=== PATIENT | male | born 1955 | race Caucasian/White ===

== ENCOUNTER → 2021-02-09 11:08 | Outpatient (REF) | payer MEDICARE, SELFPAY | LOC: ANHLAB 11:08 | PROVIDERS: PCP Family Medicine; Visit Provider Nurse Practitioner | DX: C44.319 Basal cell carcinoma of skin of other parts of face (principal) | CPT/HCPCS: 88305 ==

== ENCOUNTER → 2021-04-10 09:37 | Outpatient (REF) | payer MEDICARE, SELFPAY | LOC: ANHLAB 09:37 | PROVIDERS: PCP Family Medicine; Visit Provider Nurse Practitioner | DX: C44.319 Basal cell carcinoma of skin of other parts of face (principal) | CPT/HCPCS: 88305; 88331; 88332 ==

== ENCOUNTER 2022-01-16 00:23 | Day surgery (SDC) | payer MEDICARE, SELFPAY ==
[2021-12-27 10:39] VITALS: BMI 26.4
[2022-01-16 08:45] VITALS: BP 120/73; PULSE 98; RESP 18; TEMP 36.8; O2SAT 98
[2022-01-16] MEDS: LACTATED RINGERS 1,000 ML 150 ML IV CONT (08:48)
--- NOTE | 2022-01-16 09:21 | WPDGICN ---
Assessment and Plan Assessment and plan (1) Positive colorectal cancer screening using Cologuard test: Code(s): R19.5 - Other fecal abnormalities Status: Acute Assessment and Plan: Patient presents for screening colonoscopy because of positive Cologuard test. Further recommendations will be given after endoscopy. GI Consult Note Consult date/time: 01/16/22 09:21 Reason for consult: Positive Cologuard test. HPI: Stanislav Cho is a 66 year old male Presents for screening colonoscopy. Patient recently found to have some positive Cologuard test. Patient's current weight appetite bowel movements are normal. He denies abdominal pain. He has had no bleeding. Family history is noncontributory. Patient's past medical history is significant for atherosclerotic heart disease, atrial fibrillation, COPD. Review of Systems Review of Systems: Review of systems is noncontributory. [facility] Past Medical History Medical History (Updated 01/16/22 @ 09:22 by Lokesh Burnham MD) Acute arthritis Afib Emphysema lung Rheumatoid osteoperiostitis Surgical History Surgical History History of shoulder surgery History of surgery on arm Family History Family History Sibling Heart disease Skin cancer Social History Social History Smoking status: Former smoker Tobacco type: cigarettes Alcohol intake: never Substance use: current Substance use type: marijuana Living arrangements: alone Spiritual care concerns: No Meds Home Medications and Allergies Home Medications Medication Instructions Recorded Confirmed Type albuterol sulfate [Ventolin HFA] 1 inh inhalation Q4H PRN Shortness 02/09/21 01/16/22 History Of Breath alendronate 70 mg tablet 70 mg PO WEEKLY 02/09/21 01/16/22 History ergocalciferol (vitamin D2) 1,250 1,250 mcg PO WEEKLY 02/09/21 01/16/22 History mcg (50,000 unit) capsule fluticasone propionate 50 1 spray intranasal DAILY 02/09/21 01/16/22 History mcg/actuation nasal spray,suspension (Allergy Relief (fluticasone)) nitroglycerin 0.4 mg sublingual 0.4 mg sublingual Q5M PRN Chest 02/09/21 01/16/22 History tablet Pain vitamin B12 0.5 mg-folic acid 1 mg 1 tablet PO DAILY 02/09/21 01/16/22 History tablet aspirin 325 mg tablet,delayed 325 mg PO DAILY 12/20/21 01/16/22 History release atorvastatin 40 mg tablet 40 mg PO DAILY 12/27/21 01/16/22 History Allergies Allergy/AdvReac Type Severity Reaction Status Date / Time No Known Allergies Allergy Verified 01/16/22 08:44 Vital Signs Vital Signs - 24 hr 01/16/22 08:45 Temperature 98.3 F Pulse Rate 98 Respiratory Rate 18 Blood Pressure 120/73 Pulse Oximetry 98 Oxygen Delivery Room Air Exam Narrative: Physical exam reveals patient to be alert. Vital signs stable. HEENT exam is unremarkable. Patient is anicteric. Lungs are clear to auscultation and percussion. Heart is without murmur or extra sounds. Abdominal exam bowel sounds are present soft nontender with no organomegaly. Digital external rectal exam is normal.
--- NOTE | 2022-01-16 10:01 | WPDANESEPPF ---
Anes - Initial Pre Proc Eval Procedure: Operation Date: 01/16/22 10:00 Proposed Procedures p Colonoscopy - Lokesh Burnham MD Date/Time: 01/16/22 10:01 Surgeon: Lokesh Burnham MD Pre Op Diagnosis: positive cologuard Patient Data Age: 66 Gender: M Height: 1.85 m Weight: 89.4 kg Last Vital Signs Temp 98.3 F 01/16/22 08:45 Pulse 98 01/16/22 08:45 Resp 18 01/16/22 08:45 BP 120/73 01/16/22 08:45 Pulse Ox 98 01/16/22 08:45 O2 Del Method Room Air 01/16/22 08:45 Allergies Allergy/AdvReac Type Severity Reaction Status Date / Time No Known Allergies Allergy Verified 01/16/22 08:44 Home Medications Medication Instructions Recorded Confirmed Type albuterol sulfate [Ventolin HFA] 1 inh inhalation Q4H PRN Shortness 02/09/21 01/16/22 History Of Breath alendronate 70 mg tablet 70 mg PO WEEKLY 02/09/21 01/16/22 History ergocalciferol (vitamin D2) 1,250 1,250 mcg PO WEEKLY 02/09/21 01/16/22 History mcg (50,000 unit) capsule fluticasone propionate 50 1 spray intranasal DAILY 02/09/21 01/16/22 History mcg/actuation nasal spray,suspension (Allergy Relief (fluticasone)) nitroglycerin 0.4 mg sublingual 0.4 mg sublingual Q5M PRN Chest 02/09/21 01/16/22 History tablet Pain vitamin B12 0.5 mg-folic acid 1 mg 1 tablet PO DAILY 02/09/21 01/16/22 History tablet aspirin 325 mg tablet,delayed 325 mg PO DAILY 12/20/21 01/16/22 History release atorvastatin 40 mg tablet 40 mg PO DAILY 12/27/21 01/16/22 History Patient hx anesthesia problems: none Family hx anesthesia problems: none Results Review: All pre-operative results and documents have been reviewed as part of the pre-operative evaluation. [facility], [facility] Past Medical History Medical History (Updated 01/16/22 @ 09:22 by Lokesh Burnham MD) Acute arthritis Afib Emphysema lung Rheumatoid osteoperiostitis Surgical History Surgical History History of shoulder surgery History of surgery on arm Family History Family History Sibling Heart disease Skin cancer Social History Social History Smoking status: Former smoker Tobacco type: cigarettes Alcohol intake: never Substance use: current Substance use type: marijuana Living arrangements: alone Spiritual care concerns: No Anes - Eval Final PreProcedure Day of Procedure 01/16/22 10:01 Patient weight: normal Heart: irregular rhythm Lungs: clear to auscultation Airway: Mallampati scale class III Neurological: alert and oriented Last oral intake: >/= 8 hours ASA classification: III Emergent: no Anesthetic plan: proceed Anesthesia type and monitoring: general GIVS and standard monitoring Results Review: All pre-operative results and documents have been reviewed as part of the pre-operative evaluation. Informed Consent: The patient's anesthetic plan and its attendant risks and benefits were discussed with the patient/family/POA. Questions were solicited and answers provided to the satisfaction of the patient/family/POA.
[2022-01-16 10:33] VITALS: BP 89/62; PULSE 78; RESP 23; O2SAT 98
[2022-01-16 10:43] VITALS: BP 104/70; PULSE 76; RESP 21; O2SAT 100
[2022-01-16 10:53] VITALS: BP 116/77; PULSE 81; RESP 23; O2SAT 100
== END 2022-01-16 10:58 | disposition home or self-care (01) ==
PROVIDERS: PCP Physician Assistant; Visit Provider Internal Medicine Gastroenterology
PROC: 0DJD8ZZ Inspection of Lower Intestinal Tract, Via Natural or Artificial Opening Endoscopic (ICD-10-PCS; CPT 45378; principal; 2022-01-16 10:00)
DX: Z12.11 Encounter for screening for malignant neoplasm of colon (principal); R19.5 Other fecal abnormalities; D12.3 Benign neoplasm of transverse colon; D12.2 Benign neoplasm of ascending colon; K64.8 Other hemorrhoids; I48.91 Unspecified atrial fibrillation; J43.9 Emphysema, unspecified; I25.10 Atherosclerotic heart disease of native coronary artery without angina pectoris; Z87.891 Personal history of nicotine dependence; F12.90 Cannabis use, unspecified, uncomplicated; Z79.51 Long term (current) use of inhaled steroids; Z79.82 Long term (current) use of aspirin
CPT/HCPCS: 45385; 88305; J2704; J7120

== ENCOUNTER 2022-01-22 07:13 | Outpatient (CLI) | payer MEDICARE, SELFPAY ==
--- NOTE | ~2022-01-22 | NM_ITS ---
EXAMINATION: NM sera stress w perfusion DATE: 01/22/2022 11:16 INDICATION: Chest pain. TECHNIQUE: Rest images were obtained following intravenous administration of 11.1 mCi Tc99m tetrofosm in (Myoview). The patient was infused intravenously with Lexiscan (regadenoson). Then, 34.5 mCi Tc99m tetrofosmin (Myoview) was administered intravenously, and stress images were obtained. Data was darya nstructed into short axis and horizontal and vertical long axis SPECT images. Gated SPECT images were also obtained. COMPARISON: None. FINDINGS: There is no definite reversible or fixed perfusion abnormality to suggest ischemia or infar ction. There is global hypokinesis. Left ventricular ejection fraction measures 37%. IMPRESSION: 1. No definite ischemia or infarct. 2. Global hypokinesis with left ventricular ejection fraction measuring 37%. Reviewed, dictated and finalized at location B.
--- NOTE | 2022-01-22 07:33 | EST_ITS ---
Patient Info Name: Stanislav Cho Age: 66 years : 1955 Gender: Male Ht: 73 in Wt: 200 lbs BSA: 2.17 m2 HR: 90 bpm BP: 104 / 71 mmHg Heart Rhythm: Sinus Arrhythmia Exam Date: 01/22/2022 9:10 AM Exam Location: [facility] Stress Patient Status: Outpatient Admit Date: 01/22/2022 Staff Ordering Physician: Jorge Alberto Carlson DO Attending Provider: Jorge Alberto Carlson DO Exercise Technologist: Jessica Vargas CT Exercise Physician: Jorge Alberto Carlson DO Exam Type: CA stress sera w NM Study Info Indications R06.00 - Dyspnea, unspecified A regadenoson stress test was performed. Summary 1. 1. Negative lexiscan stress test for ischemic ST changes by ECG criteria. 2. 2. Stable hemodynamics throughout the test. 3. 3. Nuclear scan to follow and will be reported separately. Please correlate with it. 4. 4. Patient informed of the above results. Protocol: Lexiscan Stress ECG Details Stage: REST Duration (min): 0 min : 51 sec HR (bpm): 89 SBP (mmHg): 139 DBP (mmHg): 54 Stage: REST Duration (min): 7 min : 12 sec HR (bpm): 109 SBP (mmHg): 139 DBP (mmHg): 54 Stage: STAGE 1 Duration (min): 1 min : 0 sec HR (bpm): 110 SBP (mmHg): 104 DBP (mmHg): 71 Stage: RECOVERY Duration (min): 1 min : 0 sec HR (bpm): 124 SBP (mmHg): 104 DBP (mmHg): 71 Stage: RECOVERY Duration (min): 2 min : 0 sec HR (bpm): 140 SBP (mmHg): 104 DBP (mmHg): 71 Stage: RECOVERY Duration (min): 3 min : 0 sec HR (bpm): 127 SBP (mmHg): 95 DBP (mmHg): 73 Stage: RECOVERY Duration (min): 3 min : 52 sec HR (bpm): 106 SBP (mmHg): 95 DBP (mmHg): 73 Rest HR: 109 bpm Peak HR: 146 bpm Rest Sys BP: 139 mmHg Peak Sys BP: 104 mmHg Max Pred HR: 156 bpm % Max Pred HR: 94 % Target HR: 133 bpm Max RPP: 15,184 bpm*mmHg Termination Reason: Completed protocol Cardiac Symptoms: Shortness of breath Total Time: 1 min : 0 sec Rest Hazel BP: 54 mmHg Peak Hazel BP: 71 mmHg Total Dose: 0.4 mg Resting ECG Atrial fibrillation. Stress ECG No ST changes. Arrhythmias None other than atrial fib. Report Signatures
--- NOTE | 2022-01-22 07:33 | ECHO_ITS ---
Patient Info Name: Stanislav Cho Age: 66 years : 1955 Gender: Male Ht: 73 in Wt: 195 lbs BSA: 2.14 m2 HR: 148 bpm BP: 115 / 71 mmHg Heart Rhythm: Atrial Fibrillation Technical Quality: Good Exam Date: 01/22/2022 7:49 AM Exam Location: [facility] Patient Status: Outpatient Admit Date: 01/22/2022 Staff Ordering Physician: Jorge Alberto Carlson DO Hourly Team Members: Aneta Best RDCS Attending Provider: Jorge Alberto Carlson DO Referring Physician: Aldo CLANCY; Exam Type: CA echo doppler color flow Study Info Indications R06.00 - Dyspnea, unspecified Complete two-dimensional, color flow and Doppler transthoracic echocardiogram is performed. Summary 1. Complete two-dimensional, color flow and Doppler transthoracic echocardiogram is performed. 2. Left ventricular chamber dimension is normal. 3. Left ventricular systolic function is moderately reduced, estimated at 40-45%. 4. The left ventricular diastolic function is normal. 5. E/e' 6 is not elevated. 6. Global longitudinal strain is abnormal at -11.1%. 7. Atrial fibrillation. 8. Right ventricular systolic function is reduced and with abnormal TAPSE 1.3 cm. 9. Right ventricular chamber dimension is mildly enlarged. 10. Left atrial chamber dimension is severely enlarged. 11. Right atrial chamber dimension is moderately enlarged. 12. There is mild aortic valve regurgitation. 13. There is mild mitral valve regurgitation. 14. There is mild tricuspid valve regurgitation. 15. No pulmonary hypertension, estimated pulmonary arterial systolic pressure is 31 mmHg. Left Ventricle E/e' 6 is not elevated. Atrial fibrillation. Global longitudinal strain is abnormal at -11.1%. Left ventricular chamber dimension is normal. Left ventricular systolic function is moderately reduced, estimated at 40-45%. The left ventricular diastolic function is normal. Right Ventricle Right ventricular systolic function is reduced and with abnormal TAPSE 1.3 cm. Right ventricular chamber dimension is mildly enlarged. Left Atria Left atrial chamber dimension is severely enlarged. Right Atria Right atrial chamber dimension is moderately enlarged. Aortic Valve The aortic valve is trileaflet. There is no aortic valve stenosis. There is mild aortic valve regurgitation. Pulmonic Valve There is no pulmonic regurgitation. Mitral Valve There is no mitral valve stenosis. There is mild mitral valve regurgitation. Tricuspid Valve There is mild tricuspid valve regurgitation. No pulmonary hypertension, estimated pulmonary arterial systolic pressure is 31 mmHg. Pericardium/Pleural There is no pericardial effusion. Inferior Vena Cava Normal inferior vena cava with >50% collapse upon inspiration consistent with normal right atrial pressure, 5 mmHg. Aorta The aortic root size at the sinus of Valsalva is normal. Left Ventricular Outflow Tract Name Value Normal LVOT 2D LVOT Diameter 2.0 cm LVOT Doppler LVOT Peak Gradient 3 mmHg LVOT Mean Gradient 2 mmHg LVOT VTI 15 cm
== END 2022-01-22 07:14 | disposition home or self-care (01) ==
LOC: ANHCARD 07:19
PROVIDERS: PCP Physician Assistant; Visit Provider Internal Medicine Cardiovascular Disease
DX: R07.9 Chest pain, unspecified (principal); R06.00 Dyspnea, unspecified; I34.0 Nonrheumatic mitral (valve) insufficiency; I35.1 Nonrheumatic aortic (valve) insufficiency; I36.1 Nonrheumatic tricuspid (valve) insufficiency
CPT/HCPCS: 78452; 93017; 93306; A9502; J2785

== ENCOUNTER 2022-12-06 12:07 | Emergency (ER) | payer MEDICARE, SELFPAY ==
--- NOTE | ~2022-12-06 | XR_ITS ---
Clinical Indication: Status post fall PA and lateral views of the chest: Comparison: None Findings: There is COPD and/or other chronic interstitial disease. No consolidation or pleural effusi on. No pneumothorax.. Cardiomediastinal silhouette is within normal limits. [id number] angelo amina deformity of a midthoracic vertebral body is present, likely T8. Impression: Mild chronic compression fracture of what is probably T8, age indeterminate. COPD and/or other chronic interstitial disease. Reviewed, dictated and finalized at location M. Impression: Mild chronic compression fracture of what is probably T8, age indeterminate. COPD and/or other chronic interstitial disease.
--- NOTE | ~2022-12-06 | CT_ITS ---
EXAMINATION: CTA chest PE protocol DATE: 12/06/2022 17:01 INDICATION: Chest injury. Chest pain. TECHNIQUE: Computed tomography angiography (CTA) of the chest was performed with 100 mL Omnipaque-350 intravenous contrast timed to evaluate the pulmonary arteries. Coronal maximum intensity projection 3D-reconstructions were created by the technologist. Automated exposure control and iterative reconst ruction technique were employed. The dose-length product was 421.32 mGy-cm. COMPARISON: Chest 2 views 12/06/2022 FINDINGS: There is moderate emphysema. There is mild scarring at the lung apices. There is a 4 mm nod ule in right middle lobe, likely benign. A calcified right lung nodule and calcified right hilar and mediastinal lymph nodes are consistent with old granulomatous disease. No pleural effusion. Cardiomeg alyson is noted. No pericardial effusion. There is a small sliding hiatal hernia. There is a right poste rior diaphragmatic hernia containing fat. There is no pulmonary embolus. There is levoscoliosis of up per thoracic spine. There are chronic compression fractures of T8, T11, and L2. There is mild thoraci c spondylosis. There is a nondisplaced fracture involving the anterior cortex of the body of the ster num. There are fractures of anterior left third-fifth ribs. IMPRESSION: 1. Nondisplaced fracture of the sternum. 2. Fractures of anterior left third-fifth ribs. 3. No pulmonary embolus. 4. Moderate emphysema. Reviewed, dictated and finalized at location E.
[2022-12-06 12:16] VITALS: BP 120/71; PULSE 98; RESP 18; TEMP 36.2; O2SAT 96
--- NOTE | 2022-12-06 12:22 | ECG_ITS ---
Measurements Intervals [place] Rate: 100 P: [place]: 0 QRS: 11 QRSD: 86 T: 55 QT: 365 QTc: 471 Interpretive Statements ATRIAL FIBRILLATION WITH RAPID VENTRICULAR RESPONSE MINIMAL ST DEPRESSION [0.025+ mV ST DEPRESSION] ABNORMAL ECG NO PREVIOUS ECG AVAILABLE FOR COMPARISON Electronically Signed On 12-06-2022 14:25:15 CDT by Yasir Martinez M.D.
--- NOTE | 2022-12-06 15:43 | PC.NURSE ---
pt noted to have large bruising to right side of chest. pt c/o increased pain with movement and deep breathing. denies sob.
--- NOTE | 2022-12-06 16:14 | ED.FALL ---
HPI - Fall General Chief Complaint: Fall Stated Complaint: fall Time Seen by Provider: 12/06/22 15:57 History of Present Illness HPI Narrative: Patient is a 67-year-old male here for evaluation of chest pain and bruising after he had a fall yesterday. Patient states that he tripped on an object in his bathroom causing him to fall forward and strike his chest against the ground. Since the fall he has had a large area of bruising to his chest, chest pain and difficulty breathing. He has a history of atrial fibrillation and COPD and does take daily aspirin. No head injury or loss of consciousness. Related Data Home Medications Medication Instructions Recorded Confirmed albuterol sulfate [Ventolin HFA] 1 inh inhalation Q4H PRN Shortness 02/09/21 08/17/22 Of Breath alendronate 70 mg tablet 70 mg PO WEEKLY 02/09/21 08/17/22 ergocalciferol (vitamin D2) 1,250 1,250 mcg PO WEEKLY 02/09/21 08/17/22 mcg (50,000 unit) capsule fluticasone propionate 50 1 spray intranasal DAILY 02/09/21 08/17/22 mcg/actuation nasal spray,suspension (Allergy Relief (fluticasone)) nitroglycerin 0.4 mg sublingual 0.4 mg sublingual Q5M PRN Chest 02/09/21 08/17/22 tablet Pain vitamin B12 0.5 mg-folic acid 1 mg 1 tablet PO DAILY 02/09/21 08/17/22 tablet aspirin 325 mg tablet,delayed 325 mg PO DAILY 12/20/21 08/17/22 release atorvastatin 40 mg tablet 40 mg PO DAILY 12/27/21 08/17/22 Allergies Allergy/AdvReac Type Severity Reaction Status Date / Time No Known Allergies Allergy Verified 08/17/22 10:04 Review of Systems Review of Systems: Gen: Denies fevers or chills Eyes: Denies eye pain or visual change ENT: Denies congestion Respiratory: Reports shortness of breath CV: Reports chest pain GI: Denies abdominal pain nausea, emesis or diarrhea : denies burning, urgency, frequency or hematuria Musculoskeletal: Denies back pain or muscle pain Neuro: Denies numbness, tingling, weakness or focal weakness Skin: Denies rash Except as documented, all other systems reviewed and negative [facility] Past Medical History Medical History Acute arthritis Afib Emphysema lung Rheumatoid osteoperiostitis Surgical History Surgical History History of shoulder surgery History of surgery on arm Family History Family History Sibling Heart disease Skin cancer Social History Social History Smoking status: Former smoker Tobacco type: cigarettes Alcohol intake: never Substance use: current Substance use type: marijuana Living arrangements: alone Spiritual care concerns: No Exam Narrative: APPEARANCE: Well appearing, no pain in distress, well-nourished. Head: Normocephalic and atraumatic. EYES: PERRLA/EOMI, conjunctivae clear NOSE: No nasal drainage EARS: External ear normal in appearance THROAT: Oropharynx is clear. Mucous membranes are moist. NECK: Supple. No adenopathy, no masses. RESPIRATORY: Airway patent, respirations nonlabored. Clear to auscultation bilaterally, no rales, rhonchi, wheezing. CARDIOVASCULAR: irregular rhythm. Regular rate without murmurs, rubs, or gallops. ABDOMINAL: Normoactive bowel sounds. Soft, nontender, nondistended. No rebound tenderness or guarding. MUSCULOSKELETAL: Extremities are warm and well-perfused. Moves all extremities well. No edema. NEURO: Normal speech. No focal neurologic deficits. SKIN: there is a large area of ecchymosis to the sternum that is tender to palpation, measures 6 x 7 cm, in various stages of healing. no tenderness to palpation along the ribs. PSYCHIATRIC: Normal affect/mood. Course Vital Signs Vital signs: Vital Signs Temperature 97.2 F L 12/06/22 12:16 Pulse Rate 98 12/06/22 12:16 Respiratory Rate 18 /
[2022-12-06 16:55] LABS: Estimated CRCL calculation 57 ml/min; Estimated Glomerular Filt Rate 55
[2022-12-06 16:58] LABS: Basophils Percent Auto 0.3 % (0.2-1.2); Eosinophils Absolute Auto 0.1 K/mm3 (0-0.3); Eosinophils Percent Auto 1.3 % (0-4.4); Hemoglobin 17.2 g/dL (14.0-18.0); Immature Granulocyte Absolute 0.04 K/mm3 (0.00-0.031); Immature Granulocyte Percent A 0.4 % (0-0.5); Lymphocytes Absolute Auto 1.64 K/mm3 (0.9-3.2); Lymphocytes Percent Auto 18.2 % (18.3-44.2); Mean Corpuscular HGB Conc 33.7 g/dl (32-36); Mean Corpuscular Hemoglobin 34.8 pg (26-34); Mean Corpuscular Volume 103.2 fl (80-100); Mean Platelet Volume 10.4 fl (7.4-10.4); Monocytes Absolute Auto 0.8 K/mm3 (0.1-0.6); Monocytes Percent Auto 8.9 % (2.6-8.5); Neutrophils Absolute Auto 6.4 K/mm3 (1.3-6.7); Neutrophils Percent Auto 70.9 % (45.5-73.1); Platelet Count Result 209 k/mm3 (150-375); Red Blood Count 4.94 M/mm3 (4.6-6.20); Red Cell Distribution Width 13.9 % (11.5-14.5)
[2022-12-06] MEDS: HYDROcodone/acetaminophen (*CRX) 5-325 MG TABLET 1 TAB PO (17:04)
[2022-12-06] MEDS: LIDOCAINE 5% PATCH 1 PATCH TRANSDERM (17:05)
[2022-12-06 17:08] LABS: Alanine Aminotransferase 23 U/L (6-50); Albumin Level 4.5 g/dL (3.5-5.1); Alkaline Phosphatase 96 U/L (38-126); Anion Gap 8 mmol/L (8-16); Aspartate Amino Transferase 28 U/L (17-59); Bilirubin,Total 1.1 mg/dL (0.2-1.3); Blood Urea Nitrogen 16 mg/dL (9-20); Calcium 9.1 mg/dL (8.4-10.2); Carbon Dioxide 25 mmol/L (22-30); Chloride 105 mmol/L (98-107); Estimated CRCL calculation 62 ml/min; Estimated Glomerular Filt Rate > 60; Glucose 100 mg/dL (65-110); Potassium 4.7 mmol/L (3.4-5.0); Sodium 138 mmol/L (137-145)
[2022-12-06 17:20] LABS: Troponin I < 0.012 ng/mL (0.000-0.034)
== END 2022-12-06 17:35 | disposition left against medical advice (07) ==
LOC: ANHED 17:36
PROVIDERS: Emergency Provider Physician Assistant; PCP Physician Assistant
DX: S22.22XA Fracture of body of sternum, initial encounter for closed fracture (principal); S22.42XA Multiple fractures of ribs, left side, initial encounter for closed fracture; I48.91 Unspecified atrial fibrillation; M19.90 Unspecified osteoarthritis, unspecified site; J43.9 Emphysema, unspecified; Z79.82 Long term (current) use of aspirin; Z87.891 Personal history of nicotine dependence; W18.09XA Striking against other object with subsequent fall, initial encounter
CPT/HCPCS: 71046; 71275; 80053; 84484; 85025; 93005; 99284; A9270; Q9967

== ENCOUNTER 2023-02-15 13:24 | Outpatient (CLI) | payer MEDICARE, SELFPAY ==
--- NOTE | 2023-02-15 13:41 | ECHO_ITS ---
Patient Info Name: Stanislav Cho Age: 67 years : 1955 Gender: Male Ht: 72 in Wt: 208 lbs BSA: 2.21 m2 HR: 67 bpm BP: 106 / 68 mmHg Heart Rhythm: Atrial Fibrillation Technical Quality: Good Exam Date: 02/15/2023 2:30 PM Exam Location: [facility] Patient Status: Outpatient Admit Date: 02/15/2023 Staff Ordering Physician: Jorge Alberto Carlson DO Community Living Coach: Denise Zarate RDCS Attending Provider: Jorge Alberto Carlson DO Referring Physician: Aldo CLANCY; Exam Type: CA echo doppler color flow Study Info Indications - heart disease/unspicify Complete two-dimensional, color flow and Doppler transthoracic echocardiogram is performed. Summary 1. Complete two-dimensional, color flow and Doppler transthoracic echocardiogram is performed. 2. Left ventricular chamber dimension is mildly enlarged. 3. Left ventricular systolic function is mildly reduced, estimated at 45-50%. 4. The left ventricular diastolic function is abnormal. 5. E/e' 11 is mildly elevated. 6. Right ventricular chamber dimension is mildly enlarged. 7. Right ventricular systolic function is mildly reduced and with abnormal TAPSE 1.3 cm. 8. Left atrial chamber dimension is severely enlarged. 9. Right atrial chamber dimension is moderately enlarged. 10. There is mild aortic valve regurgitation. 11. There is mild mitral valve regurgitation. 12. There is mild tricuspid valve regurgitation. 13. No pulmonary hypertension, estimated pulmonary arterial systolic pressure is 21 mmHg. Left Ventricle E/e' 11 is mildly elevated. Left ventricular chamber dimension is mildly enlarged. Left ventricular systolic function is mildly reduced, estimated at 45-50%. The left ventricular diastolic function is abnormal. Right Ventricle Right ventricular chamber dimension is mildly enlarged. Right ventricular systolic function is mildly reduced and with abnormal TAPSE 1.3 cm. Left Atria Left atrial chamber dimension is severely enlarged. Right Atria Right atrial chamber dimension is moderately enlarged. Aortic Valve The aortic valve is trileaflet. There is no aortic valve stenosis. There is mild aortic valve regurgitation. Pulmonic Valve There is no pulmonic regurgitation. Mitral Valve There is no mitral valve stenosis. There is mild mitral valve regurgitation. Tricuspid Valve There is mild tricuspid valve regurgitation. No pulmonary hypertension, estimated pulmonary arterial systolic pressure is 21 mmHg. Pericardium/Pleural There is no pericardial effusion. Inferior Vena Cava Normal inferior vena cava with >50% collapse upon inspiration consistent with normal right atrial pressure, 5 mmHg. Aorta The aortic root size at the sinus of Valsalva is normal. Left Ventricular Outflow Tract Name Value Normal LVOT 2D LVOT Diameter 2.1 cm LVOT Doppler LVOT Peak Gradient 2 mmHg LVOT Mean Gradient 1 mmHg LVOT VTI 12 cm LVOT VTI/AV VTI Ratio 0.8 LVOT Stroke Volume 40 ml LVOT CO 3.6 l/min LVOT CI 1.6 l/min/m2 Pulmonic Valv
== END 2023-02-15 13:25 | disposition home or self-care (01) ==
LOC: ANHLAB 13:25
PROVIDERS: PCP Physician Assistant; Visit Provider Internal Medicine Cardiovascular Disease
DX: I51.9 Heart disease, unspecified (principal); I48.91 Unspecified atrial fibrillation
CPT/HCPCS: 93306

== ENCOUNTER 2023-02-26 01:37 | Day surgery (SDC) | payer MEDICARE, SELFPAY ==
[2023-02-18 12:58] VITALS: BMI 27.5
--- NOTE | 2023-02-26 07:31 | PM.HPGS ---
History of Present Illness History of Present Illness Consent: Risks, benefits, and alternatives have been discussed and questions answered. Patient agrees to proceed with procedure. Chief complaint: hx colon polyps Narrative: Stanislav Cho is a 67 year old male Presents for colonoscopy. Patient had a colonoscopy 1 year ago because of positive Cologuard test he had multiple colon polyps identified time of that exam. There were very large. Several large polyps particularly in the ascending colon more uncertain to be totally excised. Patient presents today for follow-up colonoscopy. Patient reports his current weight appetite and bowel movements are normal. Patient denies abdominal pain. He has had no bleeding. Family history is noncontributory. Review of Systems Review of Systems: Review of systems noncontributory. [facility] Past Medical History Medical History Acute arthritis Afib Emphysema lung Rheumatoid osteoperiostitis Surgical History Surgical History History of shoulder surgery History of surgery on arm Family History Family History Sibling Heart disease Skin cancer Social History Social History Smoking status: Former smoker Tobacco type: cigarettes Alcohol intake: never Substance use: current Substance use type: marijuana Other substance usage details: daily use Living arrangements: alone Spiritual care concerns: No Meds Home Medications and Allergies Home Medications Medication Instructions Recorded Confirmed Type albuterol sulfate [Ventolin HFA] 1 inh inhalation Q4H PRN Shortness 02/09/21 02/22/23 History Of Breath ergocalciferol (vitamin D2) 1,250 1,250 mcg PO WEEKLY 02/09/21 02/22/23 History mcg (50,000 unit) capsule fluticasone propionate 50 1 spray intranasal DAILY 02/09/21 02/22/23 History mcg/actuation nasal spray,suspension (Allergy Relief (fluticasone)) nitroglycerin 0.4 mg sublingual 0.4 mg sublingual Q5M PRN Chest 02/09/21 02/22/23 History tablet Pain vitamin B12 0.5 mg-folic acid 1 mg 1 tablet PO DAILY 02/09/21 02/22/23 History tablet aspirin 325 mg tablet,delayed 325 mg PO DAILY 12/20/21 02/22/23 History release atorvastatin 40 mg tablet 40 mg PO DAILY 12/27/21 02/22/23 History losartan 25 mg tablet See Rx Instructions PO DAILY #30 01/22/22 02/22/23 Rx tabs metoprolol succinate 25 mg 25 mg PO DAILY #90 tabs 01/22/22 02/22/23 Rx tablet,extended release 24 hr (Toprol XL) sodium,potassium,mag sulfates 17.5 See Rx Instructions PO .COMPLEX 02/04/23 02/22/23 Rx gram-3.13 gram-1.6 gram oral soln #354 mL (Suprep Bowel Prep Kit) tamsulosin 0.4 mg capsule 0.4 mg PO DAILY 02/18/23 02/22/23 History Allergies Allergy/AdvReac Type Severity Reaction Status Date / Time No Known Allergies Allergy Verified 02/26/23 07:32 Exam Narrative: Physical exam reveals patient to be alert. Vital signs stable. HEENT exam is unremarkable. Patient is anicteric. Lungs are clear to auscultation and percussion. Heart is without murmur or extra sounds. Abdomen bowel sounds are present soft nontender with no organomegaly. Digital external rectal exam is normal. Assessment and Plan Assessment and plan (1) History of colon polyps: Code(s): Z86.010 - Personal history of colonic polyps Status: Acute Assessment and Plan: Patient has a history of multiple large polyps removed at time of colonoscopy 1 year ago in January of 2022. Plan for surveillance colonoscopy at this time to ensure complete excision and no new polyp formation. Because of multiple large polyps more frequent examinations may be required for this patient.
[2023-02-26 07:32] VITALS: BP 133/82; PULSE 99; RESP 16; TEMP 36.1; O2SAT 99
[2023-02-26] MEDS: LACTATED RINGERS 1,000 ML 150 ML IV CONT (07:41)
--- NOTE | 2023-02-26 08:27 | WPDANESEPPF ---
Anes - Initial Pre Proc Eval Procedure: Operation Date: 02/26/23 08:30 Proposed Procedures p Colonoscopy - Lokesh Burnham MD Date/Time: 02/26/23 08:27 Surgeon: Lokesh Burnham MD Pre Op Diagnosis: hx colon polyps Patient Data Age: 67 Gender: M Height: 1.85 m Weight: 91.8 kg Last Vital Signs Temp 97 F L 02/26/23 07:32 Pulse 99 02/26/23 07:32 Resp 16 02/26/23 07:32 BP 133/82 02/26/23 07:32 Pulse Ox 99 02/26/23 07:32 O2 Del Method Room Air 02/26/23 07:32 Allergies Allergy/AdvReac Type Severity Reaction Status Date / Time No Known Allergies Allergy Verified 02/26/23 07:32 Home Medications Medication Instructions Recorded Confirmed Type albuterol sulfate [Ventolin HFA] 1 inh inhalation Q4H PRN Shortness 02/09/21 02/22/23 History Of Breath ergocalciferol (vitamin D2) 1,250 1,250 mcg PO WEEKLY 02/09/21 02/22/23 History mcg (50,000 unit) capsule fluticasone propionate 50 1 spray intranasal DAILY 02/09/21 02/22/23 History mcg/actuation nasal spray,suspension (Allergy Relief (fluticasone)) nitroglycerin 0.4 mg sublingual 0.4 mg sublingual Q5M PRN Chest 02/09/21 02/22/23 History tablet Pain vitamin B12 0.5 mg-folic acid 1 mg 1 tablet PO DAILY 02/09/21 02/22/23 History tablet aspirin 325 mg tablet,delayed 325 mg PO DAILY 12/20/21 02/22/23 History release atorvastatin 40 mg tablet 40 mg PO DAILY 12/27/21 02/22/23 History losartan 25 mg tablet See Rx Instructions PO DAILY #30 01/22/22 02/22/23 Rx tabs metoprolol succinate 25 mg 25 mg PO DAILY #90 tabs 01/22/22 02/22/23 Rx tablet,extended release 24 hr (Toprol XL) sodium,potassium,mag sulfates 17.5 See Rx Instructions PO .COMPLEX 02/04/23 02/22/23 Rx gram-3.13 gram-1.6 gram oral soln #354 mL (Suprep Bowel Prep Kit) tamsulosin 0.4 mg capsule 0.4 mg PO DAILY 02/18/23 02/22/23 History Patient hx anesthesia problems: none Family hx anesthesia problems: none Results Review: All pre-operative results and documents have been reviewed as part of the pre-operative evaluation. [facility] Past Medical History Medical History Acute arthritis Afib Emphysema lung Rheumatoid osteoperiostitis Surgical History Surgical History History of shoulder surgery History of surgery on arm Family History Family History Sibling Heart disease Skin cancer Social History Social History Smoking status: Former smoker Tobacco type: cigarettes Alcohol intake: never Substance use: current Substance use type: marijuana Other substance usage details: daily use Living arrangements: alone Spiritual care concerns: No Anes - Eval Final PreProcedure Day of Procedure 02/26/23 08:27 Patient weight: normal Heart: regular rate and rhythm Lungs: clear to auscultation Airway: Mallampati scale class II Neurological: alert and oriented Last oral intake: >/= 8 hours ASA classification: III Emergent: no Anesthetic plan: proceed Anesthesia type and monitoring: general GIVS and standard monitoring Results Review: All pre-operative results and documents have been reviewed as part of the pre-operative evaluation. Informed Consent: The patient's anesthetic plan and its attendant risks and benefits were discussed with the patient/family/POA. Questions were solicited and answers provided to the satisfaction of the patient/family/POA.
[2023-02-26 09:01] VITALS: BP 88/58; PULSE 90; RESP 25; O2SAT 95
[2023-02-26 09:11] VITALS: BP 88/64; PULSE 79; RESP 23; O2SAT 97
[2023-02-26 09:21] VITALS: BP 96/72; PULSE 76; RESP 22; O2SAT 99
== END 2023-02-26 09:30 | disposition home or self-care (01) ==
PROVIDERS: PCP Physician Assistant; Visit Provider Internal Medicine Gastroenterology
PROC: 0DJD8ZZ Inspection of Lower Intestinal Tract, Via Natural or Artificial Opening Endoscopic (ICD-10-PCS; CPT 45378; principal; 2023-02-26 08:30)
DX: Z09 Encounter for follow-up examination after completed treatment for conditions other than malignant neoplasm (principal); D12.0 Benign neoplasm of cecum; D12.2 Benign neoplasm of ascending colon; K57.30 Diverticulosis of large intestine without perforation or abscess without bleeding; K64.8 Other hemorrhoids; I48.91 Unspecified atrial fibrillation; J43.9 Emphysema, unspecified; Z87.891 Personal history of nicotine dependence; F12.90 Cannabis use, unspecified, uncomplicated; Z79.51 Long term (current) use of inhaled steroids; Z79.82 Long term (current) use of aspirin
CPT/HCPCS: 45385; 88305; J2704; J7120

== ENCOUNTER 2023-08-26 13:23 | Outpatient (CLI) | payer MEDICARE, SELFPAY ==
[2023-08-26 13:51] LABS: Cholesterol 194 mg/dL (0-200); HDL Direct 37 mg/dL; Triglycerides 72 mg/dL (<150)
[2023-08-26 14:02] LABS: LDL Cholesterol Direct 119 mg/dL
== END 2023-08-26 13:24 | disposition home or self-care (01) ==
LOC: ANHLAB 13:26
PROVIDERS: PCP Physician Assistant; Visit Provider Internal Medicine Cardiovascular Disease
DX: E78.5 Hyperlipidemia, unspecified (principal)
CPT/HCPCS: 36415; 80061

== ENCOUNTER 2023-09-10 08:21 | Outpatient (CLI) | payer MEDICARE, SELFPAY ==
--- NOTE | 2023-09-10 08:42 | ECHO_ITS ---
Patient Info Name: Stanislav Cho Age: 68 years : 1955 Gender: Male Ht: 74 in Wt: 204 lbs BSA: 2.21 m2 HR: 95 bpm BP: 101 / 72 mmHg Heart Rhythm: Atrial Fibrillation Technical Quality: Good Exam Date: 09/10/2023 9:02 AM Exam Location: Echo Lab Patient Status: Outpatient Admit Date: 09/10/2023 Staff Ordering Physician: Jorge Alberto Carlson DO Attending Provider: Jorge Alberto Carlson DO Referring Physician: Aldo CLANCY; Exam Type: CA echo doppler color flow Study Info Indications I48.1 - Persistent atrial fibrillation Complete two-dimensional, color flow and Doppler transthoracic echocardiogram is performed. Summary 1. Complete two-dimensional, color flow and Doppler transthoracic echocardiogram is performed. 2. Left ventricular chamber dimension is normal. 3. Left ventricular systolic function is moderately globally reduced, estimated at 40-45%. 4. The left ventricular diastolic function is normal. 5. E/e' 5 is not elevated. 6. Atrial fibrillation. 7. Right ventricular systolic function is moderately reduced and with abnormal TAPSE 1.1 cm. 8. Left atrial chamber dimension is severely enlarged. 9. Right atrial chamber dimension is moderately enlarged. 10. There is mild aortic valve sclerosis. 11. There is trace aortic valve regurgitation. 12. There is mild to moderate mitral valve regurgitation. 13. There is mild tricuspid valve regurgitation. 14. No pulmonary hypertension, estimated pulmonary arterial systolic pressure is 23 mmHg. Left Ventricle Atrial fibrillation. E/e' 5 is not elevated. Left ventricular chamber dimension is normal. Left ventricular systolic function is moderately globally reduced, estimated at 40-45%. The left ventricular diastolic function is normal. Right Ventricle Right ventricular systolic function is moderately reduced and with abnormal TAPSE 1.1 cm. Right ventricular chamber dimension is normal. Left Atria Left atrial chamber dimension is severely enlarged. Right Atria Right atrial chamber dimension is moderately enlarged. Aortic Valve The aortic valve is trileaflet. There is mild aortic valve sclerosis. There is no aortic valve stenosis. There is trace aortic valve regurgitation. Pulmonic Valve There is no pulmonic regurgitation. Mitral Valve There is no mitral valve stenosis. There is mild to moderate mitral valve regurgitation. Tricuspid Valve There is mild tricuspid valve regurgitation. No pulmonary hypertension, estimated pulmonary arterial systolic pressure is 23 mmHg. Pericardium/Pleural There is no pericardial effusion. Inferior Vena Cava Normal inferior vena cava with >50% collapse upon inspiration consistent with normal right atrial pressure, 5 mmHg. Aorta The aortic root size at the sinus of Valsalva is normal. Left Ventricular Outflow Tract Name Value Normal LVOT 2D LVOT Diameter 2.2 cm LVOT Doppler LVOT Peak Gradient 2 mmHg LVOT Mean Gradient 1 mmHg LVOT VTI 15 cm LVOT VTI/AV VTI Ratio 0.7 LVOT Stroke Volume 56 ml LVOT CO 4.3 l/min
== END 2023-09-10 08:22 | disposition home or self-care (01) ==
LOC: ANHCARD 08:23
PROVIDERS: PCP Physician Assistant; Visit Provider Internal Medicine Cardiovascular Disease
DX: I51.9 Heart disease, unspecified (principal); I48.19 Other persistent atrial fibrillation
CPT/HCPCS: 93306

== ENCOUNTER 2023-11-10 14:48 | Emergency (ER) | payer MEDICARE, SELFPAY ==
--- NOTE | ~2023-11-10 | CT_ITS ---
EXAMINATION: CT cervical spine wo con DATE: 11/10/2023 17:11 INDICATION: Neck injury. TECHNIQUE: Computed tomography (CT) of the cervical spine was performed without intravenous contrast. Automated exposure control and iterative reconstruction technique were employed. The dose-length pro duct was 432.95 mGy-cm. COMPARISON: None FINDINGS: The lung apices demonstrate emphysema. There is 10 degrees dextroscoliosis of cervical spin e. There is mild kyphosis of cervical spine. Vertebral body heights are normal. There is moderately d ecreased disc height at C5-C6 and mildly decreased disc height at C6-C7. The following disc levels ar e specifically discussed: C2-C3: There is no uncovertebral joint osteoarthritis. There is mild bilateral facet joint osteoarthr itis. There is no neural foraminal stenosis. There is no central canal stenosis. C3-C4: There is moderate right and mild left uncovertebral joint osteoarthritis. There is mild bilate ral facet joint osteoarthritis. There is mild bilateral neural foraminal stenosis. There is mild cent ral canal stenosis. C4-C5: There is mild bilateral uncovertebral joint osteoarthritis. There is mild bilateral facet join t osteoarthritis. There is no neural foraminal stenosis. There is mild central canal stenosis. C5-C6: There is moderate right and severe left uncovertebral joint osteoarthritis. There is mild bila teral facet joint osteoarthritis. There is mild bilateral neural foraminal stenosis. There is mild ce ntral canal stenosis. C6-C7: There is mild bilateral uncovertebral joint osteoarthritis. There is mild right and moderate l eft facet joint osteoarthritis. There is no neural foraminal stenosis. There is mild central canal st enosis. C7-T1: There is no uncovertebral joint osteoarthritis. There is moderate right and severe left facet joint osteoarthritis. There is mild bilateral neural foraminal stenosis. There is no central canal st enosis. IMPRESSION: 1. No fracture. 2. Moderate cervical spondylosis. 3. Cervical dextroscoliosis. Reviewed, dictated and finalized at location E.
--- NOTE | ~2023-11-10 | XR_ITS ---
EXAMINATION: XR shoulder RT min 2V DATE: 11/10/2023 17:26 INDICATION: Right shoulder pain. TECHNIQUE: 4 views of right shoulder were obtained. COMPARISON: None. FINDINGS: Bone alignment is normal. No acute fracture. There is an old healed fracture of proximal ri ght humerus with plate and screw fixation. There is mild osteoarthritis of glenohumeral joint and mod erate osteoarthritis of acromioclavicular joint. The lungs demonstrate emphysema and atelectasis. IMPRESSION: 1. Polyarticular osteoarthritis. Reviewed, dictated and finalized at location E.
--- NOTE | ~2023-11-10 | CT_ITS ---
EXAMINATION:CT diagnostic chest wo con DATE: 11/10/2023 17:11 INDICATION: Right upper rib pain. Fall. TECHNIQUE: Computed tomography (CT) of the chest was performed without intravenous contrast. Automate d exposure control and iterative reconstruction technique were employed. The dose-length product (DLP ) was 491.88 mGy-cm. COMPARISON: Chest CT 12/06/2022 FINDINGS: There is moderate emphysema. There is mild atelectasis bilaterally. Calcified right lung no dules and calcified right hilar lymph nodes are consistent with old granulomatous disease. Cardiomega ly is noted. No pericardial effusion. There is a small sliding hiatal hernia containing fat and ascit es. There is internal fixation of proximal right humerus. There is an old healed fracture of the ster num. There are chronic fractures of T8, T11, and L2 vertebral bodies. IMPRESSION: 1. No acute fracture. 2. Moderate emphysema. Reviewed, dictated and finalized at location E.
--- NOTE | ~2023-11-10 | CT_ITS ---
EXAMINATION: CT brain wo con DATE: 11/10/2023 17:10 INDICATION: Head injury. TECHNIQUE: Computed tomography (CT) of the head was performed without intravenous contrast. The mA wa s adjusted according to patient size. Iterative reconstruction technique was employed. The dose-lengt h product was 605.33 mGy-cm. COMPARISON: None FINDINGS: There is no intracranial hemorrhage, acute infarction, or abnormal intracranial mass lesion . The ventricles are normal in size. The orbits are normal. There is mild mucosal thickening in the p aranasal sinuses. The mastoid air cells are normal. IMPRESSION: 1. Normal brain. Reviewed, dictated and finalized at location E. IMPRESSION: 1. Normal brain.
[2023-11-10 14:53] VITALS: BP 97/64; PULSE 80; RESP 18; TEMP 36.4; O2SAT 98
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
[2023-11-10 16:07] VITALS: BP 110/68; PULSE 107; RESP 20; TEMP 36.6; O2SAT 96
[2023-11-10 17:15] VITALS: BP 110/70; PULSE 86; RESP 20; TEMP 36.6; O2SAT 99
[2023-11-10 18:00] VITALS: BP 106/66; PULSE 104; RESP 20; TEMP 36.6
== END 2023-11-10 18:08 | disposition home or self-care (01) ==
PROVIDERS: Emergency Provider Emergency Medicine; PCP Physician Assistant
DX: M54.2 Cervicalgia (principal); M25.511 Pain in right shoulder; W19.XXXA Unspecified fall, initial encounter; I48.91 Unspecified atrial fibrillation; Z79.82 Long term (current) use of aspirin; Z87.891 Personal history of nicotine dependence
CPT/HCPCS: 70450; 71250; 72125; 73030; 99284

== ENCOUNTER 2024-01-09 10:00 | Outpatient (RCR) | payer MEDICARE, SELFPAY ==
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
--- NOTE | 2023-12-09 10:59 | OPREHPOC ---
Outpatient Therapy Plan of Care This is a Multidisciplinary Plan of Care that may contain components documented by all disciplines (PT, OT, and ST.) PT Problem 1 PT Problem #1 Knowledge Deficit PT Goal 1 Goal [place] with [facility]P Target Visit 4 PT Problem 2 PT Problem #2 Impaired Range of Motion PT Goal 1 Goal Improve fady cervical rotation to pain free 65 degrees to improve muscle motility and functional facet motion Target Visit 8 PT Goal 2 Goal Improve cervical extension to 45 degrees to improve facet glide pain free in conjunction with posture Target Visit 8 PT Problem 3 PT Problem #3 Impaired Endurance PT Goal 1 Goal Patient will require no verbal or tactile cure for proper cervical and scapular positioning for exercise for independent conscious awareness of posturing Target Visit 8 PT Problem 4 PT Problem #4 Pain PT Goal 1 Goal Report no cervical pain greater than 2/10 with activity Target Visit 8
--- NOTE | 2024-01-09 17:02 | OPREHPOC ---
Outpatient Therapy Plan of Care This is a Multidisciplinary Plan of Care that may contain components documented by all disciplines (PT, OT, and ST.) PT Problem 1 PT Problem #1 Knowledge Deficit PT Goal 1 Goal [place] with HEP Target Visit 4 Progress Met PT Problem 2 PT Problem #2 Impaired Range of Motion PT Goal 1 Goal Improve fady cervical rotation to pain free 65 degrees to improve muscle motility and functional facet motion Target Visit 8 Progress Met PT Goal 2 Goal Improve cervical extension to 45 degrees to improve facet glide pain free in conjunction with posture Target Visit 8 Progress Met PT Problem 3 PT Problem #3 Impaired Endurance PT Goal 1 Goal Patient will require no verbal or tactile cure for proper cervical and scapular positioning for exercise for independent conscious awareness of posturing Target Visit 8 Progress Met PT Problem 4 PT Problem #4 Pain PT Goal 1 Goal Report no cervical pain greater than 2/10 with activity Target Visit 8 Progress Met
--- NOTE | 2024-01-09 17:03 | PTOPDC ---
Assessment and note entered by Gorge Sheriff, PT Evaluation Information Assessment Status Discharge Diagnosis Cervicalgia Onset 11/10/23 Subjective Information Patient reports that overall he feels he is doing significantly better. Reports that pain is controlled and feels he has all of his functional motion back again. Reported Pain Level Pain Score 0: Self Report Assessment PT Clinical Summary Patient has met all functional goals for skilled therapy at this time and is suitable for D/C to [facility] at this time. Patient has no concerns for discharge at this time. Plan of Care PT Services Indicated D/C to HEP
== END 2024-01-10 08:47 | disposition home or self-care (01) ==
LOC: ANHPT 10:00
PROVIDERS: PCP Physician Assistant; Visit Provider Physician Assistant
DX: M54.2 Cervicalgia (principal)
CPT/HCPCS: 97014; 97110; 97112; 97140; 97161; 97530; G0283

== ENCOUNTER 2024-12-02 16:07 | Inpatient (IN) | payer MEDICARE, SELFPAY ==
[2024-12-02] VITALS (9 sets, daily range): BP systolic 126–143; BP diastolic 77–102; PULSE 88–134; RESP 13–16; TEMP 36.1–36.4; O2SAT 93–99; BMI 25.6
--- NOTE | ~2024-12-02 | CT_ITS ---
CLINICAL INDICATION: Right flank pain with urinary retention COMPARISON: None. TECHNIQUE: Multiple contiguous axial images of the abdomen and pelvis were performed without the admi nistration of intravenous contrast The dose-length product (DLP) was 590.10 mGy-cm. Automated exposure control and iterative reconstruction technique were employed. FINDINGS/OBSERVATIONS: Visualized lower thorax: The bilateral lung bases are clear. The heart is of normal size, without pericardial effusion. Small hiatal hernia is present. Liver: The liver demonstrates homogeneous attenuation and is not enlarged. Gallbladder and biliary system: The gallbladder is only minimally distended, and otherwise unremarkable. Pancreas: Limited evaluation of the pancreas secondary to the lack of intravenous contrast. Spleen: The spleen demonstrates homogeneous attenuation and is not enlarged. Kidneys: Bilateral hydroureteronephrosis without an obstructing stone identified. Significant perinephric inflammatory change, right greater than left with free fluid in the retroperi toneum, right greater than left Adrenal glands: Unremarkable. Gastrointestinal tract: Unremarkable. Appendix: The appendix is not definitively visualized. However, no pericecal inflammatory change is identified suggest the presence of acute appendicitis. Vasculature: Calcified atherosclerotic disease without aneurysmal dilatation. Lymph nodes: Limited evaluation without intravenous contrast Pelvic structures: Mural thickening within the posterior wall of the bladder, for which a malignancy is suspected, and f or which direct visualization is recommended. The bladder is not distended. The prostate gland is not enlarged. Body wall and musculoskeletal: Age-appropriate degenerative disease within the lumbosacral spine. IMPRESSION: Bilateral hydroureteronephrosis without an obstructing calculus identified. Abnormal mural thickening within the posterior wall of the bladder for which a malignancy is suspecte d and for which direct visualization is recommended. Reviewed, dictated and finalized at location A. IMPRESSION: Bilateral hydroureteronephrosis without an obstructing calculus identified. Abnormal mural thickening within the posterior wall of the bladder for which a malignancy is suspected and for which direct visualization is recommended.
--- NOTE | ~2024-12-02 | XR_ITS ---
CHEST RADIOGRAPH CLINICAL HISTORY: Hypoxia . COMPARISON: 12/06/2022. Reference is also made to a CT examination of the abdomen and pelvis which dem onstrated only bilateral lung bases dated 12/02/2024 at 6:30 PM TECHNIQUE: Single portable view of the chest. FINDINGS The cardiomediastinal silhouette is enlarged, an interval change. Coarse interstitial lung markings are detected bilaterally, findings suggesting chronic interstitial lung disease. Small bilateral pleural effusions are also noted. Pleural thickening within the right upper lobe. IMPRESSION: Findings which represent a significant interval change from less than 24 hours earlier, now demonstra ting coarse interstitial lung markings and small bilateral pleural effusions. Cross-sectional imaging (noncontrast enhanced CT examination of the chest) may be performed for further evaluation. Reviewed, dictated and finalized at location A. IMPRESSION: Findings which represent a significant interval change from less than 24 hours earlier, now demonstrating coarse interstitial lung markings and small bilatera l pleural effusions. Cross-sectional imaging (noncontrast enhanced CT examinati on of the chest) may be performed for further evaluation.
--- NOTE | ~2024-12-02 | XR_ITS ---
INTRAOPERATIVE FLUOROSCOPY: CLINICAL HISTORY: 69 years old Male; RIGHT RETROGRADE STENT PLACEMENT PROCEDURE COMMENTS: Limited intraoperative fluoroscopy of the abdomen and pelvis was performed. CUMULATIVE DOSE: 12 mGy FLUOROSCOPY TIME: 27 seconds FINDINGS/IMPRESSION: Please refer to operative note for further details. Reviewed, dictated and finalized at location A.
--- NOTE | ~2024-12-02 | XR_ITS ---
Portable chest x-ray Comparison: 12/03/2024 Clinical History: Shortness of breath Findings: Minimal pleural effusions are present. There is extensive groundglass and interstitial dis ease, compatible pulmonary edema and/or chronic interstitial disease. Cardiomediastinal silhouette i s stable. Bones and soft tissues are unremarkable. Impression: Diffuse pulmonary disease, suggestive of diffuse pulmonary edema and/or chronic interstitial disease. Correlate clinically. Minimal pleural effusions. Reviewed, dictated and finalized at location . Impression: Diffuse pulmonary disease, suggestive of diffuse pulmonary edema and/or chronic interstitial disease. Correlate clinically. Minimal pleural effusions.
--- NOTE | ~2024-12-02 | XR_ITS ---
XR abdomen/kub 1V Ordering provider: Ramesh Rojas MD History: . constipation/ NO BM FOR 9 DAYS . Comparison: None. FINDINGS: BOWEL: Contrast is seen in the large bowel. Fecal material is loaded in the colon. Nonobstructive bow el gas pattern. Stomach is distended with gases. ORGANOMEGALY: None. SIGNIFICANT PATHOLOGIC CALCIFICATIONS: Right double-J stent. OTHER: No free air is seen under the diaphragm. Myers's catheter seen in the bladder. IMPRESSION: NO ACUTE ABDOMINAL FINDINGS. Constipation. Reviewed, dictated and finalized at location A.
--- OUTSIDE RECORDS SUMMARY | 2024-12-02 17:37 | XMS_ITS | Clinical Summary ---
Author Organization [facility] Address [address] [place] [address] Care Team Providers Care Shooter'S Helper Name Role Phone Jazmin Abel MD Primary Care Provider [phone] David Felix MD Unavailable Allergies No known active allergies Medications INCRUSE ELLIPTA 62.5 MCG/INH AEROSOL POWDER, BREATH ACTIVATEDIndica tions:Pulmonary emphysema (CMS/HCC HHS/HCC) INHALE 1 PUFF BY MOUTH ONCE DAILY 30 each 6 09/04/2018 Active albuterol sulfate HFA (VENTOLIN HFA) 108 (90 Base) MCG/ACT inhalerIndicati ons:Pulmonary emphysema ([facility]/HCC HHS/HCC) Inhale 2 puffs into the lungs every 6 (six) hours as needed for Wheezing. 1 Inhaler 12/08/2018 Active aspirin 81 MG tablet Take 1 tablet by mouth daily. 11/08/2014 Active vitamin D2, ergocalciferol, 79632 UNITS capsule Take 50,000 Units by mouth once a week. 3 03/23/2019 Active traMADol 50 MG tablet Take 1 tablet by mouth 4 (four) times daily as needed. 06/12/2016 Active nitroglycerin 0.4 MG SL tablet DISSOLVE ONE TABLET UNDER THE TONGUE EVERY 5 MINUTES NEEDED FOR CHEST PAIN. DO NOT EXCEED A TOTAL OF 3 DOSES IN 15 MINUTES IF PAIN PERSIS 3 06/03/2019 Active Fluticasone-Guilherme meterol (AIRDUO RESPICLICK 113/14) 113-14 MCG/ACT AEROSOL POWDER, BREATH ACTIVATEDIndica tions:Centrilob ular emphysema ([facility]) Inhale 1 puff into the lungs 2 (two) times a day. 1 each 6 07/02/2019 Active Active Problems Problem Noted Date Diagnosed Date Cigarette nicotine dependence in remission 03/30 KELLI (obstructive sleep apnea) 10/25/2017 Pulmonary nodule 10/25/2017 Pulmonary emphysema ([facility]) 10/25/2017 Environmental and seasonal allergies 07/25/2017 Excessive daytime sleepiness 07/25/2017 GERD (gastroesophageal reflux disease) 7 SOB (shortness of breath) on exertion 07/25/2017 Paraseptal emphysema ([facility]) 7 Aortic atherosclerosis 07/19/2017 Precordial pain 07/19/2017 Syncope 07/19/2017 Former smoker 06/21/2017 Centrilobular emphysema ([facility]) 2016 Heart murmur 06/21/2017 Marijuana use 06/21/2017 Abnormal findings on diagnos tic imaging of other specified body structures 2017 Systolic murmur 06/12/2017 Unintentional weight loss 06/12/2017 Dupuytren's contracture 06/12/2016 Lower back pain 06/12/2016 Neck strain 06/12/2016 Screening for HIV (human immunodeficiency virus) 01/14/2015 Rib injury 01/14/2015 Osteoporosis 11/23/2014 Hyperlipidemia 11/08/2014 Right shoulder pain 10/08/2014 Fracture of humerus 10/14/2013 Atrial fibrillation Overview (09/04/2018): Description: CHADS2 = 0 Dyslipidemia Resolved Problems Problem Noted Date Diagnosed Date Resolved Date Influenza vaccine needed 04/12/201606/2020 Encounter for preventive health examination 09/09/2014 04/22/2020 Family History Medical History Relation Comments Heart Attack Brother Stent Cardiac Brother Relation Status Comments Brother Alive Father (Age 62) Mother (Age 47) Social History Tobacco Use Types Packs/Day Years Used Date Smoking Tobacco: Former Cigarettes 1 45 0 04/1972 - 04/2017 Smokeless Tobacco: Never Alcohol Use Standard Drinks/Week Comments Yes 0 (1 standard drink = 0.6 oz pur e alcohol) AUDIT-C Answer Date Recorded Frequency of Alcohol Consumption Monthly or less 07/02/2019 Average Number of Drinks Not on file 019 Frequency of Binge Drinking Not on file 06/13 Sex and Gender Information Value Date Recorded Sex Assigned at Not on file Legal Sex Male 7:56 PM CDT Gender Identity Not on file Sexual Orientation Not on file Occupation Industry Job Start Date Job End Date Not on file Not on file Not on file Not on file Last Filed Vital Signs Vital Sign Reading Time Taken Comments Blood Pressure 110/78 07/13/2019 9:21 AM SMALL ENGINE MECHANIC Pulse 84 07/13/2019 9:21 AM SMALL ENGINE MECHANIC Temperature 36.6 C (97.9 F) 07/02/2019 8:42 AM SMALL ENGINE MECHANIC Respiratory Rate 20 07/02/2019 8:42 AM SMALL ENGINE MECHANIC Oxygen Saturation 98% 07/02/2019 8:42 AM SMALL ENGINE MECHANIC ra Inhaled Oxygen Concentration - - Weight 83 kg (183 lb) 07/13/2019 9:21 AM SMALL ENGINE MECHANIC Height 175.3 cm (5' 9 ) 07/13/2019 9:21 AM SMALL ENGINE MECHANIC Body Mass Index 27.02 07/13/2019 9:21 AM SMALL ENGINE MECHANIC Plan of Treatment Health Maintenance Due Date Last Done Comments ASCVD Statin 1955 Colorectal Cancer Screening Colonoscopy (10 Years) 1955 Pneumococcal Vaccine: 50+ Years (1 of 2 - PCV) 1976 Zoster Vaccines (1 of 2) 2007 RSV Immunization or 60+ Years (1 - Risk 60-74 years 1-dose series) 2017 ASCVD LDL 08/07/2018 08/07/2017, 03/13, 01/14/2015, Additional history exists Annual Medicare Wellness Visit 2022 COVID-19 Vaccine (3 2023- season) 2024 07/05/2021, 06/14/2021 DTaP, Tdap and Td Vaccines (2 - Td or Tdap) 10/08/2024 10/08/2014 Hepatitis C Completed 10/08/2014 Meningococcal B Vaccine Aged Out No l onger eligible based on patient's age to complete this topic Meningococcal Vaccine Aged Out No char ehsan eligible based on patient's age to complete this topic RSV Immunizations Under 20 Months Aged Out No longer eligible based on patient's age to complete this topic Procedures Procedure Name Priority Date/Time Associated Diagnosis Comments LIPID PANEL Routine 08/07/2017 9:50 AM SMALL ENGINE MECHANIC Chest pain SOB (shortness of breath) HEPATITIS A,B,& C Routine 10/08/2014 12: 10 PM SMALL ENGINE MECHANIC from Last 3 Months or Most Recently Relevant to Health Maintenance Results * (ABNORMAL) LIPID PANEL (08/07/2017 9:50 AM SMALL ENGINE MECHANIC) CHOLESTEROL 185 <200 MG/DL 08/07/2017 11:00 AM [facility] TRIGLYCERIDES 66 <150 MG/DL 08/07/2017 11:00 AM [facility] HDL 47 >40.0 MG/DL 08/07/2017 11:00 AM [facility] LDL (CALCULATED) 124.8(H) <100 MG/L 08/07/20 17 11:00 AM [facility] NON HDL CHOLESTEROL 138(H) <130 MG/DL 08/07/2017 11:00 AM [facility] CHOL/HDL RATIO 3.9 0.0 - 4.5 08/07/2017 11:00 AM [facility] VLDL CALCULATION 13 5 - 55 MG/DL 08/07/2017 11:00 AM [facility] LIPID INTERPRETATION 08/07/2017 11:00 AM [facility] Comment: [facility] CONCENSUS REPORT RECOMMENDATIONS: ADULT CHILD LOW RISK: CHOLESTEROL <200 <170 TRIGLYCERIDE <150 --- HDL >=60 --- LDL <100 <110 BORDERLINE: CHOLESTEROL 200-239 170-199 TRIGLYCERIDE 150-199 --- HDL 40-59 --- LDL 100-159 110-129 HIGH RISK: CHOLESTEROL >=240 >=200 TRIGLYCERIDE >=200 --- HDL <40 --- LDL >=160 >=130 08/07/2017 9:50 AM SMALL ENGINE MECHANIC Mikel Shepard MD LABORATORY Final Result [facility] [address] [place] [address], * HEPATITIS A,B,& C (10/08/2014 12:10 PM SMALL ENGINE MECHANIC) HAV IGM NON-REACTI VE NR [facility] TO EPIC CONVERSION HEPATITIS B SURFACE AG NON-REACTI VE NR [facility] TO EPIC CONVERSION HEP B SURFACE AB NON-REACTI VE [facility] TO EPIC CONVERSION HEP B CORE TOTAL AB NON-REACTI VE NR [facility] TO EPIC CONVERSION HEPATITIS C AB NON-REACTI VE NR [facility] TO EPIC CONVERSION Comment: Result Comment: TESTING PERFORMED AT [facility], A MEMBER OF THE [facility]. 10/08/2014 12:1 0 PM SMALL ENGINE MECHANIC 10/08/2014 12:10 PM SMALL ENGINE MECHANIC Narrative [facility] TO EPIC CONVERSION - 10/11/2014 5:34 PM SMALL ENGINE MECHANIC 13Oct2014 7:23AM by Donovan Saba: Mr Cho, Attached are your recent lab reports. They all look pretty good. NO anemia. Normal liver, kidney, thyroid functions. No diabetes. Hepatitis screen was normal. Your cholesterol is a little high but not to the point where we need to use medication. Look forward to our next visit where we can discuss these labs a bit more if you want. best regards, Dr Saba Result Communication: Mail Results to Patient Donovan Saba MD LABORATORY Final Result [facility] TO EPIC CONVERSION from Last 3 Months or Most Recently Relevant to Health Maintenance Insurance MEDICARE Care Teams Shooter'S Helper Relationship Specialty Start Date End Date Jazmin Abel MD [facility] [address] [place] [address] PCP - General FAMILY PRACTICE 03/30/19 David Felix MD [facility] [address] [place] [address] Riky Driver Service Technician INTERVENTIONAL CARDIOLOGY 06/17/19
--- OUTSIDE RECORDS SUMMARY | 2024-12-02 17:37 | XMS_ITS | Encounter Summary ---
Author Organization [facility] Facility Care Team Providers Care Solutions Sales Consultant Name Role Phone Jazmin Abel MD Primary Care Provider [phone] Raya Lozoya Primary Care Provider [phone] Encounter Details Date Type Department Care Team (Latest Contact Info) Description 07/28/2017 Orders Only [facility] CLINCONV ProviderCameron MD [address] [place] [address] Social History Tobacco Use Types Packs/Day Years Used Date Smoking Tobacco: Never Assessed Sex and Gender Information Value Date Recorded Sex Assigned at Not on file Legal Sex Male 9:52 AM SALESFORCE TRAINER Gender Identity Not on file Sexual Orientation Not on file documented as of this encounter Plan of Treatment Not on file documented as of this encounter Procedures Procedure Name Priority Date/Time Associated Diagnosis Comments CARDIOLOGY REPORT 07/01/2018 12: 00 AM SALESFORCE TRAINER documented in this encounter Results * CARDIOLOGY REPORT (07/01/2018 12:00 AM SALESFORCE TRAINER) Anatomical Region Laterality Modality Other Narrative 07/01/2018 12:00 AM SALESFORCE TRAINER Ordered by an unspecified provider. Historical Provider [facility] PHIL RIZVI Final Result documented in this encounter Visit Diagnoses Not on filedocumented in this encounter Care Teams Solutions Sales Consultant Relationship Specialty Start Date End Date Jazmin Abel MD PCP - General Family Medicine 06/12/18 01/08/22 Raya Lozoya PA [address] [place] [address] PCP - General Physician Plan Checker 01/09/22 documented as of this encounter
--- OUTSIDE RECORDS SUMMARY | 2024-12-02 17:37 | XMS_ITS | Encounter Summary ---
Author Organization [facility] Address [address] [place] [address] Care Team Providers Care Amusement Ride Inspector Name Role Phone Mikel Shepard MD Unavailable [phone] Jazmin Abel MD Primary Care Provider [phone] David Felix MD Unavailable Encounter Details Date Type Department Care Team (Late st Contact Info) Description 07/19/2017 Abstract [facility] at [address] [address] Mallory Jackson MA Social History Tobacco Use Types Packs/Day Years Used Date Smoking Tobacco: Former Cigarettes Q uit: 04/2017 Smokeless Tobacco: Never Alcohol Use Standard Drinks/Week Comments No 0 (1 standard drink = 0.6 oz pur e alcohol) Sex and Gender Information Value Date Recorded Sex Assigned at Not on file Legal Sex Male 7:56 PM CDT Gender Identity Not on file Sexual Orientation Not on file Occupation Industry Job Start Date Job End Date Not on file Not on file Not on file Not on file documented as of this encounter Plan of Treatment Not on file documented as of this encounter Procedures Procedure Name Priority Date/Time Associated Diagnosis Comments CBC (OUTSIDE LAB) Routine 04/05/2016 BASIC METABOLIC PANEL Routine 04/05/2016 LIPID PANEL Routine 04/04/2016 documented in this encounter Results * BASIC METABOLIC PANEL (04/05/2016) SODIUM S/P/B 134 POTASSIUM S/P/B 4.7 CO2 24 CHLORIDE S/P/B 101 GLUCOSE 73 mg/dL CALCIUM S/P/B 9.1 BUN 22 CREATININE S/P/B 1.1 0.7 - 1.3 04/05/2016 [facility] LABORATORY Final Result * CBC (OUTSIDE LAB) (04/05/2016) WBC 6.7 HGB 14.6 HCT 43.1 PLT 188 04/05/2016 us [facility] Abstract LAB-OUTSIDE/ABSTRACTED Final Result * LIPID PANEL (04/04/2016) CHOLESTEROL 165 HDL 43 TRIGLYCERIDES 49 LDL (CALCULATED) 112 04/04/2016 us Doc [facility] LABORATORY Final Result documented in this encounter Visit Diagnoses Not on filedocumented in this encounter Care Teams Amusement Ride Inspector Relationship Specialty Start Date End Date Jazmin Abel MD [facility] [address] [place] [address] PCP - General FAMILY PRACTICE 03/30/19 Mikel Shepard MD [place] Desktop Manager CARDIOVASCULAR DISEASE 06/18/17 04/01/18 David Felix MD [facility] [address] [place] [address] [place] Desktop Manager INTERVENTIONAL CARDIOLOGY 06/17/19 documented as of this encounter
--- OUTSIDE RECORDS SUMMARY | 2024-12-02 17:37 | XMS_ITS | Encounter Summary ---
Author Organization [facility] Facility Care Team Providers Care Card Setter Name Role Phone Jazmin Abel MD Primary Care Provider [phone] Raya Lozoya Primary Care Provider [phone] Encounter Details Date Type Department Care Team (Latest Contact Info) Description 04/04/2016 Orders Only [facility] CLINCONV ProviderCameron MD [address] [place] [address] Social History Tobacco Use Types Packs/Day Years Used Date Smoking Tobacco: Never Assessed Sex and Gender Information Value Date Recorded Sex Assigned at Not on file Legal Sex Male 9:52 AM HOME PERFORMANCE CONSULTANT Gender Identity Not on file Sexual Orientation Not on file documented as of this encounter Plan of Treatment Not on file documented as of this encounter Procedures Procedure Name Priority Date/Time Associated Diagnosis Comments CARDIOLOGY REPORT 04/05/2016 12: 00 AM CDT CARDIOLOGY REPORT 04/05/2016 12: 00 AM CDT documented in this encounter Results * CARDIOLOGY REPORT (04/05/2016 12:00 AM CDT) Anatomical Region Laterality Modality Other Narrative 04/05/2016 12:00 AM CDT Ordered by an unspecified provider. Historical Provider [facility] PROCE DURNAZARIO Final Result * CARDIOLOGY REPORT (04/05/2016 12:00 AM CDT) Anatomical Region Laterality Modality Other Narrative 04/05/2016 12:00 AM CDT Ordered by an unspecified provider. Historical Provider [facility] CARDIAC SERVICES PROCE DURES Final Result documented in this encounter Visit Diagnoses Not on filedocumented in this encounter Care Teams Card Setter Relationship Specialty Start Date End Date Jazmin Abel MD PCP - General Family Medicine 06/12/18 01/08/22 Raya Lozoya PA [address] [place] [id number] PCP - General Physician Insurance Verify Rep 01/09/22 documented as of this encounter
--- OUTSIDE RECORDS SUMMARY | 2024-12-02 17:37 | XMS_ITS | Data Portability ---
Author Organization [facility] Address [address] [place] [address] Care Team Providers Care Chairman And Ceo Name Role Phone YEVGENIY LOO Primary Care Provider Assessment Encounter Date Assessment Date Assessment LastModified by Organization Details LastModified Time 01/08/2024 01/08/2024 Pt will make nurse visit for lab results. [email or web address] Not available 01/08/2024 13:13:21 Plan of Treatment Reminders Order Date Submit Date Provider Last Modified By Organization Details Last Modified Time Details Appointments ANY 15 2024 01:00P STELLA MONROE Not available Not available Not available Lab urinalysi s, dipstick 2024 025 VIJAY In-Office Order, Internal Use Only DO Not Attach Compendium DO Not Attach Compendium, Do Not Delete/merge, [id number] 10/06/2024 10:45:54 urinalysi s, complete 2024 025 VIJAY [facility], [address], [place], [address], 10/09/2024 08:29:50 CMP, serum or plasma 2023 024 VIJAY [facility], [address], [place], [address], 03/04/2024 08:29:45 TSH + free T4, serum 2023 024 VIJAY [facility], [address], [place], [address], 03/04/2024 08:29:44 HbA1c (hemoglob in A1c), blood 2023 024 [facility], [address], [place], [address], 03/04/2024 08:29:45 lipid panel, serum 2023 024 [facility], [address], [place], [address], 03/04/2024 08:42:52 CBC w/ auto diff 2023 024 [facility], [address], [place], [address], 03/04/2024 08:29:46 lipid panel, serum 2023 024 [facility], [address], [place], [address], 03/04/2024 08:29:44 vitamin D, 25-hydrox y, total, serum 2023 024 [facility], [address], [place], [address], 03/04/2024 08:29:46 Referral physical therapist referral 2023 024 [facility] (Outpatient [facility] Therapy), [address], [place], [address], 12/09/2023 14:28:21 Procedures None recorded. Surgeries None recorded. Imaging None recorded. Medication Orders fluticaso ne propionat e 115 mcg-salme terol 21 mcg/actua tion HFA inhaler 2024 025 [facility], [address] [facility], [place], [address], 10/06/2024 10:03:14 tamsulosi n 0.4 mg capsule 2024 025 [facility], [address] [place], [address], 10/06/2024 09:51:10 albuterol sulfate HFA 90 mcg/actua tion aerosol inhaler 2023 024 [facility], [address] [place], [address], 01/08/2024 09:22:35 atorvasta tin 40 mg tablet 2023 024 [facility], [address] [place], [address], 03/12/2024 14:19:05 Patient TargetsNo targets recorded. Patient InstructionsNo instructions recorded. Reason for Referral Physical Therapist Referral for Neck pain CT C spine normal, fall on asphalt 10/3123, c/o neck pain and stiffness Referring Physician: Raya Lozoya, Family Medicine, Encounter Date: 11/14/2023 Results Created Date Observation Date Name Description Value Unit Range Abnormal Flag Note LastModifiedBy Organization Detail LastModifiedTime 03/03/2003/04/2024 TSH+F REE T4 TSH 1.710 uIU/m L 0.450- 4.500 Not Available [facility] ([facility]) [address] [place], [address], 03/04/2024 08:29:44 03/03/2003/04/2024 TSH+F REE T4 T4,free(dire ct) 1.19 NG/dL 0.82-1 .77 Not Available [facility] ([facility]) [address] [place], [address], 03/04/2024 08:29:44 03/03/2003/04/2024 LIPID PANEL WITH LDL/H DL RATIO cholesterol, total 164 mg/dL 100-19 9 Not Available [facility] ([facility]) [address] [place], [address], 03/04/2024 08:29:44 03/03/20 24 03/04/2024 LIPID PANEL WITH LDL/H DL RATIO triglyceride s 64 mg/dL 0-149 Not Available [facility] ([facility]) [address] [place], [address], 03/04/2024 08:29:44 03/03/20 24 03/04/2024 LIPID PANEL WITH LDL/H DL RATIO HDL cholesterol 38 mg/dL >39 below low normal Not Available [facility] ([facility]) [address] [place], [address], 03/04/2024 08:29:44 03/03/20 24 03/04/2024 LIPID PANEL WITH LDL/H DL RATIO VLDL cholesterol carla 13 mg/dL 5-40 Not Available [facility] ([facility]) [address] [place], [address], 03/04/2024 08:29:44 03/03/20 24 03/04/2024 LIPID PANEL WITH LDL/H DL RATIO LDL chol calc ([facility]) 113 mg/dL 0-99 above high normal Not Available [facility] ([facility]) [address] [place], [address], 03/04/2024 08:29:44 03/03/2003/04/2024 LIPID PANEL WITH LDL/H DL RATIO LDL/HDL ratio 3.0 ratio 0.0-3. 6 LDL/H DL Ratio Men Women 1/2 Avg.R isk 1.0 1.5 Avg.R isk 3.6 3.2 2X Avg.R isk 6.2 5.0 3X Avg.R isk 8.0 6.1 Not Available [facility] ([facility]) [address] [place], [address], 03/04/2024 08:29:44 03/03/20 24 03/04/2024 COMP. METAB OLIC PANEL (14) glucose 91 mg/dL 70-99 Not Available [facility] ([facility]) [address], [place], [address], 03/04/2024 08:29:45 03/03/20 24 03/04/2024 COMP. METAB OLIC PANEL (14) BUN 18 mg/dL 8-27 Not Available [facility] ([facility]) [address], [place], [address], 03/04/2024 08:29:45 03/03/20 24 03/04/2024 COMP. METAB OLIC PANEL (14) creatinine 1.26 mg/dL 0.76-1 .27 Not Available [facility] ([facility]) [address] [place], [address], 03/04/2024 08:29:45 03/03/20 24 03/04/2024 COMP. METAB OLIC PANEL (14) eGFR 63 mL/mi n/1.7 3 >59 Not Available [facility] ([facility]) [address], [place], [address], 03/04/2024 08:29:45 03/03/20 24 03/04/2024 COMP. METAB OLIC PANEL (14) BUN/creatini ne ratio 14 10-24 Not Available [facility] ([facility]) [address] [facility] [place], [address], 03/04/2024 08:29:45 03/03/20 24 03/04/2024 COMP. METAB OLIC PANEL (14) sodium 137 mmol/ L 134-14 4 Not Available [facility] ([facility]) [address] [facility] [place], [address], 03/04/2024 08:29:45 03/03/20 24 03/04/2024 COMP. METAB OLIC PANEL (14) potassium 4.6 mmol/ L 3.5-5. 2 Not Available [facility] ([facility]) [address] [facility] [place], [address], 03/04/2024 08:29:45 03/03/20 24 03/04/2024 COMP. METAB OLIC PANEL (14) chloride 105 mmol/ L 96-106 Not Available [facility] ([facility]) [address] [place], [address], 03/04/2024 08:29:45 03/03/20 24 03/04/2024 COMP. METAB OLIC PANEL (14) carbon dioxide, total 18 mmol/ L 20-29 below low normal Not Available [facility] ([facility]) [address] [facility] [place], [address], 03/04/2024 08:29:45 03/03/20 24 03/04/2024 COMP. METAB OLIC PANEL (14) calcium 8.9 mg/dL 8.6-10 .2 Not Available [facility] ([facility]) [address] [facility] [place], [address], 03/04/2024 08:29:45 03/03/20 24 03/04/2024 COMP. METAB OLIC PANEL (14) protein, total 6.8 g/dL 6.0-8. 5 Not Available [facility] ([facility]) [address] [facility] [place], [address], 03/04/2024 08:29:45 03/03/20 24 03/04/2024 COMP. METAB OLIC PANEL (14) albumin 3.6 g/dL 3.9-4. 9 below low normal Not Available [facility] ([facility]) [address] [facility] [place], [address], 03/04/2024 08:29:45 03/03/20 24 03/04/2024 COMP. METAB OLIC PANEL (14) globulin, total 3.2 g/dL 1.5-4. 5 Not Available [facility] ([facility]) [address] [facility] [place], [address], 03/04/2024 08:29:45 03/03/2003/04/2024 COMP. METAB OLIC PANEL (14) bilirubin, total 0.5 mg/dL 0.0-1. 2 Not Available [facility] ([facility]) [address] [facility], [place], [address], 03/04/2024 08:29:45 03/03/2003/04/2024 COMP. METAB OLIC PANEL (14) alkaline phosphatase 105 IU/L 44-121 Not Available [facility] ([facility]) [address] [facility], [place], [address], 03/04/2024 08:29:45 03/03/2003/04/2024 COMP. METAB OLIC PANEL (14) AST (SGOT) 16 IU/L 0-40 Not Available [facility] ([facility]) [address] [facility], [place], [address], 03/04/2024 08:29:45 03/03/2003/04/2024 COMP. METAB OLIC PANEL (14) ALT (SGPT) 12 IU/L 0-44 Not Available [facility] ([facility]) [address] [facility], [place], [address], 03/04/2024 08:29:45 03/03/2003/04/2024 HEMOG LOBIN A1C hemoglobin A1C 5.6 % 4.8-5. 6 Predi abete s: 5.7 - 6.4 Diabe lina: >6.4 Glyce lyssa contr ol for adult s with diabe lina: <7.0 Not Available [facility] ([facility]) [address] [facility], [place], [address], 03/04/2024 08:29:45 03/03/2003/04/2024 CBC WITH DIFFE RENTI AL/PL ATELE T WBC 7.1 x10e3 /uL 3.4-10 .8 Not Available [facility] ([facility]) [address] [place], [address], 03/04/2024 08:29:46 03/03/2003/04/2024 CBC WITH DIFFE RENTI AL/PL ATELE T RBC 4.40 x10e6 /uL 4.14-5 .80 Not Available [facility] ([facility]) [address] [place], [address], 03/04/2024 08:29:46 03/03/2003/04/2024 CBC WITH DIFFE RENTI AL/PL ATELE T hemoglobin 15.2 g/dL 13.0-1 7.7 Not Available [facility] ([facility]) [address] [place], [address], 03/04/2024 08:29:46 03/03/2003/04/2024 CBC WITH DIFFE RENTI AL/PL ATELE T hematocrit 45.0 % 37.5-5 1.0 Not Available [facility] ([facility]) [address] [place], [address], 03/04/2024 08:29:46 03/03/2003/04/2024 CBC WITH DIFFE RENTI AL/PL ATELE T MCV 102 fL 79-97 above high normal Not Available [facility] ([facility]) [address] [place], [address], 03/04/2024 08:29:46 03/03/2003/04/2024 CBC WITH DIFFE RENTI AL/PL ATELE T MCH 34.5 pg 26.6-3 3.0 above high normal Not Available [facility] ([facility]) [address] [place], [address], 03/04/2024 08:29:46 03/03/2003/04/2024 CBC WITH DIFFE RENTI AL/PL ATELE T MCHC 33.8 g/dL 31.5-3 5.7 Not Available [facility] ([facility]) [address] [place], [address], 03/04/2024 08:29:46 03/03/2003/04/2024 CBC WITH DIFFE RENTI AL/PL ATELE T RDW 12.2 % 11.6-1 5.4 Not Available [facility] ([facility]) [address] [facility], [place], [address], 03/04/2024 08:29:46 03/03/2003/04/2024 CBC WITH DIFFE RENTI AL/PL ATELE T platelets 193 x10e3 /uL 150-45 0 Not Available [facility] ([facility]) [address] [facility], [place], [address], 03/04/2024 08:29:46 03/03/2003/04/2024 CBC WITH DIFFE RENTI AL/PL ATELE T neutrophils 65 % notest ab. Not Available [facility] ([facility]) [address] [facility], [place], [address], 03/04/2024 08:29:46 03/03/2003/04/2024 CBC WITH DIFFE RENTI AL/PL ATELE T lymphs 21 % notest ab. Not Available [facility] ([facility]) [address] [facility], [place], [address], 03/04/2024 08:29:46 03/03/2003/04/2024 CBC WITH DIFFE RENTI AL/PL ATELE T monocytes 11 % notest ab. Not Available [facility] ([facility]) [address] [facility], [place], [address], 03/04/2024 08:29:46 03/03/20 24 03/04/2024 CBC WITH DIFFE RENTI AL/PL ATELE T eos 3 % notest ab. Not Available [facility] ([facility]) [address] [facility], [place], [address], 03/04/2024 08:29:46 03/03/2003/04/2024 CBC WITH DIFFE RENTI AL/PL ATELE T basos 0 % notest ab. Not Available [facility] ([facility]) [address] [place], [address], 03/04/2024 08:29:46 03/03/20 24 03/04/2024 CBC WITH DIFFE RENTI AL/PL ATELE T neutrophils (absolute) 4.5 x10e3 /uL 1.4-7. 0 Not Available [facility] ([facility]) [address] [place], [address], 03/04/2024 08:29:46 03/03/2003/04/2024 CBC WITH DIFFE RENTI AL/PL ATELE T lymphs (absolute) 1.5 x10e3 /uL 0.7-3. 1 Not Available [facility] ([facility]) [address] [place], [address], 03/04/2024 08:29:46 03/03/20 24 03/04/2024 CBC WITH DIFFE RENTI AL/PL ATELE T monocytes(ab solute) 0.8 x10e3 /uL 0.1-0. 9 Not Available [facility] ([facility]) [address] [place], [address], 03/04/2024 08:29:46 03/03/2003/04/2024 CBC WITH DIFFE RENTI AL/PL ATELE T eos (absolute) 0.2 x10e3 /uL 0.0-0. 4 Not Available [facility] ([facility]) [address] [place], [address], 03/04/2024 08:29:46 03/03/20 24 03/04/2024 CBC WITH DIFFE RENTI AL/PL ATELE T baso (absolute) 0.0 x10e3 /uL 0.0-0. 2 Not Available [facility] ([facility]) [address] [place], [address], 03/04/2024 08:29:46 03/03/20 24 03/04/2024 CBC WITH DIFFE RENTI AL/PL ATELE T immature granulocytes 0 % notest ab. Not Available [facility] ([facility]) [address] [facility], [place], [address], 03/04/2024 08:29:46 03/03/20 24 03/04/2024 CBC WITH DIFFE RENTI AL/PL ATELE T immature grans (abs) 0.0 x10e3 /uL 0.0-0. 1 Not Available [facility] ([facility]) [address] [facility], [place], [address], 03/04/2024 08:29:46 03/03/20 24 03/04/2024 VITAM IN D, 25-HY DROXY vitamin D, 25-hydroxy 79.3 NG/mL 30.0-1 00.0 Vitam in D defic iency has been defin ed by the Insti tute of Medic ine and an Endoc rine Socie ty pract ice guide line as a level of serum 25-OH vitam in D less than 20 ng/mL (1,2) . The Endoc rine Socie ty went on to furth er defin e vitam in D insuf ficie ncy as a level betwe en 21 and 29 ng/mL (2). 1. IOM (Inst itute of Medic ine). 2009. Dieta ry refer ence ctae es for calci um and D. Jess tompkins [place]: The Natio nal [facility] Press . 2. Dilshad fountain [place], Luis bauman [place], Verna off-F errar i CASTANEDA, et al. Evalu ation , treat ment, and preve ntion of vitam in D defic iency : an Endoc rine Socie ty clini carla pract ice guide line. JCEM. 2010; 96(7) :1911 -30. Not Available [facility] ([facility]) [address] [facility], [place], [address], 03/04/2024 08:29:46 10/06/19 25 10/09/2024 MICRO SCOPI C EXAMI NATIO N WBC >30 /hpf 0-5 abnormal Not Available [facility] ([facility]) [address] [facility], [place], [address], 10/09/2024 08:29:50 10/06/19 25 10/09/2024 MICRO SCOPI C EXAMI NATIO N RBC None seen /hpf 0-2 Not Available [facility] ([facility]) [address] [facility], [place], [address], 10/09/2024 08:29:50 10/06/19 25 10/09/2024 MICRO SCOPI C EXAMI NATIO N epithelial cells (non renal) 0-10 /hpf 0-10 Not Available [facility] ([facility]) [address] [facility], [place], [address], 10/09/2024 08:29:50 10/06/19 25 10/09/2024 MICRO SCOPI C EXAMI NATIO N casts None seen /lpf nonese en Not Available [facility] ([facility]) [address] [place], [address], 10/09/2024 08:29:50 10/06/19 25 10/09/2024 MICRO SCOPI C EXAMI NATIO N mucus threads Presen t notest ab. Not Available [facility] ([facility]) [address] [place], [address], 10/09/2024 08:29:50 10/06/19 25 10/09/2024 MICRO SCOPI C EXAMI NATIO N bacteria Many nonese en/few abnormal Not Available [facility] ([facility]) [address] [place], [address], 10/09/2024 08:29:50 10/06/19 25 10/09/2024 URINA LYSIS , COMPL ETE specific gravity 1.014 1.005- 1.030 Resul ts from sub-o ptima l speci men perfo rmed at the [facility]. Not Available [facility] ([facility]) [address] [place], [address], 10/09/2024 08:29:50 10/06/19 25 10/09/2024 URINA LYSIS , COMPL ETE pH 5.5 5.0-7. 5 Not Available [facility] ([facility]) [address] [place], [address], 10/09/2024 08:29:50 10/06/19 25 10/09/2024 URINA LYSIS , COMPL ETE urine-color YELLOW yellow Not Available [facility] ([facility]) [address] [place], [address], 10/09/2024 08:29:50 10/06/19 25 10/09/2024 URINA LYSIS , COMPL ETE appearance CLEAR clear Not Available [facility] ([facility]) [address] [place], [address], 10/09/2024 08:29:50 10/06/19 25 10/09/2024 URINA LYSIS , COMPL ETE WBC esterase 2+ negati ve abnormal Not Available [facility] ([facility]) [address] [place], [address], 10/09/2024 08:29:50 10/06/19 25 10/09/2024 URINA LYSIS , COMPL ETE protein NEGATI VE negati ve/tra ce Not Available [facility] ([facility]) [address] [place], [address], 10/09/2024 08:29:50 10/06/19 25 10/09/2024 URINA LYSIS , COMPL ETE glucose NEGATI VE negati ve Not Available [facility] ([facility]) [address] [place], [address], 10/09/2024 08:29:50 10/06/19 25 10/09/2024 URINA LYSIS , COMPL ETE ketones NEGATI VE negati ve Not Available [facility] ([facility]) [address] [place], [address], 10/09/2024 08:29:50 10/06/19 25 10/09/2024 URINA LYSIS , COMPL ETE occult blood NEGATI VE negati ve Not Available [facility] ([facility]) [address] [place], [address], 10/09/2024 08:29:50 10/06/19 25 10/09/2024 URINA LYSIS , COMPL ETE bilirubin NEGATI VE negati ve Not Available [facility] ([facility]) [address] [place], [address], 10/09/2024 08:29:50 10/06/19 25 10/09/2024 URINA LYSIS , COMPL ETE urobilinogen ,semi-qn 0.2 mg/dL 0.2-1. 0 Not Available [facility] ([facility]) [address] [place], [address], 10/09/2024 08:29:50 10/06/19 25 10/09/2024 URINA LYSIS , COMPL ETE nitrite, urine NEGATI VE negati ve Not Available [facility] ([facility]) [address] [place], [address], 10/09/2024 08:29:50 10/06/19 25 10/09/2024 URINA LYSIS , COMPL ETE microscopic examination SEE BELOW: Micro scopi c was indic ated and was perfo rmed. Not Available [facility] ([facility]) [address] [place], [address], 10/09/2024 08:29:50 10/06/19 25 10/11/2024 URINE CULTU RE, ROUTI NE urine culture, routine Final report Not Available [facility] ([facility]) [address] [facility], [place], [address], 10/11/2024 15:08:49 10/06/19 25 10/11/2024 URINE CULTU RE, ROUTI NE result 1 Commen t Mixed uroge nital jose 25,00 0-50, 000 colon y formi ng units per mL Not Available [facility] ([facility]) [address] [facility], [place], [address], 10/11/2024 15:08:49 10/06/19 25 10/06/2024 urina lysis , dipst ick Leukocytes Modera te Not Available In-Office Order Internal Use Only DO Not Attach Compendium DO Not Attach Compendium, Do Not Delete/merge, 10/06/2024 09:56:07 10/06/1910/06/2024 urina lysis , dipst ick Nitrite negati ve Not Available In-Office Order Internal Use Only DO Not Attach Compendium DO Not Attach Compendium, Do Not Delete/merge, 10/06/2024 09:56:07 10/06/1910/06/2024 urina lysis , dipst ick Urobilinogen .2 Not Available In-Of fice Order Internal Use Only DO Not Attach Compendium DO Not Attach Compendium, Do Not Delete/merge, 10/06/2024 09:56:07 10/06/1910/06/2024 urina lysis , dipst ick Protein Negati ve Not Available In-Office Order Internal Use Only DO Not Attach Compendium DO Not Attach Compendium, Do Not Delete/merge, 10/06/2024 09:56:07 10/06/1910/06/2024 urina lysis , dipst ick pH 5.0 Not Available In-Office Order Internal Use Only DO Not Attach Compendium DO Not Attach Compendium, Do Not Delete/merge, 10/06/2024 09:56:07 10/06/1910/06/2024 urina lysis , dipst ick Blood Non-He molyze d: Modera te Not Available In-Office Order Internal Use Only DO Not Attach Compendium DO Not Attach Compendium, Do Not Delete/merge, 10/06/2024 09:56:07 10/06/1910/06/2024 urina lysis , dipst ick Specific [place] 1.020 Not Available In-Off ice Order Internal Use Only DO Not Attach Compendium DO Not Attach Compendium, Do Not Delete/merge, 10/06/2024 09:56:07 10/06/1910/06/2024 urina lysis , dipst ick Ketone Negati ve Not Available In-Office Order Internal Use Only DO Not Attach Compendium DO Not Attach Compendium, Do Not Delete/merge, 10/06/2024 09:56:07 10/06/1910/06/2024 urina lysis , dipst ick Bilirubin Negati ve Not Available In-Office Order Internal Use Only DO Not Attach Compendium DO Not Attach Compendium, Do Not Delete/merge, 10/06/2024 09:56:07 10/06/1910/06/2024 urina lysis , dipst ick Glucose Negati ve Not Available In-Office Order Internal Use Only DO Not Attach Compendium DO Not Attach Compendium, Do Not Delete/merge, 10/06/2024 09:56:07 10/06/1910/06/2024 urina lysis , dipst ick Appearance Clear Not Available In-Offi ce Order Internal Use Only DO Not Attach Compendium DO Not Attach Compendium, Do Not Delete/merge, 10/06/2024 09:56:07 10/06/1910/06/2024 urina lysis , dipst ick Color Pale Yellow Not Available In-Office Order Internal Use Only DO Not Attach Compendium DO Not Attach Compendium, Do Not Delete/merge, 10/06/2024 09:56:07 11/11/1911/10/2023 CT, brain , w/o contr ast No observ ation record ed. [facility] [address], [place], [address], 11/12/2023 08:32:46 11/14/19 24 11/10/2023 lab* No observ ation record ed. [address] [address], [place], [address], 11/14/2023 16:51:45 11/14/19 24 11/10/2023 lab* No observ ation record ed. [email or web address] [address], [place], [address], 11/14/2023 16:51:37 11/14/19 24 11/10/2023 lab* No observ ation record ed. [address] [address], [place], [address], 11/14/2023 16:51:16 11/15/19 24 11/10/2023 CT, chest , w/o contr ast No observ ation record ed. [address] [address], [place], [address], 11/18/2023 19:03:33 Result Notes None recorded. Problems Name Problem SNOMED Code Status Onset Date Resolution Date Notes Provider Name and Address Organization Details Recorded Time Pulmonary emphysema 03109502 Active 2021 STELLA CABRERA Attn: Onofre singletary,[address] [facility], [place], [address], [facility] 3 09:39:54 Chronic atrial fibrillation 228322477 Active 2021 STELLA CABRERA Attn: Onofre singletary,[address] [facility], [place], [address], [place] - [facility] 3 09:39:51 Osteoporosis 07627776 Active 2021 STELLA CABRERA Attn: Onofre singletary,[address] [facility], [place], [address], [facility] 3 09:39:53 Retention of urine 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 Please review this document and add these problems to the patient's chart manually as needed. Problem Notes None recorded. Procedures Surgical History None recorded. Imaging Results Imaging Date Name Status LastModified by Organiz [facility] Details LastModified Time 11/10/2023 CT, brain, w/o contrast completed [address], [address], 11/12/2023 08:32:46 11/10/2023 lab* completed [email or web address] [place] [address], [address], 11/14/2023 16:51:45 11/10/2023 [facility] [address] [place] [address], [address], 11/14/2023 16:51:37 11/10/2023 lab* completed [email or web address] [address], [address], 11/14/2023 16:51:16 11/10/2023 CT, chest, w/o contrast completed [address], [address], 11/18/2023 19:03:33 Procedure Notes None recorded. Medical Equipment None Reported. Allergies No known drug allergies Medications Name Sig Start Date Stop Date Status Note LastModified by Organization Details LastModified Time atorvastati n 40 mg tablet TAKE 1 TABLET BY MOUTH ONCE DAILY WITH SUPPER FOR HIGH CHOLESTER OL 03/12 completed Not Available Not Available Not Available atorvastati n 80 mg tablet Take 1 tablet every day by oral route at bedtime for 90 days, for high cholester ol. 2023 active Not Available Not Available Not Avai lable tizanidine 2 mg tablet TAKE 1 TABLET BY MOUTH EVERY 6 HOURS NEEDED FOR 14 DAYS FOR MUSCLE PAIN active Not Available Not Available No t Available aspirin 325 mg tablet Take 1 tablet every day by oral route in the morning for 30 days. 2022 active OTC Not Available Not Available Not Avai lable metoprolol succinate ER 50 mg tablet,exte nded release 24 hr TAKE 1 TABLET BY MOUTH ONCE DAILY active Not Available Not Available No t Available alendronate 70 mg tablet TAKE 1 TABLET BY MOUTH ONCE A WEEK 01/21 completed Not Available Not Available Not Available cyanocobala min (vit B-12) 1,000 mcg tablet Take 1 tablet every day by oral route. 11/28 completed Not Available Not Available Not Available tamsulosin 0.4 mg capsule TAKE 2 CAPSULES BY MOUTH ONCE DAILY IN THE MORNING active Not Available Not Available No t Available baclofen 10 mg tablet 11/28 completed Not Available Not Available Not Available lidocaine 5 % topical patch Apply by topical route for 15 days. 02/07 completed Not Available Not Available Not Available losartan 25 mg tablet TAKE 1/2 (ONE-HALF ) TABLET BY MOUTH ONCE DAILY completed Not Available Not Available Not Available nitroglycer in 0.4 mg sublingual tablet DISSOLVE ONE TABLET UNDER THE TONGUE EVERY 5 MINUTES NEEDED FOR CHEST PAIN. DO NOT EXCEED A TOTAL OF 3 DOSES IN 15 MINUTES. IF PAIN PERSISTS TAKE 4 BABY ASPIRIN AND CALL 911 active Not Available Not Available No t Available aspirin 81 mg tablet Take 1 tablet every day by oral route. 12/28 completed OTC Not Available Not Available Not Available metoprolol succinate ER 25 mg tablet,exte nded release 24 hr TAKE 1 TABLET BY MOUTH ONCE DAILY IN THE MORNING 10/06 completed Not Available Not Available Not Available ergocalcife rol (vitamin D2) 1,250 mcg (50,000 unit) capsule TAKE 1 CAPSULE BY MOUTH ONCE A WEEK WITH MEALS FOR 90 DAYS active Not Available Not Available No t Available albuterol sulfate HFA 90 mcg/actuati on aerosol inhaler INHALE 2 PUFFS BY MOUTH EVERY 6 HOURS NEEDED FOR WHEEZING FOR SHORTNESS OF BREATH active Not Available Not Available No t Available neomycin 3.5 mg/g-polymy juan B 10,000 unit/g-dexa meth 0.1 % eye oint APPLY 1 2 INCH RIBBON INTO INSIDE OF LOWER EYELIDS IN BOTH EYES AT BEDTIME FOR 2 WEEKS 11/28 completed Not Available Not Available Not Available nitrofurant oin monohydrate /macrocryst als 100 mg capsule TAKE 1 CAPSULE BY MOUTH EVERY 12 HOURS WITH MEALS FOR 5 DAYS active Not Available Not Available No t Available Advair HFA 115 mcg-21 mcg/actuati on aerosol inhaler 2024 active Not Available Not Available Not Avai lable Symbicort 160 mcg-4.5 mcg/actuati on HFA aerosol inhaler INHALE 2 PUFFS BY MOUTH TWICE DAILY FOR 30 DAYS active Not Available Not Available No t Available cholecalcif rhea (vitamin D3) 1,250 mcg (50,000 unit) capsule TAKE 1 CAPSULE BY MOUTH ONCE A WEEK WITH MEALS 2024 active Not Available Not Available Not Avai lable GaviLyte-G 236 gram-22.74 gram-6.74 gram-5.86 gram oral solution completed Not Available Not Available Not Available Incruse Ellipta 62.5 mcg/actuati on powder for inhalation 11/28 completed Not Available Not Available Not Available fluticasone 113 mcg-salmete rol 14 mcg/actuati on breath activated powdr INHALE 1 PUFF BY MOUTH TWICE DAILY DIRECTED active Not Available Not Available No t Available Sutab 1.479-0.188 -0.225 gram tablet 12/13 completed Not Available Not Available Not Available Vitals Date Recorded Body height Body mass index (BMI) Body weight Oxygen saturation Oxygen saturation in Arterial blood by Pulse oximetry Heart rate Respiratory rate Systolic blood pressure Diastolic blood pressure Provider Name and Address Organization Details Last Updated DateTime 4 185.42 cm 27.1 kg/m2 73109.8 4 g 97 % 97 % 105 /min 20 /min 110 mm[Hg] 70 mm[Hg] Diane Mcclain MA [facility] 4 15:18:38 Date Recorded Body height Body mass index (BMI) Body weight Oxygen saturation Oxygen saturation in Arterial blood by Pulse oximetry Heart rate Respiratory rate Systolic blood pressure Diastolic blood pressure Provider Name and Address Organization Details Last Updated DateTime 4 185.42 cm 27.1 kg/m2 11615.8 4 g 97 % 97 % 75 /min 18 /min 104 mm[Hg] 68 mm[Hg] Diane Mcclain MA [facility] 4 09:15:27 Date Recorded Body height Body mass index (BMI) Body weight Oxygen saturation Oxygen saturation in Arterial blood by Pulse oximetry Heart rate Respiratory rate Systolic blood pressure Diastolic blood pressure Provider Name and Address Organization Details Last Updated DateTime 5 185.42 cm 26.6 kg/m2 37470.4 7 g 97 % 97 % 68 /min 18 /min 140 mm[Hg] 80 mm[Hg] Diana Gottlieb MA [facility] 5 09:31:59 Date Recorded Systolic blood pressure Diastolic blood pressure Provider Name and Address Organization Details Last Updated DateTime 10/06/2024 110 mm[Hg] 70 mm[Hg] STELLA CABRERA Attn: Accounting,[address] [place], [address], [facility] 10/06/2024 11:57:36 Social History Question Answer Notes LastModified by Organizat ion Details LastModified Time Tobacco Smoking Status Former Smoker Grisel Arenas MA null, [facility] 05/22/2018 10:57:33 Do You Have An Advance Directive? No Information not available 05/22/2018 What Is Your Level Of Alcohol Consumption? None Information not available 12/29/2020 Are You Blind Or Do You Have Difficulty Seeing? No Information not available 12/29/2020 What Is Your Level Of Caffeine Consumption? Moderate Information not available 05/22/2018 How Much Tobacco Do You Chew? None Information not available 05/22/2018 In The 14 Days Before Symptom Onset, Have You Had Close Contact With A Laboratory-confi rmed COVID-19 While That Case Was Ill? No Information not available 12/29/2020 In The 14 Days Before Symptom Onset, Have You Had Close Contact With A Person Who Is Under Investigation For COVID-19 While That Person Was Ill? No Information not available 12/29/2020 Have You Been To An Area Known To Be High Risk For COVID-19? No Information not available 12/29/2020 Are You Currently Employed? No Information not available 12/29/2020 Are You Deaf Or Do You Have Serious Difficulty Hearing? No Information not available 12/29/2020 What Type Of Diet Are You Following? REGULAR Information not available 12/29/2020 Which Illicit Or Recreational Drugs Have You Used? None Information not available 05/22/2018 Are There Any Guns Present In Your Home? No Information not available 12/29/2020 Live Alone Or With Others? With Others Information not available 05/22/2018 Marital Status Informatio n not available 05/22/2018 What Was The Date Of Your Most Recent Tobacco Screening? 10/06/2024 Information not available 10/06/2024 What Is Your Relationship Status? Information not available 12/29/2020 Do You Use Your Seat Belt Or Car Seat Routinely? Yes Information not available 12/29/2020 Do You Have Smoke And Carbon Monoxide Detectors In Your Home? Yes Information not available 12/29/2020 Are You Passively Exposed To Smoke? Yes Information not available 12/29/2020 How Much Tobacco Do You Smoke? 1 PPD Information not available 12/29/2020 Do You Feel Stressed (tense, Restless, Nervous, Or Anxious, Or Unable To Sleep At Night)? [id number] Information not available 12/29/2020 Do You Use Any Illicit Or Recreational Drugs? Yes Marijuana Occasionally Information not available 12/29/2020 Do You Use Sunscreen Routinely? Yes [email or web address] Information not available 11/28/2021 Has Tobacco Cessation Counseling Been Provided? Yes Information not available 02/07/2023 On What Date Was Tobacco Cessation Counseling Provided? 10/06/2024 Information not available 10/06/2024 How Many Years Have You Smoked Tobacco? 45 Quit 2018 [email or web address] Information not available 11/28/2021 Sex: Male Functional Status Question Answer Note LastModified by Organizat ion Details LastModified Time Are you able to care for yourself? Yes Information not available 12/29/2020 What is your exercise level? Occasional Information not available 05/22/2018 Mental Status None recorded. Family History Nothing Reported. Medical History Condition Response Coronary Artery Disease N Other N High Blood Pressure N Atrial Fibrillation Y Kidney or Bladder Problems N Thyroid Problems N GI Problems N Depression N COPD Y Blood Clots N Skin Problems Y Anemia N Heart Attack ([place]) N Anxiety Disorder Y Diabetes N Muscle, Joint, or Bone Problems Y Seizures/Epilepsy N Acid Reflux (GERD) Y Cancer N Stroke N Asthma N Allergies Y ADHD N High Cholesterol N Hepatitis N Liver Disease N Headaches Y Heart Failure Y Osteoporosis Y Immunizations Vaccine Type Date Status Note Provider Nam e and Address Organization Details Recorded Time Influenza, split virus, quadrivalent, PF 05/07/2018 completed Not Available [facility] 02:35:59 Past Encounters Encounter ID Performer Location Encounter Start Date Encounter Closed Date Diagnosis/Indication Diagnosis SNOMED-CT Code Diagnosis ICD10 Code Diagnosis Note [id number] Jazmin Abel MD [facility] [address] [place] [address] 04/22/2018 11:02:50 04/22/2018 13:23:37 Moderate persistent asthma 136572943 J45.40 continue incruse ellipta and ventolin Osteoporosis 99431107 M8 1.0 poor healing after fracture of the right shoulder Pulmonary emphysema 8743 3001 J43.9 Atrial fibrillation 4943 6004 I48.91 had heart cath; no blockage of arteries; get occasional pain and palpitatio ns; takes aspirin. Arthritis 7298924 M19.90 takes baclofen for muscle spasms History of tobacco use 0184675143 103 Z87.891 discussed screening for early lung cancer. Multiple joint pain 3567 8005 M25.50 Standardiz ed adult depression screening tool completed 0553510007 00178 Z13.89 patient has mild depression . Body mass index 25-29 - overweight 264267558 Z68.25 discussed low fat, low carb diet, and encouraged exercise. It should be noted that patient has lost 2 inches of height due to his osteoporos is, so his actual BMI would be in the normal range if he had not had problems with osteoporos is. [id number] Jazmin Abel MD [facility] [address] [place] [address] 05/06/2018 14:40:41 05/06/2018 16:52:20 Atrial fibrillation 21074435 I48.91 had heart cath; no blockage of arteries; get occasional pain and palpitatio ns; takes aspirin. Osteoporosis 60274296 M8 1.0 poor healing after fracture of the right shoulder Active or passive immunization 154493873 Z23 risks and benefits of immunizati ons reviewed. History of disorder of vision 3556093172 92163 Z86.69 may have retinal detachment or ocular migraines. [id number] Jazmin Abel MD [facility] [address] [place] [address] 05/22/2018 10:36:31 05/27/2018 14:48:08 Persistent insomnia 478381461 G47.09 uses CPAP Obstructiv e sleep apnea of adult 7113635912 103 G47.33 has a machine, needs a good nasal mask--I would recommend [facility] nasal mask, extra large due to large nose. [id number] Jazmin Abel MD [facility] [address] [place] [address] 06/24/2018 13:43:02 07/02/2018 16:09:29 Bilateral carpal tunnel syndrome 4526584838 0967730 G56.03 numb and painful along ulnar nerve distributi on; weakness worse with driving. Unsteady when walking 22 150762 R26.89 likely to fall and become injured. Degenerati ve joint disease involving multiple joints 018353304 M15.9 hurts to sit for a prolonged period of time, trouble going up or down stairs, gets back spasms with prolonged standing. Osteoporos is makes more likely to have a fracture if he falls but he is not steady while walking. Presbyopia 70059497 H52. 4 diplopia, trouble like horizontal lines flipping across vision. [id number] Rashad Blanco MD [facility] [address] [place] [address] 07/09/2018 11:05:05 07/11/2018 15:08:29 Chronic blepharitis 67316178 H01.009 Twitching eye 917646872 H55.89 [id number] Jazmin Abel MD [facility] [address] [place] [address] 04/03/2019 11:36:01 04/06/2019 09:49:19 Angina pectoris 524613881 I20.9 Pain in left knee 012161 5392 70229 M25.562 Screening for malignant neoplasm of colon 736710010 Z12.11 Bilateral hip joint pain 5993166220 8592379 M25.551 M25.552 Pain of ri ght shoulder joint 0389182004 4518623 M25.511 Standardiz ed adult depression screening tool completed 1357113485 29202 Z13.89 patient has mild depression . Will be monitored. Denies suicidal or homicidal ideation, enjoys being with friends, sleeping and eating normally. [id number] Jazmin Abel MD [facility] [address] [place] [address] 06/11/2019 16:52:08 06/15/2019 10:03:16 Coronary atherosclerosis 893518394 I25.119 intermitte nt chest pain, and calcium deposits in coronary arteries. Patient has prescripti on for NTG. Lumbago with sciatica 20 3460120 M54.40 Depression screening 171 283236 Z13.31 Mild depression ; will monitor and consider adding an SSRI. Chronic ob structive pulmonary disease 08980016 J44.9 Patient uses Incruse ellipta to prevent bronchospa sm, and albuterol inhaler as needed for wheezing. [id number] Jazmin Abel MD [facility] [address] [place] [address] 07/23/2019 15:51:39 07/30/2019 03:47:29 [id number] Jazmin Abel MD [facility] [address] [place] [address] 08/27/2019 13:43:29 09/01/2019 00:09:42 [id number] Jazmin Abel MD [facility] [address] [place] [address] 12/29/2020 10:04:23 12/29/2020 17:00:49 Change in skin lesion 493322709 L98.9 non healing lesion in left side of neck under watson for 2.5 years. Vitamin D deficiency 347 01526 E55.9 Macrocytos is - no anemia 754319536 D75.89 Osteoporosis 88941556 M8 1.0 poor healing after fracture of the right shoulder Angina pectoris 79545027 0 I20.9 Pain in left arm 4326703 00 M79.602 Moderate p ersistent asthma 645726731 J45.40 continue incruse ellipta and ventolin Depression screening 171 756504 Z13.31 mild to minimal depression [id number] STELLA CABRERA [facility] [address] [place] [address] 11/28/2021 13:39:49 11/29/2021 10:49:48 Pulmonary emphysema 29113254 J43.[address] scan 2019quit smoking 2019SOB with walking up inclineno SOB at restcontro lled on on ventolin and advairPEx- decreased breath sounds due to emphysemad ue for repeat low dose CT scan Osteoporosis 56462530 M8 1.0 DEXA 2018 showed osteoporos haylee alendronat edue for repeatre-c heck Vit D level Chronic at rial fibrillation 115364305 I48.20 on ASA 81 mglast saw Cardiology 2019, ddx with CAD, cardiomyop athy, and chronic A fibdue for f/u cardio Screening for malignant neoplasm of colon 312767629 Z12.11 has never had colon cancer screenno bowel changes, diarrhea, or constipati onno blood in stoolorder ed cologuard Adult heal th examination 940878344 Z00.00 routine labs Dizziness 691201044 R42 intermitte nt x1 molasts a couple seconds and then goes awayoccurs with position changessit ting to standing, laying flat on bedno concerning sxdiscusse d cardio/hailee ro/orthost atic/BPPVe ncouraged increasing fluid intakef/u if sx do not improve Depression screening 171 799125 Z13.31 PHQ 4 [id number] STELLA CABRERA [facility] [address] [facility] [place] [address] 12/13/2022 09:29:48 12/13/2022 10:00:15 Chronic atrial fibrillation 718844074 I48.20 12/13/22:unk nown last time he saw cardioPEx- heart rate irregularl y irregulars tates that he has been taking his meds, chart review shows last fill 04/202211/28/21:on ASA 81 mglast saw Cardiology 2019, ddx with CAD, cardiomyop athy, and chronic A fibdue for f/u cardio Screening for malignant neoplasm of colon 672570493 Z12.11 cologuard positiveco lonoscopy 01/2022 showed adenoma, rec'd repeat in 1 yrdue for repeatwill send referral Depression screening 171 135028 Z13.31 PHQ 6 Retention of urine 54454 4002 R33.9 x1 yrfeels like he has to go and dribbles, occurs a couple times/week trial flomaxf/u in 2 wks Fracture o f multiple ribs 0322669 S22.42XA 12/06/22 CTA chest: moderate emphysema, 4 mm nodule right middle lobe, benign, old granulomat ous disease, small sliding hiatal hernia, chronic compressio n fractures T8, T11, L2, non-displa hayley fracture of sternum, fractures of L 3rd-5th ribsgiven lidocaine patchPEx- diffuse ecchymosis to mid chest/ster nal areacan take ribs up to 6 wks to healc/w lidocaine patches and tylenol PRNcan ICE sternal areac/w spirometer f/u in 2 wks Closed fra cture of sternum 23260874 S22.20XA non-displa cedPEx- diffuse ecchymosis to mid chest/ster nal areac/w lidocaine patches and tylenol PRN [id number] STELLA CABRERA [facility] [address] [place] [address] 12/28/2022 12:00:47 12/28/2022 12:52:39 Fracture of multiple ribs 5057007 S22.42XA 12/28/22:ta turner OTC pain relief 500 mg TIDrefill lidocaine patches 12/13/22 CTA chest: moderate emphysema, 4 mm nodule right middle lobe, benign, old granulomat ous disease, small sliding hiatal hernia, chronic compressio n fractures T8, T11, L2, non-displa hayley fracture of sternum, fractures of L 3rd-5th ribsgiven lidocaine patchPEx- diffuse ecchymosis to mid chest/ster nal areacan take ribs up to 6 wks to healc/w lidocaine patches and tylenol PRNcan ICE sternal areac/w spirometer f/u in 2 wks Closed fra cture of sternum 08723729 S22.20XA 12/28/22:pa in is improving 12/13/22:non -displaced PEx- diffuse ecchymosis to mid chest/ster nal areac/w lidocaine patches and tylenol PRN Retention of urine 33846 4002 R33.9 12/28/22:im provement with flomaxdrib chelsie has decreased 12/13/22:x1 yrfeels like he has to go and dribbles, occurs a couple times/week trial flomaxf/u in 2 wks Chronic at rial fibrillation 671848532 I48.20 12/28/22:ca rdio note 01/2022 on ASA 325refer back to Dr. Carlson 12/13/22:unk nown last time he saw cardioPEx- heart rate irregularl y irregulars tates that he has been taking his meds, chart review shows last fill 04/202211/28/21:on ASA 83 mglast saw Cardiology 2019, ddx with CAD, cardiomyop athy, and chronic A fibdue for f/u cardio Screening for malignant neoplasm of colon 521740314 Z12.11 12/28/22: Dr Burnham office aware, advised pt to contact office for appt 12/13/22:col oguard positiveco lonoscopy 01/2022 showed adenoma, rec'd repeat in 1 yrdue for repeatwill send referral Pulmonary emphysema 8743 3001 J43.9 on two inhalers, doesn't know which oneper pharmacy, was on ventolin, fluticason e- scripts have not been picked up in over 1 yrrefer to pulmf/u in 1 mo Osteoporosis 32178726 M8 1.0 DEXA 2018 showed osteoporos haylee alendronat edue for repeatre-c heck Vit D levelorder ed DEXAf/u in 1 mo Overweight 579874061 E66 .3 due for routine labs [id number] STELLA CABRERA [facility] [address] [place] [address] 02/07/2023 10:44:18 02/07/2023 11:32:00 Fracture of multiple ribs 0758720 S22.42XA 02/07/23:pa in is improving 12/28/22:bernardo tompkins OT pain relief 500 mg TIDrefill lidocaine patches 12/13/22 CTA chest: moderate emphysema, 4 mm nodule right middle lobe, benign, old granulomat ous disease, small sliding hiatal hernia, chronic compressio n fractures T8, T11, L2, non-displa hayley fracture of sternum, fractures of L 3rd-5th ribsgiven lidocaine patchPEx- diffuse ecchymosis to mid chest/ster nal areacan take ribs up to 6 wks to healc/w lidocaine patches and tylenol PRNcan ICE sternal areac/w spirometer f/u in 2 wks Closed fra cture of sternum 30171718 S22.20XA 02/07/23:ab le to take deep breaths w/o painno longer needs lidocaine patches 12/28/22:pa in is improving 12/13/22:non -displaced PEx- diffuse ecchymosis to mid chest/ster nal areac/w lidocaine patches and tylenol PRN Chronic at rial fibrillation 097490563 I48.20 02/07/23:PE x- HR irregularl y irregularp t needs to schedule echo before appt with Dr. Carlson on 02/22/23ref illf/u after appt with Dr. Carlson 12/28/22:ca rdio note 01/2022 on ASA 325refer back to Dr. Carlson 12/13/22:unk nown last time he saw cardioPEx- heart rate irregularl y irregulars tates that he has been taking his meds, chart review shows last fill 04/202211/28/21:on ASA 83 mglast saw Cardiology 2019, ddx with CAD, cardiomyop athy, and chronic A fibdue for f/u cardio Pulmonary emphysema 8743 3001 J43.9 02/07/23:pr inted off referral and encouraged pt to call to schedule apptrefill advairf/u after appt with Pulm 12/28/22:on two inhalers, doesn't know which oneper pharmacy, was on ventolin, fluticason e- scripts have not been picked up in over 1 yrrefer to pulmf/u in 1 mo Osteoporosis 30357694 M8 1.0 02/07/23:c/ w Vit Dwill not continue alendronat egave exercises to do at home 11/28/21 DE XA 2017 showed osteoporos haylee alendronat edue for repeatre-c heck Vit D levelorder ed DEXAf/u in 1 mo Screening for malignant neoplasm of colon 322785183 Z12.11 02/07/23: colonoscop y scheduled 12/28/22: Dr Burnham office aware, advised pt to contact office for appt 12/13/22:col oguard positiveco lonoscopy 01/2022 showed adenoma, rec'd repeat in 1 yrdue for repeatwill send referral Hyperlipidemia 31022707 E78.5 refill Depression screening 171 294072 Z13.31 PHQ 3 [id number] STELLA CABRERA [facility] [address] [place] [address] 04/05/2023 10:39:19 04/08/2023 16:05:09 Chronic atrial fibrillation 850794929 I48.20 04/05/23:sa w Dr. Carlson on 02/22/23: afib- asymptomat ic, on ASA 325, PRVRA2Asor 0, f/u in 6 mo, discussed results of stress lexiscan test, told that EF improved from 45% to 50% 02/07/23:PE x- HR irregularl y irregularp t needs to schedule echo before appt with Dr. Carlson on 02/22/23ref illf/u after appt with Dr. Carlson 12/28/22:ca rdio note 01/2022 on ASA 325refer back to Dr. Carlson 12/13/22:unk nown last time he saw cardioPEx- heart rate irregularl y irregulars tates that he has been taking his meds, chart review shows last fill 04/202211/28/21:on ASA 83 mglast saw Cardiology 2019, ddx with CAD, cardiomyop athy, and chronic A fibdue for f/u cardio Osteoporosis 39509448 M8 1.0 04/05/23:DE XA 12/2022: osteopenia L hip and femoral neck, osteoporos is AP lumbardoin g home exercise program for strength 02/07/23:c/ w Vit Dwill not continue alendronat e due to taking for 4 yrsgave exercises to do at home 11/28/21:DE XA 2017 showed osteoporos haylee alendronat edue for repeatre-c heck Vit D levelorder ed DEXAf/u in 1 mo Pulmonary emphysema 8743 3001 J43.9 04/05/23:sa w Dr. Anthony on 02/27/23: c/w airduo, gave samples of spiriva to use in addition to airduo, c/w albuterol, repeat PFT, repeat connective tissue labs, repeat CT due to from outside hospital showed upper lobe fibrosis honeycombi ng 02/07/23:pr inted off referral and encouraged pt to call to schedule apptrefill advairf/u after appt with Pulm 12/28/22:on two inhalers, doesn't know which oneper pharmacy, was on ventolin, fluticason e- scripts have not been picked up in over 1 yrrefer to pulmf/u in 1 mo Screening for malignant neoplasm of colon 862946286 Z12.11 04/05/23:tu bular adenomas, repeat 202502/07/23: colonoscop y scheduled 12/28/22: Dr Burnham office aware, advised pt to contact office for appt 12/13/22:col oguard positiveco lonoscopy 01/2022 showed adenoma, rec'd repeat in 1 yrdue for repeatwill send referral Depression screening 171 [id number] Z13.31 PHQ 0 Closed fra cture of sternum [id number] S22.20XA 04/05/23:st ill c/o mid sternal painworse with taking deep breaths, laying on his sideno pain with palpationd iscussed with pt fracture can take longer to heal due to osteoporos isif pulm does CT scan- can assess sternum fracturef/ u in 1 mo 02/07/23:ab le to take deep breaths w/o painno longer needs lidocaine patches 12/28/22:pa in is improving 12/13/22:non -displaced PEx- diffuse ecchymosis to mid chest/ster nal areac/w lidocaine patches and tylenol PRN [id number] STELLA CABRERA [facility] [address] [place] [address] 10/10/2023 09:07:50 10/10/2023 09:47:19 Chronic atrial fibrillation [id number] I48.20 10/10/23: saw Dr. Carlson 08/2023, EF 40%, stopped losartanne ed consult note 04/05/23:sa w Dr. Carlson on 02/22/23: afib- asymptomat ic, on ASA 325, [id number] 0, f/u in 6 mo, discussed results of stress lexiscan test, told that EF improved from 45% to 50% 02/07/23:PE x- HR irregularl y irregularp t needs to schedule echo before appt with Dr. Carlson on 02/22/23ref illf/u after appt with Dr. Carlson 12/28/22:ca rdio note 01/2022 on ASA 325refer back to Dr. Carlson 12/13/22:unk nown last time he saw cardioPEx- heart rate irregularl y irregulars tates that he has been taking his meds, chart review shows last fill 04/202211/28/21:on ASA 81 mglast saw Cardiology 2019, ddx with CAD, cardiomyop athy, and chronic A fibdue for f/u cardio Pulmonary emphysema 8743 3001 J43.9 10/10/23: started new inhaler, unknown name, has f/u 01/202404/05/23:sa w Dr. Anthony on 02/27/23: c/w airduo, gave samples of spiriva to use in addition to airduo, c/w albuterol, repeat PFTs, repeat connective tissue labs, repeat CT due to from outside hospital showed upper lobe fibrosis honeycombi ng 02/07/23:pr inted off referral and encouraged pt to call to schedule apptrefill advairf/u after appt with Pulm 12/28/22:on two inhalers, doesn't know which oneper pharmacy, was on ventolin, fluticason e- scripts have not been picked up in over 1 yrrefer to pulmf/u in 1 mo Dupuytren' s contracture of finger [id number] M72.0 bilateral pinky fingersa/w intermitte nt numbnessre mark to hand surgery Dizziness [id number] R42 10/10/23: x3 wksoccurs with position changes from laying flat to sittingno concerning sxPEx- nlreassure d pt, rec'd pt slowly changes positions from laying to sitting to see if symptoms improveinc rease fluid intake with water, less coffee throughout the dayf/u in 2 wks if sx do not improve 11/2021:int ermittent x1 molasts a couple seconds and then goes awayoccurs with position changessit ting to standing, laying flat on bedno concerning sxdiscusse d cardio/hailee ro/orthost atic/BPPVe ncouraged increasing fluid intakef/u if sx do not improve Depression screening 171 [id number] Z13.31 PHQ 8 [id number] STELLA CABRERA [facility] [address] [place] [address] 11/14/2023 15:13:06 11/14/2023 15:48:53 Neck pain [id number] M54.2 s/p fall 11/10/23wen t to ED, CT brain, CT C spine, CT chest, XR R shoulder normaltaki ng tizanidine with some improvemen tc/o pulling to R side of neck and R shoulderPE x- FROM R shoulder joint and C spinept requesting PT for neck pain, will send referral Dupuytren' s contracture of finger [id number] M72.0 11/14/23: saw Dr. Hayes 10/31/23- dupuytren' s disease R hand, discussed surgery vs injections 10/10/23:bi lateral pinky fingersa/w intermitte nt numbnessre mark to hand surgery [id number] STELLA CABRERA [facility] [address] [place] [address] 01/08/2024 09:11:55 01/08/2024 09:27:38 Neck pain [id number] M54.2 01/08/24: improvemen t in neck pain with PThas final eval tomorrow 11/14/23:s/p fall 11/10/23wen t to ED, CT brain, CT C spine, CT chest, XR R shoulder normaltaki ng tizanidine with some improvemen tc/o pulling to R side of neck and R shoulderPE x- FROM R shoulder joint and C spinept requesting PT for neck pain, will send referral Pulmonary emphysema 8743 3001 J43.9 01/08/24: has appt 01/13/24as not been on any inhalers for the past 2 months, was on airduo and spirivaref ill albuterol 10/10/23: started new inhaler, unknown name, has f/u 01/202404/05/23:sa w Dr. Anthony on 02/27/23: c/w airduo, gave samples of spiriva to use in addition to airduo, c/w albuterol, repeat PFTs, repeat connective tissue labs, repeat CT due to from outside hospital showed upper lobe fibrosis honeycombi ng 02/07/23:pr inted off referral and encouraged pt to call to schedule apptrefill advairf/u after appt with Pulm 12/28/22:on two inhalers, doesn't know which oneper pharmacy, was on ventolin, fluticason e- scripts have not been picked up in over 1 yrrefer to pulmf/u in 1 mo Hyperlipidemia [id number] E78.5 refill Depression screening 171 083998 Z13.31 PHQ 0 Chronic at rial fibrillation [id number] I48.20 01/08/24: HR irregularl y irregular, chronic 10/10/23: saw Dr. Carlson 08/2023, EF 40%, stopped losartanne ed consult note 04/05/23:sa w Dr. Carlson on 02/22/23: afib- asymptomat ic, on ASA 325, SWNBT2Iaxp 0, f/u in 6 mo, discussed results of stress lexiscan test, told that EF improved from 45% to 50% 02/07/23:PE x- HR irregularl y irregularp t needs to schedule echo before appt with Dr. Carlson on 02/22/23ref illf/u after appt with Dr. Carlson 12/28/22:ca rdio note 01/2022 on ASA 325refer back to Dr. Carlson 12/13/22:unk nown last time he saw cardioPEx- heart rate irregularl y irregulars tates that he has been taking his meds, chart review shows last fill 04/202211/28/21:on ASA 81 mglast saw Cardiology 2019, ddx with CAD, cardiomyop athy, and chronic A fibdue for f/u cardio [id number] Diana Gottlieb MA [facility] [address] [place] [address] 03/03/2024 12:20:31 03/03/2024 12:43:41 Adult health examination [id number] Z00.00 routine labs [id number] STELLA CABRERA [facility] [address] [place] [address] 10/06/2024 09:19:56 10/06/2024 10:00:17 Pulmonary emphysema [id number] J43.9 10/06/24: pt is not on air duo/advair , sent to pharmacy OV with Pulm 09/07/24-CO PD/emphyse maContinue albuterol. Seems to be on air duo also.Repea t PFT ILD-pulmon jesusita fibrosisMa ybe CPFE vs work related pneumonoco niosisvs HP vs other. CT from outside hospital with reportedly some upper lobe fibrosis honeycombi ng.Never got labs doneRepeat ct Tobacco abuse50 pack year history, quit 2018Lung cancer screening ct 01/08/24: has appt 01/13/24as not been on any inhalers for the past 2 months, was on airduo and spirivaref ill albuterol 10/10/23: started new inhaler, unknown name, has f/u 01/202404/05/23:sa w Dr. Anthony on 02/27/23: c/w airduo, gave samples of spiriva to use in addition to airduo, c/w albuterol, repeat PFTs, repeat connective tissue labs, repeat CT due to from outside hospital showed upper lobe fibrosis honeycombi ng 02/07/23:pr inted off referral and encouraged pt to call to schedule apptrefill advairf/u after appt with Pulm 12/28/22:on two inhalers, doesn't know which oneper pharmacy, was on ventolin, fluticason e- scripts have not been picked up in over 1 yrrefer to pulmf/u in 1 mo Chronic at rial fibrillation [id number] I48.20 10/06/24: OV with Dr. Carlson 09/02/24- discussed echo results, do not see results in consult notec/w metoprolol 50 and ASA 325 01/08/24: HR irregularl y irregular, chronic 10/10/23: saw Dr. Carlson 08/2023, EF 40%, stopped losartanne ed consult note 04/05/23:sa w Dr. Carlson on 02/22/23: afib- asymptomat ic, on ASA 325, MPFBY8Azxy 0, f/u in 6 mo, discussed results of stress lexiscan test, told that EF improved from 45% to 50% 02/07/23:PE x- HR irregularl y irregularp t needs to schedule echo before appt with Dr. Carlson on 02/22/23ref illf/u after appt with Dr. Carlson 12/28/22:ca rdio note 01/2022 on ASA 325refer back to Dr. Carlson 12/13/22:unk nown last time he saw cardioPEx- heart rate irregularl y irregulars tates that he has been taking his meds, chart review shows last fill 04/202211/28/21:on ASA 81 mglast saw Cardiology 2019, ddx with CAD, cardiomyop athy, and chronic A fibdue for f/u cardio Retention of urine 31017 4002 R33.9 10/06/24 increase flomax to 0.8 mg 12/28/22:im provement with flomaxdrib chelsie has decreased 12/13/22:x1 yrfeels like he has to go and dribbles, occurs a couple times/week trial flomaxf/u in 2 wks Dysuria 94953551 R30.0 10/06/24: intermitte nt, before and during urination x3 mono hematurian o h/o kidney stonesurin e dip showed moderate leuks and moderate non-hemoly zed bloodsent for UA, did not provide enough urine, will come back to leave urine sample for culture Depression screening 171 780759 Z13.31 PHQ 0 Strain of thoracic region 18477329 S29.019A twisted the wrong way on his stairs yesterday and pulled muscle on the right side of his backrec'd heating, light stretching pt has tizanidine script [id number] Diane Mcclain MA [facility] [address] [place] [address] 10/08/2024 12:55:58 10/08/2024 13:06:40 Health Concerns Section Related Observation LastModified by Organization Detai ls LastModified Time None Recorded Concern Status LastModified by Organization Details LastModified Time None Recorded Advance Directives Directive N: Payers Encounter Date Sequence Insurance Name Policy Number Policy Hankins Covered Member ID Hankins Member ID Guarantor Name 11/14/2023 1 [place] Stanislav Cho [id number] Stanislav Cho 11/14/2023 1 [facility] [id number] Stanislav Cho [id number] Stanislav Cho 01/08/2024 1 [place] Stanislav Cho [id number] Stanislav Cho 01/08/2024 1 [facility] [id number] Stanislav Cho [id number] Stanislav Cho 03/03/2024 1 [place] Stanislav Cho [id number] Stanislav Cho 03/03/2024 1 [facility] [id number] Stanislav Cho [id number] Stanislav Cho 10/06/2024 1 [facility] (MEDICARE REPLACEMENT/ ADVANTAGE - HMO) [id number] Stanislav Cho [id number] Stanislav Cho 10/08/2024 1 [facility] (MEDICARE REPLACEMENT/ ADVANTAGE - HMO) [id number] Stanislav Cho [id number] Stanislav Cho Notes Date Note Type Note Provider Name and Address Organization Details Recorded Time 11/14/2023 text/html Pt presents for ED f/u. Reports on 11/10/23, he was walking outside with his cane when he tripped on a elevated piece of asphalt and landed on his chest. Pt went to ED and all imaging was normal. He has been taking tizanidine with some improvement. C/o difficulty raising his R arm above his head, feels pulling on the R side of his neck and his shoulder. H/o R shoulder surgery in 2013. STELLA CABRERA Attn: [address]ing[address] [facility], [place], [address], [facility] 11/17/2023 13:19:40 01/08/2024 text/html Pt presents for f/u. Reports that his neck pain has improved with physical therapy and has his final evaluation tomorrow. States that his R shoulder has been bothering me more with exercises from PT. Declines referral or work-up for R shoulder pain. STELLA CABRERA Attn: [address]ing[address] [facility], [place], [address], [facility] 01/08/2024 13:16:36 10/06/2024 text/html Pt presents for 6 mo f/u. C/o intermittent burning sensation before and during urination x3 months. C/o urinary retention and sometimes only urinates 1-2 ounces. He has been compliant with flomax. Admits to drinking tea all day and wakes up 5-6x per night to urinate. Denies hematuria. STELLA CABRERA Attn: Accounting[address] [facility], [place], [address], [facility] 10/06/2024 14:11:45
--- OUTSIDE RECORDS SUMMARY | 2024-12-02 17:37 | XMS_ITS | Clinical Summary ---
Author Organization [facility] Address [address] [place] [address] Care Team Providers Care Jig Box Operator Name Role Phone Jazmin Abel MD Primary Care Provider [phone] Source Comments [facility],non-owned Affiliates and Associated Physician Practices is amultiple site organization consisting of ambulatory clinics and hospital sitesin [place], [place], [place] and [place]. This disclosure is being madepursuant to the Care Everywhere program and may not contain all information available regarding this patient. Last updated 18.[employer] [facility] Allergies No known active allergies Medications * Be aware that medications may not be up to date on this document. Alwaysverify current medications with the patient. No known medications Active Problems No known active problems Social History Tobacco Use Types Packs/Day Years Used Date Smoking Tobacco: Former Smokeless Tobacco: Never Alcohol Use Standard Drinks/Week Comments Yes 0 (1 standard drink = 0.6 oz pur e alcohol) AUDIT-C Answer Date Recorded Frequency of Alcohol Consumption 2-4 times a sat05/14/2019 Average Number of Drinks Not on file 019 Frequency of Binge Drinking Not on file 10/2018 Sex and Gender Information Value Date Recorded Sex Assigned at Not on file Legal Sex Male 2:43 PM [employer] Gender Identity Not on file Sexual Orientation Not on file Last Filed Vital Signs Vital Sign Reading Time Taken Comments Blood Pressure - - Pulse - - Temperature - - Respiratory Rate - - Oxygen Saturation - - Inhaled Oxygen Concentration - - Weight 82.6 kg (182 lb) 05/14/2019 2:25 PM CDT Height 182.9 cm (6') 05/14/2019 2:25 PM CDT Body Mass Index 24.68 05/14/2019 2:25 PM CDT Plan of Treatment Health Maintenance Due Date Last Done Comments COLOGUARD (AGES 45-75) - COL ON CA SCREENING 1957 COLON MONITORING 1957 COLONOSCOPY - COLON CA SCREENING 1957 CT COLONOGRAPHY - COLON CA SCREENING 1957 Colorectal Cancer Screening 1957 FIT - COLON CA SCREENING 1957 FLEX SIG - COLON CA SCREENING 1957 LIPID TESTING 1957 MEDICARE AWV 12 MONTHS 1957 HEPATITIS C SCREENING 06/09/1975 DTAP/TDAP/TD VACCINES (1 - Tdap) 1976 PNEUMOCOCCAL VACCINE 50+ (1 of 1 - PCV) 2007 ZOSTER VACCINE (1 of 2) 2007 AAA SCREENING 2022 COVID-19 VACCINE (1 - 2023-2 5 season) 2024 DEPRESSION SCREENING 08/12/2024 INFLUENZA VACCINE (Season Ended) 2025 05/07/20 18 Respiratory Syncytial Virus (RSV) Vaccine Pt: or over 60 yrs (1 - 1-dose 75+ series) 2032 HEPATITIS B VACCINE Aged Out No longe r eligible based on patient's age to complete this topic HIB VACCINE Aged Out No longer eligi ble based on patient's age to complete this topic HPV VACCINE Aged Out No longer eligi ble based on patient's age to complete this topic MENINGOCOCCAL (Group B) VACC INE SHARED DECISION-MAKING Aged Out No longer eligibl e based on patient's age to complete this topic MENINGOCOCCAL GROUPS A/C/Y/W VACCINE Aged Out No longer eligible b ased on patient's age to complete this topic Goals Goal Patient Goal Type Associated Problems Recent Progress Patient-Stated? Author Mobility General No Zoe Rivas, RN Note: Expected end date: 08/12/2019 The goal is to maintain or improve your mobility at the optimum level for you. Interventions: Insurance MEDICARE MEDICARE MEDICARE Care Teams Jig Box Operator Relationship Specialty Start Date End Date Jazmin Abel MD [address] [place] [phone] PCP - General 05/14/19
--- OUTSIDE RECORDS SUMMARY | 2024-12-02 17:37 | XMS_ITS | Clinical Summary ---
Author Organization [facility] Address [address] [place] [address] Care Team Providers Care Director Of Strategy & Mobile Name Role Phone Raya Lozoya Primary Care Provider [phone] Allergies No known active allergies Medications alendronate (FOSAMAX) 70 mg tablet Take 1 tablet (70 mg total) by mouth once a week 2 Active atorvastatin (LIPITOR) 40 mg tablet atorvastatin 40 mg tablet Active ergocalciferol (VITAMIN D) 50,000 unit capsule Take 1 capsule (50,000 Units total) by mouth once a week 2 Active fluticasone propion-salmete roL (AIRDUO RESPICLICK) 113-14 mcg/actuation inhaler Inhale 2 puffs 2 (two) times a day 2 Active losartan (COZAAR) 25 mg tablet 2 Active nitroglycerin (NITROSTAT) 0.4 mg SL tablet DISSOLVE ONE TABLET UNDER THE TONGUE EVERY 5 MINUTES NEEDED FOR CHEST PAIN. DO NOT EXCEED A TOTAL OF 3 DOSES IN 15 MINUTES. IF PAIN PERSISTS TAKE 4 BABY ASPIRIN AND CALL 911 2 Active Sutab 1.479-0.188- 0.225 gram tablet 2 Active traMADoL (ULTRAM) 50 mg tablet Take 1 tablet (50 mg total) by mouth 4 (four) times a day as needed 6 Active tamsulosin (FLOMAX) 0.4 mg extended release capsule TAKE 1 CAPSULE BY MOUTH ONCE DAILY IN THE MORNING FOR 30 DAYS Active cholecalciferol (VITAMIN D-3) 50,000 unit capsule TAKE 1 CAPSULE BY MOUTH ONCE A WEEK WITH MEALS FOR 90 DAYS 4 Active metoprolol XL (TOPROL-XL) 50 mg extended release tablet Take 1 tablet (50 mg total) by mouth daily 4 Active albuterol HFA (PROVENTIL HFA,VENTOLIN HFA,PROAIR HFA) 90 mcg/actuation inhalerIndicati ons:ILD (interstitial lung disease) ([facility]),Chronic obstructive pulmonary disease, unspecified COPD type ([facility]) Inhale 2 puffs every 6 (six) hours as needed for wheezing or shortness of breath 18 g 5 5 Active Active Problems Problem Noted Date Diagnosed Date Dyslipidemia 01/30/2022 Cigarette nicotine dependence in remission 03/30 Aortic valve stenosis 07/29/2018 Atrial enlargement, bilateral 07/29/2018 Pulmonary emphysema 10/25/2017 KELLI (obstructive sleep apnea) 10/25/2017 Pulmonary nodule 10/25/2017 Environmental and seasonal allergies 07/25/2017 Excessive daytime sleepiness 07/25/2017 GERD (gastroesophageal reflux disease) 7 SOB (shortness of breath) on exertion 07/25/2017 Aortic atherosclerosis 07/19/2017 Precordial pain 07/19/2017 Heart murmur 06/21/2017 Marijuana use 06/21/2017 Abnormal findings on diagnos tic imaging of other specified body structures 2017 Systolic murmur 06/12/2017 Unintentional weight loss 06/12/2017 Dupuytren's contracture 06/12/2016 Lower back pain 06/12/2016 Neck strain 06/12/2016 Atrial fibrillation 04/19/2016 Overview (01/30/2022): Description: CHADS2 = 0 Syncope 04/19/2016 Rib injury 01/14/2015 Osteoporosis 11/23/2014 Hyperlipidemia 11/08/2014 Right shoulder pain 10/08/2014 Fracture of upper arm 10/14/2013 Fracture of humerus 10/14/2013 Encounters Date Type Department Care Team Description 11/05/2024 2:27 PM CDT - 11/05/2024 11:59 PM CDT Hospital Encounter [facility] [address] [place] [address] Cigarette nicotine dependence without complication Discharge Disposition: Discharge to home or self care 11/05/2024 1:10 PM CDT - 11/05/2024 11:59 PM CDT Hospital Encounter [facility] Respiratory [address] [place] [address] ILD (interstitial lung disease) (HCC); Chronic obstructive pulmonary disease, unspecified COPD type (HCC) Discharge Disposition: Discharge to home or self care 09/07/2024 1:30 PM CARPENTER ASSISTANT INSTALLER Office Visit [facility] Pulmonology [address] [facility] [address] [place] [id number] Stacia Anthony MD Chronic obstructive pulmonary disease, unspecified COPD type (HCC) (Primary Dx); ILD (interstitial lung disease) (HCC); Cigarette nicotine dependence without complication from Last 3 Months Surgical History Surgery Date Site/Laterality Comments ARM SURGERY 08/12/2013 - 08/11/2014 Right Shoulder, arm, and forearm SKIN CANCER EXCISION 03/12/2021 - 04/11/2021 Removed from jaw Medical History Medical History Date Comments Skin cancer 2020 A-fib (HCC) 1982 Ringing in ear Arthritis Emphysema of lung (HCC) Osteoarthritis Osteoporosis Anemia Family History Medical History Relation Name Comments Skin cancer Brother Arthritis Father Cancer Father Clotting disorder Father Arthritis Mother Cancer Mother Relation Name Status Comments Brother Alive Father Mother Social History Tobacco Use Types Packs/Day Years Used Date Smoking Tobacco: Former Cigarettes 1 50 1 968 - 2017 Smokeless Tobacco: Never Sex and Gender Information Value Date Recorded Sex Assigned at Not on file Legal Sex Male 9:52 AM CARPENTER ASSISTANT INSTALLER Gender Identity Not on file Sexual Orientation Not on file Occupation Industry Job Start Date Job End Date disabled Not on file Not on file Not on file Obstetrics History Last Filed Vital Signs Vital Sign Reading Time Taken Comments Blood Pressure 117/66 09/07/2024 1:50 PM CARPENTER ASSISTANT INSTALLER Pulse 54 09/07/2024 1:50 PM CARPENTER ASSISTANT INSTALLER Temperature 36.5 C (97.7 F) 04/04/2016 3:05 PM CDT Respiratory Rate 18 09/07/2024 1:50 PM CARPENTER ASSISTANT INSTALLER Oxygen Saturation 98% 09/07/2024 1:50 PM CARPENTER ASSISTANT INSTALLER Inhaled Oxygen Concentration - - Weight 92.1 kg (203 lb) 09/07/2024 1:50 PM CARPENTER ASSISTANT INSTALLER Height 185.4 cm (6' 1 ) 09/07/2024 1:50 PM CARPENTER ASSISTANT INSTALLER Body Mass Index 26.78 09/07/2024 1:50 PM CARPENTER ASSISTANT INSTALLER Plan of Treatment Health Maintenance Due Date Last Done Comments Colon Cancer Screening-Colonoscopy 1957 Depression Screening 1957 Fall Risk Assessment 1957 Hepatitis C Screening 1957 Prostate Cancer Screening-PSA 1957 DTaP/Tdap/Td Vaccine (1 - Tdap) 1968 Hepatitis B Screening 1975 Pneumococcal vaccine 65+ (1 of 2 - PCV) 1976 Zoster Vaccine (1 of 2) 2007 Abdominal Aortic Aneurysm (A AA) Screen 2022 Well Visit 65+ 2022 Covid-19 Vaccine ( - season) 2024, 06/14/2021 Influenza Vaccine (Season Ended) 2025 07/05/2021, 05/07/2018, 04/12/2016 Lung Cancer Screening 11/06/2025 11/05/2024, 018 Procedures Procedure Name Priority Date/Time Associated Diagnosis Comments CT LUNG CANCER SCREENING Schedule Routine, Read Routine (OP Routine) 11/05/2024 2:44 PM CDT Cigarette nicotine dependence without complication PULMONARY FUNCTION TEST (PFT) Routine 11/05/2024 2:32 PM CDT ILD (interstitial lung disease) (HCC) Chronic obstructive pulmonary disease, unspecified COPD type (HCC) from Last 3 Months Results * CT Lung Cancer Screening (11/05/2024 2:44 PM CDT) Anatomical Region Laterality Modality Chest N/A Computed Tomogra phy 11/13/2024 9:42 AM CDT Narrative 11/13/2024 9:51 AM CDT EXAM DESCRIPTION: CT LUNG CANCER SCREENING REASON FOR STUDY: Screening CT of the chest in a former smoker with a 45 pack year smoking history. Additional history: None. TECHNIQUE: Low dose CT scan of the chest was performed without intravenous contrast using helical scanning technique. The exam extends from the lung apices through the lung bases. Automatic exposure control was used as a dose optimization technique. NOTE: This study was performed for the specific purposes of lung cancer screening and is not an alternative to diagnostic chest CT. RADIATION DOSE: CT dose index volume (CTDIvol) = 1.8 mGy COMPARISON: CT dated January 13, 2024 FINDINGS: SMOKING RELATED LUNG DISEASE: The central airway is patent. Moderate upper lobe predominant advanced centrilobular emphysema. Bronchiectasis to the lower lobes bilaterally. Biapical pleuroparenchymal scarring is stable. Mild mosaic attenuation in the lung bases. There is scattered interlobular septal thickening with associated subpleural reticulation and mild ground-glass opacities with a peripheral and basilar predominance likely represent chronic nonspecific interstitial change possibly due to combined emphysema and fibrosis. Scattered calcified granulomas are noted. LUNG NODULES: There are several pulmonary nodules the majority of which are stable since December 2021 and therefore likely benign. In the right upper lobe there is a 0.7 cm irregular nodule (axial image 79; stable). 0.5 cm pulmonary nodule in the right middle lobe (axial image 222; stable). A 0.5 cm pleural based pulmonary nodules seen in the left lower lobe laterally (axial image 240; stable). No new concerning pulmonary nodule is seen. CORONARY ARTERY CALCIFICATION: Mild OTHER: Multiple small to mildly enlarged mediastinal lymph nodes. This is stable compared to prior examination. The largest is a subcarinal lymph node measuring maximum 1.3 cm (axial image 142; stable). Multilevel mild compression deformities of the thoracic spine, stable. IMPRESSION: Scattered pulmonary nodules, stable. No new concerning pulmonary nodule is seen. These have demonstrated over 2 years of stability and are likely benign. Moderate upper lobe predominant advanced centrilobular emphysema. Bronchiectasis to the lower lobes bilaterally. Scattered interlobular septal thickening with associated subpleural reticulation and mild ground-glass opacities with a peripheral and basilar predominance likely represent chronic nonspecific interstitial change possibly due to combined emphysema and fibrosis. Lung-RADS category 2: Benign appearance or behavior. Recommendation: Low dose Screening CT of chest in 12 months. THIS IS AN ELECTRONICALLY VERIFIED FINAL REPORT 11/13/2024 9:51 AM - Electronically signed by Alessio RICHARD T: Report ID: [id number] Reading Location: [id number] Procedure Note Alessio Vernon MD - 11/13/2024 EXAM DESCRIPTION: CT LUNG CANCER SCREENING REASON FOR STUDY: Screening CT of the chest in a former smoker with a45 pack year smoking history. Additional history: None. TECHNIQUE: Low dose CT scan of the chest was performed without intravenous contrast using helical scanning technique. The exam extends from the lung apices through the lung bases. Automatic exposure control was used as adose optimization technique. NOTE: This study was performed for the specific purposes of lung cancer screening and is not an alternative to diagnostic chest CT. RADIATION DOSE: CT dose index volume (CTDIvol) = 1.8 mGy COMPARISON: CT dated January 13, 2024 FINDINGS: SMOKING RELATED LUNG DISEASE: The central airway is patent. Moderate upper lobe predominant advanced centrilobular emphysema. Bronchiectasis to the lower lobes bilaterally. Biapical pleuroparenchymal scarring is stable. Mild mosaic attenuation in the lung bases. There is scattered interlobular septal thickening with associated subpleural reticulation and mild ground-glass opacities with a peripheral and basilar predominance likely represent chronic nonspecific interstitial changepossibly due to combined emphysema and fibrosis. Scattered calcified granulomasare noted. LUNG NODULES: There are several pulmonary nodules the majority of whichare stable since December 2021 and therefore likely benign. In the right upperlobe there is a 0.7 cm irregular nodule (axial image 79; stable). 0.5 cmpulmonary nodule in the right middle lobe (axial image 222; stable). A 0.5 cmpleural based pulmonary nodules seen in the left lower lobe laterally (axial image 240; stable). No new concerning pulmonary nodule is seen. CORONARY ARTERY CALCIFICATION: Mild OTHER: Multiple small to mildly enlarged mediastinal lymph nodes. Thisis stable compared to prior examination. The largest is a subcarinal lymphnode measuring maximum 1.3 cm (axial image 142; stable). Multilevel mild compression deformities of the thoracic spine, stable. IMPRESSION: Scattered pulmonary nodules, stable. No new concerning pulmonary noduleis seen. These have demonstrated over 2 years of stability and are likely benign. Moderate upper lobe predominant advanced centrilobular emphysema. Bronchiectasis to the lower lobes bilaterally. Scattered interlobular septal thickening with associated subpleural reticulation and mild ground-glass opacities with a peripheral and basilar predominance likely represent chronic nonspecific interstitial changepossibly due to combined emphysema and fibrosis. Lung-RADS category 2: Benign appearance or behavior. Recommendation: Low dose Screening CT of chest in 12 months. THIS IS AN ELECTRONICALLY VERIFIED FINAL REPORT 11/13/2024 9:51 AM - Electronically signed by Alessio Vernon M.D. JA T: Report ID: [id number] Reading Location: [place] [address] [place] Stacia Anthony MD IMG CT PROCEDURES Final Resul t * Pulmonary Function Test - (11/05/2024 2:32 PM CDT) FVC POST 4.41 L 11/05/2024 2:23 PM CDT [facility] FEV1 POST 3.16 L 11/05/2024 2:23 PM CDT [facility] [id number] 71.54 % 11/05/2024 2:23 PM CDT [facility] [id number]% POST 2.15 L/s 11/05/2024 2:23 PM CDT [facility] PEF POST 9.19 L/s 11/05/2024 2:23 PM CDT [facility] DLCOc SB 13.25 ml/(min*mm Hg) 11/05/2024 2:23 PM CDT [facility] DLCO/VA PRE 2.44 ml/(min*mm Hg*L) 11/05/2024 2:23 PM CDT [facility] VA 5.44 L 11/05/2024 2:23 PM CDT [facility] TLC PRE 6.07 L 11/05/2024 2:23 PM CDT [facility] VC PRE 4.79 L 11/05/2024 2:23 PM CDT [facility] IC PRE 4.01 L 11/05/2024 2:23 PM CDT [facility] FRC PL PRE 2.44 L 11/05/2024 2:23 PM CDT [facility] ERV PRE 1.16 L 11/05/2024 2:23 PM CDT [facility] RV PRE 1.28 L 11/05/2024 2:23 PM CDT [facility] RAW PRE 3.00 cmH2O*s/L 11/05/2024 2:23 PM CDT [facility] VTG 3.89 L 11/05/2024 2:23 PM CDT [facility] FVC PRE 4.41 L 11/05/2024 2:23 PM CDT [facility] FEV1 PRE 3.21 L 11/05/2024 2:23 PM CDT [facility] [id number] 72.81 % 11/05/2024 2:23 PM CDT [facility] [id number]% PRE 2.24 L/s 11/05/2024 2:23 PM CDT [facility] PEF PRE 9.09 L/s 11/05/2024 2:23 PM T [facility] Anatomical Region Laterality Modality PFT 11/05/2024 1:24 PM CDT Impressions 11/09/2024 1:31 PM CDT 1. Spirometry is normal. 2. Lung volumes demonstrate mild restrictive ventilatory defect. 3. Severe diffusion impairment. 4. 6 minute walk test performed. Patient walked 920 ft. Patient maintained oxygen saturation 96-99%. Patient did not require supplemental oxygen with exertion. Clinical correlation is advised. Electronically signed by Tez Mendoza DO Pulmonary & Critical Care Narrative 11/09/2024 1:31 PM CDT PULMONARY FUNCTION TESTS Stanislav Cho 69 y.o. 11/09/2024 INTERPRETATION Please see technologist's comments mentioned in attached results report. SPIROMETRY: Pre bronchodilator FEV1 is 89 % predicted, FVC is 92 % predicted, FEV1/FVC is 73 Bronchodilator response: There was no significant bronchodilator response. Inspection of the patient's flow-volume loops shows: Normal configuration of the inspiratory and expiratory limbs. LUNG VOLUMES: Lung volumes by body plethysmography: TLC is 79 % predicted, RV is 40 % predicted DLCO: Unadjusted for hemoglobin and carboxyhemoglobin DLCO is 44 % predicted us Stacia Anthony MD PFT ORDERABLES Final Result from Last 3 Months Insurance [facility] MEDICARE ADVANTAGE Care Teams Director Of Strategy & Mobile Relationship Specialty Start Date End Date Raya Lozoya PA [address] [place] [id number] PCP - General Physician Cementing Bulk Material Operator 01/09/22
--- OUTSIDE RECORDS SUMMARY | 2024-12-02 17:37 | XMS_ITS | Encounter Summary ---
Author Organization [facility] Care Team Providers Care Police Superintendent Name Role Phone Jazmin Abel MD Primary Care Provider [phone] Raya Lozoya Primary Care Provider [phone] Encounter Details Date Type Department Care Team (Latest Contact Info) Description 06/26/2018 Orders Only [facility] CLINCONV ProviderCameron MD [address] [place] [id number] Social History Tobacco Use Types Packs/Day Years Used Date Smoking Tobacco: Never Assessed Sex and Gender Information Value Date Recorded Sex Assigned at Not on file Legal Sex Male 9:52 AM LOGISTICS ASSOCIATE Gender Identity Not on file Sexual Orientation Not on file documented as of this encounter Plan of Treatment Not on file documented as of this encounter Procedures Procedure Name Priority Date/Time Associated Diagnosis Comments CARDIOLOGY REPORT 07/08/2018 12: 00 AM LOGISTICS ASSOCIATE documented in this encounter Results * CARDIOLOGY REPORT (07/08/2018 12:00 AM LOGISTICS ASSOCIATE) Anatomical Region Laterality Modality Other Narrative 07/08/2018 12:00 AM LOGISTICS ASSOCIATE Ordered by an unspecified provider. Historical Provider [facility] PHIL RIZVI Final Result documented in this encounter Visit Diagnoses Not on filedocumented in this encounter Care Teams Police Superintendent Relationship Specialty Start Date End Date Jazmin Abel MD PCP - General Family Medicine 06/12/18 01/08/22 Raya Lozoya PA [address] [place] [address] PCP - General Physician Bander Operator 01/09/22 documented as of this encounter
--- OUTSIDE RECORDS SUMMARY | 2024-12-02 17:37 | XMS_ITS | Referral Summary ---
Author Organization [facility] Address [address] [place] [address] Care Team Providers Care Forklift Truck Operator Name Role Phone Raya Lozoya Primary Care Provider [phone] Encounters Date Type Department Care Team Description 11/05/2024 2:27 PM CDT - 11/05/2024 11:59 PM CDT Hospital Encounter [facility] CT [address] [place] [address] Cigarette nicotine dependence without complication Discharge Disposition: Discharge to home or self care 11/05/2024 1:10 PM CDT - 11/05/2024 11:59 PM CDT Hospital Encounter [facility] Respiratory [address] [place] [address] ILD (interstitial lung disease) (HCC); Chronic obstructive pulmonary disease, unspecified COPD type (HCC) Discharge Disposition: Discharge to home or self care 09/07/2024 1:30 PM COMMERCIAL ENERGY AUDITOR Office Visit [facility] Pulmonology [address] [facility] [address] [place] [id number] Stacia Anthony MD Chronic obstructive pulmonary disease, unspecified COPD type (HCC) (Primary Dx); ILD (interstitial lung disease) (HCC); Cigarette nicotine dependence without complication from Last 3 Months Allergies No known active allergies Medications alendronate [...] 90 mcg/actuation inhalerIndicati ons:ILD (interstitial lung disease) ([facility]),Chronic obstructive pulmonary disease, unspecified COPD type ([facility]) Inhale 2 puffs every 6 (six) hours [...] upper arm 10/14/2013 Fracture of humerus 10/14/2013 Social History Tobacco Use Types Packs/Day Years Used Date Smoking Tobacco: Former Cigarettes 1 50 1 2017 Smokeless Tobacco: Never Sex and Gender Information Value Date Recorded Sex Assigned at Not on file Legal Sex Male 9:52 AM COMMERCIAL ENERGY AUDITOR Gender Identity Not on file Sexual Orientation Not on file Occupation Industry Job Start Date Job End Date disabled Not on file Not on file Not on file Last Filed Vital Signs Vital Sign Reading Time Taken Comments Blood Pressure 117/66 09/07/2024 1:50 PM COMMERCIAL ENERGY AUDITOR Pulse 54 09/07/2024 1:50 PM COMMERCIAL ENERGY AUDITOR Temperature 36.5 C (97.7 F) 04/04/2016 3:05 PM CDT Respiratory Rate 18 09/07/2024 1:50 PM COMMERCIAL ENERGY AUDITOR Oxygen Saturation 98% 09/07/2024 1:50 PM COMMERCIAL ENERGY AUDITOR Inhaled Oxygen Concentration - - Weight 92.1 kg (203 lb) 09/07/2024 1:50 PM COMMERCIAL ENERGY AUDITOR Height 185.4 cm (6' 1 ) 09/07/2024 1:50 PM COMMERCIAL ENERGY AUDITOR Body Mass Index 26.78 09/07/2024 1:50 PM COMMERCIAL ENERGY AUDITOR Plan of Treatment Not on file Procedures Procedure Name Priority Date/Time Associated Diagnosis [...] signed by Alessio RICHARD T: Report ID: [id number] Reading Location: [place] [address] Procedure Note Alessio Vernon MD - 11/13/2024 [...] signed by Alessio RICHARD T: Report ID: [id number] Reading Location: [place] [address] Stacia Anthony MD IM CT PROCEDURES Final Resul t * Pulmonary Function Test - (11/05/2024 2:32 PM CDT) FVC POST 4.41 L 11/05/2024 2:23 PM CDT [facility] FEV1 POST 3.16 L 11/05/2024 2:23 PM CDT [facility] [id number] 71.54 % 11/05/2024 2:23 PM CDT [facility] IZH12-83% POST 2.15 L/s 11/05/2024 2:23 PM CDT [facility] PEF POST 9.19 L/s 11/05/2024 2:23 PM CDT [facility] DLCOc SB 13.25 ml/(min*mm Hg) 11/05/2024 2:23 PM CDT [facility] DLCO/VA PRE 2.44 ml/(min*mm Hg*L) 11/05/2024 2:23 PM CDT [facility] VA 5.44 L 11/05/2024 2:23 PM CDT [facility] TLC PRE 6.07 L 11/05/2024 2:23 PM CDT [facility] VC PRE 4.79 L 11/05/2024 2:23 PM CDT [facility] IC PRE 4.01 L 11/05/2024 2:23 PM CDT [facility] FRC PL PRE 2.44 L 11/05/2024 2:23 PM CDT [facility] ERV PRE 1.16 L 11/05/2024 2:23 PM CDT [facility] RV PRE 1.28 L 11/05/2024 2:23 PM CDT [facility] RAW PRE 3.00 cmH2O*s/L 11/05/2024 2:23 PM CDT [facility] VTG 3.89 L 11/05/2024 2:23 PM CDT [facility] FVC PRE 4.41 L 11/05/2024 2:23 PM CDT [facility] FEV1 PRE 3.21 L 11/05/2024 2:23 PM CDT [facility] [id number] 72.81 % 11/05/2024 2:23 PM CDT [facility] ZBO01-09% PRE 2.24 L/s 11/05/2024 2:23 PM CDT [facility] PEF PRE 9.09 L/s 11/05/2024 2:23 PM T [facility] Anatomical Region Laterality Modality PFT 11/05/2024 1:24 PM CDT Impressions 11/09/2024 1:31 PM CDT 1. Spirometry is normal. 2. Lung volumes demonstrate mild restrictive ventilatory defect. 3. Severe diffusion impairment. 4. 6 minute walk test performed. Patient walked 920 ft. Patient maintained oxygen saturation 96-99%. Patient did not require supplemental oxygen with exertion. Clinical correlation is advised. Electronically signed by Tez Mendoza, Pulmonary & Critical Care Narrative 11/09/2024 1:31 [...] Final Result from Last 3 Months Insurance [facility] MEDICARE ADVANTAGE Care Teams Forklift Truck Operator Relationship Specialty Start Date End Date Raya Lozoya PA [address] [place] [address] PCP - General Physician Library Director 01/09/22
--- NOTE | 2024-12-02 18:13 | ED_ITS ---
HPI - Male Genitourinary General Chief complaint: Urogenital-Male <Aislinn Connolly PA-C - Last Filed: 12/02/24 20:46> Stated complaint: urinary retention <Aislinn Connolly PA-C - Last Filed: 12/02/24 20:46> Time Seen by Provider: 12/02/24 17:09 <Aislinn Connolly PA-C - Last Filed: 12/02/24 20:46> History of Present Illness HPI Narrative: 69-year-old male with history of dyslipidemia, AFib, COPD presents to the emergency department for urinary retention for the past few days. Patient states he has been taking tamsulosin 0.4 mg for about a year and recently increases does per his PCP. About 3 weeks ago he developed dysuria, contacted his PCP and was started on antibiotics which she took for 5 days with improvement. States the dysuria began again about a week ago. Over the past couple of days the patient states he has been unable to empty his bladder and has been troubling when he attempts to urinate. He contacted his PCP and was advised to come to the ED. he reports a history of prostate issues but has never seen a urologist or required a catheterization. He is reporting pain to the suprapubic region and right flank which is new over the past few days. Also endorsing nausea and vomiting over the past 2 days as well as decreased p.o. intake. He denies hematuria, history of kidney stones, fever. Also states that he has had to strain to have a bowel movement. He is not taking any laxatives or stool softeners [id number]. His last bowel movement was today and hard. No prior abdominal surgeries. <Aislinn Connolly PA-C - Last Filed: 12/02/24 20:46> Related Data Home medications: Home Medications ?Medication ?Instructions ?Recorded ?Confirmed ?Last Taken ?Type ergocalciferol (vitamin D2) 1,250 1,250 mcg PO WEEKLY 02/09/21 12/02/24 11/28/24 History mcg (50,000 unit) capsule fluticasone propionate 50 1 spray intranasal DAILY 02/09/21 12/02/24 Unknown History mcg/actuation nasal spray,suspension (Allergy Relief (fluticasone)) nitroglycerin 0.4 mg sublingual 0.4 mg sublingual Q5M PRN Chest 02/09/21 12/02/24 Unknown History tablet Pain vitamin B12 0.5 mg-folic acid 1 mg 1 tablet PO DAILY 02/09/21 12/02/24 11/30/24 History tablet aspirin 325 mg tablet,delayed 325 mg PO DAILY 12/20/21 12/02/24 11/30/24 History release atorvastatin 40 mg tablet 40 mg PO DAILY 12/27/21 12/02/24 11/30/24 History tamsulosin 0.4 mg capsule 0.4 mg PO DAILY 02/18/23 12/02/24 11/30/24 History albuterol sulfate 90 mcg/actuation 2 puff inhalation Q6H PRN 12/02/24 12/02/24 Unknown History aerosol inhaler shortness of breath or wheezing budesonide-formoterol HFA 160 2 puff inhalation DAILY 12/02/24 12/02/24 Unknown History mcg-4.5 mcg/actuation aerosol inhaler (Symbicort) fluticasone propionate 115 2 puff inhalation DAILY 12/02/24 12/02/24 Unknown History mcg-salmeterol 21 mcg/actuation HFA inhaler (Advair HFA) <Aislinn Connolly PA-C - Last Filed: 12/02/24 20:46> Allergies/Adverse reactions: Allergies Allergy/AdvReac Type Severity Reaction Status Date / Time No Known Allergies Allergy Verified 12/02/24 22:21 <Aislinn Connolly PA-C - Last Filed: 12/02/24 20:46> Review of Systems 2 Review of Systems: All systems reviewed & are unremarkable except as noted in HPI and below <Aislinn Connolly PA-C - Last Filed: 12/02/24 20:46> [facility] Past Medical History Medical History: Medical History Emphysema lung Acute arthritis Rheumatoid osteoperiostitis Afib <Aislinn Connolly PA-C - Last Filed: 12/02/24 20:46> Surgical History Surgical History: Surgical History History of surgery on arm History of shoulder surgery <Aislinn Connolly PA-C - Last Filed: 12/02/24 20:46> Family History Family History: Family History Sibling Heart disease Skin cancer <Aislinn Connolly PA-C - Last Filed: 12/02/24 20:46> Social History Social History: Social History Smoking status: Former smoker Tobacco type: cigarettes Smoking end date: 08/12/16 Alcohol intake: former Drinks per week: 4 Substance use: current Substance use type: marijuana Other substance usage details: daily use Do You Feel Safe in your Home?: Yes Lack of Transportation: No Lack of Food: Never True Current Housing: I Have Housing Concerned About Future Housing: No Difficulty Paying Gas/Electric Bills: No Difficulty Paying for Meds: No Currently Unemployed: No Education: High School Diploma/GED Difficulty w/ Childcare or Family Care: No Living arrangements: alone Spiritual care concerns: No <Aislinn Connolly PA-C - Last Filed: 12/02/24 20:46> Exam 2 Narrative: GENERAL: Well-appearing, well-nourished, and in no acute distress. HEAD: Normocephalic, atraumatic. EYES: EOMI. ENT: Nares clear, no rhinorrhea or epistaxis. Mucous membranes dry. NECK: Supple. CHEST: Clear to auscultation. No respiratory distress. HEART: Regular rate and rhythm. No murmur heard. Normal peripheral pulses. ABDOMEN: Normoactive bowel sounds. Abdomen soft with mild tenderness to the suprapubic region, right CVA tenderness. No rebound or rigidity. EXTREMITIES: Normal range of motion. No edema. SKIN: Warm, dry, no rash. NEURO: No focal deficits. Alert and oriented x3 <Aislinn Connolly PA-C - Last Filed: 12/02/24 20:46> Course [employer]/PA Physician Supervision I agree with midlevel documentation; I performed the medical decision making component of this evaluation. I had independent [id number] time with the patient and performed my own independent evaluation and assessment. < Harpreet Tian MD - Last Filed: 12/03/24 20:49> Vital Signs Vital signs: Vital Signs Temperature 36.4 C L 12/02/24 16:08 Pulse Rate 88 12/02/24 16:08 Respiratory Rate 16 12/02/24 16:08 Blood Pressure 143/102 H 12/02/24 16:08 Pulse Oximetry 97 12/02/24 16:08 Temperature 36.5 C 12/03/24 20:00 Pulse Rate 71 12/03/24 20:35 Respiratory Rate 20 12/03/24 20:35 Blood Pressure 142/94 H 12/03/24 20:00 Pulse Oximetry 95 12/03/24 20:35 Oxygen Delivery High Flow Nasal Cannula 12/03/24 20:35 Oxygen Flow Rate 40 12/03/24 20:35 Fraction of Inspired Oxygen 5 12/03/24 20:35 <Aislinn Connolly PA-C - Last Filed: 12/02/24 20:46> Vital Signs Temperature 36.4 C L 12/02/24 16:08 Pulse Rate 88 12/02/24 16:08 Respiratory Rate 16 12/02/24 16:08 Blood Pressure 143/102 H 12/02/24 16:08 Pulse Oximetry 97 12/02/24 16:08 Temperature 36.5 C 12/03/24 20:00 Pulse Rate 71 12/03/24 20:35 Respiratory Rate 20 12/03/24 20:35 Blood Pressure 142/94 H 12/03/24 20:00 Pulse Oximetry 95 12/03/24 20:35 Oxygen Delivery High Flow Nasal Cannula 12/03/24 20:35 Oxygen Flow Rate 40 12/03/24 20:35 Fraction of Inspired Oxygen 5 12/03/24 20:35 <Harpreet Tian MD - Last Filed: 12/03/24 20:49> MDM - Male Genitourinary MDM Narrative Medical decision making narrative: 69-year-old male with a PMHx of Afib, dyslipidemia, systolic dysfunction presents to emergency department for urinary retention over the past few days, dysuria intermittently for the past couple of weeks. He has developed suprapubic pain, right flank pain, nausea and vomiting. Triage vitals with hypertension of 143/102, otherwise unremarkable. Patient is afebrile and nontoxic appearing. Exam is significant for tenderness to the suprapubic region and right CVA. Patient does appear dehydrated on exam, fluids provided. Bladder scan performed by nursing staff shows 133 cc of urine in the bladder. Patient became tachycardic while in the ED to 120bpm. EKG obtained which shows AFib with RVR, no ischemic changes. Patient placed on ekg monitor tech and given 10 mg of diltiazem with appropriate rate control at 80 bpm. Blood pressure remained stable. CBC without leukocytosis. Chemistries remarkable for acute renal failure with a creatinine of 12.77, most recent chemistries for comparison or November 2022 which showed a creatinine of 1.4. Patient's BUN is 89, bicarb is 16, anion gap of 19 and potassium of 5.2. Phosphorus elevated at 8.[address] Abd/pelvis shows: IMPRESSION: Bilateral hydroureteronephrosis without an obstructing calculus identified. Abnormal mural thickening within the posterior wall of the bladder for which a malignancy is suspected and for which direct visualization is recommended. Pt updated on results. Given CT findings, Myers catheter placed for decompression with 100cc urine output. UA indicative of UTI. Patient was started on Rocephin in the ED. Discuss with Urology, Dr. Foster, who reports pt will likely need nephrostomy tubes placed. Agrees to consult. Discussed with nephrology, Dr. Perez, who agrees to IV fluids given pt appears to be volume down and no evidence of volume overload. Agrees to consult. Discussed with hospitalist, Dr. Bardales who agrees to admission. Advises IV fluids at 150cc/hr and repeat BMP and mag in 3 hours. Second liter of fluids provided in the ED. Pt's heart rate did increase again to the 130bpm showing AFib on the monitor. 5 mg of IV metoprolol provided with improvement of rate to 100bpm. Pt admitted to IMU in stable condition. <Aislinn Connolly PA-C - Last Filed: 12/02/24 20:46> Lab Data Result diagrams: 12/03/24 04:32 12/03/24 16:40 <Aislinn Connolly PA-C - Last Filed: 12/02/24 20:46> Labs: Lab Results 12/02/24 12/02/24 Range/Units 18:14 20:11 WBC 8.7 (4.5-10.0) K/mm3 RBC 4.15 L (4.6-6.20) M/mm3 Hgb 13.9 L D (14.0-18.0) g/dL Hct 42.4 (42.0-52.0) % MCV 102.2 H (80-100) fl MCH 33.5 (26-34) pg MCHC 32.8 (32-36) g/dl RDW 13.4 (11.5-14.5) % Plt Count 197 (150-375) k/mm3 MPV 11.2 H (7.4-10.4) fl Immature Gran % (Auto) 0.6 H (0-0.5) % Neut % (Auto) 73.0 (45.5-73.1) % Lymph % (Auto) 13.6 L (18.3-44.2) % [place] % (Auto) 11.5 H (2.6-8.5) % Eos % (Auto) 1.0 (0-4.4) % Baso % (Auto) 0.3 (0.2-1.2) % Lymph # (Auto) 1.18 (0.9-3.2) K/mm3 [place] # (Auto) 1.0 H (0.1-0.6) K/mm3 Eos # (Auto) 0.1 (0-0.3) K/mm3 Baso # (Auto) 0.0 (0.0-0.1) K/mm3 Abs Immat Gran (auto) 0.05 H (0.00-0.031) K/mm3 Absolute Neuts (auto) 6.3 (1.3-6.7) K/mm3 Absolute Nucleated RBC 0.000 (0.0-0.012) K/mm3 Nucleated RBC % 0.0 (0.0-0.2) % Sodium 138 (137-145) mmol/L Potassium 5.2 H (3.4-5.0) mmol/L Chloride 103 (98-107) mmol/L Carbon Dioxide 16 L (22-30) mmol/L Anion Gap 19 H (4-12) mmol/L BUN 89 H D (9-20) mg/dL Creatinine 12.77 H (0.7-1.3) mg/dL Estim Creat Clear Calc 6 ml/min Estimated GFR 4 L (59 - ) Glucose 93 (65-110) mg/dL Calcium 8.7 (8.4-10.2) mg/dL Phosphorus 8.3 H (2.5-4.5) mg/dL Magnesium 2.6 H (1.6-2.3) mg/dL Total Bilirubin 0.3 (0.2-1.3) mg/dL AST 14 L (17-59) U/L ALT 14 (6-50) U/L Alkaline Phosphatase 93 (38-126) U/L Total Protein 8.0 (6.3-8.2) g/dL Albumin 3.8 (3.5-5.1) g/dL Lipase 115 (23-300) U/L Urine Color Yellow (Yellow) Urine Appearance Cloudy H (Clear) Urine pH 6.5 (5.0-9.0) Ur Specific [place] 1.011 (1.001-1.035) Urine Protein 3+ H (Negative) mg/dL Urine Glucose (UA) Negative (Negative) mg/dL Urine Ketones Negative (Negative) mg/dL Ur Blood (Man) 2+ H (Negative) Urine Nitrate Negative (Negative) Urine Bilirubin Negative (Negative) Urine Urobilinogen 0.2 (<2.0) mg/dL Add Ur Microanalysis Reviewed Leukocyte Esterase Rfl 2+ H (Negative) MANUEL/UL Urine RBC 51-100 H (0-2) /hpf Urine WBC 51-100 H (0-3) /hpf Ur Squamous Epith Cells Moderate (Few) /hpf Urine Bacteria None seen /hpf Urine Casts 0-2 <Aislinn Connolly PA-C - Last Filed: 12/02/24 20:46> Lab Results 12/02/24 12/02/24 Range/Units 18:14 20:11 WBC 8.7 (4.5-10.0) K/mm3 RBC 4.15 L (4.6-6.20) M/mm3 Hgb 13.9 L D (14.0-18.0) g/dL Hct 42.4 (42.0-52.0) % MCV 102.2 H (80-100) fl MCH 33.5 (26-34) pg MCHC 32.8 (32-36) g/dl RDW 13.4 (11.5-14.5) % Plt Count 197 (150-375) k/mm3 MPV 11.2 H (7.4-10.4) fl Immature Gran % (Auto) 0.6 H (0-0.5) % Neut % (Auto) 73.0 (45.5-73.1) % Lymph % (Auto) 13.6 L (18.3-44.2) % [place] % (Auto) 11.5 H (2.6-8.5) % Eos % (Auto) 1.0 (0-4.4) % Baso % (Auto) 0.3 (0.2-1.2) % Lymph # (Auto) 1.18 (0.9-3.2) K/mm3 [place] # (Auto) 1.0 H (0.1-0.6) K/mm3 Eos # (Auto) 0.1 (0-0.3) K/mm3 Baso # (Auto) 0.0 (0.0-0.1) K/mm3 Abs Immat Gran (auto) 0.05 H (0.00-0.031) K/mm3 Absolute Neuts (auto) 6.3 (1.3-6.7) K/mm3 Absolute Nucleated RBC 0.000 (0.0-0.012) K/mm3 Nucleated RBC % 0.0 (0.0-0.2) % Sodium 138 (137-145) mmol/L Potassium 5.2 H (3.4-5.0) mmol/L Chloride 103 (98-107) mmol/L Carbon Dioxide 16 L (22-30) mmol/L Anion Gap 19 H (4-12) mmol/L BUN 89 H D (9-20) mg/dL Creatinine 12.77 H (0.7-1.3) mg/dL Estim Creat Clear Calc 6 ml/min Estimated GFR 4 L (59 - ) Glucose 93 (65-110) mg/dL Calcium 8.7 (8.4-10.2) mg/dL Phosphorus 8.3 H (2.5-4.5) mg/dL Magnesium 2.6 H (1.6-2.3) mg/dL Total Bilirubin 0.3 (0.2-1.3) mg/dL AST 14 L (17-59) U/L ALT 14 (6-50) U/L Alkaline Phosphatase 93 (38-126) U/L Total Protein 8.0 (6.3-8.2) g/dL Albumin 3.8 (3.5-5.1) g/dL Lipase 115 (23-300) U/L Urine Color Yellow (Yellow) Urine Appearance Cloudy H (Clear) Urine pH 6.5 (5.0-9.0) Ur Specific [place] 1.011 (1.001-1.035) Urine Protein 3+ H (Negative) mg/dL Urine Glucose (UA) Negative (Negative) mg/dL Urine Ketones Negative (Negative) mg/dL Ur Blood (Man) 2+ H (Negative) Urine Nitrate Negative (Negative) Urine Bilirubin Negative (Negative) Urine Urobilinogen 0.2 (<2.0) mg/dL Add Ur Microanalysis Reviewed Leukocyte Esterase Rfl 2+ H (Negative) MANUEL/UL Urine RBC 51-100 H (0-2) /hpf Urine WBC 51-100 H (0-3) /hpf Ur Squamous Epith Cells Moderate (Few) /hpf Urine Bacteria None seen /hpf Urine Casts 0-2 <Harpreet Tian MD - Last Filed: 12/03/24 20:49> Critical Care Time Critical Care Time Critical Care Time: Yes <Harpreet Tian MD - Last Filed: 12/03/24 20:49> Total Critical Care Time: 60 <Harpreet Tian MD - Last Filed: 12/03/24 20:49> Discharge Plan Discharge Clinical Impression: Acute hyperkalemia, Hypermagnesemia, Hyperphosphatemia, Hydroureteronephrosis, Bladder wall thickening, Atrial fibrillation with RVR, Acute UTI Acute renal failure Qualifiers: Acute renal failure type: unspecified Qualified Code(s): N17.9 - Acute kidney failure, unspecified <Aislinn Connolly PA-C - Last Filed: 12/02/24 20:46> Patient Disposition: Still a Patient <Aislinn Connolly PA-C - Last Filed: 12/02/24 20:46> Condition: Stable <Aislinn Connolly PA-C - Last Filed: 12/02/24 20:46>
[2024-12-02] MEDS: SODIUM CHLORIDE 0.9% IV 1,000 ML 999 ML IV CONT ×2 (18:17→20:26)
[2024-12-02 18:21] LABS: Basophils Percent Auto 0.3 % (0.2-1.2); Eosinophils Absolute Auto 0.1 K/mm3 (0-0.3); Hematocrit 42.4 % (42.0-52.0); Hemoglobin 13.9 g/dL (14.0-18.0); Immature Granulocyte Absolute 0.05 K/mm3 (0.00-0.031); Immature Granulocyte Percent A 0.6 % (0-0.5); Lymphocytes Absolute Auto 1.18 K/mm3 (0.9-3.2); Lymphocytes Percent Auto 13.6 % (18.3-44.2); Mean Corpuscular HGB Conc 32.8 g/dl (32-36); Mean Corpuscular Hemoglobin 33.5 pg (26-34); Mean Corpuscular Volume 102.2 fl (80-100); Mean Platelet Volume 11.2 fl (7.4-10.4); Monocytes Percent Auto 11.5 % (2.6-8.5); Neutrophils Absolute Auto 6.3 K/mm3 (1.3-6.7); Platelet Count Result 197 k/mm3 (150-375); Red Blood Count 4.15 M/mm3 (4.6-6.20); Red Cell Distribution Width 13.4 % (11.5-14.5); White Blood Count 8.7 K/mm3 (4.5-10.0)
[2024-12-02 18:31] LABS: Alanine Aminotransferase 14 U/L (6-50); Albumin Level 3.8 g/dL (3.5-5.1); Alkaline Phosphatase 93 U/L (38-126); Anion Gap 19 mmol/L (4-12); Aspartate Amino Transferase 14 U/L (17-59); Bilirubin,Total 0.3 mg/dL (0.2-1.3); Blood Urea Nitrogen 89 mg/dL (9-20); Calcium 8.7 mg/dL (8.4-10.2); Carbon Dioxide 16 mmol/L (22-30); Chloride 103 mmol/L (98-107); Estimated CRCL calculation 6 ml/min; Estimated Glomerular Filt Rate 4; Glucose 93 mg/dL (65-110); Lipase 115 U/L (23-300); Potassium 5.2 mmol/L (3.4-5.0); Sodium 138 mmol/L (137-145)
--- NOTE | 2024-12-02 18:32 | ECG_ITS ---
Test Date: 2024-12-02 18:40:46 Measurements Intervals [place] Rate: 116 P: 0 AL: 0 QRS: -10 QRSD: 82 T: 26 QT: 298 QTc: 415 Interpretive Statements ATRIAL FIBRILLATION WITH RAPID VENTRICULAR RESPONSE LOW QRS VOLTAGE IN LIMB LEADS BASELINE ARTIFACT- I, II ABNORMAL ECG No previous ECG available for comparison Electronically Signed On 12-02-2024 20:27:48 CDT by Jorge Alberto Carlson D.O.
[2024-12-02] MEDS: dilTIAZem HCl INJ 25 MG/5 ML VIAL 10 MG IV PUSH ×2 (18:51→21:51)
[2024-12-02 18:52] LABS: Magnesium 2.6 mg/dL (1.6-2.3); Phosphorus 8.3 mg/dL (2.5-4.5)
[2024-12-02] MEDS: METOPROLOL TARTRATE INJ 5 MG/5 ML VIAL IV PUSH ×2 (20:26→23:20)
[2024-12-02 20:33] LABS: Add Urine Microscopic? YES; Appearance Urine Cloudy (Clear); Bacteria Urine None Seen /hpf; Bilirubin Urine Negative (Negative); Blood Urine 2+ (Negative); Color Urine Yellow (Yellow); Glucose Urine UA Negative (Negative); Ketones Urine Negative (Negative); Leukocyte Esterase Ur 2+ LEU/UL (Negative); Need Manual Microscopic Reviewed; Nitrate Urine Negative (Negative); Non Pathogenic Casts 0-2; Protein Urine 3+ mg/dL (Negative); RBC Urine 51-100 /hpf (0-2); Specific Grav Ur 1.011 (1.001-1.035); Squamous Epithelial Cell Urine Moderate /hpf (Few); Urobilinogen Urine 0.2 mg/dL (<2.0); WBC Urine 51-100 /hpf (0-3); pH Urine 6.5 (5.0-9.0)
--- NOTE | 2024-12-02 20:55 | PM.IMHP ---
H&P: HPI History of Present Illness Date/Time: 12/02/24 20:55 Chief Complaint: Urinary retention Narrative: This is a pleasant 69-year-old male with a history of dyslipidemia, AFib, COPD, BPH, prior tobacco abuse, marijuana use, who presents with the complaint of urinary retention for a few days. He has been taking tamsulosin and it was recently increased per his PCP. For about 3 weeks ago he developed dysuria and he was taking antibiotics with improvement of his dysuria. The dysuria then returned about a week prior to admission. Over the past couple days the patient has had difficulty urinating and emptying his bladder. He was advised to report to the ER. He also reports suprapubic pressure slightly to the right as well as right flank pain. He has had nausea and vomiting and decreased p.o. intake. Denies hematuria, fever, shortness of breath, chest pain. On the day of admission on 12/01/2024 at [facility] he was found to have a respiratory rate 13, blood pressure 135/87, temperature 97.5? F, saturating 94% on room air. He was in atrial fibrillation with RVR in the 120s to 140s. WBC 8.7, hemoglobin 13.9, potassium 5.2, bicarb 16, anion gap 19, BUN 89, serum creatinine 12.7, phosphorus 8.3, magnesium 2.6, urinalysis cloudy, 2+ blood, leukocyte esterase 2+, WBC 50 1-100, moderate squamous cells identified, CT abdomen and pelvis without contrast demonstrated bilateral hydroureteronephrosis without an obstructing calculus identified, abnormal neuro mural thickening within the posterior wall of the bladder for which malignancy is suspected. He was given 2 L of normal saline, ceftriaxone 1 g IV x1, diltiazem 10 mg IV push x1, metoprolol tartrate 5 mg IV push x1. After initial treatment patient reported feeling better with less pain. Review of Systems Review of Systems: All systems reviewed & are unremarkable except as noted in HPI and below (HPI) [facility] Past Medical History Medical History Emphysema lung Acute arthritis Rheumatoid osteoperiostitis Afib Surgical History Surgical History History of surgery on arm History of shoulder surgery Family History Family History Sibling Heart disease Skin cancer Social History Social History Smoking status: Former smoker Tobacco type: cigarettes Alcohol intake: never Substance use: current Substance use type: marijuana Other substance usage details: daily use Do You Feel Safe in your Home?: Yes Lack of Transportation: No Lack of Food: Never True Current Housing: I Have Housing Concerned About Future Housing: No Difficulty Paying Gas/Electric Bills: No Difficulty Paying for Meds: No Currently Unemployed: No Education: High School Diploma/GED Difficulty w/ Childcare or Family Care: No Living arrangements: alone Spiritual care concerns: No Meds Home Medications and Allergies Home Medications ?Medication ?Instructions ?Recorded ?Confirmed ?Type albuterol sulfate [Ventolin HFA] 1 inh inhalation Q4H PRN Shortness 02/09/21 09/02/24 History Of Breath ergocalciferol (vitamin D2) 1,250 1,250 mcg PO WEEKLY 02/09/21 09/02/24 History mcg (50,000 unit) capsule fluticasone propionate 50 1 spray intranasal DAILY 02/09/21 09/02/24 History mcg/actuation nasal spray,suspension (Allergy Relief (fluticasone)) nitroglycerin 0.4 mg sublingual 0.4 mg sublingual Q5M PRN Chest 02/09/21 09/02/24 History tablet Pain vitamin B12 0.5 mg-folic acid 1 mg 1 tablet PO DAILY 02/09/21 09/02/24 History tablet aspirin 325 mg tablet,delayed 325 mg PO DAILY 12/20/21 09/02/24 History release atorvastatin 40 mg tablet 40 mg PO DAILY 12/27/21 09/02/24 History sodium,potassium,mag sulfates 17.5 See Rx Instructions PO .COMPLEX 02/04/23 09/02/24 Rx gram-3.13 gram-1.6 gram oral soln #354 mL (Suprep Bowel Prep Kit) tamsulosin 0.4 mg capsule 0.4 mg PO DAILY 02/18/23 09/02/24 History metoprolol succinate 50 mg 50 mg PO DAILY #30 tabs 07/01/24 09/02/24 Rx tablet,extended release 24 hr Allergies Allergy/AdvReac Type Severity Reaction Status Date / Time No Known Allergies Allergy Verified 09/02/24 09:56 Vital Signs Vital Signs - 24 hr 12/02/24 16:08 12/02/24 18:43 12/02/24 18:51 Temperature 97.5 F L Pulse Rate 88 114 H 105 H Respiratory Rate 16 13 Blood Pressure 143/102 H 135/87 Pulse Oximetry 97 99 12/02/24 20:26 12/02/24 20:33 Temperature Pulse Rate 132 H 102 H Respiratory Rate 15 Blood Pressure 129/80 Pulse Oximetry 97 Exam Const: General: comfortable and no acute distress Other: A&O x3 HENMT: Mouth: Yes dry mucous membranes Eyes: Pupils: Equal, round and reactive pupils present Neck: Neck: supple Resp: Effort & Inspection: normal respiratory effort Auscultation: clear to auscultation bilaterally Cardio: Rate: regular rate Rhythm: regular rhythm GI: Inspection: non-distended GI Palp: Yes Soft to palpation and No Tenderness to palpation present (GI) Auscultation: normal bowel sounds : General: Yes bladder normal to palpation Urinary Catheter: Urinary Catheter: patent and draining and urine cloudy Neuro: Motor exam (neuro): 5/5 motor strength present throughout Sensory Exam: normal sensation Extrem: General: edema (Trivial pitting edema at the bilateral lower extremities below the knees) Psych: Mental Status: mental status grossly normal H&P: Results Labs Labs: Short CBC 12/02/24 Range/Units 18:14 WBC 8.7 (4.5-10.0) K/mm3 Hgb 13.9 L D (14.0-18.0) g/dL Hct 42.4 (42.0-52.0) % Plt Count 197 (150-375) k/mm3 BMP 12/02/24 18:14 Sodium 138 Potassium 5.2 H Chloride 103 Carbon Dioxide 16 L BUN 89 H D Creatinine 12.77 H Glucose 93 Calcium 8.7 Liver Function 12/02/24 Range/Units 18:14 Total Bilirubin 0.3 (0.2-1.3) mg/dL AST 14 L (17-59) U/L ALT 14 (6-50) U/L Alkaline Phosphatase 93 (38-126) U/L Albumin 3.8 (3.5-5.1) g/dL Urine 12/02/24 Range/Units 20:11 Urine Color Yellow (Yellow) Urine Appearance Cloudy H (Clear) Urine pH 6.5 (5.0-9.0) Ur Specific [place] 1.011 (1.001-1.035) Urine Protein 3+ H (Negative) mg/dL Urine Glucose (UA) Negative (Negative) mg/dL Assessment and Plan Assessment and plan (1) Atrial fibrillation with RVR: Code(s): I48.91 - Unspecified atrial fibrillation Status: Acute (2) Hydroureteronephrosis: Code(s): N13.30 - Unspecified hydronephrosis Status: Acute (3) Acute hyperkalemia: Code(s): E87.5 - Hyperkalemia Status: Acute (4) Acute renal failure: Qualifiers: Acute renal failure type: unspecified Qualified Code(s): N17.9 - Acute kidney failure, unspecified Code(s): N17.9 - Acute kidney failure, unspecified Status: Acute (5) Bladder wall thickening: Code(s): N32.89 - Other specified disorders of bladder Status: Acute (6) Acute UTI: Code(s): N39.0 - Urinary tract infection, site not specified Status: Acute Plan This is a pleasant 69-year-old male with a history of dyslipidemia, AFib, COPD, BPH, prior tobacco abuse, marijuana use, who presents with the complaint of urinary retention for a few days. He has been taking tamsulosin and it was recently increased per his PCP. For about 3 weeks ago he developed dysuria and he was taking antibiotics with improvement of his dysuria. The dysuria then returned about a week prior to admission. Over the past couple days the patient has had difficulty urinating and emptying his bladder. He was advised to report to the ER. He also reports suprapubic pressure slightly to the right as well as right flank pain. He has had nausea and vomiting and decreased p.o. intake. Denies hematuria, fever, shortness of breath, chest pain. On the day of admission on 12/01/2024 at [place] [facility] he was found to have a respiratory rate 13, blood pressure 135/87, temperature 97.5? F, saturating 94% on room air. He was in atrial fibrillation with RVR in the 120s to 140s. WBC 8.7, hemoglobin 13.9, potassium 5.2, bicarb 16, anion gap 19, BUN 89, serum creatinine 12.7, phosphorus 8.3, magnesium 2.6, urinalysis cloudy, 2+ blood, leukocyte esterase 2+, WBC 50 1-100, moderate squamous cells identified, CT abdomen and pelvis without contrast demonstrated bilateral hydroureteronephrosis without an obstructing calculus identified, abnormal neuro mural thickening within the posterior wall of the bladder for which malignancy is suspected. He was given 2 L of normal saline, ceftriaxone 1 g IV x1, diltiazem 10 mg IV push x1, metoprolol tartrate 5 mg IV push x1. After initial treatment patient reported feeling better with less pain. ----- Continue fluids at 150 cc/hour. Nephrology has been consulted from the ER. Urinary catheter has been placed. Urine culture pending. Urology has been notified. He will be NPO after midnight. We will trend the renal function. Monitor strict intake and output. Daily weights. Check lactic acid. Patient will be admitted to IMU with telemetry monitoring. ----- Heart healthy and renal dialysis diet. NPO midnight. Normal saline at 150 cc/hour. Patient wishes to be full code. Daily weights with strict intake and output. Nephrology and Urology consultations pending. Hospitalist [facility] Advance Care Plan I have confirmed that the patient's Advanced Care Plan is present, code status is documented, or surrogate decision maker is listed in patient medical record.: Yes Medication Reconciliation I have utilized all available resources to obtain, update and review the patients current medications (includes all prescriptions, OTC, herbals, cannabis, and nutritional supplements).: Yes
[2024-12-02 21:01] LABS: Lactic Acid Reflex 1.2 mmol/L (0.7-2.0)
--- NOTE | 2024-12-02 22:15 | PC.NURSE ---
This patient, Stanislav Cho, was admitted to IMU Room 205-01. Patient/family oriented to hospital policies and general routines including ID bracelet, bed and alarms, visiting hours, pain management, procedures, bathroom and other care routines, personal items, smoking policy, room service/diet, and visiting hours. Information on how to activate the Rapid Response Team has been discussed. Patient/Family are encouraged to report perceived risks to care and to ask questions if they do not understand what they are told or what they should do.
[2024-12-02] MEDS: SODIUM CHLORIDE 0.9% IV 1,000 ML 150 ML IV CONT (22:59)
[2024-12-02] MEDS: dilTIAZem 100 MG/100 ML 100 MG/100 ML BAG IV CONT (23:19)
[2024-12-03] VITALS (27 sets, daily range): BP systolic 117–142; BP diastolic 70–99; PULSE 71–126; RESP 12–20; TEMP 36.2–36.7; O2SAT 90–100
--- NOTE | 2024-12-03 | ECHO_ITS ---
Patient Info Name: Stanislav Cho Age: 69 years : 1955 Gender: Male Ht: 73 in Wt: 199 lbs BSA: 2.17 m2 HR: 102 bpm BP: 123 / 73 mmHg Heart Rhythm: Atrial Fibrillation Technical Quality: Fair Exam Date: 12/03/2024 3:25 PM Exam Location: Echo Lab Patient Status: Inpatient Admit Date: 12/02/2024 Staff Ordering Physician: Jorge Alberto Carlson DO [employer]mill Supervisor: Rea Stroud RDCS Attending Provider: Angie Bardales MD Referring Physician: Aldo CLANCY; Exam Type: CA echo doppler color flow Study Info Indications - Systolic disfunction Complete two-dimensional, color flow and Doppler transthoracic echocardiogram is performed. Summary 1. Complete two-dimensional, color flow and Doppler transthoracic echocardiogram is performed. 2. Left ventricular chamber dimension is moderately enlarged. 3. Left ventricular systolic function is normal, estimated at 55-60%. 4. The left ventricular diastolic function is normal. 5. E/e' 5 is not elevated. 6. Atrial fibrillation. 7. Left atrial chamber dimension is severely enlarged. 8. Right atrial chamber dimension is severely enlarged. 9. The mitral valve has mildly calcified annulus. 10. There is mild mitral valve regurgitation. 11. Mild pulmonary hypertension, estimated pulmonary arterial systolic pressure is 42 mmHg. Left Ventricle E/e' 5 is not elevated. Atrial fibrillation. Left ventricular chamber dimension is moderately enlarged. Left ventricular systolic function is normal, estimated at 55-60%. The left ventricular diastolic function is normal. Right Ventricle Right ventricular systolic function is normal and with normal TAPSE 2.0 cm. Right ventricular chamber dimension is normal. Left Atria Left atrial chamber dimension is severely enlarged. Right Atria Right atrial chamber dimension is severely enlarged. Aortic Valve The aortic valve is trileaflet. There is no aortic valve stenosis. There is no aortic valve regurgitation. Pulmonic Valve There is no pulmonic regurgitation. Mitral Valve The mitral valve has mildly calcified annulus. There is no mitral valve stenosis. There is mild mitral valve regurgitation. Tricuspid Valve There is no tricuspid valve regurgitation. Mild pulmonary hypertension, estimated pulmonary arterial systolic pressure is 42 mmHg. Pericardium/Pleural There is no pericardial effusion. Inferior Vena Cava Normal inferior vena cava with >50% collapse upon inspiration consistent with normal right atrial pressure, 5 mmHg. Aorta The aortic root size at the sinus of Valsalva is normal. Left Ventricular Outflow Tract Name Value Normal LVOT 2D LVOT Diameter 2.1 cm Pulmonic Valve Name Value Normal RVOT Doppler RVOT Peak Gradient 1 mmHg PV Doppler PV Peak Gradient 2 mmHg Mitral Valve Name Value Normal MV Doppler MV Decel [place] 588 cm/s2 MV PHT 41 ms MV Area (PHT) 5.4 cm2 4.0-5.0 MV Regurgitation Doppler MR Peak Gradient 101 mmHg MV Diastolic Function MV E Peak Velocity 82 cm/s MV A Peak Velocity 2 cm/s MV E/A 43.7 MV Decel Time 140 ms MV Annular TDI MV E/e' (Septal) 5.4 <=8.0 MV E/e' (Lateral) 6.0 <=8.0 MV E/e' (Average) 5.7 Tricuspid Valve Name Value Normal TV Regurgitation Doppler TR Peak Velocity 305 cm/s TR Peak Gradient 32 mmHg Estimated PAP/RSVP RA Pressure 5 mmHg <=5 PA Systolic Pressure 42 mmHg <36 RV Systolic Pressure 42 mmHg <36 Aortic Valve Name Value Normal AV Regurgitation 2D LVOT Area 3.6 cm2 Ventricles Name Value Normal LV Dimensions 2D/MM IVS Diastolic Thickness (2D) 1.1 cm 0.6-1.0 LVID Diastole (2D) 5.9 cm 4.2-5.8 LVIW Diastolic Thickness (2D) 0.9 cm 0.6-1.0 LVID Systole (2D) 3.9 cm 2.5-4.0 LVOT Diameter 2.1 cm LV Mass (2D Cubed) 236.76 g 88.00-224.00 LV Mass Index (2D Cubed) 109 g/m2 49-115 Relative Wall Thickness (2D) 0.30 LV Fractional Shortening/Ejection Fraction 2D/MM LV Fractional Shortening (2D) 35 % 25-43 LV EF (2D Teicholz) 63 % 52-72 LV Diastolic Volume (4C MOD) 109 ml LV EF (4C MOD) 51 % LV Diastolic Volume (2C MOD) 116 ml LV EF (2C MOD) 53 % LV Diastolic Volume (BP MOD) 114 ml 62-150 LV Diastolic Volume Index (BP MOD) 53 ml/m2 34-74 LV Systolic Volume (BP MOD) 52 ml 21-61 LV Systolic Volume Index (BP MOD) 24 ml/m2 11-31 LV EF (BP MOD) 55 % 52-72 LV Diastolic Length (4C) 7.9 cm LV Systolic Length (4C) 7.0 cm LV Stroke Volume (4C MOD) 55 ml Atria Name Value Normal LA Dimensions LA Volume (4C A-L) 128 ml LA Volume (BP A-L) 132 ml RA Dimensions RA Area (4C) 34.5 cm2 <=18.0 Report Signatures
[2024-12-03 00:13] LABS: Anion Gap 18 mmol/L (4-12); Blood Urea Nitrogen 86 mg/dL (9-20); Calcium 8.2 mg/dL (8.4-10.2); Carbon Dioxide 13 mmol/L (22-30); Chloride 108 mmol/L (98-107); Estimated CRCL calculation 6 ml/min; Estimated Glomerular Filt Rate 4; Glucose 88 mg/dL (65-110); Magnesium 2.4 mg/dL (1.6-2.3); Potassium 4.9 mmol/L (3.4-5.0); Sodium 139 mmol/L (137-145)
[2024-12-03 05:11] LABS: Basophils Percent Auto 0.2 % (0.2-1.2); Eosinophils Percent Auto 0.1 % (0-4.4); Hematocrit 37.9 % (42.0-52.0); Hemoglobin 12.5 g/dL (14.0-18.0); Immature Granulocyte Absolute 0.05 K/mm3 (0.00-0.031); Immature Granulocyte Percent A 0.5 % (0-0.5); Lymphocytes Absolute Auto 0.71 K/mm3 (0.9-3.2); Lymphocytes Percent Auto 6.8 % (18.3-44.2); Mean Corpuscular Hemoglobin 33.9 pg (26-34); Mean Corpuscular Volume 102.7 fl (80-100); Mean Platelet Volume 11.8 fl (7.4-10.4); Monocytes Absolute Auto 0.9 K/mm3 (0.1-0.6); Monocytes Percent Auto 8.5 % (2.6-8.5); Neutrophils Absolute Auto 8.7 K/mm3 (1.3-6.7); Neutrophils Percent Auto 83.9 % (45.5-73.1); Platelet Count Result 174 k/mm3 (150-375); Red Blood Count 3.69 M/mm3 (4.6-6.20); Red Cell Distribution Width 13.4 % (11.5-14.5); White Blood Count 10.4 K/mm3 (4.5-10.0)
[2024-12-03 05:26] LABS: Alanine Aminotransferase 11 U/L (6-50); Albumin Level 3.2 g/dL (3.5-5.1); Alkaline Phosphatase 85 U/L (38-126); Anion Gap 19 mmol/L (4-12); Aspartate Amino Transferase 12 U/L (17-59); Bilirubin,Total 0.3 mg/dL (0.2-1.3); Blood Urea Nitrogen 88 mg/dL (9-20); Carbon Dioxide 9 mmol/L (22-30); Chloride 110 mmol/L (98-107); Estimated CRCL calculation 6 ml/min; Estimated Glomerular Filt Rate 4; Glucose 81 mg/dL (65-110); Magnesium 2.3 mg/dL (1.6-2.3); Potassium 5.7 mmol/L (3.4-5.0); Sodium 138 mmol/L (137-145)
[2024-12-03] MEDS: SODIUM CHLORIDE 0.9% IV 1,000 ML 150 ML IV CONT ×3 (05:27→17:05)
[2024-12-03] MEDS: ONDANSETRON HCL ODT 4 MG TABLET PO (06:33)
[2024-12-03] MEDS: DEXTROSE 50% 25 GM/50 ML SYRINGE IV PUSH (06:33)
[2024-12-03] MEDS: SODIUM ZIRCONIUM CYCLOSILICATE 10 GM POWD.PACK PO ×3 (06:33→20:01)
[2024-12-03] MEDS: INSULIN HUMAN REGULAR (*BKC) 100 UNITS/ML 10 UNITS IV PUSH (06:38)
--- NOTE | 2024-12-03 06:49 | P.CONUR_ITS ---
Assessment and Plan Assessment and plan (1) Acute renal failure: Qualifiers: Acute renal failure type: unspecified Qualified Code(s): N17.9 - Acute kidney failure, unspecified Code(s): N17.9 - Acute kidney failure, unspecified Status: Acute (2) Hydroureteronephrosis: Code(s): N13.30 - Unspecified hydronephrosis Status: Acute (3) Bladder wall thickening: Code(s): N32.89 - Other specified disorders of bladder Status: Acute Assessment and Plan: * Urinary retention with bilateral hydronephrosis. * CT scan concerning for invasive urothelial carcinoma that may be causing ureteral obstruction. * Will plan cystoscopy with bladder biopsy, possible TURBT and attempted bilateral ureteral stent placement today. If he does have a neoplasm involving the base of his bladder and may be unable to place ureteral stents. In that event we will consult with Radiology for nephrostomy tube placement. Urology Consult Note HPI Date Seen: 12/03/24 Requesting Physician: Angie Bardales MD Primary Care Provider: Raya Lozoya, PA Consult Narrative Narrative: Stanislav Cho is a 69 year old male who has previously unknown to our practice and never seen a urologist. The past several weeks he has had dysuria and increasing difficulty voiding. Primary care physician is treated him with 2 courses of antibiotics, the 1st of which helped marginally. He denies hematuria or significant flank pain. Seen in the emergency room he had some significant, somewhat ominous looking findings on CT. It showed moderate bladder distention with what appears to be a mass near the bladder base and bilateral hydronephrosis. Additionally, he has new onset acute kidney injury with a serum creatinine greater than 12. A Myers catheter was placed overnight in his renal function has not improved significantly. Review of Systems 2 Cardiovascular: Cardiovascular: Denies chest pain, Denies lightheadedness, Denies palpitations and Denies dyspnea Respiratory: Respiratory: Denies dyspnea Gastrointestinal: Gastrointestinal: Reports bloating, Denies diarrhea, Reports nausea and Denies vomiting Genitourinary: Genitourinary: Denies hematuria and Denies dysuria Endocrine: Endocrine: Denies palpitations PMFSH Past Medical History Medical History Emphysema lung Acute arthritis Rheumatoid osteoperiostitis Afib Surgical History Surgical History History of surgery on arm History of shoulder surgery Family History Family History Sibling Heart disease Skin cancer Social History Social History Smoking status: Former smoker Tobacco type: cigarettes Smoking end date: 08/12/16 Alcohol intake: former Drinks per week: 4 Substance use: current Substance use type: marijuana Other substance usage details: daily use Do You Feel Safe in your Home?: Yes Lack of Transportation: No Lack of Food: Never True Current Housing: I Have Housing Concerned About Future Housing: No Difficulty Paying Gas/Electric Bills: No Difficulty Paying for Meds: No Currently Unemployed: No Education: High School Diploma/GED Difficulty w/ Childcare or Family Care: No Living arrangements: alone Spiritual care concerns: No Meds Home Medications and Allergies Home Medications ?Medication ?Instructions ?Recorded ?Confirmed ?Type ergocalciferol (vitamin D2) 1,250 1,250 mcg PO WEEKLY 02/09/21 12/02/24 History mcg (50,000 unit) capsule fluticasone propionate 50 1 spray intranasal DAILY 02/09/21 12/02/24 History mcg/actuation nasal spray,suspension (Allergy Relief (fluticasone)) nitroglycerin 0.4 mg sublingual 0.4 mg sublingual Q5M PRN Chest 02/09/21 12/02/24 History tablet Pain vitamin B12 0.5 mg-folic acid 1 mg 1 tablet PO DAILY 02/09/21 12/02/24 History tablet aspirin 325 mg tablet,delayed 325 mg PO DAILY 12/20/21 12/02/24 History release atorvastatin 40 mg tablet 40 mg PO DAILY 12/27/21 12/02/24 History tamsulosin 0.4 mg capsule 0.4 mg PO DAILY 02/18/23 12/02/24 History metoprolol succinate 50 mg 50 mg PO DAILY #30 tabs 07/01/24 12/02/24 Rx tablet,extended release 24 hr albuterol sulfate 90 mcg/actuation 2 puff inhalation Q6H PRN 12/02/24 12/02/24 History aerosol inhaler shortness of breath or wheezing budesonide-formoterol HFA 160 2 puff inhalation DAILY 12/02/24 12/02/24 History mcg-4.5 mcg/actuation aerosol inhaler (Symbicort) fluticasone propionate 115 2 puff inhalation DAILY 12/02/24 12/02/24 History mcg-salmeterol 21 mcg/actuation HFA inhaler (Advair HFA) Allergies Allergy/AdvReac Type Severity Reaction Status Date / Time No Known Allergies Allergy Verified 12/02/24 22:21 Vital Signs Vital Signs - 24 hr 12/02/24 16:08 12/02/24 18:43 12/02/24 18:51 Temperature 97.5 F L Pulse Rate 88 114 H 105 H Respiratory Rate 16 13 Blood Pressure 143/102 H 135/87 Pulse Oximetry 97 99 Oxygen Delivery 12/02/24 20:26 12/02/24 20:33 12/02/24 22:02 Temperature Pulse Rate 132 H 102 H 101 H Respiratory Rate 15 14 Blood Pressure 129/80 134/77 Pulse Oximetry 97 93 Oxygen Delivery 12/02/24 22:15 12/02/24 23:19 12/02/24 23:20 Temperature Pulse Rate 134 H 134 H Respiratory Rate Blood Pressure 126/81 Pulse Oximetry Oxygen Delivery Room Air 12/02/24 23:23 12/03/24 00:00 12/03/24 00:00 Temperature 97 F L Pulse Rate 124 H 94 Respiratory Rate 14 Blood Pressure 126/81 126/81 Pulse Oximetry 94 Oxygen Delivery Room Air 12/03/24 00:00 12/03/24 02:00 12/03/24 02:00 Temperature Pulse Rate 94 126 H 126 H Respiratory Rate 16 Blood Pressure 117/82 117/82 Pulse Oximetry 97 Oxygen Delivery 12/03/24 02:00 12/03/24 04:00 12/03/24 04:00 Temperature 98 F Pulse Rate 126 H 113 H Respiratory Rate 16 Blood Pressure 131/88 Pulse Oximetry 90 Oxygen Delivery Room Air 12/03/24 04:00 12/03/24 04:00 12/03/24 06:00 Temperature Pulse Rate 113 H 86 124 H Respiratory Rate Blood Pressure 131/88 126/89 Pulse Oximetry Oxygen Delivery Results Labs 12/03/24 04:32 12/03/24 04:31 Labs: Short CBC 12/02/24 12/03/24 Range/Units 18:14 04:32 WBC 8.7 10.4 H (4.5-10.0) K/mm3 Hgb 13.9 L D 12.5 L (14.0-18.0) g/dL Hct 42.4 37.9 L (42.0-52.0) % Plt Count 197 174 (150-375) k/mm3 BMP 12/02/24 12/02/24 12/03/24 18:14 23:42 04:31 Sodium 138 139 138 Potassium 5.2 H 4.9 5.7 H Chloride 103 108 H 110 H Carbon Dioxide 16 L 13 L 9 L BUN 89 H D 86 H 88 H Creatinine 12.77 H 12.46 H 12.90 H Glucose 93 88 81 Calcium 8.7 8.2 L 8.0 L Liver Function 12/02/24 12/03/24 Range/Units 18:14 04:31 Total Bilirubin 0.3 0.3 (0.2-1.3) mg/dL AST 14 L 12 L (17-59) U/L ALT 14 11 (6-50) U/L Alkaline Phosphatase 93 85 (38-126) U/L Albumin 3.8 3.2 L (3.5-5.1) g/dL Urine 12/02/24 Range/Units 20:11 Urine Color Yellow (Yellow) Urine Appearance Cloudy H (Clear) Urine pH 6.5 (5.0-9.0) Ur Specific [place] 1.011 (1.001-1.035) Urine Protein 3+ H (Negative) mg/dL Urine Glucose (UA) Negative (Negative) mg/dL
[2024-12-03 07:10] LABS: INR 1.3; Prothrombin Time 16.5 Seconds (11.1-14.7)
[2024-12-03] MEDS: FLUTICASONE/SALMETEROL 115-21 MCG INHALER 1 PUFF 2 PUFF INHALATION ×2 (07:26→20:31)
[2024-12-03] MEDS: FLUTICASONE PROPIONATE 0.05% NA SPR 16 GM BTL (*BKC) 1 SPRAY NASAL (08:40)
[2024-12-03] MEDS: TAMSULOSIN HCL 0.4 MG CAPSULE PO (08:41)
[2024-12-03] MEDS: ATORVASTATIN 40 MG TABLET PO (08:41)
[2024-12-03] MEDS: METOPROLOL SUCCINATE EXT REL 50 MG TABCR PO (08:41)
--- NOTE | 2024-12-03 08:42 | PM.CNCAR ---
Assessment and Plan Assessment and plan (1) Atrial fibrillation with RVR: Code(s): I48.91 - Unspecified atrial fibrillation Status: Acute Assessment and Plan: Asymptomatic. [id number] 0. On aspirin. Rate control. Stop Diltiazem drip. Start Diltiazem 60 mg PO every 6 hours and change Metoprolol Tarate 25 mg every 6 hours for rate control with parameters. (2) Dyslipidemia: Code(s): E78.5 - Hyperlipidemia, unspecified Status: Acute Assessment and Plan: On Atorvastatin. (3) Systolic dysfunction: Code(s): I51.9 - Heart disease, unspecified Status: Acute Assessment and Plan: Mild. Obtain echo. (4) Acute renal failure: Qualifiers: Acute renal failure type: unspecified Qualified Code(s): N17.9 - Acute kidney failure, unspecified Code(s): N17.9 - Acute kidney failure, unspecified Status: Acute Assessment and Plan: Managed by hospitalist. (5) Acute UTI: Code(s): N39.0 - Urinary tract infection, site not specified Status: Acute Assessment and Plan: On antibiotics. (6) Bladder wall thickening: Code(s): N32.89 - Other specified disorders of bladder Status: Acute Assessment and Plan: Managed by hospitalist. History of Present Illness History of Present Illness Consult date/time: 12/03/24 08:42 Reason For Visit: Acute renal failure Narrative: 69 yr old man who is my regular cardiology patient of Dr. Abel presents to ER with urinary retention.He has a history of chronic atrial fibrillation since 1981, COPD, remote smoking. Reports for last few days he has not had any urinary output although it felt like he was urinating. He also has suprapubic pressure and pain. It was noted his HR was rapid in ER. States he can walk with his cane up to 1/2 block due to RAMSEY. Denies orthopnea, PND, edema, dizziness, palpitations. Cardiovascular Procedures [employer]:: 08/24/17 [place] cardiac cath: Minimal plaque in LCx otherwise normal coronaries. Echo/MUGA:: 09/10/23 Echo: EF 40-45%, severe LAE, RV mod reduced with TAPSE 1.1 cm, mod HIMANSHU, trace AI, mild-mod MR, mild TR, 01/22/22 Echo: EF 40-45%, mild RVE, mod HIMANSHU, severe LAE, mild AI/MR/TR. Electrophysiology:: 12/20/21 EKG: Atrial fib at 108 bpm. 07/02/17 ETT at [place]: Negative for ischemia; exercised for 3 min, 14 seconds. EKG with atrial fibrillation. Stress Tests:: 01/22/22 Lexiscan myoview: Negative. Review of Systems Review of Systems: All systems reviewed & are unremarkable except as noted in HPI and below Constitutional: Constitutional: Reports as per HPI and Reports fatigue Cardiovascular: Cardiovascular: Reports as per HPI and Denies chest pain Respiratory: Respiratory: Reports as per HPI and Denies dyspnea Gastrointestinal: Gastrointestinal: Reports as per HPI and Denies abdominal pain Genitourinary: Genitourinary: Reports as per HPI and Reports dysuria Musculoskeletal: Musculoskeletal: Reports as per HPI Neurologic: Reports as per HPI, Denies dizziness and Denies syncope [facility] Past Medical History Medical History Emphysema lung Acute arthritis Rheumatoid osteoperiostitis Afib Surgical History Surgical History History of surgery on arm History of shoulder surgery Family History Family History Sibling Heart disease Skin cancer Social History Social History Smoking status: Former smoker Tobacco type: cigarettes Smoking end date: 08/12/16 Alcohol intake: former Drinks per week: 4 Substance use: current Substance use type: marijuana Other substance usage details: daily use Do You Feel Safe in your Home?: Yes Lack of Transportation: No Lack of Food: Never True Current Housing: I Have Housing Concerned About Future Housing: No Difficulty Paying Gas/Electric Bills: No Difficulty Paying for Meds: No Currently Unemployed: No Education: High School Diploma/GED Difficulty w/ Childcare or Family Care: No Living arrangements: alone Spiritual care concerns: No Meds Home Medications and Allergies Home Medications ?Medication ?Instructions ?Recorded ?Confirmed ?Type ergocalciferol (vitamin D2) 1,250 1,250 mcg PO WEEKLY 02/09/21 12/02/24 History mcg (50,000 unit) capsule fluticasone propionate 50 1 spray intranasal DAILY 02/09/21 12/02/24 History mcg/actuation nasal spray,suspension (Allergy Relief (fluticasone)) nitroglycerin 0.4 mg sublingual 0.4 mg sublingual Q5M PRN Chest 02/09/21 12/02/24 History tablet Pain vitamin B12 0.5 mg-folic acid 1 mg 1 tablet PO DAILY 02/09/21 12/02/24 History tablet aspirin 325 mg tablet,delayed 325 mg PO DAILY 12/20/21 12/02/24 History release atorvastatin 40 mg tablet 40 mg PO DAILY 12/27/21 12/02/24 History tamsulosin 0.4 mg capsule 0.4 mg PO DAILY 02/18/23 12/02/24 History metoprolol succinate 50 mg 50 mg PO DAILY #30 tabs 07/01/24 12/02/24 Rx tablet,extended release 24 hr albuterol sulfate 90 mcg/actuation 2 puff inhalation Q6H PRN 12/02/24 12/02/24 History aerosol inhaler shortness of breath or wheezing budesonide-formoterol HFA 160 2 puff inhalation DAILY 12/02/24 12/02/24 History mcg-4.5 mcg/actuation aerosol inhaler (Symbicort) fluticasone propionate 115 2 puff inhalation DAILY 12/02/24 12/02/24 History mcg-salmeterol 21 mcg/actuation HFA inhaler (Advair HFA) Allergies Allergy/AdvReac Type Severity Reaction Status Date / Time No Known Allergies Allergy Verified 12/02/24 22:21 Vital Signs Vital Signs - 24 hr 12/02/24 16:08 12/02/24 18:43 12/02/24 18:51 Temperature 97.5 F L Pulse Rate 88 114 H 105 H Respiratory Rate 16 13 Blood Pressure 143/102 H 135/87 Pulse Oximetry 97 99 Oxygen Delivery 12/02/24 20:26 12/02/24 20:33 12/02/24 22:02 Temperature Pulse Rate 132 H 102 H 101 H Respiratory Rate 15 14 Blood Pressure 129/80 134/77 Pulse Oximetry 97 93 Oxygen Delivery 12/02/24 22:15 12/02/24 23:19 12/02/24 23:20 Temperature Pulse Rate 134 H 134 H Respiratory Rate Blood Pressure 126/81 Pulse Oximetry Oxygen Delivery Room Air 12/02/24 23:23 12/03/24 00:00 12/03/24 00:00 Temperature 97 F L Pulse Rate 124 H 94 Respiratory Rate 14 Blood Pressure 126/81 126/81 Pulse Oximetry 94 Oxygen Delivery Room Air 12/03/24 00:00 12/03/24 02:00 12/03/24 02:00 Temperature Pulse Rate 94 126 H 126 H Respiratory Rate 16 Blood Pressure 117/82 117/82 Pulse Oximetry 97 Oxygen Delivery 12/03/24 02:00 12/03/24 04:00 12/03/24 04:00 Temperature 98 F Pulse Rate 126 H 113 H Respiratory Rate 16 Blood Pressure 131/88 Pulse Oximetry 90 Oxygen Delivery Room Air 12/03/24 04:00 12/03/24 04:00 12/03/24 06:00 Temperature Pulse Rate 113 H 86 124 H Respiratory Rate Blood Pressure 131/88 126/89 Pulse Oximetry Oxygen Delivery 12/03/24 06:00 12/03/24 06:00 12/03/24 07:31 Temperature Pulse Rate 124 H 126 H Respiratory Rate 18 Blood Pressure 126/89 Pulse Oximetry 96 92 Oxygen Delivery Room Air 12/03/24 08:00 12/03/24 08:41 Temperature 97.6 F Pulse Rate 90 102 H Respiratory Rate 20 Blood Pressure 123/73 Pulse Oximetry 93 Oxygen Delivery Exam Const: General: cooperative, healthy appearing and comfortable Resp: Auscultation: clear to auscultation bilaterally, no crackles, no rales, no rhonchi and no wheezes Cardio: Rate: tachycardic Rhythm: abnormal rhythm Heart sounds: no murmurs Peripheral pulses: dorsalis pedis present GI: GI Palp: No abdominal tenderness and Yes Soft to palpation Neuro: General: oriented to person, oriented to place and oriented to time Extrem: Right lower extremity: no edema Left lower extremity: no edema Results Labs and Meds 12/03/24 04:32 12/03/24 04:31 Lab results: Cardiac Enzymes 12/02/24 12/03/24 Range/Units 18:14 04:31 AST 14 L 12 L (17-59) U/L Coagulation 12/03/24 Range/Units 06:55 PT 16.5 H (11.1-14.7) Seconds APTT 32.0 (22.3-36.8) Seconds CBC 12/02/24 12/03/24 Range/Units 18:14 04:32 WBC 8.7 10.4 H (4.5-10.0) K/mm3 RBC 4.15 L 3.69 L (4.6-6.20) M/mm3 Hgb 13.9 L D 12.5 L (14.0-18.0) g/dL Hct 42.4 37.9 L (42.0-52.0) % Plt Count 197 174 (150-375) k/mm3 Lymph # (Auto) 1.18 0.71 L (0.9-3.2) K/mm3 [place] # (Auto) 1.0 H 0.9 H (0.1-0.6) K/mm3 Eos # (Auto) 0.1 0.0 (0-0.3) K/mm3 Baso # (Auto) 0.0 0.0 (0.0-0.1) K/mm3 Comprehensive Metabolic Panel 12/02/24 12/02/24 12/03/24 Range/Units 18:14 23:42 04:31 Sodium 138 139 138 (137-145) mmol/L Potassium 5.2 H 4.9 5.7 H (3.4-5.0) mmol/L Chloride 103 108 H 110 H (98-107) mmol/L Carbon Dioxide 16 L 13 L 9 L (22-30) mmol/L BUN 89 H D 86 H 88 H (9-20) mg/dL Creatinine 12.77 H 12.46 H 12.90 H (0.7-1.3) mg/dL Glucose 93 88 81 (65-110) mg/dL Calcium 8.7 8.2 L 8.0 L (8.4-10.2) mg/dL AST 14 L 12 L (17-59) U/L ALT 14 11 (6-50) U/L Alkaline Phosphatase 93 85 (38-126) U/L Total Protein 8.0 7.0 (6.3-8.2) g/dL Albumin 3.8 3.2 L (3.5-5.1) g/dL Intake and Output 12/02/24 12/03/24 12/03/24 23:59 07:59 15:59 Intake Total 1999 1033.4 Output Total 100 Balance 1999 933.4 Intake: IV 1999 1033.4 Sodium Chloride 0.9% IV 1,000 1999 1000 ml @ 150 mls/hr IV CONT .Q6H40M [facility] Rx#:[id number] dilTIAZem 100 MG/100 ML 100 mg 33.4 In 100 ml @ 5 MG/HR 5 mls/hr IV CONT .Q20H [facility] Rx#:[id number] Output: Catheter Urine 100 Urethral Catheter 100 Other: Intake, Other Source NPO Patient Weight 12/03/24 23:59 Weight 90.7 kg
[2024-12-03] MEDS: dilTIAZem HCL 60 MG TABLET PO ×2 (09:05→17:04)
--- NOTE | 2024-12-03 10:18 | WPDANESEPPF ---
Anes - Initial Pre Proc Eval Procedure: Operation Date: 12/03/24 12:00 Proposed Procedures p Cystoscopy, Bladder Biopsy, - Lon Foster MD s Possible Trans Urethral Resection Bladder Tumor, Possible Bilateral Stent Placement - Lon Foster MD Date/Time: 12/03/24 10:18 Surgeon: Angie Bardales MD Pre Op Diagnosis: Acute renal failure Patient Data Age: 69 Gender: M Height: 1.85 m Weight: 90.7 kg Last Vital Signs Temp 36.4 C 12/03/24 08:00 Pulse 102 H 12/03/24 08:41 Resp 20 12/03/24 08:00 BP 123/73 12/03/24 08:00 Pulse Ox 93 12/03/24 08:00 O2 Del Method Room Air 12/03/24 07:31 Allergies Allergy/AdvReac Type Severity Reaction Status Date / Time No Known Allergies Allergy Verified 12/02/24 22:21 Home Medications ?Medication ?Instructions ?Recorded ?Confirmed ?Type ergocalciferol (vitamin D2) 1,250 1,250 mcg PO WEEKLY 02/09/21 12/02/24 History mcg (50,000 unit) capsule fluticasone propionate 50 1 spray intranasal DAILY 02/09/21 12/02/24 History mcg/actuation nasal spray,suspension (Allergy Relief (fluticasone)) nitroglycerin 0.4 mg sublingual 0.4 mg sublingual Q5M PRN Chest 02/09/21 12/02/24 History tablet Pain vitamin B12 0.5 mg-folic acid 1 mg 1 tablet PO DAILY 02/09/21 12/02/24 History tablet aspirin 325 mg tablet,delayed 325 mg PO DAILY 12/20/21 12/02/24 History release atorvastatin 40 mg tablet 40 mg PO DAILY 12/27/21 12/02/24 History tamsulosin 0.4 mg capsule 0.4 mg PO DAILY 02/18/23 12/02/24 History metoprolol succinate 50 mg 50 mg PO DAILY #30 tabs 07/01/24 12/02/24 Rx tablet,extended release 24 hr albuterol sulfate 90 mcg/actuation 2 puff inhalation Q6H PRN 12/02/24 12/02/24 History aerosol inhaler shortness of breath or wheezing budesonide-formoterol HFA 160 2 puff inhalation DAILY 12/02/24 12/02/24 History mcg-4.5 mcg/actuation aerosol inhaler (Symbicort) fluticasone propionate 115 2 puff inhalation DAILY 12/02/24 12/02/24 History mcg-salmeterol 21 mcg/actuation HFA inhaler (Advair HFA) Laboratory Tests 12/02/24 12/02/24 12/02/24 18:14 20:11 20:44 WBC 8.7 K/mm3 (4.5-10.0) RBC 4.15 L M/mm3 (4.6-6.20) Hgb 13.9 L D g/dL (14.0-18.0) Hct 42.4 % (42.0-52.0) MCV 102.2 H fl (80-100) MCH 33.5 pg (26-34) MCHC 32.8 g/dl (32-36) RDW 13.4 % (11.5-14.5) Plt Count 197 k/mm3 (150-375) MPV 11.2 H fl (7.4-10.4) Immature Gran % (Auto) 0.6 H % (0-0.5) Neut % (Auto) 73.0 % (45.5-73.1) Lymph % (Auto) 13.6 L % (18.3-44.2) [place] % (Auto) 11.5 H % (2.6-8.5) Eos % (Auto) 1.0 % (0-4.4) Baso % (Auto) 0.3 % (0.2-1.2) Lymph # (Auto) 1.18 K/mm3 (0.9-3.2) [place] # (Auto) 1.0 H K/mm3 (0.1-0.6) Eos # (Auto) 0.1 K/mm3 (0-0.3) Baso # (Auto) 0.0 K/mm3 (0.0-0.1) Abs Immat Gran (auto) 0.05 H K/mm3 (0.00-0.031) Absolute Neuts (auto) 6.3 K/mm3 (1.3-6.7) Absolute Nucleated RBC 0.000 K/mm3 (0.0-0.012) Nucleated RBC % 0.0 % (0.0-0.2) PT INR APTT Sodium 138 mmol/L (137-145) Potassium 5.2 H mmol/L (3.4-5.0) Chloride 103 mmol/L (98-107) Carbon Dioxide 16 L mmol/L (22-30) Anion Gap 19 H mmol/L (4-12) BUN 89 H D mg/dL (9-20) Creatinine 12.77 H mg/dL (0.7-1.3) Estim Creat Clear Calc 6 ml/min Estimated GFR 4 L (59 - ) Glucose 93 mg/dL (65-110) Lactic Acid 1.2 mmol/L (0.7-2.0) Calcium 8.7 mg/dL (8.4-10.2) Phosphorus 8.3 H mg/dL (2.5-4.5) Magnesium 2.6 H mg/dL (1.6-2.3) Total Bilirubin 0.3 mg/dL (0.2-1.3) AST 14 L U/L (17-59) ALT 14 U/L (6-50) Alkaline Phosphatase 93 U/L (38-126) Total Protein 8.0 g/dL (6.3-8.2) Albumin 3.8 g/dL (3.5-5.1) Lipase 115 U/L (23-300) Urine Color Yellow (Yellow) Urine Appearance Cloudy H (Clear) Urine pH 6.5 (5.0-9.0) Ur Specific [place] 1.011 (1.001-1.035) Urine Protein 3+ H mg/dL (Negative) Urine Glucose (UA) Negative mg/dL (Negative) Urine Ketones Negative mg/dL (Negative) Ur Blood (Man) 2+ H (Negative) Urine Nitrate Negative (Negative) Urine Bilirubin Negative (Negative) Urine Urobilinogen 0.2 mg/dL (<2.0) Add Ur Microanalysis Reviewed Leukocyte Esterase Rfl 2+ H MANUEL/UL (Negative) Urine RBC 51-100 H /hpf (0-2) Urine WBC 51-100 H /hpf (0-3) Ur Squamous Epith Cells Moderate /hpf (Few) Urine Bacteria None seen /hpf Urine Casts 0-2 12/02/24 12/03/24 12/03/24 23:42 04:31 04:32 WBC 10.4 H K/mm3 (4.5-10.0) RBC 3.69 L M/mm3 (4.6-6.20) Hgb 12.5 L g/dL (14.0-18.0) Hct 37.9 L % (42.0-52.0) MCV 102.7 H fl (80-100) MCH 33.9 pg (26-34) MCHC 33.0 g/dl (32-36) RDW 13.4 % (11.5-14.5) Plt Count 174 k/mm3 (150-375) MPV 11.8 H fl (7.4-10.4) Immature Gran % (Auto) 0.5 % (0-0.5) Neut % (Auto) 83.9 H % (45.5-73.1) Lymph % (Auto) 6.8 L % (18.3-44.2) Hartley % (Auto) 8.5 % (2.6-8.5) Eos % (Auto) 0.1 % (0-4.4) Baso % (Auto) 0.2 % (0.2-1.2) Lymph # (Auto) 0.71 L K/mm3 (0.9-3.2) [place] # (Auto) 0.9 H K/mm3 (0.1-0.6) Eos # (Auto) 0.0 K/mm3 (0-0.3) Baso # (Auto) 0.0 K/mm3 (0.0-0.1) Abs Immat Gran (auto) 0.05 H K/mm3 (0.00-0.031) Absolute Neuts (auto) 8.7 H K/mm3 (1.3-6.7) Absolute Nucleated RBC 0.000 K/mm3 (0.0-0.012) Nucleated RBC % 0.0 % (0.0-0.2) PT INR APTT Sodium 139 mmol/L 138 mmol/L (137-145) (137-145) Potassium 4.9 mmol/L 5.7 H mmol/L (3.4-5.0) (3.4-5.0) Chloride 108 H mmol/L 110 H mmol/L (98-107) (98-107) Carbon Dioxide 13 L mmol/L 9 L mmol/L (22-30) (22-30) Anion Gap 18 H mmol/L 19 H mmol/L (4-12) (4-12) BUN 86 H mg/dL 88 H mg/dL (9-20) (9-20) Creatinine 12.46 H mg/dL 12.90 H mg/dL (0.7-1.3) (0.7-1.3) Estim Creat Clear Calc 6 ml/min 6 ml/min Estimated GFR 4 L 4 L (59 - ) (59 - ) Glucose 88 mg/dL 81 mg/dL (65-110) (65-110) Lactic Acid Calcium 8.2 L mg/dL 8.0 L mg/dL (8.4-10.2) (8.4-10.2) Phosphorus 8.0 H mg/dL (2.5-4.5) Magnesium 2.4 H mg/dL 2.3 mg/dL (1.6-2.3) (1.6-2.3) Total Bilirubin 0.3 mg/dL (0.2-1.3) AST 12 L U/L (17-59) ALT 11 U/L (6-50) Alkaline Phosphatase 85 U/L (38-126) Total Protein 7.0 g/dL (6.3-8.2) Albumin 3.2 L g/dL (3.5-5.1) Lipase Urine Color Urine Appearance Urine pH Ur Specific [place] Urine Protein Urine Glucose (UA) Urine Ketones Ur Blood (Man) Urine Nitrate Urine Bilirubin Urine Urobilinogen Add Ur Microanalysis Leukocyte Esterase Rfl Urine RBC Urine WBC Ur Squamous Epith Cells Urine Bacteria Urine Casts 12/03/24 06:55 WBC RBC Hgb Hct MCV MCH MCHC RDW Plt Count MPV Immature Gran % (Auto) Neut % (Auto) Lymph % (Auto) Hartley % (Auto) Eos % (Auto) Baso % (Auto) Lymph # (Auto) Hartley # (Auto) Eos # (Auto) Baso # (Auto) Abs Immat Gran (auto) Absolute Neuts (auto) Absolute Nucleated RBC Nucleated RBC % PT 16.5 H Seconds (11.1-14.7) INR 1.3 APTT 32.0 Seconds (22.3-36.8) Sodium Potassium Chloride Carbon Dioxide Anion Gap BUN Creatinine Estim Creat Clear Calc Estimated GFR Glucose Lactic Acid Calcium Phosphorus Magnesium Total Bilirubin AST ALT Alkaline Phosphatase Total Protein Albumin Lipase Urine Color Urine Appearance Urine pH Ur Specific [place] Urine Protein Urine Glucose (UA) Urine Ketones Ur Blood (Man) Urine Nitrate Urine Bilirubin Urine Urobilinogen Add Ur Microanalysis Leukocyte Esterase Rfl Urine RBC Urine WBC Ur Squamous Epith Cells Urine Bacteria Urine Casts Patient hx anesthesia problems: none Family hx anesthesia problems: none Results Review: All pre-operative results and documents have been reviewed as part of the pre-operative evaluation. PMFSH Past Medical History Medical History Emphysema lung Acute arthritis Rheumatoid osteoperiostitis Afib Surgical History Surgical History History of surgery on arm History of shoulder surgery Family History Family History Sibling Heart disease Skin cancer Social History Social History Smoking status: Former smoker Tobacco type: cigarettes Smoking end date: 08/12/16 Alcohol intake: former Drinks per week: 4 Substance use: current Substance use type: marijuana Other substance usage details: daily use Do You Feel Safe in your Home?: Yes Lack of Transportation: No Lack of Food: Never True Current Housing: I Have Housing Concerned About Future Housing: No Difficulty Paying Gas/Electric Bills: No Difficulty Paying for Meds: No Currently Unemployed: No Education: High School Diploma/GED Difficulty w/ Childcare or Family Care: No Living arrangements: alone Spiritual care concerns: No Anes - Eval Final PreProcedure Day of Procedure 12/03/24 10:18 Patient weight: overweight Heart: irregular rhythm and tachycardia Lungs: clear to auscultation Airway: Mallampati scale class II Neurological: alert and oriented Last oral intake: >/= 8 hours ASA classification: IV Emergent: no Anesthetic plan: proceed Anesthesia type and monitoring: general LMA and standard monitoring Results Review: All pre-operative results and documents have been reviewed as part of the pre-operative evaluation. Informed Consent: The patient's anesthetic plan and its attendant risks and benefits were discussed with the patient/family/POA. Questions were solicited and answers provided to the satisfaction of the patient/family/POA.
[2024-12-03] MEDS: LACTATED RINGERS 1,000 ML 30 ML IV CONT ×2 (10:30→11:40)
--- NOTE | 2024-12-03 10:52 | ECG_ITS ---
Test Date: 2024-12-03 14:21:36 Measurements Intervals Ideal Rate: 94 P: 0 DE: 0 QRS: -3 QRSD: 81 T: 8 QT: 374 QTc: 468 Interpretive Statements ATRIAL FIBRILLATION BASELINE ARTIFACT- I, II, III ABNORMAL ECG Compared to ECG 12/02/2024 18:40:46 HEART RATE HAS DECREASED Electronically Signed On 12-03-2024 14:30:44 CDT by Jorge Alberto Carlson D.O.
--- NOTE | 2024-12-03 11:07 | WPDHPUPDATE1 ---
History and Physical Update Update Date/Time: 12/03/24 11:07 History and Physical has been reviewed, including an updated exam of the patient. There are NO changes in the patient's condition. Risks, benefits, and alternatives have been discussed and questions answered. Patient agrees to proceed with procedure.
--- NOTE | 2024-12-03 12:06 | W.PM.PROC2 ---
Procedure Note - Detailed Date of Procedure 12/03/24 Pre-op Diagnosis Acute renal failure, bladder mass, bilateral hydronephrosis Post-op Diagnosis Same Procedure Performed Cystoscopy, right retrograde pyelography and right ureteral stent placement. Attempted left ureteral stent placement. TURBT (large, 5-6cm) Surgeon Lon Foster MD Anesthesia General and MAC Findings Large poorly differentiated neoplasm arising at the bladder neck extending into bladder trigone, more so on the left Description of Procedure Patient is brought to the operative suite where he was prepped draped in routine sterile fashion in dorsal lithotomy position after the uneventful induction of a general LMA anesthetic. Cystoscopy was undertaken with a 21 F rigid cystoscope. His no urethral stricture and moderate lateral lobe hyperplasia of the prostate. His a very unusual, very large dense solid neoplasm arising at the bladder neck and extending into the trigone, more so on the left than right. The remainder of his bladder was densely trabeculated with mild diffuse hyperemia. This bladder mass appears to be a primary poorly differentiated bladder neoplasm although I can not completely exclude possibility of a locally extensive prostate cancer. I resected a large section of this in the left hemanth trigone in an attempt to not only obtain tissue for diagnosis but also to help identify the left ureteral orifice. Ultimately I was able to find the right ureteral orifice, performed a retrograde pyelogram and placed a 6 F variable length stent. I was never able to identify the left. Where resected was cauterized with the rollerball. Resectoscope was removed and a [address] catheter was placed to continuous irrigation. Drains Yes Packing No Pathology Yes Complications No immediate complications
[2024-12-03] MEDS: fentaNYL CITRATE INJ (*CRX) 100 MCG/2 ML VIAL 25 MCG IV PUSH ×2 (12:24→12:35)
--- NOTE | 2024-12-03 13:47 | P.CONNP_ITS ---
Assessment and Plan Assessment and plan (1) Acute kidney injury: Code(s): N17.9 - Acute kidney failure, unspecified Status: Acute Assessment and Plan: * presumed to be secondary to obstructive uropathy * last known creatinine was 1.2 - 1.3mg/dl in November 2022 * s/p goodwin catheter placement * since no improvement since admission, taken to OR earlier today for cystoscopy and stent placement (see #2) * follow trend of repeat labs and UOP (2) Hydroureteronephrosis: Code(s): N13.30 - Unspecified hydronephrosis Status: Acute Assessment and Plan: * bilateral and as noted on admission CT of abdomen/pelvis * Urology following: * s/p cystoscopy, right retrograde pyelography and right ureteral stent placement and TURBT * attempted left ureteral stent placement (but unable to locate left ureteral orifice) * continue supportive therapy (3) Hyperkalemia: Code(s): E87.5 - Hyperkalemia Status: Acute Assessment and Plan: * due to #1 and #2 * s/p medical management * follow trend of K+ (4) Atrial fibrillation with RVR: Code(s): I48.91 - Unspecified atrial fibrillation Status: Acute Assessment and Plan: * rate control strategy * on diltiazem and metoprolol * Cardiology following (5) Acute UTI: Code(s): N39.0 - Urinary tract infection, site not specified Status: Acute Assessment and Plan: * admission UA suggestive * however, urine culture was not done * on antibiotics (6) Mass of bladder: Code(s): N32.89 - Other specified disorders of bladder Status: Acute Assessment and Plan: * suspect malignancy (urothelial carcinoma +/- prostate cancer) * s/p TURBT * pathology pending * Urology following * Oncology consulted Long and extensive discussion (> 20 minutes) with patient regarding the severity of his renal dysfunction with the concern that if his kidney function does not improve or worsen and leads to further issues with hyperkalemia, metabolic acidosis, volume overload or uremia, he may require/need UI PROGRAMMER/dialysis -- he appeared to voice understanding. I will continue to follow the patient with you while he remains hospitalized and make further recommendations as deemed necessary. Thank you for allowing me to participate in the care of this patient. L History of Present Illness Reason for Consult Consult date: 12/03/24 Reason for consult: acute renal failure Chief Complaint Chief complaint: Acute renal failure History of Present Illness Narrative: The patient is a 69-year-old male with a past medical history as outlined below who presented to [facility] Emergency Room with complaints of urinary retention. About 3 weeks ago, the patient had symptoms of dysuria and he was prescribed antibiotics on the assumption that this symptom was related to a urinary tract infection. With the antibiotic therapy, his symptoms improved. However, about a week prior to presentation to the ER in a his dysuria return the. Furthermore, over last few days prior to his ER visit he has had difficulty urinating and fully emptying his bladder. He talked to his primary care physician about this symptom and his home dose of 10 below seen was increased in effort to resolve this problem. However, he continued to have difficulty urinating in association with mild suprapubic tenderness as well. Associated symptoms include right flank pain, nausea, vomiting, and poor oral intake. He gave no history of hematuria, fevers, chills, shortness of breath, or chest pain. Do the progression of the symptoms without any improvement, he presented to the ER for further assessment. Workup and evaluation in emergency room demonstrated the patient to be hemodynamically stable and afebrile but tachycardic. He was noted be in atrial fibrillation with RVR with a heart rate in the 120s to 140s. Routine blood test demonstrated white blood cell count of 8.7, hemoglobin 13.9, potassium 5.2, bicarb 16, BUN of 89, creatinine of 12.7, phosphorus 8.3, and a magnesium 2.6. His urinalysis was significant for a cloudy appearance, 2+ blood, 2+ leukocyte esterase, and 50-[address] white blood cells[address] A [address] scan of his abdomen pelvis was done which demonstrated bilateral hydroureteronephrosis without obstructing calculus identified as well as abnormal mural thickening within the posterior wall of the bladder with a concern for possible malignancy. Given these findings, he was given a dose of IV diltiazem and metoprolol to control his heart rate along with IV fluids and after appropriate cultures were obtained, initiated on IV antibiotics. Urology and Cardiology were consulted from the ER and he was subsequently admitted to the hospital for further evaluation and therapy. Since his admission, he has been seen by both Cardiology and Neurology. His diltiazem drip has been discontinued in favor of oral diltiazem and med Toprol for rate control and urology took him to the OR for cystoscopy with subsequent right ureteral stent placement and transurethral resection of the bladder tumor; left ureteral stent placement was attempted but the left ureteral orifice was unable to be identified. Renal consultation was requested due to his acute kidney injury/acute renal failure. Unfortunately, the only previous labs I have available to compare to with regard to his renal function are from November of 2022 where his creatinine was running around 1.2-1.3 mg/dL. On admission, noted above, his creatinine is 12.7 mg/dl and despite interventions prior to his operative intervention by Urology, his creatinine had not significantly improved. His potassium is also somewhat on the higher side of normal but he orders seed medical management for this earlier this morning. Since his urological procedure, he appears to be making a bit more urine since he came back from the OR. Currently, at the time my visit, he appears to be in no acute distress. Review of Systems 2 Review of Systems: As per HPI. [facility] Past Medical History Medical History Emphysema lung Acute arthritis Rheumatoid osteoperiostitis Afib Surgical History Surgical History History of surgery on arm History of shoulder surgery Family History Family History Sibling Heart disease Skin cancer Social History Social History Smoking status: Former smoker Tobacco type: cigarettes Smoking end date: 08/12/16 Alcohol intake: former Drinks per week: 4 Substance use: current Substance use type: marijuana Other substance usage details: daily use Do You Feel Safe in your Home?: Yes Lack of Transportation: No Lack of Food: Never True Current Housing: I Have Housing Concerned About Future Housing: No Difficulty Paying Gas/Electric Bills: No Difficulty Paying for Meds: No Currently Unemployed: No Education: High School Diploma/GED Difficulty w/ Childcare or Family Care: No Living arrangements: alone Spiritual care concerns: No Meds Home Medications and Allergies Home Medications ?Medication ?Instructions ?Recorded ?Confirmed ?Type ergocalciferol (vitamin D2) 1,250 1,250 mcg PO WEEKLY 02/09/21 12/02/24 History mcg (50,000 unit) capsule fluticasone propionate 50 1 spray intranasal DAILY 02/09/21 12/02/24 History mcg/actuation nasal spray,suspension (Allergy Relief (fluticasone)) nitroglycerin 0.4 mg sublingual 0.4 mg sublingual Q5M PRN Chest 02/09/21 12/02/24 History tablet Pain vitamin B12 0.5 mg-folic acid 1 mg 1 tablet PO DAILY 02/09/21 12/02/24 History tablet aspirin 325 mg tablet,delayed 325 mg PO DAILY 12/20/21 12/02/24 History release atorvastatin 40 mg tablet 40 mg PO DAILY 12/27/21 12/02/24 History tamsulosin 0.4 mg capsule 0.4 mg PO DAILY 02/18/23 12/02/24 History metoprolol succinate 50 mg 50 mg PO DAILY #30 tabs 07/01/24 12/02/24 Rx tablet,extended release 24 hr albuterol sulfate 90 mcg/actuation 2 puff inhalation Q6H PRN 12/02/24 12/02/24 History aerosol inhaler shortness of breath or wheezing budesonide-formoterol HFA 160 2 puff inhalation DAILY 12/02/24 12/02/24 History mcg-4.5 mcg/actuation aerosol inhaler (Symbicort) fluticasone propionate 115 2 puff inhalation DAILY 12/02/24 12/02/24 History mcg-salmeterol 21 mcg/actuation HFA inhaler (Advair HFA) Allergies Allergy/AdvReac Type Severity Reaction Status Date / Time No Known Allergies Allergy Verified 12/02/24 22:21 Vital Signs Vital Signs Temp Pulse Resp BP Pulse Ox O2 Del Method O2 Flow Rate 12/03/24 13:25 97.4 F L 94 20 132/75 94 Nasal Cannula 3 12/03/24 13:10 98 12 129/70 91 Nasal Cannula 4 12/03/24 12:55 104 H 14 137/91 H 91 Nasal Cannula 4 12/03/24 12:40 94 12 119/72 94 Nasal Cannula 4 12/03/24 12:25 110 H 16 122/74 90 Nasal Cannula 4 12/03/24 12:10 101 H 14 125/87 91 Nasal Cannula 3 12/03/24 11:55 103 H 18 118/86 94 Simple Face Mask 8 12/03/24 11:40 97.1 F L 94 20 131/87 97 Simple Face Mask 8 12/03/24 10:30 98.1 F 91 14 134/99 H 100 Room Air 12/03/24 10:00 97.8 F 121 H 20 122/80 92 12/03/24 10:00 110 H 12/03/24 08:41 102 H 12/03/24 08:00 87 12/03/24 08:00 93 Room Air 12/03/24 08:00 97.6 F 90 20 123/73 93 12/03/24 07:31 92 Room Air 12/03/24 06:00 126 H 12/03/24 06:00 124 H 18 126/89 96 12/03/24 06:00 124 H 126/89 12/03/24 04:00 86 12/03/24 04:00 113 H 131/88 12/03/24 04:00 98 F 113 H 16 131/88 90 12/03/24 04:00 Room Air 12/03/24 02:00 126 H 12/03/24 02:00 126 H 16 117/82 97 12/03/24 02:00 126 H 117/82 12/03/24 00:00 94 12/03/24 00:00 94 126/81 12/03/24 00:00 Room Air 12/02/24 23:23 97 F L 124 H 14 126/81 94 12/02/24 23:20 134 H 12/02/24 23:19 134 H 126/81 12/02/24 22:15 Room Air 12/02/24 22:02 101 H 14 134/77 93 12/02/24 20:33 102 H 15 129/80 97 12/02/24 20:26 132 H 12/02/24 18:51 105 H 13 135/87 99 12/02/24 18:43 114 H Exam 2 Narrative: GENERAL APPEARANCE: well developed well nourished male in no acute distress HEENT: normocephalic, atraumatic, normal conjunctiva and sclera, nares patient NECK: no lymphadenopathy, thyromegaly, or JVD MOUTH: normal lips, teeth, and gums CARDIOVASCULAR: RRR, normal S1 and S2, no rub RESPIRATORY: clear to auscultation bilaterally ABDOMEN: soft, nontender, nondistended, positive bowel sounds present EXTREMITIES: no evidence of cyanosis, clubbing, trace edema NEUROLOGICAL: alert and oriented x 3; CN II - XII intact bilaterally; no focal deficits noted Results Lab Results 12/04/24 16:43 12/04/24 04:23 Lab results: Most recent lab results Calcium 8.0 mg/dL (8.4-10.2) L 12/03/24 04:31 Phosphorus 8.0 mg/dL (2.5-4.5) H 12/03/24 04:31 Magnesium 2.3 mg/dL (1.6-2.3) 12/03/24 04:31
[2024-12-03] MEDS: ACETAMINOPHEN 325 MG TABLET 650 MG PO (14:21)
[2024-12-03] MEDS: METOPROLOL TARTRATE 25 MG TABLET PO (17:04)
--- NOTE | 2024-12-03 17:06 | PM.IMPN ---
Progress Note: A&P Assessment and Plan (1) Atrial fibrillation with RVR: Code(s): I48.91 - Unspecified atrial fibrillation Status: Acute Assessment and Plan: Continue Metoprolol Tartrate 25 mg PO q 6hr Diltiazem 60mg PO q hr (2) Hydroureteronephrosis: Code(s): N13.30 - Unspecified hydronephrosis Status: Acute Assessment and Plan: Urology was consulted and he underwent Cystoscopy, right retrograde pyelography and right ureteral stent placement. Attempted left ureteral stent placement. TURBT (large, 5-6cm) (3) Acute hyperkalemia: Code(s): E87.5 - Hyperkalemia Status: Acute Assessment and Plan: Given Lokelma and Albuterol (4) Acute renal failure: Qualifiers: Acute renal failure type: unspecified Qualified Code(s): N17.9 - Acute kidney failure, unspecified Code(s): N17.9 - Acute kidney failure, unspecified Status: Acute Assessment and Plan: Nephrology following Will trend Cr Possible post renal Urology was consulted and he underwent Cystoscopy, right retrograde pyelography and right ureteral stent placement. Attempted left ureteral stent placement. TURBT (large, 5-6cm) (5) Bladder wall thickening: Code(s): N32.89 - Other specified disorders of bladder Status: Acute Assessment and Plan: ass above (6) Acute UTI: Code(s): N39.0 - Urinary tract infection, site not specified Status: Acute Assessment and Plan: Continue Ceftriaxone (7) Prostate CA: Code(s): C61 - Malignant neoplasm of prostate Status: Acute Assessment and Plan: Biopsy results pending PSA and Testosterone pending Oncology consulted Subjective Date/time seen: 12/03/24 17:06 Interval history: 69-year-old male with a history of dyslipidemia, AFib, COPD, BPH, prior tobacco abuse, marijuana use, who presents with the complaint of urinary retention for a few days. He has been taking tamsulosin and it was recently increased per his PCP. For about 3 weeks ago he developed dysuria and he was taking antibiotics with improvement of his dysuria. The dysuria then returned about a week prior to admission. Over the past couple days the patient has had difficulty urinating and emptying his bladder. He was advised to report to the ER. He also reports suprapubic pressure slightly to the right as well as right flank pain. He has had nausea and vomiting and decreased p.o. intake. Denies hematuria, fever, shortness of breath, chest pain. In ED his Cr 12.7(normal baseline 1.3), and AG 19. CT abdomen/pelvis: Bilateral hydroureteronephrosis without an obstructing calculus identified. Abnormal mural thickening within the posterior wall of the bladder for which a malignancy is suspected and for which direct visualization is recommended. Urology was consulted and he underwent Cystoscopy, right retrograde pyelography and right ureteral stent placement. Attempted left ureteral stent placement. 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 His Cr did improve afer TURBT and stent placement (left ureteral). Oncology is consulted due to possibilities of prostate cancer.Order PSA and testosterone.Biopsy pending. Review of Systems Review of Systems: All systems reviewed & are unremarkable except as noted in HPI and below (HPI) Exam Narrative: GENERAL APPEARANCE: well developed well nourished male in no acute distress HEENT: normocephalic, atraumatic, normal conjunctiva and sclera, nares patient NECK: no lymphadenopathy, thyromegaly, or JVD MOUTH: normal lips, teeth, and gums CARDIOVASCULAR: RRR, normal S1 and S2, no rub RESPIRATORY: clear to auscultation bilaterally ABDOMEN: soft, nontender, nondistended, positive bowel sounds present EXTREMITIES: no evidence of cyanosis, clubbing, trace edema NEUROLOGICAL: alert and oriented x 3; CN II - XII intact bilaterally; no focal deficits noted Const: General: comfortable and no acute distress Orientation/consciousness: oriented to person, oriented to place and oriented to time Other: A&O x3 HENMT: Mouth: Yes dry mucous membranes Eyes: Pupils: Equal, round and reactive pupils present Neck: Neck: supple Resp: Effort & Inspection: normal respiratory effort Auscultation: clear to auscultation bilaterally Cardio: Rate: regular rate Rhythm: regular rhythm Heart sounds: no murmurs Peripheral pulses: dorsalis pedis present GI: Inspection: non-distended Auscultation: normal bowel sounds : General: Yes bladder normal to palpation Urinary Catheter: Urinary Catheter: patent and draining and urine cloudy Neuro: General: oriented to person, oriented to place and oriented to time Cranial nerves: Yes Equal, round and reactive pupils present Motor exam (neuro): 5/5 motor strength present throughout Sensory Exam: normal sensation Extrem: General: edema (Trivial pitting edema at the bilateral lower extremities below the knees) Right lower extremity: no edema Left lower extremity: no edema Psych: Mental Status: mental status grossly normal Objective Data Vital Signs Vital Signs: Vital Signs - 24 hr 12/02/24 18:43 12/02/24 18:51 12/02/24 20:26 Temperature Pulse Rate 114 H 105 H 132 H Respiratory Rate 13 Blood Pressure 135/87 Pulse Oximetry 99 Oxygen Delivery Oxygen Flow Rate 12/02/24 20:33 12/02/24 22:02 12/02/24 22:15 Temperature Pulse Rate 102 H 101 H Respiratory Rate 15 14 Blood Pressure 129/80 134/77 Pulse Oximetry 97 93 Oxygen Delivery Room Air Oxygen Flow Rate 12/02/24 23:19 12/02/24 23:20 12/02/24 23:23 Temperature 97 F L Pulse Rate 134 H 134 H 124 H Respiratory Rate 14 Blood Pressure 126/81 126/81 Pulse Oximetry 94 Oxygen Delivery Oxygen Flow Rate 12/03/24 00:00 12/03/24 00:00 12/03/24 00:00 Temperature Pulse Rate 94 94 Respiratory Rate Blood Pressure 126/81 Pulse Oximetry Oxygen Delivery Room Air Oxygen Flow Rate 12/03/24 02:00 12/03/24 02:00 12/03/24 02:00 Temperature Pulse Rate 126 H 126 H 126 H Respiratory Rate 16 Blood Pressure 117/82 117/82 Pulse Oximetry 97 Oxygen Delivery Oxygen Flow Rate 12/03/24 04:00 12/03/24 04:00 12/03/24 04:00 Temperature 98 F Pulse Rate 113 H 113 H Respiratory Rate 16 Blood Pressure 131/88 131/88 Pulse Oximetry 90 Oxygen Delivery Room Air Oxygen Flow Rate 12/03/24 04:00 12/03/24 06:00 12/03/24 06:00 Temperature Pulse Rate 86 124 H 124 H Respiratory Rate 18 Blood Pressure 126/89 126/89 Pulse Oximetry 96 Oxygen Delivery Oxygen Flow Rate 12/03/24 06:00 12/03/24 07:31 12/03/24 08:00 Temperature 97.6 F Pulse Rate 126 H 90 Respiratory Rate 20 Blood Pressure 123/73 Pulse Oximetry 92 93 Oxygen Delivery Room Air Oxygen Flow Rate 12/03/24 08:00 12/03/24 08:00 12/03/24 08:41 Temperature Pulse Rate 87 102 H Respiratory Rate Blood Pressure Pulse Oximetry 93 Oxygen Delivery Room Air Oxygen Flow Rate 12/03/24 10:00 12/03/24 10:00 12/03/24 10:30 Temperature 97.8 F 98.1 F Pulse Rate 110 H 121 H 91 Respiratory Rate 20 14 Blood Pressure 122/80 134/99 H Pulse Oximetry 92 100 Oxygen Delivery Room Air Oxygen Flow Rate 12/03/24 11:40 12/03/24 11:55 12/03/24 12:10 Temperature 97.1 F L Pulse Rate 94 103 H 101 H Respiratory Rate 20 18 14 Blood Pressure 131/87 118/86 125/87 Pulse Oximetry 97 94 91 Oxygen Delivery Simple Face Mask Simple Face Mask Nasal Cannula Oxygen Flow Rate 8 8 3 12/03/24 12:25 12/03/24 12:40 12/03/24 12:55 Temperature Pulse Rate 110 H 94 104 H Respiratory Rate 16 12 14 Blood Pressure 122/74 119/72 137/91 H Pulse Oximetry 90 94 91 Oxygen Delivery Nasal Cannula Nasal Cannula Nasal Cannula Oxygen Flow Rate 4 4 4 12/03/24 13:10 12/03/24 13:25 12/03/24 14:00 Temperature 97.4 F L Pulse Rate 98 107 H 94 Respiratory Rate 12 16 20 Blood Pressure 129/70 131/90 132/75 Pulse Oximetry 91 92 94 Oxygen Delivery Nasal Cannula Nasal Cannula Oxygen Flow Rate 4 3 12/03/24 14:00 12/03/24 15:23 12/03/24 15:55 Temperature 97.7 F Pulse Rate 96 126 H Respiratory Rate 20 Blood Pressure 134/84 Pulse Oximetry 90 92 Oxygen Delivery High Flow Nasal Cannula Oxygen Flow Rate 6 12/03/24 17:04 Temperature Pulse Rate 112 H Respiratory Rate Blood Pressure Pulse Oximetry Oxygen Delivery Oxygen Flow Rate Intake/Output Intake/Output: Intake & Output 11/30/24 12/01/24 12/02/24 12/03/24 23:59 23:59 23:59 23:59 Intake Total 1999 2535.9 Output Total 1700 Balance 1999 835.9 Meds/Results Medications: Active Medications Generic Name Dose Route Start Last Admin Trade Name Freq PRN Reason Stop Dose Admin Acetaminophen 650 mg 12/03/24 14:07 12/03/24 14:21 Acetaminophen 325 Mg Tablet PO 650 mg Q4H PRN Administration Headache Albuterol 2 puff 12/02/24 23:29 Albuterol Sulfate (*Sp) Aerosol 1 Puff INHALATION Q6HRT PRN shortness of breath or wheezing Atorvastatin Calcium 40 mg 12/03/24 09:00 12/03/24 08:41 Atorvastatin 40 Mg Tablet PO 40 mg DAILY BANG Administration Diltiazem HCl 60 mg 12/03/24 08:45 12/03/24 17:04 Diltiazem Hcl 60 Mg Tablet PO 60 mg Q6HR BANG Administration Fentanyl Citrate 25 mcg 12/03/24 10:17 12/03/24 12:35 Fentanyl Citrate Inj (*Crx) 100 Mcg/2 Ml Vial IV PUSH 25 mcg Q2M PRN Administration Pain Fluticasone Propionate 1 spray 12/03/24 09:00 12/03/24 08:40 Fluticasone Propionate 0.05% Na Spr 16 Gm Btl (*Bkc) NASAL 1 spray DAILY BANG Administration Sodium Chloride 1,000 mls @ 100 mls/hr 12/02/24 20:30 12/03/24 17:05 Normal Saline Iv IV CONT 150 mls/hr .Q10H BANG Administration Ceftriaxone Sodium 1 gm in 50 mls @ 100 mls/hr 12/03/24 22:00 Rocephin 1 Gm/Ns 50 Ml IVPB Q24H BANG Lactated Ringer's 1,000 mls @ 30 mls/hr 12/03/24 10:20 12/03/24 11:40 Lr - Lactated Ringers Iv IV CONT Infused .Q24H BANG Infusion Lactated Ringer's 1,000 mls @ 30 mls/hr 12/03/24 10:20 12/03/24 13:30 Lr - Lactated Ringers Iv IV CONT Infused .Q24H BANG Infusion Metoprolol Tartrate 25 mg 12/03/24 12:00 12/03/24 17:04 Metoprolol Tartrate 25 Mg Tablet PO 25 mg Q6HR BANG Administration Ondansetron HCl 4 mg 12/03/24 06:23 12/03/24 06:33 Ondansetron Hcl Odt 4 Mg Tablet PO 4 mg Q6H PRN Administration Nausea And Vomiting Ondansetron HCl 4 mg 12/03/24 10:17 Ondansetron Inj 4 Mg/2 Ml Vial IV PUSH ONCE PRN Nausea Perflutren Lipid Microsphere 0 ml 12/03/24 08:47 Perflutren Lipid Microspheres 1.5 Ml Vial Diluted To 10 Ml Total Volume IV PUSH 12/06/24 08:47 ONCE PRN adequate visualization Protocol Fluticasone/Salmeterol 2 puff 12/03/24 08:00 12/03/24 07:26 Fluticasone/Salmeterol 115-21 Mcg Inhaler 1 Puff INHALATION 2 puff Q12HRT BANG Administration Tamsulosin HCl 0.4 mg 12/03/24 09:00 12/03/24 08:41 Tamsulosin Hcl 0.4 Mg Capsule PO 0.4 mg DAILY BANG Administration Radiology Results: ITS Impressions Abdomen/Pelvis CT 12/02/24 18:41 IMPRESSION: Bilateral hydroureteronephrosis without an obstructing calculus identified. Abnormal mural thickening within the posterior wall of the bladder for which a malignancy is suspected and for which direct visualization is recommended. Chest X-Ray 12/03/24 16:23 IMPRESSION: Findings which represent a significant interval change from less than 24 hours earlier, now demonstrating coarse interstitial lung markings and small bilateral pleural effusions. Cross-sectional imaging (noncontrast enhanced CT examination of the chest) may be performed for further evaluation. Labs Labs: Laboratory Results - last 24 hr 12/02/24 12/02/24 12/02/24 18:14 20:11 20:44 WBC 8.7 RBC 4.15 L Hgb 13.9 L D Hct 42.4 MCV 102.2 H MCH 33.5 MCHC 32.8 RDW 13.4 Plt Count 197 MPV 11.2 H Immature Gran % (Auto) 0.6 H Neut % (Auto) 73.0 Lymph % (Auto) 13.6 L [place] % (Auto) 11.5 H Eos % (Auto) 1.0 Baso % (Auto) 0.3 Lymph # (Auto) 1.18 [place] # (Auto) 1.0 H Eos # (Auto) 0.1 Baso # (Auto) 0.0 Abs Immat Gran (auto) 0.05 H Absolute Neuts (auto) 6.3 Absolute Nucleated RBC 0.000 Nucleated RBC % 0.0 PT INR APTT Sodium 138 Potassium 5.2 H Chloride 103 Carbon Dioxide 16 L Anion Gap 19 H BUN 89 H D Creatinine 12.77 H Estim Creat Clear Calc 6 Estimated GFR 4 L Glucose 93 Lactic Acid 1.2 Calcium 8.7 Phosphorus 8.3 H Magnesium 2.6 H Total Bilirubin 0.3 AST 14 L ALT 14 Alkaline Phosphatase 93 Total Protein 8.0 Albumin 3.8 Lipase 115 Urine Color Yellow Urine Appearance Cloudy H Urine pH 6.5 Ur Specific [place] 1.011 Urine Protein 3+ H Urine Glucose (UA) Negative Urine Ketones Negative Ur Blood (Man) 2+ H Urine Nitrate Negative Urine Bilirubin Negative Urine Urobilinogen 0.2 Add Ur Microanalysis Reviewed Leukocyte Esterase Rfl 2+ H Urine RBC 51-100 H Urine WBC 51-100 H Ur Squamous Epith Cells Moderate Urine Bacteria None seen Urine Casts 0-2 12/02/24 12/03/24 12/03/24 23:42 04:31 04:32 WBC 10.4 H RBC 3.69 L Hgb 12.5 L Hct 37.9 L MCV 102.7 H MCH 33.9 MCHC 33.0 RDW 13.4 Plt Count 174 MPV 11.8 H Immature Gran % (Auto) 0.5 Neut % (Auto) 83.9 H Lymph % (Auto) 6.8 L [place] % (Auto) 8.5 Eos % (Auto) 0.1 Baso % (Auto) 0.2 Lymph # (Auto) 0.71 L [place] # (Auto) 0.9 H Eos # (Auto) 0.0 Baso # (Auto) 0.0 Abs Immat Gran (auto) 0.05 H Absolute Neuts (auto) 8.7 H Absolute Nucleated RBC 0.000 Nucleated RBC % 0.0 PT INR APTT Sodium 139 138 Potassium 4.9 5.7 H Chloride 108 H 110 H Carbon Dioxide 13 L 9 L Anion Gap 18 H 19 H BUN 86 H 88 H Creatinine 12.46 H 12.90 H Estim Creat Clear Calc 6 6 Estimated GFR 4 L 4 L Glucose 88 81 Lactic Acid Calcium 8.2 L 8.0 L Phosphorus 8.0 H Magnesium 2.4 H 2.3 Total Bilirubin 0.3 AST 12 L ALT 11 Alkaline Phosphatase 85 Total Protein 7.0 Albumin 3.2 L Lipase Urine Color Urine Appearance Urine pH Ur Specific [place] Urine Protein Urine Glucose (UA) Urine Ketones Ur Blood (Man) Urine Nitrate Urine Bilirubin Urine Urobilinogen Add Ur Microanalysis Leukocyte Esterase Rfl Urine RBC Urine WBC Ur Squamous Epith Cells Urine Bacteria Urine Casts 12/03/24 06:55 WBC RBC Hgb Hct MCV MCH MCHC RDW Plt Count MPV Immature Gran % (Auto) Neut % (Auto) Lymph % (Auto) [place] % (Auto) Eos % (Auto) Baso % (Auto) Lymph # (Auto) [place] # (Auto) Eos # (Auto) Baso # (Auto) Abs Immat Gran (auto) Absolute Neuts (auto) Absolute Nucleated RBC Nucleated RBC % PT 16.5 H INR 1.3 APTT 32.0 Sodium Potassium Chloride Carbon Dioxide Anion Gap BUN Creatinine Estim Creat Clear Calc Estimated GFR Glucose Lactic Acid Calcium Phosphorus Magnesium Total Bilirubin AST ALT Alkaline Phosphatase Total Protein Albumin Lipase Urine Color Urine Appearance Urine pH Ur Specific [place] Urine Protein Urine Glucose (UA) Urine Ketones Ur Blood (Man) Urine Nitrate Urine Bilirubin Urine Urobilinogen Add Ur Microanalysis Leukocyte Esterase Rfl Urine RBC Urine WBC Ur Squamous Epith Cells Urine Bacteria Urine Casts Hospitalist MIPS Advance Care Plan I have confirmed that the patient's Advanced Care Plan is present, code status is documented, or surrogate decision maker is listed in patient medical record.: Yes Medication Reconciliation I have utilized all available resources to obtain, update and review the patients current medications (includes all prescriptions, OTC, herbals, cannabis, and nutritional supplements).: Yes
[2024-12-03 17:36] LABS: Anion Gap 13 mmol/L (4-12); Blood Urea Nitrogen 77 mg/dL (9-20); Calcium 8.2 mg/dL (8.4-10.2); Carbon Dioxide 15 mmol/L (22-30); Chloride 110 mmol/L (98-107); Estimated CRCL calculation 7 ml/min; Estimated Glomerular Filt Rate 5; Glucose 127 mg/dL (65-110); Potassium 5.1 mmol/L (3.4-5.0); Sodium 138 mmol/L (137-145)
[2024-12-03 19:21] LABS: Prostate Specific Antigen 5.1 ng/mL (< OR = 4.0)
--- NOTE | 2024-12-03 19:30 | WPDONCCN ---
Assessment and Plan Assessment and plan (1) Mass of bladder: Code(s): N32.89 - Other specified disorders of bladder Status: Acute Assessment and Plan: Patient presented to ER on 12/02/2024 with inability to urinate for 5 days prior to admission. Further workup in the ER with CBC and CMP showed a creatinine of 12.7 and patient in acute renal failure. A CT scan of abdomen and pelvis without contrast was obtained which showed bilateral hydroureteronephrosis without stone. There was significant perinephric inflammation. There was mural wall thickening of the posterior wall of the bladder concerning for bladder cancer. Patient was seen by urology team and underwent cystoscopy on 12/03/2024. The cystoscopy showed very large dense solid neoplasm arising at the bladder neck and extending into the trigone more on the left than the right. The large section of mass was resected from the left hemanth trigone in attempt to find the left ureteral orifice but urologist was not able to identify left ureteral orifice. Right ureteral orifice was identified and a stent was placed. About 5-6 cm of the mass was resected via TURBT. Oncology is consulted for possible bladder or prostate cancer. CT of abdomen and pelvis without contrast could not comment on regional lymphadenopathy due to absence of contrast. We will await pathology as this could be primary bladder versus prostate cancer. When we have a pathology report we will further advice on management plan. HPI Data of Consult Date/Time: 12/03/24 19:30 Requesting Physician: Angie Bardales MD Primary Care Provider: Raya Lozoya, PA Consult Narrative Narrative: Stanislav Cho is a 69 year old male who presented to ER on 12/02/2024 for urinary retention of 4 days prior to admission. Patient has been on tamsulosin 0.4 mg but was not able to empty bladder. Further workup in the ER with CBC and CMP showed a creatinine of 12.7 and patient in acute renal failure. A CT scan of abdomen and pelvis without contrast was obtained which showed bilateral hydroureteronephrosis without stone. There was significant perinephric inflammation. There was mural wall thickening of the posterior wall of the bladder concerning for bladder cancer. Patient was seen by urology team and underwent cystoscopy today 12/03/2024. The cystoscopy showed very large dense solid neoplasm arising at the bladder neck and extending into the trigone more on the left than the right. The large section of mass was resected from the left hemanth trigone in attempt to find the left ureteral orifice but urologist was not able to identify left ureteral orifice. Right ureteral orifice was identified and a stent was placed. About 5-6 cm of the mass was resected via TURBT. Oncology is consulted for possible bladder or prostate cancer. CT of abdomen and pelvis without contrast could not comment on regional lymphadenopathy due to absence of contrast. Review of Systems Review of Systems: Patient reports that he feels much better than before. He is able to drain the urine through the catheter. He denies any fever, chills, night sweats. He denies any chest pain, shortness of breath, cough, hemoptysis. He denies any dizziness, lightheadedness. There has been difficulty passing bowels as well and patient said that he had to strain to pass the bowels. Rest of the 12 point review of system is negative PMFSH Past Medical History Medical History Emphysema lung Acute arthritis Rheumatoid osteoperiostitis Afib Surgical History Surgical History History of surgery on arm History of shoulder surgery Family History Family History Sibling Heart disease Skin cancer Social History Social History Smoking status: Former smoker Tobacco type: cigarettes Smoking end date: 08/12/16 Alcohol intake: former Drinks per week: 4 Substance use: current Substance use type: marijuana Other substance usage details: daily use Do You Feel Safe in your Home?: Yes Lack of Transportation: No Lack of Food: Never True Current Housing: I Have Housing Concerned About Future Housing: No Difficulty Paying Gas/Electric Bills: No Difficulty Paying for Meds: No Currently Unemployed: No Education: High School Diploma/GED Difficulty w/ Childcare or Family Care: No Living arrangements: alone Spiritual care concerns: No Meds Home Medications and Allergies Home Medications ?Medication ?Instructions ?Recorded ?Confirmed ?Type ergocalciferol (vitamin D2) 1,250 1,250 mcg PO WEEKLY 02/09/21 12/02/24 History mcg (50,000 unit) capsule fluticasone propionate 50 1 spray intranasal DAILY 02/09/21 12/02/24 History mcg/actuation nasal spray,suspension (Allergy Relief (fluticasone)) nitroglycerin 0.4 mg sublingual 0.4 mg sublingual Q5M PRN Chest 02/09/21 12/02/24 History tablet Pain vitamin B12 0.5 mg-folic acid 1 mg 1 tablet PO DAILY 02/09/21 12/02/24 History tablet aspirin 325 mg tablet,delayed 325 mg PO DAILY 12/20/21 12/02/24 History release atorvastatin 40 mg tablet 40 mg PO DAILY 12/27/21 12/02/24 History tamsulosin 0.4 mg capsule 0.4 mg PO DAILY 02/18/23 12/02/24 History metoprolol succinate 50 mg 50 mg PO DAILY #30 tabs 07/01/24 12/02/24 Rx tablet,extended release 24 hr albuterol sulfate 90 mcg/actuation 2 puff inhalation Q6H PRN 12/02/24 12/02/24 History aerosol inhaler shortness of breath or wheezing budesonide-formoterol HFA 160 2 puff inhalation DAILY 12/02/24 12/02/24 History mcg-4.5 mcg/actuation aerosol inhaler (Symbicort) fluticasone propionate 115 2 puff inhalation DAILY 12/02/24 12/02/24 History mcg-salmeterol 21 mcg/actuation HFA inhaler (Advair HFA) Allergies Allergy/AdvReac Type Severity Reaction Status Date / Time No Known Allergies Allergy Verified 12/02/24 22:21 Vital Signs Vital Signs - 24 hr 12/02/24 20:26 12/02/24 20:33 12/02/24 22:02 Temperature Pulse Rate 132 H 102 H 101 H Respiratory Rate 15 14 Blood Pressure 129/80 134/77 Pulse Oximetry 97 93 Oxygen Delivery Oxygen Flow Rate 12/02/24 22:15 12/02/24 23:19 12/02/24 23:20 Temperature Pulse Rate 134 H 134 H Respiratory Rate Blood Pressure 126/81 Pulse Oximetry Oxygen Delivery Room Air Oxygen Flow Rate 12/02/24 23:23 12/03/24 00:00 12/03/24 00:00 Temperature 36.1 C L Pulse Rate 124 H 94 Respiratory Rate 14 Blood Pressure 126/81 126/81 Pulse Oximetry 94 Oxygen Delivery Room Air Oxygen Flow Rate 12/03/24 00:00 12/03/24 02:00 12/03/24 02:00 Temperature Pulse Rate 94 126 H 126 H Respiratory Rate 16 Blood Pressure 117/82 117/82 Pulse Oximetry 97 Oxygen Delivery Oxygen Flow Rate 12/03/24 02:00 12/03/24 04:00 12/03/24 04:00 Temperature 36.6 C Pulse Rate 126 H 113 H Respiratory Rate 16 Blood Pressure 131/88 Pulse Oximetry 90 Oxygen Delivery Room Air Oxygen Flow Rate 12/03/24 04:00 12/03/24 04:00 12/03/24 06:00 Temperature Pulse Rate 113 H 86 124 H Respiratory Rate Blood Pressure 131/88 126/89 Pulse Oximetry Oxygen Delivery Oxygen Flow Rate 12/03/24 06:00 12/03/24 06:00 12/03/24 07:31 Temperature Pulse Rate 124 H 126 H Respiratory Rate 18 Blood Pressure 126/89 Pulse Oximetry 96 92 Oxygen Delivery Room Air Oxygen Flow Rate 12/03/24 08:00 12/03/24 08:00 12/03/24 08:00 Temperature 36.4 C Pulse Rate 90 87 Respiratory Rate 20 Blood Pressure 123/73 Pulse Oximetry 93 93 Oxygen Delivery Room Air Oxygen Flow Rate 12/03/24 08:41 12/03/24 10:00 12/03/24 10:00 Temperature 36.6 C Pulse Rate 102 H 110 H 121 H Respiratory Rate 20 Blood Pressure 122/80 Pulse Oximetry 92 Oxygen Delivery Oxygen Flow Rate 12/03/24 10:30 12/03/24 11:40 12/03/24 11:55 Temperature 36.7 C 36.2 C L Pulse Rate 91 94 103 H Respiratory Rate 14 20 18 Blood Pressure 134/99 H 131/87 118/86 Pulse Oximetry 100 97 94 Oxygen Delivery Room Air Simple Face Mask Simple Face Mask Oxygen Flow Rate 8 8 12/03/24 12:10 12/03/24 12:25 12/03/24 12:40 Temperature Pulse Rate 101 H 110 H 94 Respiratory Rate 14 16 12 Blood Pressure 125/87 122/74 119/72 Pulse Oximetry 91 90 94 Oxygen Delivery Nasal Cannula Nasal Cannula Nasal Cannula Oxygen Flow Rate 3 4 4 12/03/24 12:55 12/03/24 13:10 12/03/24 13:25 Temperature Pulse Rate 104 H 98 107 H Respiratory Rate 14 12 16 Blood Pressure 137/91 H 129/70 131/90 Pulse Oximetry 91 91 92 Oxygen Delivery Nasal Cannula Nasal Cannula Nasal Cannula Oxygen Flow Rate 4 4 3 12/03/24 14:00 12/03/24 14:00 12/03/24 15:23 Temperature 36.3 C L Pulse Rate 94 96 Respiratory Rate 20 Blood Pressure 132/75 Pulse Oximetry 94 90 Oxygen Delivery High Flow Nasal Cannula Oxygen Flow Rate 6 12/03/24 15:55 12/03/24 16:00 12/03/24 16:00 Temperature 36.5 C Pulse Rate 126 H 91 Respiratory Rate 20 Blood Pressure 134/84 Pulse Oximetry 92 92 Oxygen Delivery High Flow Nasal Cannula Oxygen Flow Rate 6 12/03/24 17:04 12/03/24 18:00 Temperature Pulse Rate 112 H 112 H Respiratory Rate Blood Pressure Pulse Oximetry Oxygen Delivery Oxygen Flow Rate Exam Narrative: General: Alert and oriented x3, ill-appearing male in no acute distress HEENT: EOMI, no scleral icterus, no gross abnormalities of the head noted CV: Regular rate and rhythm no murmur gallops or rubs RESP: Lungs clear to auscultation bilaterally Abdomen: Soft nontender nondistended bowel sounds present Neuro: No 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 Results Labs 12/03/24 04:32 12/03/24 16:40 Labs: Short CBC 12/03/24 Range/Units 04:32 WBC 10.4 H (4.5-10.0) K/mm3 Hgb 12.5 L (14.0-18.0) g/dL Hct 37.9 L (42.0-52.0) % Plt Count 174 (150-375) k/mm3 [facility] 12/02/24 12/03/24 12/03/24 23:42 04:31 16:40 Sodium 139 138 138 Potassium 4.9 5.7 H 5.1 H Chloride 108 H 110 H 110 H Carbon Dioxide 13 L 9 L 15 L BUN 86 H 88 H 77 H D Creatinine 12.46 H 12.90 H 10.10 H Glucose 88 81 127 H Calcium 8.2 L 8.0 L 8.2 L Liver Function 12/03/24 Range/Units 04:31 Total Bilirubin 0.3 (0.2-1.3) mg/dL AST 12 L (17-59) U/L ALT 11 (6-50) U/L Alkaline Phosphatase 85 (38-126) U/L Albumin 3.2 L (3.5-5.1) g/dL Urine 12/02/24 Range/Units 20:11 Urine Color Yellow (Yellow) Urine Appearance Cloudy H (Clear) Urine pH 6.5 (5.0-9.0) Ur Specific [place] 1.011 (1.001-1.035) Urine Protein 3+ H (Negative) mg/dL Urine Glucose (UA) Negative (Negative) mg/dL
[2024-12-04] VITALS (35 sets, daily range): BP systolic 112–165; BP diastolic 62–85; PULSE 60–129; RESP 16–32; TEMP 36.3–36.6; O2SAT 90–100
[2024-12-04] MEDS: METOPROLOL TARTRATE 25 MG TABLET PO ×2 (01:21→06:23)
[2024-12-04] MEDS: dilTIAZem HCL 60 MG TABLET PO ×2 (01:21→06:23)
[2024-12-04] MEDS: SODIUM CHLORIDE 0.9% IV 1,000 ML 75 ML IV CONT (05:02)
[2024-12-04 05:06] LABS: Mean Corpuscular HGB Conc 33.3 g/dl (32-36); Mean Corpuscular Hemoglobin 34.4 pg (26-34); Mean Corpuscular Volume 103.2 fl (80-100); Mean Platelet Volume 11.8 fl (7.4-10.4); Platelet Count Result 167 k/mm3 (150-375); Red Blood Count 3.49 M/mm3 (4.6-6.20); Red Cell Distribution Width 13.8 % (11.5-14.5); White Blood Count 10.5 K/mm3 (4.5-10.0)
[2024-12-04 05:19] LABS: Alanine Aminotransferase 15 U/L (6-50); Albumin Level 3.2 g/dL (3.5-5.1); Alkaline Phosphatase 75 U/L (38-126); Anion Gap 11 mmol/L (4-12); Aspartate Amino Transferase 16 U/L (17-59); Bilirubin,Total 0.4 mg/dL (0.2-1.3); Blood Urea Nitrogen 60 mg/dL (9-20); Calcium 8.3 mg/dL (8.4-10.2); Carbon Dioxide 16 mmol/L (22-30); Chloride 112 mmol/L (98-107); Estimated CRCL calculation 11 ml/min; Estimated Glomerular Filt Rate 8; Glucose 129 mg/dL (65-110); Potassium 5.4 mmol/L (3.4-5.0); Sodium 139 mmol/L (137-145)
[2024-12-04 05:54] LABS: Hepatitis B Surface Antigen Negative (Negative)
[2024-12-04 06:11] LABS: Hepatitis B Surface Anti Res Negative
--- NOTE | 2024-12-04 07:04 | WPDUROPN2 ---
Progress Note: A&P Assessment and Plan (1) Acute renal failure: Qualifiers: Acute renal failure type: unspecified Qualified Code(s): N17.9 - Acute kidney failure, unspecified Code(s): N17.9 - Acute kidney failure, unspecified Status: Acute (2) Hydroureteronephrosis: Code(s): N13.30 - Unspecified hydronephrosis Status: Acute (3) Mass of bladder: Code(s): N32.89 - Other specified disorders of bladder Status: Acute Assessment and Plan: Patient feeling much better and renal function dramatically improved with solitary right stent placement (unable to find left ureter). I had a long talk with him this morning about urological/renal issues, as below. Acute Problem HOANG d/t bilateral ureteral obstruction. Much improved with right ureteral stent. Next week, once affects of ASA have worn off, I would anticipate placement of a left percutaneous nephrostomy tube with eventual internalization of ureteral stent. This will maximize his renal function. Long-term Problem Patient has an obvious neoplastic mass in his bladder base that is obstructing both ureters. My clinical suspicion, and frozen section on tissue obtained yesterday, support this is likely a poorly differentiated muscle invasive urothelial carcinoma although can not completely exclude prostate cancer. I explained to him that this is muscle invasive bladder cancer he will 1st need thorough staging evaluation with CT-chest, abd., pelvis + bone scan +/- PET scan (med. onc. discretion). I further explained that if this is clinically localized traditional treatment would be neoadjuvant chemotherapy followed by cystectomy with urinary diversion. Obviously, if this turns out to be prostate cancer our approach will dramatically different. Patient understood our conversation well, expressed wishes to proceed as medically indicated. Subjective Subjective Date/Time Seen: 12/04/24 07:04 Interval history: Feeling much better today - no SOB. Tolerating right stent and catheter Review of Systems Cardiovascular: Cardiovascular: Denies chest pain, Denies lightheadedness, Denies palpitations and Denies dyspnea Respiratory: Respiratory: Denies dyspnea Gastrointestinal: Gastrointestinal: Denies diarrhea, Denies nausea and Denies vomiting Genitourinary: Genitourinary: Denies hematuria and Denies dysuria Endocrine: Endocrine: Denies palpitations Exam Const: General: no acute distress Resp: Effort & Inspection: normal respiratory effort GI: Inspection: non-distended GI Palp: No abdominal tenderness and No Guarding due to palpation present (GI) Auscultation: normal bowel sounds Urinary Catheter: Urinary Catheter: patent and draining and urine clear Objective Data Vital Signs Vital Signs: Vital Signs - 24 hr 12/03/24 07:31 12/03/24 08:00 12/03/24 08:00 Temperature 97.6 F Pulse Rate 90 Respiratory Rate 20 Blood Pressure 123/73 Pulse Oximetry 92 93 93 Oxygen Delivery Room Air Room Air Oxygen Flow Rate Fraction of Inspired Oxygen 12/03/24 08:00 12/03/24 08:41 12/03/24 10:00 Temperature Pulse Rate 87 102 H 110 H Respiratory Rate Blood Pressure Pulse Oximetry Oxygen Delivery Oxygen Flow Rate Fraction of Inspired Oxygen 12/03/24 10:00 12/03/24 10:30 12/03/24 11:40 Temperature 97.8 F 98.1 F 97.1 F L Pulse Rate 121 H 91 94 Respiratory Rate 20 14 20 Blood Pressure 122/80 134/99 H 131/87 Pulse Oximetry 92 100 97 Oxygen Delivery Room Air Simple Face Mask Oxygen Flow Rate 8 Fraction of Inspired Oxygen 12/03/24 11:55 12/03/24 12:10 12/03/24 12:25 Temperature Pulse Rate 103 H 101 H 110 H Respiratory Rate 18 14 16 Blood Pressure 118/86 125/87 122/74 Pulse Oximetry 94 91 90 Oxygen Delivery Simple Face Mask Nasal Cannula Nasal Cannula Oxygen Flow Rate 8 3 4 Fraction of Inspired Oxygen 12/03/24 12:40 12/03/24 12:55 12/03/24 13:10 Temperature Pulse Rate 94 104 H 98 Respiratory Rate 12 14 12 Blood Pressure 119/72 137/91 H 129/70 Pulse Oximetry 94 91 91 Oxygen Delivery Nasal Cannula Nasal Cannula Nasal Cannula Oxygen Flow Rate 4 4 4 Fraction of Inspired Oxygen 12/03/24 13:25 12/03/24 14:00 12/03/24 14:00 Temperature 97.4 F L Pulse Rate 107 H 94 96 Respiratory Rate 16 20 Blood Pressure 131/90 132/75 Pulse Oximetry 92 94 Oxygen Delivery Nasal Cannula Oxygen Flow Rate 3 Fraction of Inspired Oxygen 12/03/24 15:23 12/03/24 15:55 12/03/24 16:00 Temperature 97.7 F Pulse Rate 126 H Respiratory Rate 20 Blood Pressure 134/84 Pulse Oximetry 90 92 92 Oxygen Delivery High Flow Nasal Cannula High Flow Nasal Cannula Oxygen Flow Rate 6 6 Fraction of Inspired Oxygen 12/03/24 16:00 12/03/24 17:04 12/03/24 18:00 Temperature Pulse Rate 91 112 H 112 H Respiratory Rate Blood Pressure Pulse Oximetry Oxygen Delivery Oxygen Flow Rate Fraction of Inspired Oxygen 12/03/24 20:00 12/03/24 20:00 12/03/24 20:00 Temperature 97.7 F Pulse Rate 90 81 Respiratory Rate 20 Blood Pressure 142/94 H Pulse Oximetry 96 91 Oxygen Delivery High Flow Nasal Cannula Oxygen Flow Rate 6 Fraction of Inspired Oxygen 12/03/24 20:34 12/03/24 20:35 12/03/24 22:00 Temperature Pulse Rate 71 71 87 Respiratory Rate 20 20 Blood Pressure Pulse Oximetry 95 Oxygen Delivery High Flow Nasal Cannula Oxygen Flow Rate 44 Fraction of Inspired Oxygen 6 12/04/24 00:00 12/04/24 00:00 12/04/24 00:00 Temperature 97.7 F Pulse Rate 83 84 Respiratory Rate 20 Blood Pressure 114/62 Pulse Oximetry 90 94 Oxygen Delivery High Flow Nasal Cannula Oxygen Flow Rate 6 Fraction of Inspired Oxygen 12/04/24 00:57 12/04/24 01:21 12/04/24 02:00 Temperature Pulse Rate 82 86 83 Respiratory Rate Blood Pressure Pulse Oximetry 91 Oxygen Delivery Autopap Oxygen Flow Rate Fraction of Inspired Oxygen 12/04/24 02:37 12/04/24 03:45 12/04/24 04:00 Temperature 97.7 F Pulse Rate 87 61 Respiratory Rate 32 H Blood Pressure 125/73 Pulse Oximetry 92 94 96 Oxygen Delivery Autopap High Flow Nasal Cannula Oxygen Flow Rate 6 Fraction of Inspired Oxygen 12/04/24 04:00 12/04/24 05:44 12/04/24 06:00 Temperature Pulse Rate 64 65 66 Respiratory Rate Blood Pressure Pulse Oximetry 94 Oxygen Delivery Autopap Oxygen Flow Rate Fraction of Inspired Oxygen 12/04/24 06:23 Temperature Pulse Rate 73 Respiratory Rate Blood Pressure Pulse Oximetry Oxygen Delivery Oxygen Flow Rate Fraction of Inspired Oxygen Intake/Output Intake/Output: Intake & Output 12/01/24 12/02/24 12/03/24 12/04/24 23:59 23:59 23:59 23:59 Intake Total 1999 3513.4 792.5 Output Total 3200 2500 Balance 1999 313.4 -1707.5 Meds/Results Medications: Active Medications Generic Name Dose Route Start Last Admin Trade Name Freq PRN Reason Stop Dose Admin Acetaminophen 650 mg 12/03/24 14:07 12/03/24 14:21 Acetaminophen 325 Mg Tablet PO 650 mg Q4H PRN Administration Headache Albuterol 2 puff 12/02/24 23:29 Albuterol Sulfate (*Sp) Aerosol 1 Puff INHALATION Q6HRT PRN shortness of breath or wheezing Atorvastatin Calcium 40 mg 12/03/24 09:00 12/03/24 08:41 Atorvastatin 40 Mg Tablet PO 40 mg DAILY BANG Administration Diltiazem HCl 60 mg 12/03/24 08:45 12/04/24 06:23 Diltiazem Hcl 60 Mg Tablet PO 60 mg Q6HR BANG Administration Fentanyl Citrate 25 mcg 12/03/24 10:17 12/03/24 12:35 Fentanyl Citrate Inj (*Crx) 100 Mcg/2 Ml Vial IV PUSH 25 mcg Q2M PRN Administration Pain Fluticasone Propionate 1 spray 12/03/24 09:00 12/03/24 08:40 Fluticasone Propionate 0.05% Na Spr 16 Gm Btl (*Bkc) NASAL 1 spray DAILY BANG Administration Sodium Chloride 1,000 mls @ 75 mls/hr 12/02/24 20:30 12/04/24 05:02 Normal Saline Iv IV CONT 75 mls/hr .[id number] BANG Administration Ceftriaxone Sodium 1 gm in 50 mls @ 100 mls/hr 12/03/24 22:00 12/03/24 21:44 Rocephin 1 Gm/Ns 50 Ml IVPB 100 mls/hr Q24H BANG Administration Lactated Ringer's 1,000 mls @ 30 mls/hr 12/03/24 10:20 12/03/24 11:40 Lr - Lactated Ringers Iv IV CONT Infused .Q24H BANG Infusion Lactated Ringer's 1,000 mls @ 30 mls/hr 12/03/24 10:20 12/03/24 13:30 Lr - Lactated Ringers Iv IV CONT Infused .Q24H BANG Infusion Metoprolol Tartrate 25 mg 12/03/24 12:00 12/04/24 06:23 Metoprolol Tartrate 25 Mg Tablet PO 25 mg Q6HR BANG Administration Ondansetron HCl 4 mg 12/03/24 06:23 12/03/24 06:33 Ondansetron Hcl Odt 4 Mg Tablet PO 4 mg Q6H PRN Administration Nausea And Vomiting Ondansetron HCl 4 mg 12/03/24 10:17 Ondansetron Inj 4 Mg/2 Ml Vial IV PUSH ONCE PRN Nausea Perflutren Lipid Microsphere 0 ml 12/03/24 08:47 Perflutren Lipid Microspheres 1.5 Ml Vial Diluted To 10 Ml Total Volume IV PUSH 12/06/24 08:47 ONCE PRN adequate visualization Protocol Fluticasone/Salmeterol 2 puff 12/03/24 08:00 12/03/24 20:31 Fluticasone/Salmeterol 115-21 Mcg Inhaler 1 Puff INHALATION 2 puff Q12HRT BANG Administration Tamsulosin HCl 0.4 mg 12/03/24 09:00 12/03/24 08:41 Tamsulosin Hcl 0.4 Mg Capsule PO 0.4 mg DAILY BANG Administration Radiology Results: ITS Impressions Abdomen/Pelvis CT 12/02/24 18:41 IMPRESSION: Bilateral hydroureteronephrosis without an obstructing calculus identified. Abnormal mural thickening within the posterior wall of the bladder for which a malignancy is suspected and for which direct visualization is recommended. Chest X-Ray 12/03/24 16:23 IMPRESSION: Findings which represent a significant interval change from less than 24 hours earlier, now demonstrating coarse interstitial lung markings and small bilateral pleural effusions. Cross-sectional imaging (noncontrast enhanced CT examination of the chest) may be performed for further evaluation. Labs Labs: Laboratory Results - last 24 hr 12/03/24 12/03/24 12/04/24 06:55 16:40 04:23 WBC 10.5 H RBC 3.49 L Hgb 12.0 L Hct 36.0 L MCV 103.2 H MCH 34.4 H MCHC 33.3 RDW 13.8 Plt Count 167 MPV 11.8 H PT 16.5 H INR 1.3 APTT 32.0 Sodium 138 139 Potassium 5.1 H 5.4 H Chloride 110 H 112 H Carbon Dioxide 15 L 16 L Anion Gap 13 H 11 BUN 77 H D 60 H D Creatinine 10.10 H 6.70 H Estim Creat Clear Calc 7 11 Estimated GFR 5 L 8 L Glucose 127 H 129 H Calcium 8.2 L 8.3 L Total Bilirubin 0.4 AST 16 L ALT 15 Alkaline Phosphatase 75 Total Protein 7.0 Albumin 3.2 L Prostate Specific Ag 5.1 H Hep Bs Antigen Negative Hep Bs Antibody Negative
[2024-12-04] MEDS: FLUTICASONE/SALMETEROL 115-21 MCG INHALER 1 PUFF 2 PUFF INHALATION ×2 (07:45→20:06)
--- NOTE | 2024-12-04 08:08 | P.PNCA_ITS ---
Progress Note: A&P Assessment and Plan (1) Atrial fibrillation with RVR: Code(s): I48.91 - Unspecified atrial fibrillation Status: Acute Assessment and Plan: Asymptomatic. [id number] 0. On aspirin. Rate control. Stop Diltiazem drip. Change Diltiazem CD 120 mg daily and change Metoprolol Tarate 50 mg every 12 hours for rate control with parameters. (2) Dyslipidemia: Code(s): E78.5 - Hyperlipidemia, unspecified Status: Acute Assessment and Plan: On Atorvastatin. (3) Systolic dysfunction: Code(s): I51.9 - Heart disease, unspecified Status: Acute Assessment and Plan: Resolved. 12/03/24 Echo: EF 55-60%, severe biatrial enlargement, mild MR, RVSP 42 mmHg. (4) Acute renal failure: Qualifiers: Acute renal failure type: unspecified Qualified Code(s): N17.9 - Acute kidney failure, unspecified Code(s): N17.9 - Acute kidney failure, unspecified Status: Acute Assessment and Plan: Improving. 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 (5) Acute UTI: Code(s): N39.0 - Urinary tract infection, site not specified Status: Acute Assessment and Plan: On antibiotics. (6) Bladder wall thickening: Code(s): N32.89 - Other specified disorders of bladder Status: Acute Assessment and Plan: Seeing oncology, urology. Subjective Date/time seen: 12/04/24 08:08 Interval history: Has some sob. No chest pains. Exam Const: General: cooperative, healthy appearing and comfortable Orientation/consciousness: oriented to person, oriented to place and oriented to time Resp: Auscultation: clear to auscultation bilaterally, no crackles, no rales, no rhonchi and no wheezes Cardio: Rate: regular rate Rhythm: abnormal rhythm Heart sounds: no murmurs Peripheral pulses: dorsalis pedis present Neuro: General: oriented to person, oriented to place and oriented to time Extrem: Right lower extremity: no edema Left lower extremity: no edema Objective Data Vital Signs Vital Signs: Vital Signs - 24 hr 12/03/24 08:41 12/03/24 10:00 12/03/24 10:00 Temperature 97.8 F Pulse Rate 102 H 110 H 121 H Respiratory Rate 20 Blood Pressure 122/80 Pulse Oximetry 92 Oxygen Delivery Oxygen Flow Rate Fraction of Inspired Oxygen 12/03/24 10:30 12/03/24 11:40 12/03/24 11:55 Temperature 98.1 F 97.1 F L Pulse Rate 91 94 103 H Respiratory Rate 14 20 18 Blood Pressure 134/99 H 131/87 118/86 Pulse Oximetry 100 97 94 Oxygen Delivery Room Air Simple Face Mask Simple Face Mask Oxygen Flow Rate 8 8 Fraction of Inspired Oxygen 12/03/24 12:10 12/03/24 12:25 12/03/24 12:40 Temperature Pulse Rate 101 H 110 H 94 Respiratory Rate 14 16 12 Blood Pressure 125/87 122/74 119/72 Pulse Oximetry 91 90 94 Oxygen Delivery Nasal Cannula Nasal Cannula Nasal Cannula Oxygen Flow Rate 3 4 4 Fraction of Inspired Oxygen 12/03/24 12:55 12/03/24 13:10 12/03/24 13:25 Temperature Pulse Rate 104 H 98 107 H Respiratory Rate 14 12 16 Blood Pressure 137/91 H 129/70 131/90 Pulse Oximetry 91 91 92 Oxygen Delivery Nasal Cannula Nasal Cannula Nasal Cannula Oxygen Flow Rate 4 4 3 Fraction of Inspired Oxygen 12/03/24 14:00 12/03/24 14:00 12/03/24 15:23 Temperature 97.4 F L Pulse Rate 94 96 Respiratory Rate 20 Blood Pressure 132/75 Pulse Oximetry 94 90 Oxygen Delivery High Flow Nasal Cannula Oxygen Flow Rate 6 Fraction of Inspired Oxygen 12/03/24 15:55 12/03/24 16:00 12/03/24 16:00 Temperature 97.7 F Pulse Rate 126 H 91 Respiratory Rate 20 Blood Pressure 134/84 Pulse Oximetry 92 92 Oxygen Delivery High Flow Nasal Cannula Oxygen Flow Rate 6 Fraction of Inspired Oxygen 12/03/24 17:04 12/03/24 18:00 12/03/24 20:00 Temperature 97.7 F Pulse Rate 112 H 112 H 90 Respiratory Rate 20 Blood Pressure 142/94 H Pulse Oximetry 96 Oxygen Delivery Oxygen Flow Rate Fraction of Inspired Oxygen 12/03/24 20:00 12/03/24 20:00 12/03/24 20:34 Temperature Pulse Rate 81 71 Respiratory Rate 20 Blood Pressure Pulse Oximetry 91 Oxygen Delivery High Flow Nasal Cannula Oxygen Flow Rate 6 Fraction of Inspired Oxygen 12/03/24 20:35 12/03/24 22:00 12/04/24 00:00 Temperature 97.7 F Pulse Rate 71 87 83 Respiratory Rate 20 20 Blood Pressure 114/62 Pulse Oximetry 95 90 Oxygen Delivery High Flow Nasal Cannula Oxygen Flow Rate 44 Fraction of Inspired Oxygen 6 12/04/24 00:00 12/04/24 00:00 12/04/24 00:57 Temperature Pulse Rate 84 82 Respiratory Rate Blood Pressure Pulse Oximetry 94 91 Oxygen Delivery High Flow Nasal Cannula Autopap Oxygen Flow Rate 6 Fraction of Inspired Oxygen 12/04/24 01:21 12/04/24 02:00 12/04/24 02:37 Temperature Pulse Rate 86 83 87 Respiratory Rate Blood Pressure Pulse Oximetry 92 Oxygen Delivery Autopap Oxygen Flow Rate Fraction of Inspired Oxygen 12/04/24 03:45 12/04/24 04:00 12/04/24 04:00 Temperature 97.7 F Pulse Rate 61 64 Respiratory Rate 32 H Blood Pressure 125/73 Pulse Oximetry 94 96 Oxygen Delivery High Flow Nasal Cannula Oxygen Flow Rate 6 Fraction of Inspired Oxygen 12/04/24 05:44 12/04/24 06:00 12/04/24 06:23 Temperature Pulse Rate 65 66 73 Respiratory Rate Blood Pressure Pulse Oximetry 94 Oxygen Delivery Autopap Oxygen Flow Rate Fraction of Inspired Oxygen Intake/Output Intake/Output: Intake & Output 12/01/24 12/02/24 12/03/24 12/04/24 23:59 23:59 23:59 23:59 Intake Total 1999 3513.4 792.5 Output Total 3200 2500 Balance 1999 313.4 -1707.5 Meds/Results Medications: Active Medications Generic Name Dose Route Start Last Admin Trade Name Freq PRN Reason Stop Dose Admin Acetaminophen 650 mg 12/03/24 14:07 12/03/24 14:21 Acetaminophen 325 Mg Tablet PO 650 mg Q4H PRN Administration Headache Albuterol 2 puff 12/02/24 23:29 Albuterol Sulfate (*Sp) Aerosol 1 Puff INHALATION Q6HRT PRN shortness of breath or wheezing Atorvastatin Calcium 40 mg 12/03/24 09:00 12/03/24 08:41 Atorvastatin 40 Mg Tablet PO 40 mg DAILY BANG Administration Diltiazem HCl 60 mg 12/03/24 08:45 12/04/24 06:23 Diltiazem Hcl 60 Mg Tablet PO 60 mg Q6HR BANG Administration Fentanyl Citrate 25 mcg 12/03/24 10:17 12/03/24 12:35 Fentanyl Citrate Inj (*Crx) 100 Mcg/2 Ml Vial IV PUSH 25 mcg Q2M PRN Administration Pain Fluticasone Propionate 1 spray 12/03/24 09:00 12/03/24 08:40 Fluticasone Propionate 0.05% Na Spr 16 Gm Btl (*Bkc) NASAL 1 spray DAILY BANG Administration Sodium Chloride 1,000 mls @ 75 mls/hr 12/02/24 20:30 12/04/24 05:02 Normal Saline Iv IV CONT 75 mls/hr .[id number] BANG Administration Ceftriaxone Sodium 1 gm in 50 mls @ 100 mls/hr 12/03/24 22:00 12/03/24 21:44 Rocephin 1 Gm/Ns 50 Ml IVPB 100 mls/hr Q24H BANG Administration Lactated Ringer's 1,000 mls @ 30 mls/hr 12/03/24 10:20 12/03/24 11:40 Lr - Lactated Ringers Iv IV CONT Infused .Q24H BANG Infusion Lactated Ringer's 1,000 mls @ 30 mls/hr 12/03/24 10:20 12/03/24 13:30 Lr - Lactated Ringers Iv IV CONT Infused .Q24H BANG Infusion Metoprolol Tartrate 25 mg 12/03/24 12:00 12/04/24 06:23 Metoprolol Tartrate 25 Mg Tablet PO 25 mg Q6HR BANG Administration Ondansetron HCl 4 mg 12/03/24 06:23 12/03/24 06:33 Ondansetron Hcl Odt 4 Mg Tablet PO 4 mg Q6H PRN Administration Nausea And Vomiting Ondansetron HCl 4 mg 12/03/24 10:17 Ondansetron Inj 4 Mg/2 Ml Vial IV PUSH ONCE PRN Nausea Perflutren Lipid Microsphere 0 ml 12/03/24 08:47 Perflutren Lipid Microspheres 1.5 Ml Vial Diluted To 10 Ml Total Volume IV PUSH 12/06/24 08:47 ONCE PRN adequate visualization Protocol Fluticasone/Salmeterol 2 puff 12/03/24 08:00 12/04/24 07:45 Fluticasone/Salmeterol 115-21 Mcg Inhaler 1 Puff INHALATION 2 puff Q12HRT BANG Administration Tamsulosin HCl 0.4 mg 12/03/24 09:00 12/03/24 08:41 Tamsulosin Hcl 0.4 Mg Capsule PO 0.4 mg DAILY BANG Administration Radiology Results: ITS Impressions Abdomen/Pelvis CT 12/02/24 18:41 IMPRESSION: Bilateral hydroureteronephrosis without an obstructing calculus identified. Abnormal mural thickening within the posterior wall of the bladder for which a malignancy is suspected and for which direct visualization is recommended. Chest X-Ray 12/03/24 16:23 IMPRESSION: Findings which represent a significant interval change from less than 24 hours earlier, now demonstrating coarse interstitial lung markings and small bilateral pleural effusions. Cross-sectional imaging (noncontrast enhanced CT examination of the chest) may be performed for further evaluation. Labs Labs: Laboratory Results - last 24 hr 12/03/24 12/04/24 16:40 04:23 WBC 10.5 H RBC 3.49 L Hgb 12.0 L Hct 36.0 L MCV 103.2 H MCH 34.4 H MCHC 33.3 RDW 13.8 Plt Count 167 MPV 11.8 H Sodium 138 139 Potassium 5.1 H 5.4 H Chloride 110 H 112 H Carbon Dioxide 15 L 16 L Anion Gap 13 H 11 BUN 77 H D 60 H D Creatinine 10.10 H 6.70 H Estim Creat Clear Calc 7 11 Estimated GFR 5 L 8 L Glucose 127 H 129 H Calcium 8.2 L 8.3 L Total Bilirubin 0.4 AST 16 L ALT 15 Alkaline Phosphatase 75 Total Protein 7.0 Albumin 3.2 L Prostate Specific Ag 5.1 H Hep Bs Antigen Negative Hep Bs Antibody Negative
[2024-12-04] MEDS: dilTIAZem HCL CD 120 MG CAP.24HR PO (08:36)
[2024-12-04] MEDS: TAMSULOSIN HCL 0.4 MG CAPSULE PO (08:37)
[2024-12-04] MEDS: ATORVASTATIN 40 MG TABLET PO (08:37)
[2024-12-04] MEDS: METOPROLOL TARTRATE 50 MG TAB PO ×2 (08:37→21:10)
[2024-12-04] MEDS: FLUTICASONE PROPIONATE 0.05% NA SPR 16 GM BTL (*BKC) 1 SPRAY NASAL (08:38)
[2024-12-04] MEDS: SODIUM ZIRCONIUM CYCLOSILICATE 10 GM POWD.PACK PO ×2 (09:57→17:07)
--- NOTE | 2024-12-04 10:05 | P.PNNP_ITS ---
Progress Note: A&P Assessment and Plan (1) Acute kidney injury: Code(s): N17.9 - Acute kidney failure, unspecified Status: Acute Assessment and Plan: * presumed to be secondary to obstructive uropathy * significant improvement with right ureteral stent placement * follow trend of repeat labs and UOP (2) Hydroureteronephrosis: Code(s): N13.30 - Unspecified hydronephrosis Status: Acute Assessment and Plan: * bilateral and as noted on admission CT of abdomen/pelvis * Urology following: * s/p cystoscopy, right retrograde pyelography and right ureteral stent placement and TURBT * attempted left ureteral stent placement (but unable to locate left ureteral orifice) * will likely need placement of a left percutaneous nephrostomy tube with eventual internalization of ureteral stent (3) Hyperkalemia: Code(s): E87.5 - Hyperkalemia Status: Acute Assessment and Plan: * due to #1 and #2 * s/p medical management * follow trend of K+ (4) Metabolic acidosis: Code(s): E87.20 - Acidosis, unspecified Status: Acute Assessment and Plan: * due to HOANG/ARF * should improve as renal function does * will give a few dose of oral sodium bicarbonate to help compensate * follow CO2 levels (5) Hypoxia: Code(s): R09.02 - Hypoxemia Status: Acute Assessment and Plan: * as noted since afternoon of 12/03 * now requiring supplemental oxygen * CXR with evidence of pleural effusions and congestion * however, previous imaging (CT of chest in 2023) notes evidence of emphysema as wel... * hold further IVFs * one time dose of IV bumex today (this will also help with #3) * hopefully post-obstructive diureses will help as well * Echo (on 12/03) noted: * left ventricular systolic function is normal, estimated at 55-60% * left ventricular diastolic function is normal * mitral valve has mildly calcified annulus * mild mitral valve regurgitation * mild pulmonary hypertension, estimated pulmonary arterial systolic pressure is 42 mmHg * follow respiratory status (6) Atrial fibrillation with RVR: Code(s): I48.91 - Unspecified atrial fibrillation Status: Acute Assessment and Plan: * rate control strategy * on diltiazem and metoprolol * Cardiology following (7) Acute UTI: Code(s): N39.0 - Urinary tract infection, site not specified Status: Acute Assessment and Plan: * admission UA suggestive * however, urine culture was not done * on antibiotics (8) Mass of bladder: Code(s): N32.89 - Other specified disorders of bladder Status: Acute Assessment and Plan: * suspect malignancy (urothelial carcinoma +/- prostate cancer) * s/p TURBT * pathology pending * Urology and Oncology following Will continue to follow. L Subjective Date/time seen: 12/04/24 10:05 Interval history: Follow-up for acute kidney injury/acute renal failure. Significant improvement in renal function/creatinine in the last 24 hours following urological intervention in the OR yesterday morning with reasonable urine output; potassium still slightly elevated; hypoxia since yesterday afternoon and need for supplemental oxygen with noted results of CXR -- IVFs subsequently discontinued at this time; despite hypoxia, no evidence of respiratory distress but does report shortness of breath. Exam 2 Narrative: General: elderly but WD/WN male in NAD Heart: normal S1 and S2; no rub Lungs: coarse breath sounds Abdomen: soft, nontender, nondistended, positive bowel sounds Extremities: no cyanosis or clubbing; no edema Skin: warm and dry Objective Data Vital Signs Vital Signs: Vital Signs Temp Pulse Resp BP Pulse Ox O2 Del Method O2 Flow Rate 12/04/24 08:37 60 12/04/24 08:10 97.5 F L 67 24 H 117/73 91 12/04/24 08:00 73 12/04/24 08:00 91 High Flow Nasal Cannula 6 12/04/24 07:45 74 18 12/04/24 07:45 93 High Flow Nasal Cannula 6 12/04/24 06:23 73 12/04/24 06:00 66 12/04/24 05:44 65 94 Autopap 12/04/24 04:00 64 12/04/24 04:00 97.7 F 61 32 H 125/73 96 12/04/24 03:45 94 High Flow Nasal Cannula 6 12/04/24 02:37 87 92 Autopap 12/04/24 02:00 83 12/04/24 01:21 86 12/04/24 00:57 82 91 Autopap 12/04/24 00:00 94 High Flow Nasal Cannula 6 12/04/24 00:00 84 12/04/24 00:00 97.7 F 83 20 114/62 90 12/03/24 22:00 87 12/03/24 20:35 71 20 95 High Flow Nasal Cannula 44 12/03/24 20:34 71 20 12/03/24 20:00 81 12/03/24 20:00 91 High Flow Nasal Cannula 6 12/03/24 20:00 97.7 F 90 20 142/94 H 96 12/03/24 18:00 112 H 12/03/24 17:04 112 H 12/03/24 16:00 91 12/03/24 16:00 92 High Flow Nasal Cannula 6 12/03/24 15:55 97.7 F 126 H 20 134/84 92 12/03/24 15:23 90 High Flow Nasal Cannula 6 12/03/24 14:00 96 12/03/24 14:00 97.4 F L 94 20 132/75 94 12/03/24 13:25 107 H 16 131/90 92 Nasal Cannula 3 12/03/24 13:10 98 12 129/70 91 Nasal Cannula 4 12/03/24 12:55 104 H 14 137/91 H 91 Nasal Cannula 4 12/03/24 12:40 94 12 119/72 94 Nasal Cannula 4 12/03/24 12:25 110 H 16 122/74 90 Nasal Cannula 4 Intake/Output Intake/Output: Intake & Output 12/01/24 12/02/24 12/03/24 12/04/24 23:59 23:59 23:59 23:59 Intake Total 1999 3513.4 792.5 Output Total 3200 2500 Balance 1999 313.4 -1707.5 Meds/Results Medications: Active Medications Generic Name Dose Route Start Last Admin Trade Name Freq PRN Reason Stop Dose Admin Acetaminophen 650 mg 12/03/24 14:07 12/03/24 14:21 Acetaminophen 325 Mg Tablet PO 650 mg Q4H PRN Administration Headache Albuterol 2 puff 12/02/24 23:29 Albuterol Sulfate (*Sp) Aerosol 1 Puff INHALATION Q6HRT PRN shortness of breath or wheezing Albuterol 2.5 mg 12/04/24 12:00 12/04/24 11:04 Albuterol Sulfate Neb 2.5 Mg/3 Ml Inh INHALATION 2.5 mg Q4HRT BANG Administration Atorvastatin Calcium 40 mg 12/03/24 09:00 12/04/24 08:37 Atorvastatin 40 Mg Tablet PO 40 mg DAILY BANG Administration Diltiazem HCl 120 mg 12/04/24 09:00 12/04/24 08:36 Diltiazem Hcl Cd 120 Mg Cap.24hr PO 120 mg QAM BANG Administration Fentanyl Citrate 25 mcg 12/03/24 10:17 12/03/24 12:35 Fentanyl Citrate Inj (*Crx) 100 Mcg/2 Ml Vial IV PUSH 25 mcg Q2M PRN Administration Pain Fluticasone Propionate 1 spray 12/03/24 09:00 12/04/24 08:38 Fluticasone Propionate 0.05% Na Spr 16 Gm Btl (*Bkc) NASAL 1 spray DAILY BANG Administration Sodium Chloride 1,000 mls @ 75 mls/hr 12/02/24 20:30 12/04/24 05:02 Normal Saline Iv IV CONT 75 mls/hr .[id number] BANG Administration Ceftriaxone Sodium 1 gm in 50 mls @ 100 mls/hr 12/03/24 22:00 12/03/24 21:44 Rocephin 1 Gm/Ns 50 Ml IVPB 100 mls/hr Q24H BANG Administration Lactated Ringer's 1,000 mls @ 30 mls/hr 12/03/24 10:20 12/03/24 11:40 Lr - Lactated Ringers Iv IV CONT Infused .Q24H BANG Infusion Lactated Ringer's 1,000 mls @ 30 mls/hr 12/03/24 10:20 12/03/24 13:30 Lr - Lactated Ringers Iv IV CONT Infused .Q24H BANG Infusion Metoprolol Tartrate 50 mg 12/04/24 09:00 12/04/24 08:37 Metoprolol Tartrate 50 Mg Tab PO 50 mg Q12HR BANG Administration Ondansetron HCl 4 mg 12/03/24 06:23 12/03/24 06:33 Ondansetron Hcl Odt 4 Mg Tablet PO 4 mg Q6H PRN Administration Nausea And Vomiting Ondansetron HCl 4 mg 12/03/24 10:17 Ondansetron Inj 4 Mg/2 Ml Vial IV PUSH ONCE PRN Nausea Perflutren Lipid Microsphere 0 ml 12/03/24 08:47 Perflutren Lipid Microspheres 1.5 Ml Vial Diluted To 10 Ml Total Volume IV PUSH 12/06/24 08:47 ONCE PRN adequate visualization Protocol Fluticasone/Salmeterol 2 puff 12/03/24 08:00 12/04/24 07:45 Fluticasone/Salmeterol 115-21 Mcg Inhaler 1 Puff INHALATION 2 puff Q12HRT BANG Administration Sodium Bicarbonate 650 mg 12/04/24 11:55 Sodium Bicarbonate Tab 650 Mg Tablet PO 12/06/24 17:01 BID BANG Sodium Zirconium Cyclosilicate 10 gm 12/04/24 10:00 12/04/24 09:57 Sodium Zirconium Cyclosilicate 10 Gm Powd.Pack PO 10 gm BID@1000,1800 BANG Administration Tamsulosin HCl 0.4 mg 12/03/24 09:00 12/04/24 08:37 Tamsulosin Hcl 0.4 Mg Capsule PO 0.4 mg DAILY BANG Administration Radiology Results: ITS Impressions Abdomen/Pelvis CT 12/02/24 18:41 IMPRESSION: Bilateral hydroureteronephrosis without an obstructing calculus identified. Abnormal mural thickening within the posterior wall of the bladder for which a malignancy is suspected and for which direct visualization is recommended. Chest X-Ray 12/03/24 16:23 IMPRESSION: Findings which represent a significant interval change from less than 24 hours earlier, now demonstrating coarse interstitial lung markings and small bilateral pleural effusions. Cross-sectional imaging (noncontrast enhanced CT examination of the chest) may be performed for further evaluation. Labs Labs: Laboratory Tests 12/04/24 04:23 12/04/24 04:23 Calcium 8.3 L Total Bilirubin 0.4 AST 16 L ALT 15 Alkaline Phosphatase 75 Total Protein 7.0 Albumin 3.2 L Microbiology 12/02/24 21:26 Blood Blood Culture - Preliminary 12/02/24 21:42 Blood Blood Culture - Preliminary
--- NOTE | 2024-12-04 10:52 | PM.IMPN ---
Progress Note: A&P Assessment and Plan (1) Atrial fibrillation with RVR: Code(s): I48.91 - Unspecified atrial fibrillation Status: Acute Assessment and Plan: Continue Metoprolol Tartrate 25 mg PO q 6hr Diltiazem 60mg PO q hr (2) Hydroureteronephrosis: Code(s): N13.30 - Unspecified hydronephrosis Status: Acute Assessment and Plan: Urology was consulted and he underwent Cystoscopy, right retrograde pyelography and right ureteral stent placement. Attempted left ureteral stent placement. TURBT (large, 5-6cm) (3) Acute hyperkalemia: Code(s): E87.5 - Hyperkalemia Status: Acute Assessment and Plan: Given Lokelma and Albuterol (4) Acute renal failure: Qualifiers: Acute renal failure type: unspecified Qualified Code(s): N17.9 - Acute kidney failure, unspecified Code(s): N17.9 - Acute kidney failure, unspecified Status: Acute Assessment and Plan: Nephrology following Will trend Cr Possible post renal Urology was consulted and he underwent Cystoscopy, right retrograde pyelography and right ureteral stent placement. Attempted left ureteral stent placement. TURBT (large, 5-6cm) (5) Bladder wall thickening: Code(s): N32.89 - Other specified disorders of bladder Status: Acute Assessment and Plan: ass above (6) Acute UTI: Code(s): N39.0 - Urinary tract infection, site not specified Status: Acute Assessment and Plan: Continue Ceftriaxone (7) Bladder cancer: Code(s): C67.9 - Malignant neoplasm of bladder, unspecified Status: Acute Assessment and Plan: Possible poorly differentiated muscle invasive urothelial carcinoma. If confirmed as per urology neoadjuvant chemotherapy followed by cystectomy with urinary diversion Biopsy results pending Prostate cancer not rule out Oncology on board Subjective Date/time seen: 12/04/24 10:52 Interval history: Patient creatinine is significantly improving. Diltiazem drip has been stopped and and patient is currently on diltiazem 120 mg p.o. q.d. and metoprolol 50 mg p.o. b.i.d.. In regards to HOANG due to bilateral ureteral obstruction patient underwent right ureteral stent placement and possibly placement of left percutaneous nephrostomy tube with eventual internalization of ureteral stent next week. Pending biopsy results. Possible bladder cancer. Oncology on board. 12/04: Discussed with Nephrology. 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 Review of Systems Review of Systems: All systems reviewed & are unremarkable except as noted in HPI and below (HPI) Exam Narrative: GENERAL APPEARANCE: well developed well nourished male in no acute distress HEENT: normocephalic, atraumatic, normal conjunctiva and sclera, nares patient NECK: no lymphadenopathy, thyromegaly, or JVD MOUTH: normal lips, teeth, and gums CARDIOVASCULAR: RRR, normal S1 and S2, no rub RESPIRATORY: clear to auscultation bilaterally ABDOMEN: soft, nontender, nondistended, positive bowel sounds present EXTREMITIES: no evidence of cyanosis, clubbing, trace edema NEUROLOGICAL: alert and oriented x 3; CN II - XII intact bilaterally; no focal deficits noted Const: General: comfortable and no acute distress Orientation/consciousness: oriented to person, oriented to place and oriented to time Other: A&O x3 HENMT: Mouth: Yes dry mucous membranes Eyes: Pupils: Equal, round and reactive pupils present Neck: Neck: supple Resp: Effort & Inspection: normal respiratory effort Auscultation: clear to auscultation bilaterally Cardio: Rate: regular rate Rhythm: regular rhythm Heart sounds: no murmurs Peripheral pulses: dorsalis pedis present GI: Inspection: non-distended Auscultation: normal bowel sounds : General: Yes bladder normal to palpation Urinary Catheter: Urinary Catheter: patent and draining and urine cloudy Neuro: General: oriented to person, oriented to place and oriented to time Cranial nerves: Yes Equal, round and reactive pupils present Motor exam (neuro): 5/5 motor strength present throughout Sensory Exam: normal sensation Extrem: General: edema (Trivial pitting edema at the bilateral lower extremities below the knees) Right lower extremity: no edema Left lower extremity: no edema Psych: Mental Status: mental status grossly normal Objective Data Vital Signs Vital Signs: Vital Signs - 24 hr 12/03/24 11:40 12/03/24 11:55 12/03/24 12:10 Temperature 97.1 F L Pulse Rate 94 103 H 101 H Respiratory Rate 20 18 14 Blood Pressure 131/87 118/86 125/87 Pulse Oximetry 97 94 91 Oxygen Delivery Simple Face Mask Simple Face Mask Nasal Cannula Oxygen Flow Rate 8 8 3 Fraction of Inspired Oxygen 04/24/25 12:25 12/03/24 12:40 12/03/24 12:55 Temperature Pulse Rate 110 H 94 104 H Respiratory Rate 16 12 14 Blood Pressure 122/74 119/72 137/91 H Pulse Oximetry 90 94 91 Oxygen Delivery Nasal Cannula Nasal Cannula Nasal Cannula Oxygen Flow Rate 4 4 4 Fraction of Inspired Oxygen 12/03/24 13:10 12/03/24 13:25 12/03/24 14:00 Temperature 97.4 F L Pulse Rate 98 107 H 94 Respiratory Rate 12 16 20 Blood Pressure 129/70 131/90 132/75 Pulse Oximetry 91 92 94 Oxygen Delivery Nasal Cannula Nasal Cannula Oxygen Flow Rate 4 3 Fraction of Inspired Oxygen 12/03/24 14:00 12/03/24 15:23 12/03/24 15:55 Temperature 97.7 F Pulse Rate 96 126 H Respiratory Rate 20 Blood Pressure 134/84 Pulse Oximetry 90 92 Oxygen Delivery High Flow Nasal Cannula Oxygen Flow Rate 6 Fraction of Inspired Oxygen 12/03/24 16:00 12/03/24 16:00 12/03/24 17:04 Temperature Pulse Rate 91 112 H Respiratory Rate Blood Pressure Pulse Oximetry 92 Oxygen Delivery High Flow Nasal Cannula Oxygen Flow Rate 6 Fraction of Inspired Oxygen 12/03/24 18:00 12/03/24 20:00 12/03/24 20:00 Temperature 97.7 F Pulse Rate 112 H 90 Respiratory Rate 20 Blood Pressure 142/94 H Pulse Oximetry 96 91 Oxygen Delivery High Flow Nasal Cannula Oxygen Flow Rate 6 Fraction of Inspired Oxygen 12/03/24 20:00 12/03/24 20:34 12/03/24 20:35 Temperature Pulse Rate 81 71 71 Respiratory Rate 20 20 Blood Pressure Pulse Oximetry 95 Oxygen Delivery High Flow Nasal Cannula Oxygen Flow Rate 44 Fraction of Inspired Oxygen 6 12/03/24 22:00 12/04/24 00:00 12/04/24 00:00 Temperature 97.7 F Pulse Rate 87 83 84 Respiratory Rate 20 Blood Pressure 114/62 Pulse Oximetry 90 Oxygen Delivery Oxygen Flow Rate Fraction of Inspired Oxygen 12/04/24 00:00 12/04/24 00:57 12/04/24 01:21 Temperature Pulse Rate 82 86 Respiratory Rate Blood Pressure Pulse Oximetry 94 91 Oxygen Delivery High Flow Nasal Cannula Autopap Oxygen Flow Rate 6 Fraction of Inspired Oxygen 12/04/24 02:00 12/04/24 02:37 12/04/24 03:45 Temperature Pulse Rate 83 87 Respiratory Rate Blood Pressure Pulse Oximetry 92 94 Oxygen Delivery Autopap High Flow Nasal Cannula Oxygen Flow Rate 6 Fraction of Inspired Oxygen 12/04/24 04:00 12/04/24 04:00 12/04/24 05:44 Temperature 97.7 F Pulse Rate 61 64 65 Respiratory Rate 32 H Blood Pressure 125/73 Pulse Oximetry 96 94 Oxygen Delivery Autopap Oxygen Flow Rate Fraction of Inspired Oxygen 12/04/24 06:00 12/04/24 06:23 12/04/24 07:45 Temperature Pulse Rate 66 73 Respiratory Rate Blood Pressure Pulse Oximetry 93 Oxygen Delivery High Flow Nasal Cannula Oxygen Flow Rate 6 Fraction of Inspired Oxygen 12/04/24 07:45 12/04/24 08:00 12/04/24 08:10 Temperature 97.5 F L Pulse Rate 74 67 Respiratory Rate 18 24 H Blood Pressure 117/73 Pulse Oximetry 91 91 Oxygen Delivery High Flow Nasal Cannula Oxygen Flow Rate 6 Fraction of Inspired Oxygen 12/04/24 08:37 Temperature Pulse Rate 60 Respiratory Rate Blood Pressure Pulse Oximetry Oxygen Delivery Oxygen Flow Rate Fraction of Inspired Oxygen Intake/Output Intake/Output: Intake & Output 12/01/24 12/02/24 12/03/24 12/04/24 23:59 23:59 23:59 23:59 Intake Total 1999 3513.4 792.5 Output Total 3200 2500 Balance 1999 313.4 -1707.5 Meds/Results Medications: Active Medications Generic Name Dose Route Start Last Admin Trade Name Freq PRN Reason Stop Dose Admin Acetaminophen 650 mg 12/03/24 14:07 12/03/24 14:21 Acetaminophen 325 Mg Tablet PO 650 mg Q4H PRN Administration Headache Albuterol 2 puff 12/02/24 23:29 Albuterol Sulfate (*Sp) Aerosol 1 Puff INHALATION Q6HRT PRN shortness of breath or wheezing Albuterol 2.5 mg 12/04/24 12:00 Albuterol Sulfate Neb 2.5 Mg/3 Ml Inh INHALATION Q4HRT BANG Atorvastatin Calcium 40 mg 12/03/24 09:00 12/04/24 08:37 Atorvastatin 40 Mg Tablet PO 40 mg DAILY BANG Administration Diltiazem HCl 120 mg 12/04/24 09:00 12/04/24 08:36 Diltiazem Hcl Cd 120 Mg Cap.24hr PO 120 mg QAM BANG Administration Fentanyl Citrate 25 mcg 12/03/24 10:17 12/03/24 12:35 Fentanyl Citrate Inj (*Crx) 100 Mcg/2 Ml Vial IV PUSH 25 mcg Q2M PRN Administration Pain Fluticasone Propionate 1 spray 12/03/24 09:00 12/04/24 08:38 Fluticasone Propionate 0.05% Na Spr 16 Gm Btl (*Bkc) NASAL 1 spray DAILY BANG Administration Sodium Chloride 1,000 mls @ 75 mls/hr 12/02/24 20:30 12/04/24 05:02 Normal Saline Iv IV CONT 75 mls/hr .[id number] BANG Administration Ceftriaxone Sodium 1 gm in 50 mls @ 100 mls/hr 12/03/24 22:00 12/03/24 21:44 Rocephin 1 Gm/Ns 50 Ml IVPB 100 mls/hr Q24H BANG Administration Lactated Ringer's 1,000 mls @ 30 mls/hr 12/03/24 10:20 12/03/24 11:40 Lr - Lactated Ringers Iv IV CONT Infused .Q24H BANG Infusion Lactated Ringer's 1,000 mls @ 30 mls/hr 12/03/24 10:20 12/03/24 13:30 Lr - Lactated Ringers Iv IV CONT Infused .Q24H BANG Infusion Metoprolol Tartrate 50 mg 12/04/24 09:00 12/04/24 08:37 Metoprolol Tartrate 50 Mg Tab PO 50 mg Q12HR BANG Administration Ondansetron HCl 4 mg 12/03/24 06:23 12/03/24 06:33 Ondansetron Hcl Odt 4 Mg Tablet PO 4 mg Q6H PRN Administration Nausea And Vomiting Ondansetron HCl 4 mg 12/03/24 10:17 Ondansetron Inj 4 Mg/2 Ml Vial IV PUSH ONCE PRN Nausea Perflutren Lipid Microsphere 0 ml 12/03/24 08:47 Perflutren Lipid Microspheres 1.5 Ml Vial Diluted To 10 Ml Total Volume IV PUSH 12/06/24 08:47 ONCE PRN adequate visualization Protocol Fluticasone/Salmeterol 2 puff 12/03/24 08:00 12/04/24 07:45 Fluticasone/Salmeterol 115-21 Mcg Inhaler 1 Puff INHALATION 2 puff Q12HRT BANG Administration Sodium Zirconium Cyclosilicate 10 gm 12/04/24 10:00 12/04/24 09:57 Sodium Zirconium Cyclosilicate 10 Gm Powd.Pack PO 10 gm BID@1000,1800 BANG Administration Tamsulosin HCl 0.4 mg 12/03/24 09:00 12/04/24 08:37 Tamsulosin Hcl 0.4 Mg Capsule PO 0.4 mg DAILY BANG Administration Radiology Results: ITS Impressions Abdomen/Pelvis CT 12/02/24 18:41 IMPRESSION: Bilateral hydroureteronephrosis without an obstructing calculus identified. Abnormal mural thickening within the posterior wall of the bladder for which a malignancy is suspected and for which direct visualization is recommended. Chest X-Ray 12/03/24 16:23 IMPRESSION: Findings which represent a significant interval change from less than 24 hours earlier, now demonstrating coarse interstitial lung markings and small bilateral pleural effusions. Cross-sectional imaging (noncontrast enhanced CT examination of the chest) may be performed for further evaluation. Labs Labs: Laboratory Results - last 24 hr 12/03/24 12/04/24 16:40 04:23 WBC 10.5 H RBC 3.49 L Hgb 12.0 L Hct 36.0 L MCV 103.2 H MCH 34.4 H MCHC 33.3 RDW 13.8 Plt Count 167 MPV 11.8 H Sodium 138 139 Potassium 5.1 H 5.4 H Chloride 110 H 112 H Carbon Dioxide 15 L 16 L Anion Gap 13 H 11 BUN 77 H D 60 H D Creatinine 10.10 H 6.70 H Estim Creat Clear Calc 7 11 Estimated GFR 5 L 8 L Glucose 127 H 129 H Calcium 8.2 L 8.3 L Total Bilirubin 0.4 AST 16 L ALT 15 Alkaline Phosphatase 75 Total Protein 7.0 Albumin 3.2 L Prostate Specific Ag 5.1 H Hep Bs Antigen Negative Hep Bs Antibody Negative Hospitalist MIPS Advance Care Plan I have confirmed that the patient's Advanced Care Plan is present, code status is documented, or surrogate decision maker is listed in patient medical record.: Yes Medication Reconciliation I have utilized all available resources to obtain, update and review the patients current medications (includes all prescriptions, OTC, herbals, cannabis, and nutritional supplements).: Yes
[2024-12-04] MEDS: ALBUTEROL SULFATE NEB 2.5 MG/3 ML INH INHALATION ×4 (11:04→23:19)
--- NOTE | 2024-12-04 12:05 | PC.NURSE ---
On 12/04/24, the student, [Debbie Medellin], provided care and completed [facility] documentation on this patient. I have reviewed the student's documentation and agree with the findings.
[2024-12-04] MEDS: SODIUM BICARBONATE TAB 650 MG TABLET PO ×2 (12:55→17:07)
[2024-12-04 13:53] LABS: SARS-CoV-2 RNA PCR Negative (Negative)
--- NOTE | 2024-12-04 14:09 | WPDANESPN ---
Anes - Prog Note Post-Op Date/Time: 12/04/24 14:09 Cardiovascular status: normal Respiratory status: normal Airway patency: baseline Mental status: baseline Post-Op hydration status: normal Vital Signs: Last Vital Signs Temp 36.4 C 12/04/24 12:00 Pulse 82 12/04/24 12:00 Resp 16 12/04/24 12:00 BP 114/70 12/04/24 12:00 Pulse Ox 93 12/04/24 12:00 O2 Del Method High Flow Nasal Cannula 12/04/24 12:00 O2 Flow Rate 6 12/04/24 12:00 FiO2 6 12/03/24 20:35 Pain Score (VAS): 1 I/O: Intake & Output 12/03/24 12/04/24 12/04/24 23:59 07:59 15:59 Intake Total 1980.0 792.5 Output Total 1500 2500 Balance 480.0 -1707.5 Laboratory Tests 12/04/24 04:23 12/04/24 04:23 12/03/24 12/04/24 12/04/24 16:40 04:23 13:06 WBC 10.5 H RBC 3.49 L Hgb 12.0 L Hct 36.0 L MCV 103.2 H MCH 34.4 H MCHC 33.3 RDW 13.8 Plt Count 167 MPV 11.8 H Sodium 138 139 Potassium 5.1 H 5.4 H Chloride 110 H 112 H Carbon Dioxide 15 L 16 L Anion Gap 13 H 11 BUN 77 H D 60 H D Creatinine 10.10 H 6.70 H Estim Creat Clear Calc 7 11 Estimated GFR 5 L 8 L Glucose 127 H 129 H Calcium 8.2 L 8.3 L Total Bilirubin 0.4 AST 16 L ALT 15 Alkaline Phosphatase 75 Total Protein 7.0 Albumin 3.2 L Prostate Specific Ag 5.1 H Free PSA Pending % Free PSA Pending Total PSA Pending Total Testosterone Pending Free Testosterone Pending Hep Bs Antigen Negative Hep Bs Antibody Negative Hep B Core Total Ab Pending SARS-CoV-2 RNA (RT-PCR) Negative Microbiology 12/02/24 21:26 Blood Blood Culture - Preliminary 12/02/24 21:42 Blood Blood Culture - Preliminary Post-procedural complaints: none Patient Feedback: Patient satisfied with anesthetic care.
--- NOTE | 2024-12-04 14:55 | PCCARD ---
PATIENT HAD FULL ECHOCARDIOGRAM 12/03/24 - CANCELLED ECHO ORDERED 12/04/24
[2024-12-04] MEDS: BUMETANIDE INJ 1 MG/4 ML VIAL 1.5 MG IV PUSH (15:31)
[2024-12-04 16:59] LABS: Hematocrit 35.6 % (42.0-52.0); Hemoglobin 11.8 g/dL (14.0-18.0); Immature Granulocyte Absolute 0.07 K/mm3 (0.00-0.031); Immature Granulocyte Percent A 0.6 % (0-0.5); Lymphocytes Absolute Auto 0.48 K/mm3 (0.9-3.2); Lymphocytes Percent Auto 4.2 % (18.3-44.2); Mean Corpuscular HGB Conc 33.1 g/dl (32-36); Mean Corpuscular Hemoglobin 33.9 pg (26-34); Mean Corpuscular Volume 102.3 fl (80-100); Mean Platelet Volume 11.8 fl (7.4-10.4); Monocytes Absolute Auto 1.1 K/mm3 (0.1-0.6); Monocytes Percent Auto 9.5 % (2.6-8.5); Neutrophils Absolute Auto 9.9 K/mm3 (1.3-6.7); Neutrophils Percent Auto 85.7 % (45.5-73.1); Platelet Count Result 170 k/mm3 (150-375); Red Blood Count 3.48 M/mm3 (4.6-6.20); Red Cell Distribution Width 14.1 % (11.5-14.5); White Blood Count 11.6 K/mm3 (4.5-10.0)
[2024-12-04 17:40] LABS: Giant Platelets Present; Large Platelets Present; Platelet Estimate Adequate (Adequate); Schistocytes None Seen
--- NOTE | 2024-12-04 18:24 | WPDONCPN ---
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 Further workup in the ER with CBC and CMP showed a creatinine of 12.7 and patient in acute renal failure. A CT scan of abdomen and pelvis without contrast was obtained which showed bilateral hydroureteronephrosis without stone. There was significant perinephric inflammation. There was mural wall thickening of the posterior wall of the bladder concerning for bladder cancer. Patient was seen by urology team and underwent cystoscopy on 12/03/2024. The cystoscopy showed very large dense solid neoplasm arising at the bladder neck and extending into the trigone more on the left than the right. The large section of mass was resected from the left hemanth trigone in attempt to find the left ureteral orifice but urologist was not able to identify left ureteral orifice. Right ureteral orifice was identified and a stent was placed. About 5-6 cm of the mass was resected via TURBT. Pathology is reported and is consistent with high-grade urothelial cancer with muscle invasion. Patient will need a appropriate staging scan but creatinine is too high to administer IV contrast for good CT of the chest abdomen and pelvis. If after proper staging scans there is no evidence of richard disease or metastasis then patient could be a candidate for bladder sparing treatment. This could include maximum TURBT by Urology followed by concurrent chemotherapy and radiation. At this time his creatinine has decreased from 12.7 at admission to 6.7 today after urological intervention with right ureteral stent. However he is no where closer to receive cisplatin chemotherapy due to renal dysfunction. However I am hopeful that he will normalize his creatinine as his last creatinine at baseline was 1.23 few years ago. I explained this to patient, his brother and his [id number] present at bedside. I will continue to follow along while patient is hospitalized here. At discharge he will be needing to see Dr. Friedman as an outpatient for suitable staging studies and treatment planning. He will also need to see radiation oncologist for their input as an outpatient. Subjective Date/time seen: 12/04/24 18:24 Review of Systems Review of Systems Patient reports that he feels much better than before. He is able to drain the urine through the catheter. He denies any fever, chills, night sweats. He denies any chest pain, shortness of breath, cough, hemoptysis. He denies any dizziness, lightheadedness. There has been difficulty passing bowels as well and patient said that he had to strain to pass the bowels. 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 Objective Data Vital Signs Vital Signs: Vital Signs - 24 hr 12/03/24 20:00 12/03/24 20:00 12/03/24 20:00 Temperature 36.5 C Pulse Rate 90 81 Respiratory Rate 20 Blood Pressure 142/94 H Pulse Oximetry 96 91 Oxygen Delivery High Flow Nasal Cannula Oxygen Flow Rate 6 Fraction of Inspired Oxygen 12/03/24 20:34 12/03/24 20:35 12/03/24 22:00 Temperature Pulse Rate 71 71 87 Respiratory Rate 20 20 Blood Pressure Pulse Oximetry 95 Oxygen Delivery High Flow Nasal Cannula Oxygen Flow Rate 44 Fraction of Inspired Oxygen 6 12/04/24 00:00 12/04/24 00:00 12/04/24 00:00 Temperature 36.5 C Pulse Rate 83 84 Respiratory Rate 20 Blood Pressure 114/62 Pulse Oximetry 90 94 Oxygen Delivery High Flow Nasal Cannula Oxygen Flow Rate 6 Fraction of Inspired Oxygen 12/04/24 00:57 12/04/24 01:21 12/04/24 02:00 Temperature Pulse Rate 82 86 83 Respiratory Rate Blood Pressure Pulse Oximetry 91 Oxygen Delivery Autopap Oxygen Flow Rate Fraction of Inspired Oxygen 12/04/24 02:37 12/04/24 03:45 12/04/24 04:00 Temperature 36.5 C Pulse Rate 87 61 Respiratory Rate 32 H Blood Pressure 125/73 Pulse Oximetry 92 94 96 Oxygen Delivery Autopap High Flow Nasal Cannula Oxygen Flow Rate 6 Fraction of Inspired Oxygen 12/04/24 04:00 12/04/24 05:44 12/04/24 06:00 Temperature Pulse Rate 64 65 66 Respiratory Rate Blood Pressure Pulse Oximetry 94 Oxygen Delivery Autopap Oxygen Flow Rate Fraction of Inspired Oxygen 12/04/24 06:23 12/04/24 07:45 12/04/24 07:45 Temperature Pulse Rate 73 74 Respiratory Rate 18 Blood Pressure Pulse Oximetry 93 Oxygen Delivery High Flow Nasal Cannula Oxygen Flow Rate 6 Fraction of Inspired Oxygen 12/04/24 08:00 12/04/24 08:00 12/04/24 08:10 Temperature 36.4 C L Pulse Rate 73 67 Respiratory Rate 24 H Blood Pressure 117/73 Pulse Oximetry 91 91 Oxygen Delivery High Flow Nasal Cannula Oxygen Flow Rate 6 Fraction of Inspired Oxygen 12/04/24 08:37 12/04/24 10:00 12/04/24 11:04 Temperature Pulse Rate 60 86 67 Respiratory Rate 20 Blood Pressure Pulse Oximetry Oxygen Delivery Oxygen Flow Rate Fraction of Inspired Oxygen 12/04/24 11:15 12/04/24 11:42 12/04/24 12:00 Temperature 36.4 C Pulse Rate 80 80 Respiratory Rate 20 16 Blood Pressure 114/70 Pulse Oximetry 90 95 Oxygen Delivery High Flow Nasal Cannula Oxygen Flow Rate 6 Fraction of Inspired Oxygen 12/04/24 12:00 12/04/24 12:00 12/04/24 14:00 Temperature Pulse Rate 82 75 Respiratory Rate Blood Pressure Pulse Oximetry 93 Oxygen Delivery High Flow Nasal Cannula Oxygen Flow Rate 6 Fraction of Inspired Oxygen 12/04/24 15:36 12/04/24 15:53 12/04/24 15:53 Temperature Pulse Rate 86 Respiratory Rate 20 Blood Pressure Pulse Oximetry 95 93 Oxygen Delivery High Flow Nasal Cannula High Flow Nasal Cannula Oxygen Flow Rate 6 4 Fraction of Inspired Oxygen 12/04/24 16:00 12/04/24 16:00 12/04/24 16:00 Temperature 36.3 C L Pulse Rate 89 80 Respiratory Rate 20 Blood Pressure 165/72 H Pulse Oximetry 91 100 Oxygen Delivery High Flow Nasal Cannula Oxygen Flow Rate 4 Fraction of Inspired Oxygen 12/04/24 16:03 Temperature Pulse Rate 83 Respiratory Rate 20 Blood Pressure Pulse Oximetry Oxygen Delivery Oxygen Flow Rate Fraction of Inspired Oxygen Intake/Output Intake/Output: Intake & Output 12/01/24 12/02/24 12/03/24 12/04/24 23:59 23:59 23:59 23:59 Intake Total 1999 3513.4 1382.5 Output Total 3200 4250 Balance 1999 313.4 -2867.5 Meds/Results Medications: Active Medications Generic Name Dose Route Start Last Admin Trade Name Freq PRN Reason Stop Dose Admin Acetaminophen 650 mg 12/03/24 14:07 12/03/24 14:21 Acetaminophen 325 Mg Tablet PO 650 mg Q4H PRN Administration Headache Albuterol 2 puff 12/02/24 23:29 Albuterol Sulfate (*Sp) Aerosol 1 Puff INHALATION Q6HRT PRN shortness of breath or wheezing Albuterol 2.5 mg 12/04/24 12:00 12/04/24 15:53 Albuterol Sulfate Neb 2.5 Mg/3 Ml Inh INHALATION 2.5 mg Q4HRT BANG Administration Atorvastatin Calcium 40 mg 12/03/24 09:00 12/04/24 08:37 Atorvastatin 40 Mg Tablet PO 40 mg DAILY BANG Administration Diltiazem HCl 120 mg 12/04/24 09:00 12/04/24 08:36 Diltiazem Hcl Cd 120 Mg Cap.24hr PO 120 mg QAM BANG Administration Fentanyl Citrate 25 mcg 12/03/24 10:17 12/03/24 12:35 Fentanyl Citrate Inj (*Crx) 100 Mcg/2 Ml Vial IV PUSH 25 mcg Q2M PRN Administration Pain Fluticasone Propionate 1 spray 12/03/24 09:00 12/04/24 08:38 Fluticasone Propionate 0.05% Na Spr 16 Gm Btl (*Bkc) NASAL 1 spray DAILY BANG Administration Ceftriaxone Sodium 1 gm in 50 mls @ 100 mls/hr 12/03/24 22:00 12/03/24 21:44 Rocephin 1 Gm/Ns 50 Ml IVPB 100 mls/hr Q24H BANG Administration Metoprolol Tartrate 50 mg 12/04/24 09:00 12/04/24 08:37 Metoprolol Tartrate 50 Mg Tab PO 50 mg Q12HR BANG Administration Ondansetron HCl 4 mg 12/03/24 06:23 12/03/24 06:33 Ondansetron Hcl Odt 4 Mg Tablet PO 4 mg Q6H PRN Administration Nausea And Vomiting Ondansetron HCl 4 mg 12/03/24 10:17 Ondansetron Inj 4 Mg/2 Ml Vial IV PUSH ONCE PRN Nausea Perflutren Lipid Microsphere 0 ml 12/03/24 08:47 Perflutren Lipid Microspheres 1.5 Ml Vial Diluted To 10 Ml Total Volume IV PUSH 12/06/24 08:47 ONCE PRN adequate visualization Protocol Perflutren Lipid Microsphere 0 ml 12/04/24 14:37 Perflutren Lipid Microspheres 1.5 Ml Vial Diluted To 10 Ml Total Volume IV PUSH 12/07/24 14:37 ONCE PRN adequate visualization Protocol Fluticasone/Salmeterol 2 puff 12/03/24 08:00 12/04/24 07:45 Fluticasone/Salmeterol 115-21 Mcg Inhaler 1 Puff INHALATION 2 puff Q12HRT BANG Administration Sodium Bicarbonate 650 mg 12/04/24 11:55 12/04/24 17:07 Sodium Bicarbonate Tab 650 Mg Tablet PO 12/06/24 17:01 650 mg BID BANG Administration Sodium Zirconium Cyclosilicate 10 gm 12/04/24 10:00 12/04/24 17:07 Sodium Zirconium Cyclosilicate 10 Gm Powd.Pack PO 10 gm BID@1000,1800 BANG Administration Tamsulosin HCl 0.4 mg 12/03/24 09:00 12/04/24 08:37 Tamsulosin Hcl 0.4 Mg Capsule PO 0.4 mg DAILY BANG Administration Radiology Results: ITS Impressions Abdomen/Pelvis CT 12/02/24 18:41 IMPRESSION: Bilateral hydroureteronephrosis without an obstructing calculus identified. Abnormal mural thickening within the posterior wall of the bladder for which a malignancy is suspected and for which direct visualization is recommended. Chest X-Ray 12/04/24 13:32 Impression: Diffuse pulmonary disease, suggestive of diffuse pulmonary edema and/or chronic interstitial disease. Correlate clinically. Minimal pleural effusions. Labs Labs: Laboratory Results - last 24 hr 12/03/24 12/04/24 12/04/24 16:40 04:23 13:06 WBC 10.5 H RBC 3.49 L Hgb 12.0 L Hct 36.0 L MCV 103.2 H MCH 34.4 H MCHC 33.3 RDW 13.8 Plt Count 167 MPV 11.8 H Immature Gran % (Auto) Neut % (Auto) Lymph % (Auto) [place] % (Auto) Eos % (Auto) Baso % (Auto) Lymph # (Auto) [place] # (Auto) Eos # (Auto) Baso # (Auto) Abs Immat Gran (auto) Absolute Neuts (auto) Absolute Nucleated RBC Band Neutrophils % Nucleated RBC % Platelet Estimate Large Platelets Giant Platelets Schistocytes Sodium 139 Potassium 5.4 H Chloride 112 H Carbon Dioxide 16 L Anion Gap 11 BUN 60 H D Creatinine 6.70 H Estim Creat Clear Calc 11 Estimated GFR 8 L Glucose 129 H Calcium 8.3 L Total Bilirubin 0.4 AST 16 L ALT 15 Alkaline Phosphatase 75 Total Protein 7.0 Albumin 3.2 L Prostate Specific Ag 5.1 H Hep Bs Antigen Negative Hep Bs Antibody Negative SARS-CoV-2 RNA (RT-PCR) Negative 12/04/24 16:43 WBC 11.6 H RBC 3.48 L Hgb 11.8 L Hct 35.6 L MCV 102.3 H MCH 33.9 MCHC 33.1 RDW 14.1 Plt Count 170 MPV 11.8 H Immature Gran % (Auto) 0.6 H Neut % (Auto) 85.7 H Lymph % (Auto) 4.2 L [place] % (Auto) 9.5 H Eos % (Auto) 0.0 Baso % (Auto) 0.0 L Lymph # (Auto) 0.48 L [place] # (Auto) 1.1 H Eos # (Auto) 0.0 Baso # (Auto) 0.0 Abs Immat Gran (auto) 0.07 H Absolute Neuts (auto) 9.9 H Absolute Nucleated RBC 0.000 Band Neutrophils % Not Reportable Nucleated RBC % 0.0 Platelet Estimate Adequate Large Platelets Present Giant Platelets Present Schistocytes None seen Sodium Potassium Chloride Carbon Dioxide Anion Gap BUN Creatinine Estim Creat Clear Calc Estimated GFR Glucose Calcium Total Bilirubin AST ALT Alkaline Phosphatase Total Protein Albumin Prostate Specific Ag Hep Bs Antigen Hep Bs Antibody SARS-CoV-2 RNA (RT-PCR)
[2024-12-05] VITALS (27 sets, daily range): BP systolic 100–132; BP diastolic 66–98; PULSE 65–138; RESP 16–22; TEMP 36.6–37.1; O2SAT 92–100
[2024-12-05] MEDS: ALBUTEROL SULFATE NEB 2.5 MG/3 ML INH INHALATION ×6 (04:32→23:24)
[2024-12-05 04:48] LABS: Anion Gap 8 mmol/L (4-12); Blood Urea Nitrogen 46 mg/dL (9-20); Carbon Dioxide 20 mmol/L (22-30); Chloride 111 mmol/L (98-107); Estimated CRCL calculation 23 ml/min; Estimated Glomerular Filt Rate 19; Glucose 112 mg/dL (65-110); Potassium 4.1 mmol/L (3.4-5.0); Sodium 139 mmol/L (137-145)
[2024-12-05 06:18] LABS: Hepatitis B Core Ab Total NON-REACTIVE (NON-REACTIVE)
[2024-12-05] MEDS: FLUTICASONE/SALMETEROL 115-21 MCG INHALER 1 PUFF 2 PUFF INHALATION ×2 (07:53→19:47)
--- NOTE | 2024-12-05 08:10 | PM.PNCARD ---
Progress Note: A&P Assessment and Plan (1) Atrial fibrillation with RVR: Code(s): I48.91 - Unspecified atrial fibrillation Status: Acute Assessment and Plan: Asymptomatic. [id number] 0. On aspirin. Rate controlled. On Diltiazem CD 120 mg daily and decrease Metoprolol Tarate 25 mg BID. No further cardiac workup. Will sign off, please call with any questions. (2) Dyslipidemia: Code(s): E78.5 - Hyperlipidemia, unspecified Status: Acute Assessment and Plan: On Atorvastatin. (3) Systolic dysfunction: Code(s): I51.9 - Heart disease, unspecified Status: Acute Assessment and Plan: Resolved. 12/03/24 Echo: EF 55-60%, severe biatrial enlargement, mild MR, RVSP 42 mmHg. (4) Acute renal failure: Qualifiers: Acute renal failure type: unspecified Qualified Code(s): N17.9 - Acute kidney failure, unspecified Code(s): N17.9 - Acute kidney failure, unspecified Status: Acute Assessment and Plan: Improving. Seeing cert pharmacy tech. (5) Acute UTI: Code(s): N39.0 - Urinary tract infection, site not specified Status: Acute Assessment and Plan: On antibiotics. (6) Bladder wall thickening: Code(s): N32.89 - Other specified disorders of bladder Status: Acute Assessment and Plan: Due to bladder cancer. Seeing oncology, urology. Subjective Date/time seen: 12/05/24 08:10 Interval history: Has some sob. No chest pains. Exam Const: General: cooperative, healthy appearing and comfortable Orientation/consciousness: oriented to person, oriented to place and oriented to time Resp: Auscultation: clear to auscultation bilaterally, no crackles, no rales, no rhonchi and no wheezes Cardio: Rate: regular rate Rhythm: abnormal rhythm Heart sounds: no murmurs Peripheral pulses: dorsalis pedis present Neuro: General: oriented to person, oriented to place and oriented to time Extrem: Right lower extremity: no edema Left lower extremity: no edema Objective Data Vital Signs Vital Signs: Vital Signs - 24 hr 12/04/24 08:37 12/04/24 10:00 12/04/24 11:04 Temperature Pulse Rate 60 86 67 Respiratory Rate 20 Blood Pressure Pulse Oximetry Oxygen Delivery Oxygen Flow Rate Fraction of Inspired Oxygen 12/04/24 11:15 12/04/24 11:42 12/04/24 12:00 Temperature 97.6 F Pulse Rate 80 80 Respiratory Rate 20 16 Blood Pressure 114/70 Pulse Oximetry 90 95 Oxygen Delivery High Flow Nasal Cannula Oxygen Flow Rate 6 Fraction of Inspired Oxygen 12/04/24 12:00 12/04/24 12:00 12/04/24 14:00 Temperature Pulse Rate 82 75 Respiratory Rate Blood Pressure Pulse Oximetry 93 Oxygen Delivery High Flow Nasal Cannula Oxygen Flow Rate 6 Fraction of Inspired Oxygen 12/04/24 15:36 12/04/24 15:53 12/04/24 15:53 Temperature Pulse Rate 86 Respiratory Rate 20 Blood Pressure Pulse Oximetry 95 93 Oxygen Delivery High Flow Nasal Cannula High Flow Nasal Cannula Oxygen Flow Rate 6 4 Fraction of Inspired Oxygen 12/04/24 16:00 12/04/24 16:00 12/04/24 16:00 Temperature 97.3 F L Pulse Rate 89 80 Respiratory Rate 20 Blood Pressure 165/72 H Pulse Oximetry 91 100 Oxygen Delivery High Flow Nasal Cannula Oxygen Flow Rate 4 Fraction of Inspired Oxygen 12/04/24 16:03 12/04/24 18:00 12/04/24 20:00 Temperature 97.7 F Pulse Rate 83 101 H 100 Respiratory Rate 20 20 Blood Pressure 139/85 Pulse Oximetry 90 Oxygen Delivery Oxygen Flow Rate Fraction of Inspired Oxygen 12/04/24 20:00 12/04/24 20:00 12/04/24 20:07 Temperature Pulse Rate 129 H 129 H 104 H Respiratory Rate 20 20 Blood Pressure Pulse Oximetry 95 Oxygen Delivery High Flow Nasal Cannula Oxygen Flow Rate 4 Fraction of Inspired Oxygen 12/04/24 20:09 12/04/24 20:17 12/04/24 21:10 Temperature Pulse Rate 108 H 109 H Respiratory Rate 20 Blood Pressure Pulse Oximetry 95 Oxygen Delivery High Flow Nasal Cannula Oxygen Flow Rate 4 Fraction of Inspired Oxygen 12/04/24 22:00 12/04/24 23:21 12/04/24 23:28 Temperature Pulse Rate 110 H 90 99 Respiratory Rate 20 20 Blood Pressure Pulse Oximetry Oxygen Delivery Oxygen Flow Rate Fraction of Inspired Oxygen 12/04/24 23:29 12/04/24 23:56 12/05/24 00:00 Temperature 97.8 F Pulse Rate 86 99 81 Respiratory Rate 20 20 Blood Pressure 112/69 Pulse Oximetry 95 92 92 Oxygen Delivery Autopap Autopap Oxygen Flow Rate Fraction of Inspired Oxygen 6 12/05/24 00:00 12/05/24 04:00 12/05/24 04:00 Temperature 97.8 F Pulse Rate 81 67 78 Respiratory Rate 20 Blood Pressure 108/70 Pulse Oximetry 94 Oxygen Delivery Oxygen Flow Rate Fraction of Inspired Oxygen 12/05/24 04:00 12/05/24 04:33 12/05/24 04:35 Temperature Pulse Rate 78 74 74 Respiratory Rate 20 20 Blood Pressure Pulse Oximetry 94 95 Oxygen Delivery Autopap Autopap Oxygen Flow Rate Fraction of Inspired Oxygen 6 12/05/24 04:39 12/05/24 05:12 12/05/24 07:56 Temperature Pulse Rate 70 78 Respiratory Rate 20 Blood Pressure Pulse Oximetry 94 Oxygen Delivery High Flow Nasal Cannula Oxygen Flow Rate 4 Fraction of Inspired Oxygen 12/05/24 07:56 12/05/24 08:05 Temperature Pulse Rate 74 87 Respiratory Rate 22 H 22 H Blood Pressure Pulse Oximetry Oxygen Delivery Oxygen Flow Rate Fraction of Inspired Oxygen Intake/Output Intake/Output: Intake & Output 12/02/24 12/03/24 12/04/24 12/05/24 23:59 23:59 23:59 23:59 Intake Total 1999 3563.4 1672.5 1000 Output Total 3200 4250 2850 Balance 1999 363.4 -5757.5 -4840 Meds/Results Medications: Active Medications Generic Name Dose Route Start Last Admin Trade Name Freq PRN Reason Stop Dose Admin Acetaminophen 650 mg 12/03/24 14:07 12/03/24 14:21 Acetaminophen 325 Mg Tablet PO 650 mg Q4H PRN Administration Headache Albuterol 2 puff 12/02/24 23:29 Albuterol Sulfate (*Sp) Aerosol 1 Puff INHALATION Q6HRT PRN shortness of breath or wheezing Albuterol 2.5 mg 12/04/24 12:00 12/05/24 07:53 Albuterol Sulfate Neb 2.5 Mg/3 Ml Inh INHALATION 2.5 mg Q4HRT BANG Administration Atorvastatin Calcium 40 mg 12/03/24 09:00 12/04/24 08:37 Atorvastatin 40 Mg Tablet PO 40 mg DAILY BANG Administration Diltiazem HCl 120 mg 12/04/24 09:00 12/04/24 08:36 Diltiazem Hcl Cd 120 Mg Cap.24hr PO 120 mg QAM BANG Administration Fentanyl Citrate 25 mcg 12/03/24 10:17 12/03/24 12:35 Fentanyl Citrate Inj (*Crx) 100 Mcg/2 Ml Vial IV PUSH 25 mcg Q2M PRN Administration Pain Fluticasone Propionate 1 spray 12/03/24 09:00 12/04/24 08:38 Fluticasone Propionate 0.05% Na Spr 16 Gm Btl (*Bkc) NASAL 1 spray DAILY BANG Administration Ceftriaxone Sodium 1 gm in 50 mls @ 100 mls/hr 12/03/24 22:00 12/04/24 21:40 Rocephin 1 Gm/Ns 50 Ml IVPB Infused Q24H BANG Infusion Metoprolol Tartrate 25 mg 12/05/24 09:00 Metoprolol Tartrate 25 Mg Tablet PO Q12HR BANG Ondansetron HCl 4 mg 12/03/24 06:23 12/03/24 06:33 Ondansetron Hcl Odt 4 Mg Tablet PO 4 mg Q6H PRN Administration Nausea And Vomiting Ondansetron HCl 4 mg 12/03/24 10:17 Ondansetron Inj 4 Mg/2 Ml Vial IV PUSH ONCE PRN Nausea Perflutren Lipid Microsphere 0 ml 12/03/24 08:47 Perflutren Lipid Microspheres 1.5 Ml Vial Diluted To 10 Ml Total Volume IV PUSH 12/06/24 08:47 ONCE PRN adequate visualization Protocol Perflutren Lipid Microsphere 0 ml 12/04/24 14:37 Perflutren Lipid Microspheres 1.5 Ml Vial Diluted To 10 Ml Total Volume IV PUSH 12/07/24 14:37 ONCE PRN adequate visualization Protocol Fluticasone/Salmeterol 2 puff 12/03/24 08:00 12/05/24 07:53 Fluticasone/Salmeterol 115-21 Mcg Inhaler 1 Puff INHALATION 2 puff Q12HRT BANG Administration Sodium Bicarbonate 650 mg 12/04/24 11:55 12/04/24 17:07 Sodium Bicarbonate Tab 650 Mg Tablet PO 12/06/24 17:01 650 mg BID BANG Administration Sodium Zirconium Cyclosilicate 10 gm 12/04/24 10:00 12/04/24 17:07 Sodium Zirconium Cyclosilicate 10 Gm Powd.Pack PO 10 gm BID@1000,1800 BANG Administration Tamsulosin HCl 0.4 mg 12/03/24 09:00 12/04/24 08:37 Tamsulosin Hcl 0.4 Mg Capsule PO 0.4 mg DAILY BANG Administration Radiology Results: ITS Impressions Abdomen/Pelvis CT 12/02/24 18:41 IMPRESSION: Bilateral hydroureteronephrosis without an obstructing calculus identified. Abnormal mural thickening within the posterior wall of the bladder for which a malignancy is suspected and for which direct visualization is recommended. Chest X-Ray 12/04/24 13:32 Impression: Diffuse pulmonary disease, suggestive of diffuse pulmonary edema and/or chronic interstitial disease. Correlate clinically. Minimal pleural effusions. Labs Labs: Laboratory Results - last 24 hr 12/04/24 12/04/24 12/04/24 04:23 13:06 16:43 WBC 11.6 H RBC 3.48 L Hgb 11.8 L Hct 35.6 L MCV 102.3 H MCH 33.9 MCHC 33.1 RDW 14.1 Plt Count 170 MPV 11.8 H Immature Gran % (Auto) 0.6 H Neut % (Auto) 85.7 H Lymph % (Auto) 4.2 L [place] % (Auto) 9.5 H Eos % (Auto) 0.0 Baso % (Auto) 0.0 L Lymph # (Auto) 0.48 L [place] # (Auto) 1.1 H Eos # (Auto) 0.0 Baso # (Auto) 0.0 Abs Immat Gran (auto) 0.07 H Absolute Neuts (auto) 9.9 H Absolute Nucleated RBC 0.000 Band Neutrophils % Not Reportable Nucleated RBC % 0.0 Platelet Estimate Adequate Large Platelets Present Giant Platelets Present Schistocytes None seen Sodium Potassium Chloride Carbon Dioxide Anion Gap BUN Creatinine Estim Creat Clear Calc Estimated GFR Glucose Calcium Phosphorus Albumin Hep B Core Total Ab Non-reactive SARS-CoV-2 RNA (RT-PCR) Negative 12/05/24 04:11 WBC RBC Hgb Hct MCV MCH MCHC RDW Plt Count MPV Immature Gran % (Auto) Neut % (Auto) Lymph % (Auto) [place] % (Auto) Eos % (Auto) Baso % (Auto) Lymph # (Auto) [place] # (Auto) Eos # (Auto) Baso # (Auto) Abs Immat Gran (auto) Absolute Neuts (auto) Absolute Nucleated RBC Band Neutrophils % Nucleated RBC % Platelet Estimate Large Platelets Giant Platelets Schistocytes Sodium 139 Potassium 4.1 Chloride 111 H Carbon Dioxide 20 L Anion Gap 8 BUN 46 H D Creatinine 3.23 H Estim Creat Clear Calc 23 Estimated GFR 19 L Glucose 112 H Calcium 8.0 L Phosphorus 4.0 Albumin 3.0 L Hep B Core Total Ab SARS-CoV-2 RNA (RT-PCR)
[2024-12-05] MEDS: ATORVASTATIN 40 MG TABLET PO (08:43)
[2024-12-05] MEDS: TAMSULOSIN HCL 0.4 MG CAPSULE PO (08:43)
[2024-12-05] MEDS: FLUTICASONE PROPIONATE 0.05% NA SPR 16 GM BTL (*BKC) 1 SPRAY NASAL (08:43)
[2024-12-05] MEDS: dilTIAZem HCL CD 120 MG CAP.24HR PO (08:43)
[2024-12-05] MEDS: SODIUM BICARBONATE TAB 650 MG TABLET PO ×2 (08:44→17:26)
[2024-12-05] MEDS: METOPROLOL TARTRATE 25 MG TABLET PO ×2 (08:44→21:02)
--- NOTE | 2024-12-05 10:52 | WPDONCPN ---
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 Further workup in the ER with CBC and CMP showed a creatinine of 12.7 and patient in acute renal failure. A CT scan of abdomen and pelvis without contrast was obtained which showed bilateral hydroureteronephrosis without stone. There was significant perinephric inflammation. There was mural wall thickening of the posterior wall of the bladder concerning for bladder cancer. Patient was seen by urology team and underwent cystoscopy on 12/03/2024. The cystoscopy showed very large dense solid neoplasm arising at the bladder neck and extending into the trigone more on the left than the right. The large section of mass was resected from the left hemanth trigone in attempt to find the left ureteral orifice but urologist was not able to identify left ureteral orifice. Right ureteral orifice was identified and a stent was placed. About 5-6 cm of the mass was resected via TURBT. Pathology is reported and is consistent with high-grade urothelial cancer with muscle invasion. Patient will need a appropriate staging scan but creatinine is too high to administer IV contrast for good CT of the chest abdomen and pelvis. If after proper staging scans there is no evidence of richard disease or metastasis then patient could be a candidate for bladder sparing treatment. This could include maximum TURBT by Urology followed by concurrent chemotherapy and radiation. At this time his creatinine has decreased from 12.7 at admission to 3.23 today after urological intervention with right ureteral stent. However he is no where closer to receive cisplatin chemotherapy due to renal dysfunction. However I am hopeful that he will normalize his creatinine as his last creatinine at baseline was 1.23 few years ago. I explained this to patient, his brother and his owueic-mg-psr present at bedside on 12/04/2024. I will continue to follow along while patient is hospitalized here. At discharge he will be needing to see Dr. Friedman as an outpatient for suitable staging studies and treatment planning. He will also need to see radiation oncologist for their input as an outpatient. Subjective Date/time seen: 12/05/24 10:52 Interval history: Patient rested well overnight and states that dyspnea is better. No overnight events. Review of Systems Review of Systems Patient reports that he feels much better than before. He is able to drain the urine through the catheter. He denies any fever, chills, night sweats. He denies any chest pain, shortness of breath, cough, hemoptysis. He denies any dizziness, lightheadedness. There has been difficulty passing bowels as well and patient said that he had to strain to pass the bowels. Rest of the 12 point review of system is negative Exam Narrative: General: Alert and oriented x3, ill-appearing male in no acute distress HEENT: EOMI, no scleral icterus, no gross abnormalities of the head noted CV: Regular rate and rhythm no murmur gallops or rubs RESP: Lungs clear to auscultation bilaterally Abdomen: Soft nontender nondistended bowel sounds present Neuro: No [employer] deficit noted Objective Data Vital Signs Vital Signs: Vital Signs - 24 hr 12/04/24 11:04 12/04/24 11:15 12/04/24 11:42 Temperature Pulse Rate 67 80 Respiratory Rate 20 20 Blood Pressure Pulse Oximetry 90 Oxygen Delivery High Flow Nasal Cannula Oxygen Flow Rate 6 Fraction of Inspired Oxygen 12/04/24 12:00 12/04/24 12:00 12/04/24 12:00 Temperature 36.4 C Pulse Rate 80 82 Respiratory Rate 16 Blood Pressure 114/70 Pulse Oximetry 95 93 Oxygen Delivery High Flow Nasal Cannula Oxygen Flow Rate 6 Fraction of Inspired Oxygen 12/04/24 14:00 12/04/24 15:36 12/04/24 15:53 Temperature Pulse Rate 75 Respiratory Rate Blood Pressure Pulse Oximetry 95 93 Oxygen Delivery High Flow Nasal Cannula High Flow Nasal Cannula Oxygen Flow Rate 6 4 Fraction of Inspired Oxygen 12/04/24 15:53 12/04/24 16:00 12/04/24 16:00 Temperature 36.3 C L Pulse Rate 86 89 Respiratory Rate 20 20 Blood Pressure 165/72 H Pulse Oximetry 91 100 Oxygen Delivery High Flow Nasal Cannula Oxygen Flow Rate 4 Fraction of Inspired Oxygen 12/04/24 16:00 12/04/24 16:03 12/04/24 18:00 Temperature Pulse Rate 80 83 101 H Respiratory Rate 20 Blood Pressure Pulse Oximetry Oxygen Delivery Oxygen Flow Rate Fraction of Inspired Oxygen 12/04/24 20:00 12/04/24 20:00 12/04/24 20:00 Temperature 36.5 C Pulse Rate 100 129 H 129 H Respiratory Rate 20 20 Blood Pressure 139/85 Pulse Oximetry 90 95 Oxygen Delivery High Flow Nasal Cannula Oxygen Flow Rate 4 Fraction of Inspired Oxygen 12/04/24 20:07 12/04/24 20:09 12/04/24 20:17 Temperature Pulse Rate 104 H 108 H Respiratory Rate 20 20 Blood Pressure Pulse Oximetry 95 Oxygen Delivery High Flow Nasal Cannula Oxygen Flow Rate 4 Fraction of Inspired Oxygen 12/04/24 21:10 12/04/24 22:00 12/04/24 23:21 Temperature Pulse Rate 109 H 110 H 90 Respiratory Rate 20 Blood Pressure Pulse Oximetry Oxygen Delivery Oxygen Flow Rate Fraction of Inspired Oxygen 12/04/24 23:28 12/04/24 23:29 12/04/24 23:56 Temperature 36.6 C Pulse Rate 99 86 99 Respiratory Rate 20 20 Blood Pressure 112/69 Pulse Oximetry 95 92 Oxygen Delivery Autopap Oxygen Flow Rate Fraction of Inspired Oxygen 12/05/24 00:00 12/05/24 00:00 12/05/24 04:00 Temperature 36.6 C Pulse Rate 81 81 67 Respiratory Rate 20 20 Blood Pressure 108/70 Pulse Oximetry 92 94 Oxygen Delivery Autopap Oxygen Flow Rate Fraction of Inspired Oxygen 6 12/05/24 04:00 12/05/24 04:00 12/05/24 04:33 Temperature Pulse Rate 78 78 74 Respiratory Rate 20 20 Blood Pressure Pulse Oximetry 94 Oxygen Delivery Autopap Oxygen Flow Rate Fraction of Inspired Oxygen 6 12/05/24 04:35 12/05/24 04:39 12/05/24 05:12 Temperature Pulse Rate 74 70 78 Respiratory Rate 20 Blood Pressure Pulse Oximetry 95 Oxygen Delivery Autopap Oxygen Flow Rate Fraction of Inspired Oxygen 12/05/24 07:56 12/05/24 07:56 12/05/24 08:00 Temperature Pulse Rate 74 Respiratory Rate 22 H Blood Pressure Pulse Oximetry 94 97 Oxygen Delivery High Flow Nasal Cannula High Flow Nasal Cannula Oxygen Flow Rate 4 4 Fraction of Inspired Oxygen 12/05/24 08:05 12/05/24 08:11 12/05/24 08:44 Temperature 37.1 C Pulse Rate 87 83 93 Respiratory Rate 22 H Blood Pressure 126/98 H Pulse Oximetry 97 Oxygen Delivery Oxygen Flow Rate Fraction of Inspired Oxygen Intake/Output Intake/Output: Intake & Output 0412/03/24 12/04/24 12/05/24 23:59 23:59 23:59 23:59 Intake Total 1999 3563.4 1672.5 1240 Output Total 3200 5972 7897 Balance 1999 363.4 -5225.5 -1610 Meds/Results Medications: Active Medications Generic Name Dose Route Start Last Admin Trade Name Freq PRN Reason Stop Dose Admin Acetaminophen 650 mg 12/03/24 14:07 12/03/24 14:21 Acetaminophen 325 Mg Tablet PO 650 mg Q4H PRN Administration Headache Albuterol 2 puff 12/02/24 23:29 Albuterol Sulfate (*Sp) Aerosol 1 Puff INHALATION Q6HRT PRN shortness of breath or wheezing Albuterol 2.5 mg 12/04/24 12:00 12/05/24 07:53 Albuterol Sulfate Neb 2.5 Mg/3 Ml Inh INHALATION 2.5 mg Q4HRT BANG Administration Atorvastatin Calcium 40 mg 12/03/24 09:00 12/05/24 08:43 Atorvastatin 40 Mg Tablet PO 40 mg DAILY BANG Administration Diltiazem HCl 120 mg 12/04/24 09:00 12/05/24 08:43 Diltiazem Hcl Cd 120 Mg Cap.24hr PO 120 mg QAM BANG Administration Fentanyl Citrate 25 mcg 12/03/24 10:17 12/03/24 12:35 Fentanyl Citrate Inj (*Crx) 100 Mcg/2 Ml Vial IV PUSH 25 mcg Q2M PRN Administration Pain Fluticasone Propionate 1 spray 12/03/24 09:00 12/05/24 08:43 Fluticasone Propionate 0.05% Na Spr 16 Gm Btl (*Bkc) NASAL 1 spray DAILY BANG Administration Ceftriaxone Sodium 1 gm in 50 mls @ 100 mls/hr 12/03/24 22:00 12/04/24 21:40 Rocephin 1 Gm/Ns 50 Ml IVPB Infused Q24H BANG Infusion Metoprolol Tartrate 25 mg 12/05/24 09:00 12/05/24 08:44 Metoprolol Tartrate 25 Mg Tablet PO 25 mg Q12HR BANG Administration Ondansetron HCl 4 mg 12/03/24 06:23 12/03/24 06:33 Ondansetron Hcl Odt 4 Mg Tablet PO 4 mg Q6H PRN Administration Nausea And Vomiting Ondansetron HCl 4 mg 12/03/24 10:17 Ondansetron Inj 4 Mg/2 Ml Vial IV PUSH ONCE PRN Nausea Perflutren Lipid Microsphere 0 ml 12/03/24 08:47 Perflutren Lipid Microspheres 1.5 Ml Vial Diluted To 10 Ml Total Volume IV PUSH 12/06/24 08:47 ONCE PRN adequate visualization Protocol Perflutren Lipid Microsphere 0 ml 12/04/24 14:37 Perflutren Lipid Microspheres 1.5 Ml Vial Diluted To 10 Ml Total Volume IV PUSH 12/07/24 14:37 ONCE PRN adequate visualization Protocol Fluticasone/Salmeterol 2 puff 12/03/24 08:00 12/05/24 07:53 Fluticasone/Salmeterol 115-21 Mcg Inhaler 1 Puff INHALATION 2 puff Q12HRT BANG Administration Sodium Bicarbonate 650 mg 12/04/24 11:55 12/05/24 08:44 Sodium Bicarbonate Tab 650 Mg Tablet PO 12/06/24 17:01 650 mg BID BANG Administration Sodium Zirconium Cyclosilicate 10 gm 12/04/24 10:00 12/04/24 17:07 Sodium Zirconium Cyclosilicate 10 Gm Powd.Pack PO 10 gm BID@1000,1800 BANG Administration Tamsulosin HCl 0.4 mg 12/03/24 09:00 12/05/24 08:43 Tamsulosin Hcl 0.4 Mg Capsule PO 0.4 mg DAILY BANG Administration Radiology Results: ITS Impressions Abdomen/Pelvis CT 12/02/24 18:41 IMPRESSION: Bilateral hydroureteronephrosis without an obstructing calculus identified. Abnormal mural thickening within the posterior wall of the bladder for which a malignancy is suspected and for which direct visualization is recommended. Chest X-Ray 12/04/24 13:32 Impression: Diffuse pulmonary disease, suggestive of diffuse pulmonary edema and/or chronic interstitial disease. Correlate clinically. Minimal pleural effusions. Labs Labs: Laboratory Results - last 24 hr 12/04/24 12/04/24 12/04/24 04:23 13:06 16:43 WBC 11.6 H RBC 3.48 L Hgb 11.8 L Hct 35.6 L MCV 102.3 H MCH 33.9 MCHC 33.1 RDW 14.1 Plt Count 170 MPV 11.8 H Immature Gran % (Auto) 0.6 H Neut % (Auto) 85.7 H Lymph % (Auto) 4.2 L [place] % (Auto) 9.5 H Eos % (Auto) 0.0 Baso % (Auto) 0.0 L Lymph # (Auto) 0.48 L [place] # (Auto) 1.1 H Eos # (Auto) 0.0 Baso # (Auto) 0.0 Abs Immat Gran (auto) 0.07 H Absolute Neuts (auto) 9.9 H Absolute Nucleated RBC 0.000 Band Neutrophils % Not Reportable Nucleated RBC % 0.0 Platelet Estimate Adequate Large Platelets Present Giant Platelets Present Schistocytes None seen Sodium Potassium Chloride Carbon Dioxide Anion Gap BUN Creatinine Estim Creat Clear Calc Estimated GFR Glucose Calcium Phosphorus Albumin Hep B Core Total Ab Non-reactive SARS-CoV-2 RNA (RT-PCR) Negative 12/05/24 04:11 WBC RBC Hgb Hct MCV MCH MCHC RDW Plt Count MPV Immature Gran % (Auto) Neut % (Auto) Lymph % (Auto) [place] % (Auto) Eos % (Auto) Baso % (Auto) Lymph # (Auto) [place] # (Auto) Eos # (Auto) Baso # (Auto) Abs Immat Gran (auto) Absolute Neuts (auto) Absolute Nucleated RBC Band Neutrophils % Nucleated RBC % Platelet Estimate Large Platelets Giant Platelets Schistocytes Sodium 139 Potassium 4.1 Chloride 111 H Carbon Dioxide 20 L Anion Gap 8 BUN 46 H D Creatinine 3.23 H Estim Creat Clear Calc 23 Estimated GFR 19 L Glucose 112 H Calcium 8.0 L Phosphorus 4.0 Albumin 3.0 L Hep B Core Total Ab SARS-CoV-2 RNA (RT-PCR)
--- NOTE | 2024-12-05 11:31 | P.PNNP_ITS ---
Progress Note: A&P Assessment and Plan (1) Acute kidney injury: Code(s): N17.9 - Acute kidney failure, unspecified Status: Acute Assessment and Plan: * presumed to be secondary to obstructive uropathy * right ureteral stent placed. * Left ureteral orifice was unable to be found. * Creatinine is improving rapidly even with just 1 kidney managed. * Eventually other kidney will have to be dealt with. (2) Hydroureteronephrosis: Code(s): N13.30 - Unspecified hydronephrosis Status: Acute Assessment and Plan: * bilateral and as noted on admission CT of abdomen/pelvis * Urology following: * s/p cystoscopy, right retrograde pyelography and right ureteral stent placement and TURBT * attempted left ureteral stent placement (but unable to locate left ureteral orifice) * will likely need placement of a left percutaneous nephrostomy tube with eventual internalization of ureteral stent (3) Hyperkalemia: Code(s): E87.5 - Hyperkalemia Status: Acute Assessment and Plan: * due to #1 and #2 * s/p medical management * Potassium down to normal today (4) Metabolic acidosis: Code(s): E87.20 - Acidosis, unspecified Status: Acute Assessment and Plan: * due to HOANG/ARF * CO2 improving. * He is on sodium bicarbonate twice a day (5) Hypoxia: Code(s): R09.02 - Hypoxemia Status: Acute Assessment and Plan: * as noted since afternoon of 12/03 * now requiring supplemental oxygen * CXR with evidence of pleural effusions and congestion * however, previous imaging (CT of chest in 2023) notes evidence of emphysema as wel... * hold further IVFs * one time dose of IV bumex today (this will also help with #3) * hopefully post-obstructive diureses will help as well * Echo (on 12/03) noted: * left ventricular systolic function is normal, estimated at 55-60% * left ventricular diastolic function is normal * mitral valve has mildly calcified annulus * mild mitral valve regurgitation * mild pulmonary hypertension, estimated pulmonary arterial systolic pressure is 42 mmHg * breathing okay on 4L of oxygen (6) Atrial fibrillation with RVR: Code(s): I48.91 - Unspecified atrial fibrillation Status: Acute Assessment and Plan: * heart rate good at 79 today * on diltiazem and metoprolol * Cardiology signed off * I am assuming he will need to be back on anticoagulants once all of the above is worked out (7) Acute UTI: Code(s): N39.0 - Urinary tract infection, site not specified Status: Acute Assessment and Plan: * admission UA suggestive * however, urine culture was not done * on antibiotics (8) Mass of bladder: Code(s): N32.89 - Other specified disorders of bladder Status: Acute Assessment and Plan: * suspect malignancy (urothelial carcinoma +/- prostate cancer) * s/p TURBT * pathology pending * Urology and Oncology following Subjective Date/time seen: 12/05/24 11:31 Interval history: patient is feeling okay. Visiting with Dr. Preston. patient is having no chest pain or shortness of breath. No swelling. Exam Narrative: General: elderly but WD/WN male in NAD Neuro: a and O x3 Psyche: not anxious or depressed Extremities: no cyanosis or clubbing; no edema Skin: warm and dry Objective Data Vital Signs Vital Signs: Vital Signs - 24 hr 12/04/24 11:42 12/04/24 12:00 12/04/24 12:00 Temperature 97.6 F Pulse Rate 80 Respiratory Rate 16 Blood Pressure 114/70 Pulse Oximetry 90 95 93 Oxygen Delivery High Flow Nasal Cannula High Flow Nasal Cannula Oxygen Flow Rate 6 6 Fraction of Inspired Oxygen 12/04/24 12:00 12/04/24 14:00 12/04/24 15:36 Temperature Pulse Rate 82 75 Respiratory Rate Blood Pressure Pulse Oximetry 95 Oxygen Delivery High Flow Nasal Cannula Oxygen Flow Rate 6 Fraction of Inspired Oxygen 12/04/24 15:53 12/04/24 15:53 12/04/24 16:00 Temperature Pulse Rate 86 Respiratory Rate 20 Blood Pressure Pulse Oximetry 93 91 Oxygen Delivery High Flow Nasal Cannula High Flow Nasal Cannula Oxygen Flow Rate 4 4 Fraction of Inspired Oxygen 12/04/24 16:00 12/04/24 16:00 12/04/24 16:03 Temperature 97.3 F L Pulse Rate 89 80 83 Respiratory Rate 20 20 Blood Pressure 165/72 H Pulse Oximetry 100 Oxygen Delivery Oxygen Flow Rate Fraction of Inspired Oxygen 12/04/24 18:00 12/04/24 20:00 12/04/24 20:00 Temperature 97.7 F Pulse Rate 101 H 100 129 H Respiratory Rate 20 20 Blood Pressure 139/85 Pulse Oximetry 90 95 Oxygen Delivery High Flow Nasal Cannula Oxygen Flow Rate 4 Fraction of Inspired Oxygen 12/04/24 20:00 12/04/24 20:07 12/04/24 20:09 Temperature Pulse Rate 129 H 104 H Respiratory Rate 20 Blood Pressure Pulse Oximetry 95 Oxygen Delivery High Flow Nasal Cannula Oxygen Flow Rate 4 Fraction of Inspired Oxygen 12/04/24 20:17 12/04/24 21:10 12/04/24 22:00 Temperature Pulse Rate 108 H 109 H 110 H Respiratory Rate 20 Blood Pressure Pulse Oximetry Oxygen Delivery Oxygen Flow Rate Fraction of Inspired Oxygen 12/04/24 23:21 12/04/24 23:28 12/04/24 23:29 Temperature Pulse Rate 90 99 86 Respiratory Rate 20 20 Blood Pressure Pulse Oximetry 95 Oxygen Delivery Autopap Oxygen Flow Rate Fraction of Inspired Oxygen 12/04/24 23:56 12/05/24 00:00 12/05/24 00:00 Temperature 97.8 F Pulse Rate 99 81 81 Respiratory Rate 20 20 Blood Pressure 112/69 Pulse Oximetry 92 92 Oxygen Delivery Autopap Oxygen Flow Rate Fraction of Inspired Oxygen 6 12/05/24 04:00 12/05/24 04:00 12/05/24 04:00 Temperature 97.8 F Pulse Rate 67 78 78 Respiratory Rate 20 20 Blood Pressure 108/70 Pulse Oximetry 94 94 Oxygen Delivery Autopap Oxygen Flow Rate Fraction of Inspired Oxygen 6 12/05/24 04:33 12/05/24 04:35 12/05/24 04:39 Temperature Pulse Rate 74 74 70 Respiratory Rate 20 20 Blood Pressure Pulse Oximetry 95 Oxygen Delivery Autopap Oxygen Flow Rate Fraction of Inspired Oxygen 12/05/24 05:12 12/05/24 07:56 12/05/24 07:56 Temperature Pulse Rate 78 74 Respiratory Rate 22 H Blood Pressure Pulse Oximetry 94 Oxygen Delivery High Flow Nasal Cannula Oxygen Flow Rate 4 Fraction of Inspired Oxygen 12/05/24 08:00 12/05/24 08:00 12/05/24 08:05 Temperature Pulse Rate 92 87 Respiratory Rate 22 H Blood Pressure Pulse Oximetry 97 Oxygen Delivery High Flow Nasal Cannula Oxygen Flow Rate 4 Fraction of Inspired Oxygen 12/05/24 08:11 12/05/24 08:44 12/05/24 10:00 Temperature 98.8 F Pulse Rate 83 93 92 Respiratory Rate Blood Pressure 126/98 H Pulse Oximetry 97 Oxygen Delivery Oxygen Flow Rate Fraction of Inspired Oxygen 12/05/24 11:07 12/05/24 11:15 Temperature Pulse Rate 78 79 Respiratory Rate 18 18 Blood Pressure Pulse Oximetry Oxygen Delivery Oxygen Flow Rate Fraction of Inspired Oxygen Intake/Output Intake/Output: Intake & Output 12/02/24 12/03/24 12/04/24 12/05/24 23:59 23:59 23:59 23:59 Intake Total 1999 3563.4 1672.5 1240 Output Total 3200 4250 2850 Balance 1999 363.4 -2577.5 -1610 Meds/Results Medications: Active Medications Generic Name Dose Route Start Last Admin Trade Name Freq PRN Reason Stop Dose Admin Acetaminophen 650 mg 12/03/24 14:07 12/03/24 14:21 Acetaminophen 325 Mg Tablet PO 650 mg Q4H PRN Administration Headache Albuterol 2 puff 12/02/24 23:29 Albuterol Sulfate (*Sp) Aerosol 1 Puff INHALATION Q6HRT PRN shortness of breath or wheezing Albuterol 2.5 mg 12/04/24 12:00 12/05/24 11:06 Albuterol Sulfate Neb 2.5 Mg/3 Ml Inh INHALATION 2.5 mg Q4HRT BANG Administration Atorvastatin Calcium 40 mg 12/03/24 09:00 12/05/24 08:43 Atorvastatin 40 Mg Tablet PO 40 mg DAILY BANG Administration Diltiazem HCl 120 mg 12/04/24 09:00 12/05/24 08:43 Diltiazem Hcl Cd 120 Mg Cap.24hr PO 120 mg QAM BANG Administration Fentanyl Citrate 25 mcg 12/03/24 10:17 12/03/24 12:35 Fentanyl Citrate Inj (*Crx) 100 Mcg/2 Ml Vial IV PUSH 25 mcg Q2M PRN Administration Pain Fluticasone Propionate 1 spray 12/03/24 09:00 12/05/24 08:43 Fluticasone Propionate 0.05% Na Spr 16 Gm Btl (*Bkc) NASAL 1 spray DAILY BANG Administration Ceftriaxone Sodium 1 gm in 50 mls @ 100 mls/hr 12/03/24 22:00 12/04/24 21:40 Rocephin 1 Gm/Ns 50 Ml IVPB Infused Q24H BANG Infusion Metoprolol Tartrate 25 mg 12/05/24 09:00 12/05/24 08:44 Metoprolol Tartrate 25 Mg Tablet PO 25 mg Q12HR BANG Administration Ondansetron HCl 4 mg 12/03/24 06:23 12/03/24 06:33 Ondansetron Hcl Odt 4 Mg Tablet PO 4 mg Q6H PRN Administration Nausea And Vomiting Ondansetron HCl 4 mg 12/03/24 10:17 Ondansetron Inj 4 Mg/2 Ml Vial IV PUSH ONCE PRN Nausea Perflutren Lipid Microsphere 0 ml 12/03/24 08:47 Perflutren Lipid Microspheres 1.5 Ml Vial Diluted To 10 Ml Total Volume IV PUSH 12/06/24 08:47 ONCE PRN adequate visualization Protocol Perflutren Lipid Microsphere 0 ml 12/04/24 14:37 Perflutren Lipid Microspheres 1.5 Ml Vial Diluted To 10 Ml Total Volume IV PUSH 12/07/24 14:37 ONCE PRN adequate visualization Protocol Fluticasone/Salmeterol 2 puff 12/03/24 08:00 12/05/24 07:53 Fluticasone/Salmeterol 115-21 Mcg Inhaler 1 Puff INHALATION 2 puff Q12HRT BANG Administration Sodium Bicarbonate 650 mg 12/04/24 11:55 12/05/24 08:44 Sodium Bicarbonate Tab 650 Mg Tablet PO 12/06/24 17:01 650 mg BID BANG Administration Sodium Zirconium Cyclosilicate 10 gm 12/04/24 10:00 12/04/24 17:07 Sodium Zirconium Cyclosilicate 10 Gm Powd.Pack PO 10 gm BID@1000,1800 BANG Administration Tamsulosin HCl 0.4 mg 12/03/24 09:00 12/05/24 08:43 Tamsulosin Hcl 0.4 Mg Capsule PO 0.4 mg DAILY BANG Administration Radiology Results: ITS Impressions Abdomen/Pelvis CT 12/02/24 18:41 IMPRESSION: Bilateral hydroureteronephrosis without an obstructing calculus identified. Abnormal mural thickening within the posterior wall of the bladder for which a malignancy is suspected and for which direct visualization is recommended. Chest X-Ray 12/04/24 13:32 Impression: Diffuse pulmonary disease, suggestive of diffuse pulmonary edema and/or chronic interstitial disease. Correlate clinically. Minimal pleural effusions. Labs Labs: Laboratory Results - last 24 hr 12/04/24 12/04/24 12/04/24 04:23 13:06 16:43 WBC 11.6 H RBC 3.48 L Hgb 11.8 L Hct 35.6 L MCV 102.3 H MCH 33.9 MCHC 33.1 RDW 14.1 Plt Count 170 MPV 11.8 H Immature Gran % (Auto) 0.6 H Neut % (Auto) 85.7 H Lymph % (Auto) 4.2 L [place] % (Auto) 9.5 H Eos % (Auto) 0.0 Baso % (Auto) 0.0 L Lymph # (Auto) 0.48 L [place] # (Auto) 1.1 H Eos # (Auto) 0.0 Baso # (Auto) 0.0 Abs Immat Gran (auto) 0.07 H Absolute Neuts (auto) 9.9 H Absolute Nucleated RBC 0.000 Band Neutrophils % Not Reportable Nucleated RBC % 0.0 Platelet Estimate Adequate Large Platelets Present Giant Platelets Present Schistocytes None seen Sodium Potassium Chloride Carbon Dioxide Anion Gap BUN Creatinine Estim Creat Clear Calc Estimated GFR Glucose Calcium Phosphorus Albumin Hep B Core Total Ab Non-reactive SARS-CoV-2 RNA (RT-PCR) Negative 12/05/24 04:11 WBC RBC Hgb Hct MCV MCH MCHC RDW Plt Count MPV Immature Gran % (Auto) Neut % (Auto) Lymph % (Auto) [place] % (Auto) Eos % (Auto) Baso % (Auto) Lymph # (Auto) [place] # (Auto) Eos # (Auto) Baso # (Auto) Abs Immat Gran (auto) Absolute Neuts (auto) Absolute Nucleated RBC Band Neutrophils % Nucleated RBC % Platelet Estimate Large Platelets Giant Platelets Schistocytes Sodium 139 Potassium 4.1 Chloride 111 H Carbon Dioxide 20 L Anion Gap 8 BUN 46 H D Creatinine 3.23 H Estim Creat Clear Calc 23 Estimated GFR 19 L Glucose 112 H Calcium 8.0 L Phosphorus 4.0 Albumin 3.0 L Hep B Core Total Ab SARS-CoV-2 RNA (RT-PCR)
--- NOTE | 2024-12-05 13:49 | PM.IMPN ---
Progress Note: A&P Assessment and Plan (1) Atrial fibrillation with RVR: Code(s): I48.91 - Unspecified atrial fibrillation Status: Acute Assessment and Plan: Continue Metoprolol Tartrate 25 mg PO q 6hr Diltiazem 60mg PO q hr (2) Hydroureteronephrosis: Code(s): N13.30 - Unspecified hydronephrosis Status: Acute Assessment and Plan: Urology was consulted and he underwent Cystoscopy, right retrograde pyelography and right ureteral stent placement. Attempted left ureteral stent placement. TURBT (large, 5-6cm) (3) Acute hyperkalemia: Code(s): E87.5 - Hyperkalemia Status: Acute Assessment and Plan: Given Lokelma and Albuterol (4) Acute renal failure: Qualifiers: Acute renal failure type: unspecified Qualified Code(s): N17.9 - Acute kidney failure, unspecified Code(s): N17.9 - Acute kidney failure, unspecified Status: Acute Assessment and Plan: Nephrology following Will trend Cr Possible post renal Urology was consulted and he underwent Cystoscopy, right retrograde pyelography and right ureteral stent placement. Attempted left ureteral stent placement. TURBT (large, 5-6cm) (5) Bladder wall thickening: Code(s): N32.89 - Other specified disorders of bladder Status: Acute Assessment and Plan: ass above (6) Acute UTI: Code(s): N39.0 - Urinary tract infection, site not specified Status: Acute Assessment and Plan: Continue Ceftriaxone (7) Bladder cancer: Code(s): C67.9 - Malignant neoplasm of bladder, unspecified Status: Acute Assessment and Plan: Possible poorly differentiated muscle invasive urothelial carcinoma. If confirmed as per urology neoadjuvant chemotherapy followed by cystectomy with urinary diversion Biopsy results pending Prostate cancer not rule out Oncology on board Subjective Date/time seen: 12/05/24 13:49 Interval history: Patient is currently doing well. Creatinine continues to improve. Received 1 dose of Bumex today by Nephrology. Review of Systems Review of Systems: All systems reviewed & are unremarkable except as noted in HPI and below (HPI) Exam Narrative: GENERAL APPEARANCE: well developed well nourished male in no acute distress HEENT: normocephalic, atraumatic, normal conjunctiva and sclera, nares patient NECK: no lymphadenopathy, thyromegaly, or JVD MOUTH: normal lips, teeth, and gums CARDIOVASCULAR: RRR, normal S1 and S2, no rub RESPIRATORY: clear to auscultation bilaterally ABDOMEN: soft, nontender, nondistended, positive bowel sounds present EXTREMITIES: no evidence of cyanosis, clubbing, trace edema NEUROLOGICAL: alert and oriented x 3; CN II - XII intact bilaterally; no focal deficits noted Const: General: comfortable and no acute distress Orientation/consciousness: oriented to person, oriented to place and oriented to time Other: A&O x3 HENMT: Mouth: Yes dry mucous membranes Eyes: Pupils: Equal, round and reactive pupils present Neck: Neck: supple Resp: Effort & Inspection: normal respiratory effort Auscultation: clear to auscultation bilaterally Cardio: Rate: regular rate Rhythm: regular rhythm Heart sounds: no murmurs Peripheral pulses: dorsalis pedis present GI: Inspection: non-distended Auscultation: normal bowel sounds : General: Yes bladder normal to palpation Urinary Catheter: Urinary Catheter: patent and draining and urine cloudy Neuro: General: oriented to person, oriented to place and oriented to time Cranial nerves: Yes Equal, round and reactive pupils present Motor exam (neuro): 5/5 motor strength present throughout Sensory Exam: normal sensation Extrem: General: edema (Trivial pitting edema at the bilateral lower extremities below the knees) Right lower extremity: no edema Left lower extremity: no edema Psych: Mental Status: mental status grossly normal Objective Data Vital Signs Vital Signs: Vital Signs - 24 hr 12/04/24 14:00 12/04/24 15:36 12/04/24 15:53 Temperature Pulse Rate 75 Respiratory Rate Blood Pressure Pulse Oximetry 95 93 Oxygen Delivery High Flow Nasal Cannula High Flow Nasal Cannula Oxygen Flow Rate 6 4 Fraction of Inspired Oxygen 12/04/24 15:53 12/04/24 16:00 12/04/24 16:00 Temperature 97.3 F L Pulse Rate 86 89 Respiratory Rate 20 20 Blood Pressure 165/72 H Pulse Oximetry 91 100 Oxygen Delivery High Flow Nasal Cannula Oxygen Flow Rate 4 Fraction of Inspired Oxygen 12/04/24 16:00 12/04/24 16:03 12/04/24 18:00 Temperature Pulse Rate 80 83 101 H Respiratory Rate 20 Blood Pressure Pulse Oximetry Oxygen Delivery Oxygen Flow Rate Fraction of Inspired Oxygen 12/04/24 20:00 12/04/24 20:00 12/04/24 20:00 Temperature 97.7 F Pulse Rate 100 129 H 129 H Respiratory Rate 20 20 Blood Pressure 139/85 Pulse Oximetry 90 95 Oxygen Delivery High Flow Nasal Cannula Oxygen Flow Rate 4 Fraction of Inspired Oxygen 12/04/24 20:07 12/04/24 20:09 12/04/24 20:17 Temperature Pulse Rate 104 H 108 H Respiratory Rate 20 20 Blood Pressure Pulse Oximetry 95 Oxygen Delivery High Flow Nasal Cannula Oxygen Flow Rate 4 Fraction of Inspired Oxygen 12/04/24 21:10 12/04/24 22:00 12/04/24 23:21 Temperature Pulse Rate 109 H 110 H 90 Respiratory Rate 20 Blood Pressure Pulse Oximetry Oxygen Delivery Oxygen Flow Rate Fraction of Inspired Oxygen 12/04/24 23:28 12/04/24 23:29 12/04/24 23:56 Temperature 97.8 F Pulse Rate 99 86 99 Respiratory Rate 20 20 Blood Pressure 112/69 Pulse Oximetry 95 92 Oxygen Delivery Autopap Oxygen Flow Rate Fraction of Inspired Oxygen 12/05/24 00:00 12/05/24 00:00 12/05/24 04:00 Temperature 97.8 F Pulse Rate 81 81 67 Respiratory Rate 20 20 Blood Pressure 108/70 Pulse Oximetry 92 94 Oxygen Delivery Autopap Oxygen Flow Rate Fraction of Inspired Oxygen 6 12/05/24 04:00 12/05/24 04:00 12/05/24 04:33 Temperature Pulse Rate 78 78 74 Respiratory Rate 20 20 Blood Pressure Pulse Oximetry 94 Oxygen Delivery Autopap Oxygen Flow Rate Fraction of Inspired Oxygen 6 12/05/24 04:35 12/05/24 04:39 12/05/24 05:12 Temperature Pulse Rate 74 70 78 Respiratory Rate 20 Blood Pressure Pulse Oximetry 95 Oxygen Delivery Autopap Oxygen Flow Rate Fraction of Inspired Oxygen 12/05/24 07:56 12/05/24 07:56 12/05/24 08:00 Temperature Pulse Rate 74 Respiratory Rate 22 H Blood Pressure Pulse Oximetry 94 97 Oxygen Delivery High Flow Nasal Cannula High Flow Nasal Cannula Oxygen Flow Rate 4 4 Fraction of Inspired Oxygen 12/05/24 08:00 12/05/24 08:05 12/05/24 08:11 Temperature 98.8 F Pulse Rate 92 87 83 Respiratory Rate 22 H Blood Pressure 126/98 H Pulse Oximetry 97 Oxygen Delivery Oxygen Flow Rate Fraction of Inspired Oxygen 12/05/24 08:44 12/05/24 10:00 12/05/24 11:07 Temperature Pulse Rate 93 92 78 Respiratory Rate 18 Blood Pressure Pulse Oximetry Oxygen Delivery Oxygen Flow Rate Fraction of Inspired Oxygen 12/05/24 11:15 12/05/24 12:00 12/05/24 12:00 Temperature 97.9 F Pulse Rate 79 80 Respiratory Rate 18 20 Blood Pressure 132/72 Pulse Oximetry 93 96 Oxygen Delivery High Flow Nasal Cannula Oxygen Flow Rate 4 Fraction of Inspired Oxygen 12/05/24 12:00 Temperature Pulse Rate 82 Respiratory Rate Blood Pressure Pulse Oximetry Oxygen Delivery Oxygen Flow Rate Fraction of Inspired Oxygen Intake/Output Intake/Output: Intake & Output 12/02/24 12/03/24 12/04/24 12/05/24 23:59 23:59 23:59 23:59 Intake Total 1999 3563.4 1672.5 1240 Output Total 3200 4250 2850 Balance 1999 363.4 -2037.5 -1610 Meds/Results Medications: Active Medications Generic Name Dose Route Start Last Admin Trade Name Freq PRN Reason Stop Dose Admin Acetaminophen 650 mg 12/03/24 14:07 12/03/24 14:21 Acetaminophen 325 Mg Tablet PO 650 mg Q4H PRN Administration Headache Albuterol 2 puff 12/02/24 23:29 Albuterol Sulfate (*Sp) Aerosol 1 Puff INHALATION Q6HRT PRN shortness of breath or wheezing Albuterol 2.5 mg 12/04/24 12:00 12/05/24 11:06 Albuterol Sulfate Neb 2.5 Mg/3 Ml Inh INHALATION 2.5 mg Q4HRT BANG Administration Atorvastatin Calcium 40 mg 12/03/24 09:00 12/05/24 08:43 Atorvastatin 40 Mg Tablet PO 40 mg DAILY BANG Administration Diltiazem HCl 120 mg 12/04/24 09:00 12/05/24 08:43 Diltiazem Hcl Cd 120 Mg Cap.24hr PO 120 mg QAM BANG Administration Fentanyl Citrate 25 mcg 12/03/24 10:17 12/03/24 12:35 Fentanyl Citrate Inj (*Crx) 100 Mcg/2 Ml Vial IV PUSH 25 mcg Q2M PRN Administration Pain Fluticasone Propionate 1 spray 12/03/24 09:00 12/05/24 08:43 Fluticasone Propionate 0.05% Na Spr 16 Gm Btl (*Bkc) NASAL 1 spray DAILY BANG Administration Ceftriaxone Sodium 1 gm in 50 mls @ 100 mls/hr 12/03/24 22:00 12/04/24 21:40 Rocephin 1 Gm/Ns 50 Ml IVPB Infused Q24H BANG Infusion Metoprolol Tartrate 25 mg 12/05/24 09:00 12/05/24 08:44 Metoprolol Tartrate 25 Mg Tablet PO 25 mg Q12HR BANG Administration Ondansetron HCl 4 mg 12/03/24 06:23 12/03/24 06:33 Ondansetron Hcl Odt 4 Mg Tablet PO 4 mg Q6H PRN Administration Nausea And Vomiting Ondansetron HCl 4 mg 12/03/24 10:17 Ondansetron Inj 4 Mg/2 Ml Vial IV PUSH ONCE PRN Nausea Perflutren Lipid Microsphere 0 ml 12/03/24 08:47 Perflutren Lipid Microspheres 1.5 Ml Vial Diluted To 10 Ml Total Volume IV PUSH 12/06/24 08:47 ONCE PRN adequate visualization Protocol Perflutren Lipid Microsphere 0 ml 12/04/24 14:37 Perflutren Lipid Microspheres 1.5 Ml Vial Diluted To 10 Ml Total Volume IV PUSH 12/07/24 14:37 ONCE PRN adequate visualization Protocol Fluticasone/Salmeterol 2 puff 12/03/24 08:00 12/05/24 07:53 Fluticasone/Salmeterol 115-21 Mcg Inhaler 1 Puff INHALATION 2 puff Q12HRT BANG Administration Sodium Bicarbonate 650 mg 12/04/24 11:55 12/05/24 08:44 Sodium Bicarbonate Tab 650 Mg Tablet PO 12/06/24 17:01 650 mg BID BANG Administration Sodium Zirconium Cyclosilicate 10 gm 12/04/24 10:00 12/04/24 17:07 Sodium Zirconium Cyclosilicate 10 Gm Powd.Pack PO 10 gm BID@1000,1800 BANG Administration Tamsulosin HCl 0.4 mg 12/03/24 09:00 12/05/24 08:43 Tamsulosin Hcl 0.4 Mg Capsule PO 0.4 mg DAILY BANG Administration Radiology Results: ITS Impressions Abdomen/Pelvis CT 12/02/24 18:41 IMPRESSION: Bilateral hydroureteronephrosis without an obstructing calculus identified. Abnormal mural thickening within the posterior wall of the bladder for which a malignancy is suspected and for which direct visualization is recommended. Chest X-Ray 12/04/24 13:32 Impression: Diffuse pulmonary disease, suggestive of diffuse pulmonary edema and/or chronic interstitial disease. Correlate clinically. Minimal pleural effusions. Labs Labs: Laboratory Results - last 24 hr 12/04/24 12/04/24 12/04/24 04:23 13:06 16:43 WBC 11.6 H RBC 3.48 L Hgb 11.8 L Hct 35.6 L MCV 102.3 H MCH 33.9 MCHC 33.1 RDW 14.1 Plt Count 170 MPV 11.8 H Immature Gran % (Auto) 0.6 H Neut % (Auto) 85.7 H Lymph % (Auto) 4.2 L [place] % (Auto) 9.5 H Eos % (Auto) 0.0 Baso % (Auto) 0.0 L Lymph # (Auto) 0.48 L [place] # (Auto) 1.1 H Eos # (Auto) 0.0 Baso # (Auto) 0.0 Abs Immat Gran (auto) 0.07 H Absolute Neuts (auto) 9.9 H Absolute Nucleated RBC 0.000 Band Neutrophils % Not Reportable Nucleated RBC % 0.0 Platelet Estimate Adequate Large Platelets Present Giant Platelets Present Schistocytes None seen Sodium Potassium Chloride Carbon Dioxide Anion Gap BUN Creatinine Estim Creat Clear Calc Estimated GFR Glucose Calcium Phosphorus Albumin Hep B Core Total Ab Non-reactive SARS-CoV-2 RNA (RT-PCR) Negative 12/05/24 04:11 WBC RBC Hgb Hct MCV MCH MCHC RDW Plt Count MPV Immature Gran % (Auto) Neut % (Auto) Lymph % (Auto) [place] % (Auto) Eos % (Auto) Baso % (Auto) Lymph # (Auto) [place] # (Auto) Eos # (Auto) Baso # (Auto) Abs Immat Gran (auto) Absolute Neuts (auto) Absolute Nucleated RBC Band Neutrophils % Nucleated RBC % Platelet Estimate Large Platelets Giant Platelets Schistocytes Sodium 139 Potassium 4.1 Chloride 111 H Carbon Dioxide 20 L Anion Gap 8 BUN 46 H D Creatinine 3.23 H Estim Creat Clear Calc 23 Estimated GFR 19 L Glucose 112 H Calcium 8.0 L Phosphorus 4.0 Albumin 3.0 L Hep B Core Total Ab SARS-CoV-2 RNA (RT-PCR) Hospitalist MIPS Advance Care Plan I have confirmed that the patient's Advanced Care Plan is present, code status is documented, or surrogate decision maker is listed in patient medical record.: Yes Medication Reconciliation I have utilized all available resources to obtain, update and review the patients current medications (includes all prescriptions, OTC, herbals, cannabis, and nutritional supplements).: Yes
[2024-12-05 17:05] LABS: Basophils Percent Auto 0.1 % (0.2-1.2); Eosinophils Percent Auto 0.1 % (0-4.4); Hematocrit 37.1 % (42.0-52.0); Hemoglobin 12.1 g/dL (14.0-18.0); Immature Granulocyte Absolute 0.07 K/mm3 (0.00-0.031); Immature Granulocyte Percent A 0.7 % (0-0.5); Lymphocytes Absolute Auto 0.99 K/mm3 (0.9-3.2); Lymphocytes Percent Auto 9.2 % (18.3-44.2); Mean Corpuscular HGB Conc 32.6 g/dl (32-36); Mean Corpuscular Hemoglobin 34.2 pg (26-34); Mean Corpuscular Volume 104.8 fl (80-100); Monocytes Absolute Auto 1.4 K/mm3 (0.1-0.6); Monocytes Percent Auto 12.9 % (2.6-8.5); Neutrophils Absolute Auto 8.3 K/mm3 (1.3-6.7); Platelet Count Result 177 k/mm3 (150-375); Red Blood Count 3.54 M/mm3 (4.6-6.20); Red Cell Distribution Width 14.1 % (11.5-14.5); White Blood Count 10.7 K/mm3 (4.5-10.0)
[2024-12-06] VITALS (22 sets, daily range): BP systolic 123–148; BP diastolic 59–80; PULSE 66–96; RESP 12–20; TEMP 36.2–37.1; O2SAT 93–97
[2024-12-06] MEDS: ALBUTEROL SULFATE NEB 2.5 MG/3 ML INH INHALATION ×5 (04:06→19:57)
--- NOTE | 2024-12-06 04:06 | PCRCNOTE ---
Patients 4am treatment was omitted as he was sleeping w/o breathing issues. He has been CTA all night.
[2024-12-06 04:23] LABS: Hematocrit 34.7 % (42.0-52.0); Hemoglobin 11.2 g/dL (14.0-18.0); Mean Corpuscular HGB Conc 32.3 g/dl (32-36); Mean Corpuscular Hemoglobin 33.9 pg (26-34); Mean Corpuscular Volume 105.2 fl (80-100); Mean Platelet Volume 11.8 fl (7.4-10.4); Platelet Count Result 167 k/mm3 (150-375); Red Cell Distribution Width 14.4 % (11.5-14.5); White Blood Count 10.2 K/mm3 (4.5-10.0)
[2024-12-06 05:48] LABS: Alanine Aminotransferase 27 U/L (6-50); Alkaline Phosphatase 69 U/L (38-126); Anion Gap 7 mmol/L (4-12); Aspartate Amino Transferase 28 U/L (17-59); Bilirubin,Total 0.3 mg/dL (0.2-1.3); Blood Urea Nitrogen 34 mg/dL (9-20); Calcium 8.2 mg/dL (8.4-10.2); Carbon Dioxide 22 mmol/L (22-30); Chloride 111 mmol/L (98-107); Estimated CRCL calculation 32 ml/min; Estimated Glomerular Filt Rate 29; Glucose 95 mg/dL (65-110); Sodium 140 mmol/L (137-145)
[2024-12-06] MEDS: FLUTICASONE/SALMETEROL 115-21 MCG INHALER 1 PUFF 2 PUFF INHALATION ×2 (07:36→19:57)
[2024-12-06] MEDS: ATORVASTATIN 40 MG TABLET PO (08:43)
[2024-12-06] MEDS: FLUTICASONE PROPIONATE 0.05% NA SPR 16 GM BTL (*BKC) 1 SPRAY NASAL (08:43)
[2024-12-06] MEDS: dilTIAZem HCL CD 120 MG CAP.24HR PO (08:43)
[2024-12-06] MEDS: SODIUM BICARBONATE TAB 650 MG TABLET PO ×2 (08:43→17:01)
[2024-12-06] MEDS: METOPROLOL TARTRATE 25 MG TABLET PO ×2 (08:43→20:41)
[2024-12-06] MEDS: TAMSULOSIN HCL 0.4 MG CAPSULE PO (08:43)
--- NOTE | 2024-12-06 10:45 | PM.IMPN ---
Progress Note: A&P Assessment and Plan (1) Atrial fibrillation with RVR: Code(s): I48.91 - Unspecified atrial fibrillation Status: Acute Assessment and Plan: Continue Metoprolol Tartrate 25 mg PO q 6hr Diltiazem 60mg PO q hr (2) Hydroureteronephrosis: Code(s): N13.30 - Unspecified hydronephrosis Status: Acute Assessment and Plan: Urology was consulted and he underwent Cystoscopy, right retrograde pyelography and right ureteral stent placement. Attempted left ureteral stent placement. TURBT (large, 5-6cm) (3) Acute hyperkalemia: Code(s): E87.5 - Hyperkalemia Status: Acute Assessment and Plan: Given Lokelma and Albuterol (4) Acute renal failure: Qualifiers: Acute renal failure type: unspecified Qualified Code(s): N17.9 - Acute kidney failure, unspecified Code(s): N17.9 - Acute kidney failure, unspecified Status: Acute Assessment and Plan: Nephrology following Will trend Cr Possible post renal Urology was consulted and he underwent Cystoscopy, right retrograde pyelography and right ureteral stent placement. Attempted left ureteral stent placement. TURBT (large, 5-6cm) (5) Bladder wall thickening: Code(s): N32.89 - Other specified disorders of bladder Status: Acute Assessment and Plan: ass above (6) Acute UTI: Code(s): N39.0 - Urinary tract infection, site not specified Status: Acute Assessment and Plan: Continue Ceftriaxone (7) Bladder cancer: Code(s): C67.9 - Malignant neoplasm of bladder, unspecified Status: Acute Assessment and Plan: Biopsy shows Invasive Urothelial Carcinoma,high grade As per urology possibly will do as OP: neoadjuvant chemotherapy followed by cystectomy with urinary diversion Oncology on board Subjective Date/time seen: 12/06/24 10:45 Interval history: Patient is currently doing well. Cr doing down well. Possibly discharged tomorrow after discussing with nephrology.Biopsy shows Invasive Urothelial Carcinoma,high grade Review of Systems Review of Systems: All systems reviewed & are unremarkable except as noted in HPI and below (HPI) Exam Narrative: GENERAL APPEARANCE: well developed well nourished male in no acute distress HEENT: normocephalic, atraumatic, normal conjunctiva and sclera, nares patient NECK: no lymphadenopathy, thyromegaly, or JVD MOUTH: normal lips, teeth, and gums CARDIOVASCULAR: RRR, normal S1 and S2, no rub RESPIRATORY: clear to auscultation bilaterally ABDOMEN: soft, nontender, nondistended, positive bowel sounds present EXTREMITIES: no evidence of cyanosis, clubbing, trace edema NEUROLOGICAL: alert and oriented x 3; CN II - XII intact bilaterally; no focal deficits noted Const: General: comfortable and no acute distress Orientation/consciousness: oriented to person, oriented to place and oriented to time Other: A&O x3 HENMT: Mouth: Yes dry mucous membranes Eyes: Pupils: Equal, round and reactive pupils present Neck: Neck: supple Resp: Effort & Inspection: normal respiratory effort Auscultation: clear to auscultation bilaterally Cardio: Rate: regular rate Rhythm: regular rhythm Heart sounds: no murmurs Peripheral pulses: dorsalis pedis present GI: Inspection: non-distended Auscultation: normal bowel sounds : General: Yes bladder normal to palpation Urinary Catheter: Urinary Catheter: patent and draining and urine cloudy Neuro: General: oriented to person, oriented to place and oriented to time Cranial nerves: Yes Equal, round and reactive pupils present Motor exam (neuro): 5/5 motor strength present throughout Sensory Exam: normal sensation Extrem: General: edema (Trivial pitting edema at the bilateral lower extremities below the knees) Right lower extremity: no edema Left lower extremity: no edema Psych: Mental Status: mental status grossly normal Objective Data Vital Signs Vital Signs: Vital Signs - 24 hr 12/05/24 11:07 12/05/24 11:15 12/05/24 12:00 Temperature Pulse Rate 78 79 Respiratory Rate 18 18 Blood Pressure Pulse Oximetry 93 Oxygen Delivery High Flow Nasal Cannula Oxygen Flow Rate 4 12/05/24 12:00 12/05/24 12:00 12/05/24 14:00 Temperature 97.9 F Pulse Rate 80 82 91 Respiratory Rate 20 Blood Pressure 132/72 Pulse Oximetry 96 Oxygen Delivery Oxygen Flow Rate 12/05/24 15:37 12/05/24 15:45 12/05/24 16:00 Temperature Pulse Rate 65 67 74 Respiratory Rate 18 18 Blood Pressure Pulse Oximetry Oxygen Delivery Oxygen Flow Rate 12/05/24 16:00 12/05/24 16:00 12/05/24 18:00 Temperature 97.8 F Pulse Rate 71 72 Respiratory Rate 16 Blood Pressure 123/66 Pulse Oximetry 100 95 Oxygen Delivery High Flow Nasal Cannula Oxygen Flow Rate 4 12/05/24 19:46 12/05/24 20:00 12/05/24 20:00 Temperature 97.8 F Pulse Rate 88 88 74 Respiratory Rate 18 18 18 Blood Pressure 100/71 Pulse Oximetry 95 Oxygen Delivery Oxygen Flow Rate 12/05/24 20:00 12/05/24 20:00 12/05/24 20:10 Temperature Pulse Rate 138 H 138 H Respiratory Rate 18 Blood Pressure Pulse Oximetry 94 94 Oxygen Delivery High Flow Nasal Cannula High Flow Nasal Cannula Oxygen Flow Rate 4 4 12/05/24 21:02 12/05/24 21:46 12/05/24 23:24 Temperature Pulse Rate 138 H 82 88 Respiratory Rate 18 Blood Pressure Pulse Oximetry Oxygen Delivery Oxygen Flow Rate 12/05/24 23:35 12/06/24 00:00 12/06/24 00:00 Temperature 97.8 F Pulse Rate 88 91 78 Respiratory Rate 18 18 18 Blood Pressure 123/70 Pulse Oximetry 95 95 Oxygen Delivery High Flow Nasal Cannula Oxygen Flow Rate 4 12/06/24 00:00 12/06/24 02:00 12/06/24 04:00 Temperature Pulse Rate 78 78 66 Respiratory Rate 18 Blood Pressure Pulse Oximetry 95 Oxygen Delivery High Flow Nasal Cannula Oxygen Flow Rate 4 12/06/24 04:00 12/06/24 04:00 12/06/24 06:00 Temperature 97.9 F Pulse Rate 66 77 76 Respiratory Rate 20 Blood Pressure 148/80 H Pulse Oximetry 97 Oxygen Delivery Oxygen Flow Rate 12/06/24 07:37 12/06/24 07:37 12/06/24 07:46 Temperature Pulse Rate 73 84 Respiratory Rate 18 18 Blood Pressure Pulse Oximetry 97 Oxygen Delivery High Flow Nasal Cannula Oxygen Flow Rate 4 12/06/24 07:48 12/06/24 08:00 12/06/24 08:00 Temperature 97.5 F L Pulse Rate 72 91 Respiratory Rate 16 Blood Pressure 125/78 Pulse Oximetry 97 97 Oxygen Delivery High Flow Therapy with Na Oxygen Flow Rate 2 12/06/24 08:16 12/06/24 08:43 Temperature Pulse Rate 96 Respiratory Rate Blood Pressure Pulse Oximetry 93 Oxygen Delivery High Flow Nasal Cannula Oxygen Flow Rate 2 Intake/Output Intake/Output: Intake & Output 12/03/24 12/04/24 12/05/24 12/06/24 23:59 23:59 23:59 23:59 Intake Total 3563.4 1672.5 2020 840 Output Total 3200 4250 3350 3150 Balance 363.4 -2577.5 -1641 -1756 Meds/Results Medications: Active Medications Generic Name Dose Route Start Last Admin Trade Name Freq PRN Reason Stop Dose Admin Acetaminophen 650 mg 12/03/24 14:07 12/03/24 14:21 Acetaminophen 325 Mg Tablet PO 650 mg Q4H PRN Administration Headache Albuterol 2 puff 12/02/24 23:29 Albuterol Sulfate (*Sp) Aerosol 1 Puff INHALATION Q6HRT PRN shortness of breath or wheezing Albuterol 2.5 mg 12/04/24 12:00 12/06/24 07:36 Albuterol Sulfate Neb 2.5 Mg/3 Ml Inh INHALATION 2.5 mg Q4HRT BANG Administration Atorvastatin Calcium 40 mg 12/03/24 09:00 12/06/24 08:43 Atorvastatin 40 Mg Tablet PO 40 mg DAILY BANG Administration Diltiazem HCl 120 mg 12/04/24 09:00 12/06/24 08:43 Diltiazem Hcl Cd 120 Mg Cap.24hr PO 120 mg QAM BANG Administration Fentanyl Citrate 25 mcg 12/03/24 10:17 12/03/24 12:35 Fentanyl Citrate Inj (*Crx) 100 Mcg/2 Ml Vial IV PUSH 25 mcg Q2M PRN Administration Pain Fluticasone Propionate 1 spray 12/03/24 09:00 12/06/24 08:43 Fluticasone Propionate 0.05% Na Spr 16 Gm Btl (*Bkc) NASAL 1 spray DAILY BANG Administration Ceftriaxone Sodium 1 gm in 50 mls @ 100 mls/hr 12/03/24 22:00 12/05/24 21:35 Rocephin 1 Gm/Ns 50 Ml IVPB Infused Q24H BANG Infusion Metoprolol Tartrate 25 mg 12/05/24 09:00 12/06/24 08:43 Metoprolol Tartrate 25 Mg Tablet PO 25 mg Q12HR BANG Administration Ondansetron HCl 4 mg 12/03/24 06:23 12/03/24 06:33 Ondansetron Hcl Odt 4 Mg Tablet PO 4 mg Q6H PRN Administration Nausea And Vomiting Ondansetron HCl 4 mg 12/03/24 10:17 Ondansetron Inj 4 Mg/2 Ml Vial IV PUSH ONCE PRN Nausea Perflutren Lipid Microsphere 0 ml 12/04/24 14:37 Perflutren Lipid Microspheres 1.5 Ml Vial Diluted To 10 Ml Total Volume IV PUSH 12/07/24 14:37 ONCE PRN adequate visualization Protocol Fluticasone/Salmeterol 2 puff 12/03/24 08:00 12/06/24 07:36 Fluticasone/Salmeterol 115-21 Mcg Inhaler 1 Puff INHALATION 2 puff Q12HRT BANG Administration Sodium Bicarbonate 650 mg 12/04/24 11:55 12/06/24 08:43 Sodium Bicarbonate Tab 650 Mg Tablet PO 12/06/24 17:01 650 mg BID BANG Administration Sodium Zirconium Cyclosilicate 10 gm 12/04/24 10:00 12/04/24 17:07 Sodium Zirconium Cyclosilicate 10 Gm Powd.Pack PO 10 gm BID@1000,1800 BANG Administration Tamsulosin HCl 0.4 mg 12/03/24 09:00 12/06/24 08:43 Tamsulosin Hcl 0.4 Mg Capsule PO 0.4 mg DAILY BANG Administration Radiology Results: ITS Impressions Abdomen/Pelvis CT 12/02/24 18:41 IMPRESSION: Bilateral hydroureteronephrosis without an obstructing calculus identified. Abnormal mural thickening within the posterior wall of the bladder for which a malignancy is suspected and for which direct visualization is recommended. Chest X-Ray 12/04/24 13:32 Impression: Diffuse pulmonary disease, suggestive of diffuse pulmonary edema and/or chronic interstitial disease. Correlate clinically. Minimal pleural effusions. Labs Labs: Laboratory Results - last 24 hr 12/05/24 12/06/24 16:50 03:42 WBC 10.7 H 10.2 H RBC 3.54 L 3.30 L Hgb 12.1 L 11.2 L Hct 37.1 L 34.7 L MCV 104.8 H 105.2 H MCH 34.2 H 33.9 MCHC 32.6 32.3 RDW 14.1 14.4 Plt Count 177 167 MPV 12.0 H 11.8 H Immature Gran % (Auto) 0.7 H Neut % (Auto) 77.0 H Lymph % (Auto) 9.2 L [place] % (Auto) 12.9 H Eos % (Auto) 0.1 Baso % (Auto) 0.1 L Lymph # (Auto) 0.99 [place] # (Auto) 1.4 H Eos # (Auto) 0.0 Baso # (Auto) 0.0 Abs Immat Gran (auto) 0.07 H Absolute Neuts (auto) 8.3 H Absolute Nucleated RBC 0.000 Nucleated RBC % 0.0 Sodium 140 Potassium 4.0 Chloride 111 H Carbon Dioxide 22 Anion Gap 7 BUN 34 H D Creatinine 2.30 H Estim Creat Clear Calc 32 Estimated GFR 29 L Glucose 95 Calcium 8.2 L Phosphorus 3.0 Total Bilirubin 0.3 AST 28 ALT 27 Alkaline Phosphatase 69 Total Protein 6.0 L Albumin 3.0 L Hospitalist MIPS Advance Care Plan I have confirmed that the patient's Advanced Care Plan is present, code status is documented, or surrogate decision maker is listed in patient medical record.: Yes Medication Reconciliation I have utilized all available resources to obtain, update and review the patients current medications (includes all prescriptions, OTC, herbals, cannabis, and nutritional supplements).: Yes
--- NOTE | 2024-12-06 11:22 | P.PNNP_ITS ---
Progress Note: A&P Assessment and Plan (1) Acute kidney injury: Code(s): N17.9 - Acute kidney failure, unspecified Status: Acute Assessment and Plan: * presumed to be secondary to obstructive uropathy * right ureteral stent placed. * Left ureteral orifice was unable to be found. * Creatinine is improving rapidly even with just 1 kidney managed. * creatinine down to 2.3 * Eventually other kidney will have to be dealt with. (2) Hydroureteronephrosis: Code(s): N13.30 - Unspecified hydronephrosis Status: Acute Assessment and Plan: * bilateral and as noted on admission CT of abdomen/pelvis * Urology following: * s/p cystoscopy, right retrograde pyelography and right ureteral stent placement and TURBT * attempted left ureteral stent placement (but unable to locate left ureteral orifice) * will likely need placement of a left percutaneous nephrostomy tube with eventual internalization of ureteral stent (3) Hyperkalemia: Code(s): E87.5 - Hyperkalemia Status: Acute Assessment and Plan: * resolved. (4) Metabolic acidosis: Code(s): E87.20 - Acidosis, unspecified Status: Acute Assessment and Plan: * resolved. (5) Hypoxia: Code(s): R09.02 - Hypoxemia Status: Acute Assessment and Plan: * as noted since afternoon of 12/03 * now requiring supplemental oxygen * CXR with evidence of pleural effusions and congestion * however, previous imaging (CT of chest in 2023) notes evidence of emphysema as wel... * hold further IVFs * one time dose of IV bumex today (this will also help with #3) * hopefully post-obstructive diureses will help as well * Echo (on 12/03) noted: * left ventricular systolic function is normal, estimated at 55-60% * left ventricular diastolic function is normal * mitral valve has mildly calcified annulus * mild mitral valve regurgitation * mild pulmonary hypertension, estimated pulmonary arterial systolic pressure is 42 mmHg * breathing okay on only 2 L oxygen now. * edema is better. * I/Os negative every day so far. on no diuretics (6) Atrial fibrillation with RVR: Code(s): I48.91 - Unspecified atrial fibrillation Status: Acute Assessment and Plan: * heart rate good at 92 today * on diltiazem and metoprolol * Cardiology signed off * I am assuming he will need to be back on anticoagulants once all of the above is worked out (7) Acute UTI: Code(s): N39.0 - Urinary tract infection, site not specified Status: Acute Assessment and Plan: * admission UA suggestive * however, urine culture was not done * on ceftriaxone (8) Mass of bladder: Code(s): N32.89 - Other specified disorders of bladder Status: Acute Assessment and Plan: * suspect malignancy (urothelial carcinoma +/- prostate cancer) * s/p TURBT * pathology pending * Urology and Oncology following Subjective Date/time seen: 12/06/24 11:22 Interval history: Patient is feeling okay today. Eating well. No swelling breathing is fine Exam Narrative: General: elderly but WD/WN male in NAD Neuro: a and O x3 Psyche: not anxious or depressed Extremities: no cyanosis or clubbing; no edema Skin: warm and dry Objective Data Vital Signs Vital Signs: Vital Signs - 24 hr 12/05/24 12:00 12/05/24 12:00 12/05/24 12:00 Temperature 97.9 F Pulse Rate 80 82 Respiratory Rate 20 Blood Pressure 132/72 Pulse Oximetry 93 96 Oxygen Delivery High Flow Nasal Cannula Oxygen Flow Rate 4 12/05/24 14:00 12/05/24 15:37 12/05/24 15:45 Temperature Pulse Rate 91 65 67 Respiratory Rate 18 18 Blood Pressure Pulse Oximetry Oxygen Delivery Oxygen Flow Rate 12/05/24 16:00 12/05/24 16:00 12/05/24 16:00 Temperature 97.8 F Pulse Rate 74 71 Respiratory Rate 16 Blood Pressure 123/66 Pulse Oximetry 100 95 Oxygen Delivery High Flow Nasal Cannula Oxygen Flow Rate 4 12/05/24 18:00 12/05/24 19:46 12/05/24 20:00 Temperature Pulse Rate 72 88 88 Respiratory Rate 18 18 Blood Pressure Pulse Oximetry Oxygen Delivery Oxygen Flow Rate 12/05/24 20:00 12/05/24 20:00 12/05/24 20:00 Temperature 97.8 F Pulse Rate 74 138 H 138 H Respiratory Rate 18 18 Blood Pressure 100/71 Pulse Oximetry 95 94 Oxygen Delivery High Flow Nasal Cannula Oxygen Flow Rate 4 12/05/24 20:10 12/05/24 21:02 12/05/24 21:46 Temperature Pulse Rate 138 H 82 Respiratory Rate Blood Pressure Pulse Oximetry 94 Oxygen Delivery High Flow Nasal Cannula Oxygen Flow Rate 4 12/05/24 23:24 12/05/24 23:35 12/06/24 00:00 Temperature 97.8 F Pulse Rate 88 88 91 Respiratory Rate 18 18 18 Blood Pressure 123/70 Pulse Oximetry 95 Oxygen Delivery Oxygen Flow Rate 12/06/24 00:00 12/06/24 00:00 12/06/24 02:00 Temperature Pulse Rate 78 78 78 Respiratory Rate 18 Blood Pressure Pulse Oximetry 95 Oxygen Delivery High Flow Nasal Cannula Oxygen Flow Rate 4 12/06/24 04:00 12/06/24 04:00 12/06/24 04:00 Temperature 97.9 F Pulse Rate 66 66 77 Respiratory Rate 18 20 Blood Pressure 148/80 H Pulse Oximetry 95 97 Oxygen Delivery High Flow Nasal Cannula Oxygen Flow Rate 4 12/06/24 06:00 12/06/24 07:37 12/06/24 07:37 Temperature Pulse Rate 76 73 Respiratory Rate 18 Blood Pressure Pulse Oximetry 97 Oxygen Delivery High Flow Nasal Cannula Oxygen Flow Rate 4 12/06/24 07:46 12/06/24 07:48 12/06/24 08:00 Temperature 97.5 F L Pulse Rate 84 72 Respiratory Rate 18 16 Blood Pressure 125/78 Pulse Oximetry 97 97 Oxygen Delivery High Flow Therapy with Na Oxygen Flow Rate 2 12/06/24 08:00 12/06/24 08:16 12/06/24 08:43 Temperature Pulse Rate 91 96 Respiratory Rate Blood Pressure Pulse Oximetry 93 Oxygen Delivery High Flow Nasal Cannula Oxygen Flow Rate 2 12/06/24 10:00 Temperature Pulse Rate 94 Respiratory Rate Blood Pressure Pulse Oximetry Oxygen Delivery Oxygen Flow Rate Intake/Output Intake/Output: Intake & Output 12/03/24 12/04/24 12/05/24 12/06/24 23:59 23:59 23:59 23:59 Intake Total 3563.4 1672.5 2020 840 Output Total 3200 4250 3350 3150 Balance 833.4 -7567.5 -5088 -2135 Meds/Results Medications: Active Medications Generic Name Dose Route Start Last Admin Trade Name Freq PRN Reason Stop Dose Admin Acetaminophen 650 mg 12/03/24 14:07 12/03/24 14:21 Acetaminophen 325 Mg Tablet PO 650 mg Q4H PRN Administration Headache Albuterol 2 puff 12/02/24 23:29 Albuterol Sulfate (*Sp) Aerosol 1 Puff INHALATION Q6HRT PRN shortness of breath or wheezing Albuterol 2.5 mg 12/04/24 12:00 12/06/24 11:19 Albuterol Sulfate Neb 2.5 Mg/3 Ml Inh INHALATION 2.5 mg Q4HRT BANG Administration Atorvastatin Calcium 40 mg 12/03/24 09:00 12/06/24 08:43 Atorvastatin 40 Mg Tablet PO 40 mg DAILY BANG Administration Diltiazem HCl 120 mg 12/04/24 09:00 12/06/24 08:43 Diltiazem Hcl Cd 120 Mg Cap.24hr PO 120 mg QAM BANG Administration Fentanyl Citrate 25 mcg 12/03/24 10:17 12/03/24 12:35 Fentanyl Citrate Inj (*Crx) 100 Mcg/2 Ml Vial IV PUSH 25 mcg Q2M PRN Administration Pain Fluticasone Propionate 1 spray 12/03/24 09:00 12/06/24 08:43 Fluticasone Propionate 0.05% Na Spr 16 Gm Btl (*Bkc) NASAL 1 spray DAILY BANG Administration Ceftriaxone Sodium 1 gm in 50 mls @ 100 mls/hr 12/03/24 22:00 12/05/24 21:35 Rocephin 1 Gm/Ns 50 Ml IVPB Infused Q24H BANG Infusion Metoprolol Tartrate 25 mg 12/05/24 09:00 12/06/24 08:43 Metoprolol Tartrate 25 Mg Tablet PO 25 mg Q12HR BANG Administration Ondansetron HCl 4 mg 12/03/24 06:23 12/03/24 06:33 Ondansetron Hcl Odt 4 Mg Tablet PO 4 mg Q6H PRN Administration Nausea And Vomiting Ondansetron HCl 4 mg 12/03/24 10:17 Ondansetron Inj 4 Mg/2 Ml Vial IV PUSH ONCE PRN Nausea Perflutren Lipid Microsphere 0 ml 12/04/24 14:37 Perflutren Lipid Microspheres 1.5 Ml Vial Diluted To 10 Ml Total Volume IV PUSH 12/07/24 14:37 ONCE PRN adequate visualization Protocol Fluticasone/Salmeterol 2 puff 12/03/24 08:00 12/06/24 07:36 Fluticasone/Salmeterol 115-21 Mcg Inhaler 1 Puff INHALATION 2 puff Q12HRT BANG Administration Sodium Bicarbonate 650 mg 12/04/24 11:55 12/06/24 08:43 Sodium Bicarbonate Tab 650 Mg Tablet PO 12/06/24 17:01 650 mg BID BANG Administration Sodium Zirconium Cyclosilicate 10 gm 12/04/24 10:00 12/04/24 17:07 Sodium Zirconium Cyclosilicate 10 Gm Powd.Pack PO 10 gm BID@1000,1800 BANG Administration Tamsulosin HCl 0.4 mg 12/03/24 09:00 12/06/24 08:43 Tamsulosin Hcl 0.4 Mg Capsule PO 0.4 mg DAILY BANG Administration Radiology Results: ITS Impressions Abdomen/Pelvis CT 12/02/24 18:41 IMPRESSION: Bilateral hydroureteronephrosis without an obstructing calculus identified. Abnormal mural thickening within the posterior wall of the bladder for which a malignancy is suspected and for which direct visualization is recommended. Chest X-Ray 12/04/24 13:32 Impression: Diffuse pulmonary disease, suggestive of diffuse pulmonary edema and/or chronic interstitial disease. Correlate clinically. Minimal pleural effusions. Labs Labs: Laboratory Results - last 24 hr 12/05/24 12/06/24 16:50 03:42 WBC 10.7 H 10.2 H RBC 3.54 L 3.30 L Hgb 12.1 L 11.2 L Hct 37.1 L 34.7 L MCV 104.8 H 105.2 H MCH 34.2 H 33.9 MCHC 32.6 32.3 RDW 14.1 14.4 Plt Count 177 167 MPV 12.0 H 11.8 H Immature Gran % (Auto) 0.7 H Neut % (Auto) 77.0 H Lymph % (Auto) 9.2 L [place] % (Auto) 12.9 H Eos % (Auto) 0.1 Baso % (Auto) 0.1 L Lymph # (Auto) 0.99 [place] # (Auto) 1.4 H Eos # (Auto) 0.0 Baso # (Auto) 0.0 Abs Immat Gran (auto) 0.07 H Absolute Neuts (auto) 8.3 H Absolute Nucleated RBC 0.000 Nucleated RBC % 0.0 Sodium 140 Potassium 4.0 Chloride 111 H Carbon Dioxide 22 Anion Gap 7 BUN 34 H D Creatinine 2.30 H Estim Creat Clear Calc 32 Estimated GFR 29 L Glucose 95 Calcium 8.2 L Phosphorus 3.0 Total Bilirubin 0.3 AST 28 ALT 27 Alkaline Phosphatase 69 Total Protein 6.0 L Albumin 3.0 L
--- NOTE | 2024-12-06 13:14 | P.PNONC_ITS ---
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 Further workup in the ER with CBC and CMP showed a creatinine of 12.7 and patient in acute renal failure. A CT scan of abdomen and pelvis without contrast was obtained which showed bilateral hydroureteronephrosis without stone. There was significant perinephric inflammation. There was mural wall thickening of the posterior wall of the bladder concerning for bladder cancer. Patient was seen by urology team and underwent cystoscopy on 12/03/2024. The cystoscopy showed very large dense solid neoplasm arising at the bladder neck and extending into the trigone more on the left than the right. The large section of mass was resected from the left hemanth trigone in attempt to find the left ureteral orifice but urologist was not able to identify left ureteral orifice. Right ureteral orifice was identified and a stent was placed. About 5-6 cm of the mass was resected via TURBT. Pathology is reported and is consistent with high-grade urothelial cancer with muscle invasion. Patient will need a appropriate staging scan but creatinine is too high to administer IV contrast for good CT of the chest abdomen and pelvis. If after proper staging scans there is no evidence of richard disease or metastasis then patient could be a candidate for bladder sparing treatment. This could include maximum TURBT by Urology followed by concurrent chemotherapy and radiation. Would like to get urology opinion on whether maximum target is possible and if yes then should he undergo the procedure. I believe the Urology team will come see patient tomorrow 12/07/2024 and we await the answers for treatment planning. At this time his creatinine has decreased from 12.7 at admission to 3.23 today after urological intervention with right ureteral stent. However he is no where closer to receive cisplatin chemotherapy due to renal dysfunction. However I am hopeful that he will normalize his creatinine as his last creatinine at baseline was 1.23 few years ago. I explained this to patient, his brother and his [id number] present at bedside on 12/04/2024. I will continue to follow along while patient is hospitalized here. At discharge he will be needing to see Dr. Friedman as an outpatient for suitable staging studies and treatment planning. He will also need to see radiation oncologist for their input as an outpatient. Subjective Date/time seen: 12/06/24 13:14 Interval history: Patient feels well with no overnight events. Review of Systems Review of Systems Patient reports that he feels much better than before. He is able to drain the urine through the catheter. He denies any fever, chills, night sweats. He denies any chest pain, shortness of breath, cough, hemoptysis. He denies any dizziness, lightheadedness. There has been difficulty passing bowels as well and patient said that he had to strain to pass the bowels. Rest of the 12 point review of system is negative Exam Narrative: General: Alert and oriented x3, ill-appearing male in no acute distress HEENT: EOMI, no scleral icterus, no gross abnormalities of the head noted CV: Regular rate and rhythm no murmur gallops or rubs RESP: Lungs clear to auscultation bilaterally Abdomen: Soft nontender nondistended bowel sounds present Neuro: No [employer] deficit noted Objective Data Vital Signs Vital Signs: Vital Signs - 24 hr 12/05/24 14:00 12/05/24 15:37 12/05/24 15:45 Temperature Pulse Rate 91 65 67 Respiratory Rate 18 18 Blood Pressure Pulse Oximetry Oxygen Delivery Oxygen Flow Rate 12/05/24 16:00 12/05/24 16:00 12/05/24 16:00 Temperature 36.6 C Pulse Rate 74 71 Respiratory Rate 16 Blood Pressure 123/66 Pulse Oximetry 100 95 Oxygen Delivery High Flow Nasal Cannula Oxygen Flow Rate 4 12/05/24 18:00 12/05/24 19:46 12/05/24 20:00 Temperature Pulse Rate 72 88 88 Respiratory Rate 18 18 Blood Pressure Pulse Oximetry Oxygen Delivery Oxygen Flow Rate 12/05/24 20:00 12/05/24 20:00 12/05/24 20:00 Temperature 36.6 C Pulse Rate 74 138 H 138 H Respiratory Rate 18 18 Blood Pressure 100/71 Pulse Oximetry 95 94 Oxygen Delivery High Flow Nasal Cannula Oxygen Flow Rate 4 12/05/24 20:10 12/05/24 21:02 12/05/24 21:46 Temperature Pulse Rate 138 H 82 Respiratory Rate Blood Pressure Pulse Oximetry 94 Oxygen Delivery High Flow Nasal Cannula Oxygen Flow Rate 4 12/05/24 23:24 12/05/24 23:35 12/06/24 00:00 Temperature 36.6 C Pulse Rate 88 88 91 Respiratory Rate 18 18 18 Blood Pressure 123/70 Pulse Oximetry 95 Oxygen Delivery Oxygen Flow Rate 12/06/24 00:00 12/06/24 00:00 12/06/24 02:00 Temperature Pulse Rate 78 78 78 Respiratory Rate 18 Blood Pressure Pulse Oximetry 95 Oxygen Delivery High Flow Nasal Cannula Oxygen Flow Rate 4 12/06/24 04:00 12/06/24 04:00 12/06/24 04:00 Temperature 36.6 C Pulse Rate 66 66 77 Respiratory Rate 18 20 Blood Pressure 148/80 H Pulse Oximetry 95 97 Oxygen Delivery High Flow Nasal Cannula Oxygen Flow Rate 4 12/06/24 06:00 12/06/24 07:37 12/06/24 07:37 Temperature Pulse Rate 76 73 Respiratory Rate 18 Blood Pressure Pulse Oximetry 97 Oxygen Delivery High Flow Nasal Cannula Oxygen Flow Rate 4 12/06/24 07:46 12/06/24 07:48 12/06/24 08:00 Temperature 36.4 C L Pulse Rate 84 72 Respiratory Rate 18 16 Blood Pressure 125/78 Pulse Oximetry 97 97 Oxygen Delivery High Flow Therapy with Na Oxygen Flow Rate 2 12/06/24 08:00 12/06/24 08:16 12/06/24 08:43 Temperature Pulse Rate 91 96 Respiratory Rate Blood Pressure Pulse Oximetry 93 Oxygen Delivery High Flow Nasal Cannula Oxygen Flow Rate 2 12/06/24 10:00 12/06/24 11:19 12/06/24 11:29 Temperature Pulse Rate 94 90 96 Respiratory Rate 18 18 Blood Pressure Pulse Oximetry Oxygen Delivery Oxygen Flow Rate Intake/Output Intake/Output: Intake & Output 12/03/24 12/04/24 12/05/24 12/06/24 23:59 23:59 23:59 23:59 Intake Total 3563.4 1672.5 2020 840 Output Total 3200 4250 3350 3150 Balance 363.4 -8257.5 -3762 -2310 Meds/Results Medications: Active Medications Generic Name Dose Route Start Last Admin Trade Name Freq PRN Reason Stop Dose Admin Acetaminophen 650 mg 12/03/24 14:07 12/03/24 14:21 Acetaminophen 325 Mg Tablet PO 650 mg Q4H PRN Administration Headache Albuterol 2 puff 12/02/24 23:29 Albuterol Sulfate (*Sp) Aerosol 1 Puff INHALATION Q6HRT PRN shortness of breath or wheezing Albuterol 2.5 mg 12/04/24 12:00 12/06/24 11:19 Albuterol Sulfate Neb 2.5 Mg/3 Ml Inh INHALATION 2.5 mg Q4HRT BANG Administration Atorvastatin Calcium 40 mg 12/03/24 09:00 12/06/24 08:43 Atorvastatin 40 Mg Tablet PO 40 mg DAILY BANG Administration Diltiazem HCl 120 mg 12/04/24 09:00 12/06/24 08:43 Diltiazem Hcl Cd 120 Mg Cap.24hr PO 120 mg QAM BANG Administration Fentanyl Citrate 25 mcg 12/03/24 10:17 12/03/24 12:35 Fentanyl Citrate Inj (*Crx) 100 Mcg/2 Ml Vial IV PUSH 25 mcg Q2M PRN Administration Pain Fluticasone Propionate 1 spray 12/03/24 09:00 12/06/24 08:43 Fluticasone Propionate 0.05% Na Spr 16 Gm Btl (*Bkc) NASAL 1 spray DAILY BANG Administration Ceftriaxone Sodium 1 gm in 50 mls @ 100 mls/hr 12/03/24 22:00 12/05/24 21:35 Rocephin 1 Gm/Ns 50 Ml IVPB Infused Q24H BANG Infusion Metoprolol Tartrate 25 mg 12/05/24 09:00 12/06/24 08:43 Metoprolol Tartrate 25 Mg Tablet PO 25 mg Q12HR BNAG Administration Ondansetron HCl 4 mg 12/03/24 06:23 12/03/24 06:33 Ondansetron Hcl Odt 4 Mg Tablet PO 4 mg Q6H PRN Administration Nausea And Vomiting Ondansetron HCl 4 mg 12/03/24 10:17 Ondansetron Inj 4 Mg/2 Ml Vial IV PUSH ONCE PRN Nausea Perflutren Lipid Microsphere 0 ml 12/04/24 14:37 Perflutren Lipid Microspheres 1.5 Ml Vial Diluted To 10 Ml Total Volume IV PUSH 12/07/24 14:37 ONCE PRN adequate visualization Protocol Fluticasone/Salmeterol 2 puff 12/03/24 08:00 12/06/24 07:36 Fluticasone/Salmeterol 115-21 Mcg Inhaler 1 Puff INHALATION 2 puff Q12HRT BANG Administration Sodium Bicarbonate 650 mg 12/04/24 11:55 12/06/24 08:43 Sodium Bicarbonate Tab 650 Mg Tablet PO 12/06/24 17:01 650 mg BID BANG Administration Tamsulosin HCl 0.4 mg 12/03/24 09:00 12/06/24 08:43 Tamsulosin Hcl 0.4 Mg Capsule PO 0.4 mg DAILY BANG Administration Radiology Results: ITS Impressions Abdomen/Pelvis CT 12/02/24 18:41 IMPRESSION: Bilateral hydroureteronephrosis without an obstructing calculus identified. Abnormal mural thickening within the posterior wall of the bladder for which a malignancy is suspected and for which direct visualization is recommended. Chest X-Ray 12/04/24 13:32 Impression: Diffuse pulmonary disease, suggestive of diffuse pulmonary edema and/or chronic interstitial disease. Correlate clinically. Minimal pleural effusions. Labs Labs: Laboratory Results - last 24 hr 12/05/24 12/06/24 16:50 03:42 WBC 10.7 H 10.2 H RBC 3.54 L 3.30 L Hgb 12.1 L 11.2 L Hct 37.1 L 34.7 L MCV 104.8 H 105.2 H MCH 34.2 H 33.9 MCHC 32.6 32.3 RDW 14.1 14.4 Plt Count 177 167 MPV 12.0 H 11.8 H Immature Gran % (Auto) 0.7 H Neut % (Auto) 77.0 H Lymph % (Auto) 9.2 L [place] % (Auto) 12.9 H Eos % (Auto) 0.1 Baso % (Auto) 0.1 L Lymph # (Auto) 0.99 [place] # (Auto) 1.4 H Eos # (Auto) 0.0 Baso # (Auto) 0.0 Abs Immat Gran (auto) 0.07 H Absolute Neuts (auto) 8.3 H Absolute Nucleated RBC 0.000 Nucleated RBC % 0.0 Sodium 140 Potassium 4.0 Chloride 111 H Carbon Dioxide 22 Anion Gap 7 BUN 34 H D Creatinine 2.30 H Estim Creat Clear Calc 32 Estimated GFR 29 L Glucose 95 Calcium 8.2 L Phosphorus 3.0 Total Bilirubin 0.3 AST 28 ALT 27 Alkaline Phosphatase 69 Total Protein 6.0 L Albumin 3.0 L
--- NOTE | 2024-12-06 16:22 | PC.NURSE ---
This patient, Stanislav Cho, was transferred to [facility] on 12/06/24 at 1622. Personal belongings sent with patient. Report given to Adriana. Appropriate documentation sent with patient. Nicolasa Mercedes RN
[2024-12-06 18:12] LABS: Basophils Percent Auto 0.2 % (0.2-1.2); Eosinophils Absolute Auto 0.2 K/mm3 (0-0.3); Eosinophils Percent Auto 1.8 % (0-4.4); Hematocrit 38.2 % (42.0-52.0); Hemoglobin 12.4 g/dL (14.0-18.0); Immature Granulocyte Absolute 0.07 K/mm3 (0.00-0.031); Immature Granulocyte Percent A 0.7 % (0-0.5); Lymphocytes Absolute Auto 1.38 K/mm3 (0.9-3.2); Lymphocytes Percent Auto 14.1 % (18.3-44.2); Mean Corpuscular HGB Conc 32.5 g/dl (32-36); Mean Corpuscular Hemoglobin 34.1 pg (26-34); Mean Corpuscular Volume 104.9 fl (80-100); Mean Platelet Volume 11.7 fl (7.4-10.4); Monocytes Absolute Auto 1.2 K/mm3 (0.1-0.6); Monocytes Percent Auto 12.4 % (2.6-8.5); Neutrophils Percent Auto 70.8 % (45.5-73.1); Platelet Count Result 179 k/mm3 (150-375); Red Blood Count 3.64 M/mm3 (4.6-6.20); Red Cell Distribution Width 14.2 % (11.5-14.5); White Blood Count 9.8 K/mm3 (4.5-10.0)
[2024-12-07] VITALS (16 sets, daily range): BP systolic 113–125; BP diastolic 68–76; PULSE 52–101; RESP 14–20; TEMP 36.4–36.8; O2SAT 96–99
[2024-12-07] MEDS: ALBUTEROL SULFATE NEB 2.5 MG/3 ML INH INHALATION ×6 (00:16→20:07)
--- NOTE | 2024-12-07 04:03 | PCRCNOTE ---
Patient is sleeping, will call if tx is needed, RN aware.
[2024-12-07 06:05] LABS: Hematocrit 35.7 % (42.0-52.0); Mean Corpuscular HGB Conc 33.6 g/dl (32-36); Mean Corpuscular Hemoglobin 34.2 pg (26-34); Mean Corpuscular Volume 101.7 fl (80-100); Mean Platelet Volume 11.3 fl (7.4-10.4); Platelet Count Result 186 k/mm3 (150-375); Red Blood Count 3.51 M/mm3 (4.6-6.20); White Blood Count 9.1 K/mm3 (4.5-10.0)
--- NOTE | 2024-12-07 06:15 | P.PNUR_ITS ---
Progress Note: A&P Assessment and Plan (1) Hydroureteronephrosis: Code(s): N13.30 - Unspecified hydronephrosis Status: Acute (2) Acute renal failure: Qualifiers: Acute renal failure type: unspecified Qualified Code(s): N17.9 - Acute kidney failure, unspecified Code(s): N17.9 - Acute kidney failure, unspecified Status: Acute (3) Mass of bladder: Code(s): N32.89 - Other specified disorders of bladder Status: Acute Assessment and Plan: * Dr. Preston input noted. Chemoradiation for probable bladder cancer a viable option, barring metastatic disease when staging completed. * Will need left nephrostomy with internalizations left uretal stent but radiologists wanted 7 days off ASA if possible (putting this off until or later). * Will then need aggressive TURBT. * Tentative plans: I'll see if I can arrange intervention radiologist to simultaneously place nephrostomy and nephrostent as outpatient later this week/early next week - followed by staging and aggressive TURBT later next week. Subjective Subjective Date/Time Seen: 12/07/24 06:15 Interval history: Feeling well / no complaints Review of Systems Cardiovascular: Cardiovascular: Denies chest pain, Denies lightheadedness, Denies palpitations and Denies dyspnea Respiratory: Respiratory: Denies dyspnea Gastrointestinal: Gastrointestinal: Denies diarrhea, Denies nausea and Denies vomiting Genitourinary: Genitourinary: Denies hematuria and Denies dysuria Endocrine: Endocrine: Denies palpitations Exam Const: General: no acute distress Resp: Effort & Inspection: normal respiratory effort GI: Inspection: non-distended GI Palp: No abdominal tenderness and No Guarding due to palpation present (GI) Auscultation: normal bowel sounds Objective Data Vital Signs Vital Signs: Vital Signs - 24 hr 12/06/24 07:37 12/06/24 07:37 12/06/24 07:46 Temperature Pulse Rate 73 84 Respiratory Rate 18 18 Blood Pressure Pulse Oximetry 97 Oxygen Delivery High Flow Nasal Cannula Oxygen Flow Rate 4 12/06/24 07:48 12/06/24 08:00 12/06/24 08:00 Temperature 97.5 F L Pulse Rate 72 91 Respiratory Rate 16 Blood Pressure 125/78 Pulse Oximetry 97 97 Oxygen Delivery High Flow Therapy with Na Oxygen Flow Rate 2 12/06/24 08:16 12/06/24 08:43 12/06/24 10:00 Temperature Pulse Rate 96 94 Respiratory Rate Blood Pressure Pulse Oximetry 93 Oxygen Delivery High Flow Nasal Cannula Oxygen Flow Rate 2 12/06/24 11:19 12/06/24 11:29 12/06/24 15:12 Temperature Pulse Rate 90 96 89 Respiratory Rate 18 18 18 Blood Pressure Pulse Oximetry Oxygen Delivery Oxygen Flow Rate 12/06/24 15:23 12/06/24 16:00 12/06/24 16:40 Temperature 98.8 F Pulse Rate 89 72 Respiratory Rate 18 18 Blood Pressure 129/59 L Pulse Oximetry 94 93 Oxygen Delivery High Flow Nasal Cannula Oxygen Flow Rate 2 12/06/24 19:57 12/06/24 20:07 12/06/24 20:08 Temperature Pulse Rate 92 92 Respiratory Rate 16 16 Blood Pressure Pulse Oximetry 94 Oxygen Delivery High Flow Nasal Cannula Oxygen Flow Rate 2 12/06/24 20:41 12/06/24 20:41 12/06/24 21:26 Temperature 97.1 F L Pulse Rate 88 67 Respiratory Rate 12 Blood Pressure 133/75 Pulse Oximetry 97 97 Oxygen Delivery High Flow Nasal Cannula Oxygen Flow Rate 2 12/07/24 00:18 12/07/24 00:24 12/07/24 05:35 Temperature 97.5 F L Pulse Rate 92 92 82 Respiratory Rate 16 16 14 Blood Pressure 125/70 Pulse Oximetry 96 Oxygen Delivery Oxygen Flow Rate Intake/Output Intake/Output: Intake & Output 12/04/24 12/05/24 12/06/24 12/07/24 23:59 23:59 23:59 23:59 Intake Total 1672.5 2020 2000 100 Output Total [address] [facility] -2577.5 -1330 -1600 -2200 Meds/Results Medications: Active Medications Generic Name Dose Route Start Last Admin Trade Name Freq PRN Reason Stop Dose Admin Acetaminophen 650 mg 12/03/24 14:07 12/03/24 14:21 Acetaminophen 325 Mg Tablet PO 650 mg Q4H PRN Administration Headache Albuterol 2 puff 12/02/24 23:29 Albuterol Sulfate (*Sp) Aerosol 1 Puff INHALATION Q6HRT PRN shortness of breath or wheezing Albuterol 2.5 mg 12/04/24 12:00 12/07/24 04:03 Albuterol Sulfate Neb 2.5 Mg/3 Ml Inh INHALATION 2.5 mg Q4HRT BANG Administration Atorvastatin Calcium 40 mg 12/03/24 09:00 12/06/24 08:43 Atorvastatin 40 Mg Tablet PO 40 mg DAILY BANG Administration Diltiazem HCl 120 mg 12/04/24 09:00 12/06/24 08:43 Diltiazem Hcl Cd 120 Mg Cap.24hr PO 120 mg QAM BANG Administration Fentanyl Citrate 25 mcg 12/03/24 10:17 12/03/24 12:35 Fentanyl Citrate Inj (*Crx) 100 Mcg/2 Ml Vial IV PUSH 25 mcg Q2M PRN Administration Pain Fluticasone Propionate 1 spray 12/03/24 09:00 12/06/24 08:43 Fluticasone Propionate 0.05% Na Spr 16 Gm Btl (*Bkc) NASAL 1 spray DAILY BANG Administration Ceftriaxone Sodium 1 gm in 50 mls @ 100 mls/hr 12/03/24 22:00 12/06/24 21:44 Rocephin 1 Gm/Ns 50 Ml IVPB Infused Q24H BANG Infusion Metoprolol Tartrate 25 mg 12/05/24 09:00 12/06/24 20:41 Metoprolol Tartrate 25 Mg Tablet PO 25 mg Q12HR BANG Administration Ondansetron HCl 4 mg 12/03/24 06:23 12/03/24 06:33 Ondansetron Hcl Odt 4 Mg Tablet PO 4 mg Q6H PRN Administration Nausea And Vomiting Ondansetron HCl 4 mg 12/03/24 10:17 Ondansetron Inj 4 Mg/2 Ml Vial IV PUSH ONCE PRN Nausea Perflutren Lipid Microsphere 0 ml 12/04/24 14:37 Perflutren Lipid Microspheres 1.5 Ml Vial Diluted To 10 Ml Total Volume IV PUSH 12/07/24 14:37 ONCE PRN adequate visualization Protocol Fluticasone/Salmeterol 2 puff 12/03/24 08:00 12/06/24 19:57 Fluticasone/Salmeterol 115-21 Mcg Inhaler 1 Puff INHALATION 2 puff Q12HRT BANG Administration Tamsulosin HCl 0.4 mg 12/03/24 09:00 12/06/24 08:43 Tamsulosin Hcl 0.4 Mg Capsule PO 0.4 mg DAILY BANG Administration Radiology Results: ITS Impressions Abdomen/Pelvis CT 12/02/24 18:41 IMPRESSION: Bilateral hydroureteronephrosis without an obstructing calculus identified. Abnormal mural thickening within the posterior wall of the bladder for which a malignancy is suspected and for which direct visualization is recommended. Chest X-Ray 12/04/24 13:32 Impression: Diffuse pulmonary disease, suggestive of diffuse pulmonary edema and/or chronic interstitial disease. Correlate clinically. Minimal pleural effusions. Labs Labs: Laboratory Results - last 24 hr 12/06/24 12/06/24 03:38 18:04 WBC 9.8 RBC 3.64 L Hgb 12.4 L Hct 38.2 L MCV 104.9 H MCH 34.1 H MCHC 32.5 RDW 14.2 Plt Count 179 MPV 11.7 H Immature Gran % (Auto) 0.7 H Neut % (Auto) 70.8 Lymph % (Auto) 14.1 L [place] % (Auto) 12.4 H Eos % (Auto) 1.8 Baso % (Auto) 0.2 Lymph # (Auto) 1.38 [place] # (Auto) 1.2 H Eos # (Auto) 0.2 Baso # (Auto) 0.0 Abs Immat Gran (auto) 0.07 H Absolute Neuts (auto) 7.0 H Absolute Nucleated RBC 0.000 Nucleated RBC % 0.0 Vitamin B12 997.0 H Folate 6.0 TSH (Reflex) 2.410
[2024-12-07 06:16] LABS: Alanine Aminotransferase 31 U/L (6-50); Alkaline Phosphatase 70 U/L (38-126); Anion Gap 7 mmol/L (4-12); Aspartate Amino Transferase 25 U/L (17-59); Bilirubin,Total 0.7 mg/dL (0.2-1.3); Blood Urea Nitrogen 26 mg/dL (9-20); Calcium 8.3 mg/dL (8.4-10.2); Carbon Dioxide 23 mmol/L (22-30); Chloride 107 mmol/L (98-107); Estimated CRCL calculation 40 ml/min; Estimated Glomerular Filt Rate 37; Glucose 86 mg/dL (65-110); Potassium 3.6 mmol/L (3.4-5.0); Sodium 137 mmol/L (137-145)
[2024-12-07] MEDS: FLUTICASONE/SALMETEROL 115-21 MCG INHALER 1 PUFF 2 PUFF INHALATION ×2 (07:38→20:18)
[2024-12-07 08:30] LABS: Immature Reticulocyte Fraction 13.9 % (3.0-15.9); Reticulocyte Hemoglobin Conten 36.4 pg (28.2-36.6); Reticulocyte Percent 1.54 % (0.7-4.3); Reticulocytes Absolute 0.05 10^6/uL (0.02-0.10)
[2024-12-07] MEDS: METOPROLOL TARTRATE 25 MG TABLET PO ×2 (09:09→21:21)
[2024-12-07] MEDS: FLUTICASONE PROPIONATE 0.05% NA SPR 16 GM BTL (*BKC) 1 SPRAY NASAL (09:10)
[2024-12-07] MEDS: dilTIAZem HCL CD 120 MG CAP.24HR PO (09:10)
[2024-12-07] MEDS: ATORVASTATIN 40 MG TABLET PO (09:10)
[2024-12-07] MEDS: TAMSULOSIN HCL 0.4 MG CAPSULE PO (09:10)
--- NOTE | 2024-12-07 11:25 | P.PNNP_ITS ---
Progress Note: A&P Assessment and Plan (1) Acute kidney injury: Code(s): N17.9 - Acute kidney failure, unspecified Status: Acute Assessment and Plan: * ongoing improvement noted * presumed to be secondary to obstructive uropathy * significant improvement with right ureteral stent placement * intervention with left kidney to be needed as well (see #2) * follow trend of repeat labs and UOP (2) Hydroureteronephrosis: Code(s): N13.30 - Unspecified hydronephrosis Status: Acute Assessment and Plan: * bilateral and as noted on admission CT of abdomen/pelvis * Urology following: * s/p cystoscopy, right retrograde pyelography and right ureteral stent placement and TURBT * attempted left ureteral stent placement (but unable to locate left ureteral orifice) * will likely need placement of a left percutaneous nephrostomy tube with eventual internalization of ureteral stent (3) Hyperkalemia: Code(s): E87.5 - Hyperkalemia Status: Acute Assessment and Plan: * resolving/resolved * due to #1 and #2 * s/p medical management * follow trend of K+ (4) Metabolic acidosis: Code(s): E87.20 - Acidosis, unspecified Status: Acute Assessment and Plan: * resolving/resolved * due to HOANG/ARF * s/p a few dose of oral sodium bicarbonate for compensation * follow CO2 levels (5) Hypoxia: Code(s): R09.02 - Hypoxemia Status: Acute Assessment and Plan: * improving * as noted since afternoon of 12/03 * supplemental oxygen being weaned * CXR with evidence of pleural effusions and congestion * however, previous imaging (CT of chest in 2023) notes evidence of emphysema as well.. * post-obstructive diuresis ongoing * Echo (on 12/03) noted: * left ventricular systolic function is normal, estimated at 55-60% * left ventricular diastolic function is normal * mitral valve has mildly calcified annulus * mild mitral valve regurgitation * mild pulmonary hypertension, estimated pulmonary arterial systolic pressure is 42 mmHg * follow respiratory status (6) Atrial fibrillation with RVR: Code(s): I48.91 - Unspecified atrial fibrillation Status: Acute Assessment and Plan: * rate control strategy * on diltiazem and metoprolol * Cardiology following (7) Acute UTI: Code(s): N39.0 - Urinary tract infection, site not specified Status: Acute Assessment and Plan: * admission UA suggestive * however, urine culture was not done * on antibiotics (8) Mass of bladder: Code(s): N32.89 - Other specified disorders of bladder Status: Acute Assessment and Plan: * s/p TURBT * 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 Rojas -- not opposed to discharge from renal perspective if otherwise medically stable and arrangements for left nephrostomy tube placement/stenting has been finalized. Will continue to follow. L Subjective Date/time seen: 12/07/24 11:25 Interval history: Follow-up for acute kidney injury/acute renal failure. Chart reviewed since last seen -- ongoing improvement in renal function/creatinine with reasonable urine output; respiratory status/breathing has also improved if not stabilized; no apparent distress voiced at the time of my visit; no other issues/events overnight or earlier this AM. Exam 2 Narrative: General: elderly but WD/WN male in NAD Heart: normal S1 and S2; no rub Lungs: coarse breath sounds Abdomen: soft, nontender, nondistended, positive bowel sounds Extremities: no cyanosis or clubbing; no edema Skin: warm and intact Objective Data Vital Signs Vital Signs: Vital Signs Temp Pulse Resp BP Pulse Ox O2 Del Method O2 Flow Rate 12/07/24 11:15 77 18 12/07/24 09:09 100 12/07/24 07:43 101 H 18 12/07/24 07:38 97 18 12/07/24 07:38 96 High Flow Nasal Cannula 2 12/07/24 05:35 97.5 F L 82 14 125/70 96 12/07/24 00:24 92 16 12/07/24 00:18 92 16 12/06/24 21:26 97.1 F L 67 12 133/75 97 12/06/24 20:41 97 High Flow Nasal Cannula 2 12/06/24 20:41 88 12/06/24 20:08 94 High Flow Nasal Cannula 2 12/06/24 20:07 92 16 12/06/24 19:57 92 16 12/06/24 16:40 93 High Flow Nasal Cannula 2 12/06/24 16:00 98.8 F 72 18 129/59 L 94 12/06/24 15:23 89 18 12/06/24 15:12 89 18 Intake/Output Intake/Output: Intake & Output 12/04/24 12/05/24 12/06/24 12/07/24 23:59 23:59 23:59 23:59 Intake Total 1672.5 2019 1999 576 Output Total 4250 3350 3600 2300 Balance -2577.5 -3891 -5415 -4684 Meds/Results Medications: Active Medications Generic Name Dose Route Start Last Admin Trade Name Freq PRN Reason Stop Dose Admin Acetaminophen 650 mg 12/03/24 14:07 12/03/24 14:21 Acetaminophen 325 Mg Tablet PO 650 mg Q4H PRN Administration Headache Albuterol 2 puff 12/02/24 23:29 Albuterol Sulfate (*Sp) Aerosol 1 Puff INHALATION Q6HRT PRN shortness of breath or wheezing Albuterol 2.5 mg 12/04/24 12:00 12/07/24 11:38 Albuterol Sulfate Neb 2.5 Mg/3 Ml Inh INHALATION 2.5 mg Q4HRT BANG Administration Amoxicillin/Clavulanate Potassium 1 tablet 12/07/24 21:00 Amoxicillin/Clavulanate K 875-125 Mg Tab PO 12/12/24 09:01 Q12HR BANG Atorvastatin Calcium 40 mg 12/03/24 09:00 12/07/24 09:10 Atorvastatin 40 Mg Tablet PO 40 mg DAILY BANG Administration Diltiazem HCl 120 mg 12/04/24 09:00 12/07/24 09:10 Diltiazem Hcl Cd 120 Mg Cap.24hr PO 120 mg QAM BANG Administration Fentanyl Citrate 25 mcg 12/03/24 10:17 12/03/24 12:35 Fentanyl Citrate Inj (*Crx) 100 Mcg/2 Ml Vial IV PUSH 25 mcg Q2M PRN Administration Pain Fluticasone Propionate 1 spray 12/03/24 09:00 12/06/24 08:43 Fluticasone Propionate 0.05% Na Spr 16 Gm Btl (*Bkc) NASAL 1 spray DAILY BANG Administration Metoprolol Tartrate 25 mg 12/05/24 09:00 12/07/24 09:09 Metoprolol Tartrate 25 Mg Tablet PO 25 mg Q12HR BANG Administration Ondansetron HCl 4 mg 12/03/24 06:23 12/03/24 06:33 Ondansetron Hcl Odt 4 Mg Tablet PO 4 mg Q6H PRN Administration Nausea And Vomiting Ondansetron HCl 4 mg 12/03/24 10:17 Ondansetron Inj 4 Mg/2 Ml Vial IV PUSH ONCE PRN Nausea Perflutren Lipid Microsphere 0 ml 12/04/24 14:37 Perflutren Lipid Microspheres 1.5 Ml Vial Diluted To 10 Ml Total Volume IV PUSH 12/07/24 14:37 ONCE PRN adequate visualization Protocol Polyethylene Glycol 17 gm 12/07/24 12:35 Polyethylene Glycol 3350 17 Gm Powd.Pack PO QAM PRN Constipation Fluticasone/Salmeterol 2 puff 12/03/24 08:00 12/07/24 07:38 Fluticasone/Salmeterol 115-21 Mcg Inhaler 1 Puff INHALATION 2 puff Q12HRT BANG Administration Tamsulosin HCl 0.4 mg 12/03/24 09:00 12/07/24 09:10 Tamsulosin Hcl 0.4 Mg Capsule PO 0.4 mg DAILY BANG Administration Radiology Results: ITS Impressions Abdomen/Pelvis CT 12/02/24 18:41 IMPRESSION: Bilateral hydroureteronephrosis without an obstructing calculus identified. Abnormal mural thickening within the posterior wall of the bladder for which a malignancy is suspected and for which direct visualization is recommended. Chest X-Ray 12/04/24 13:32 Impression: Diffuse pulmonary disease, suggestive of diffuse pulmonary edema and/or chronic interstitial disease. Correlate clinically. Minimal pleural effusions. Labs Labs: Laboratory Tests 12/07/24 05:53 12/07/24 05:53 Calcium 8.3 L Total Bilirubin 0.7 AST 25 ALT 31 Alkaline Phosphatase 70 Total Protein 6.0 L Albumin 3.0 L
--- NOTE | 2024-12-07 11:45 | P.DS_ITS ---
DS: Admitting Diagnosis Discharge Date 12/07/2024 Admitting Diagnosis Urinary retention DS: Discharge Diagnosis Discharge Diagnosis (1) Atrial fibrillation with RVR: Code(s): I48.91 - Unspecified atrial fibrillation Status: Acute Assessment and Plan: Continue Metoprolol Tartrate 25 mg PO q 6hr Diltiazem 60mg PO q hr (2) Hydroureteronephrosis: Code(s): N13.30 - Unspecified hydronephrosis Status: Acute Assessment and Plan: Urology was consulted and he underwent Cystoscopy, right retrograde pyelography and right ureteral stent placement. Attempted left ureteral stent placement. TURBT (large, 5-6cm) (3) Acute hyperkalemia: Code(s): E87.5 - Hyperkalemia Status: Acute Assessment and Plan: Given Lokelma and Albuterol (4) Acute renal failure: Qualifiers: Acute renal failure type: unspecified Qualified Code(s): N17.9 - Acute kidney failure, unspecified Code(s): N17.9 - Acute kidney failure, unspecified Status: Acute Assessment and Plan: Nephrology following Will trend Cr Possible post renal Urology was consulted and he underwent Cystoscopy, right retrograde pyelography and right ureteral stent placement. Attempted left ureteral stent placement. TURBT (large, 5-6cm) (5) Bladder wall thickening: Code(s): N32.89 - Other specified disorders of bladder Status: Acute Assessment and Plan: ass above (6) Acute UTI: Code(s): N39.0 - Urinary tract infection, site not specified Status: Acute Assessment and Plan: Continue Ceftriaxone (7) Bladder cancer: Code(s): C67.9 - Malignant neoplasm of bladder, unspecified Status: Acute Assessment and Plan: Biopsy shows Invasive Urothelial Carcinoma,high grade As per urology possibly will do as OP: neoadjuvant chemotherapy followed by cystectomy with urinary diversion Oncology on board DS: Summary Hospital Course Hospital Course: 69-year-old male with a history of dyslipidemia, AFib, COPD, BPH, prior tobacco abuse, marijuana use, who presents with the complaint of urinary retention for a few days. He has been taking tamsulosin and it was recently increased per his PCP. For about 3 weeks ago he developed dysuria and he was taking antibiotics with improvement of his dysuria. The dysuria then returned about a week prior to admission. Over the past couple days the patient has had difficulty urinating and emptying his bladder. He was advised to report to the ER. He also reports suprapubic pressure slightly to the right as well as right flank pain. He has had nausea and vomiting and decreased p.o. intake. Denies hematuria, fever, shortness of breath, chest pain. On the day of admission on 12/01/2024 at [place] [facility] he was found to have a respiratory rate 13, blood pressure 135/87, temperature 97.5? F, saturating 94% on room air. He was in atrial fibrillation with RVR in the 120s to 140s. WBC 8.7, hemoglobin 13.9, potassium 5.2, bicarb 16, anion gap 19, BUN 89, serum creatinine 12.7, phosphorus 8.3, magnesium 2.6, urinalysis cloudy, 2+ blood, leukocyte esterase 2+, WBC 50 1-100, moderate squamous cells identified, CT abdomen and pelvis without contrast demonstrated bilateral hydroureteronephrosis without an obstructing calculus identified, abnormal neuro mural thickening within the posterior wall of the bladder for which malignancy is suspected. After I assumed care on 12/03/2024. Patient was seen by the Urology and he underwent Cystoscopy, right retrograde pyelography and right ureteral stent placement. Attempted left ureteral stent placement. TURBT (large, 5- 6cm).Oncology is consulted for possible bladder or prostate cancer. CT of abdomen and pelvis without contrast could not comment on regional lymphadenopathy due to absence of contrast. As per urology * Dr. Preston input noted. Chemoradiation for probable bladder cancer a viable option, barring metastatic disease when staging completed. * Will need left nephrostomy with internalizations left uretal stent but radiologists wanted 7 days off ASA if possible (putting this off until or later). * Will then need aggressive TURBT. * Tentative plans: I'll see if I can arrange intervention radiologist to simultaneously place nephrostomy and nephrostent as outpatient later this week/early next week - followed by staging and aggressive TURBT later next week. 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 Status at Discharge Cognitive/behavioral status at discharge: Stable Time Spent with Patient Time attestation: Total time spent providing and/or coordinating discharge services: 45 minutes Exam Narrative: GENERAL APPEARANCE: well developed well nourished male in no acute distress HEENT: normocephalic, atraumatic, normal conjunctiva and sclera, nares patient NECK: no lymphadenopathy, thyromegaly, or JVD MOUTH: normal lips, teeth, and gums CARDIOVASCULAR: RRR, normal S1 and S2, no rub RESPIRATORY: clear to auscultation bilaterally ABDOMEN: soft, nontender, nondistended, positive bowel sounds present EXTREMITIES: no evidence of cyanosis, clubbing, trace edema NEUROLOGICAL: alert and oriented x 3; CN II - XII intact bilaterally; no focal deficits noted Const: General: comfortable and no acute distress Orientation/consciousness: oriented to person, oriented to place and oriented to time Other: A&O x3 HENMT: Mouth: Yes dry mucous membranes Eyes: Pupils: Equal, round and reactive pupils present Neck: Neck: supple Resp: Effort & Inspection: normal respiratory effort Auscultation: clear to auscultation bilaterally Cardio: Rate: regular rate Rhythm: regular rhythm Heart sounds: no murmurs Peripheral pulses: dorsalis pedis present GI: Inspection: non-distended Auscultation: normal bowel sounds : General: Yes bladder normal to palpation Urinary Catheter: Urinary Catheter: patent and draining and urine cloudy Neuro: General: oriented to person, oriented to place and oriented to time Cranial nerves: Yes Equal, round and reactive pupils present Motor exam (neuro): 5/5 motor strength present throughout Sensory Exam: normal sensation Extrem: General: edema (Trivial pitting edema at the bilateral lower extremities below the knees) Right lower extremity: no edema Left lower extremity: no edema Psych: Mental Status: mental status grossly normal DS: Data Data Completed and Pending Completed studies during hospitalization: Pending at discharge 12/03/24 11:23 Surgical [PTH] Routine Labs on day of discharge: Labs from last 24 hours 12/07/24 12/06/24 12/06/24 05:53 18:04 03:38 WBC 9.1 9.8 RBC 3.51 L 3.64 L Hgb 12.0 L 12.4 L Hct 35.7 L 38.2 L MCV 101.7 H 104.9 H MCH 34.2 H 34.1 H MCHC 33.6 32.5 RDW 14.0 14.2 Plt Count 186 179 MPV 11.3 H 11.7 H Immature Gran % (Auto) 0.7 H Neut % (Auto) 70.8 Lymph % (Auto) 14.1 L [place] % (Auto) 12.4 H Eos % (Auto) 1.8 Baso % (Auto) 0.2 Lymph # (Auto) 1.38 [place] # (Auto) 1.2 H Eos # (Auto) 0.2 Baso # (Auto) 0.0 Abs Immat Gran (auto) 0.07 H Absolute Neuts (auto) 7.0 H Absolute Nucleated RBC 0.000 Nucleated RBC % 0.0 Absolute Retic 0.05 Percent Retic 1.54 Immature Retic Fraction 13.9 Retic Hgb Content 36.4 Haptoglobin Pending Sodium 137 Potassium 3.6 Chloride 107 Carbon Dioxide 23 Anion Gap 7 BUN 26 H Creatinine 1.82 H Estim Creat Clear Calc 40 Estimated GFR 37 L Glucose 86 Calcium 8.3 L Total Bilirubin 0.7 AST 25 ALT 31 Alkaline Phosphatase 70 Total Protein 6.0 L Pending Albumin 3.0 L Pending [id number] Pending [id number] Pending [id number] Pending [id number] Pending Gamma Globulins Pending Abnorm Protein Band 1 Pending PEP Interpretation Pending Vitamin B12 997.0 H Folate 6.0 TSH (Reflex) 2.410 Campus/Lambda Ratio Pending Free Campus Light Chains Pending Free Lambda Light Chain Pending Preliminary micro results at discharge 12/02/24 21:26 Blood Culture - Preliminary Blood 12/02/24 21:42 Blood Culture - Preliminary Blood Discharge Plan Discharge Attending physician on discharge: Ramesh Rojas Consulting providers: Min Perez; Lon Foster; Jorge Alberto Carlson; Noni Ferrara Discharging Clinician: Ramesh Rojas Anticipated Discharge Date/Time: 12/07/24 09:06 Patient Disposition: Home Activity: as tolerated Diet: renal Discharge Instructions: Patient needs to follow-up with Nephrology, Urology and Oncology within a week upon discharge. Do not take aspirin for 7 days and follow up with As per urology will place nephrostomy and nephrostent as outpatient later this week/early next week - followed by staging and aggressive TURBT later next week. Patient Instructions: Antibiotic Form Patient Language: [place] Stand Alone Forms: General Discharge Information Follow-up/Referrals: Devora,STELLA Dos Santos [Primary Care Provider] - Jorge Alberto Carlson DO [Physician] - Min Perez MD [Physician] - Noni Preston MD [Physician] - Lon Foster MD [Physician] - Discharge Medications: New metoprolol tartrate 25 mg Tablet 25 mg PO Q12HR Qty: 30 0RF diltiazem HCl 120 mg Capsule,Extended Release 24hr 120 mg PO QAM Qty: 30 0RF Continued nitroglycerin 0.4 mg tablet, sublingual 0.4 mg sublingual Q5M PRN (Reason: Chest Pain) Rx Instructions: do not exceed 3 doses per episode vitamin [id number] acid 0.5-1 mg tablet 1 tablet PO DAILY fluticasone propionate [Allergy Relief (fluticasone)] 50 mcg/actuation spray,suspension 1 spray intranasal DAILY Rx Instructions: administer into each nostril ergocalciferol (vitamin D2) 1,250 mcg (50,000 unit) capsule 1,250 mcg PO WEEKLY atorvastatin 40 mg tablet 40 mg PO DAILY tamsulosin 0.4 mg capsule 0.4 mg PO DAILY albuterol sulfate 90 mcg/actuation HFA aerosol inhaler 2 puff INHALATION Q6H PRN (Reason: shortness of breath or wheezing) fluticasone propion-salmeterol [Advair HFA] 115-21 mcg/actuation HFA aerosol inhaler 2 puff INHALATION DAILY budesonide-formoterol [Symbicort] 160-4.5 mcg/actuation HFA aerosol inhaler 2 puff INHALATION DAILY Held aspirin 325 mg tablet,delayed release (DR/EC) 325 mg PO DAILY Hold Instructions: Resume on 12/18/24. Please discuss with the before continuing the medication. Holding due to place nephrostomy and nephrostent as outpatient later this week/early next week - followed by staging and aggressive TURBT later next week Discontinued metoprolol succinate 50 mg tablet extended release 24 hr 50 mg PO DAILY Qty: 30 5RF Date of admission: 12/02/24 20:30 Primary Care Provider: Madelyn*Raya Perera Admitting Provider: Angie Bardales Attending physician on admission: Angie Bardales Condition: Stable
[2024-12-07 15:08] LABS: PSA, Free 2.6 ng/mL; PSA, Total 7.2 ng/mL (< OR = 4.0); Percent Free Prostate Spec Ag 36 % (calc) (>25)
[2024-12-07] MEDS: SENNA/DOCUSATE SODIUM TABLET 2 TAB PO (17:30)
--- NOTE | 2024-12-07 18:21 | PM.IMPN ---
Progress Note: A&P Assessment and Plan (1) Atrial fibrillation with RVR: Code(s): I48.91 - Unspecified atrial fibrillation Status: Acute Assessment and Plan: Continue Metoprolol Tartrate 25 mg PO q 6hr Diltiazem 60mg PO q hr (2) Hydroureteronephrosis: Code(s): N13.30 - Unspecified hydronephrosis Status: Acute Assessment and Plan: Urology was consulted and he underwent Cystoscopy, right retrograde pyelography and right ureteral stent placement. Attempted left ureteral stent placement. TURBT (large, 5-6cm) (3) Acute hyperkalemia: Code(s): E87.5 - Hyperkalemia Status: Acute Assessment and Plan: Given Lokelma and Albuterol (4) Acute renal failure: Qualifiers: Acute renal failure type: unspecified Qualified Code(s): N17.9 - Acute kidney failure, unspecified Code(s): N17.9 - Acute kidney failure, unspecified Status: Acute Assessment and Plan: Nephrology following Will trend Cr Possible post renal Urology was consulted and he underwent Cystoscopy, right retrograde pyelography and right ureteral stent placement. Attempted left ureteral stent placement. TURBT (large, 5-6cm) (5) Bladder wall thickening: Code(s): N32.89 - Other specified disorders of bladder Status: Acute Assessment and Plan: ass above (6) Acute UTI: Code(s): N39.0 - Urinary tract infection, site not specified Status: Acute Assessment and Plan: Continue Ceftriaxone (7) Bladder cancer: Code(s): C67.9 - Malignant neoplasm of bladder, unspecified Status: Acute Assessment and Plan: Biopsy shows Invasive Urothelial Carcinoma,high grade As per urology possibly will do as OP: neoadjuvant chemotherapy followed by cystectomy with urinary diversion Oncology on board (8) Constipation: Code(s): K59.00 - Constipation, unspecified Status: Acute Assessment and Plan: Reviewed KUB Started on Miralax and Senakot s/p fleet enema Subjective Date/time seen: 12/07/24 18:21 Interval history: 69-year-old male with a history of dyslipidemia, AFib, COPD, BPH, prior tobacco abuse, marijuana use, who presents with the complaint of urinary retention for a few days. He has been taking tamsulosin and it was recently increased per his PCP. For about 3 weeks ago he developed dysuria and he was taking antibiotics with improvement of his dysuria. The dysuria then returned about a week prior to admission. Over the past couple days the patient has had difficulty urinating and emptying his bladder. He was advised to report to the ER. He also reports suprapubic pressure slightly to the right as well as right flank pain. He has had nausea and vomiting and decreased p.o. intake. Denies hematuria, fever, shortness of breath, chest pain. On the day of admission on 12/01/2024 at [facility] he was found to have a respiratory rate 13, blood pressure 135/87, temperature 97.5? F, saturating 94% on room air. He was in atrial fibrillation with RVR in the 120s to 140s. WBC 8.7, hemoglobin 13.9, potassium 5.2, bicarb 16, anion gap 19, BUN 89, serum creatinine 12.7, phosphorus 8.3, magnesium 2.6, urinalysis cloudy, 2+ blood, leukocyte esterase 2+, WBC 50 1-100, moderate squamous cells identified, CT abdomen and pelvis without contrast demonstrated bilateral hydroureteronephrosis without an obstructing calculus identified, abnormal neuro mural thickening within the posterior wall of the bladder for which malignancy is suspected. Patient was seen by the Urology and he underwent Cystoscopy, right retrograde pyelography and right ureteral stent placement. Attempted left ureteral stent placement. TURBT (large, 5-6cm).Oncology is consulted for possible bladder or prostate cancer. CT of abdomen and pelvis without contrast could not comment on regional lymphadenopathy due to absence of contrast. As per urology Dr. Preston input noted. Chemoradiation for probable bladder cancer a viable option, barring metastatic disease when staging completed. Will need left nephrostomy with internalizations left uretal stent but radiologists wanted 7 days off ASA if possible (putting this off until or later). Will then need aggressive TURBT. Tentative plans: I'll see if I can arrange intervention radiologist to simultaneously place nephrostomy and nephrostent as outpatient later this week/early next week - followed by staging and aggressive TURBT later next week. Discussed with both research agricultural engineer and urologist who agrees to discharge the patient.Holding discharge since patient didnt had a bowel movement since admission. Had very small BM after enema Review of Systems Review of Systems: All systems reviewed & are unremarkable except as noted in HPI and below (HPI) Exam Narrative: GENERAL APPEARANCE: well developed well nourished male in no acute distress HEENT: normocephalic, atraumatic, normal conjunctiva and sclera, nares patient NECK: no lymphadenopathy, thyromegaly, or JVD MOUTH: normal lips, teeth, and gums CARDIOVASCULAR: RRR, normal S1 and S2, no rub RESPIRATORY: clear to auscultation bilaterally ABDOMEN: soft, nontender, nondistended, positive bowel sounds present EXTREMITIES: no evidence of cyanosis, clubbing, trace edema NEUROLOGICAL: alert and oriented x 3; CN II - XII intact bilaterally; no focal deficits noted Const: Other: A&O x3 Objective Data Vital Signs Vital Signs: Vital Signs - 24 hr 12/06/24 19:57 12/06/24 20:07 12/06/24 20:08 Temperature Pulse Rate 92 92 Respiratory Rate 16 16 Blood Pressure Pulse Oximetry 94 Oxygen Delivery High Flow Nasal Cannula Oxygen Flow Rate 2 12/06/24 20:41 12/06/24 20:41 12/06/24 21:26 Temperature 97.1 F L Pulse Rate 88 67 Respiratory Rate 12 Blood Pressure 133/75 Pulse Oximetry 97 97 Oxygen Delivery High Flow Nasal Cannula Oxygen Flow Rate 2 12/07/24 00:18 12/07/24 00:24 12/07/24 05:35 Temperature 97.5 F L Pulse Rate 92 92 82 Respiratory Rate 16 16 14 Blood Pressure 125/70 Pulse Oximetry 96 Oxygen Delivery Oxygen Flow Rate 12/07/24 07:38 12/07/24 07:38 12/07/24 07:43 Temperature Pulse Rate 97 101 H Respiratory Rate 18 18 Blood Pressure Pulse Oximetry 96 Oxygen Delivery High Flow Nasal Cannula Oxygen Flow Rate 2 12/07/24 09:09 12/07/24 11:38 12/07/24 11:45 Temperature Pulse Rate 100 67 77 Respiratory Rate 18 18 Blood Pressure Pulse Oximetry Oxygen Delivery Oxygen Flow Rate 12/07/24 14:00 12/07/24 15:55 12/07/24 16:02 Temperature 97.9 F Pulse Rate 93 52 L 60 Respiratory Rate 20 18 18 Blood Pressure 113/68 Pulse Oximetry 96 Oxygen Delivery Oxygen Flow Rate Intake/Output Intake/Output: Intake & Output 12/04/24 12/05/24 12/06/24 12/07/24 23:59 23:59 23:59 23:59 Intake Total 1672.5 2019 1999 813 Output Total 4250 3350 3600 3650 Balance -2577.5 -1330 -1600 -8977 Meds/Results Medications: Active Medications Generic Name Dose Route Start Last Admin Trade Name Freq PRN Reason Stop Dose Admin Acetaminophen 650 mg 12/03/24 14:07 12/03/24 14:21 Acetaminophen 325 Mg Tablet PO 650 mg Q4H PRN Administration Headache Albuterol 2 puff 12/02/24 23:29 Albuterol Sulfate (*Sp) Aerosol 1 Puff INHALATION Q6HRT PRN shortness of breath or wheezing Albuterol 2.5 mg 12/04/24 12:00 12/07/24 15:54 Albuterol Sulfate Neb 2.5 Mg/3 Ml Inh INHALATION 2.5 mg Q4HRT BANG Administration Amoxicillin/Clavulanate Potassium 1 tablet 12/07/24 21:00 Amoxicillin/Clavulanate K 875-125 Mg Tab PO 12/12/24 09:01 Q12HR BANG Atorvastatin Calcium 40 mg 12/03/24 09:00 12/07/24 09:10 Atorvastatin 40 Mg Tablet PO 40 mg DAILY BANG Administration Diltiazem HCl 120 mg 12/04/24 09:00 12/07/24 09:10 Diltiazem Hcl Cd 120 Mg Cap.24hr PO 120 mg QAM BANG Administration Fentanyl Citrate 25 mcg 12/03/24 10:17 12/03/24 12:35 Fentanyl Citrate Inj (*Crx) 100 Mcg/2 Ml Vial IV PUSH 25 mcg Q2M PRN Administration Pain Fluticasone Propionate 1 spray 12/03/24 09:00 12/06/24 08:43 Fluticasone Propionate 0.05% Na Spr 16 Gm Btl (*Bkc) NASAL 1 spray DAILY BANG Administration Lactulose 20 gm 12/07/24 15:00 Lactulose 20 Gm/30 Ml Udc PO QAM BANG Metoprolol Tartrate 25 mg 12/05/24 09:00 12/07/24 09:09 Metoprolol Tartrate 25 Mg Tablet PO 25 mg Q12HR BANG Administration Ondansetron HCl 4 mg 12/03/24 06:23 12/03/24 06:33 Ondansetron Hcl Odt 4 Mg Tablet PO 4 mg Q6H PRN Administration Nausea And Vomiting Ondansetron HCl 4 mg 12/03/24 10:17 Ondansetron Inj 4 Mg/2 Ml Vial IV PUSH ONCE PRN Nausea Polyethylene Glycol 17 gm 12/07/24 12:35 Polyethylene Glycol 3350 17 Gm Powd.Pack PO QAM PRN Constipation Fluticasone/Salmeterol 2 puff 12/03/24 08:00 12/07/24 07:38 Fluticasone/Salmeterol 115-21 Mcg Inhaler 1 Puff INHALATION 2 puff Q12HRT BANG Administration Senna/Docusate Sodium 2 tab 12/07/24 17:25 Senna/Docusate Sodium Tablet PO BID BANG Tamsulosin HCl 0.4 mg 12/03/24 09:00 12/07/24 09:10 Tamsulosin Hcl 0.4 Mg Capsule PO 0.4 mg DAILY BANG Administration Radiology Results: ITS Impressions Abdomen/Pelvis CT 12/02/24 18:41 IMPRESSION: Bilateral hydroureteronephrosis without an obstructing calculus identified. Abnormal mural thickening within the posterior wall of the bladder for which a malignancy is suspected and for which direct visualization is recommended. Chest X-Ray 12/04/24 13:32 Impression: Diffuse pulmonary disease, suggestive of diffuse pulmonary edema and/or chronic interstitial disease. Correlate clinically. Minimal pleural effusions. Abdomen X-Ray 12/07/24 13:46 IMPRESSION: NO ACUTE ABDOMINAL FINDINGS. Constipation. Labs Labs: Laboratory Results - last 24 hr 12/03/24 12/07/24 16:40 05:53 WBC 9.1 RBC 3.51 L Hgb 12.0 L Hct 35.7 L MCV 101.7 H MCH 34.2 H MCHC 33.6 RDW 14.0 Plt Count 186 MPV 11.3 H Absolute Retic 0.05 Percent Retic 1.54 Immature Retic Fraction 13.9 Retic Hgb Content 36.4 Sodium 137 Potassium 3.6 Chloride 107 Carbon Dioxide 23 Anion Gap 7 BUN 26 H Creatinine 1.82 H Estim Creat Clear Calc 40 Estimated GFR 37 L Glucose 86 Calcium 8.3 L Total Bilirubin 0.7 AST 25 ALT 31 Alkaline Phosphatase 70 Total Protein 6.0 L Albumin 3.0 L Free PSA 2.6 % Free PSA 36 Total PSA 7.2 H Hospitalist MIPS Advance Care Plan I have confirmed that the patient's Advanced Care Plan is present, code status is documented, or surrogate decision maker is listed in patient medical record.: Yes Medication Reconciliation I have utilized all available resources to obtain, update and review the patients current medications (includes all prescriptions, OTC, herbals, cannabis, and nutritional supplements).: Yes
--- NOTE | 2024-12-07 19:35 | WPDONCPN ---
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 Further workup in the ER with CBC and CMP showed a creatinine of 12.7 and patient in acute renal failure. A CT scan of abdomen and pelvis without contrast was obtained which showed bilateral hydroureteronephrosis without stone. There was significant perinephric inflammation. There was mural wall thickening of the posterior wall of the bladder concerning for bladder cancer. Patient was seen by urology team and underwent cystoscopy on 12/03/2024. The cystoscopy showed very large dense solid neoplasm arising at the bladder neck and extending into the trigone more on the left than the right. The large section of mass was resected from the left hemanth trigone in attempt to find the left ureteral orifice but urologist was not able to identify left ureteral orifice. Right ureteral orifice was identified and a stent was placed. About 5-6 cm of the mass was resected via TURBT. Pathology is reported and is consistent with high-grade urothelial cancer with muscle invasion. Patient will need a appropriate staging scan but creatinine is too high to administer IV contrast for good CT of the chest abdomen and pelvis. If after proper staging scans there is no evidence of richard disease or metastasis then patient could be a candidate for bladder sparing treatment. This could include maximum TURBT by Urology followed by concurrent chemotherapy and radiation. Dr. Foster, urologist, also agrees with the plan. Recommendations are for IR guided left nephrostomy with internal stent to left ureter as an outpatient by IR followed by Maximum TURBT. At this time his creatinine has decreased from 12.7 at admission to 1.8 today, after urological intervention with right ureteral stent. We are hopeful that he may be candidate for cisplatin if renal function normalizes. I explained this to patient, his brother and his [id number] present at bedside on 12/04/2024 and in subsequent visit with the patient. At discharge he will be needing to see Dr. Friedman as an outpatient for suitable staging studies and treatment planning. He will also need to see radiation oncologist for their input as an outpatient. Hospitalist team to please provide Dr. Ivan nelson clinic information to patient with his discharge instructions. Subjective Date/time seen: 12/07/24 19:35 Interval history: Patient is resting comfortably on bed. States that he is staying over because he has not had a good bowel movement. He denies any abdominal pain and states that he is eating well and passing gas. Indwelling catheter in place. Review of Systems Review of Systems Patient reports that he feels much better than before. He is able to drain the urine through the catheter. He denies any fever, chills, night sweats. He denies any chest pain, shortness of breath, cough, hemoptysis. He denies any dizziness, lightheadedness. There has been difficulty passing bowels as well and patient said that he had to strain to pass the bowels. Rest of the 12 point review of system is negative Exam Narrative: General: Alert and oriented x3, ill-appearing male in no acute distress HEENT: EOMI, no scleral icterus, no gross abnormalities of the head noted CV: Regular rate and rhythm no murmur gallops or rubs RESP: Lungs clear to auscultation bilaterally Abdomen: Soft nontender nondistended bowel sounds present Neuro: No PHYSICIAN ANESTHESIOLOGIST deficit noted Objective Data Vital Signs Vital Signs: Vital Signs - 24 hr 12/06/24 19:57 12/06/24 20:07 12/06/24 20:08 Temperature Pulse Rate 92 92 Respiratory Rate 16 16 Blood Pressure Pulse Oximetry 94 Oxygen Delivery High Flow Nasal Cannula Oxygen Flow Rate 2 12/06/24 20:41 12/06/24 20:41 12/06/24 21:26 Temperature 36.2 C L Pulse Rate 88 67 Respiratory Rate 12 Blood Pressure 133/75 Pulse Oximetry 97 97 Oxygen Delivery High Flow Nasal Cannula Oxygen Flow Rate 2 12/07/24 00:18 12/07/24 00:24 12/07/24 05:35 Temperature 36.4 C L Pulse Rate 92 92 82 Respiratory Rate 16 16 14 Blood Pressure 125/70 Pulse Oximetry 96 Oxygen Delivery Oxygen Flow Rate 12/07/24 07:38 12/07/24 07:38 12/07/24 07:43 Temperature Pulse Rate 97 101 H Respiratory Rate 18 18 Blood Pressure Pulse Oximetry 96 Oxygen Delivery High Flow Nasal Cannula Oxygen Flow Rate 2 12/07/24 09:09 12/07/24 11:38 12/07/24 11:45 Temperature Pulse Rate 100 67 77 Respiratory Rate 18 18 Blood Pressure Pulse Oximetry Oxygen Delivery Oxygen Flow Rate 12/07/24 14:00 12/07/24 15:55 12/07/24 16:02 Temperature 36.6 C Pulse Rate 93 52 L 60 Respiratory Rate 20 18 18 Blood Pressure 113/68 Pulse Oximetry 96 Oxygen Delivery Oxygen Flow Rate Intake/Output Intake/Output: Intake & Output 12/04/24 12/05/24 12/06/24 12/07/24 23:59 23:59 23:59 23:59 Intake Total 1672.5 2019 1999 81 Output Total 4250 3350 3600 3650 [facility] -2577.5 -1330 -1600 -2837 Meds/Results Medications: Active Medications Generic Name Dose Route Start Last Admin Trade Name Freq PRN Reason Stop Dose Admin Acetaminophen 650 mg 12/03/24 14:07 12/03/24 14:21 Acetaminophen 325 Mg Tablet PO 650 mg Q4H PRN Administration Headache Albuterol 2 puff 12/02/24 23:29 Albuterol Sulfate (*Sp) Aerosol 1 Puff INHALATION Q6HRT PRN shortness of breath or wheezing Albuterol 2.5 mg 12/04/24 12:00 12/07/24 15:54 Albuterol Sulfate Neb 2.5 Mg/3 Ml Inh INHALATION 2.5 mg Q4HRT BANG Administration Amoxicillin/Clavulanate Potassium 1 tablet 12/07/24 21:00 Amoxicillin/Clavulanate K 875-125 Mg Tab PO 12/12/24 09:01 Q12HR BANG Atorvastatin Calcium 40 mg 12/03/24 09:00 12/07/24 09:10 Atorvastatin 40 Mg Tablet PO 40 mg DAILY BANG Administration Diltiazem HCl 120 mg 12/04/24 09:00 12/07/24 09:10 Diltiazem Hcl Cd 120 Mg Cap.24hr PO 120 mg QAM BANG Administration Fentanyl Citrate 25 mcg 12/03/24 10:17 12/03/24 12:35 Fentanyl Citrate Inj (*Crx) 100 Mcg/2 Ml Vial IV PUSH 25 mcg Q2M PRN Administration Pain Fluticasone Propionate 1 spray 12/03/24 09:00 12/07/24 09:10 Fluticasone Propionate 0.05% Na Spr 16 Gm Btl (*Bkc) NASAL 1 spray DAILY BANG Administration Lactulose 20 gm 12/07/24 15:00 12/07/24 18:47 Lactulose 20 Gm/30 Ml Udc PO Not Given QAM [facility] Metoprolol Tartrate 25 mg 12/05/24 09:00 12/07/24 09:09 Metoprolol Tartrate 25 Mg Tablet PO 25 mg Q12HR BANG Administration Ondansetron HCl 4 mg 12/03/24 06:23 12/03/24 06:33 Ondansetron Hcl Odt 4 Mg Tablet PO 4 mg Q6H PRN Administration Nausea And Vomiting Ondansetron HCl 4 mg 12/03/24 10:17 Ondansetron Inj 4 Mg/2 Ml Vial IV PUSH ONCE PRN Nausea Polyethylene Glycol 17 gm 12/07/24 12:35 Polyethylene Glycol 3350 17 Gm Powd.Pack PO QAM PRN Constipation Fluticasone/Salmeterol 2 puff 12/03/24 08:00 12/07/24 07:38 Fluticasone/Salmeterol 115-21 Mcg Inhaler 1 Puff INHALATION 2 puff Q12HRT BANG Administration Senna/Docusate Sodium 2 tab 12/07/24 17:25 12/07/24 17:30 Senna/Docusate Sodium Tablet PO 2 tab BID BANG Administration Tamsulosin HCl 0.4 mg 12/03/24 09:00 12/07/24 09:10 Tamsulosin Hcl 0.4 Mg Capsule PO 0.4 mg DAILY BANG Administration Radiology Results: ITS Impressions Abdomen/Pelvis CT 12/02/24 18:41 IMPRESSION: Bilateral hydroureteronephrosis without an obstructing calculus identified. Abnormal mural thickening within the posterior wall of the bladder for which a malignancy is suspected and for which direct visualization is recommended. Chest X-Ray 12/04/24 13:32 Impression: Diffuse pulmonary disease, suggestive of diffuse pulmonary edema and/or chronic interstitial disease. Correlate clinically. Minimal pleural effusions. Abdomen X-Ray 12/07/24 13:46 IMPRESSION: NO ACUTE ABDOMINAL FINDINGS. Constipation. Labs Labs: Laboratory Results - last 24 hr 12/03/24 12/07/24 16:40 05:53 WBC 9.1 RBC 3.51 L Hgb 12.0 L Hct 35.7 L MCV 101.7 H MCH 34.2 H MCHC 33.6 RDW 14.0 Plt Count 186 MPV 11.3 H Absolute Retic 0.05 Percent Retic 1.54 Immature Retic Fraction 13.9 Retic Hgb Content 36.4 Sodium 137 Potassium 3.6 Chloride 107 Carbon Dioxide 23 Anion Gap 7 BUN 26 H Creatinine 1.82 H Estim Creat Clear Calc 40 Estimated GFR 37 L Glucose 86 Calcium 8.3 L Total Bilirubin 0.7 AST 25 ALT 31 Alkaline Phosphatase 70 Total Protein 6.0 L Albumin 3.0 L Free PSA 2.6 % Free PSA 36 Total PSA 7.2 H
[2024-12-07] MEDS: AMOXICILLIN/CLAVULANATE K 875-125 MG TAB 1 TABLET PO (21:20)
[2024-12-08] VITALS (17 sets, daily range): BP systolic 102–112; BP diastolic 61–74; PULSE 53–114; RESP 16–18; TEMP 36.1–37.2; O2SAT 94–96
[2024-12-08] MEDS: ALBUTEROL SULFATE NEB 2.5 MG/3 ML INH INHALATION ×3 (00:49→07:25)
--- NOTE | 2024-12-08 00:49 | PCRCNOTE ---
Pt's 0000 treatment was omitted due to prioritization of emergent patient care needs in the ED
[2024-12-08 03:44] LABS: Protein, Total 6.5 g/dL (6.1-8.1)
--- NOTE | 2024-12-08 04:00 | PCRCNOTE ---
Pt sleeping, at 1999 tx, stated he would call if treatment was needed.
--- NOTE | 2024-12-08 06:26 | P.PNUR_ITS ---
Progress Note: A&P Assessment and Plan (1) Hydroureteronephrosis: Code(s): N13.30 - Unspecified hydronephrosis Status: Acute (2) Acute renal failure: Qualifiers: Acute renal failure type: unspecified Qualified Code(s): N17.9 - Acute kidney failure, unspecified Code(s): N17.9 - Acute kidney failure, unspecified Status: Acute (3) Mass of bladder: Code(s): N32.89 - Other specified disorders of bladder Status: Acute Assessment and Plan: * Dr. Preston input noted. Chemoradiation for probable bladder cancer a viable option, barring metastatic disease when staging completed. * Will need left nephrostomy with internalizations left uretal stent but radiologists wanted 7 days off ASA if possible (putting this off until or later). * Will then need aggressive TURBT. * Tentative plans: I'll see if I can arrange intervention radiologist to simultaneously place nephrostomy and nephrostent as outpatient later this week/early next week - followed by staging and aggressive TURBT later next week. 12/08/24 * Plans as above * Anticipated discharge yesterday cancelled. * Will remove catheter for voiding trial today. Subjective Subjective Date/Time Seen: 12/08/24 06:26 Interval history: Resting/comfortable Review of Systems Review of Systems: All systems reviewed & are unremarkable except as noted in HPI and below Exam Const: General: no acute distress Resp: Effort & Inspection: normal respiratory effort GI: Inspection: non-distended GI Palp: No abdominal tenderness and No Guarding due to palpation present (GI) Auscultation: normal bowel sounds Objective Data Vital Signs Vital Signs: Vital Signs - 24 hr 12/07/24 07:38 12/07/24 07:38 12/07/24 07:43 Temperature Pulse Rate 97 101 H Respiratory Rate 18 18 Blood Pressure Pulse Oximetry 96 Oxygen Delivery High Flow Nasal Cannula Oxygen Flow Rate 2 12/07/24 09:09 12/07/24 11:38 12/07/24 11:45 Temperature Pulse Rate 100 67 77 Respiratory Rate 18 18 Blood Pressure Pulse Oximetry Oxygen Delivery Oxygen Flow Rate 12/07/24 14:00 12/07/24 15:55 12/07/24 16:02 Temperature 97.9 F Pulse Rate 93 52 L 60 Respiratory Rate 20 18 18 Blood Pressure 113/68 Pulse Oximetry 96 Oxygen Delivery Oxygen Flow Rate 12/07/24 20:07 12/07/24 20:16 12/07/24 20:21 Temperature Pulse Rate 83 83 Respiratory Rate 18 18 Blood Pressure Pulse Oximetry 98 Oxygen Delivery Room Air Oxygen Flow Rate 12/07/24 21:20 12/07/24 21:21 12/07/24 21:36 Temperature 98.3 F Pulse Rate 96 88 Respiratory Rate 20 Blood Pressure 125/76 Pulse Oximetry 99 Oxygen Delivery Room Air Oxygen Flow Rate 12/08/24 05:29 Temperature 98.3 F Pulse Rate 77 Respiratory Rate 16 Blood Pressure 110/74 Pulse Oximetry 95 Oxygen Delivery Oxygen Flow Rate Intake/Output Intake/Output: Intake & Output 12/05/24 12/06/24 12/07/24 12/08/24 23:59 23:59 23:59 23:59 Intake Total 2019 1999 813 300 Output Total 3350 3600 3650 1128 Iedjmpp -2223 -2140 -0087 -9456 Meds/Results Medications: Active Medications Generic Name Dose Route Start Last Admin Trade Name Freq PRN Reason Stop Dose Admin Acetaminophen 650 mg 12/03/24 14:07 12/03/24 14:21 Acetaminophen 325 Mg Tablet PO 650 mg Q4H PRN Administration Headache Albuterol 2 puff 12/02/24 23:29 Albuterol Sulfate (*Sp) Aerosol 1 Puff INHALATION Q6HRT PRN shortness of breath or wheezing Albuterol 2.5 mg 12/04/24 12:00 12/08/24 03:59 Albuterol Sulfate Neb 2.5 Mg/3 Ml Inh INHALATION 2.5 mg Q4HRT BANG Administration Amoxicillin/Clavulanate Potassium 1 tablet 12/07/24 21:00 12/07/24 21:20 Amoxicillin/Clavulanate K 875-125 Mg Tab PO 12/12/24 09:01 1 tablet Q12HR BANG Administration Atorvastatin Calcium 40 mg 12/03/24 09:00 12/07/24 09:10 Atorvastatin 40 Mg Tablet PO 40 mg DAILY BANG Administration Diltiazem HCl 120 mg 12/04/24 09:00 12/07/24 09:10 Diltiazem Hcl Cd 120 Mg Cap.24hr PO 120 mg QAM BANG Administration Fentanyl Citrate 25 mcg 12/03/24 10:17 12/03/24 12:35 Fentanyl Citrate Inj (*Crx) 100 Mcg/2 Ml Vial IV PUSH 25 mcg Q2M PRN Administration Pain Fluticasone Propionate 1 spray 12/03/24 09:00 12/07/24 09:10 Fluticasone Propionate 0.05% Na Spr 16 Gm Btl (*Bkc) NASAL 1 spray DAILY BANG Administration Lactulose 20 gm 12/07/24 15:00 12/07/24 18:47 Lactulose 20 Gm/30 Ml Udc PO Not Given QAM BANG Metoprolol Tartrate 25 mg 12/05/24 09:00 12/07/24 21:21 Metoprolol Tartrate 25 Mg Tablet PO 25 mg Q12HR BANG Administration Ondansetron HCl 4 mg 12/03/24 06:23 12/03/24 06:33 Ondansetron Hcl Odt 4 Mg Tablet PO 4 mg Q6H PRN Administration Nausea And Vomiting Ondansetron HCl 4 mg 12/03/24 10:17 Ondansetron Inj 4 Mg/2 Ml Vial IV PUSH ONCE PRN Nausea Polyethylene Glycol 17 gm 12/07/24 12:35 Polyethylene Glycol 3350 17 Gm Powd.Pack PO QAM PRN Constipation Fluticasone/Salmeterol 2 puff 12/03/24 08:00 12/07/24 20:18 Fluticasone/Salmeterol 115-21 Mcg Inhaler 1 Puff INHALATION 2 puff Q12HRT BANG Administration Senna/Docusate Sodium 2 tab 12/07/24 17:25 12/07/24 17:30 Senna/Docusate Sodium Tablet PO 2 tab BID BANG Administration Tamsulosin HCl 0.4 mg 12/03/24 09:00 12/07/24 09:10 Tamsulosin Hcl 0.4 Mg Capsule PO 0.4 mg DAILY BANG Administration Radiology Results: ITS Impressions Abdomen/Pelvis CT 12/02/24 18:41 IMPRESSION: Bilateral hydroureteronephrosis without an obstructing calculus identified. Abnormal mural thickening within the posterior wall of the bladder for which a malignancy is suspected and for which direct visualization is recommended. Chest X-Ray 12/04/24 13:32 Impression: Diffuse pulmonary disease, suggestive of diffuse pulmonary edema and/or chronic interstitial disease. Correlate clinically. Minimal pleural effusions. Abdomen X-Ray 12/07/24 13:46 IMPRESSION: NO ACUTE ABDOMINAL FINDINGS. Constipation. Labs Labs: Laboratory Results - last 24 hr 12/03/24 12/06/24 12/07/24 16:40 18:04 05:53 Absolute Retic 0.05 Percent Retic 1.54 Immature Retic Fraction 13.9 Retic Hgb Content 36.4 Total Protein 6.5 Free PSA 2.6 % Free PSA 36 Total PSA 7.2 H
[2024-12-08 06:34] LABS: Basophils Percent Auto 0.3 % (0.2-1.2); Eosinophils Absolute Auto 0.4 K/mm3 (0-0.3); Eosinophils Percent Auto 4.1 % (0-4.4); Hematocrit 37.1 % (42.0-52.0); Hemoglobin 12.1 g/dL (14.0-18.0); Immature Granulocyte Absolute 0.11 K/mm3 (0.00-0.031); Immature Granulocyte Percent A 1.2 % (0-0.5); Lymphocytes Absolute Auto 1.43 K/mm3 (0.9-3.2); Lymphocytes Percent Auto 15.5 % (18.3-44.2); Mean Corpuscular HGB Conc 32.6 g/dl (32-36); Mean Corpuscular Hemoglobin 33.6 pg (26-34); Mean Corpuscular Volume 103.1 fl (80-100); Mean Platelet Volume 11.5 fl (7.4-10.4); Monocytes Absolute Auto 1.4 K/mm3 (0.1-0.6); Monocytes Percent Auto 15.1 % (2.6-8.5); Neutrophils Absolute Auto 5.9 K/mm3 (1.3-6.7); Neutrophils Percent Auto 63.8 % (45.5-73.1); Platelet Count Result 204 k/mm3 (150-375); Red Cell Distribution Width 13.9 % (11.5-14.5); White Blood Count 9.2 K/mm3 (4.5-10.0)
[2024-12-08 06:46] LABS: Albumin Level 3.1 g/dL (3.5-5.1); Anion Gap 8 mmol/L (4-12); Blood Urea Nitrogen 28 mg/dL (9-20); Calcium 8.4 mg/dL (8.4-10.2); Carbon Dioxide 21 mmol/L (22-30); Chloride 107 mmol/L (98-107); Estimated CRCL calculation 42 ml/min; Estimated Glomerular Filt Rate 39; Glucose 88 mg/dL (65-110); Phosphorus 3.6 mg/dL (2.5-4.5); Potassium 3.5 mmol/L (3.4-5.0); Sodium 136 mmol/L (137-145)
[2024-12-08 07:18] LABS: Haptoglobin 256 mg/dL (43-212)
[2024-12-08] MEDS: FLUTICASONE/SALMETEROL 115-21 MCG INHALER 1 PUFF 2 PUFF INHALATION ×2 (07:25→19:56)
[2024-12-08] MEDS: ATORVASTATIN 40 MG TABLET PO (09:02)
[2024-12-08] MEDS: METOPROLOL TARTRATE 25 MG TABLET PO ×3 (09:02→23:43)
[2024-12-08] MEDS: SENNA/DOCUSATE SODIUM TABLET 2 TAB PO ×2 (09:02→16:10)
[2024-12-08] MEDS: polyethylene glycoL 3350 17 GM POWD.PACK PO (09:02)
[2024-12-08] MEDS: TAMSULOSIN HCL 0.4 MG CAPSULE PO (09:02)
[2024-12-08] MEDS: AMOXICILLIN/CLAVULANATE K 875-125 MG TAB 1 TABLET PO ×2 (09:03→20:37)
[2024-12-08] MEDS: dilTIAZem HCL CD 120 MG CAP.24HR PO (09:03)
[2024-12-08] MEDS: FLUTICASONE PROPIONATE 0.05% NA SPR 16 GM BTL (*BKC) 1 SPRAY NASAL (09:20)
--- NOTE | 2024-12-08 11:20 | P.PNNP_ITS ---
Progress Note: A&P Assessment and Plan (1) Acute kidney injury: Code(s): N17.9 - Acute kidney failure, unspecified Status: Acute Assessment and Plan: * ongoing improvement noted * presumed to be secondary to obstructive uropathy * significant improvement with right ureteral stent placement * intervention with left kidney to be needed as well (see #2) * follow trend of repeat labs and UOP (2) Hydroureteronephrosis: Code(s): N13.30 - Unspecified hydronephrosis Status: Acute Assessment and Plan: * bilateral and as noted on admission CT of abdomen/pelvis * Urology following: * s/p cystoscopy, right retrograde pyelography and right ureteral stent placement and TURBT * attempted left ureteral stent placement (but unable to locate left ureteral orifice) * will likely need placement of a left percutaneous nephrostomy tube with eventual internalization of ureteral stent (3) Hyperkalemia: Code(s): E87.5 - Hyperkalemia Status: Acute Assessment and Plan: * resolving/resolved * due to #1 and #2 * s/p medical management * follow trend of K+ (4) Metabolic acidosis: Code(s): E87.20 - Acidosis, unspecified Status: Acute Assessment and Plan: * resolving/resolved * due to HOANG/ARF * s/p a few dose of oral sodium bicarbonate for compensation * follow CO2 levels (5) Hypoxia: Code(s): R09.02 - Hypoxemia Status: Acute Assessment and Plan: * improving * as noted since afternoon of 12/03 * supplemental oxygen being weaned * CXR with evidence of pleural effusions and congestion * however, previous imaging (CT of chest in 2023) notes evidence of emphysema as well.. * post-obstructive diuresis ongoing * Echo (on 12/03) noted: * left ventricular systolic function is normal, estimated at 55-60% * left ventricular diastolic function is normal * mitral valve has mildly calcified annulus * mild mitral valve regurgitation * mild pulmonary hypertension, estimated pulmonary arterial systolic pressure is 42 mmHg * follow respiratory status (6) Atrial fibrillation with RVR: Code(s): I48.91 - Unspecified atrial fibrillation Status: Acute Assessment and Plan: * rate control strategy * on diltiazem and metoprolol * Cardiology following (7) Acute UTI: Code(s): N39.0 - Urinary tract infection, site not specified Status: Acute Assessment and Plan: * admission UA suggestive * however, urine culture was not done * on antibiotics (8) Mass of bladder: Code(s): N32.89 - Other specified disorders of bladder Status: Acute Assessment and Plan: * s/p TURBT * 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 L Subjective Date/time seen: 12/08/24 11:20 Interval history: Follow-up for acute kidney injury/acute renal failure. Still has not had a significant bowel movement as of yet but does not appear in any distress; renal function/creatinine continues to slowly improve; no other issues/events overnight or earlier this morning. Exam 2 Narrative: General: elderly but WD/WN male in NAD Heart: normal S1 and S2; no rub Lungs: coarse breath sounds Abdomen: soft, nontender, nondistended, positive bowel sounds Extremities: no cyanosis or clubbing; no edema Skin: no rash Objective Data Vital Signs Vital Signs: Vital Signs Temp Pulse Resp BP Pulse Ox O2 Del Method 12/08/24 09:02 92 12/08/24 07:37 96 Room Air 12/08/24 07:36 90 16 12/08/24 07:29 53 L 16 12/08/24 05:29 98.3 F 77 16 110/74 95 12/07/24 21:36 98.3 F 88 20 125/76 99 12/07/24 21:21 96 12/07/24 21:20 Room Air 12/07/24 20:21 83 18 12/07/24 20:16 98 Room Air 12/07/24 20:07 83 18 12/07/24 16:02 60 18 12/07/24 15:55 52 L 18 12/07/24 14:00 97.9 F 93 20 113/68 96 Intake/Output Intake/Output: Intake & Output 12/05/24 12/06/24 12/07/24 12/08/24 23:59 23:59 23:59 23:59 Intake Total 2019 1999 813 540 Output Total 3350 3600 3650 1800 Hdmrynq -1951 -1403 -2837 -6290 Meds/Results Medications: Active Medications Generic Name Dose Route Start Last Admin Trade Name Freq PRN Reason Stop Dose Admin Acetaminophen 650 mg 12/03/24 14:07 12/03/24 14:21 Acetaminophen 325 Mg Tablet PO 650 mg Q4H PRN Administration Headache Albuterol 2 puff 12/02/24 23:29 Albuterol Sulfate (*Sp) Aerosol 1 Puff INHALATION Q6HRT PRN shortness of breath or wheezing Albuterol 2.5 mg 12/04/24 12:00 12/08/24 13:50 Albuterol Sulfate Neb 2.5 Mg/3 Ml Inh INHALATION Not Given Q4HRT BANG Amoxicillin/Clavulanate Potassium 1 tablet 12/07/24 21:00 12/08/24 09:03 Amoxicillin/Clavulanate K 875-125 Mg Tab PO 12/12/24 09:01 1 tablet Q12HR BANG Administration Atorvastatin Calcium 40 mg 12/03/24 09:00 12/08/24 09:02 Atorvastatin 40 Mg Tablet PO 40 mg DAILY BANG Administration Diltiazem HCl 120 mg 12/04/24 09:00 12/08/24 09:03 Diltiazem Hcl Cd 120 Mg Cap.24hr PO 120 mg QAM BANG Administration Fentanyl Citrate 25 mcg 12/03/24 10:17 12/03/24 12:35 Fentanyl Citrate Inj (*Crx) 100 Mcg/2 Ml Vial IV PUSH 25 mcg Q2M PRN Administration Pain Fluticasone Propionate 1 spray 12/03/24 09:00 12/07/24 09:10 Fluticasone Propionate 0.05% Na Spr 16 Gm Btl (*Bkc) NASAL 1 spray DAILY BANG Administration Lactulose 20 gm 12/07/24 15:00 12/07/24 18:47 Lactulose 20 Gm/30 Ml Udc PO Not Given QAM BANG Metoprolol Tartrate 25 mg 12/05/24 09:00 12/08/24 09:02 Metoprolol Tartrate 25 Mg Tablet PO 25 mg Q12HR BANG Administration Ondansetron HCl 4 mg 12/03/24 06:23 12/03/24 06:33 Ondansetron Hcl Odt 4 Mg Tablet PO 4 mg Q6H PRN Administration Nausea And Vomiting Ondansetron HCl 4 mg 12/03/24 10:17 Ondansetron Inj 4 Mg/2 Ml Vial IV PUSH ONCE PRN Nausea Polyethylene Glycol 17 gm 12/07/24 12:35 12/08/24 09:02 Polyethylene Glycol 3350 17 Gm Powd.Pack PO 17 gm QAM PRN Administration Constipation Fluticasone/Salmeterol 2 puff 12/03/24 08:00 12/08/24 07:25 Fluticasone/Salmeterol 115-21 Mcg Inhaler 1 Puff INHALATION 2 puff Q12HRT BANG Administration Senna/Docusate Sodium 2 tab 12/07/24 17:25 12/08/24 09:02 Senna/Docusate Sodium Tablet PO 2 tab BID BANG Administration Tamsulosin HCl 0.4 mg 12/03/24 09:00 12/08/24 09:02 Tamsulosin Hcl 0.4 Mg Capsule PO 0.4 mg DAILY BANG Administration Radiology Results: ITS Impressions Abdomen/Pelvis CT 12/02/24 18:41 IMPRESSION: Bilateral hydroureteronephrosis without an obstructing calculus identified. Abnormal mural thickening within the posterior wall of the bladder for which a malignancy is suspected and for which direct visualization is recommended. Chest X-Ray 12/04/24 13:32 Impression: Diffuse pulmonary disease, suggestive of diffuse pulmonary edema and/or chronic interstitial disease. Correlate clinically. Minimal pleural effusions. Abdomen X-Ray 12/07/24 13:46 IMPRESSION: NO ACUTE ABDOMINAL FINDINGS. Constipation. Labs Labs: Laboratory Tests 12/08/24 05:53 12/08/24 05:53 Calcium 8.4 Phosphorus 3.6 Albumin 3.1 L Microbiology 12/02/24 21:26 Blood Blood Culture - Final 12/02/24 21:42 Blood Blood Culture - Final
[2024-12-08 13:09] LABS: Kappa\\Lambda Light Chains 1.46 (0.26-1.65); Lambda Light Chain 42.4 mg/L (5.7-26.3)
[2024-12-08 13:54] LABS: Testosterone Free 28.3 pg/mL (35.0-155.0); Testosterone Total 187 ng/dL (250-1100)
[2024-12-08] MEDS: LACTULOSE 20 GM/30 ML UDC PO ×6 (14:15→23:43)
--- NOTE | 2024-12-08 14:18 | P.PNONC_ITS ---
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 Further workup in the ER with CBC and CMP showed a creatinine of 12.7 and patient in acute renal failure. A CT scan of abdomen and pelvis without contrast was obtained which showed bilateral hydroureteronephrosis without stone. There was significant perinephric inflammation. There was mural wall thickening of the posterior wall of the bladder concerning for bladder cancer. Patient was seen by urology team and underwent cystoscopy on 12/03/2024. The cystoscopy showed very large dense solid neoplasm arising at the bladder neck and extending into the trigone more on the left than the right. The large section of mass was resected from the left hemanth trigone in attempt to find the left ureteral orifice but urologist was not able to identify left ureteral orifice. Right ureteral orifice was identified and a stent was placed. About 5-6 cm of the mass was resected via TURBT. Pathology is reported and is consistent with high-grade urothelial cancer with muscle invasion. Patient will need a appropriate staging scan but creatinine is too high to administer IV contrast for good CT of the chest abdomen and pelvis. If after proper staging scans there is no evidence of richard disease or metastasis then patient could be a candidate for bladder sparing treatment. This could include maximum TURBT by Urology followed by concurrent chemotherapy and radiation. Dr. Foster, urologist, also agrees with the plan. Recommendations are for IR guided left nephrostomy with internal stent to left ureter as an outpatient by IR followed by Maximum TURBT. At this time his creatinine has decreased from 12.7 at admission to 1.75 today, after urological intervention with right ureteral stent. I am hopeful that he could be a candidate for cisplatin if renal function normalizes. I explained this to patient, his brother and his [id number] present at bedside on 12/04/2024 and in subsequent visit with the patient. At discharge he will be needing to see Dr. Friedman as an outpatient for suitable staging studies and treatment planning. He will also need to see radiation oncologist for their input as an outpatient. Hospitalist team to please provide Dr. Friedman clinic information to patient with his discharge instructions. Constipation- Patient has constipation with no significant bowel movement for past 10 days. Patient was started on MiraLax few days back and stool softener and laxative is also added. A KUB was done yesterday 12/07/2024 which showed constipation. I asked the nursing staff to give lactulose to stop is to get the bowel movement. From Oncology perspective he can leave after he has a good bowel movement. Subjective Date/time seen: 12/08/24 14:18 Interval history: Patient is resting comfortably on the bed. Urinary catheter was removed early this morning for voiding trials. Patient had urinated some on his own. Patient reports that he has not had a bowel movement for past 10 days. He was started on stool softeners MiraLax and stimulants and only had very hard pellets of stool. Review of Systems Review of Systems Patient reports that he feels much better than before. He is able to drain the urine through the catheter. He denies any fever, chills, night sweats. He denies any chest pain, shortness of breath, cough, hemoptysis. He denies any dizziness, lightheadedness. There has been difficulty passing bowels as well and patient said that he had to strain to pass the bowels. 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 Objective Data Vital Signs Vital Signs: Vital Signs - 24 hr 12/07/24 15:55 12/07/24 16:02 12/07/24 20:07 Temperature Pulse Rate 52 L 60 83 Respiratory Rate 18 18 18 Blood Pressure Pulse Oximetry Oxygen Delivery 12/07/24 20:16 12/07/24 20:21 12/07/24 21:20 Temperature Pulse Rate 83 Respiratory Rate 18 Blood Pressure Pulse Oximetry 98 Oxygen Delivery Room Air Room Air 12/07/24 21:21 12/07/24 21:36 12/08/24 05:29 Temperature 36.8 C 36.8 C Pulse Rate 96 88 77 Respiratory Rate 20 16 Blood Pressure 125/76 110/74 Pulse Oximetry 99 95 Oxygen Delivery 12/08/24 07:29 12/08/24 07:36 12/08/24 07:37 Temperature Pulse Rate 53 L 90 Respiratory Rate 16 16 Blood Pressure Pulse Oximetry 96 Oxygen Delivery Room Air 12/08/24 09:02 12/08/24 14:00 Temperature 36.1 C L Pulse Rate 92 80 Respiratory Rate 18 Blood Pressure 105/72 Pulse Oximetry 95 Oxygen Delivery Intake/Output Intake/Output: Intake & Output 12/05/24 12/06/24 12/07/24 12/08/24 23:59 23:59 23:59 23:59 Intake Total 2019 1999 81 780 Output Total 335 3600 8950 9813 Omr[place]c -8020 -4625 -2837 -1020 Meds/Results Medications: Active Medications Generic Name Dose Route Start Last Admin Trade Name Freq PRN Reason Stop Dose Admin Acetaminophen 650 mg 12/03/24 14:07 12/03/24 14:21 Acetaminophen 325 Mg Tablet PO 650 mg Q4H PRN Administration Headache Albuterol 2 puff 12/02/24 23:29 Albuterol Sulfate (*Sp) Aerosol 1 Puff INHALATION Q6HRT PRN shortness of breath or wheezing Albuterol 2.5 mg 12/04/24 12:00 12/08/24 13:50 Albuterol Sulfate Neb 2.5 Mg/3 Ml Inh INHALATION Not Given Q4HRT BANG Amoxicillin/Clavulanate Potassium 1 tablet 12/07/24 21:00 12/08/24 09:03 Amoxicillin/Clavulanate K 875-125 Mg Tab PO 12/12/24 09:01 1 tablet Q12HR BANG Administration Atorvastatin Calcium 40 mg 12/03/24 09:00 12/08/24 09:02 Atorvastatin 40 Mg Tablet PO 40 mg DAILY BANG Administration Diltiazem HCl 120 mg 12/04/24 09:00 12/08/24 09:03 Diltiazem Hcl Cd 120 Mg Cap.24hr PO 120 mg QAM BANG Administration Fentanyl Citrate 25 mcg 12/03/24 10:17 12/03/24 12:35 Fentanyl Citrate Inj (*Crx) 100 Mcg/2 Ml Vial IV PUSH 25 mcg Q2M PRN Administration Pain Fluticasone Propionate 1 spray 12/03/24 09:00 12/07/24 09:10 Fluticasone Propionate 0.05% Na Spr 16 Gm Btl (*Bkc) NASAL 1 spray DAILY BANG Administration Lactulose 20 gm 12/08/24 14:10 Lactulose 20 Gm/30 Ml Udc PO Q2HR [facility] Metoprolol Tartrate 25 mg/ 37.5 mg 12/08/24 21:00 Metoprolol Tartrate 12.5 mg PO Q12HR [facility] Ondansetron HCl 4 mg 12/03/24 06:23 12/03/24 06:33 Ondansetron Hcl Odt 4 Mg Tablet PO 4 mg Q6H PRN Administration Nausea And Vomiting Ondansetron HCl 4 mg 12/03/24 10:17 Ondansetron Inj 4 Mg/2 Ml Vial IV PUSH ONCE PRN Nausea Polyethylene Glycol 17 gm 12/07/24 12:35 12/08/24 09:02 Polyethylene Glycol 3350 17 Gm Powd.Pack PO 17 gm QAM PRN Administration Constipation Fluticasone/Salmeterol 2 puff 12/03/24 08:00 12/08/24 07:25 Fluticasone/Salmeterol 115-21 Mcg Inhaler 1 Puff INHALATION 2 puff Q12HRT BANG Administration Senna/Docusate Sodium 2 tab 12/07/24 17:25 12/08/24 09:02 Senna/Docusate Sodium Tablet PO 2 tab BID BANG Administration Tamsulosin HCl 0.4 mg 12/03/24 09:00 12/08/24 09:02 Tamsulosin Hcl 0.4 Mg Capsule PO 0.4 mg DAILY BANG Administration Radiology Results: ITS Impressions Abdomen/Pelvis CT 12/02/24 18:41 IMPRESSION: Bilateral hydroureteronephrosis without an obstructing calculus identified. Abnormal mural thickening within the posterior wall of the bladder for which a malignancy is suspected and for which direct visualization is recommended. Chest X-Ray 12/04/24 13:32 Impression: Diffuse pulmonary disease, suggestive of diffuse pulmonary edema and/or chronic interstitial disease. Correlate clinically. Minimal pleural effusions. Abdomen X-Ray 12/07/24 13:46 IMPRESSION: NO ACUTE ABDOMINAL FINDINGS. Constipation. Labs Labs: Laboratory Results - last 24 hr 12/03/24 12/06/24 12/07/24 16:40 18:04 05:53 WBC RBC Hgb Hct MCV MCH MCHC RDW Plt Count MPV Immature Gran % (Auto) Neut % (Auto) Lymph % (Auto) [place] % (Auto) Eos % (Auto) Baso % (Auto) Lymph # (Auto) [place] # (Auto) Eos # (Auto) Baso # (Auto) Abs Immat Gran (auto) Absolute Neuts (auto) Absolute Nucleated RBC Nucleated RBC % Haptoglobin 256 H Sodium Potassium Chloride Carbon Dioxide Anion Gap BUN Creatinine Estim Creat Clear Calc Estimated GFR Glucose Calcium Phosphorus Total Protein 6.5 Albumin Free PSA 2.6 % Free PSA 36 Total PSA 7.2 H Total Testosterone 187 L Free Testosterone 28.3 L [place]/Lambda Ratio 1.46 Free [place] Light Chains 62.1 H Free [place] Light Chain 42.4 H 12/08/24 05:53 WBC 9.2 RBC 3.60 L Hgb 12.1 L Hct 37.1 L MCV 103.1 H MCH 33.6 MCHC 32.6 RDW 13.9 Plt Count 204 MPV 11.5 H Immature Gran % (Auto) 1.2 H Neut % (Auto) 63.8 Lymph % (Auto) 15.5 L [place] % (Auto) 15.1 H Eos % (Auto) 4.1 Baso % (Auto) 0.3 Lymph # (Auto) 1.43 [place] # (Auto) 1.4 H Eos # (Auto) 0.4 H Baso # (Auto) 0.0 Abs Immat Gran (auto) 0.11 H Absolute Neuts (auto) 5.9 Absolute Nucleated RBC 0.000 Nucleated RBC % 0.0 Haptoglobin Sodium 136 L Potassium 3.5 Chloride 107 Carbon Dioxide 21 L Anion Gap 8 BUN 28 H Creatinine 1.75 H Estim Creat Clear Calc 42 Estimated GFR 39 L Glucose 88 Calcium 8.4 Phosphorus 3.6 Total Protein Albumin 3.1 L Free PSA % Free PSA Total PSA Total Testosterone Free Testosterone [place]/Lambda Ratio Free [place] Light Chains Free Lambda Light Chain
--- NOTE | 2024-12-08 15:53 | P.PNIM_ITS ---
Progress Note: A&P Assessment and Plan (1) Atrial fibrillation with RVR: Code(s): I48.91 - Unspecified atrial fibrillation Status: Acute Assessment and Plan: Continue Metoprolol Tartrate 25 mg PO q 6hr Diltiazem 60mg PO q hr (2) Hydroureteronephrosis: Code(s): N13.30 - Unspecified hydronephrosis Status: Acute Assessment and Plan: Urology was consulted and he underwent Cystoscopy, right retrograde pyelography and right ureteral stent placement. Attempted left ureteral stent placement. TURBT (large, 5-6cm) (3) Acute hyperkalemia: Code(s): E87.5 - Hyperkalemia Status: Acute Assessment and Plan: Given Lokelma and Albuterol (4) Acute renal failure: Qualifiers: Acute renal failure type: unspecified Qualified Code(s): N17.9 - Acute kidney failure, unspecified Code(s): N17.9 - Acute kidney failure, unspecified Status: Acute Assessment and Plan: Nephrology following Cr 1.75 from 12. Possible post renal s/p cystoscopy with right retrograde pyelography and right ureteral stent placement. For left nephrostomy outpatient (failed cannulation during cystoscopy) TURBT (large, 5-6cm) (5) Bladder wall thickening: Code(s): N32.89 - Other specified disorders of bladder Status: Acute Assessment and Plan: ass above (6) Acute UTI: Code(s): N39.0 - Urinary tract infection, site not specified Status: Acute Assessment and Plan: Continue Ceftriaxone (7) Bladder cancer: Code(s): C67.9 - Malignant neoplasm of bladder, unspecified Status: Acute Assessment and Plan: Biopsy shows Invasive Urothelial Carcinoma,high grade Will follow with urology and oncology outpatient urology and oncology following (8) Constipation: Code(s): K59.00 - Constipation, unspecified Status: Acute Assessment and Plan: Reviewed KUB Started on Miralax and Senakot repeat fleet enema Plan DVT prophylaxis on Sq Lovenox Possible discharge tomorrow Subjective Date/time seen: 12/08/24 15:53 Interval history: Comfortable at bedside nurse noted patient had little bowel movement yesterday, continue lactulose and enema HR elevated in the 120, increased metoprolol to 37.5mg bid monitor one more day Review of Systems Review of Systems: All systems reviewed & are unremarkable except as noted in HPI and below (HPI) Exam Narrative: GENERAL APPEARANCE: well developed well nourished male in no acute distress HEENT: normocephalic, atraumatic, normal conjunctiva and sclera, nares patient NECK: no lymphadenopathy, thyromegaly, or JVD MOUTH: normal lips, teeth, and gums CARDIOVASCULAR: RRR, normal S1 and S2, no rub RESPIRATORY: clear to auscultation bilaterally ABDOMEN: soft, nontender, nondistended, positive bowel sounds present EXTREMITIES: no evidence of cyanosis, clubbing, trace edema NEUROLOGICAL: alert and oriented x 3; CN II - XII intact bilaterally; no focal deficits noted Const: Other: A&O x3 Objective Data Vital Signs Vital Signs: Vital Signs - 24 hr 12/07/24 15:55 12/07/24 16:02 12/07/24 20:07 Temperature Pulse Rate 52 L 60 83 Respiratory Rate 18 18 18 Blood Pressure Pulse Oximetry Oxygen Delivery 12/07/24 20:16 12/07/24 20:21 12/07/24 21:20 Temperature Pulse Rate 83 Respiratory Rate 18 Blood Pressure Pulse Oximetry 98 Oxygen Delivery Room Air Room Air 12/07/24 21:21 12/07/24 21:36 12/08/24 05:29 Temperature 98.3 F 98.3 F Pulse Rate 96 88 77 Respiratory Rate 20 16 Blood Pressure 125/76 110/74 Pulse Oximetry 99 95 Oxygen Delivery 12/08/24 07:29 12/08/24 07:36 12/08/24 07:37 Temperature Pulse Rate 53 L 90 Respiratory Rate 16 16 Blood Pressure Pulse Oximetry 96 Oxygen Delivery Room Air 12/08/24 09:02 12/08/24 14:00 Temperature 97 F L Pulse Rate 92 80 Respiratory Rate 18 Blood Pressure 105/72 Pulse Oximetry 95 Oxygen Delivery Intake/Output Intake/Output: Intake & Output 12/05/24 12/06/24 12/07/24 12/08/24 23:59 23:59 23:59 23:59 Intake Total 2019 1999 813 780 Output Total 3350 3600 7953 1800 Xhrstbr -7236 -4141 -2837 -1020 Meds/Results Medications: Active Medications Generic Name Dose Route Start Last Admin Trade Name Freq PRN Reason Stop Dose Admin Acetaminophen 650 mg 12/03/24 14:07 12/03/24 14:21 Acetaminophen 325 Mg Tablet PO 650 mg Q4H PRN Administration Headache Albuterol 2 puff 12/02/24 23:29 Albuterol Sulfate (*Sp) Aerosol 1 Puff INHALATION Q6HRT PRN shortness of breath or wheezing Albuterol 2.5 mg 12/04/24 12:00 12/08/24 13:50 Albuterol Sulfate Neb 2.5 Mg/3 Ml Inh INHALATION Not Given Q4HRT BANG Amoxicillin/Clavulanate Potassium 1 tablet 12/07/24 21:00 12/08/24 09:03 Amoxicillin/Clavulanate K 875-125 Mg Tab PO 12/12/24 09:01 1 tablet Q12HR BANG Administration Atorvastatin Calcium 40 mg 12/03/24 09:00 12/08/24 09:02 Atorvastatin 40 Mg Tablet PO 40 mg DAILY BANG Administration Diltiazem HCl 120 mg 12/04/24 09:00 12/08/24 09:03 Diltiazem Hcl Cd 120 Mg Cap.24hr PO 120 mg QAM BANG Administration Fentanyl Citrate 25 mcg 12/03/24 10:17 12/03/24 12:35 Fentanyl Citrate Inj (*Crx) 100 Mcg/2 Ml Vial IV PUSH 25 mcg Q2M PRN Administration Pain Fluticasone Propionate 1 spray 12/03/24 09:00 12/07/24 09:10 Fluticasone Propionate 0.05% Na Spr 16 Gm Btl (*Bkc) NASAL 1 spray DAILY [facility] Administration Lactulose 20 gm 12/08/24 14:10 Lactulose 20 Gm/30 Ml Udc PO Q2HR [facility] Metoprolol Tartrate 25 mg/ 37.5 mg 12/08/24 21:00 Metoprolol Tartrate 12.5 mg PO Q12HR [facility] Ondansetron HCl 4 mg 12/03/24 06:23 12/03/24 06:33 Ondansetron Hcl Odt 4 Mg Tablet PO 4 mg Q6H PRN Administration Nausea And Vomiting Ondansetron HCl 4 mg 12/03/24 10:17 Ondansetron Inj 4 Mg/2 Ml Vial IV PUSH ONCE PRN Nausea Polyethylene Glycol 17 gm 12/07/24 12:35 12/08/24 09:02 Polyethylene Glycol 3350 17 Gm Powd.Pack PO 17 gm QAM PRN Administration Constipation Fluticasone/Salmeterol 2 puff 12/03/24 08:00 12/08/24 07:25 Fluticasone/Salmeterol 115-21 Mcg Inhaler 1 Puff INHALATION 2 puff Q12HRT BANG Administration Senna/Docusate Sodium 2 tab 12/07/24 17:25 12/08/24 09:02 Senna/Docusate Sodium Tablet PO 2 tab BID BANG Administration Tamsulosin HCl 0.4 mg 12/03/24 09:00 12/08/24 09:02 Tamsulosin Hcl 0.4 Mg Capsule PO 0.4 mg DAILY BANG Administration Radiology Results: ITS Impressions Abdomen/Pelvis CT 12/02/24 18:41 IMPRESSION: Bilateral hydroureteronephrosis without an obstructing calculus identified. Abnormal mural thickening within the posterior wall of the bladder for which a malignancy is suspected and for which direct visualization is recommended. Chest X-Ray 12/04/24 13:32 Impression: Diffuse pulmonary disease, suggestive of diffuse pulmonary edema and/or chronic interstitial disease. Correlate clinically. Minimal pleural effusions. Abdomen X-Ray 12/07/24 13:46 IMPRESSION: NO ACUTE ABDOMINAL FINDINGS. Constipation. Labs Labs: Laboratory Results - last 24 hr 12/03/24 12/06/24 12/07/24 16:40 18:04 05:53 WBC RBC Hgb Hct MCV MCH MCHC RDW Plt Count MPV Immature Gran % (Auto) Neut % (Auto) Lymph % (Auto) [place] % (Auto) Eos % (Auto) Baso % (Auto) Lymph # (Auto) [place] # (Auto) Eos # (Auto) Baso # (Auto) Abs Immat Gran (auto) Absolute Neuts (auto) Absolute Nucleated RBC Nucleated RBC % Haptoglobin 256 H Sodium Potassium Chloride Carbon Dioxide Anion Gap BUN Creatinine Estim Creat Clear Calc Estimated GFR Glucose Calcium Phosphorus Total Protein 6.5 Albumin Total Testosterone 187 L Free Testosterone 28.3 L [place]/Lambda Ratio 1.46 Free [place] Light Chains 62.1 H Free Lambda Light Chain 42.4 H 12/08/24 05:53 WBC 9.2 RBC 3.60 L Hgb 12.1 L Hct 37.1 L MCV 103.1 H MCH 33.6 MCHC 32.6 RDW 13.9 Plt Count 204 MPV 11.5 H Immature Gran % (Auto) 1.2 H Neut % (Auto) 63.8 Lymph % (Auto) 15.5 L [place] % (Auto) 15.1 H Eos % (Auto) 4.1 Baso % (Auto) 0.3 Lymph # (Auto) 1.43 [place] # (Auto) 1.4 H Eos # (Auto) 0.4 H Baso # (Auto) 0.0 Abs Immat Gran (auto) 0.11 H Absolute Neuts (auto) 5.9 Absolute Nucleated RBC 0.000 Nucleated RBC % 0.0 Haptoglobin Sodium 136 L Potassium 3.5 Chloride 107 Carbon Dioxide 21 L Anion Gap 8 BUN 28 H Creatinine 1.75 H Estim Creat Clear Calc 42 Estimated GFR 39 L Glucose 88 Calcium 8.4 Phosphorus 3.6 Total Protein Albumin 3.1 L Total Testosterone Free Testosterone [place]/Lambda Ratio Free [place] Light Chains Free Lambda Light Chain
--- NOTE | 2024-12-08 18:38 | PC.NURSE ---
This RN noted on assessment that pt HR tachy to 120s. Hospitalist made aware. This RN inquired about tele. agreeable. Urology by and okay with pt voiding small increments. Total urine output was 500 all day. Hem/onc by and concerned with lack of BM. Order received to lactulose PO Q2HR until pt has BM. Pt agreeable. Pt continues to have bouts of tachycardia even with turning in bed, sitting edge of bed up to 150s-170s. Called out to cardiology. Metoprolol changed to 25mg PO Q6hr with parameters. Cardio will be by to see pt tomorrow AM
[2024-12-09] VITALS (10 sets, daily range): BP systolic 97–105; BP diastolic 53–67; PULSE 72–96; RESP 14–18; TEMP 36.6–36.9; O2SAT 95–97
[2024-12-09] MEDS: METOPROLOL TARTRATE 25 MG TABLET PO (06:16)
[2024-12-09 06:53] LABS: Basophils Absolute Auto 0.1 K/mm3 (0.0-0.1); Basophils Percent Auto 0.5 % (0.2-1.2); Eosinophils Absolute Auto 0.4 K/mm3 (0-0.3); Eosinophils Percent Auto 3.3 % (0-4.4); Hematocrit 42.5 % (42.0-52.0); Hemoglobin 13.7 g/dL (14.0-18.0); Immature Granulocyte Absolute 0.15 K/mm3 (0.00-0.031); Immature Granulocyte Percent A 1.4 % (0-0.5); Lymphocytes Absolute Auto 1.58 K/mm3 (0.9-3.2); Lymphocytes Percent Auto 14.6 % (18.3-44.2); Mean Corpuscular HGB Conc 32.2 g/dl (32-36); Mean Corpuscular Hemoglobin 33.9 pg (26-34); Mean Corpuscular Volume 105.2 fl (80-100); Monocytes Absolute Auto 1.3 K/mm3 (0.1-0.6); Monocytes Percent Auto 12.4 % (2.6-8.5); Neutrophils Absolute Auto 7.4 K/mm3 (1.3-6.7); Neutrophils Percent Auto 67.8 % (45.5-73.1); Platelet Count Result 236 k/mm3 (150-375); Red Blood Count 4.04 M/mm3 (4.6-6.20); White Blood Count 10.9 K/mm3 (4.5-10.0)
[2024-12-09 07:05] LABS: Alanine Aminotransferase 54 U/L (6-50); Albumin Level 3.8 g/dL (3.5-5.1); Alkaline Phosphatase 90 U/L (38-126); Anion Gap 8 mmol/L (4-12); Aspartate Amino Transferase 41 U/L (17-59); Bilirubin,Total 0.8 mg/dL (0.2-1.3); Blood Urea Nitrogen 29 mg/dL (9-20); Calcium 8.7 mg/dL (8.4-10.2); Carbon Dioxide 20 mmol/L (22-30); Chloride 107 mmol/L (98-107); Estimated CRCL calculation 38 ml/min; Estimated Glomerular Filt Rate 35; Glucose 100 mg/dL (65-110); Magnesium 2.1 mg/dL (1.6-2.3); Potassium 4.3 mmol/L (3.4-5.0); Sodium 135 mmol/L (137-145)
[2024-12-09 07:30] LABS: Anisocytosis 1+; Platelet Estimate Adequate (Adequate); Schistocytes None Seen
[2024-12-09] MEDS: FLUTICASONE/SALMETEROL 115-21 MCG INHALER 1 PUFF 2 PUFF INHALATION (08:40)
--- NOTE | 2024-12-09 09:13 | WPDUROPN2 ---
Progress Note: A&P Assessment and Plan (1) Urothelial carcinoma of bladder with invasion of muscle: Code(s): C67.9 - Malignant neoplasm of bladder, unspecified Status: Acute (2) Hydroureteronephrosis: Code(s): N13.30 - Unspecified hydronephrosis Status: Acute (3) Acute renal failure: Qualifiers: Acute renal failure type: unspecified Qualified Code(s): N17.9 - Acute kidney failure, unspecified Code(s): N17.9 - Acute kidney failure, unspecified Status: Acute Plan Dr. Preston input noted. Chemoradiation for probable bladder cancer a viable option, barring metastatic disease when staging completed. Will need left nephrostomy with internalizations left uretal stent but radiologists wanted 7 days off ASA if possible (putting this off until or later). Will then need aggressive TURBT. Tentative plans: I'll see if I can arrange intervention radiologist to simultaneously place nephrostomy and nephrostent as outpatient later this week/early next week - followed by staging and aggressive TURBT later next week. 12/09/24 Plans as above Anticipated discharge possibly today Catheter removed yesterday. Patient voiding approx 100ml per void. Will get PVR. Subjective Subjective Date/Time Seen: 12/09/24 09:13 Interval history: Patient is resting comfortably on the bed eating breakfast. Urinary catheter was removed yesterday for voiding trials. Patient is urinating frequently about 100ml at a time. He reports this is much better than when he was admitted and was only able to drip urine. Patient reports that he has cleaned out his bowels and had multiple bm's over several hours this morning. Review of Systems Review of Systems: Patient reports that he feels much better than before he came in as he is able to urinate small amounts frequently now. He denies any fever, chills, night sweats. He denies any chest pain, shortness of breath, cough, hemoptysis. He denies any dizziness, lightheadedness. Patient states he is now cleaned out his bowels. Rest of the 12 point review of system is negative Exam Const: General: comfortable and no acute distress Eyes: General: appearance normal, both eyes and all related structures Skin: General skin exam: normal color and no rashes or lesions noted Neuro: Speech: normal speech Psych: Mental Status: mental status grossly normal Objective Data Vital Signs Vital Signs: Vital Signs - 24 hr 12/08/24 11:45 12/08/24 14:00 12/08/24 16:00 Temperature 97 F L Pulse Rate 114 H 80 108 H Respiratory Rate 18 Blood Pressure 105/72 Pulse Oximetry 95 Oxygen Delivery 12/08/24 19:03 12/08/24 19:56 12/08/24 20:00 Temperature Pulse Rate 112 H 84 Respiratory Rate 16 Blood Pressure Pulse Oximetry 94 Oxygen Delivery Room Air 12/08/24 20:03 12/08/24 20:37 12/08/24 21:35 Temperature 98.0 F Pulse Rate 85 99 Respiratory Rate 18 Blood Pressure 112/69 Pulse Oximetry 95 95 Oxygen Delivery Room Air 12/08/24 22:00 12/08/24 23:42 12/08/24 23:43 Temperature 98.8 F 99.0 F Pulse Rate 80 85 85 Respiratory Rate 18 18 Blood Pressure 102/61 110/64 Pulse Oximetry 95 95 Oxygen Delivery 12/09/24 00:02 12/09/24 04:02 12/09/24 06:00 Temperature 98.5 F Pulse Rate 88 96 88 Respiratory Rate 14 Blood Pressure 105/67 Pulse Oximetry 95 Oxygen Delivery 12/09/24 06:16 12/09/24 08:00 12/09/24 08:37 Temperature 97.8 F Pulse Rate 75 73 Respiratory Rate 16 Blood Pressure 102/53 L Pulse Oximetry 97 Oxygen Delivery Room Air 12/09/24 08:40 Temperature Pulse Rate Respiratory Rate Blood Pressure Pulse Oximetry 96 Oxygen Delivery Room Air Intake/Output Intake/Output: Intake & Output 12/06/24 12/07/24 12/08/24 12/09/24 23:59 23:59 23:59 23:59 Intake Total 1999 813 1570 690 Output Total 3450 4700 2500 1115 Balance -1600 -2837 -930 -425 Meds/Results Medications: Active Medications Generic Name Dose Route Start Last Admin Trade Name Freq PRN Reason Stop Dose Admin Acetaminophen 650 mg 12/03/24 14:07 12/03/24 14:21 Acetaminophen 325 Mg Tablet PO 650 mg Q4H PRN Administration Headache Albuterol 2 puff 12/02/24 23:29 Albuterol Sulfate (*Sp) Aerosol 1 Puff INHALATION Q6HRT PRN shortness of breath or wheezing Amoxicillin/Clavulanate Potassium 1 tablet 12/07/24 21:00 12/08/24 20:37 Amoxicillin/Clavulanate K 875-125 Mg Tab PO 12/12/24 09:01 1 tablet Q12HR [facility] Administration Aspirin 325 mg 12/09/24 09:00 Aspirin 325 Mg Enteric Tablet PO QAM [facility] Atorvastatin Calcium 40 mg 12/03/24 09:00 12/08/24 09:02 Atorvastatin 40 Mg Tablet PO 40 mg DAILY BANG Administration Diltiazem HCl 120 mg 12/04/24 09:00 12/08/24 09:03 Diltiazem Hcl Cd 120 Mg Cap.24hr PO 120 mg QAM BANG Administration Enoxaparin Sodium 40 mg 12/09/24 09:00 Enoxaparin 40 Mg/0.4 Ml Syringe SUB-Q DAILY [facility] Fentanyl Citrate 25 mcg 12/03/24 10:17 12/03/24 12:35 Fentanyl Citrate Inj (*Crx) 100 Mcg/2 Ml Vial IV PUSH 25 mcg Q2M PRN Administration Pain Fluticasone Propionate 1 spray 12/03/24 09:00 12/08/24 09:20 Fluticasone Propionate 0.05% Na Spr 16 Gm Btl (*Bkc) NASAL 1 spray DAILY [facility] Administration Metoprolol Succinate 25 mg 12/09/24 09:00 Metoprolol Succinate Ext Rel 25 Mg Tabcr PO Q12HR [facility] Ondansetron HCl 4 mg 12/03/24 06:23 12/03/24 06:33 Ondansetron Hcl Odt 4 Mg Tablet PO 4 mg Q6H PRN Administration Nausea And Vomiting Ondansetron HCl 4 mg 12/03/24 10:17 Ondansetron Inj 4 Mg/2 Ml Vial IV PUSH ONCE PRN Nausea Polyethylene Glycol 17 gm 12/07/24 12:35 12/08/24 09:02 Polyethylene Glycol 3350 17 Gm Powd.Pack PO 17 gm QAM PRN Administration Constipation Fluticasone/Salmeterol 2 puff 12/03/24 08:00 12/09/24 08:40 Fluticasone/Salmeterol 115-21 Mcg Inhaler 1 Puff INHALATION 2 puff Q12HRT [facility] Administration Senna/Docusate Sodium 2 tab 12/07/24 17:25 12/08/24 16:10 Senna/Docusate Sodium Tablet PO 2 tab BID BANG Administration Tamsulosin HCl 0.4 mg 12/03/24 09:00 12/08/24 09:02 Tamsulosin Hcl 0.4 Mg Capsule PO 0.4 mg DAILY BANG Administration Radiology Results: ITS Impressions Abdomen/Pelvis CT 12/02/24 18:41 IMPRESSION: Bilateral hydroureteronephrosis without an obstructing calculus identified. Abnormal mural thickening within the posterior wall of the bladder for which a malignancy is suspected and for which direct visualization is recommended. Chest X-Ray 12/04/24 13:32 Impression: Diffuse pulmonary disease, suggestive of diffuse pulmonary edema and/or chronic interstitial disease. Correlate clinically. Minimal pleural effusions. Abdomen X-Ray 12/07/24 13:46 IMPRESSION: NO ACUTE ABDOMINAL FINDINGS. Constipation. Labs Labs: Laboratory Results - last 24 hr 12/03/24 12/06/24 12/09/24 16:40 18:04 06:43 WBC 10.9 H RBC 4.04 L Hgb 13.7 L Hct 42.5 MCV 105.2 H MCH 33.9 MCHC 32.2 RDW 14.0 Plt Count 236 MPV 11.0 H Immature Gran % (Auto) 1.4 H Neut % (Auto) 67.8 Lymph % (Auto) 14.6 L [place] % (Auto) 12.4 H Eos % (Auto) 3.3 Baso % (Auto) 0.5 Lymph # (Auto) 1.58 [place] # (Auto) 1.3 H Eos # (Auto) 0.4 H Baso # (Auto) 0.1 Abs Immat Gran (auto) 0.15 H Absolute Neuts (auto) 7.4 H Absolute Nucleated RBC 0.000 Band Neutrophils % Not Reportable Nucleated RBC % 0.0 Platelet Estimate Adequate Anisocytosis 1+ Schistocytes None seen Sodium 135 L Potassium 4.3 Chloride 107 Carbon Dioxide 20 L Anion Gap 8 BUN 29 H Creatinine 1.92 H Estim Creat Clear Calc 38 Estimated GFR 35 L Glucose 100 Calcium 8.7 Magnesium 2.1 Total Bilirubin 0.8 AST 41 ALT 54 H Alkaline Phosphatase 90 Total Protein 8.0 Albumin 3.8 Total Testosterone 187 L Free Testosterone 28.3 L [place]/Lambda Ratio 1.46 Free [place] Light Chains 62.1 H Free Lambda Light Chain 42.4 H
--- NOTE | 2024-12-09 09:19 | PCNWS ---
Weekly nutritional screen. Patient is tolerating current Renal diet with adequate intake, 100% all meals. No weight loss reported. No nutritional needs at this time.
--- NOTE | 2024-12-09 09:35 | P.PNNP_ITS ---
Progress Note: A&P Assessment and Plan (1) Acute kidney injury: Code(s): N17.9 - Acute kidney failure, unspecified Status: Acute Assessment and Plan: * relatively stable * presumed to be secondary to obstructive uropathy * significant improvement with right ureteral stent placement * intervention with left kidney to be needed as well (see #2) * hopefully, this will further improve kidney function * follow trend of repeat labs and UOP (2) Hydroureteronephrosis: Code(s): N13.30 - Unspecified hydronephrosis Status: Acute Assessment and Plan: * bilateral and as noted on admission CT of abdomen/pelvis * Urology following: * s/p cystoscopy, right retrograde pyelography and right ureteral stent placement and TURBT * attempted left ureteral stent placement (but unable to locate left ureteral orifice) * will likely need placement of a left percutaneous nephrostomy tube with eventual internalization of ureteral stent (3) Hyperkalemia: Code(s): E87.5 - Hyperkalemia Status: Acute Assessment and Plan: * resolving/resolved * due to #1 and #2 * s/p medical management * follow trend of K+ (4) Metabolic acidosis: Code(s): E87.20 - Acidosis, unspecified Status: Acute Assessment and Plan: * resolving/resolved * due to HOANG/ARF * s/p a few dose of oral sodium bicarbonate for compensation * follow CO2 levels (5) Hypoxia: Code(s): R09.02 - Hypoxemia Status: Acute Assessment and Plan: * improving * as noted since afternoon of 12/03 * supplemental oxygen being weaned * CXR with evidence of pleural effusions and congestion * however, previous imaging (CT of chest in 2023) notes evidence of emphysema as well.. * post-obstructive diuresis ongoing * Echo (on 12/03) noted: * left ventricular systolic function is normal, estimated at 55-60% * left ventricular diastolic function is normal * mitral valve has mildly calcified annulus * mild mitral valve regurgitation * mild pulmonary hypertension, estimated pulmonary arterial systolic pressure is 42 mmHg * follow respiratory status (6) Atrial fibrillation with RVR: Code(s): I48.91 - Unspecified atrial fibrillation Status: Acute Assessment and Plan: * rate control strategy * on diltiazem and metoprolol * Cardiology following (7) Acute UTI: Code(s): N39.0 - Urinary tract infection, site not specified Status: Acute Assessment and Plan: * admission UA suggestive * however, urine culture was not done * on antibiotics (8) Mass of bladder: Code(s): N32.89 - Other specified disorders of bladder Status: Acute Assessment and Plan: * s/p TURBT * pathology demonstrates high grade invasive urothelial carcinoma * Urology and Oncology following Not opposed to discharge from renal perspective if otherwise medically stable and follow-up has been scheduled for nephrostomy tube placement with stenting of left kidney. Will continue to follow. L Subjective Date/time seen: 12/09/24 09:35 Interval history: Follow-up for acute kidney injury/acute renal failure. No apparent distress noted at the time of my visit; reports several bowel movement overnight after taking laxatives; continues to make good urine output with renal function/creatinine up a tad by recent labs; no other issues/events overnight or earlier this morning; wonders if he will be getting discharged today. Exam 2 Narrative: General: elderly but WD/WN male in NAD Heart: normal S1 and S2; no rub Lungs: coarse breath sounds Abdomen: soft, nontender, nondistended, positive bowel sounds Extremities: no cyanosis or clubbing; no edema Skin: no nodules Objective Data Vital Signs Vital Signs: Vital Signs Temp Pulse Resp BP Pulse Ox O2 Del Method 12/09/24 08:40 96 Room Air 12/09/24 08:37 97.8 F 73 16 102/53 L 97 12/09/24 08:00 73 12/09/24 08:00 Room Air 12/09/24 06:16 75 12/09/24 06:00 98.5 F 88 14 105/67 95 12/09/24 04:02 96 12/09/24 00:02 88 12/08/24 23:43 85 12/08/24 23:42 99.0 F 85 18 110/64 95 12/08/24 22:00 98.8 F 80 18 102/61 95 12/08/24 21:35 98.0 F 99 18 112/69 95 12/08/24 20:37 95 Room Air 12/08/24 20:03 85 12/08/24 20:00 94 Room Air 12/08/24 19:56 84 16 12/08/24 19:03 112 H 12/08/24 16:00 108 H 12/08/24 14:00 97 F L 80 18 105/72 95 Intake/Output Intake/Output: Intake & Output 12/06/24 12/07/24 12/08/24 12/09/24 23:59 23:59 23:59 23:59 Intake Total 1999 813 1570 690 Output Total 3600 3650 1221 1955 Balance -1600 -2837 -930 -425 Meds/Results Medications: Active Medications Generic Name Dose Route Start Last Admin Trade Name Freq PRN Reason Stop Dose Admin Acetaminophen 650 mg 12/03/24 14:07 12/03/24 14:21 Acetaminophen 325 Mg Tablet PO 650 mg Q4H PRN Administration Headache Albuterol 2 puff 12/02/24 23:29 Albuterol Sulfate (*Sp) Aerosol 1 Puff INHALATION Q6HRT PRN shortness of breath or wheezing Amoxicillin/Clavulanate Potassium 1 tablet 12/07/24 21:00 12/09/24 10:37 Amoxicillin/Clavulanate K 875-125 Mg Tab PO 12/12/24 09:01 1 tablet Q12HR BANG Administration Aspirin 325 mg 12/09/24 09:00 12/09/24 10:37 Aspirin 325 Mg Enteric Tablet PO Not Given QAM BANG Atorvastatin Calcium 40 mg 12/03/24 09:00 12/09/24 10:30 Atorvastatin 40 Mg Tablet PO 40 mg DAILY [facility] Administration Diltiazem HCl 120 mg 12/04/24 09:00 12/09/24 10:38 Diltiazem Hcl Cd 120 Mg Cap.24hr PO 120 mg QAM [facility]ANG Administration Fentanyl Citrate 25 mcg 12/03/24 10:17 12/03/24 12:35 Fentanyl Citrate Inj (*Crx) 100 Mcg/2 Ml Vial IV PUSH 25 mcg Q2M PRN Administration Pain Fluticasone Propionate 1 spray 12/03/24 09:00 12/09/24 10:53 Fluticasone Propionate 0.05% Na Spr 16 Gm Btl (*Bkc) NASAL 1 spray DAILY [facility] Administration Metoprolol Succinate 25 mg 12/09/24 09:00 12/09/24 10:46 Metoprolol Succinate Ext Rel 25 Mg Tabcr PO 25 mg Q12HR [facility]ANG Administration Ondansetron HCl 4 mg 12/03/24 06:23 12/03/24 06:33 Ondansetron Hcl Odt 4 Mg Tablet PO 4 mg Q6H PRN Administration Nausea And Vomiting Ondansetron HCl 4 mg 12/03/24 10:17 Ondansetron Inj 4 Mg/2 Ml Vial IV PUSH ONCE PRN Nausea Polyethylene Glycol 17 gm 12/07/24 12:35 12/08/24 09:02 Polyethylene Glycol 3350 17 Gm Powd.Pack PO 17 gm QAM PRN Administration Constipation Fluticasone/Salmeterol 2 puff 12/03/24 08:00 12/09/24 08:40 Fluticasone/Salmeterol 115-21 Mcg Inhaler 1 Puff INHALATION 2 puff Q12HRT BANG Administration Senna/Docusate Sodium 2 tab 12/07/24 17:25 12/09/24 10:33 Senna/Docusate Sodium Tablet PO Not Given BID BANG Tamsulosin HCl 0.4 mg 12/03/24 09:00 12/09/24 10:30 Tamsulosin Hcl 0.4 Mg Capsule PO 0.4 mg DAILY BANG Administration Radiology Results: ITS Impressions Abdomen/Pelvis CT 12/02/24 18:41 IMPRESSION: Bilateral hydroureteronephrosis without an obstructing calculus identified. Abnormal mural thickening within the posterior wall of the bladder for which a malignancy is suspected and for which direct visualization is recommended. Chest X-Ray 12/04/24 13:32 Impression: Diffuse pulmonary disease, suggestive of diffuse pulmonary edema and/or chronic interstitial disease. Correlate clinically. Minimal pleural effusions. Abdomen X-Ray 12/07/24 13:46 IMPRESSION: NO ACUTE ABDOMINAL FINDINGS. Constipation. Labs Labs: Laboratory Tests 12/09/24 06:43 12/09/24 06:43 Calcium 8.7 Magnesium 2.1 Total Bilirubin 0.8 AST 41 ALT 54 H Alkaline Phosphatase 90 Total Protein 8.0 Albumin 3.8
[2024-12-09 09:39] LABS: Albumin 2.9 g/dL (3.8-4.8); Alpha 1 Globulin 0.4 g/dL (0.2-0.3); Alpha 2 Globulin 0.9 g/dL (0.5-0.9); Beta 1 Globulin 0.4 g/dL (0.4-0.6); Gamma Globulin 1.5 g/dL (0.8-1.7)
[2024-12-09] MEDS: TAMSULOSIN HCL 0.4 MG CAPSULE PO (10:30)
[2024-12-09] MEDS: ATORVASTATIN 40 MG TABLET PO (10:30)
[2024-12-09] MEDS: AMOXICILLIN/CLAVULANATE K 875-125 MG TAB 1 TABLET PO (10:37)
[2024-12-09] MEDS: dilTIAZem HCL CD 120 MG CAP.24HR PO (10:38)
[2024-12-09] MEDS: METOPROLOL SUCCINATE EXT REL 25 MG TABCR PO (10:46)
[2024-12-09] MEDS: FLUTICASONE PROPIONATE 0.05% NA SPR 16 GM BTL (*BKC) 1 SPRAY NASAL (10:53)
--- NOTE | 2024-12-09 12:21 | P.PNCA_ITS ---
Progress Note: A&P Assessment and Plan (1) Atrial fibrillation with RVR: Code(s): I48.91 - Unspecified atrial fibrillation Status: Acute Assessment and Plan: Asymptomatic. [id number] 0. On aspirin. Rate controlled. On Diltiazem CD 120 mg daily and change Metoprolol Succinate 25 mg BID to improve HR control. No further cardiac workup. Will sign off, please call with any questions. (2) Dyslipidemia: Code(s): E78.5 - Hyperlipidemia, unspecified Status: Acute Assessment and Plan: On Atorvastatin. (3) Systolic dysfunction: Code(s): I51.9 - Heart disease, unspecified Status: Acute Assessment and Plan: Resolved. 12/03/24 Echo: EF 55-60%, severe biatrial enlargement, mild MR, RVSP 42 mmHg. (4) Acute renal failure: Qualifiers: Acute renal failure type: unspecified Qualified Code(s): N17.9 - Acute kidney failure, unspecified Code(s): N17.9 - Acute kidney failure, unspecified Status: Acute Assessment and Plan: Improving. Seeing laboratory animal care veterinarian. (5) Acute UTI: Code(s): N39.0 - Urinary tract infection, site not specified Status: Acute Assessment and Plan: On antibiotics. (6) Bladder wall thickening: Code(s): N32.89 - Other specified disorders of bladder Status: Acute Assessment and Plan: Due to bladder cancer. Seeing oncology, urology. Subjective Date/time seen: 12/09/24 12:21 Interval history: Has some sob. No chest pains. Exam Const: General: cooperative, healthy appearing and comfortable Orientation/consciousness: oriented to person, oriented to place and oriented to time Resp: Auscultation: clear to auscultation bilaterally, no crackles, no rales, no rhonchi and no wheezes Cardio: Rate: regular rate Rhythm: abnormal rhythm Heart sounds: no murmurs Peripheral pulses: dorsalis pedis present Neuro: General: oriented to person, oriented to place and oriented to time Extrem: Right lower extremity: no edema Left lower extremity: no edema Objective Data Vital Signs Vital Signs: Vital Signs - 24 hr 12/08/24 14:00 12/08/24 16:00 12/08/24 19:03 Temperature 97 F L Pulse Rate 80 108 H 112 H Respiratory Rate 18 Blood Pressure 105/72 Pulse Oximetry 95 Oxygen Delivery 12/08/24 19:56 12/08/24 20:00 12/08/24 20:03 Temperature Pulse Rate 84 85 Respiratory Rate 16 Blood Pressure Pulse Oximetry 94 Oxygen Delivery Room Air 12/08/24 20:37 12/08/24 21:35 12/08/24 22:00 Temperature 98.0 F 98.8 F Pulse Rate 99 80 Respiratory Rate 18 18 Blood Pressure 112/69 102/61 Pulse Oximetry 95 95 95 Oxygen Delivery Room Air 12/08/24 23:42 12/08/24 23:43 12/09/24 00:02 Temperature 99.0 F Pulse Rate 85 85 88 Respiratory Rate 18 Blood Pressure 110/64 Pulse Oximetry 95 Oxygen Delivery 12/09/24 04:02 12/09/24 06:00 12/09/24 06:16 Temperature 98.5 F Pulse Rate 96 88 75 Respiratory Rate 14 Blood Pressure 105/67 Pulse Oximetry 95 Oxygen Delivery 12/09/24 08:00 12/09/24 08:00 12/09/24 08:37 Temperature 97.8 F Pulse Rate 73 73 Respiratory Rate 16 Blood Pressure 102/53 L Pulse Oximetry 97 Oxygen Delivery Room Air 12/09/24 08:40 12/09/24 10:46 Temperature Pulse Rate 72 Respiratory Rate Blood Pressure Pulse Oximetry 96 Oxygen Delivery Room Air Intake/Output Intake/Output: Intake & Output 12/06/24 12/07/24 12/08/24 12/09/24 23:59 23:59 23:59 23:59 Intake Total 1999 818 1570 690 Output Total 3544 4787 2500 1115 Balance -1600 -2837 -930 -425 Meds/Results Medications: Active Medications Generic Name Dose Route Start Last Admin Trade Name Freq PRN Reason Stop Dose Admin Acetaminophen 650 mg 12/03/24 14:07 12/03/24 14:21 Acetaminophen 325 Mg Tablet PO 650 mg Q4H PRN Administration Headache Albuterol 2 puff 12/02/24 23:29 Albuterol Sulfate (*Sp) Aerosol 1 Puff INHALATION Q6HRT PRN shortness of breath or wheezing Amoxicillin/Clavulanate Potassium 1 tablet 12/07/24 21:00 12/09/24 10:37 Amoxicillin/Clavulanate K 875-125 Mg Tab PO 12/12/24 09:01 1 tablet Q12HR BANG Administration Aspirin 325 mg 12/09/24 09:00 12/09/24 10:37 Aspirin 325 Mg Enteric Tablet PO Not Given QAM BANG Atorvastatin Calcium 40 mg 12/03/24 09:00 12/09/24 10:30 Atorvastatin 40 Mg Tablet PO 40 mg DAILY BANG Administration Diltiazem HCl 120 mg 12/04/24 09:00 12/09/24 10:38 Diltiazem Hcl Cd 120 Mg Cap.24hr PO 120 mg QAM BANG Administration Enoxaparin Sodium 40 mg 12/09/24 09:00 Enoxaparin 40 Mg/0.4 Ml Syringe SUB-Q DAILY [facility] Fentanyl Citrate 25 mcg 12/03/24 10:17 12/03/24 12:35 Fentanyl Citrate Inj (*Crx) 100 Mcg/2 Ml Vial IV PUSH 25 mcg Q2M PRN Administration Pain Fluticasone Propionate 1 spray 12/03/24 09:00 12/09/24 10:53 Fluticasone Propionate 0.05% Na Spr 16 Gm Btl (*Bkc) NASAL 1 spray DAILY [facility] Administration Metoprolol Succinate 25 mg 12/09/24 09:00 12/09/24 10:46 Metoprolol Succinate Ext Rel 25 Mg Tabcr PO 25 mg Q12HR [facility] Administration Ondansetron HCl 4 mg 12/03/24 06:23 12/03/24 06:33 Ondansetron Hcl Odt 4 Mg Tablet PO 4 mg Q6H PRN Administration Nausea And Vomiting Ondansetron HCl 4 mg 12/03/24 10:17 Ondansetron Inj 4 Mg/2 Ml Vial IV PUSH ONCE PRN Nausea Polyethylene Glycol 17 gm 12/07/24 12:35 12/08/24 09:02 Polyethylene Glycol 3350 17 Gm Powd.Pack PO 17 gm QAM PRN Administration Constipation Fluticasone/Salmeterol 2 puff 12/03/24 08:00 12/09/24 08:40 Fluticasone/Salmeterol 115-21 Mcg Inhaler 1 Puff INHALATION 2 puff Q12HRT [facility] Administration Senna/Docusate Sodium 2 tab 12/07/24 17:25 12/09/24 10:33 Senna/Docusate Sodium Tablet PO Not Given BID [facility] Tamsulosin HCl 0.4 mg 12/03/24 09:00 12/09/24 10:30 Tamsulosin Hcl 0.4 Mg Capsule PO 0.4 mg DAILY BANG Administration Radiology Results: ITS Impressions Abdomen/Pelvis CT 12/02/24 18:41 IMPRESSION: Bilateral hydroureteronephrosis without an obstructing calculus identified. Abnormal mural thickening within the posterior wall of the bladder for which a malignancy is suspected and for which direct visualization is recommended. Chest X-Ray 12/04/24 13:32 Impression: Diffuse pulmonary disease, suggestive of diffuse pulmonary edema and/or chronic interstitial disease. Correlate clinically. Minimal pleural effusions. Abdomen X-Ray 12/07/24 13:46 IMPRESSION: NO ACUTE ABDOMINAL FINDINGS. Constipation. Labs Labs: Laboratory Results - last 24 hr 12/03/24 12/06/24 12/09/24 16:40 18:04 06:43 WBC 10.9 H RBC 4.04 L Hgb 13.7 L Hct 42.5 MCV 105.2 H MCH 33.9 MCHC 32.2 RDW 14.0 Plt Count 236 MPV 11.0 H Immature Gran % (Auto) 1.4 H Neut % (Auto) 67.8 Lymph % (Auto) 14.6 L [place] % (Auto) 12.4 H Eos % (Auto) 3.3 Baso % (Auto) 0.5 Lymph # (Auto) 1.58 [place] # (Auto) 1.3 H Eos # (Auto) 0.4 H Baso # (Auto) 0.1 Abs Immat Gran (auto) 0.15 H Absolute Neuts (auto) 7.4 H Absolute Nucleated RBC 0.000 Band Neutrophils % Not Reportable Nucleated RBC % 0.0 Platelet Estimate Adequate Anisocytosis 1+ Schistocytes None seen Sodium 135 L Potassium 4.3 Chloride 107 Carbon Dioxide 20 L Anion Gap 8 BUN 29 H Creatinine 1.92 H Estim Creat Clear Calc 38 Estimated GFR 35 L Glucose 100 Calcium 8.7 Magnesium 2.1 Total Bilirubin 0.8 AST 41 ALT 54 H Alkaline Phosphatase 90 Total Protein 8.0 Albumin 2.9 L 3.8 Jbyqx-3-Wfpwqjgtd 0.4 H Brygy-7-Fzknliiih 0.9 Qkwv-8-Oangugmz 0.4 Eipk-9-Htorkplw 0.4 Gamma Globulins 1.5 PEP Interpretation See note Total Testosterone 187 L Free Testosterone 28.3 L [place]/Lambda Ratio 1.46 Free [place] Light Chains 62.1 H Free Lambda Light Chain 42.4 H
--- NOTE | 2024-12-09 14:31 | PM.DS ---
DS: Admitting Diagnosis Discharge Date 12/09/24 Admitting Diagnosis Urinary retention DS: Discharge Diagnosis Discharge Diagnosis (1) Acute renal failure: Qualifiers: Acute renal failure type: unspecified Qualified Code(s): N17.9 - Acute kidney failure, unspecified Code(s): N17.9 - Acute kidney failure, unspecified Status: Acute (2) Bladder cancer: Code(s): C67.9 - Malignant neoplasm of bladder, unspecified Status: Acute DS: Summary Hospital Course Hospital Course: This is a pleasant 69-year-old male with a history of dyslipidemia, AFib, COPD, BPH, prior tobacco abuse, marijuana use, who presents with the complaint of urinary retention for a few days. He has been taking tamsulosin and it was recently increased per his PCP. For about 3 weeks ago he developed dysuria and he was taking antibiotics with improvement of his dysuria. The dysuria then returned about a week prior to admission. Over the past couple days the patient has had difficulty urinating and emptying his bladder. He was advised to report to the ER. He also reports suprapubic pressure slightly to the right as well as right flank pain. He has had nausea and vomiting and decreased p.o. intake. Denies hematuria, fever, shortness of breath, chest pain. On the day of admission on 12/01/2024 at [facility] he was found to have a respiratory rate 13, blood pressure 135/87, temperature 97.5? F, saturating 94% on room air. He was in atrial fibrillation with RVR in the 120s to 140s. WBC 8.7, hemoglobin 13.9, potassium 5.2, bicarb 16, anion gap 19, BUN 89, serum creatinine 12.7, phosphorus 8.3, magnesium 2.6, urinalysis cloudy, 2+ blood, leukocyte esterase 2+, WBC 50 1-100, moderate squamous cells identified, CT abdomen and pelvis without contrast demonstrated bilateral hydroureteronephrosis without an obstructing calculus identified, abnormal neuro mural thickening within the posterior wall of the bladder for which malignancy is suspected. He was given 2 L of normal saline, ceftriaxone 1 g IV x1, diltiazem 10 mg IV push x1, metoprolol tartrate 5 mg IV push x1. After initial treatment patient reported feeling better with less pain. Cardiology consulted for Afib RVR and discharged on Metoprolol succinate 25mg bid, diltiazem 120 daily. on Aspirin 325mg and follow up cardiology. ECHO from August Ef 40-45%, continue follow up with cardiology. Urology and nephrology were consulted for ARF and hydronephrosis, Cr went dfrom 12.7 to 1.94, hyperkalemia resolved . S/p cystoscopy with right ureteral stent, however unbale cannulate left ureteral orifice and thus unable to place stent. Patietn will follow up with urology for urostomy. ALso biospy during cystoscopy showed urothelial cancer, oncology was consulted and both Urology and Oncology willl follow up outpatient Also managed for constipation, relieved with Miralax and Senna, continue Miralax and Senna PRN. Continue Augmentin 3 more days for UTI. F/u with PCP in 3-5 days, f/u with oncology and Urology as instructed F/u with cardiology as instructed Time Spent with Patient Time attestation: Total time spent providing and/or coordinating discharge services: DS: Data Data Completed and Pending Completed studies during hospitalization: Pending at discharge 12/03/24 11:23 Surgical [PTH] Routine Labs on day of discharge: Labs from last 24 hours 12/09/24 12/06/24 06:43 18:04 WBC 10.9 H RBC 4.04 L Hgb 13.7 L Hct 42.5 MCV 105.2 H MCH 33.9 MCHC 32.2 RDW 14.0 Plt Count 236 MPV 11.0 H Immature Gran % (Auto) 1.4 H Neut % (Auto) 67.8 Lymph % (Auto) 14.6 L [place] % (Auto) 12.4 H Eos % (Auto) 3.3 Baso % (Auto) 0.5 Lymph # (Auto) 1.58 [place] # (Auto) 1.3 H Eos # (Auto) 0.4 H Baso # (Auto) 0.1 Abs Immat Gran (auto) 0.15 H Absolute Neuts (auto) 7.4 H Absolute Nucleated RBC 0.000 Band Neutrophils % Not Reportable Nucleated RBC % 0.0 Platelet Estimate Adequate Anisocytosis 1+ Schistocytes None seen Sodium 135 L Potassium 4.3 Chloride 107 Carbon Dioxide 20 L Anion Gap 8 BUN 29 H Creatinine 1.92 H Estim Creat Clear Calc 38 Estimated GFR 35 L Glucose 100 Calcium 8.7 Magnesium 2.1 Total Bilirubin 0.8 AST 41 ALT 54 H Alkaline Phosphatase 90 Total Protein 8.0 Albumin 3.8 2.9 L Ipqme-0-Pwzmuptko 0.4 H Rhucp-5-Msacfpoxi 0.9 Iodz-6-Cmmrwahq 0.4 Rjnp-0-Lywjibug 0.4 Gamma Globulins 1.5 PEP Interpretation See note Discharge Plan Discharge Attending physician on discharge: Ramesh Rojas Consulting providers: Min Perez; Lon Foster; Jorge Alberto Carlson; Noni Preston Discharging Clinician: Ramesh Rojas Anticipated Discharge Date/Time: 12/07/24 09:06 Patient Disposition: Home Activity: as tolerated Diet: renal Discharge Instructions: Patient needs to follow-up with Nephrology, Urology and Oncology within a week upon discharge. Do not take aspirin for 7 days and follow up with As per urology will place nephrostomy and nephrostent as outpatient later this week/early next week - followed by staging and aggressive TURBT later next week. Patient Instructions: Antibiotic Form Patient Language: Tamazight Stand Alone Forms: General Discharge Information Follow-up/Referrals: Devora,STELLA Dos Santos [Primary Care Provider] - Jorge Alberto Carlson DO [Physician] - Min Perez MD [Physician] - Noni Preston MD [Physician] - Lon Foster MD [Physician] - Discharge Medications: New metoprolol succinate [Toprol XL] 25 mg Tablet Extended Release 24 Hr 25 mg PO Q12HR 30 Days Qty: 60 1RF amoxicillin-pot clavulanate [Augmentin] 500-125 mg tablet 1 tablet PO Q12H 3 Days Qty: 6 0RF diltiazem HCl 120 mg Capsule,Extended Release 24hr 120 mg PO QAM Qty: 30 0RF polyethylene glycol 3350 [Miralax] 17 gram Powder In Packet 17 g PO QAM PRN (Reason: Constipation) 30 Days Qty: 30 1RF senna 8.6 mg capsule 8.6 mg PO DAILY PRN (Reason: constipation) 30 Days Qty: 30 1RF Continued nitroglycerin 0.4 mg tablet, sublingual 0.4 mg sublingual Q5M PRN (Reason: Chest Pain) Rx Instructions: do not exceed 3 doses per episode vitamin H41-[id number] acid 0.5-1 mg tablet 1 tablet PO DAILY fluticasone propionate [Allergy Relief (fluticasone)] 50 mcg/actuation spray,suspension 1 spray intranasal DAILY Rx Instructions: administer into each nostril ergocalciferol (vitamin D2) 1,250 mcg (50,000 unit) capsule 1,250 mcg PO WEEKLY aspirin 325 mg tablet,delayed release (DR/EC) 325 mg PO DAILY atorvastatin 40 mg tablet 40 mg PO DAILY tamsulosin 0.4 mg capsule 0.4 mg PO DAILY albuterol sulfate 90 mcg/actuation HFA aerosol inhaler 2 puff INHALATION Q6H PRN (Reason: shortness of breath or wheezing) fluticasone propion-salmeterol [Advair HFA] 115-21 mcg/actuation HFA aerosol inhaler 2 puff INHALATION DAILY budesonide-formoterol [Symbicort] 160-4.5 mcg/actuation HFA aerosol inhaler 2 puff INHALATION DAILY Discontinued metoprolol succinate 50 mg tablet extended release 24 hr 50 mg PO DAILY Qty: 30 5RF Date of admission: 12/02/24 20:30 Primary Care Provider: MadelynRaya Admitting Provider: Angie Bardales Attending physician on admission: Angie Bardales Condition: Stable
== END 2024-12-09 16:26 | disposition home or self-care (01) | DRG 657 ==
LOC: ANHED 20:28 → ANHIMU 21:11 → ANH3MEDSUR 12-06 16:30
PROVIDERS: General Practice; Internal Medicine; Internal Medicine Nephrology; Urology; Admitting Provider General Practice; Emergency Provider Physician Assistant; PCP Physician Assistant; Visit Provider Internal Medicine
PROC: BT1DZZZ Fluoroscopy of Right Kidney, Ureter and Bladder (ICD-10-PCS; CPT 52352; principal; 2024-12-03 12:00)
PROC: 0TBB8ZZ Excision of Bladder, Via Natural or Artificial Opening Endoscopic (ICD-10-PCS; 2024-12-03 12:00)
DX: C67.9 Malignant neoplasm of bladder, unspecified (principal); I48.20 Chronic atrial fibrillation, unspecified; N13.30 Unspecified hydronephrosis; N17.9 Acute kidney failure, unspecified; N39.0 Urinary tract infection, site not specified; C61 Malignant neoplasm of prostate; E78.5 Hyperlipidemia, unspecified; E87.5 Hyperkalemia; F12.90 Cannabis use, unspecified, uncomplicated; I51.9 Heart disease, unspecified; I48.91 Unspecified atrial fibrillation; J43.9 Emphysema, unspecified; K59.00 Constipation, unspecified; N40.1 Benign prostatic hyperplasia with lower urinary tract symptoms; R09.02 Hypoxemia; R33.8 Other retention of urine; Z87.891 Personal history of nicotine dependence
CPT/HCPCS: 36415; 71045; 74018; 74176; 74420; 80048; 80053; 80069; 81001; 82607; 82746; 83010; 83605; 83690; 83735; 83883; 84100; 84153; 84154; 84155; 84165; 84402; 84403; 84443; 85025; 85027; 85046; 85610; 85730; 86704; 86706; 87040; 87340; 87635; 88305; 88331; 93005; 93306; 94640; 96361; 96374; 96375; 99285; A9270; C1758; C1769; C2617; J0696; J1100; J1815; J1939; J2003; J2405; J2704; J3010; J7030; J7120; Q9966

== ENCOUNTER 2024-12-17 01:16 | Day surgery (SDC) | payer MEDICARE, SELFPAY ==
--- NOTE | 2024-12-11 08:14 | PC.NURSE ---
Report to the Outpatient Waiting Room, entrance under the green pavilion located off [facility], at time _2 pm on date __12/17/24 . Planned Procedure Time: _4pm .? Time changes happen often and if your time is changed the preop area will call you the afternoon before. - You and your visitor will be asked to self-screen and do not enter if you have any COVID symptoms. Please call surgeon if you need to reschedule. - A mask is optional within the hospital at this time. Patients may have clear liquids (water, carbonated beverages, clear teas, apple juice) until 3 hours prior to surgery ( 1pm) with a maximum of 20 ounces. - No food from midnight until time of surgery and no smoking, or chewing tobacco (or any form of nicotine). No chewing gum, candy or mints. Take only the following medications with a SIP of water on the morning of surgery: __SYMBICORT INHALER,METOPROLOL,DILTIAZEM,AUGMENTIN DO NOT STOP ANY OF YOUR OTHER PRESCRIPTION MEDICATIONS PRIOR TO SURGERY EXCEPT THE FOLLOWING Hold all vitamins and supplements for 3 days per anesthesiologist.LAST DOSE 12/13/24 Medications to discontinue per physician ___PT STATES LAST DOSE ASPIRIN 2 WKS AGO Date to take last dose Please no make-up, nail syriac, hairspray, perfume, deodorant, or body powder the day of surgery.? No jewelry (including any body piercings) or valuables the day of surgery, leave them at home.? Please take a shower or bath the night before, or the morning of, surgery with an antibacterial soap.? Wear comfortable, loose fitting clothing.? Children are encouraged to wear pajamas. - Jewelry must be removed prior to entering the operating room.? Rings and piercings that are not removed may be cut off. - The hospital will not accept responsibility for valuables.? - Please leave all valuables, including medications, at home the day of surgery. If you are going home after surgery, a licensed street flusher driver must drive you home.? - NO public transportation without another adult if you receive anesthesia. - We recommend that an adult stay with you for 24 hours following discharge. - We also recommend that you do not drive, make important decision, drink alcoholic beverages, or take any drugs that were not prescribed by your health care provider for at least 24 hours after your discharge time. Follow any additional instructions given to you from your surgeon. Telephone instructions given to PATIENT and asked if any additional questions and then verbalized understanding. Patient advised to call surgeon office or pre surgery nurse liaison [phone] if any additional questions.
[2024-12-11 08:41] VITALS: BMI 24.4
[2024-12-17] VITALS (7 sets, daily range): BP systolic 68–115; BP diastolic 50–92; PULSE 67–84; RESP 12–16; TEMP 36.1–36.5; O2SAT 97–100
--- OUTSIDE RECORDS SUMMARY | 2024-12-17 01:18 | XMS_ITS | Clinical Summary ---
Author Organization [facility] Address [address] [facility] [place] [address] Care Team Providers Care Detector Car Operator Name Role Phone Jazmin Abel MD Primary Care Provider [phone] Source Comments [facility],non-owned Affiliates and Associated Physician Practices is amultiple site organization consisting of ambulatory clinics and hospital sitesin [place], [place] and [place]. This disclosure is being madepursuant to the Care Everywhere program and may not contain all information available regarding this patient. 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 Interventions: Insurance MEDICARE MEDICARE [facility] MANAGED MEDICARE ADV SELF PAY NO INSURANCE Member Subscriber Plan / Payer (Ef fective for All Dates) Name:Tammie Walter Member ID:Not on file Relation to Subscriber:Not on file Name:WALTER HENLEY Subscriber ID:Not on file (Home) Address: [address] [place] [address] Payer ID:Not on file Group ID:Not on file Type:Self Pay Address: [place], [place] MEDICARE Care Teams Detector Car Operator Relationship Specialty Start Date End Date Jazmin Abel MD [address] [place] [address] PCP - General 05/14/19
--- OUTSIDE RECORDS SUMMARY | 2024-12-17 01:19 | XMS_ITS | Encounter Summary ---
Author Organization [facility] Address [address] [place] [address] Care Team Providers Care Chief Sustainability Officer Name Role Phone Mikel Shepard MD Unavailable [phone] Jazmin Abel MD Primary Care Provider [phone] David Felix MD Unavailable Raya Lozoya PA-C Primary Care Provider [phone] Encounter Details Date Type Department Care Team (Late st Contact Info) Description 07/19/2017 Abstract [facility] at [address] [address] Mallory Jackson [place] Social History Tobacco Use Types Packs/Day Years Used Date Smoking Tobacco: Former Cigarettes Q uit: 04/2017 Smokeless Tobacco: Never Alcohol Use Standard Drinks/Week Comments No 0 (1 standard drink = 0.6 oz pur e alcohol) Sex and Gender Information Value Date Recorded Sex Assigned at Male 12/10/2024 11:33 AM CDT Legal Sex Male 7:56 PM CDT Gender [...] on filedocumented in this encounter Care Teams Chief Sustainability Officer Relationship Specialty Start Date End Date Jazmin Abel MD [facility] [place] [address] PCP - General FAMILY PRACTICE 03/30/19 12/09/24 Raya Lozoya PAMarileeC [address] [place] [id number] PCP - General PHYSIC[address] MACHINERY INSPECTOR 12/10/24 Mikel Shepard MD [place] [facility] CARDIOVASCULAR DISEASE 06/18/17 04/01/18 David Felix MD [facility]. [facility] [address] [place] [address] [place] [facility] INTERVENTIONAL CARDIOLOGY 06/17/19 documented as of this encounter
--- OUTSIDE RECORDS SUMMARY | 2024-12-17 01:19 | XMS_ITS | Encounter Summary ---
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
--- OUTSIDE RECORDS SUMMARY | 2024-12-17 01:19 | XMS_ITS | Clinical Summary ---
Author Organization [facility] Address [address] [place] [address] Care Team Providers Care Pump Service Supervisor Name Role Phone David Felix MD Unavailable Raya Lozoya PA-C Primary Care Provider [phone] Allergies No known active allergies Medications INCRUSE ELLIPTA 62.5 MCG/INH AEROSOL POWDER, BREATH ACTIVATEDIndica tions:Pulmonary emphysema (CMS/HCC HHS/HCC) INHALE 1 PUFF BY MOUTH ONCE DAILY 30 each 6 09/04/2018 Active albuterol sulfate HFA (VENTOLIN HFA) 108 (90 Base) MCG/ACT inhalerIndicati ons:Pulmonary emphysema ([facility]/HCC HHS/HCC) Inhale 2 puffs into the lungs every 6 (six) hours as needed for Wheezing. 1 Inhaler 12/08/2018 Active aspirin 81 MG tablet Take 1 tablet (81 mg total) by mouth daily. 11/08/2014 Active vitamin D2, ergocalciferol, 74276 UNITS capsule Take 1 capsule (50,000 Units total) by mouth once a week. 3 03/23/2019 Active traMADol 50 MG tablet Take 1 tablet (50 mg total) by mouth 4 (four) times daily as needed. 06/12/2016 Active nitroglycerin 0.4 MG SL tablet DISSOLVE ONE TABLET UNDER THE TONGUE EVERY 5 MINUTES NEEDED FOR CHEST PAIN. DO NOT EXCEED A TOTAL OF 3 DOSES IN 15 MINUTES IF PAIN PERSIS 3 06/03/2019 Active Fluticasone-Guilherme meterol (AIRDUO RESPICLICK 113/14) 113-14 MCG/ACT AEROSOL POWDER, BREATH ACTIVATEDIndica tions:Centrilob ular emphysema ([facility]) Inhale 1 puff into the lungs 2 (two) times a day. 1 each 6 07/02/2019 Active Active Problems Problem Noted Date Diagnosed Date Cigarette nicotine dependence in remission 03/30 KELLI (obstructive sleep apnea) 10/25/2017 Pulmonary nodule 10/25/2017 Pulmonary emphysema ([facility]) 10/25/2017 Environmental and seasonal allergies 07/25/2017 Excessive daytime sleepiness 07/25/2017 GERD (gastroesophageal reflux disease) 7 SOB (shortness of breath) on exertion 07/25/2017 Paraseptal emphysema ([facility]) 7 Aortic atherosclerosis 07/19/2017 Precordial pain 07/19/2017 Syncope 07/19/2017 Former smoker 06/21/2017 Centrilobular emphysema ([facility]) 2016 Heart murmur 06/21/2017 Marijuana use 06/21/2017 [...] Encounter for preventive health examination 09/09/2014 04/22/2020 Encounters Date Type Department Care Team Description 12/10/2024 11:37 AM CDT - 12/10/2024 5:15 PM CDT Hospital Encounter [facility] [place] [address] Tere Ybarra MD Discharge Disposition: Home or Self Care (Routine Discharge) 12/10/2024 11:25 AM CDT - 12/10/2024 11:29 AM CDT Hospital Encounter [place] [address] Damian Duarte MD Discharge Disposition: Home or Self Care (Routine Discharge) 12/10/2024 Travel 12/09/2024 Orders Only [facility] [address] Damian Duarte MD 12/09/2024 Hospital Orders Only [facility] [address] Damian Duarte MD from Last 3 Months Family History Medical History Relation Comments Heart [...] Sign Reading Time Taken Comments Blood Pressure 107/79 12/10/2024 4:30 PM CDT Pulse 82 12/10/2024 3:45 PM CDT Temperature 36.6 C (97.8 F) 12/10/2024 4:30 PM CDT Respiratory Rate 16 12/10/2024 4:45 PM CDT Oxygen Saturation 98% 12/10/2024 5:00 PM CDT Inhaled Oxygen Concentration - - Weight 83.9 kg (185 lb) 12/10/2024 12:30 PM CDT Height 185.4 cm (6' 1 ) 12/10/2024 12:30 PM CDT Body Mass Index 24.41 12/10/2024 12:30 PM CDT Plan of Treatment Health Maintenance [...] Annual Medicare Wellness Visit 2022 COVID-19 Vaccine ( season) 2024 07/05/2021, 06/14/2021 DTaP, Tdap and Td Vaccines (2 - Td or Tdap) 10/08/2024 10/08/2014 Lung Cancer Screening 01/12/2025 01/13/2024 , 12/22/2021, 04/01/2019, Additional history exists Hepatitis C Completed 10/08/2014 AAA SCREENING Completed 01/13/2024, 06/13, 07/02/2017 Meningococcal B Vaccine Aged Out No l onger eligible based on patient's age to complete this topic Meningococcal Vaccine Aged Out No char ehsan eligible based on patient's age to complete this topic RSV Immunizations Under 20 Months Aged Out No longer eligible based on patient's age to complete this topic Medical Devices Implanted Type Area Childcare Director Device Identifier Shelf Expiration Date Model / Serial / Lot Ureteral Stent-12/11/19 25 Implanted:Qt y: 1 on 12/10/2024 by Damian Duarte MD Stent Left: Ureter [employer] RUPA 12/09/2026 [id number] / / [id number] Procedures Procedure Name Priority Date/Time Associated Diagnosis Comments IR NEPH CATH PLCMNT Routine 12/10/2024 3 :00 PM CDT Hydronephrosis PLATELET COUNT, AUTO Routine 12/10/2024 1:00 PM CDT Hydronephrosis PARTIAL THROMBOPLASTIN TIME,PTT Routine 12/10/2024 1:00 PM CDT Hydronephrosis PROTHROMBIN TIME, VENOUS Routine 12/10/2024 1:[address] LUNG SCREENING Routine 12/22/2021 12: 26 PM CDT Nicotine dependence, cigarettes, in remission LIPID PANEL Routine 08/07/2017 9:50 AM WASH OPERATOR Chest pain SOB (shortness of breath) CT CHEST WO CON Routine 07/02/2017 10:10 AM WASH OPERATOR Abnormal chest x-ray HEPATITIS A,B,& C Routine 10/08/2014 12: 10 PM WASH OPERATOR from Last 3 Months or Most Recently Relevant to Health Maintenance Results * IR NEPH CATH PLCMNT (12/10/2024 3:00 PM CDT) Anatomical Region Laterality Modality Abdomen Interventional R adiology, Radiographic Imaging, Radiographic Imaging 12/10/2024 3:25 PM CDT Impressions 12/10/2024 3:33 PM CDT =====IMPRESSION:===== 1. Left percutaneous nephrostomy access site with ultrasound and fluoroscopy guidance. 2. Left antegrade nephrostogram showing hydronephroureter with distal left ureteral obstruction at the bladder.. 3. Left internal ureteral 6 Armenian 26 cm stent placed in satisfactory position. 4. No immediate procedure complication. Ordered By: TERE YBARRA Interpreted By: Damian Duarte MD, 12/10/2024 3:25 PM Narrative 12/10/2024 3:33 PM CDT [facility] [address] [place], [place] [address] Procedure Nephrostomy tube placement; antegrade nephrostogram; left ureteral stent placement. EXAM DATE/TIME: 12/10/2024 11:36 AM Indication: 69 male, presenting for left percutaneous nephrostomy access and internal ureteral stent placement. Left renal obstruction at the level of the bladder. Status post right retrograde ureteral stenting with the unsuccessful attempt at left ureteral stent placement. Bladder cancer. New Comparison: Outside CT abdomen pelvis 12/02/2024. Technique: Informed verbal and written consent was obtained from the patient, patient's medical power of attorney lawyer. The procedure was discussed including rationale, alternatives, benefits and risks including infection, damage to the kidney, bleeding, related to placement of failure to place a stent or nephrostomy catheter. Patient was brought to procedure suite and positioned prone on the procedure table. Patient was positioned prone. Initial survey ultrasound shows mild left hydronephrosis. Ultrasound images were saved. A left renal lower pole dilated calyx was the identified and chosen for percutaneous access. The left posterior flank was prepped and draped in usual sterile fashion. Intravenous sedation was administered by a qualified interventional radiology nurse with continuous cardiorespiratory monitoring including pulse, blood pressure, and oxygen saturation, under supervision of the interventional radiologist. Total intraprocedure [id number] time with the radiologist including sedation time was 23 minutes. Medications: Ceftriaxone 1 g IV Versed 1 mg IV Fentanyl 25 mcg IV Sterile ultrasound technique, and maximum sterile barrier technique including hand hygiene, and skin preparation was employed for the procedure. 1% lidocaine was administered for local anesthesia at the skin and deeper soft tissues down to the renal capsule. A small skin incision made through which a 22-gauge needle was advanced under ultrasound guidance into the targeted left renal lower pole calyx there is degenerative clear urine. Dated contrast was also administered a nephroscopy confirming collecting system access. A microwire was placed followed by placement of a transitional micropuncture sheath system. The inner stiffener and and sheath were removed leaving the outer [address]. A stiff Amplatz wire was placed through the sheath which was removed followed by advancement of a 5 Armenian Yueh, this was advanced over the wire into the bladder without resistance. Dilute contrast was administered confirming bladder axis The stiff Amplatz wire was replaced and the catheter was removed followed by advancement of a 6 Armenian 26 cm ureteral stent [id number]. The distal pigtail was formed in the bladder and the proximal pigtail in the left renal collecting system appropriately. Contrast and saline was administered showing gradual opacification of a slightly distended bladder. Left renal access was terminated, compression applied and a small sterile dressing placed. The patient remained asymptomatic tolerating the procedure well. No immediate procedure complication. Respiratory Supervisor: Dr. Duarte Estimated blood loss: None Radiation dose Air Kerma: 39.6 mGy; . Procedure Note Damian Duarte MD - 12/10/2024 [facility] [address], [place] [address] Procedure Nephrostomy tube placement; antegrade nephrostogram; left ureteral stentplacement. EXAM DATE/TIME: 12/10/2024 11:36 AM Indication: 69 male, presenting for left percutaneous nephrostomy accessand internal ureteral stent placement. Left renal obstruction at the levelof the bladder. Status post right retrograde ureteral stenting with theunsuccessful attempt at left ureteral stent placement. Bladder cancer.New Comparison: Outside CT abdomen pelvis 12/02/2024. Technique: Informed verbal and written consent was obtained from thepatient, patient's medical power of attorney lawyer. The procedure was discussedincluding rationale, alternatives, benefits and risks including infection,damage to the kidney, bleeding, related to placement of failure to place astent or nephrostomy catheter. Patient was brought to procedure suite and positioned prone on theprocedure table. Patient was positioned prone. Initial survey ultrasoundshows mild left hydronephrosis. Ultrasound images were saved. A left renallower pole dilated calyx was the identified and chosen for percutaneousaccess. The left posterior flank was prepped and draped in usual sterilefashion. Intravenous sedation was administered by a qualified interventionalradiology nurse with continuous cardiorespiratory monitoring includingpulse, blood pressure, and oxygen saturation, under supervision of theinterventional radiologist. Total intraprocedure [id number] time with the radiologist includingsedation time was 23 minutes. Medications: Ceftriaxone 1 g IV Versed 1 mg IV Fentanyl 25 mcg IV Sterile ultrasound technique, and maximum sterile barrier techniqueincluding hand hygiene, and skin preparation was employed for theprocedure. 1% lidocaine was administered for local anesthesia at the skinand deeper soft tissues down to the renal capsule. A small skin incisionmade through which a 22-gauge needle was advanced under ultrasoundguidance into the targeted left renal lower pole calyx there isdegenerative clear urine. Dated contrast was also administered anephroscopy confirming collecting system access. A microwire was placed followed by placement of a transitionalmicropuncture sheath system. The inner stiffener and and sheath wereremoved leaving the outer [address] A stiff Amplatz wirewas placed through the sheath which was removed followed by advancement ofa 5 Armenian Yueh, this was advanced over the wire into the bladder withoutresistance. Dilute contrast was administered confirming bladder axis The stiff Amplatz wire was replaced and the catheter was removed followedby advancement of a 6 Armenian 26 cm ureteral stent [id number]. Thedistal pigtail was formed in the bladder and the proximal pigtail in theleft renal collecting system appropriately. Contrast and saline wasadministered showing gradual opacification of a slightly distendedbladder. Left renal access was terminated, compression applied and a small steriledressing placed. The patient remained asymptomatic tolerating the procedure well. No immediate procedure complication. Respiratory Supervisor: Dr. Duarte Estimated blood loss: None Radiation dose Air Kerma: 39.6 mGy; . =====IMPRESSION:===== 1. Left percutaneous nephrostomy access site with ultrasound andfluoroscopy guidance. 2. Left antegrade nephrostogram showing hydronephroureter with distal leftureteral obstruction at the bladder.. 3. Left internal ureteral 6 Armenian 26 cm stent placed in satisfactoryposition. 4. No immediate procedure complication. Ordered By: TERE YBARRA Interpreted By: Damian Duarte MD, 12/10/2024 3:25 PM us Tere Ybarra MD INTERVENTIONAL RADIOLOGY [facility] al Result * PLATELET COUNT, AUTO (12/10/2024 1:00 PM CDT) PLT 228 130 - 400 x10'3/uL 12/10/2024 1:32 PM CDT [facility] MPV 11.3 9.3 - 12.2 FL 12/10/2024 1:32 PM CDT [facility] 12/10/2024 1:00 PM CDT us Damian Duarte MD LABORATORY Final Result [facility] [address] [place] [address], [place] [phone] * PTT, PARTIAL THROMBOPLASTIN TIME (12/10/2024 1:00 PM CDT) PTT 30.6 25.1 - 36.5 SEC 12/10/2024 2:05 PM CDT [facility] 12/10/2024 1:00 PM CDT us Damian Duarte MD LABORATORY Final Result Performing Organization Address City/[facility] Co de Phone Number [facility] [address] [place] [address], [place] [phone] * PROTIME/INR, VENOUS (12/10/2024 1:00 PM CDT) PROTIME 12.5 10.2 - 12.9 SEC 12/10/2024 2:05 PM CDT [facility] INR 1.1 12/10/2024 2:05 PM CDT [facility] Comment: Recommended INR Therapeutic Goals: 2.0-3.0 Routine Therapy 2.5-3.5 Mechanical Prosthetic Valves (High Risk) 12/10/2024 1:00 PM CDT us Damian Duarte MD LABORATORY Final Result Performing Organization Address City/[facility] Co de Phone Number [facility] [address] [place] [address], [place] [phone] * CT LUNG SCREENING (12/22/2021 12:26 PM CDT) Anatomical Region Laterality Modality Chest Computed Tomogra phy 12/28/2021 7:30 PM CDT Impressions 12/29/2021 2:23 PM CDT IMPRESSION: 1. Lung-RADS Category 2: Benign appearance or behavior. Nodules with a very low likelihood of becoming a clinically active cancer due to size or lack of growth. 3. Other incidental findings as above. RECOMMENDATIONS: Follow-up LDCT Chest in 12 months (on or around 12/22/2022). Thank you for choosing the [facility]'s Lung Screening Program. Referred By: RAYA LOZOYA Interpreted By: Monty You MD, 12/28/2021 7:30 PM Narrative 12/29/2021 2:23 PM CDT EXAM: LUNG SCREENING LOW-DOSE CT THORAX WITHOUT CONTRAST DATE: 12/22/2021 HISTORY: Asymptomatic patient meeting NCCN high-risk criteria for lung screening. COMPARISON: 04/01/2019 TECHNIQUE: Noncontrast, helical, low-dose CT (LDCT) chest per standard departmental protocol. Automated exposure control was utilized for dose reduction. FINDINGS: Lung Screening Specific (LUNG-RADS): Nodule ID: 3 Segment/lobe: Left upper lobe Type:Solid Axial image: 51 Status: Stable Average diameter: 11 mm Lung-RADS category: 2 Nodule ID: 4 Segment/lobe: Right upper lobe Type:Solid Axial image: 54 Status: Stable Average diameter: 10 mm Lung-RADS category: 2 Nodule ID: 1 Segment/lobe: Left lower lobe Type:Solid Axial image: 137 Status: Stable Average diameter: 6 mm Lung-RADS category: 2 Nodule ID: 2 Segment/lobe: Right middle lobe Type:Solid Axial image: 113 Status: Stable Average diameter: 5 mm Lung-RADS category: 2 Potentially Significant Incidentals (LUNG-RADS category S): None. Pulmonary Incidentals: Subpleural reticulations and bronchiectasis and early honeycombing concerning for an upper lobe predominant fibrotic process, grossly stable. Chronic hypersensitivity pneumonitis, chronic tuberculosis, inhalational lung disease are considerations among other etiologies. This is stable. Calcified granulomas indicate healed granulomatous disease. Other Incidentals: Atherosclerosis, coronary calcifications. Procedure Note Monty You MD - 12/29/2021 EXAM: LUNG SCREENING LOW-DOSE CT THORAX WITHOUT CONTRAST DATE: 12/22/2021 HISTORY: Asymptomatic patient meeting NCCN high-risk criteria for lungscreening. COMPARISON: 04/01/2019 TECHNIQUE: Noncontrast, helical, low-dose CT (LDCT) chest per standarddepartmental protocol. Automated exposure control was utilized for dosereduction. FINDINGS: Lung Screening Specific (LUNG-RADS): Nodule ID: 3 Segment/lobe: Left upper lobe Type:Solid Axial image: 51 Status: Stable Average diameter: 11 mm Lung-RADS category: 2 Nodule ID: 4 Segment/lobe: Right upper lobe Type:Solid Axial image: 54 Status: Stable Average diameter: 10 mm Lung-RADS category: 2 Nodule ID: 1 Segment/lobe: Left lower lobe Type:Solid Axial image: 137 Status: Stable Average diameter: 6 mm Lung-RADS category: 2 Nodule ID: 2 Segment/lobe: Right middle lobe Type:Solid Axial image: 113 Status: Stable Average diameter: 5 mm Lung-RADS category: 2 Potentially Significant Incidentals (LUNG-RADS category S): None. Pulmonary Incidentals: Subpleural reticulations and bronchiectasis andearly honeycombing concerning for an upper lobe predominant fibroticprocess, grossly stable. Chronic hypersensitivity pneumonitis, chronictuberculosis, inhalational lung disease are considerations among otheretiologies. This is stable. Calcified granulomas indicate healed granulomatous disease. Other Incidentals: Atherosclerosis, coronary calcifications. IMPRESSION: 1. Lung-RADS Category 2: Benign appearance or behavior. Nodules with ori low likelihood of becoming a clinically active cancer due to size orlack of growth. 3. Other incidental findings as above. RECOMMENDATIONS: Follow-up LDCT Chest in 12 months (on or around12/22/2022). Thank you for choosing the [facility]ening[facility]. Referred By: RAYA LOZOAY Interpreted By: Monty You MD, 12/28/2021 7:30 PM us Raya Lozoya PA-C CT Final Resu lt * (ABNORMAL) LIPID PANEL (08/07/2017 9:50 AM WASH OPERATOR) CHOLESTEROL 185 <200 MG/DL 08/07/2017 11:00 AM [facility] TRIGLYCERIDES 66 <150 MG/DL 08/07/2017 11:00 AM [facility] HDL 47 >40.0 MG/DL 08/07/2017 11:00 AM [facility] LDL (CALCULATED) 124.8(H) <100 MG/L 08/07/20 11:00 AM [facility] NON HDL CHOLESTEROL 138(H) <130 MG/DL 08/07/2017 11:00 AM [facility] CHOL/HDL RATIO 3.9 0.0 - 4.5 08/07/2017 11:00 AM [facility] VLDL CALCULATION 13 5 - 55 MG/DL 08/07/2017 11:00 AM [facility] LIPID INTERPRETATION 08/07/2017 11:00 AM [facility] Comment: [facility] REPORT RECOMMENDATIONS: ADULT CHILD LOW RISK: CHOLESTEROL <200 <170 TRIGLYCERIDE <150 --- HDL >=60 --- LDL <100 <110 BORDERLINE: CHOLESTEROL 200-239 170-199 TRIGLYCERIDE 150-199 --- HDL 40-59 --- LDL 100-159 110-129 HIGH RISK: CHOLESTEROL >=240 >=200 TRIGLYCERIDE >=200 --- HDL <40 --- LDL >=160 >=130 08/07/2017 9:50 AM WASH OPERATOR us Mikel Shepard MD LABORATORY Final Result [facility] [address] [place] [address], * CT CHEST WO CON (07/02/2017 10:10 AM WASH OPERATOR) Anatomical Region Laterality Modality Chest Computed Tomogra phy 07/02/2017 10:2 1 AM WASH OPERATOR Impressions 07/02/2017 10:46 AM WASH OPERATOR =====IMPRESSION:===== 1. Nodularity of the pleura particularly in the apices bilaterally. Findings are suspicious for scarring. This is grossly symmetric. Close interval follow-up such as follow-up in 3-6 months is recommended. PET scan could be considered although size of areas of nodularity is on the border of sensitivity for PET examination. Severe emphysematous change lungs and granulomatous change of the chest is seen. 2. Mild mediastinal lymphadenopathy seen. This is nonspecific. Close interval follow-up or other additional evaluation is recommended. 3. Small bowel dilatation seen. Correlate clinically. Consider CT scan abdomen and pelvis if clinically indicated. 4. Small hiatus hernia without evidence of bowel involvement. Narrative 07/02/2017 10:46 AM WASH OPERATOR EXAMINATION: CT Chest without contrast EXAM DATE/TIME: 07/02/2017 9:33 AM REASON FOR EXAM: Abnormal chest x-ray COMPARISON: 06/12/2017 TECHNIQUE: Computed tomography of the chest was obtained without administration of intravenous contrast according to routine protocol. Automated exposure control was utilized for dose reduction. FINDINGS: Pleural nodularity in the apices bilaterally is seen. This corresponds to findings on chest x-ray. Nodularity in the left apex measures 0.6 x 1.27 x 1.65 cm. More inferior area of nodularity measures 1.42 x 0.5 x 1.37 cm. The right apex shows linear pleural thickening measuring 4 mm. There is subtle pleural thickening and irregularity in the anterior lateral portion of the right chest. This measures 3 mm in thickness. Severe emphysematous change lungs bilaterally with interstitial prominence in multiple areas is seen. Bolus and bleb formation is seen which is severe. There is a small non-calcified nodule in the right middle lobe measuring 4 x 7 mm. Calcified nodule in the right lower lobe is consistent with granulomatous change. Similar findings in the right hilum are seen. 1 cm lymph node in the precarinal region is seen. 1 cm lymph node in the subcarinal region is noted. Multiple other smaller normal-sized lymph nodes are seen. Calcification of the aorta is consistent with atherosclerotic change. Hiatus hernia is seen. Mesenteric fat is suspected to extend from the abdomen into the chest in this area. No definite extension of bowel into this region is seen. Some edema is noted. There is partial visualization the abdomen with slight dilatation of some small bowel loops measuring approximately 3 cm. Multiple compression fractures in the thoracic spine are seen. The thoracic spine shows scoliosis concave to the right and upper thoracic spine concave to left in the lower thoracic spine. Procedure Note Anthony Smith MD - 07/02/2017 EXAMINATION: CT Chest without contrast EXAM DATE/TIME: 07/02/2017 9:33 AM REASON FOR EXAM: Abnormal chest x-ray COMPARISON: 06/12/2017 TECHNIQUE: Computed tomography of the chest was obtained withoutadministration of intravenous contrast according to routine protocol. Automatedexposure control was utilized for dose reduction. FINDINGS: Pleural nodularity in the apices bilaterally is seen. Thiscorresponds to findings on chest x-ray. Nodularity in the left apex measures 0.6 x1.27 x 1.65 cm. More inferior area of nodularity measures 1.42 x 0.5 x 1.37 cm.The right apex shows linear pleural thickening measuring 4 mm. There issubtle pleural thickening and irregularity in the anterior lateral portion of theright chest. This measures 3 mm in thickness. Severe emphysematous changelungs bilaterally with interstitial prominence in multiple areas is seen. Bolusand bleb formation is seen which is severe. There is a small non-calcified nodule in the right middle lobe measuring 4x 7 mm. Calcified nodule in the right lower lobe is consistent withgranulomatous change. Similar findings in the right hilum are seen. 1 cm lymph node in the precarinal region is seen. 1 cm lymph node in the subcarinal region is noted. Multiple other smaller normal-sized lymphnodes are seen. Calcification of the aorta is consistent with atherosclerotic change. Hiatus hernia is seen. Mesenteric fat is suspected to extend from theabdomen into the chest in this area. No definite extension of bowel into thisregion is seen. Some edema is noted. There is partial visualization the abdomen with slight dilatation of somesmall bowel loops measuring approximately 3 cm. Multiple compression fractures in the thoracic spine are seen. Thethoracic spine shows scoliosis concave to the right and upper thoracic spineconcave to left in the lower thoracic spine. =====IMPRESSION:===== 1. Nodularity of the pleura particularly in the apices bilaterally.Findings are suspicious for scarring. This is grossly symmetric. Close intervalfollow-up such as follow-up in 3-6 months is recommended. PET scan could beconsidered although size of areas of nodularity is on the border of sensitivity forPET examination. Severe emphysematous change lungs and granulomatous change ofthe chest is seen. 2. Mild mediastinal lymphadenopathy seen. This is nonspecific. Closeinterval follow-up or other additional evaluation is recommended. 3. Small bowel dilatation seen. Correlate clinically. Consider CT scanabdomen and pelvis if clinically indicated. 4. Small hiatus hernia without evidence of bowel involvement. Missael Gray MD CT Final Res ult * HEPATITIS A,B,& C (10/08/2014 12:10 PM WASH OPERATOR) HAV IGM NON-REACTI VE NR [facility] TO EPIC CONVERSION HEPATITIS B SURFACE AG NON-REACTI VE NR [facility] TO EPIC CONVERSION HEP B SURFACE AB NON-REACTI VE [facility] TO EPIC CONVERSION HEP B CORE TOTAL AB NON-REACTI VE NR [facility] TO EPIC CONVERSION HEPATITIS C AB NON-REACTI VE NR [facility] TO EPIC CONVERSION Comment: Result Comment: TESTING PERFORMED AT [facility], A MEMBER OF THE [facility]. 10/08/2014 12:1 0 PM WASH OPERATOR 10/08/2014 12:10 PM WASH OPERATOR Narrative [facility] TO EPIC CONVERSION - 10/11/2014 5:34 PM WASH OPERATOR 13Oct2014 7:23AM by Donovan Saba: Mr Cho, [...] Saba Result Communication: Mail Results to Patient us Donovan Saba MD LABORATORY Final Result [facility] TO EPIC CONVERSION from Last 3 Months or Most Recently Relevant to Health Maintenance Insurance [facility] [address] [id number] Care Teams Pump Service Supervisor Relationship Specialty Start Date End Date Raya Lozoya PAMarileeC [address] [place] [id number] PCP - General PHYSICIAN SENIOR FRONT END DEVELOPER 12/10/24 David Felix MD Three [facility]. 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
--- OUTSIDE RECORDS SUMMARY | 2024-12-17 01:19 | XMS_ITS | Encounter Summary ---
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 Historical Provider [facility] Final Result documented in this encounter Visit Diagnoses Not on filedocumented in this encounter Care Teams Enterprise Mobility Architect Relationship Specialty Start Date End Date Jazmin Abel MD PCP - General Family Medicine 06/12/18 01/08/22 Raya Lozoya PA [address] [place] [address] PCP - General Physician Porter Marina 01/09/22 documented as of this encounter
--- OUTSIDE RECORDS SUMMARY | 2024-12-17 01:19 | XMS_ITS | Data Portability ---
[facility] [address] [place] [address] Care Team Providers Care Deck Cadet Name Role Phone YEVGENIY LOO Primary Care Provider Assessment Encounter Date Assessment Date Assessment LastModified by Organization Details LastModified Time 01/08/2024 01/08/2024 Pt will make nurse visit for lab results. [email or web address] Not available 01/08/2024 13:13:21 Plan of Treatment Reminders Order Date Submit Date Provider Last Modified By Organization Details Last Modified Time Details Appointments ANY 15 2024 01:30P M STELLA CABRERA Not available Not available Not available ANY 15 2024 01:00P M STELLA CABRERA Not available Not available Not available Lab urinalysi s, dipstick 2024 025 VIJAY In-Office Order, Internal Use Only DO Not Attach Compendium DO Not Attach Compendium, Do Not Delete/merge, [id number] 10/06/2024 10:45:54 urinalysi s, complete 2024 025 VIJAY [facility], [address], [place], [address], 10/09/2024 08:29:50 CMP, serum or plasma 2023 024 VIJAY [facility], [address], [place], [address], 03/04/2024 08:29:45 TSH + free T4, serum 2023 024 VIJAY [facility], [address], [place], [address], 03/04/2024 08:29:44 HbA1c (hemoglob in A1c), blood 2023 024 [facility], [address], [place], [address], 03/04/2024 08:29:45 lipid panel, serum 2023 024 [facility], [address], [place], [address], 03/04/2024 08:42:52 CBC w/ auto diff 2023 024 [facility], [address], [place], [address], 03/04/2024 08:29:46 lipid panel, serum 2023 024 [facility], [address], [place], [address], 03/04/2024 08:29:44 vitamin D, 25-hydrox y, total, serum 2023 [facility], [address], [place], [address], 03/04/2024 08:29:46 Referral physical therapist referral 2023 024 [facility] (Outpatient [facility] Therapy), [address], [place], [address], 12/09/2023 14:28:21 Procedures None recorded. Surgeries None recorded. Imaging None recorded. Medication Orders fluticaso ne propionat e 115 mcg-salme terol 21 mcg/actua tion HFA inhaler 2024 025 [facility], [address] [facility] [address], [place], [address], 10/06/2024 10:03:14 tamsulosi n 0.4 mg capsule 2024 025 [facility], [address] [place] [address], [id number], 10/06/2024 09:51:10 albuterol sulfate HFA 90 mcg/actua tion aerosol inhaler 2023 024 [facility], [address] [place] [address], [id number], 01/08/2024 09:22:35 atorvasta tin 40 mg tablet 2023 024 [facility], [address] [place] [address], [id number], 03/12/2024 14:19:05 Patient TargetsNo targets recorded. Patient [...] uIU/m L 0.450- 4.500 Not Available [facility] ([facility]) [address] [place], [address], 03/04/2024 08:29:44 03/03/2003/04/2024 TSH+F REE T4 T4,free(dire ct) 1.19 NG/dL 0.82-1 .77 Not Available [facility] ([facility]) [address] [place], [address], 03/04/2024 08:29:44 03/03/20 24 03/04/2024 LIPID PANEL WITH LDL/H DL RATIO cholesterol, total 164 mg/dL 100-19 9 Not Available [facility] ([facility]) [address] [place], [address], 03/04/2024 08:29:44 03/03/20 24 03/04/2024 LIPID PANEL WITH LDL/H DL RATIO triglyceride s 64 mg/dL 0-149 Not Available [facility] ([facility]) [address] [place], [address], 03/04/2024 08:29:44 03/03/20 24 03/04/2024 LIPID PANEL WITH LDL/H DL RATIO HDL cholesterol 38 mg/dL >39 below low normal Not Available [facility] ([facility]) [address] [place], [address], 03/04/2024 08:29:44 03/03/20 24 03/04/2024 LIPID PANEL WITH LDL/H DL RATIO VLDL cholesterol carla 13 mg/dL 5-40 Not Available [facility] ([facility]) [address] [place], [address], 03/04/2024 08:29:44 03/03/2003/04/2024 LIPID PANEL WITH LDL/H DL RATIO LDL chol calc ([facility]) 113 mg/dL 0-99 above high normal Not Available [facility] ([facility]) [address] [place], [address], 03/04/2024 08:29:44 03/03/20 24 03/04/2024 LIPID PANEL WITH LDL/H DL RATIO LDL/HDL ratio 3.0 ratio 0.0-3. 6 LDL/H DL Ratio Men Women 1/2 Avg.R isk 1.0 1.5 Avg.R isk 3.6 3.2 2X Avg.R isk 6.2 5.0 3X Avg.R isk 8.0 6.1 Not Available [facility] ([facility]) [address] [place], [address], 03/04/2024 08:29:44 03/03/20 24 03/04/2024 COMP. METAB OLIC PANEL (14) glucose 91 mg/dL 70-99 Not Available [facility] ([facility]) [address] [place], [address], 03/04/2024 08:29:45 03/03/20 24 03/04/2024 COMP. METAB OLIC PANEL (14) BUN 18 mg/dL 8-27 Not Available [facility] ([facility]) [address] [place], [address], 03/04/2024 08:29:45 03/03/20 24 03/04/2024 COMP. METAB OLIC PANEL (14) creatinine 1.26 mg/dL 0.76-1 .27 Not Available [facility] ([facility]) [address], [place], [address], 03/04/2024 08:29:45 03/03/20 24 03/04/2024 COMP. METAB OLIC PANEL (14) eGFR 63 mL/mi n/1.7 3 >59 Not Available [facility] ([facility]) [address] [place], [address], 03/04/2024 08:29:45 03/03/20 24 03/04/2024 COMP. METAB OLIC PANEL (14) BUN/creatini ne ratio 14 10-24 Not Available [facility] ([facility]) [address] [place], [address], 03/04/2024 08:29:45 03/03/20 24 03/04/2024 COMP. METAB OLIC PANEL (14) sodium 137 mmol/ L 134-14 4 Not Available [facility] ([facility]) [address] [place], [address], 03/04/2024 08:29:45 03/03/20 24 03/04/2024 COMP. METAB OLIC PANEL (14) potassium 4.6 mmol/ L 3.5-5. 2 Not Available [facility] ([facility]) [address] [place], [address], 03/04/2024 08:29:45 03/03/20 24 03/04/2024 COMP. METAB OLIC PANEL (14) chloride 105 mmol/ L 96-106 Not Available [facility] ([facility]) [address] [place], [address], 03/04/2024 08:29:45 03/03/20 24 03/04/2024 COMP. METAB OLIC PANEL (14) carbon dioxide, total 18 mmol/ L 20-29 below low normal Not Available [facility] ([facility]) [address] [place], [address], 03/04/2024 08:29:45 03/03/20 24 03/04/2024 COMP. METAB OLIC PANEL (14) calcium 8.9 mg/dL 8.6-10 .2 Not Available [facility] ([facility]) [address] [place], [address], 03/04/2024 08:29:45 03/03/20 24 03/04/2024 COMP. METAB OLIC PANEL (14) protein, total 6.8 g/dL 6.0-8. 5 Not Available [facility] ([facility]) [address] [place], [address], 03/04/2024 08:29:45 03/03/20 24 03/04/2024 COMP. METAB OLIC PANEL (14) albumin 3.6 g/dL 3.9-4. 9 below low normal Not Available [facility] ([facility]) [address] [place], [address], 03/04/2024 08:29:45 03/03/20 24 03/04/2024 COMP. METAB OLIC PANEL (14) globulin, total 3.2 g/dL 1.5-4. 5 Not Available [facility] ([facility]) [address], [place], [address], 03/04/2024 08:29:45 03/03/20 24 03/04/2024 COMP. METAB OLIC PANEL (14) bilirubin, total 0.5 mg/dL 0.0-1. 2 Not Available [facility] ([facility]) [address] [place], [address], 03/04/2024 08:29:45 03/03/20 24 03/04/2024 COMP. METAB OLIC PANEL (14) alkaline phosphatase 105 IU/L 44-121 Not Available [facility]) [address] [place], [address], 03/04/2024 08:29:45 03/03/20 24 03/04/2024 COMP. METAB OLIC PANEL (14) AST (SGOT) 16 IU/L 0-40 Not Available [facility] ([facility]) [address], [place], [address], 03/04/2024 08:29:45 03/03/20 24 03/04/2024 COMP. METAB OLIC PANEL (14) ALT (SGPT) 12 IU/L 0-44 Not Available [facility] ([facility]) [address], [place], [address], 03/04/2024 08:29:45 03/03/2003/04/2024 HEMOG LOBIN A1C hemoglobin A1C 5.6 % 4.8-5. 6 Predi abete s: 5.7 - 6.4 Diabe lina: >6.4 Glyce lyssa contr ol for adult s with diabe lina: <7.0 Not Available [facility] ([facility]) [address] [place], [address], 03/04/2024 08:29:45 03/03/20 24 03/04/2024 CBC WITH DIFFE RENTI AL/PL ATELE T WBC 7.1 x10e3 /uL 3.4-10 .8 Not Available [facility] ([facility]) [address], [place], [address], 03/04/2024 08:29:46 03/03/2003/04/2024 CBC WITH DIFFE RENTI AL/PL ATELE T RBC 4.40 x10e6 /uL 4.14-5 .80 Not Available [facility] ([facility]) [address], [place], [address], 03/04/2024 08:29:46 03/03/2003/04/2024 CBC WITH DIFFE RENTI AL/PL ATELE T hemoglobin 15.2 g/dL 13.0-1 7.7 Not Available [facility] ([facility]) [address], [place], [address], 03/04/2024 08:29:46 03/03/2003/04/2024 CBC WITH DIFFE RENTI AL/PL ATELE T hematocrit 45.0 % 37.5-5 1.0 Not Available [facility] ([facility]) [address] [place], [address], 03/04/2024 08:29:46 03/03/2003/04/2024 CBC WITH DIFFE RENTI AL/PL ATELE T MCV 102 fL 79-97 above high normal Not Available [facility] ([facility]) [address] [place], [address], 03/04/2024 08:29:46 03/03/2003/04/2024 CBC WITH DIFFE RENTI AL/PL ATELE T MCH 34.5 pg 26.6-3 3.0 above high normal Not Available [facility] ([facility]) [address] [place], [address], 03/04/2024 08:29:46 03/03/20 24 03/04/2024 CBC WITH DIFFE RENTI AL/PL ATELE T MCHC 33.8 g/dL 31.5-3 5.7 Not Available [facility] ([facility]) [address], [place], [address], 03/04/2024 08:29:46 03/03/20 24 03/04/2024 CBC WITH DIFFE RENTI AL/PL ATELE T RDW 12.2 % 11.6-1 5.4 Not Available [facility] ([facility]) [address], [place], [address], 03/04/2024 08:29:46 03/03/20 24 03/04/2024 CBC WITH DIFFE RENTI AL/PL ATELE T platelets 193 x10e3 /uL 150-45 0 Not Available [facility] ([facility]) [address], [place], [address], 03/04/2024 08:29:46 03/03/20 24 03/04/2024 CBC WITH DIFFE RENTI AL/PL ATELE T neutrophils 65 % notest ab. Not Available [facility] ([facility]) [address], [place], [address], 03/04/2024 08:29:46 03/03/20 24 03/04/2024 CBC WITH DIFFE RENTI AL/PL ATELE T lymphs 21 % notest ab. Not Available [facility] ([facility]) [address], [place], [address], 03/04/2024 08:29:46 03/03/20 24 03/04/2024 CBC WITH DIFFE RENTI AL/PL ATELE T monocytes 11 % notest ab. Not Available [facility] ([facility]) [address] [place], [address], 03/04/2024 08:29:46 03/03/20 24 03/04/2024 CBC WITH DIFFE RENTI AL/PL ATELE T eos 3 % notest ab. Not Available [facility] ([facility]) [address] [place], [address], 03/04/2024 08:29:46 03/03/20 24 03/04/2024 CBC WITH DIFFE RENTI AL/PL ATELE T basos 0 % notest ab. Not Available [facility] ([facility]) [address], [place], [address], 03/04/2024 08:29:46 03/03/2003/04/2024 CBC WITH DIFFE RENTI AL/PL ATELE T neutrophils (absolute) 4.5 x10e3 /uL 1.4-7. 0 Not Available [facility] ([facility]) [address], [place], [address], 03/04/2024 08:29:46 03/03/20 24 03/04/2024 CBC WITH DIFFE RENTI AL/PL ATELE T lymphs (absolute) 1.5 x10e3 /uL 0.7-3. 1 Not Available [facility] ([facility]) [address], [place], [address], 03/04/2024 08:29:46 03/03/2003/04/2024 CBC WITH DIFFE RENTI AL/PL ATELE T monocytes(ab solute) 0.8 x10e3 /uL 0.1-0. 9 Not Available [facility] ([facility]) [address] [place], [address], 03/04/2024 08:29:46 03/03/20 24 03/04/2024 CBC WITH DIFFE RENTI AL/PL ATELE T eos (absolute) 0.2 x10e3 /uL 0.0-0. 4 Not Available [facility] ([facility]) [address] [place], [address], 03/04/2024 08:29:46 03/03/20 24 03/04/2024 CBC WITH DIFFE RENTI AL/PL ATELE T baso (absolute) 0.0 x10e3 /uL 0.0-0. 2 Not Available [facility] ([facility]) [address], [place], [address], 03/04/2024 08:29:46 03/03/20 24 03/04/2024 CBC WITH DIFFE RENTI AL/PL ATELE T immature granulocytes 0 % notest ab. Not Available [facility] ([facility]) [address], [place], [address], 03/04/2024 08:29:46 03/03/20 24 03/04/2024 CBC WITH DIFFE RENTI AL/PL ATELE T immature grans (abs) 0.0 x10e3 /uL 0.0-0. 1 Not Available [facility] ([facility]) [address], [place], [address], 03/04/2024 08:29:46 03/03/2003/04/2024 VITAM IN D, 25-HY DROXY vitamin D, [...] Medic ine). 2009. Dieta ry refer ence intak es for calci um and D. Jess tompkins [place]: The [facility] . 2. Dilshad fountain [place], Luis bauman [place], Verna off-F errar i CASTANEDA, et al. Evalu ation , treat ment, and preve ntion of vitam in D defic iency : an Endoc rine Socie ty clini carla pract ice guide line. JCEM. 2010; 96(7) :1911 -30. Not Available [facility] ([facility]) [address], [place], [address], 03/04/2024 08:29:46 10/06/1910/09/2024 MICRO SCOPI C EXAMI NATIO N WBC >30 /hpf 0-5 abnormal Not Available [facility] ([facility]) [address], [place], [address], 10/09/2024 08:29:50 10/06/19 25 10/09/2024 MICRO SCOPI C EXAMI NATIO N RBC None seen /hpf 0-2 Not Available [facility] ([facility]) [address], [place], [address], 10/09/2024 08:29:50 10/06/1910/09/2024 MICRO SCOPI C EXAMI NATIO N epithelial cells (non renal) 0-10 /hpf 0-10 Not Available [facility] ([facility]) [address], [place], [address], 10/09/2024 08:29:50 10/06/19 25 10/09/2024 MICRO SCOPI C EXAMI NATIO N casts None seen /lpf nonese en Not Available [facility] ([facility]) [address], [place], [address], 10/09/2024 08:29:50 10/06/1910/09/2024 MICRO SCOPI C EXAMI NATIO N mucus threads Presen t notest ab. Not Available [facility] ([facility]) [address], [place], [address], 10/09/2024 08:29:50 10/06/1910/09/2024 MICRO SCOPI C EXAMI NATIO N bacteria Many nonese en/few abnormal Not Available [facility] ([facility]) [address] [place], [address], 10/09/2024 08:29:50 10/06/1906 1010/09/2024 URINA LYSIS , COMPL ETE specific gravity 1.014 1.005- 1.030 Resul ts from sub-o ptima l speci men perfo rmed at the [facility]. Not Available [facility] ([facility]) [address] [place], [address], 10/09/2024 08:29:50 10/06/19 25 10/09/2024 URINA LYSIS , COMPL ETE pH 5.5 5.0-7. 5 Not Available [facility] ([facility]) [address] [place], [address], 10/09/2024 08:29:50 10/06/19 25 10/09/2024 URINA LYSIS , COMPL ETE urine-color YELLOW yellow Not Available [facility] ([facility]) [address] [place], [address], 10/09/2024 08:29:50 10/06/19 25 10/09/2024 URINA LYSIS , COMPL ETE appearance CLEAR clear Not Available [facility] ([facility]) [address] [place], [address], 10/09/2024 08:29:50 10/06/19 25 10/09/2024 URINA LYSIS , COMPL ETE WBC esterase 2+ negati ve abnormal Not Available [facility] ([facility]) [address] [place], [address], 10/09/2024 08:29:50 10/06/19 25 10/09/2024 URINA LYSIS , COMPL ETE protein NEGATI VE negati ve/tra ce Not Available [facility] ([facility]) [address] [place], [address], 10/09/2024 08:29:50 10/06/19 25 10/09/2024 URINA LYSIS , COMPL ETE glucose NEGATI VE negati ve Not Available [facility] ([facility]) [address] [place], [address], 10/09/2024 08:29:50 10/06/19 25 10/09/2024 URINA LYSIS , COMPL ETE ketones NEGATI VE negati ve Not Available [facility] ([facility]) [address] [place], [address], 10/09/2024 08:29:50 10/06/19 25 10/09/2024 URINA LYSIS , COMPL ETE occult blood NEGATI VE negati ve Not Available [facility] ([facility]) [address], [place], [address], 10/09/2024 08:29:50 10/06/19 25 10/09/2024 URINA LYSIS , COMPL ETE bilirubin NEGATI VE negati ve Not Available [facility] ([facility]) [address] [place], [address], 10/09/2024 08:29:50 10/06/19 25 10/09/2024 URINA LYSIS , COMPL ETE urobilinogen ,semi-qn 0.2 mg/dL 0.2-1. 0 Not Available [facility] ([facility]) [address] [place], [address], 10/09/2024 08:29:50 10/06/19 25 10/09/2024 URINA LYSIS , COMPL ETE nitrite, urine NEGATI VE negati ve Not Available [facility] ([facility]) [address] [place], [address], 10/09/2024 08:29:50 10/06/19 25 10/09/2024 URINA LYSIS , COMPL ETE microscopic examination SEE BELOW: Micro scopi c was indic ated and was perfo rmed. Not Available [facility] ([facility]) [address] [place], [address], 10/09/2024 08:29:50 10/06/19 25 10/11/2024 URINE CULTU RE, ROUTI NE urine culture, routine Final report Not Available [facility] ([facility]) [address], [place], [address], 10/11/2024 15:08:49 10/06/19 25 10/11/2024 URINE CULTU RE, ROUTI NE result 1 Commen t Mixed uroge nital jose 25,00 0-50, 000 colon y formi ng units per mL Not Available [facility] ([facility]) [address], [place], [address], 10/11/2024 15:08:49 10/06/1910/06/2024 urina lysis , dipst ick Leukocytes Modera [...] 10/06/1910/06/2024 urina lysis , dipst ick Specific Constantine 1.020 Not Available In-Off ice Order Internal [...] Attach Compendium, Do Not Delete/merge, 10/06/2024 09:56:07 12/11/1912/10/2024 Plate lets [#/vo lume] in Blood platelets [#/volume] in blood 228 text: 130 - 400 x10'3/ uL PLT 228 130 - 400 x10'3 /uL 12/10 1:32 PM CDT [facility] Not Available Not Available 12/11/2024 10:19:49 12/11/19 25 12/10/2024 Plate lets [#/vo lume] in Blood platelet [entitic mean volume] in blood 11.3 text: 9.3 - 12.2 fL MPV 11.3 9.3 - 12.2 FL 12/10 1:32 PM [facility]T [facility] Not Available Not Available 12/11/2024 10:19:49 12/11/1912/10/2024 aPTT in Plate let poor plasm a by Coagu latio n assay APTT in platelet poor plasma by coagulation assay 30.6 text: 25.1 - 36.5 sec PTT 30.6 25.1 - 36.5 SEC 12/10 2:05 PM CDT [facility] Not Available Not Available 12/11/2024 10:19:49 12/11/19 25 12/10/2024 Proth rombi n time (PT) prothrombin time (PT) 12.5 text: 10.2 - 12.9 sec PROTI ME 12.5 10.2 - 12.9 SEC 12/10 2:05 PM CDT [facility] Not Available Not Available 12/11/2024 10:19:49 12/11/19 25 12/10/2024 Proth rombi n time (PT) INR in platelet poor plasma by coagulation assay 1.1 INR 1.1 12/10 2:05 PM CDT [facility] Not Available Not Available 12/11/2024 10:19:49 11/11/19 24 11/10/2023 CT, brain , w/o contr ast No observ ation record ed. [facility] [address], [place], [address], 11/12/2023 08:32:46 11/14/19 24 11/10/2023 lab* No observ ation record ed. [address] [address], [place], [address], 11/14/2023 16:51:45 11/14/19 24 11/10/2023 lab* No observ ation record ed. [address] [address], [place], [address], 11/14/2023 16:51:37 11/14/19 24 11/10/2023 lab* No observ ation record ed. [address] [address], [place], [address], 11/14/2023 16:51:16 11/15/19 24 11/10/2023 CT, chest , w/o contr ast No observ ation record ed. [address] [address], [place], [address], 11/18/2023 19:03:33 12/04/19 25 12/02/2024 CT, abdom en + pelvi s, w/o contr ast No observ ation record ed. [address] [address], [place], [address], 12/03/2024 10:11:52 12/04/1912/03/2024 XR, urogr am, retro grade No observ ation record ed. [address] [address], [place], [address], 12/04/2024 08:57:18 12/05/19 25 12/03/2024 XR, chest , 2 view No observ ation record ed. [address] [address], [place], [address], 12/04/2024 12:36:09 12/05/19 25 12/04/2024 lab* No observ ation record ed. [email or web address] [address], [place], [address], 12/08/2024 16:24:59 12/08/19 25 12/07/2024 lab* No observ ation record ed. [address], [place], [address], 12/08/2024 16:24:52 12/12/19 25 12/02/2024 trans -thor acic echoc ardio gram (TTE) (PROC ) No observ ation record ed. [facility] Not Available 2024 15:08:48 Result Notes None recorded. Problems Name Problem SNOMED Code Status Onset Date Resolution Date Notes Provider Name and Address Organization Details Recorded Time Pulmonary emphysema 20054271 Active 2021 STELLA CABRERA Attn: Onofre g,[address] [facility], [place], [address], [place] [facility] 3 09:39:54 Chronic atrial fibrillation 236905215 Active 2021 STELLA CABRERA Attn: Accountin g,[address] [facility], [place], [address], [place] [facility] 3 09:39:51 Osteoporosis 92745152 Active 2021 STELLA CABRERA Attn: Accountin g,[address] [facility], [place], [address], [place] [facility] 3 09:39:53 Retention of urine 537560595 Active 2022 STELLA CABRERA Attn: Accountin g,[address] [facility], [place], [address], [place] [facility] 3 11:26:02 Screening for malignant neoplasm of colon Active 2022 report in chart, due for repeat 2025 STELLA CABRERA Attn: Dodiein g,[address] [facility], [place], [address], [place] [facility] 3 11:02:28 Hyperlipidemi a 82694435 Active 2023 STELLA CABRERA Attn: Onofre singletary,[address] [facility], [place], [address], [facility] 14:16:29 Notes:Some problems listed i n Document: #[id number] could not be added to this patient's chart. Please review this document and add these problems to the patient's chart manually as needed. Problem Notes None recorded. Procedures Surgical History None recorded. Imaging Results Imaging Date Name Status LastModified by Organization Details LastModified Time 11/10/2023 CT, brain, w/o contrast completed [address] [address], [place], [address], 11/12/2023 08:32:46 11/10/2023 lab* completed [address] [address], [place], [address], 11/14/2023 16:51:45 11/10/2023 lab* completed [address] [address], [place], [address], 11/14/2023 16:51:37 11/10/2023 lab* completed [address] [address], [place], [address], 11/14/2023 16:51:16 11/10/2023 CT, chest, w/o contrast completed [address], [address], 11/18/2023 19:03:33 12/02/2024 CT, abdomen + pelvis, w/o contrast completed [address], [address], 12/03/2024 10:11:52 12/03/2024 XR, urogram, retrograde completed [address], [address], 12/04/2024 08:57:18 12/03/2024 XR, chest, 2 view completed [address], [place], [address], 12/04/2024 12:36:09 12/04/2024 lab* completed [address], [place], [address], 12/08/2024 16:24:59 12/07/2024 lab* completed [address], [place], [address], 12/08/2024 16:24:52 12/02/2024 trans-thoracic echocardiogram (TTE) (PROC) completed [facility] Information not available 12/11/2024 15:08:48 Procedure Notes None recorded. Medical Equipment None [...] Updated DateTime 4 185.42 cm 27.1 kg/m2 20965.8 4 g 97 % 97 % 105 /min 20 /min 110 mm[Hg] 70 mm[Hg] Diane Mcclain MA [facility] 4 15:18:38 Date Recorded Body height Body mass index (BMI) Body weight Oxygen saturation Oxygen saturation in Arterial blood by Pulse oximetry Heart rate Respiratory rate Systolic blood pressure Diastolic blood pressure Provider Name and Address Organization Details Last Updated DateTime 4 185.42 cm 27.1 kg/m2 03146.8 4 g 97 % 97 % 75 /min 18 /min 104 mm[Hg] 68 mm[Hg] Diane Mcclain MA [facility] 4 09:15:27 Date Recorded Body height Body mass index (BMI) Body weight Oxygen saturation Oxygen saturation in Arterial blood by Pulse oximetry Heart rate Respiratory rate Systolic blood pressure Diastolic blood pressure Provider Name and Address Organization Details Last Updated DateTime 5 185.42 cm 26.6 kg/m2 22038.4 7 g 97 % 97 % 68 /min 18 /min 140 mm[Hg] 80 mm[Hg] Diana Gottlieb MA [facility] 5 09:31:59 Date Recorded Systolic blood pressure Diastolic blood pressure Provider Name and Address Organization Details Last Updated DateTime 10/06/2024 110 mm[Hg] 70 mm[Hg] STELLA CABRERA Attn: Accounting,[address] [facility], [place], [address], [place] - [facility] 10/06/2024 11:57:36 Social History Question Answer Notes LastModified by Organizat ion Details LastModified Time Tobacco Smoking Status Former Smoker Griselelsi Arenas MA [facility], [place] - [facility] 05/22/2018 10:57:33 Do You Have An [...] Anxious, Or Unable To Sleep At Night)? [id number] Information not available 12/29/2020 Do You Use Any Illicit Or Recreational Drugs? Yes Marijuana Occasionally Information not available 12/29/2020 Do You Use Sunscreen Routinely? Yes [email or web address] Information not available 11/28/2021 Has Tobacco Cessation Counseling Been Provided? Yes [email or web address] Information not available 02/07/2023 On What Date [...] Response Coronary Artery Disease N Other N Atrial Fibrillation Y High Blood Pressure N Thyroid Problems N Kidney or Bladder Problems N GI Problems N Depression N COPD Y Blood Clots N Skin Problems Y Anemia N Heart Attack (ID) N Diabetes N Anxiety Disorder Y Muscle, Joint, or Bone Problems Y Seizures/Epilepsy N Acid Reflux (GERD) Y Cancer N Stroke N Asthma N Allergies Y ADHD N High Cholesterol N Hepatitis N Liver Disease N Headaches Y Osteoporosis Y Heart Failure Y Immunizations Vaccine Type Date Status Note Provider Nam e and Address Organization Details Recorded Time Influenza, split virus, quadrivalent, PF 05/07/2018 completed Not Available [employer] 0 02:35:59 Past Encounters Encounter ID Performer Location Encounter Start Date Encounter Closed Date Diagnosis/Indication Diagnosis SNOMED-CT Code Diagnosis ICD10 Code Diagnosis Note [id number] Jazmin Abel MD [facility] [address] [place] [address] 04/22/2018 11:02:50 04/22/2018 13:23:37 Moderate persistent asthma 903157686 J45.40 continue incruse ellipta and ventolin Osteoporosis 55175093 M8 1.0 poor healing after fracture of the right shoulder Pulmonary emphysema 8743 3001 J43.9 Atrial fibrillation 4943 6004 I48.91 had heart cath; no blockage of arteries; get occasional pain and palpitatio ns; takes aspirin. Arthritis 8675081 M19.90 takes baclofen for muscle spasms History of tobacco use 3585927776 103 Z87.891 discussed screening for early lung cancer. Pain of mu ltiple joints 36797473 M25.50 Standard ed adult depression screening tool completed 7527762302 56939 Z13.89 patient has mild depression . Body mass index 25-29 - overweight 009812118 Z68.25 discussed low fat, low carb diet, and encouraged exercise. It should be noted that patient has lost 2 inches of height due to his osteoporos is, so his actual BMI would be in the normal range if he had not had problems with osteoporos is. [id number] Jazmin Abel MD [facility] [address] [place] [address] 05/06/2018 14:40:41 05/06/2018 16:52:20 Atrial fibrillation 87365456 I48.91 had heart cath; no blockage of arteries; get occasional pain and palpitatio ns; takes aspirin. Osteoporosis 45359683 M8 1.0 poor healing after fracture of the right shoulder Active or passive immunization 305872811 Z23 risks and benefits of immunizati ons reviewed. History of disorder of vision 3900942906 26962 Z86.69 may have retinal detachment or ocular migraines. [id number] Jazmin Abel MD [facility] [address] [place] [address] 05/22/2018 10:36:31 05/27/2018 14:48:08 Persistent insomnia 858163959 G47.09 uses CPAP Obstructiv e sleep apnea of adult 6037764679 103 G47.33 has a machine, needs a good nasal mask--I would recommend [facility] nasal mask, extra large due to large nose. [id number] Jazmin Abel MD [facility] [address] [place] [address] 06/24/2018 13:43:02 07/02/2018 16:09:29 Bilateral carpal tunnel syndrome 7234698171 8477225 G56.03 numb and painful along ulnar nerve distributi on; weakness worse with driving. Unsteady when walking 22 955047 R26.89 likely to fall and become injured. Generalize d osteoarthritis 314684909 M15.9 hurts to sit for a prolonged period of time, trouble going up or down stairs, gets back spasms with prolonged standing. Osteoporos is makes more likely to have a fracture if he falls but he is not steady while walking. Presbyopia 45665920 H52. 4 diplopia, trouble like horizontal lines flipping across vision. [id number] Rashad Blanco MD [facility] [address] [place] [address] 07/09/2018 11:05:05 07/11/2018 15:08:29 Chronic blepharitis 97134713 H01.009 Twitching eye 058749604 H55.89 [id number] Jazmin Abel MD [facility] [address] [place] [address] 04/03/2019 11:36:01 04/06/2019 09:49:19 Angina pectoris 961590871 I20.9 Pain in left knee 588737 3220 17554 M25.562 Screening for malignant neoplasm of colon 907234128 Z12.11 Pain of bi lateral hip joints 7337823120 5096954 M25.551 M25.552 Pain of ri ght shoulder joint 3297962162 7477712 M25.511 Standardiz ed adult depression screening tool completed 3047678772 73327 Z13.89 patient has mild depression . Will be monitored. Denies suicidal or homicidal ideation, enjoys being with friends, sleeping and eating normally. [id number] Jazmin Abel MD [facility] [address] [place] [address] 06/11/2019 16:52:08 06/15/2019 10:03:16 Coronary atherosclerosis 839836914 I25.119 intermitte nt chest pain, and calcium deposits in coronary arteries. Patient has prescripti on for NTG. Lumbago with sciatica 20 6879745 M54.40 Depression screening 171 698085 Z13.31 Mild depression ; will monitor and consider adding an SSRI. Chronic ob structive pulmonary disease 33050994 J44.9 Patient uses Incruse ellipta to prevent bronchospa sm, and albuterol inhaler as needed for wheezing. [id number] Jazmin Abel MD [facility] [address] [place] [address] 07/23/2019 15:51:39 07/30/2019 03:47:29 [id number] Jazmin Abel MD [facility] [address] [place] [address] 08/27/2019 13:43:29 09/01/2019 00:09:42 [id number] Jazmin Abel MD [facility] [address] [place] [address] 12/29/2020 10:04:23 12/29/2020 17:00:49 Change in skin lesion 301135120 L98.9 non healing lesion in left side of neck under watson for 2.5 years. Vitamin D deficiency 347 88264 E55.9 Macrocytos is - no anemia 432224582 D75.89 Osteoporosis 28136053 M8 1.0 poor healing after fracture of the right shoulder Angina pectoris 92739416 0 I20.9 Pain in left arm 4677344 00 M79.602 Moderate p ersistent asthma 791658234 J45.40 continue incruse ellipta and ventolin Depression screening 171 191903 Z13.31 mild to minimal depression [id number] Petey melgar MD [facility] [address] [place] [address] 11/28/2021 13:39:49 11/29/2021 10:49:48 Pulmonary emphysema 24595603 J43.[address] scan 2019quit smoking 2019SOB with walking up inclineno SOB at restcontro lled on on ventolin and advairPEx- decreased breath sounds due to emphysemad ue for repeat low dose CT scan Osteoporosis 12630047 M8 1.0 DEXA 2018 showed osteoporos haylee alendronat edue for repeatre-c heck Vit D level Chronic at rial fibrillation 430234479 I48.20 on ASA 81 mglast saw Cardiology 2019, ddx with CAD, cardiomyop athy, and chronic A fibdue for f/u cardio Screening for malignant neoplasm of colon 357527417 Z12.11 has never had colon cancer screenno bowel changes, diarrhea, or constipati onno blood in stoolorder ed cologuard Adult heal th examination 425468936 Z00.00 routine labs Dizziness 100322517 R42 intermitte nt x1 molasts a couple seconds and then goes awayoccurs with position changessit ting to standing, laying flat on bedno concerning sxdiscusse d cardio/hailee ro/orthost atic/BPPVe ncouraged increasing fluid intakef/u if sx do not improve Depression screening 171 223242 Z13.31 PHQ 4 [id number] Petey melgar MD [facility] [address] [place] [address] 12/13/2022 09:29:48 12/13/2022 10:00:15 Chronic atrial fibrillation 454444196 I48.20 12/13/22:unk nown last time he saw cardioPEx- heart rate irregularl y irregulars tates that he has been taking his meds, chart review shows last fill 04/202211/28/21:on ASA 81 mglast saw Cardiology 2019, ddx with CAD, cardiomyop athy, and chronic A fibdue for f/u cardio Screening for malignant neoplasm of colon 605830039 Z12.11 cologuard positiveco lonoscopy 01/2022 showed adenoma, rec'd repeat in 1 yrdue for repeatwill send referral Depression screening 171 866512 Z13.31 PHQ 6 Retention of urine 53629 4002 R33.9 x1 yrfeels like he has to go and dribbles, occurs a couple times/week trial flomaxf/u in 2 wks Fracture o f multiple ribs 6355188 S22.42XA 12/06/22 CTA chest: moderate emphysema, 4 [...] 2 wks Closed fra cture of sternum 48670961 S22.20XA non-displa cedPEx- diffuse ecchymosis to mid chest/ster nal areac/w lidocaine patches and tylenol PRN [id number] Petey melgar MD [facility] [address] [place] [address] 12/28/2022 12:00:47 12/28/2022 12:52:39 Fracture of multiple ribs 0881143 S22.42XA 12/28/22:ta turner OTC pain relief 500 [...] 2 wks Closed fra cture of sternum 06437135 S22.20XA 12/28/22:pa in is improving 12/13/22:non -displaced PEx- diffuse ecchymosis to mid chest/ster nal areac/w lidocaine patches and tylenol PRN Retention of urine 51389 4002 R33.9 12/28/22:im provement with flomaxdrib chelsie has decreased 12/13/22:x1 yrfeels like he has to go and dribbles, occurs a couple times/week trial flomaxf/u in 2 wks Chronic at rial fibrillation 137727891 I48.20 12/28/22:ca rdio note 01/2022 on ASA 325refer back to Dr. Carlson 12/13/22:unk nown last time he saw cardioPEx- heart rate irregularl y irregulars tates that he has been taking his meds, chart review shows last fill 04/202211/28/21:on ASA 81 mglast saw Cardiology 2019, ddx with CAD, cardiomyop athy, and chronic A fibdue for f/u cardio Screening for malignant neoplasm of colon 050764047 Z12.11 12/28/22: Dr Burnham office aware, advised pt to contact office for appt 12/13/22:col oguard positiveco lonoscopy 01/2022 showed adenoma, rec'd repeat in 1 yrdue for repeatwill send referral Pulmonary emphysema 8743 3001 J43.9 on two inhalers, doesn't know which oneper pharmacy, was on ventolin, fluticason e- scripts have not been picked up in over 1 yrrefer to pulmf/u in 1 mo Osteoporosis 75538888 M8 1.0 DEXA 2017 showed osteoporos haylee alendronat edue for repeatre-c heck Vit D levelorder ed DEXAf/u in 1 mo Overweight 400661789 E66 .3 due for routine labs [id number] Petey melgar MD [facility] [address] [place] [address] 02/07/2023 10:44:18 02/07/2023 11:32:00 Fracture of multiple ribs 5996524 S22.42XA 02/07/23:pa in is improving 12/28/22:bernardo tompkins OTC pain relief 500 mg TIDrefill lidocaine [...] 2 wks Closed fra cture of sternum 82412343 S22.20XA 02/07/23:ab le to take deep breaths w/o painno longer needs lidocaine patches 12/28/22:pa in is improving 12/13/22:non -displaced PEx- diffuse ecchymosis to mid chest/ster nal areac/w lidocaine patches and tylenol PRN Chronic at rial fibrillation 470039415 I48.20 02/07/23:PE x- HR irregularl y irregularp [...] yrrefer to pulmf/u in 1 mo Osteoporosis 79931703 M8 1.0 02/07/23:c/ w Vit Dwill not continue alendronat egave exercises to do at home 11/28/21 DE XA 2017 showed osteoporos haylee alendronat edue for repeatre-c heck Vit D levelorder ed DEXAf/u in 1 mo Screening for malignant neoplasm of colon 023496754 Z12.11 02/07/23: colonoscop y scheduled 12/28/22: Dr Burnham office aware, advised pt to contact office for appt 12/13/22:col oguard positiveco lonoscopy 01/2022 showed adenoma, rec'd repeat in 1 yrdue for repeatwill send referral Hyperlipidemia 62688333 E78.5 refill Depression screening 171 500487 Z13.31 PHQ 3 [id number] Petey melgar MD [facility] [address] [facility] [address] 04/05/2023 10:39:19 04/08/2023 16:05:09 Chronic atrial fibrillation 220388365 I48.20 04/05/23:sa w Dr. Carlson on 02/22/23: afib- asymptomat ic, on ASA 325, [id number] 0, f/u in 6 mo, discussed results [...] chronic A fibdue for f/u cardio Osteoporosis 34931683 M8 1.0 04/05/23:DE XA 12/2022: osteopenia L [...] 1 mo Pulmonary emphysema 8743 3001 J43.9 04/05/23: w Dr. Anthony on 02/27/23: c/w airduo, [...] mo Screening for malignant neoplasm of colon 285705714 Z12.11 04/05/23:tu bular adenomas, repeat 202502/07/23: colonoscop y scheduled 12/28/22: Dr Burnham office aware, advised pt to contact office for appt 12/13/22:col oguard positiveco lonoscopy 01/2022 showed adenoma, rec'd repeat in 1 yrdue for repeatwill send referral Depression screening 171 585770 Z13.31 PHQ 0 Closed fra cture of sternum 70559275 S22.20XA 04/05/23:st ill c/o mid sternal painworse [...] nal areac/w lidocaine patches and tylenol PRN [id number] Petey melgar MD [facility] [address] [place] [address] 10/10/2023 09:07:50 10/10/2023 09:47:19 Chronic atrial fibrillation 777093755 I48.20 10/10/23: saw Dr. Carlson 08/2023, EF 40%, stopped losartanne ed consult note 04/05/23:sa w Dr. Carlson on 02/22/23: afib- asymptomat ic, on ASA 325, [id number] 0, f/u in 6 mo, discussed results [...] 1 mo Dupuytren' s contracture of finger 648801970 M72.0 bilateral pinky fingersa/w intermitte nt numbnessre mark to hand surgery Dizziness 993971586 R42 10/10/23: x3 wksoccurs with position changes [...] sx do not improve Depression screening 171 192007 Z13.31 PHQ 8 [id number] Petey melgar MD [facility] [address] [place] [address] 11/14/2023 15:13:06 11/14/2023 15:48:53 Neck pain 91650108 M54.2 s/p fall 11/10/23wen t to ED, CT brain, CT C spine, CT chest, XR R shoulder normaltaki ng tizanidine with some improvemen tc/o pulling to R side of neck and R shoulderPE x- FROM R shoulder joint and C spinept requesting PT for neck pain, will send referral Dupuytren' s contracture of finger 910195984 M72.0 11/14/23: saw Dr. Hayes 10/31/23- dupuytren' s disease R hand, discussed surgery vs injections 10/10/23:bi lateral pinky fingersa/w intermitte nt numbnessre mark to hand surgery [id number] Petey melgar MD [facility] [address] [place] [address] 01/08/2024 09:11:55 01/08/2024 09:27:38 Neck pain 78217607 M54.2 01/08/24: improvemen t in neck pain [...] emphysema 8743 3001 J43.9 01/08/24: has appt 6/3/24has not been on any inhalers for the past 2 months, was on airduo and spirivaref ill albuterol 10/10/23: started new inhaler, unknown name, has f/u 01/202404/05/23:sa rbuy Anthony on 02/27/23: c/w airduo, gave samples [...] yrrefer to pulmf/u in 1 mo Hyperlipidemia 15019113 E78.5 refill Depression screening 171 014709 Z13.31 PHQ 0 Chronic at rial fibrillation 773095460 I48.20 01/08/24: HR irregularl y irregular, chronic 10/10/23: saw Dr. Carlson 08/2023, EF 40%, stopped losartanne ed consult note 04/05/23:sa ruby Carlson on 02/22/23: afib- asymptomat ic, on ASA 325, [id number] 0, f/u in 6 mo, discussed results [...] and chronic A fibdue for f/u cardio [id number] Petey melgar MD [facility] [address] [place] [address] 03/03/2024 12:20:31 03/03/2024 12:43:41 Adult health examination 191372063 Z00.00 routine labs [id number] Cyrus Lucas MD [facility] [address] [place] [address] 10/06/2024 09:19:56 10/06/2024 10:00:17 Pulmonary emphysema 93715820 J43.9 10/06/24: pt is not on air [...] in 1 mo Chronic at rial fibrillation 630158762 I48.20 10/06/24: OV with Dr. Carlson 09/02/24- discussed echo results, do not see results in consult notec/w metoprolol 50 and ASA 325 01/08/24: HR irregularl y irregular, chronic 10/10/23: saw Dr. Carlson 08/2023, EF 40%, stopped losartanne ed consult note 04/05/23:sa w Dr. Carlson on 02/22/23: afib- asymptomat ic, on ASA 325, [id number] 0, f/u in 6 mo, discussed results [...] fibdue for f/u cardio Retention of urine 01925 4002 R33.9 10/06/24 increase flomax to 0.8 mg 12/28/22:im provement with flomaxdrib chelsie has decreased 12/13/22:x1 yrfeels like he has to go and dribbles, occurs a couple times/week trial flomaxf/u in 2 wks Dysuria 60743505 R30.0 10/06/24: intermitte nt, before and during urination x3 mono hematurian o h/o kidney stonesurin e dip showed moderate leuks and moderate non-hemoly zed bloodsent for UA, did not provide enough urine, will come back to leave urine sample for culture Depression screening 171 810312 Z13.31 PHQ 0 Strain of thoracic region 29244735 S29.019A twisted the wrong way on his stairs yesterday and pulled muscle on the right side of his backrec'd heating, light stretching pt has tizanidine script [id number] Cyrus Lucas MD [facility] [address] [place] [address] 10/08/2024 12:55:58 10/08/2024 13:06:40 Health Concerns Section Related Observation LastModified by Organization Detai ls LastModified Time None Recorded Concern Status LastModified by Organization Details LastModified Time None Recorded Advance Directives Directive N: Payers Encounter Date Sequence Insurance Name Policy Number Policy Hankins Covered Member ID Hankins Member ID Guarantor Name 11/14/2023 1 [place] Stanislav O Cho [id number] Stanislav Amish Cho 11/14/2023 1 [facility] [id number] Stanislav O Cho [id number] Stanislav Amish Cho 01/08/2024 1 [place] Stanislav O Cho [id number] Stanislav Amish Cho 01/08/2024 1 [facility] [id number] Stanislav O Cho [id number] Stanislav Amish Cho 03/03/2024 1 [place] Stanislav O Cho [id number] Stanislav Amish Cho 03/03/2024 1 [facility] [id number] Stanislav O Cho [id number] Stanislav Amish Cho 10/06/2024 1 [facility] (MEDICARE REPLACEMENT/ ADVANTAGE - HMO) [id number] Stanislav Cho [id number] Stanislav Amish Cho 10/08/2024 1 [employer] [facility] (MEDICARE REPLACEMENT/ ADVANTAGE - HMO) [id number] Stanislav Cho [id number] Stanislav Amish Cho Notes Date Note Type Note Provider [...] in 2013. STELLA CABRERA Attn: Accounting,[address] [facility], [place], [address], [facility] 11/17/2023 13:19:40 01/08/2024 text/html Pt presents for f/u. Reports that his neck pain has improved with physical therapy and has his final evaluation tomorrow. States that his R shoulder has been bothering me more with exercises from PT. Declines referral or work-up for R shoulder pain. STELLA CABRERA Attn: Accounting[address] [facility], [place], [address], [facility] 01/08/2024 13:16:36 10/06/2024 text/html Pt presents for 6 mo f/u. C/o intermittent burning sensation before and during urination x3 months. C/o urinary retention and sometimes only urinates 1-2 ounces. He has been compliant with flomax. Admits to drinking tea all day and wakes up 5-6x per night to urinate. Denies hematuria. STELLA CABRERA Attn: Accounting,[address] [facility], [place], [address], [facility] 10/06/2024 14:11:45
--- OUTSIDE RECORDS SUMMARY | 2024-12-17 01:19 | XMS_ITS | Clinical Summary ---
Author Organization [facility] Address [address] [place] [address] Care Team Providers Care Washing And Screening Plant Supervisor Name Role Phone Raya Lozoya Primary Care Provider Allergies No known active allergies Medications alendronate [...] 90 mcg/actuation inhalerIndicati ons:ILD (interstitial lung disease) ([facility]),Chronic obstructive pulmonary disease, unspecified COPD type ([facility]) Inhale 2 puffs every 6 (six) hours [...] - 11/05/2024 11:59 PM CDT Hospital Encounter [facility] [address] [place] [address] Cigarette nicotine dependence without complication Discharge Disposition: Discharge to home or self care 11/05/2024 1:10 PM CDT - 11/05/2024 11:59 PM CDT Hospital Encounter [facility] Respiratory [address] [place] [address] ILD (interstitial lung disease) (HCC); Chronic obstructive pulmonary disease, unspecified COPD type (HCC) Discharge Disposition: Discharge to home or self care from Last 3 Months Surgical History Surgery Date Site/Laterality Comments ARM SURGERY 08/12/2013 - 08/11/2014 Right Shoulder, arm, and forearm SKIN CANCER EXCISION 03/12/2021 - 04/11/2021 Removed from jaw Medical History Medical History Date Comments Skin cancer 2020 A-fib (HCC) 1981 Ringing in ear Arthritis Emphysema of lung (HCC) Osteoarthritis Osteoporosis Anemia Family History Medical History Relation Name Comments Skin cancer Brother Arthritis Father Cancer Father Clotting disorder Father Arthritis Mother Cancer Mother Relation Name Status Comments Brother Alive Father Mother Social History Tobacco Use Types Packs/Day Years Used Date Smoking Tobacco: Former Cigarettes 1 50 1 96 - 2017 Smokeless Tobacco: Never Sex and Gender Information Value Date Recorded Sex Assigned at Not on file Legal Sex Male 9:52 AM 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 REPAIRER Gender Identity Not on file Sexual Orientation Not on file Occupation Industry Job Start Date Job End Date disabled Not on file Not on file Not on file Obstetrics History Last Filed Vital Signs Vital Sign Reading Time Taken Comments Blood Pressure 117/66 09/07/2024 1:50 PM FIXTURE FABRICATOR REPAIRER Pulse 54 09/07/2024 1:50 PM FIXTURE FABRICATOR REPAIRER Temperature 36.5 C (97.7 F) 04/04/2016 3:05 PM CDT Respiratory Rate 18 09/07/2024 1:50 PM FIXTURE FABRICATOR REPAIRER Oxygen Saturation 98% 09/07/2024 1:50 PM FIXTURE FABRICATOR REPAIRER Inhaled Oxygen Concentration - - Weight 92.1 kg (203 lb) 09/07/2024 1:50 PM FIXTURE FABRICATOR REPAIRER Height 185.4 cm (6' 1 ) 09/07/2024 1:50 PM FIXTURE FABRICATOR REPAIRER Body Mass Index 26.78 09/07/2024 1:50 PM FIXTURE FABRICATOR REPAIRER Plan of Treatment Health Maintenance Due Date [...] Well Visit 65+ 2022 Covid-19 Vaccine ( season) 2024, 06/14/2021 Influenza Vaccine (Season Ended) [...] signed by Alessio RICHARD T: Report ID: [id number] Reading Location: [id number] Procedure Note Alessio Vernon MD - 11/13/2024 [...] Alessio Vernon M.D. JA T: Report ID: [id number] Reading Location: [place] [address] [place] Stacia Anthony MD IMG CT PROCEDURES Final Resul t * Pulmonary Function Test - (11/05/2024 2:32 PM CDT) FVC POST 4.41 L 11/05/2024 2:23 PM CDT [facility] FEV1 POST 3.16 L 11/05/2024 2:23 PM CDT [facility] [id number] 71.54 % 11/05/2024 2:23 PM CDT [facility] UCB80-32% POST 2.15 L/s 11/05/2024 2:23 PM CDT [facility] PEF POST 9.19 L/s 11/05/2024 2:23 PM CDT [facility] DLCOc SB 13.25 ml/(min*mm Hg) 11/05/2024 2:23 PM CDT [facility] DLCO/VA PRE 2.44 ml/(min*mm Hg*L) 11/05/2024 2:23 PM CDT [facility] VA 5.44 L 11/05/2024 2:23 PM CDT [facility] TLC PRE 6.07 L 11/05/2024 2:23 PM CDT [facility] VC PRE 4.79 L 11/05/2024 2:23 PM CDT [facility] IC PRE 4.01 L 11/05/2024 2:23 PM CDT [facility] FRC PL PRE 2.44 L 11/05/2024 2:23 PM CDT [facility] ERV PRE 1.16 L 11/05/2024 2:23 PM CDT [facility] RV PRE 1.28 L 11/05/2024 2:23 PM CDT [facility] RAW PRE 3.00 cmH2O*s/L 11/05/2024 2:23 PM CDT [facility] VTG 3.89 L 11/05/2024 2:23 PM CDT [facility] FVC PRE 4.41 L 11/05/2024 2:23 PM CDT [facility] FEV1 PRE 3.21 L 11/05/2024 2:23 PM CDT [facility] [id number]-TTM 72.81 % 11/05/2024 2:23 PM CDT [facility] UAU11-91% PRE 2.24 L/s 11/05/2024 2:23 PM CDT [facility] PEF PRE 9.09 L/s 11/05/2024 2:23 PM CDT [facility] Anatomical Region Laterality Modality PFT [...] and carboxyhemoglobin DLCO is 44 % predicted Stacia Anthony MD PFT ORDERABLES Final Result from Last 3 Months Insurance [facility] [place] [address] Care Teams Washing And Screening Plant Supervisor Relationship Specialty Start Date End Date Raya Lozoya PA [address] [place] [address] PCP - General Physician Tube Builder Airplane 01/09/22
--- OUTSIDE RECORDS SUMMARY | 2024-12-17 01:19 | XMS_ITS | Encounter Summary ---
Author Organization [facility] Facility Care Team Providers Care Cuff Turner Machine Operator Name Role Phone Jazmin Abel MD Primary Care Provider [phone] Raya Lozoya Primary Care Provider [phone] Encounter Details Date Type Department Care Team (Latest Contact Info) Description 07/28/2017 Orders Only [facility] CLINCONV ProviderCameron MD [address] [place] [address] Social History Tobacco Use Types Packs/Day Years Used Date Smoking Tobacco: Never Assessed Sex and Gender Information Value Date Recorded Sex Assigned at Not on file Legal Sex Male 9:52 AM EQUITIES TRADER Gender Identity Not on file Sexual Orientation Not on file documented as of this encounter Plan of Treatment Not on file documented as of this encounter Procedures Procedure Name Priority Date/Time Associated Diagnosis Comments CARDIOLOGY REPORT 07/01/2018 12: 00 AM EQUITIES TRADER documented in this encounter Results * CARDIOLOGY REPORT (07/01/2018 12:00 AM EQUITIES TRADER) Anatomical Region Laterality Modality Other Narrative 07/01/2018 12:00 AM EQUITIES TRADER Ordered by an unspecified provider. Historical Provider [facility] Final Result documented in this encounter Visit Diagnoses Not on filedocumented in this encounter Care Teams Cuff Turner Machine Operator Relationship Specialty Start Date End Date Jazmin Abel MD PCP - General Family Medicine 06/12/18 01/08/22 Raya Lozoya PA [address] [place] [address] PCP - General Physician Wagon Drill Operator 01/09/22 documented as of this encounter
--- OUTSIDE RECORDS SUMMARY | 2024-12-17 01:19 | XMS_ITS | Referral Summary ---
Author Organization [facility] Address [address] [place] [address] Care Team Providers Care Matchbook Assembler Name Role Phone Raya Lozoya Primary Care Provider [phone] Encounters Date Type Department Care Team Description 11/05/2024 2:27 PM CDT - 11/05/2024 11:59 PM CDT Hospital Encounter [facility] [address] [place] [address] Cigarette nicotine dependence without complication Discharge Disposition: Discharge to home or self care 11/05/2024 1:10 PM CDT - 11/05/2024 11:59 PM CDT Hospital Encounter [facility] Respiratory [address] [place] [address] ILD (interstitial lung disease) ([facility]); Chronic obstructive pulmonary disease, unspecified COPD type (HCC) Discharge Disposition: Discharge to home or self care from Last 3 Months Allergies No known [...] 90 mcg/actuation inhalerIndicati ons:ILD (interstitial lung disease) ([facility]),Chronic obstructive pulmonary disease, unspecified COPD type ([facility]) Inhale 2 puffs every 6 (six) hours [...] on file Legal Sex Male 9:52 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 Gender Identity Not on file Sexual Orientation Not on file Occupation Industry Job Start Date Job End Date disabled Not on file Not on file Not on file Last Filed Vital Signs Vital Sign Reading Time Taken Comments Blood Pressure 117/66 09/07/2024 1:50 PM SENIOR 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 Pulse 54 09/07/2024 1:50 PM SENIOR 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 Temperature 36.5 C (97.7 F) 04/04/2016 3:05 PM CDT Respiratory Rate 18 09/07/2024 1:50 PM SENIOR 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 Oxygen Saturation 98% 09/07/2024 1:50 PM SENIOR 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 Inhaled Oxygen Concentration - - Weight 92.1 kg (203 lb) 09/07/2024 1:50 PM SENIOR 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 Height 185.4 cm (6' 1 ) 09/07/2024 1:50 PM SENIOR 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 Body Mass Index 26.78 09/07/2024 1:50 PM SENIOR 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 Plan of Treatment Not on file Procedures [...] signed by Alessio RICHARD T: Report ID: [id number] Reading Location: [place] [address] Procedure Note Alessio Vernon MD - 11/13/2024 [...] Alessio Vernon M.D. JA T: Report ID: [id number] Reading Location: [place] [address] Stacia Anthony MD IMG CT PROCEDURES Final Resul t * Pulmonary Function Test - (11/05/2024 2:32 PM CDT) FVC POST 4.41 L 11/05/2024 2:23 PM CDT [facility] FEV1 POST 3.16 L 11/05/2024 2:23 PM CDT [facility] [id number] 71.54 % 11/05/2024 2:23 PM CDT [facility] LVN45-96% POST 2.15 L/s 11/05/2024 2:23 PM CDT [facility] PEF POST 9.19 L/s 11/05/2024 2:23 PM CDT [facility] DLCOc SB 13.25 ml/(min*mm Hg) 11/05/2024 2:23 PM CDT [facility] DLCO/VA PRE 2.44 ml/(min*mm Hg*L) 11/05/2024 2:23 PM CDT [facility] VA 5.44 L 11/05/2024 2:23 PM CDT [facility] TLC PRE 6.07 L 11/05/2024 2:23 PM CDT [facility] VC PRE 4.79 L 11/05/2024 2:23 PM CDT [facility] IC PRE 4.01 L 11/05/2024 2:23 PM CDT [facility] FRC PL PRE 2.44 L 11/05/2024 2:23 PM CDT [facility] ERV PRE 1.16 L 11/05/2024 2:23 PM CDT [facility] RV PRE 1.28 L 11/05/2024 2:23 PM CDT [facility] RAW PRE 3.00 cmH2O*s/L 11/05/2024 2:23 PM CDT [facility] VTG 3.89 L 11/05/2024 2:23 PM T [facility] FVC PRE 4.41 L 11/05/2024 2:23 PM T [facility] FEV1 PRE 3.21 L 11/05/2024 2:23 PM T [facility] [id number] 72.81 % 11/05/2024 2:23 PM T [facility] PQH94-63% PRE 2.24 L/s 11/05/2024 2:23 PM T [facility] PEF PRE 9.09 L/s 11/05/2024 2:23 PM [facility] Anatomical Region Laterality Modality PFT 11/05/2024 1:24 [...] Final Result from Last 3 Months Insurance [facility] MEDICARE ADVANTAGE Care Teams Matchbook Assembler Relationship Specialty Start Date End Date Raya Lozoya PA [address] [place] [address] PCP - General Physician Painter Shipyard 01/09/22
--- NOTE | 2024-12-17 05:54 | WPDHPUPDATE1 ---
History and Physical Update Update Date/Time: 12/17/24 05:54 History and Physical has been reviewed, including an updated exam of the patient. There are NO changes in the patient's condition. Risks, benefits, and alternatives have been discussed and questions answered. Patient agrees to proceed with procedure. Planned procedure: TURBT (maximal debulking of muscle invasive bladder cancer prior to anticipated chemo radiation)
[2024-12-17] MEDS: LACTATED RINGERS 1,000 ML 30 ML IV CONT (15:00)
--- NOTE | 2024-12-17 15:23 | WPDANESEPPF ---
Anes - Initial Pre Proc Eval Procedure: Operation Date: 12/17/24 16:00 Proposed Procedures p Trans Urethral Resection Bladder Tumor with Gemcitabine Instillation - Lon Foster MD s Cystoscopy, Possible Internalization Left Ureteral Stent - Lon Foster MD Date/Time: 12/17/24 15:23 Surgeon: Lon Foster MD Pre Op Diagnosis: Muscle Invasive Blader Ca Patient Data Age: 69 Gender: M Height: 1.85 m Weight: 83.95 kg Allergies Allergy/AdvReac Type Severity Reaction Status Date / Time No Known Allergies Allergy Verified 12/11/24 08:15 Home Medications ?Medication ?Instructions ?Recorded ?Confirmed ?Type ergocalciferol (vitamin D2) 1,250 1,250 mcg PO WEEKLY 02/09/21 12/11/24 History mcg (50,000 unit) capsule fluticasone propionate 50 1 spray intranasal DAILY 02/09/21 12/11/24 History mcg/actuation nasal spray,suspension (Allergy Relief (fluticasone)) nitroglycerin 0.4 mg sublingual 0.4 mg sublingual Q5M PRN Chest 02/09/21 12/11/24 History tablet Pain vitamin B12 0.5 mg-folic acid 1 mg 1 tablet PO DAILY 02/09/21 12/11/24 History tablet aspirin 325 mg tablet,delayed 325 mg PO DAILY 12/20/21 12/11/24 History release atorvastatin 40 mg tablet 40 mg PO DAILY 12/27/21 12/11/24 History tamsulosin 0.4 mg capsule 0.4 mg PO DAILY 02/18/23 12/11/24 History albuterol sulfate 90 mcg/actuation 2 puff inhalation Q6H PRN 12/02/24 12/11/24 History aerosol inhaler shortness of breath or wheezing budesonide-formoterol HFA 160 2 puff inhalation DAILY 12/02/24 12/11/24 History mcg-4.5 mcg/actuation aerosol inhaler (Symbicort) fluticasone propionate 115 2 puff inhalation DAILY 12/02/24 12/11/24 History mcg-salmeterol 21 mcg/actuation HFA inhaler (Advair HFA) diltiazem HCl 120 mg capsule,24 120 mg PO QAM #30 caps 12/07/24 12/11/24 Rx hr,extended release amoxicillin 500 mg-potassium 1 tablet PO Q12H 3 days #6 tabs 12/09/24 12/11/24 Rx clavulanate 125 mg tablet (Augmentin) metoprolol succinate 25 mg 25 mg PO Q12HR 30 days #60 tabs 12/09/24 12/11/24 Rx tablet,extended release 24 hr (Toprol XL) polyethylene glycol 3350 17 gram 17 g PO QAM PRN Constipation 30 12/09/24 12/11/24 Rx oral powder packet (Miralax) days #30 ea sennosides 8.6 mg capsule (senna) 8.6 mg PO DAILY PRN constipation 12/09/24 12/11/24 Rx 30 days #30 caps metoprolol succinate 50 mg 50 mg PO DAILY 12/11/24 12/11/24 History tablet,extended release 24 hr Patient hx anesthesia problems: none Family hx anesthesia problems: none Results Review: All pre-operative results and documents have been reviewed as part of the pre-operative evaluation. [facility] Past Medical History Medical History Emphysema lung Acute arthritis Rheumatoid osteoperiostitis Afib Surgical History Surgical History History of surgery on arm History of shoulder surgery Family History Family History Sibling Heart disease Skin cancer Social History Social History Smoking packs per day: 1 Smoking cigarettes per day: 20.0 Years smoked: 40 Smoking pack-years: 40.00 Smoking status: Former smoker Tobacco type: cigarettes Smoking end date: 08/12/16 Alcohol intake: former Drinks per week: 4 Substance use: current Substance use type: marijuana Other substance usage details: daily use Last use: 11/30/24 Do You Feel Safe in your Home?: Yes Lack of Transportation: No Lack of Food: Never True Current Housing: I Have Housing Concerned About Future Housing: No Difficulty Paying Gas/Electric Bills: No Difficulty Paying for Meds: No Currently Unemployed: No Education: High School Diploma/GED Difficulty w/ Childcare or Family Care: No Living arrangements: alone Spiritual care concerns: No Anes - Eval Final PreProcedure Day of Procedure 12/17/24 15:23 Patient weight: normal Lungs: normal air movement Airway: Mallampati scale class II and special considerations (Edentulous. ) Neurological: alert and oriented Last oral intake: >/= 8 hours ASA classification: III Emergent: no Anesthetic plan: proceed Anesthesia type and monitoring: general LMA and standard monitoring Results Review: All pre-operative results and documents have been reviewed as part of the pre-operative evaluation. Hyperlipidemia, HTN, KELLI sometimes uses CPAP, COPD and cont to smoke. A fib by hx and rate controlled on EKG. Informed Consent: The patient's anesthetic plan and its attendant risks and benefits were discussed with the patient/family/POA. Questions were solicited and answers provided to the satisfaction of the patient/family/POA.
[2024-12-17] MEDS: ceFAZolin 2 GM/D5W 50 ML 2 GM/50 ML BAG IVPB (15:54)
[2024-12-17] MEDS: LIDOCAINE 2% GEL UROJET 10 ML PKG MUCOUS MEM (16:04)
--- NOTE | 2024-12-17 16:38 | W.PM.PROC2 ---
Procedure Note - Detailed Date of Procedure 12/17/24 Pre-op Diagnosis Muscle Invasive Blader Ca Post-op Diagnosis Same Procedure Performed TURBT (large, 5 cm) Surgeon Lon Foster MD Anesthesia General Description of Procedure Patient is brought the operative suite he was prepped draped in routine sterile fashion while in dorsal lithotomy position after the uneventful induction of a general LMA anesthetic. Cystoscopy is undertaken with a 24 F resectoscope. He is noted to have very modest lateral lobe hyperplasia of the prostate without a significant median. He has bilateral double-J ureteral stents appropriately positioned in the bladder. He has extensive sessile, poorly differentiated urothelial carcinoma involving the floor the trigone and extending into the left lateral wall. This is most concentrated at the bladder base/bladder neck. Using a 24 F resectoscope loop I debulked as much of this muscle invasive tumor is I could reach. That there are some minor reachable portions in the anterior in the left anterior lateral bladder wall. The base of the resected site was cauterized with the rollerball. I placed a [address] catheter to continuous irrigation at the termination. Drains Yes Packing No Pathology Yes Complications No immediate complications Condition Stable
--- NOTE | 2024-12-17 17:17 | SUR.PHASEI ---
DR. MONGE AWARE OF LOW BP UPON ARRIVAL TO PACU BP 68/50; ADONIS LEBLANC GAVE 3RD DOSE OF PHENYLEPHRINE. BP ELEVATED WNL ONCE AWAKENED.
[2024-12-17] MEDS: fentaNYL CITRATE INJ (*CRX) 100 MCG/2 ML VIAL 25 MCG IV PUSH (17:54)
[2024-12-17] MEDS: oxyCODONE HCL (*CRX) 5 MG TAB IR PO (18:13)
== END 2024-12-17 18:34 | disposition home or self-care (01) ==
PROVIDERS: PCP Physician Assistant; Visit Provider Urology
PROC: 0TBB8ZZ Excision of Bladder, Via Natural or Artificial Opening Endoscopic (ICD-10-PCS; CPT 52240; principal; 2024-12-17 16:00)
DX: N32.89 Other specified disorders of bladder (principal); C67.2 Malignant neoplasm of lateral wall of bladder; C67.0 Malignant neoplasm of trigone of bladder; N40.0 Benign prostatic hyperplasia without lower urinary tract symptoms; E78.5 Hyperlipidemia, unspecified; I10 Essential (primary) hypertension; G47.33 Obstructive sleep apnea (adult) (pediatric); N17.9 Acute kidney failure, unspecified; N13.30 Unspecified hydronephrosis; J43.9 Emphysema, unspecified; I48.91 Unspecified atrial fibrillation; M19.90 Unspecified osteoarthritis, unspecified site; F12.90 Cannabis use, unspecified, uncomplicated; Z79.82 Long term (current) use of aspirin; Z79.51 Long term (current) use of inhaled steroids; Z99.89 Dependence on other enabling machines and devices; Z98.890 Other specified postprocedural states; Z96.0 Presence of urogenital implants; Z87.891 Personal history of nicotine dependence; Z84.0 Family history of diseases of the skin and subcutaneous tissue; Z82.49 Family history of ischemic heart disease and other diseases of the circulatory system
CPT/HCPCS: 52240; 88307; A9270; C1769; J0690; J2371; J2704; J3010; J7120; J9201

== ENCOUNTER 2024-12-20 09:44 | Emergency (ER) | payer MEDICARE, SELFPAY ==
--- NOTE | ~2024-12-20 | CT_ITS ---
EXAMINATION: CT abdomen pelvis wo con DATE: 12/20/2024 10:25 INDICATION: Abdominal discomfort TECHNIQUE: Computed tomography (CT) of the abdomen and pelvis was performed without intravenous contr ast. The dose-length product was 361.08 mGy-cm. Automated exposure control and iterative reconstructi on technique were employed. COMPARISON: CT dated 12/02/2024 FINDINGS: The liver, spleen, pancreas, adrenal glands are unremarkable. There is mild bilateral perin ephric stranding. There are bilateral internal ureteral stents present with mild hydronephrosis. Ther e is periureteral edema. There is diffuse bladder wall thickening. Enlarged prostate gland. Myers cat heter present. There is eccentric thickening of the bladder wall. Cannot exclude underlying transitio nal cell carcinoma. There are mild unchanged T11 and L2 superior endplate compression fractures, like ly chronic. There is left atrial enlargement. Nonobstructive bowel gas pattern. Mild atherosclerosis of the aorta without aneurysm. No lymphadenopathy. IMPRESSION: 1. Abnormal thickening of the bladder wall which is more prominent eccentrically posteriorly and left lateral margins of the bladder. Cannot exclude transitional cell carcinoma. Recommend correlation wi cystoscopy. 2: Myers catheter present in the bladder lumen. There are bilateral internal ureteral stents present. Mild perinephric and periureteral edema. Reviewed, dictated and finalized at location A. IMPRESSION: 1. Abnormal thickening of the bladder wall which is more prominent eccentricall y posteriorly and left lateral margins of the bladder. Cannot exclude transitio nal cell carcinoma. Recommend correlation with cystoscopy. 2: Myers catheter present in the bladder lumen. There are bilateral internal ur eteral stents present. Mild perinephric and periureteral edema.
--- OUTSIDE RECORDS SUMMARY | 2024-12-20 09:46 | XMS_ITS | Clinical Summary ---
Author Organization [facility] Address [address] [place] [address] Care Team Providers Care Instructional Technology Facilitator Name Role Phone Jazmin Abel MD Primary Care Provider Source Comments [facility],non-owned Affiliates and Associated Physician Practices is amultiple site organization consisting of ambulatory clinics and hospital sitesin [place], [place], [place] and [place]. This disclosure is being madepursuant to the Care Everywhere program and may not contain all information available regarding this patient. 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 Interventions: Insurance MEDICARE MEDICARE [facility] MANAGED MEDICARE ADV SELF PAY NO INSURANCE Member Subscriber Plan / Payer (Ef fective for All Dates) Name:Tammie Walter Member ID:Not on file Relation to Subscriber:Not on file Name:WALTER HENLEY Subscriber ID:Not on file (Home) Address: [address] [facility] [address] [place] [address] Payer ID:Not on file Group ID:Not on file Type:Self Pay Address: [place], [place] MEDICARE Care Teams Instructional Technology Facilitator Relationship Specialty Start Date End Date Jazmin Abel MD [address] [place] [address] PCP - General 05/14/19
--- OUTSIDE RECORDS SUMMARY | 2024-12-20 09:46 | XMS_ITS | Clinical Summary ---
Author Organization [facility] Laila sharma [facility] Address [address] [place] [address] Care Team Providers Care Checker Dump Grounds Name Role Phone Unavailable Primary Care Provider Unavailabl e Social History Tobacco Use Types Packs/Day Years Used Date Smoking Tobacco: Never Assessed Sex and Gender Information Value Date Recorded Sex Assigned at Not on file Legal Sex Male 2:23 PM CDT Gender Identity Not on file Sexual Orientation Not on file Plan of Treatment Upcoming Encounters Date Type Department Care Team (Late st Contact Info) Description 01/01/2025 3:00 PM CDT Office Visit [facility] Oncology and Hematology - [place] [address] [address] Dyllan Friedman MD [address] [facility] [address] [place] [address] Health Maintenance Due Date Last Done Comments DTAP/TDAP/TD VACCINES (1 - Tdap) 1976 COLORECTAL SCREENING 2002 Colorectal Cancer Screening 2002 FIT-DNA Q 3 years 2002 FIT/FOBT Q 1 year 2002 Flex Sig/CT Colonography Q 5 years 2002 PNEUMOCOCCAL VACCINE 50+ YEARS (1 of 1 - PCV) 06/13/20 07 ZOSTER VACCINE (1 of 2) 2007 INFLUENZA VACCINE (#1) 2024 RSV VACCINE (60+ or ) (1 - 1-dose 75+ series) 2032 Insurance [facility] [id number]
--- OUTSIDE RECORDS SUMMARY | 2024-12-20 09:47 | XMS_ITS | Encounter Summary ---
Author Organization [facility] Facility Care Team Providers Care Density Control Puncher Name Role Phone Jazmin Abel MD Primary Care Provider [phone] Raya Lozoya Primary Care Provider [phone] Encounter Details Date Type Department Care Team (Latest Contact Info) Description 04/04/2016 Orders Only [facility] CLINCONV ProviderCameron MD [address] [place] [address] Social History Tobacco Use Types Packs/Day Years Used Date Smoking Tobacco: Never Assessed Sex and Gender Information Value Date Recorded Sex Assigned at Not on file 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
--- OUTSIDE RECORDS SUMMARY | 2024-12-20 09:47 | XMS_ITS | Encounter Summary ---
Author Organization [facility] Facility Care Team Providers Care Counter Molder Name Role Phone Jazmin Abel MD Primary Care Provider [phone] Raya Lozoya Primary Care Provider [phone] Encounter Details Date Type Department Care Team (Latest Contact Info) Description 07/28/2017 Orders Only [facility] CLINCONV ProviderCameron MD [address] [place] [address] Social History Tobacco Use Types Packs/Day Years Used Date Smoking Tobacco: Never Assessed Sex and Gender Information Value Date Recorded Sex Assigned at Not on file Legal Sex Male 9:52 AM PUMPER HEAD Gender Identity Not on file Sexual Orientation Not on file documented as of this encounter Plan of Treatment Not on file documented as of this encounter Procedures Procedure Name Priority Date/Time Associated Diagnosis Comments CARDIOLOGY REPORT 07/01/2018 12: 00 AM PUMPER HEAD documented in this encounter Results * CARDIOLOGY REPORT (07/01/2018 12:00 AM PUMPER HEAD) Anatomical Region Laterality Modality Other Narrative 07/01/2018 12:00 AM PUMPER HEAD Ordered by an unspecified provider. Historical Provider [facility] Final Result documented in this encounter Visit Diagnoses Not on filedocumented in this encounter Care Teams Counter Molder Relationship Specialty Start Date End Date Jazmin Abel MD PCP - General Family Medicine 06/12/18 01/08/22 Raya Lozoya PA [address] [place] [address] PCP - General Physician Patient Accounts Specialist 01/09/22 documented as of this encounter
--- OUTSIDE RECORDS SUMMARY | 2024-12-20 09:47 | XMS_ITS | Referral Summary ---
Author Organization [facility] Address [address] [place] [address] Care Team Providers Care Toe Trimmer Name Role Phone Raya Lozoya Primary Care Provider [phone] Encounters Date Type Department Care Team Description 11/05/2024 2:27 PM CDT - 11/05/2024 11:59 PM CDT Hospital Encounter [facility] [address] [place] [address] Cigarette nicotine dependence without complication Discharge Disposition: Discharge to home or self care 11/05/2024 1:10 PM CDT - 11/05/2024 11:59 PM CDT Hospital Encounter [facility] Respiratory [address] [place] [address] ILD (interstitial lung disease) ([facility]); Chronic obstructive pulmonary disease, unspecified COPD type [...] on file Legal Sex Male 9:52 AM DISTANCE LEARNING TECHNICIAN Gender Identity Not on file Sexual Orientation Not on file Occupation Industry Job Start Date Job End Date disabled Not on file Not on file Not on file Last Filed Vital Signs Vital Sign Reading Time Taken Comments Blood Pressure 117/66 09/07/2024 1:50 PM DISTANCE LEARNING TECHNICIAN Pulse 54 09/07/2024 1:50 PM DISTANCE LEARNING TECHNICIAN Temperature 36.5 C (97.7 F) 04/04/2016 3:05 PM CDT Respiratory Rate 18 09/07/2024 1:50 PM DISTANCE LEARNING TECHNICIAN Oxygen Saturation 98% 09/07/2024 1:50 PM DISTANCE LEARNING TECHNICIAN Inhaled Oxygen Concentration - - Weight 92.1 kg (203 lb) 09/07/2024 1:50 PM DISTANCE LEARNING TECHNICIAN Height 185.4 cm (6' 1 ) 09/07/2024 1:50 PM DISTANCE LEARNING TECHNICIAN Body Mass Index 26.78 09/07/2024 1:50 PM DISTANCE LEARNING TECHNICIAN Plan of Treatment Not on file Procedures [...] signed by Alessio RICHARD T: Report ID: [id number] Reading Location: [place] [address] Procedure Note Alessio Vernon MD - 11/13/2024 [...] Alessio Vernon M.D. JA T: Report ID: [id number] Reading Location: [place] [address] Stacia Anthony MD IMG CT PROCEDURES Final Resul t * Pulmonary Function Test - (11/05/2024 2:32 PM CDT) FVC POST 4.41 L 11/05/2024 2:23 PM CDT [facility] FEV1 POST 3.16 L 11/05/2024 2:23 PM CDT [facility] [id number] 71.54 % 11/05/2024 2:23 PM CDT [facility] IJL50-02% POST 2.15 L/s 11/05/2024 2:23 PM CDT [facility] PEF POST 9.19 L/s 11/05/2024 2:23 PM CDT [facility] DLCOc SB 13.25 ml/(min*mm Hg) 11/05/2024 2:23 PM CDT [facility] DLCO/VA PRE 2.44 ml/(min*mm Hg*L) 11/05/2024 2:23 PM CDT [facility] VA 5.44 L 11/05/2024 2:23 PM CDT [facility] TLC PRE 6.07 L 11/05/2024 2:23 PM CDT [facility] VC PRE 4.79 L 11/05/2024 2:23 PM CDT [facility] IC PRE 4.01 L 11/05/2024 2:23 PM CDT [facility] FRC PL PRE 2.44 L 11/05/2024 2:23 PM CDT [facility] ERV PRE 1.16 L 11/05/2024 2:23 PM CDT [facility] RV PRE 1.28 L 11/05/2024 2:23 PM CDT [facility] RAW PRE 3.00 cmH2O*s/L 11/05/2024 2:23 PM CDT [facility] VTG 3.89 L 11/05/2024 2:23 PM T [facility] FVC PRE 4.41 L 11/05/2024 2:23 PM T [facility] FEV1 PRE 3.21 L 11/05/2024 2:23 PM T [facility] [id number] 72.81 % 11/05/2024 2:23 PM T [facility] OMY06-15% PRE 2.24 L/s 11/05/2024 2:23 PM T [facility] PEF PRE 9.09 L/s 11/05/2024 2:[address] [facility] Anatomical Region Laterality Modality PFT 11/05/2024 [...] Final Result from Last 3 Months Insurance [facility] MEDICARE ADVANTAGE [facility] Address: [address] [address] Care Teams Toe Trimmer Relationship Specialty Start Date End Date Raya Lozoya PA [address] [place] [address] PCP - General Physician Doubling Machine Operator 01/09/22
--- OUTSIDE RECORDS SUMMARY | 2024-12-20 09:47 | XMS_ITS | Clinical Summary ---
Author Organization [facility] Address [address] [place] [address] Care Team Providers Care Sausage Cutter Name Role Phone David Felix MD Unavailable Raya Lozoya PA-C Primary Care Provider [phone] Allergies No known active allergies Medications INCRUSE ELLIPTA 62.5 MCG/INH AEROSOL POWDER, BREATH ACTIVATEDIndica tions:Pulmonary emphysema (CMS/HCC HHS/HCC) INHALE 1 PUFF BY MOUTH ONCE DAILY 30 each 6 09/04/2018 Active albuterol sulfate HFA (VENTOLIN HFA) 108 (90 Base) MCG/ACT inhalerIndicati ons:Pulmonary emphysema ([facility]/HCC HHS/HCC) Inhale 2 puffs into the lungs every 6 (six) hours as needed for Wheezing. 1 Inhaler 12/08/2018 Active aspirin 81 MG tablet Take 1 tablet (81 mg total) by mouth daily. 11/08/2014 Active vitamin D2, ergocalciferol, 21971 UNITS capsule Take 1 capsule (50,000 Units [...] AEROSOL POWDER, BREATH ACTIVATEDIndica tions:Centrilob ular emphysema ([facility]) Inhale 1 puff into the lungs 2 (two) times a day. 1 each 6 07/02/2019 Active Active Problems Problem Noted Date Diagnosed Date Cigarette nicotine dependence in remission 03/30 KELLI (obstructive sleep apnea) 10/25/2017 Pulmonary nodule 10/25/2017 Pulmonary emphysema ([facility]) 10/25/2017 Environmental and seasonal allergies 07/25/2017 Excessive daytime sleepiness 07/25/2017 GERD (gastroesophageal reflux disease) 7 SOB (shortness of breath) on exertion 07/25/2017 Paraseptal emphysema ([facility]) 7 Aortic atherosclerosis 07/19/2017 Precordial pain 07/19/2017 Syncope 07/19/2017 Former smoker 06/21/2017 Centrilobular emphysema ([facility]) 2016 Heart murmur 06/21/2017 Marijuana [...] - 12/10/2024 5:15 PM CDT Hospital Encounter [facility] [place] [address] [place] [address] Tere Ybarra MD Discharge Disposition: Home or Self Care (Routine Discharge) 12/10/2024 11:25 AM CDT - 12/10/2024 11:29 AM CDT Hospital Encounter [facility] [place] [address] Damian Duarte MD Discharge Disposition: Home or Self Care (Routine Discharge) 12/10/2024 Travel 12/09/2024 Orders Only [facility] [place] [address] Damina Duarte MD 12/09/2024 Hospital Orders Only [facility] [place] [address] Damian Duarte MD from Last 3 Months [...] this topic Medical Devices Implanted Type Area Flower Planter Device Identifier Shelf Expiration Date Model / Serial / Lot Ureteral Stent-12/11/19 25 Implanted:Qt y: 1 on 12/10/2024 by Damian Duarte MD Stent Left: Ureter [employer] RUPA 12/09/2026 [id number] / / [id number] Procedures Procedure Name Priority Date/Time Associated Diagnosis [...] remission LIPID PANEL Routine 08/07/2017 9:50 AM ASSEMBLYMAN OR WOMAN Chest pain SOB (shortness of breath) CT CHEST WO CON Routine 07/02/2017 10:10 AM ASSEMBLYMAN OR WOMAN Abnormal chest x-ray HEPATITIS A,B,& C Routine 10/08/2014 12: 10 PM ASSEMBLYMAN OR WOMAN from Last 3 Months or Most Recently [...] the bladder.. 3. Left internal ureteral 6 English 26 cm stent placed in satisfactory position. 4. No immediate procedure complication. Ordered By: TERE YBARRA Interpreted By: Damian Duarte MD, 12/10/2024 3:25 PM Narrative 12/10/2024 3:33 PM CDT [facility] [address] [place], [place] [address] Procedure Nephrostomy tube placement; antegrade nephrostogram; left [...] from the patient, patient's medical power of auto club safety program coordinator. The procedure was discussed including rationale, alternatives, [...] supervision of the interventional radiologist. Total intraprocedure tunf-to-gvgy time with the radiologist including sedation time [...] sheath were removed leaving the outer [address]. A stiff Amplatz wire was placed through the sheath which was removed followed by advancement of a 5 English Yueh, this was advanced over the wire into the bladder without resistance. Dilute contrast was administered confirming bladder axis The stiff Amplatz wire was replaced and the catheter was removed followed by advancement of a 6 English 26 cm ureteral stent [id number]. The distal pigtail was formed in the bladder and the proximal pigtail in the left renal collecting system appropriately. Contrast and saline was administered showing gradual opacification of a slightly distended bladder. Left renal access was terminated, compression applied and a small sterile dressing placed. The patient remained asymptomatic tolerating the procedure well. No immediate procedure complication. Post Acute Care Registered Nurse: Dr. Duarte Estimated blood loss: None Radiation dose Air Kerma: 39.6 mGy; . Procedure Note aDmian Duarte MD - 12/10/2024 [facility] [address] [place], [place] [address] Procedure Nephrostomy tube placement; antegrade nephrostogram; left [...] obtained from thepatient, patient's medical power of auto club safety program coordinator. The procedure was discussedincluding rationale, alternatives, benefits [...] under supervision of theinterventional radiologist. Total intraprocedure itkf-hc-qjvz time with the radiologist includingsedation time was [...] and sheath wereremoved leaving the outer [address]. A stiff Amplatz wirewas placed through the sheath which was removed followed by advancement ofa 5 English Yueh, this was advanced over the wire into the bladder withoutresistance. Dilute contrast was administered confirming bladder axis The stiff Amplatz wire was replaced and the catheter was removed followedby advancement of a 6 English 26 cm ureteral stent [id number]. Thedistal pigtail was formed in the bladder and the proximal pigtail in theleft renal collecting system appropriately. Contrast and saline wasadministered showing gradual opacification of a slightly distendedbladder. Left renal access was terminated, compression applied and a small steriledressing placed. The patient remained asymptomatic tolerating the procedure well. No immediate procedure complication. Post Acute Care Registered Nurse: Dr. Duarte Estimated blood loss: None Radiation dose Air Kerma: 39.6 mGy; . =====IMPRESSION:===== 1. Left percutaneous nephrostomy access site with ultrasound andfluoroscopy guidance. 2. Left antegrade nephrostogram showing hydronephroureter with distal leftureteral obstruction at the bladder.. 3. Left internal ureteral 6 English 26 cm stent placed in satisfactoryposition. 4. No immediate procedure complication. Ordered By: TERE YBARRA Interpreted By: Damian Duarte MD, 12/10/2024 3:25 PM us Tere Ybarra MD INTERVENTIONAL RADIOLOGY [facility] al Result * PLATELET COUNT, AUTO (12/10/2024 1:00 PM CDT) PLT 228 130 - 400 x10'3/uL 12/10/2024 1:32 PM CDT [facility] MPV 11.3 9.3 - 12.2 FL 12/10/2024 1:32 PM CDT [facility] 12/10/2024 1:00 PM CDT us Damian Duarte MD LABORATORY Final Result [facility] [address] [place] [address], [place] [phone] * PTT, PARTIAL THROMBOPLASTIN TIME (12/10/2024 1:00 PM CDT) PTT 30.6 25.1 - 36.5 SEC 12/10/2024 2:05 PM CDT [facility] 12/10/2024 1:00 PM CDT us Damian Duarte MD LABORATORY Final Result Performing Organization Address City/[facility] Co de Phone Number [facility] [address] [place] [address], [place] [phone] * PROTIME/INR, VENOUS (12/10/2024 1:00 PM CDT) PROTIME 12.5 10.2 - 12.9 SEC 12/10/2024 2:05 PM CDT [facility] INR 1.1 12/10/2024 2:05 PM CDT [facility] Comment: Recommended INR Therapeutic Goals: 2.0-3.0 Routine Therapy 2.5-3.5 Mechanical Prosthetic Valves (High Risk) 12/10/2024 1:00 PM CDT us Damian Duarte MD LABORATORY Final Result Performing Organization Address City/[facility] Co de Phone Number [facility] [address] [place] [address], [place] [phone] * CT LUNG SCREENING (12/22/2021 12:26 PM [...] around 12/22/2022). Thank you for choosing the [facility]'s Lung Screening Program. Referred By: RAYA LOZOYA [...] or around12/22/2022). Thank you for choosing the [facility]'s Lung ScreeningProgram. Referred By: RAYA LOZOYA Interpreted By: Monty You MD, 12/28/2021 7:30 PM us Raya Lozoya PA-C CT Final Resu lt * (ABNORMAL) LIPID PANEL (08/07/2017 9:50 AM ASSEMBLYMAN OR WOMAN) CHOLESTEROL 185 <200 MG/DL 08/07/2017 11:00 AM [facility] TRIGLYCERIDES 66 <150 MG/DL 08/07/2017 11:00 AM [facility] HDL 47 >40.0 MG/DL 08/07/2017 11:00 AM [facility] LDL (CALCULATED) 124.8(H) <100 MG/L 08/07/20 11:00 AM [facility] NON HDL CHOLESTEROL 138(H) <130 MG/DL 08/07/2017 11:00 AM [facility] CHOL/HDL RATIO 3.9 0.0 - 4.5 08/07/2017 11:00 AM [facility] VLDL CALCULATION 13 5 - 55 MG/DL 08/07/2017 11:00 AM [facility] LIPID INTERPRETATION 08/07/2017 11:00 AM [facility] Comment: [facility] CONCENSUS REPORT RECOMMENDATIONS: ADULT CHILD LOW RISK: CHOLESTEROL <200 <170 TRIGLYCERIDE <150 --- HDL >=60 --- LDL <100 <110 BORDERLINE: CHOLESTEROL 200-239 170-199 TRIGLYCERIDE 150-199 --- HDL 40-59 --- LDL 100-159 110-129 HIGH RISK: CHOLESTEROL >=240 >=200 TRIGLYCERIDE >=200 --- HDL <40 --- LDL >=160 >=130 08/07/2017 9:50 AM [facility]YMAN OR WOMAN us Mikel Shepard MD LABORATORY Final Result [facility] [address] [place] [address], * CT CHEST WO CON (07/02/2017 10:10 AM ASSEMBLYMAN OR WOMAN) Anatomical Region Laterality Modality Chest Computed Tomogra phy 07/02/2017 10:2 1 AM ASSEMBLYMAN OR WOMAN Impressions 07/02/2017 10:46 AM ASSEMBLYMAN OR WOMAN =====IMPRESSION:===== 1. Nodularity of the pleura particularly [...] of bowel involvement. Narrative 07/02/2017 10:46 AM ASSEMBLYMAN OR WOMAN EXAMINATION: CT Chest without contrast EXAM DATE/TIME: [...] * HEPATITIS A,B,& C (10/08/2014 12:10 PM ASSEMBLYMAN OR WOMAN) HAV IGM NON-REACTI VE NR [facility] TO EPIC CONVERSION HEPATITIS B SURFACE AG NON-REACTI VE NR [facility] TO EPIC CONVERSION HEP B SURFACE AB NON-REACTI VE [facility] TO EPIC CONVERSION HEP B CORE TOTAL AB NON-REACTI VE NR [facility] TO EPIC CONVERSION HEPATITIS C AB NON-REACTI VE NR [facility] TO EPIC CONVERSION Comment: Result Comment: TESTING PERFORMED AT [facility], A MEMBER OF THE [facility]. 10/08/2014 12:1 0 PM ASSEMBLYMAN OR WOMAN 10/08/2014 12:10 PM ASSEMBLYMAN OR WOMAN Narrative [facility] TO EPIC CONVERSION - 10/11/2014 5:34 PM ASSEMBLYMAN OR WOMAN 13Oct2014 7:23AM by Donovan Saba: Mr Cho, [...] Most Recently Relevant to Health Maintenance Insurance [facility] [address] [id number] Care Teams Sausage Cutter Relationship Specialty Start Date End Date Raya Lozoya PAMarileeC [address] [place] [id number] PCP - General PHYSICIAN ERGONOMICS TECHNICIAN 12/10/24 David Felix MD [facility]. [facility] [address] [place], [place] [address] [place] Bar Machine Operator Multiple Spindle INTERVENTIONAL CARDIOLOGY 06/17/19
--- OUTSIDE RECORDS SUMMARY | 2024-12-20 09:47 | XMS_ITS | Encounter Summary ---
Author Organization [facility] Address [address] [place] [address] Care Team Providers Care Director Of Search Engine Marketing Name Role Phone Mikel Shepard MD Unavailable [phone] Jazmin Abel MD Primary Care Provider [phone] David Felix MD Unavailable Raya Lozoya PA-C Primary Care Provider [phone] Encounter Details Date Type Department Care Team (Late st Contact Info) Description 07/19/2017 Abstract [facility] at [address] [address] Mallory Jackson MA Social History [...] on filedocumented in this encounter Care Teams Director Of Search Engine Marketing Relationship Specialty Start Date End Date Jazmin Abel MD [facility] [place] [address] PCP - General FAMILY PRACTICE 03/30/19 12/09/24 Raya Lozoya PAMarileeC [address] [place] [phone] PCP - General PHYSICIAN AIR PURIFIER SERVICER 12/10/24 Mikel Shepard MD [facility] [facility] Acute CARDIOVASCULAR DISEASE 06/18/17 04/01/18 David Felix MD Three [facility]. [facility] [address] [place] [address] [place] [facility] INTERVENTIONAL CARDIOLOGY 06/17/19 documented as of this encounter
--- OUTSIDE RECORDS SUMMARY | 2024-12-20 09:47 | XMS_ITS | Data Portability ---
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 Name Role Phone YEVGENIY LOO Primary Care [...] DO Not Attach Compendium, Do Not Delete/merge, [id number] 10/06/2024 10:45:54 urinalysi s, complete 2024 025 VIJAY [facility], [address], [place], [address], 10/09/2024 08:29:50 CMP, serum or plasma 2023 024 VIJAY [facility], [address], [place], [address], 03/04/2024 08:29:45 TSH + free T4, serum 2023 024 VIJAY [facility], [address], [place], [address], 03/04/2024 08:29:44 HbA1c (hemoglob in A1c), blood 2023 024 [facility], [address], [place], [address], 03/04/2024 08:29:45 lipid panel, serum 2023 024 [facility], [address], [place], [address], 03/04/2024 08:42:52 CBC w/ auto diff 2023 024 [facility], [address], [place], [address], 03/04/2024 08:29:46 lipid panel, serum 2023 024 [facility], [address], [place], [address], 03/04/2024 08:29:44 vitamin D, 25-hydrox y, total, serum 2023 [facility], [address], [place], [address], 03/04/2024 08:29:46 Referral physical therapist referral 2023 024 [facility] (Outpatient [facility] Therapy), [address], [place], [address], 12/09/2023 14:28:21 Procedures None recorded. Surgeries None recorded. Imaging None recorded. Medication Orders fluticaso ne propionat e 115 mcg-salme terol 21 mcg/actua tion HFA inhaler 2024 025 [facility], [address] [facility], [place], [address], 10/06/2024 10:03:14 tamsulosi n 0.4 mg capsule 2024 025 [facility], [address] [place] [address], [address], 10/06/2024 09:51:10 albuterol sulfate HFA 90 mcg/actua tion aerosol inhaler 2023 024 [facility], [address] [place] [address], [address], 01/08/2024 09:22:35 atorvasta tin 40 mg tablet 2023 024 [facility], [address] [place] [address], [address], 03/12/2024 14:19:05 Patient TargetsNo targets recorded. Patient [...] uIU/m L 0.450- 4.500 Not Available [facility] ([facility]) [address] [place], [address], 03/04/2024 08:29:44 03/03/2003/04/2024 TSH+F REE T4 T4,free(dire ct) 1.19 NG/dL 0.82-1 .77 Not Available [facility] ([facility]) [address] [place], [address], 03/04/2024 08:29:44 03/03/20 24 03/04/2024 LIPID PANEL WITH LDL/H DL RATIO cholesterol, total 164 mg/dL 100-19 9 Not Available [facility] ([facility]) [address] [place], [address], 03/04/2024 08:29:44 03/03/20 24 03/04/2024 LIPID PANEL WITH LDL/H DL RATIO triglyceride s 64 mg/dL 0-149 Not Available [facility] ([facility]) [address] [place], [address], 03/04/2024 08:29:44 03/03/20 24 03/04/2024 LIPID PANEL WITH LDL/H DL RATIO HDL cholesterol 38 mg/dL >39 below low normal Not Available [facility] ([facility]) [address] [place], [address], 03/04/2024 08:29:44 03/03/20 24 03/04/2024 LIPID PANEL WITH LDL/H DL RATIO VLDL cholesterol carla 13 mg/dL 5-40 Not Available [facility] ([facility]) [address] [place], [address], 03/04/2024 08:29:44 03/03/2003/04/2024 LIPID PANEL WITH LDL/H DL RATIO LDL chol calc ([facility]) 113 mg/dL 0-99 above high normal Not Available [facility] ([facility]) [address] [place], [address], 03/04/2024 08:29:44 03/03/20 24 03/04/2024 LIPID PANEL WITH LDL/H DL RATIO LDL/HDL ratio 3.0 ratio 0.0-3. 6 LDL/H DL Ratio Men Women 1/2 Avg.R isk 1.0 1.5 Avg.R isk 3.6 3.2 2X Avg.R isk 6.2 5.0 3X Avg.R isk 8.0 6.1 Not Available [facility] ([facility]) [address] [place], [address], 03/04/2024 08:29:44 03/03/20 24 03/04/2024 COMP. METAB OLIC PANEL (14) glucose 91 mg/dL 70-99 Not Available [facility] ([facility]) [address] [place], [address], 03/04/2024 08:29:45 03/03/20 24 03/04/2024 COMP. METAB OLIC PANEL (14) BUN 18 mg/dL 8-27 Not Available [facility] ([facility]) [address] [place], [address], 03/04/2024 08:29:45 03/03/20 24 03/04/2024 COMP. METAB OLIC PANEL (14) creatinine 1.26 mg/dL 0.76-1 .27 Not Available [facility] ([facility]) [address] [facility], [place], [address], 03/04/2024 08:29:45 03/03/20 24 03/04/2024 COMP. METAB OLIC PANEL (14) eGFR 63 mL/mi n/1.7 3 >59 Not Available [facility] ([facility]) [address] [place], [address], 03/04/2024 08:29:45 03/03/20 24 03/04/2024 COMP. METAB OLIC PANEL (14) BUN/creatini ne ratio 14 10-24 Not Available [facility] ([facility]) [address] [place], [address], 03/04/2024 08:29:45 03/03/20 24 03/04/2024 COMP. METAB OLIC PANEL (14) sodium 137 mmol/ L 134-14 4 Not Available [facility] ([facility]) [address] [place], [address], 03/04/2024 08:29:45 03/03/20 24 03/04/2024 COMP. METAB OLIC PANEL (14) potassium 4.6 mmol/ L 3.5-5. 2 Not Available [facility] ([facility]) [address] [place], [address], 03/04/2024 08:29:45 03/03/20 24 03/04/2024 COMP. METAB OLIC PANEL (14) chloride 105 mmol/ L 96-106 Not Available [facility] ([facility]) [address] [place], [address], 03/04/2024 08:29:45 03/03/20 24 03/04/2024 COMP. METAB OLIC PANEL (14) carbon dioxide, total 18 mmol/ L 20-29 below low normal Not Available [facility] ([facility]) [address] [place], [address], 03/04/2024 08:29:45 03/03/20 24 03/04/2024 COMP. METAB OLIC PANEL (14) calcium 8.9 mg/dL 8.6-10 .2 Not Available [facility] ([facility]) [address] [place], [address], 03/04/2024 08:29:45 03/03/20 24 03/04/2024 COMP. METAB OLIC PANEL (14) protein, total 6.8 g/dL 6.0-8. 5 Not Available [facility] ([facility]) [address] [place], [address], 03/04/2024 08:29:45 03/03/20 24 03/04/2024 COMP. METAB OLIC PANEL (14) albumin 3.6 g/dL 3.9-4. 9 below low normal Not Available [facility] ([facility]) [address] [place], [address], 03/04/2024 08:29:45 03/03/20 24 03/04/2024 COMP. METAB OLIC PANEL (14) globulin, total 3.2 g/dL 1.5-4. 5 Not Available [facility] ([facility]) [address] [facility], [place], [address], 03/04/2024 08:29:45 03/03/20 24 03/04/2024 COMP. METAB OLIC PANEL (14) bilirubin, total 0.5 mg/dL 0.0-1. 2 Not Available [facility] ([facility]) [address] [place], [address], 03/04/2024 08:29:45 03/03/20 24 03/04/2024 COMP. METAB OLIC PANEL (14) alkaline phosphatase 105 IU/L 44-121 Not Available [facility] ([facility]) [address] [place], [address], 03/04/2024 08:29:45 03/03/20 24 03/04/2024 COMP. METAB OLIC PANEL (14) AST (SGOT) 16 IU/L 0-40 Not Available [facility] ([facility]) [address] [facility], [place], [address], 03/04/2024 08:29:45 03/03/20 24 03/04/2024 COMP. METAB OLIC PANEL (14) ALT (SGPT) 12 IU/L 0-44 Not Available [facility] ([facility]) [address] [facility], [place], [address], 03/04/2024 08:29:45 03/03/2003/04/2024 HEMOG LOBIN A1C hemoglobin A1C 5.6 % 4.8-5. 6 Predi abete s: 5.7 - 6.4 Diabe lina: >6.4 Glyce lyssa contr ol for adult s with diabe lina: <7.0 Not Available [facility] ([facility]) [address] [place], [address], 03/04/2024 08:29:45 03/03/20 24 03/04/2024 CBC WITH DIFFE RENTI AL/PL ATELE T WBC 7.1 x10e3 /uL 3.4-10 .8 Not Available [facility] ([facility]) [address] [facility], [place], [address], 03/04/2024 08:29:46 03/03/2003/04/2024 CBC WITH DIFFE RENTI AL/PL ATELE T RBC 4.40 x10e6 /uL 4.14-5 .80 Not Available [facility] ([facility]) [address] [facility], [place], [address], 03/04/2024 08:29:46 03/03/2003/04/2024 CBC WITH DIFFE RENTI AL/PL ATELE T hemoglobin 15.2 g/dL 13.0-1 7.7 Not Available [facility] ([facility]) [address] [facility], [place], [address], 03/04/2024 08:29:46 03/03/2003/04/2024 CBC WITH DIFFE RENTI AL/PL ATELE T hematocrit 45.0 % 37.5-5 1.0 Not Available [facility] ([facility]) [address] [place], [address], 03/04/2024 08:29:46 03/03/2003/04/2024 CBC WITH DIFFE RENTI AL/PL ATELE T MCV 102 fL 79-97 above high normal Not Available [facility] ([facility]) [address] [place], [address], 03/04/2024 08:29:46 03/03/2003/04/2024 CBC WITH DIFFE RENTI AL/PL ATELE T MCH 34.5 pg 26.6-3 3.0 above high normal Not Available [facility] ([facility]) [address] [place], [address], 03/04/2024 08:29:46 03/03/20 24 03/04/2024 CBC WITH DIFFE RENTI AL/PL ATELE T MCHC 33.8 g/dL 31.5-3 5.7 Not Available [facility] ([facility]) [address] [facility], [place], [address], 03/04/2024 08:29:46 03/03/20 24 03/04/2024 CBC WITH DIFFE RENTI AL/PL ATELE T RDW 12.2 % 11.6-1 5.4 Not Available [facility] ([facility]) [address] [facility], [place], [address], 03/04/2024 08:29:46 03/03/20 24 03/04/2024 CBC WITH DIFFE RENTI AL/PL ATELE T platelets 193 x10e3 /uL 150-45 0 Not Available [facility] ([facility]) [address] [facility], [place], [address], 03/04/2024 08:29:46 03/03/20 24 03/04/2024 CBC WITH DIFFE RENTI AL/PL ATELE T neutrophils 65 % notest ab. Not Available [facility] ([facility]) [address] [facility], [place], [address], 03/04/2024 08:29:46 03/03/20 24 03/04/2024 CBC WITH DIFFE RENTI AL/PL ATELE T lymphs 21 % notest ab. Not Available [facility] ([facility]) [address] [facility], [place], [address], 03/04/2024 08:29:46 03/03/20 24 03/04/2024 CBC WITH DIFFE RENTI AL/PL ATELE T monocytes 11 % notest ab. Not Available [facility] ([facility]) [address] [place], [address], 03/04/2024 08:29:46 03/03/20 24 03/04/2024 CBC WITH DIFFE RENTI AL/PL ATELE T eos 3 % notest ab. Not Available [facility] ([facility]) [address] [place], [address], 03/04/2024 08:29:46 03/03/20 24 03/04/2024 CBC WITH DIFFE RENTI AL/PL ATELE T basos 0 % notest ab. Not Available [facility] ([facility]) [address] [facility], [place], [address], 03/04/2024 08:29:46 03/03/2003/04/2024 CBC WITH DIFFE RENTI AL/PL ATELE T neutrophils (absolute) 4.5 x10e3 /uL 1.4-7. 0 Not Available [facility] ([facility]) [address] [facility], [place], [address], 03/04/2024 08:29:46 03/03/20 24 03/04/2024 CBC WITH DIFFE RENTI AL/PL ATELE T lymphs (absolute) 1.5 x10e3 /uL 0.7-3. 1 Not Available [facility] ([facility]) [address] [facility], [place], [address], 03/04/2024 08:29:46 03/03/2003/04/2024 CBC WITH DIFFE RENTI AL/PL ATELE T monocytes(ab solute) 0.8 x10e3 /uL 0.1-0. 9 Not Available [facility] ([facility]) [address] [place], [address], 03/04/2024 08:29:46 03/03/20 24 03/04/2024 CBC WITH DIFFE RENTI AL/PL ATELE T eos (absolute) 0.2 x10e3 /uL 0.0-0. 4 Not Available [facility] ([facility]) [address] [place], [address], 03/04/2024 08:29:46 03/03/20 24 03/04/2024 CBC WITH DIFFE RENTI AL/PL ATELE T baso (absolute) 0.0 x10e3 /uL 0.0-0. 2 Not Available [facility] ([facility]) [address] [facility], [place], [address], 03/04/2024 08:29:46 03/03/20 24 03/04/2024 CBC WITH DIFFE RENTI AL/PL ATELE T immature granulocytes 0 % notest ab. Not Available [facility] ([facility]) [address] [facility], [place], [address], 03/04/2024 08:29:46 03/03/20 24 03/04/2024 CBC WITH DIFFE RENTI AL/PL ATELE T immature grans (abs) 0.0 x10e3 /uL 0.0-0. 1 Not Available [facility] ([facility]) [address] [facility], [place], [address], 03/04/2024 08:29:46 03/03/2003/04/2024 VITAM IN D, 25-HY [...] Jess tompkins [place]: The [facility] . 2. Dilshad fountain [place], Luis bauman [place], Verna off-F errar i CASTANEDA, et al. Evalu ation , treat ment, and preve ntion of vitam in D defic iency : an Endoc rine Socie ty clini carla pract ice guide line. JCEM. 2010; 96(7) :1911 -30. Not Available [facility] ([facility]) [address] [facility], [place], [address], 03/04/2024 08:29:46 10/06/1910/09/2024 MICRO SCOPI C EXAMI NATIO N WBC >30 /hpf 0-5 abnormal Not Available [facility] ([facility]) [address] [facility], [place], [address], 10/09/2024 08:29:50 10/06/19 25 10/09/2024 MICRO SCOPI C EXAMI NATIO N RBC None seen /hpf 0-2 Not Available [facility] ([facility]) [address] [facility], [place], [address], 10/09/2024 08:29:50 10/06/1910/09/2024 MICRO SCOPI C EXAMI NATIO N epithelial cells (non renal) 0-10 /hpf 0-10 Not Available [facility] ([facility]) [address] [facility], [place], [address], 10/09/2024 08:29:50 10/06/19 25 10/09/2024 MICRO SCOPI C EXAMI NATIO N casts None seen /lpf nonese en Not Available [facility] ([facility]) [address] [facility], [place], [address], 10/09/2024 08:29:50 10/06/1910/09/2024 MICRO SCOPI C EXAMI NATIO N mucus threads Presen t notest ab. Not Available [facility] ([facility]) [address] [facility], [place], [address], 10/09/2024 08:29:50 10/06/1910/09/2024 MICRO SCOPI C EXAMI NATIO N bacteria Many nonese en/few abnormal Not Available [facility] ([facility]) [address] [place], [address], 10/09/2024 08:29:50 10/06/1906 1010/09/2024 URINA LYSIS , COMPL ETE specific gravity 1.014 1.005- 1.030 Resul ts from sub-o ptima l speci men perfo rmed at [facility]. Not Available [facility] ([facility]) [address] [place], [address], 10/09/2024 08:29:50 10/06/19 25 10/09/2024 URINA LYSIS , COMPL ETE pH 5.5 5.0-7. 5 Not Available [facility] ([facility]) [address] [place], [address], 10/09/2024 08:29:50 10/06/19 25 10/09/2024 URINA LYSIS , COMPL ETE urine-color YELLOW yellow Not Available [facility] ([facility]) [address] [place], [address], 10/09/2024 08:29:50 10/06/19 25 10/09/2024 URINA LYSIS , COMPL ETE appearance CLEAR clear Not Available [facility] ([facility]) [address] [place], [address], 10/09/2024 08:29:50 10/06/19 25 10/09/2024 URINA LYSIS , COMPL ETE WBC esterase 2+ negati ve abnormal Not Available [facility] ([facility]) [address] [place], [address], 10/09/2024 08:29:50 10/06/19 25 10/09/2024 URINA LYSIS , COMPL ETE protein NEGATI VE negati ve/tra ce Not Available [facility] ([facility]) [address] [place], [address], 10/09/2024 08:29:50 10/06/19 25 10/09/2024 URINA LYSIS , COMPL ETE glucose NEGATI VE negati ve Not Available [facility] ([facility]) [address] [place], [address], 10/09/2024 08:29:50 10/06/19 25 10/09/2024 URINA LYSIS , COMPL ETE ketones NEGATI VE negati ve Not Available [facility] ([facility]) [address] [place], [address], 10/09/2024 08:29:50 10/06/19 25 10/09/2024 URINA LYSIS , COMPL ETE occult blood NEGATI VE negati ve Not Available [facility] ([facility]) [address] [facility], [place], [address], 10/09/2024 08:29:50 10/06/19 25 10/09/2024 URINA LYSIS , COMPL ETE bilirubin NEGATI VE negati ve Not Available [facility] ([facility]) [address] [place], [address], 10/09/2024 08:29:50 10/06/19 25 10/09/2024 URINA LYSIS , COMPL ETE urobilinogen ,semi-qn 0.2 mg/dL 0.2-1. 0 Not Available [facility] ([facility]) [address] [place], [address], 10/09/2024 08:29:50 10/06/19 25 10/09/2024 URINA LYSIS , COMPL ETE nitrite, urine NEGATI VE negati ve Not Available [facility] ([facility]) [address] [place], [address], 10/09/2024 08:29:50 10/06/19 25 10/09/2024 URINA LYSIS , COMPL ETE microscopic examination SEE BELOW: Micro scopi c was indic ated and was perfo rmed. Not Available [facility] ([facility]) [address] [place], [address], 10/09/2024 08:29:50 10/06/19 25 10/11/2024 URINE CULTU RE, ROUTI NE urine culture, routine Final report Not Available [facility] ([facility]) [address] [facility], [place], [address], 10/11/2024 15:08:49 10/06/19 25 10/11/2024 URINE CULTU RE, ROUTI NE result 1 Commen t Mixed uroge nital jose 25,00 0-50, 000 colon y formi ng units per mL Not Available [facility] ([facility]) [address] [facility], [place], [address], 10/11/2024 15:08:49 10/06/1910/06/2024 urina lysis , dipst [...] 10/06/1910/06/2024 urina lysis , dipst ick Specific [place] 1.020 Not Available In-Off ice Order Internal [...] 400 x10'3 /uL 12/10 1:[address] [facility] Not Available Not Available 12/11/2024 10:19:49 12/11/19 25 12/10/2024 Plate lets [#/vo lume] in Blood platelet [entitic mean volume] in blood 11.3 text: 9.3 - 12.2 fL MPV 11.3 9.3 - 12.2 FL 12/10 1:32 PM [facility] Not Available Not Available 12/11/2024 10:19:49 12/11/1912/10/2024 aPTT in Plate let poor plasm a by Coagu latio n assay APTT in platelet poor plasma by coagulation assay 30.6 text: 25.1 - 36.5 sec PTT 30.6 25.1 - 36.5 SEC 12/10 2:05 PM CDT [facility] Not Available Not Available 12/11/2024 10:19:49 12/11/19 25 12/10/2024 Proth rombi n time (PT) prothrombin time (PT) 12.5 text: 10.2 - 12.9 sec PROTI ME 12.5 10.2 - 12.9 SEC 12/10 2:[address] [facility] Not Available Not Available 12/11/2024 10:19:49 12/11/19 25 12/10/2024 Proth rombi n time (PT) INR in platelet poor plasma by coagulation assay 1.1 INR 1.1 12/10 2:05 PM CDT [facility] Not Available Not Available 12/11/2024 10:19:49 11/11/19 24 11/10/2023 CT, brain , w/o contr ast No observ ation record ed. [facility] [address], [place], [address], 11/12/2023 08:32:46 11/14/19 24 11/10/2023 lab* No observ ation record ed. [address] [address], [place], [address], 11/14/2023 16:51:45 11/14/19 24 11/10/2023 lab* No observ ation record ed. [address] [address], [place], [address], 11/14/2023 16:51:37 11/14/19 24 11/10/2023 lab* No observ ation record ed. [address] [address], [place], [address], 11/14/2023 16:51:16 11/15/19 24 11/10/2023 CT, chest , w/o contr ast No observ ation record ed. [address] [address], [place], [address], 11/18/2023 19:03:33 12/04/19 25 12/02/2024 CT, abdom en + pelvi s, w/o contr ast No observ ation record ed. [address] [address], [place], [address], 12/03/2024 10:11:52 12/04/1912/03/2024 XR, urogr am, retro grade No observ ation record ed. [address] [address], [place], [address], 12/04/2024 08:57:18 12/05/19 25 12/03/2024 XR, chest , 2 view No observ ation record ed. [address] [address], [place], [address], 12/04/2024 12:36:09 12/05/19 25 12/04/2024 lab* No observ ation record ed. [email or web address] [address], [place], [address], 12/08/2024 16:24:59 12/08/19 25 12/07/2024 lab* No observ ation record ed. [address], [place], [address], 12/08/2024 16:24:52 12/12/19 25 12/02/2024 trans -thor acic echoc ardio gram (TTE) (PROC ) No observ ation record ed. [facility] Not Available 2024 15:08:48 Result Notes None recorded. Problems Name Problem SNOMED Code Status Onset Date Resolution Date Notes Provider Name and Address Organization Details Recorded Time Pulmonary emphysema 04215596 Active 2021 STELLA CABRERA Attn: Onofre g,[address] [facility], [place], [address], [place] [facility] 3 09:39:54 Chronic atrial fibrillation 733586116 Active 2021 STELLA CABRERA Attn: Accountin g,[address] [facility], [place], [address], [place] [facility] 3 09:39:51 Osteoporosis 14427027 Active 2021 STELLA CABRERA Attn: Accountin g,[address] [facility], [place], [address], [place] [facility] 3 09:39:53 Retention of urine 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 Active 2022 STELLA CABRERA Attn: Accountin g,[address] [facility], [place], [address], [place] [facility] 3 11:26:02 Screening for malignant neoplasm of colon Active 2022 report in chart, due for repeat 2025 STELLA CABRERA Attn: Dodiein g,[address] [facility], [place], [address], [place] [facility] 3 11:02:28 Hyperlipidemi a 16956286 Active 2023 STELLA CABRERA Attn: Onofre singletary,[address] [facility], [place], [address], [facility] 14:16:29 Notes:Some problems listed i n Document: #[id number] could not be added to this patient's chart. Please review this document and add these problems to the patient's chart manually as needed. Problem Notes None recorded. Procedures Surgical History None recorded. Imaging Results Imaging Date Name Status LastModified by Organization Details LastModified Time 11/10/2023 CT, brain, w/o contrast completed [address] [address], [place], [address], 11/12/2023 08:32:46 11/10/2023 lab* completed [address] [address], [place], [address], 11/14/2023 16:51:45 11/10/2023 lab* completed [address] [address], [place], [address], 11/14/2023 16:51:37 11/10/2023 lab* completed [address] [address], [place], [address], 11/14/2023 16:51:16 11/10/2023 CT, chest, w/o contrast completed [address], [address], 11/18/2023 19:03:33 12/02/2024 CT, abdomen + pelvis, w/o contrast completed [address], [address], 12/03/2024 10:11:52 12/03/2024 XR, urogram, retrograde completed [address], [address], 12/04/2024 08:57:18 12/03/2024 XR, chest, 2 view completed [address], [place], [address], 12/04/2024 12:36:09 12/04/2024 lab* completed [address], [place], [address], 12/08/2024 16:24:59 12/07/2024 lab* completed [address], [place], [address], 12/08/2024 16:24:52 12/02/2024 trans-thoracic echocardiogram (TTE) (PROC) [...] Updated DateTime 4 185.42 cm 27.1 kg/m2 93664.8 4 g 97 % 97 % 105 /min 20 /min 110 mm[Hg] 70 mm[Hg] Diane Mcclain MA [facility] 4 15:18:38 Date Recorded Body height Body mass index (BMI) Body weight Oxygen saturation Oxygen saturation in Arterial blood by Pulse oximetry Heart rate Respiratory rate Systolic blood pressure Diastolic blood pressure Provider Name and Address Organization Details Last Updated DateTime 4 185.42 cm 27.1 kg/m2 81911.8 4 g 97 % 97 % 75 /min 18 /min 104 mm[Hg] 68 mm[Hg] Diane Mcclain MA [facility] 4 09:15:27 Date Recorded Body height Body mass index (BMI) Body weight Oxygen saturation Oxygen saturation in Arterial blood by Pulse oximetry Heart rate Respiratory rate Systolic blood pressure Diastolic blood pressure Provider Name and Address Organization Details Last Updated DateTime 5 185.42 cm 26.6 kg/m2 76755.4 7 g 97 % 97 % 68 /min 18 /min 140 mm[Hg] 80 mm[Hg] Diana Gottlieb MA [facility] 5 09:31:59 Date Recorded Systolic blood pressure Diastolic blood pressure Provider Name and Address Organization Details Last Updated DateTime 10/06/2024 110 mm[Hg] 70 mm[Hg] STELLA CABRERA Attn: Accounting,[address], [place], [address], [place] - [facility] 10/06/2024 11:57:36 Social History Question Answer Notes LastModified by Organizat ion Details LastModified Time Tobacco Smoking Status Former Smoker Griselelsi [facility] [place] - [facility] 05/22/2018 10:57:33 Do You Have An [...] Anxious, Or Unable To Sleep At Night)? [id number] Information not available 12/29/2020 Do You Use Any Illicit Or Recreational Drugs? Yes Marijuana Occasionally Information not available 12/29/2020 Do You Use Sunscreen Routinely? Yes [email or web address] Information not available 11/28/2021 Has Tobacco Cessation Counseling Been Provided? Yes [email or web address] Information not available 02/07/2023 On What Date [...] Skin Problems Y Anemia N Heart Attack (NE) N Anxiety Disorder Y Diabetes N Muscle, [...] SNOMED-CT Code Diagnosis ICD10 Code Diagnosis Note [id number] Jazmin Abel MD [facility] [address] [place] [address] 04/22/2018 11:02:50 04/22/2018 13:23:37 Moderate persistent asthma 547544739 J45.40 continue incruse ellipta and ventolin Osteoporosis 14124600 M8 1.0 poor healing after fracture of the right shoulder Pulmonary emphysema 8743 3001 J43.9 Atrial fibrillation 4943 6004 I48.91 had heart cath; no blockage of arteries; get occasional pain and palpitatio ns; takes aspirin. Arthritis 8011193 M19.90 takes baclofen for muscle spasms History of tobacco use 5370363958 103 Z87.891 discussed screening for early lung cancer. Pain of mu ltiple joints 07846551 M25.50 Standard ed adult depression screening tool completed 0560490139 23455 Z13.89 patient has mild depression . Body mass index 25-29 - overweight 702818351 Z68.25 discussed low fat, low carb diet, and encouraged exercise. It should be noted that patient has lost 2 inches of height due to his osteoporos is, so his actual BMI would be in the normal range if he had not had problems with osteoporos is. [id number] Jazmin Abel MD [facility] [address] [place] [address] 05/06/2018 14:40:41 05/06/2018 16:52:20 Atrial fibrillation 72747967 I48.91 had heart cath; no blockage of arteries; get occasional pain and palpitatio ns; takes aspirin. Osteoporosis 98306512 M8 1.0 poor healing after fracture of the right shoulder Active or passive immunization 973289662 Z23 risks and benefits of immunizati ons reviewed. History of disorder of vision 8210113039 14784 Z86.69 may have retinal detachment or ocular migraines. [id number] Jazmin bAel MD [facility] [address] [place] [address] 05/22/2018 10:36:31 05/27/2018 14:48:08 Persistent insomnia 047603217 G47.09 uses CPAP Obstructiv e sleep apnea of adult 4345007605 103 G47.33 has a machine, needs a good nasal mask--I would recommend [facility] nasal mask, extra large due to large nose. [id number] Jazmin Abel MD [facility] [address] [place] [address] 06/24/2018 13:43:02 07/02/2018 16:09:29 Bilateral carpal tunnel syndrome 0333160345 5385090 G56.03 numb and painful along ulnar nerve distributi on; weakness worse with driving. Unsteady when walking 22 741125 R26.89 likely to fall and become injured. Generalize d osteoarthritis 914711442 M15.9 hurts to sit for a prolonged period of time, trouble going up or down stairs, gets back spasms with prolonged standing. Osteoporos is makes more likely to have a fracture if he falls but he is not steady while walking. Presbyopia 22952571 H52. 4 diplopia, trouble like horizontal lines flipping across vision. [id number] Rashad Blanco MD [facility] [address] [place] [address] 07/09/2018 11:05:05 07/11/2018 15:08:29 Chronic blepharitis 82313095 H01.009 Twitching eye 556309975 H55.89 [id number] Jazmin Abel MD [facility] [address] [place] [address] 04/03/2019 11:36:01 04/06/2019 09:49:19 Angina pectoris 890660799 I20.9 Pain in left knee 874094 6351 66945 M25.562 Screening for malignant neoplasm of colon 244814315 Z12.11 Pain of bi lateral hip joints 2212773643 4630408 M25.551 M25.552 Pain of ri ght shoulder joint 2148531097 0414734 M25.511 Standardiz ed adult depression screening tool completed 6968710406 19581 Z13.89 patient has mild depression . Will be monitored. Denies suicidal or homicidal ideation, enjoys being with friends, sleeping and eating normally. [id number] Jazmin Abel MD [facility] [address] [place] [address] 06/11/2019 16:52:08 06/15/2019 10:03:16 Coronary atherosclerosis 352905428 I25.119 intermitte nt chest pain, and calcium deposits in coronary arteries. Patient has prescripti on for NTG. Lumbago with sciatica 20 7307668 M54.40 Depression screening 171 815968 Z13.31 Mild depression ; will monitor and consider adding an SSRI. Chronic ob structive pulmonary disease 64266220 J44.9 Patient uses Incruse ellipta to prevent bronchospa sm, and albuterol inhaler as needed for wheezing. [id number] Jazmin Abel MD [facility] [address] [place] [address] 07/23/2019 15:51:39 07/30/2019 03:47:29 [id number] Jazmin Abel MD [facility] [address] [place] [address] 08/27/2019 13:43:29 09/01/2019 00:09:42 [id number] Jazmin Abel MD [facility] [address] [place] [address] 12/29/2020 10:04:23 12/29/2020 17:00:49 Change in skin lesion 317652644 L98.9 non healing lesion in left side of neck under watson for 2.5 years. Vitamin D deficiency 347 29122 E55.9 Macrocytos is - no anemia 643893244 D75.89 Osteoporosis 33284933 M8 1.0 poor healing after fracture of the right shoulder Angina pectoris 60493913 0 I20.9 Pain in left arm 5864828 00 M79.602 Moderate p ersistent asthma 035786115 J45.40 continue incruse ellipta and ventolin Depression screening 171 455844 Z13.31 mild to minimal depression [id number] Petey melgar MD [facility] [address] [place] [address] 11/28/2021 13:39:49 11/29/2021 10:49:48 Pulmonary emphysema 25243237 J43.[address] scan 2019quit smoking 2019SOB with walking up inclineno SOB at restcontro lled on on ventolin and advairPEx- decreased breath sounds due to emphysemad ue for repeat low dose CT scan Osteoporosis 44226084 M8 1.0 DEXA 2018 showed osteoporos haylee alendronat edue for repeatre-c heck Vit D level Chronic at rial fibrillation 390561997 I48.20 on ASA 81 mglast saw Cardiology 2019, ddx with CAD, cardiomyop athy, and chronic A fibdue for f/u cardio Screening for malignant neoplasm of colon 375116776 Z12.11 has never had colon cancer screenno bowel changes, diarrhea, or constipati onno blood in stoolorder ed cologuard Adult heal th examination 981610516 Z00.00 routine labs Dizziness 589188209 R42 intermitte nt x1 molasts a couple seconds and then goes awayoccurs with position changessit ting to standing, laying flat on bedno concerning sxdiscusse d cardio/hailee ro/orthost atic/BPPVe ncouraged increasing fluid intakef/u if sx do not improve Depression screening 171 371699 Z13.31 PHQ 4 [id number] Petey melgar MD [facility] [address] [place] [address] 12/13/2022 09:29:48 12/13/2022 10:00:15 Chronic atrial fibrillation 632876802 I48.20 12/13/22:unk nown last time he saw cardioPEx- heart rate irregularl y irregulars tates that he has been taking his meds, chart review shows last fill 04/202211/28/21:on ASA 81 mglast saw Cardiology 2019, ddx with CAD, cardiomyop athy, and chronic A fibdue for f/u cardio Screening for malignant neoplasm of colon 463142587 Z12.11 cologuard positiveco lonoscopy 01/2022 showed adenoma, rec'd repeat in 1 yrdue for repeatwill send referral Depression screening 171 441107 Z13.31 PHQ 6 Retention of urine 87389 4002 R33.9 x1 yrfeels like he has to go and dribbles, occurs a couple times/week trial flomaxf/u in 2 wks Fracture o f multiple ribs 2460563 S22.42XA 12/06/22 CTA chest: moderate emphysema, 4 [...] 2 wks Closed fra cture of sternum 99807235 S22.20XA non-displa cedPEx- diffuse ecchymosis to mid chest/ster nal areac/w lidocaine patches and tylenol PRN [id number] Petey melgar MD [facility] [address] [place] [address] 12/28/2022 12:00:47 12/28/2022 12:52:39 Fracture of multiple ribs 1120385 S22.42XA 12/28/22:ta turner OTC pain relief 500 [...] 2 wks Closed fra cture of sternum 45850539 S22.20XA 12/28/22:pa in is improving 12/13/22:non -displaced PEx- diffuse ecchymosis to mid chest/ster nal areac/w lidocaine patches and tylenol PRN Retention of urine 54236 4002 R33.9 12/28/22:im provement with flomaxdrib chelsie has decreased 12/13/22:x1 yrfeels like he has to go and dribbles, occurs a couple times/week trial flomaxf/u in 2 wks Chronic at rial fibrillation 561689253 I48.20 12/28/22:ca rdio note 01/2022 on ASA 325refer back to Dr. Carlson 12/13/22:unk nown last time he saw cardioPEx- heart rate irregularl y irregulars tates that he has been taking his meds, chart review shows last fill 04/202211/28/21:on ASA 83 mglast saw Cardiology 2019, ddx with CAD, cardiomyop athy, and chronic A fibdue for f/u cardio Screening for malignant neoplasm of colon 963352035 Z12.11 12/28/22: Dr Burnham office aware, advised pt to contact office for appt 12/13/22:col oguard positiveco lonoscopy 01/2022 showed adenoma, rec'd repeat in 1 yrdue for repeatwill send referral Pulmonary emphysema 8743 3001 J43.9 on two inhalers, doesn't know which oneper pharmacy, was on ventolin, fluticason e- scripts have not been picked up in over 1 yrrefer to pulmf/u in 1 mo Osteoporosis 63876229 M8 1.0 DEXA 2017 showed osteoporos haylee alendronat edue for repeatre-c heck Vit D levelorder ed DEXAf/u in 1 mo Overweight 622985745 E66 .3 due for routine labs [id number] Petey melgar MD [facility] [address] [place] [address] 02/07/2023 10:44:18 02/07/2023 11:32:00 Fracture of multiple ribs 7683700 S22.42XA 02/07/23:pa in is improving 12/28/22:bernardo tompkins [...] 2 wks Closed fra cture of sternum 46140061 S22.20XA 02/07/23:ab le to take deep breaths w/o painno longer needs lidocaine patches 12/28/22:pa in is improving 12/13/22:non -displaced PEx- diffuse ecchymosis to mid chest/ster nal areac/w lidocaine patches and tylenol PRN Chronic at rial fibrillation 231176798 I48.20 02/07/23:PE x- HR irregularl y irregularp [...] yrrefer to pulmf/u in 1 mo Osteoporosis 73314573 M8 1.0 02/07/23:c/ w Vit Dwill not continue alendronat egave exercises to do at home 11/28/21 DE XA 2017 showed osteoporos haylee alendronat edue for repeatre-c heck Vit D levelorder ed DEXAf/u in 1 mo Screening for malignant neoplasm of colon 206839943 Z12.11 02/07/23: colonoscop y scheduled 12/28/22: Dr Burnham office aware, advised pt to contact office for appt 12/13/22:col oguard positiveco lonoscopy 01/2022 showed adenoma, rec'd repeat in 1 yrdue for repeatwill send referral Hyperlipidemia 16041458 E78.5 refill Depression screening 171 619623 Z13.31 PHQ 3 [id number] Petey melgar MD [facility] [address] [facility] [place] [facility] [place] [address] 04/05/2023 10:39:19 04/08/2023 16:05:09 Chronic atrial fibrillation 293612006 I48.20 04/05/23:sa w Dr. Carlson on 02/22/23: afib- asymptomat ic, on ASA 325, WVVCA2Mkjl 0, f/u in 6 mo, discussed results of stress lexiscan test, told that EF improved from 45% to 50% 02/07/23:PE x- HR irregularl y irregularp t needs to schedule echo before appt with Dr. Carlson on 02/22/23ref illf/u after appt with Dr. Cralson 12/28/22:ca rdio note 01/2022 on ASA 325refer back to Dr. Carlson 12/13/22:unk nown last time he saw cardioPEx- heart rate irregularl y irregulars tates that he has been taking his meds, chart review shows last fill 04/202211/28/21:on ASA 83 mglast saw Cardiology 2019, ddx with CAD, cardiomyop athy, and chronic A fibdue for f/u cardio Osteoporosis 54311443 M8 1.0 04/05/23:DE XA 12/2022: osteopenia L [...] mo Screening for malignant neoplasm of colon 419688418 Z12.11 04/05/23:tu bular adenomas, repeat 202502/07/23: colonoscop y scheduled 12/28/22: Dr Burnham office aware, advised pt to contact office for appt 12/13/22:col oguard positiveco lonoscopy 01/2022 showed adenoma, rec'd repeat in 1 yrdue for repeatwill send referral Depression screening 171 398435 Z13.31 PHQ 0 Closed fra cture of sternum 33792412 S22.20XA 04/05/23:st ill c/o mid sternal painworse [...] nal areac/w lidocaine patches and tylenol PRN [id number] Petey melgar MD [facility] [address] [place] [address] 10/10/2023 09:07:50 10/10/2023 09:47:19 Chronic atrial fibrillation 011470392 I48.20 10/10/23: saw Dr. Carlson 08/2023, EF 40%, stopped losartanne ed consult note 04/05/23:sa w Dr. Carlson on 02/22/23: afib- asymptomat ic, on ASA 325, CTTHH3Tyaz 0, f/u in 6 mo, discussed results [...] 1 mo Dupuytren' s contracture of finger 944045519 M72.0 bilateral pinky fingersa/w intermitte nt numbnessre mark to hand surgery Dizziness 951215710 R42 10/10/23: x3 wksoccurs with position changes [...] sx do not improve Depression screening 171 103612 Z13.31 PHQ 8 [id number] Petey melgar MD [facility] [address] [place] [address] 11/14/2023 15:13:06 11/14/2023 15:48:53 Neck pain 43624157 M54.2 s/p fall 11/10/23wen t to ED, CT brain, CT C spine, CT chest, XR R shoulder normaltaki ng tizanidine with some improvemen tc/o pulling to R side of neck and R shoulderPE x- FROM R shoulder joint and C spinept requesting PT for neck pain, will send referral Dupuytren' s contracture of finger 030709289 M72.0 11/14/23: saw Dr. Hayes 10/31/23- dupuytren' s disease R hand, discussed surgery vs injections 10/10/23:bi lateral pinky fingersa/w intermitte nt numbnessre mark to hand surgery [id number] Petey melgar MD [facility] [address] [place] [address] 01/08/2024 09:11:55 01/08/2024 09:27:38 Neck pain 57710339 M54.2 01/08/24: improvemen t in neck pain [...] new inhaler, unknown name, has f/u 01/202404/05/23:sa ruby Anthony on 02/27/23: c/w airduo, gave samples [...] yrrefer to pulmf/u in 1 mo Hyperlipidemia 50360673 E78.5 refill Depression screening 171 810011 Z13.31 PHQ 0 Chronic at rial fibrillation 934437886 I48.20 01/08/24: HR irregularl y irregular, chronic 10/10/23: saw Dr. Carlson 08/2023, EF 40%, stopped losartanne ed consult note 04/05/23:sa ruby Carlson on 02/22/23: afib- asymptomat ic, on ASA 325, NHVCT1Eior 0, f/u in 6 mo, discussed results [...] and chronic A fibdue for f/u cardio [id number] Petey melgar MD [facility] [address] [place] [address] 03/03/2024 12:20:31 03/03/2024 12:43:41 Adult health examination 540020104 Z00.00 routine labs [id number] Cyrus Lucas MD [facility] [address] [place] [address] 10/06/2024 09:19:56 10/06/2024 10:00:17 Pulmonary emphysema 75578987 J43.9 10/06/24: pt is not on air [...] in 1 mo Chronic at rial fibrillation 239551237 I48.20 10/06/24: OV with Dr. Carlson 09/02/24- discussed echo results, do not see results in consult notec/w metoprolol 50 and ASA 325 01/08/24: HR irregularl y irregular, chronic 10/10/23: saw Dr. Carlson 08/2023, EF 40%, stopped losartanne ed consult note 04/05/23:sa w Dr. Carlson on 02/22/23: afib- asymptomat ic, on ASA 325, JZSZO3Usns 0, f/u in 6 mo, discussed results [...] fibdue for f/u cardio Retention of urine 80844 4002 R33.9 10/06/24 increase flomax to 0.8 mg 12/28/22:im provement with flomaxdrib chelsie has decreased 12/13/22:x1 yrfeels like he has to go and dribbles, occurs a couple times/week trial flomaxf/u in 2 wks Dysuria 20405533 R30.0 10/06/24: intermitte nt, before and during urination x3 mono hematurian o h/o kidney stonesurin e dip showed moderate leuks and moderate non-hemoly zed bloodsent for UA, did not provide enough urine, will come back to leave urine sample for culture Depression screening 171 503359 Z13.31 PHQ 0 Strain of thoracic region 99053493 S29.019A twisted the wrong way on his stairs yesterday and pulled muscle on the right side of his backrec'd heating, light stretching pt has tizanidine script [id number] Cyrus Lucas MD [facility] [address] [place] [address] 10/08/2024 12:55:58 10/08/2024 13:06:40 Health Concerns Section Related Observation LastModified by Organization Detai ls LastModified Time None Recorded Concern Status LastModified by Organization Details LastModified Time None Recorded Advance Directives Directive N: Payers Encounter Date Sequence Insurance Name Policy Number Policy Hankins Covered Member ID Hankins Member ID Guarantor Name 11/14/2023 1 [place] Stanislav O Cho [id number] Stanislav Amish Cho 11/14/2023 1 [facility] [id number] Stanislav O Cho [id number] Stanislav Amish Cho 01/08/2024 1 [place] Stanislav O Cho [id number] Stanislav Amish Cho 01/08/2024 1 [facility] [id number] Stanislav O Cho [id number] Stanislav Amish Cho 03/03/2024 1 [place] Stanislav O Cho [id number] Stanislav Amish Cho 03/03/2024 1 [facility] [id number] Stanislav O Cho [id number] Stanislav Amish Cho 10/06/2024 1 [facility] (MEDICARE REPLACEMENT/ ADVANTAGE - HMO) [id number] Stanislav Cho [id number] Stanislav Amish Cho 10/08/2024 1 [facility] (MEDICARE REPLACEMENT/ ADVANTAGE - HMO) [id number] Stanislav Cho [id number] Stanislav Amish Cho Notes Date Note Type [...] in 2013. STELLA CABRERA Attn: Accounting,[address] [facility], [place], [address], [facility] 11/17/2023 13:19:40 01/08/2024 text/html Pt presents for f/u. Reports that his neck pain has improved with physical therapy and has his final evaluation tomorrow. States that his R shoulder has been bothering me more with exercises from PT. Declines referral or work-up for R shoulder pain. STELLA CABRERA Attn: Accounting,[address] [facility], [place], [address], [facility] 01/08/2024 13:16:36 10/06/2024 text/html Pt presents for 6 mo f/u. C/o intermittent burning sensation before and during urination x3 months. C/o urinary retention and sometimes only urinates 1-2 ounces. He has been compliant with flomax. Admits to drinking tea all day and wakes up 5-6x per night to urinate. Denies hematuria. STELLA CABRERA Attn: Accounting,[address] [facility], [place], [address], [facility] 10/06/2024 14:11:45
--- OUTSIDE RECORDS SUMMARY | 2024-12-20 09:47 | XMS_ITS | Clinical Summary ---
Author Organization [facility] Address [address] [place] [address] Care Team Providers Care Home Appliance Washing Machine Mechanic Name Role Phone Raya Lozoya Primary Care Provider [phone] Allergies No known active allergies Medications alendronate [...] 90 mcg/actuation inhalerIndicati ons:ILD (interstitial lung disease) ([facility]),Chronic obstructive pulmonary disease, unspecified COPD type ([facility]) Inhale 2 puffs every 6 (six) hours [...] - 11/05/2024 11:59 PM CDT Hospital Encounter [facility] [address] [place] [address] Cigarette nicotine dependence without complication Discharge Disposition: Discharge to home or self care 11/05/2024 1:10 PM CDT - 11/05/2024 11:59 PM CDT Hospital Encounter [facility] [address] [place] [address] ILD (interstitial lung disease) (H[facility]); Chronic obstructive [...] on file Legal Sex Male 9:52 AM SUPERVISOR STONE Gender Identity Not on file Sexual Orientation Not on file Occupation Industry Job Start Date Job End Date disabled Not on file Not on file Not on file Obstetrics History Last Filed Vital Signs Vital Sign Reading Time Taken Comments Blood Pressure 117/66 09/07/2024 1:50 PM SUPERVISOR STONE Pulse 54 09/07/2024 1:50 PM SUPERVISOR STONE Temperature 36.5 C (97.7 F) 04/04/2016 3:05 PM CDT Respiratory Rate 18 09/07/2024 1:50 PM SUPERVISOR STONE Oxygen Saturation 98% 09/07/2024 1:50 PM SUPERVISOR STONE Inhaled Oxygen Concentration - - Weight 92.1 kg (203 lb) 09/07/2024 1:50 PM SUPERVISOR STONE Height 185.4 cm (6' 1 ) 09/07/2024 1:50 PM SUPERVISOR STONE Body Mass Index 26.78 09/07/2024 1:50 PM SUPERVISOR STONE Plan of Treatment Health Maintenance Due Date [...] signed by Alessio RICHARD T: Report ID: [id number] Reading Location: [id number] Procedure Note Alessio Vernon MD - 11/13/2024 [...] Alessio Vernon M.D. JA T: Report ID: [id number] Reading Location: [place] [address] [place] Stacia Anthony MD IMG CT PROCEDURES Final Resul t * Pulmonary Function Test - (11/05/2024 2:32 PM CDT) FVC POST 4.41 L 11/05/2024 2:23 PM CDT [facility] FEV1 POST 3.16 L 11/05/2024 2:23 PM CDT [facility] [id number]-VRSE 71.54 % 11/05/2024 2:23 PM CDT [facility] MNX59-07% POST 2.15 L/s 11/05/2024 2:23 PM CDT [facility] PEF POST 9.19 L/s 11/05/2024 2:23 PM CDT [facility] DLCOc SB 13.25 ml/(min*mm Hg) 11/05/2024 2:23 PM CDT [facility] DLCO/VA PRE 2.44 ml/(min*mm Hg*L) 11/05/2024 2:23 PM CDT [facility] VA 5.44 L 11/05/2024 2:23 PM CDT [facility] TLC PRE 6.07 L 11/05/2024 2:23 PM CDT [facility] VC PRE 4.79 L 11/05/2024 2:23 PM CDT [facility] IC PRE 4.01 L 11/05/2024 2:23 PM CDT [facility] FRC PL PRE 2.44 L 11/05/2024 2:23 PM CDT [facility] ERV PRE 1.16 L 11/05/2024 2:23 PM CDT [facility] RV PRE 1.28 L 11/05/2024 2:23 PM CDT [facility] RAW PRE 3.00 cmH2O*s/L 11/05/2024 2:23 PM CDT [facility] VTG 3.89 L 11/05/2024 2:23 PM CDT [facility] FVC PRE 4.41 L 11/05/2024 2:23 PM CDT [facility] FEV1 PRE 3.21 L 11/05/2024 2:23 PM CDT [facility] [id number]-SOQ 72.81 % 11/05/2024 2:23 PM CDT [facility] KOB07-87% PRE 2.24 L/s 11/05/2024 2:23 PM CDT [facility] PEF PRE 9.09 L/s 11/05/2024 2:23 PM CDT [facility] Anatomical Region Laterality Modality PFT 11/05/2024 [...] and carboxyhemoglobin DLCO is 44 % predicted Stcaia Anthony MD PFT ORDERABLES Final Result from Last 3 Months Insurance [facility] MEDICARE ADVANTAGE Care Teams Home Appliance Washing Machine Mechanic Relationship Specialty Start Date End Date Raya Lozoya PA [address] [place] [address] PCP - General Physician Paper Tester 01/09/22
--- OUTSIDE RECORDS SUMMARY | 2024-12-20 09:47 | XMS_ITS | Encounter Summary ---
Author Organization [facility] Facility Care Team Providers Care Interventional Nurse Name Role Phone Jazmin Abel MD Primary Care Provider [phone] Raya Lozoya Primary Care Provider [phone] Encounter Details Date Type Department Care Team (Latest Contact Info) Description 06/26/2018 Orders Only [facility] CLINCONV ProviderCameron MD [address] [place] [address] Social History Tobacco Use Types Packs/Day Years Used Date Smoking Tobacco: Never Assessed Sex and Gender Information Value Date Recorded Sex Assigned at Not on file Legal Sex Male 9:52 AM NANOTECHNOLOGY ENGINEERING TECHNOLOGIST Gender Identity Not on file Sexual Orientation Not on file documented as of this encounter Plan of Treatment Not on file documented as of this encounter Procedures Procedure Name Priority Date/Time Associated Diagnosis Comments CARDIOLOGY REPORT 07/08/2018 12: 00 AM NANOTECHNOLOGY ENGINEERING TECHNOLOGIST documented in this encounter Results * CARDIOLOGY REPORT (07/08/2018 12:00 AM NANOTECHNOLOGY ENGINEERING TECHNOLOGIST) Anatomical Region Laterality Modality Other Narrative 07/08/2018 12:00 AM NANOTECHNOLOGY ENGINEERING TECHNOLOGIST Ordered by an unspecified provider. Historical Provider [facility] PHIL RIZVI Final Result documented in this encounter Visit Diagnoses Not on filedocumented in this encounter Care Teams Interventional Nurse Relationship Specialty Start Date End Date Jazmin Abel MD PCP - General Family Medicine 06/12/18 01/08/22 Raya Lozoya PA [address] [place] [address] PCP - General Physician Electronic Components Assembler 01/09/22 documented as of this encounter
[2024-12-20 09:51] VITALS: BP 111/70; PULSE 89; RESP 20; TEMP 36.4; O2SAT 96
--- NOTE | 2024-12-20 10:33 | ED_ITS ---
HPI - General Adult General Chief complaint: Urogenital-Male Stated complaint: kidney stents 1 week ago, constipation, hematuria Time Seen by Provider: 12/20/24 09:50 History of Present Illness HPI narrative: 69-year-old male presented to the emergency department for evaluation for urinary retention. Patient does have urothelial carcinoma and did just recently have cystoscopy done 12/17. Patient did stay in the hospital until he was able to urinate without issue and patient also had issues with constipation prior to discharge. At time of discharge patient states he did have a small caliber stream was able to urinate. Patient states over the last 24 hours he has had a decrease in his stream caliber worsening constipation. Patient states he did have some blood in his urine as well. Patient is only able to urinate approximately 20 mL at a time. A bedside ultrasound did show approximately 700 mL retained urine postvoid. Related Data Home Medications ?Medication ?Instructions ?Recorded ?Confirmed ?Last Taken ?Type ergocalciferol (vitamin D2) 1,250 1,250 mcg PO WEEKLY 02/09/21 12/11/24 11/28/24 History mcg (50,000 unit) capsule fluticasone propionate 50 1 spray intranasal DAILY 02/09/21 12/11/24 Unknown History mcg/actuation nasal spray,suspension (Allergy Relief (fluticasone)) nitroglycerin 0.4 mg sublingual 0.4 mg sublingual Q5M PRN Chest 02/09/21 12/11/24 Unknown History tablet Pain vitamin B12 0.5 mg-folic acid 1 mg 1 tablet PO DAILY 02/09/21 12/11/24 11/30/24 History tablet aspirin 325 mg tablet,delayed 325 mg PO DAILY 12/20/21 12/17/24 12/03/24 History release atorvastatin 40 mg tablet 40 mg PO DAILY 12/27/21 12/11/24 11/30/24 History tamsulosin 0.4 mg capsule 0.4 mg PO DAILY 02/18/23 12/17/24 12/17/24 History albuterol sulfate 90 mcg/actuation 2 puff inhalation Q6H PRN 12/02/24 12/11/24 Unknown History aerosol inhaler shortness of breath or wheezing budesonide-formoterol HFA 160 2 puff inhalation DAILY 12/02/24 12/11/24 Unknown History mcg-4.5 mcg/actuation aerosol inhaler (Symbicort) fluticasone propionate 115 2 puff inhalation DAILY 12/02/24 12/11/24 Unknown History mcg-salmeterol 21 mcg/actuation HFA inhaler (Advair HFA) metoprolol succinate 50 mg 50 mg PO DAILY 12/11/24 12/17/24 12/17/24 History tablet,extended release 24 hr Allergies Allergy/AdvReac Type Severity Reaction Status Date / Time No Known Allergies Allergy Verified 12/20/24 09:45 Review of Systems 2 Review of Systems: All systems reviewed & are unremarkable except as noted in HPI and below PMFSH Past Medical History Medical History Emphysema lung Acute arthritis Rheumatoid osteoperiostitis Afib Surgical History Surgical History History of surgery on arm History of shoulder surgery Family History Family History Sibling Heart disease Skin cancer Social History Social History Smoking packs per day: 1 Smoking cigarettes per day: 20.0 Years smoked: 40 Smoking pack-years: 40.00 Smoking status: Former smoker Tobacco type: cigarettes Smoking end date: 08/12/16 Alcohol intake: former Drinks per week: 4 Substance use: current Substance use type: marijuana Other substance usage details: daily use Last use: 11/30/24 Do You Feel Safe in your Home?: Yes Lack of Transportation: No Lack of Food: Never True Current Housing: I Have Housing Concerned About Future Housing: No Difficulty Paying Gas/Electric Bills: No Difficulty Paying for Meds: No Currently Unemployed: No Education: High School Diploma/GED Difficulty w/ Childcare or Family Care: No Living arrangements: alone Spiritual care concerns: No Exam 2 Narrative: APPEARANCE: Well appearing, no pain, no distress, well-nourished. HEAD: normocephalic, atraumatic. EYES: PERRLA/EOMI, conjunctivae clear. NOSE: Normal no drainage EARS:TMS clear with good light reflex. THROAT: Pharynx clear, no exudate. NECK: Supple. No adenopathy, no masses. RESPIRATORY: Airway patent, respirations nonlabored. Clear to auscultation bilaterally, no rales, rhonchi, wheezing. CARDIOVASCULAR: Regular rate and rhythm without murmurs rubs or gallops. ABDOMINAL: Soft, nontender, nondistended, normal bowel sounds MUSCULOSKELETAL: Moves all extremities. Strength/ROM intact, No edema, No calf tenderness. NEURO: Alert. Cranial nerves II through XII intact. Good gait. Good coordination SKIN: Warm, dry. Normal Color Course Vital Signs Vital signs: Vital Signs Temperature 97.6 F 12/20/24 09:51 Pulse Rate 89 12/20/24 09:51 Respiratory Rate 20 12/20/24 09:51 Blood Pressure 111/70 12/20/24 09:51 Pulse Oximetry 96 12/20/24 09:51 Oxygen Delivery Room Air 12/20/24 09:51 Temperature 97.6 F 12/20/24 09:51 Pulse Rate 61 12/20/24 11:36 Respiratory Rate 18 12/20/24 11:36 Blood Pressure 118/77 12/20/24 11:36 Pulse Oximetry 98 12/20/24 11:36 Oxygen Delivery Room Air 12/20/24 09:51 Medical Decision Making MDM Narrative Medical decision making narrative: 69-year-old male presents emergency department for evaluation for urinary retention. Patient is currently afebrile with no leukocytosis hemoglobin of 12.0. No significant acute abnormalities on the patient's CMP including a creatinine of 2.4 which is similar to his previous baseline. UA was concerning for infection. Patient was treated with a dose of IV antibiotics and started on Rocephin for home. Patient was provided a Myers catheter due to approximately 670 mL of retained urine. Differential Diagnosis Differential Diagnosis: UTI, urinary retention, acute kidney injury Vital Signs Vital Signs: Vital Signs Temperature 97.6 F 12/20/24 09:51 Pulse Rate 89 12/20/24 09:51 Respiratory Rate 20 12/20/24 09:51 Blood Pressure 111/70 12/20/24 09:51 Pulse Oximetry 96 12/20/24 09:51 Oxygen Delivery Room Air 12/20/24 09:51 Temperature 97.6 F 12/20/24 09:51 Pulse Rate 61 12/20/24 11:36 Respiratory Rate 18 12/20/24 11:36 Blood Pressure 118/77 12/20/24 11:36 Pulse Oximetry 98 12/20/24 11:36 Oxygen Delivery Room Air 12/20/24 09:51 Lab Data Lab results reviewed: Yes I reviewed the patient's lab results. 12/20/24 10:34 12/20/24 10:34 Labs: Lab Results 12/20/24 Range/Units 10:34 WBC 8.7 (4.5-10.0) K/mm3 RBC 3.57 L (4.6-6.20) M/mm3 Hgb 12.0 L (14.0-18.0) g/dL Hct 37.0 L (42.0-52.0) % MCV 103.6 H (80-100) fl MCH 33.6 (26-34) pg MCHC 32.4 (32-36) g/dl RDW 13.9 (11.5-14.5) % Plt Count 182 (150-375) k/mm3 MPV 10.8 H (7.4-10.4) fl Immature Gran % (Auto) 0.5 (0-0.5) % Neut % (Auto) 73.9 H (45.5-73.1) % Lymph % (Auto) 11.0 L (18.3-44.2) % [place] % (Auto) 13.4 H (2.6-8.5) % Eos % (Auto) 0.7 (0-4.4) % Baso % (Auto) 0.5 (0.2-1.2) % Lymph # (Auto) 0.95 (0.9-3.2) K/mm3 [place] # (Auto) 1.2 H (0.1-0.6) K/mm3 Eos # (Auto) 0.1 (0-0.3) K/mm3 Baso # (Auto) 0.0 (0.0-0.1) K/mm3 Abs Immat Gran (auto) 0.04 H (0.00-0.031) K/mm3 Absolute Neuts (auto) 6.4 (1.3-6.7) K/mm3 Absolute Nucleated RBC 0.000 (0.0-0.012) K/mm3 Nucleated RBC % 0.0 (0.0-0.2) % PT 14.8 H (11.1-14.7) Seconds INR 1.1 APTT 29.5 (22.3-36.8) Seconds Sodium 140 (137-145) mmol/L Potassium 4.0 (3.4-5.0) mmol/L Chloride 111 H (98-107) mmol/L Carbon Dioxide 20 L (22-30) mmol/L Anion Gap 9 (4-12) mmol/L BUN 33 H (9-20) mg/dL Creatinine 2.41 H (0.7-1.3) mg/dL Estim Creat Clear Calc 31 ml/min Estimated GFR 27 L (59 - ) Glucose 105 (65-110) mg/dL Calcium 8.7 (8.4-10.2) mg/dL Total Bilirubin 0.9 (0.2-1.3) mg/dL AST 29 (17-59) U/L ALT 21 (6-50) U/L Alkaline Phosphatase 87 (38-126) U/L Total Protein 7.0 (6.3-8.2) g/dL Albumin 3.2 L (3.5-5.1) g/dL Urine Color Brown H (Yellow) Urine Appearance Cloudy H (Clear) Urine pH 5.5 (5.0-9.0) Ur Specific [place] 1.011 (1.001-1.035) Urine Protein 3+ H (Negative) mg/dL Urine Glucose (UA) Negative (Negative) mg/dL Urine Ketones Negative (Negative) mg/dL Ur Blood (Man) 3+ H (Negative) Urine Nitrate Negative (Negative) Urine Bilirubin Negative (Negative) Urine Urobilinogen 0.2 (<2.0) mg/dL Leukocyte Esterase Rfl 2+ H (Negative) MANUEL/UL Urine RBC >100 H (0-2) /hpf Urine WBC >100 H (0-3) /hpf Ur Squamous Epith Cells None seen (Few) /hpf Urine Bacteria None seen /hpf Urine Casts 0-2 Imaging Data Radiologist's impression: Impressions Abdomen/Pelvis CT 12/20/24 10:28 IMPRESSION: 1. Abnormal thickening of the bladder wall which is more prominent eccentrically posteriorly and left lateral margins of the bladder. Cannot exclude transitional cell carcinoma. Recommend correlation with cystoscopy. 2: Myers catheter present in the bladder lumen. There are bilateral internal ureteral stents present. Mild perinephric and periureteral edema. Discharge Plan Discharge Clinical Impression: Acute urinary retention Patient Disposition: Home Condition: Stable Instructions: Antibiotic Form, Urinary Tract Infection in Men (ED), Myers Catheter Placement and Care (ED) Additional Instructions: Antibiotic as directed. Myers catheter care as directed. Have close follow-up with Urology. If you have any worsening symptoms and please call or return to the emergency department. Patient Language: Citizen Of [place] Prescriptions: New cephalexin 500 mg capsule 500 mg PO Q8H 7 Days Qty: 21 0RF No Action nitroglycerin 0.4 mg tablet, sublingual 0.4 mg sublingual Q5M PRN (Reason: Chest Pain) Rx Instructions: do not exceed 3 doses per episode vitamin [id number] acid 0.5-1 mg tablet 1 tablet PO DAILY fluticasone propionate [Allergy Relief (fluticasone)] 50 mcg/actuation spray,suspension 1 spray intranasal DAILY Rx Instructions: administer into each nostril ergocalciferol (vitamin D2) 1,250 mcg (50,000 unit) capsule 1,250 mcg PO WEEKLY Patient Comments: TAKES ON SATURDAYS aspirin 325 mg tablet,delayed release (DR/EC) 325 mg PO DAILY atorvastatin 40 mg tablet 40 mg PO DAILY tamsulosin 0.4 mg capsule 0.4 mg PO DAILY albuterol sulfate 90 mcg/actuation HFA aerosol inhaler 2 puff INHALATION Q6H PRN (Reason: shortness of breath or wheezing) fluticasone propion-salmeterol [Advair HFA] 115-21 mcg/actuation HFA aerosol inhaler 2 puff INHALATION DAILY budesonide-formoterol [Symbicort] 160-4.5 mcg/actuation HFA aerosol inhaler 2 puff INHALATION DAILY diltiazem HCl 120 mg Capsule,Extended Release 24hr 120 mg PO QAM Qty: 30 0RF polyethylene glycol 3350 [Miralax] 17 gram Powder In Packet 17 g PO QAM PRN (Reason: Constipation) 30 Days Qty: 30 1RF metoprolol succinate [Toprol XL] 25 mg Tablet Extended Release 24 Hr 25 mg PO Q12HR 30 Days Qty: 60 1RF senna 8.6 mg capsule 8.6 mg PO DAILY PRN (Reason: constipation) 30 Days Qty: 30 1RF amoxicillin-pot clavulanate [Augmentin] 500-125 mg tablet 1 tablet PO Q12H 3 Days Qty: 6 0RF Patient Comments: STARTING TODAY 12/11/24 metoprolol succinate 50 mg tablet extended release 24 hr 50 mg PO DAILY Follow-up/Referrals: Devora,STELLA Dos Santos [Primary Care Provider] - Lon Foster MD [Physician] -
[2024-12-20 10:40] LABS: Basophils Percent Auto 0.5 % (0.2-1.2); Eosinophils Absolute Auto 0.1 K/mm3 (0-0.3); Eosinophils Percent Auto 0.7 % (0-4.4); Immature Granulocyte Absolute 0.04 K/mm3 (0.00-0.031); Immature Granulocyte Percent A 0.5 % (0-0.5); Lymphocytes Absolute Auto 0.95 K/mm3 (0.9-3.2); Mean Corpuscular HGB Conc 32.4 g/dl (32-36); Mean Corpuscular Hemoglobin 33.6 pg (26-34); Mean Corpuscular Volume 103.6 fl (80-100); Mean Platelet Volume 10.8 fl (7.4-10.4); Monocytes Absolute Auto 1.2 K/mm3 (0.1-0.6); Monocytes Percent Auto 13.4 % (2.6-8.5); Neutrophils Absolute Auto 6.4 K/mm3 (1.3-6.7); Neutrophils Percent Auto 73.9 % (45.5-73.1); Platelet Count Result 182 k/mm3 (150-375); Red Blood Count 3.57 M/mm3 (4.6-6.20); Red Cell Distribution Width 13.9 % (11.5-14.5); White Blood Count 8.7 K/mm3 (4.5-10.0)
[2024-12-20 10:44] LABS: Bacteria Urine None Seen /hpf; Non Pathogenic Casts 0-2; RBC Urine >100 /hpf (0-2); Squamous Epithelial Cell Urine None Seen /hpf (Few); WBC Urine >100 /hpf (0-3)
[2024-12-20 10:48] LABS: Alanine Aminotransferase 21 U/L (6-50); Albumin Level 3.2 g/dL (3.5-5.1); Alkaline Phosphatase 87 U/L (38-126); Anion Gap 9 mmol/L (4-12); Aspartate Amino Transferase 29 U/L (17-59); Bilirubin,Total 0.9 mg/dL (0.2-1.3); Blood Urea Nitrogen 33 mg/dL (9-20); Calcium 8.7 mg/dL (8.4-10.2); Carbon Dioxide 20 mmol/L (22-30); Chloride 111 mmol/L (98-107); Estimated CRCL calculation 31 ml/min; Estimated Glomerular Filt Rate 27; Glucose 105 mg/dL (65-110); Sodium 140 mmol/L (137-145)
[2024-12-20 10:49] LABS: Add Urine Microscopic? YES; Appearance Urine Cloudy (Clear); Bilirubin Urine Negative (Negative); Blood Urine 3+ (Negative); Glucose Urine UA Negative (Negative); Ketones Urine Negative (Negative); Leukocyte Esterase Ur 2+ LEU/UL (Negative); Nitrate Urine Negative (Negative); Protein Urine 3+ mg/dL (Negative); Specific Grav Ur 1.011 (1.001-1.035); Urobilinogen Urine 0.2 mg/dL (<2.0); pH Urine 5.5 (5.0-9.0)
[2024-12-20 10:50] LABS: Color Urine Brown (Yellow)
[2024-12-20 10:57] LABS: INR 1.1; Partial Thromboplastin Time 29.5 Seconds (22.3-36.8); Prothrombin Time 14.8 Seconds (11.1-14.7)
[2024-12-20 11:36] VITALS: BP 118/77; PULSE 61; RESP 18; O2SAT 98
== END 2024-12-20 11:38 | disposition home or self-care (01) ==
PROVIDERS: Emergency Provider Emergency Medicine; PCP Physician Assistant
DX: R33.9 Retention of urine, unspecified (principal); R31.9 Hematuria, unspecified; C67.9 Malignant neoplasm of bladder, unspecified; J43.9 Emphysema, unspecified; M19.90 Unspecified osteoarthritis, unspecified site; Z87.891 Personal history of nicotine dependence
CPT/HCPCS: 36415; 74176; 80053; 81001; 85025; 85610; 85730; 87086; 87181; 96365; 99284; J0696

== ENCOUNTER 2025-01-18 02:24 | Day surgery (SDC) | payer MEDICARE, SELFPAY ==
[2025-01-07 11:27] VITALS: BMI 25.6
--- NOTE | 2025-01-07 11:52 | PC.NURSE ---
Report to the Outpatient Waiting Room, entrance under the green pavilion located off [facility], at time ___1:00PM____ on date ___01/18/25____. Planned Procedure Time: ___3:00PM .? Time changes happen often and if your time is changed the preop area will call you the afternoon before. - You and your visitor will be asked to self-screen and do not enter if you have any COVID symptoms. Please call surgeon if you need to reschedule. - A mask is optional within the hospital at this time. Patients may have clear liquids (water, carbonated beverages, clear teas, apple juice) until 3 hours prior to surgery (12:00PM) with a maximum of 20 ounces. - No food from midnight until time of surgery and no smoking, or chewing tobacco (or any form of nicotine). No chewing gum, candy or mints. Take only the following medications with a SIP of water on the morning of surgery: ___SYMBICORT INHALER, METOPROLOL. MAY USE ALBUTEROL INHALER NEEDED. DO NOT STOP ANY OF YOUR OTHER PRESCRIPTION MEDICATIONS PRIOR TO SURGERY EXCEPT THE FOLLOWING Hold all vitamins and supplements for 3 days per anesthesiologist.-01/14/25 Medications to discontinue per physician __DECREASE ASPIRIN 325MG TO 81MG DAILY 7 DAYS PRE-OP PER DR DO. Date to take last dose_OF ASPIRIN 325MG- 01/10/25. Please no make-up, nail togolese, hairspray, perfume, deodorant, or body powder the day of surgery.? No jewelry (including any body piercings) or valuables the day of surgery, leave them at home.? Please take a shower or bath the night before, or the morning of, surgery with an antibacterial soap.? Wear comfortable, loose fitting clothing.? - Jewelry must be removed prior to entering the operating room.? Rings and piercings that are not removed may be cut off. - The hospital will not accept responsibility for valuables.? - Please leave all valuables, including medications, at home the day of surgery. If you are going home after surgery, a licensed personal driver must drive you home.? - NO public transportation without another adult if you receive anesthesia. - We recommend that an adult stay with you for 24 hours following discharge. - We also recommend that you do not drive, make important decision, drink alcoholic beverages, or take any drugs that were not prescribed by your health care provider for at least 24 hours after your discharge time. Follow any additional instructions given to you from your surgeon. Telephone instructions given to ____PATIENT and asked if any additional questions and then verbalized understanding. Patient advised to call surgeon office or pre surgery nurse liaison [phone] if any additional questions.
--- NOTE | ~2025-01-18 | XR_ITS ---
XR chest port-a-cath/central Ordering provider: Yusef Domingo MD History: 69 years Male with . DAWSON CATH INSERTION . Comparison: December 04, 2024 FINDINGS: MEDIASTINUM: The cardiac silhouette is slightly enlarged. Right Port-A-Cath with the tip overlying th e superior vena cava. LUNGS: No effusions or pneumothorax. Opacification seen in both lung bases and left upper lobe area w ith interstitial thickening which may indicate pneumonia versus pulmonary edema. Underlying fibrotic changes are noted. OTHER: No free air under the diaphragm. Degenerative changes of the spine. IMPRESSION: Bilateral alveolar and interstitial opacification suggestive of pneumonia versus pulmonary Reviewed, dictated and finalized at location A. IMPRESSION: Bilateral alveolar and interstitial opacification suggestive of pneumonia versu s pulmonary
--- NOTE | ~2025-01-18 | XR_ITS ---
EXAMINATION: XR fl guide central line place DATE: 01/18/2025 15:40 CDT INDICATION: DAWSON CATH INSERTION . TECHNIQUE: 6 fluoroscopic images of the chest were obtained during Port-A-Cath insertion, performed b abril Domingo MD. I was not present during the procedure. Fluoroscopy exposure time was 38.3 secon ds. Air Kerma 11.843 mGy. DAP 2.3477 mGym2. COMPARISON: None FINDINGS/IMPRESSION: Fluoroscopic documentation of Port-A-Cath insertion. Please refer to the operative note for complete procedural details . Reviewed, dictated and finalized at location K.
--- OUTSIDE RECORDS SUMMARY | 2025-01-18 02:26 | XMS_ITS | Encounter Summary ---
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
--- OUTSIDE RECORDS SUMMARY | 2025-01-18 02:26 | XMS_ITS | Clinical Summary ---
Author Organization [facility] Laila sharma Jw Address [address] [place] [address] Care Team Providers Care Food Editor Name Role Phone Unavailable Primary Care Provider Unavailabl e Allergies No known active allergies Medications metoprolol succinate (TOPROL XL) 50 mg Extended Release 24 hour tablet Take 50 mg by mouth daily. 4 Active atorvastatin (LIPITOR) 40 mg tablet Take 40 mg by mouth daily. Active dilTIAZem (TIAZAC) 120 mg Extended Release capsule Take 120 mg by mouth daily. 5 Active cyanocobalamin 1,000 mcg Tablet Take 1,000 mcg by mouth daily. Active cholecalcifero l 1,250 mcg (50,000 unit) Capsule 50,000 Units by See Admin Instructions route every 7 days. 4 Active tamsulosin (FLOMAX) 0.4 mg capsule Take 0.4 mg by mouth daily. Active aspirin (LUISA) 325 mg tablet Take 325 mg by mouth daily. 3 Active nitroglycerin (NITROSTAT) 0.4 mg Tablet, Sublingual Place 0.4 mg under tongue every 5 minutes as needed for Chest Pain. Active albuterol sulfate HFA 90 mcg/actuation aerosol inhaler 2 Puffs by See Admin Instructions route see administration instructions. 5 Active budesonide-for moteroL (SYMBICORT) 160-4.5 mcg/actuation HFA Aerosol Inhaler 2 Puffs by See Admin Instructions route see administration instructions. Active Active Problems No known active problems Encounters Date Type Department Care Team Description 01/05/2025 External Device Data [facility] ABSTRACTION Provider, Abstract 01/05/2025 External Device Data [facility] ABSTRACTION Provider, Abstract 01/05/2025 External Device Data [facility] ABSTRACTION Provider, Abstract 01/01/2025 11:00 AM CDT Office Visit [facility] - [place] [address] [place] [address] Dyllan Friedman MD Malignant neoplasm of urinary bladder, unspecified site (CMS/HCC) (Primary Dx) from Last 3 Months Family History Medical History Relation Name Comments Basal cell carcinoma Brother Heart Disease Brother Lymphoma Father Lung Cancer Mother Relation Name Status Comments Brother Alive Father Mother Social History Tobacco Use Types Packs/Day Years Used Date Smoking Tobacco: Never Smokeless Tobacco: Never Tobacco Cessation:Counseling Given: Not Answered Alcohol Use Standard Drinks/Week Comments Never 0 (1 standard drink = 0.6 oz pur e alcohol) Sex and Gender Information Value Date Recorded Sex Assigned at Not on file Legal Sex Male 2:23 PM CDT Gender Identity Not on file Sexual Orientation Not on file Last Filed Vital Signs Vital Sign Reading Time Taken Comments Blood Pressure 105/65 01/01/2025 10:43 AM CDT Pulse 81 01/01/2025 10:43 AM CDT Temperature 36.4 C (97.6 F) 01/01/2025 10:43 AM CDT Respiratory Rate 15 01/01/2025 10:4 3 AM CDT Oxygen Saturation 97% 01/01/2025 10: 43 AM CDT Inhaled Oxygen Concentration - - Weight 86.1 kg (189 lb 12.8 oz) 025 10:43 AM CDT Height 185.4 cm (6' 1) 01/01/2025 10:4 3 AM CDT Body Mass Index 25.04 01/01/2025 10:43 AM CDT Plan of Treatment Health Maintenance Due Date Last Done Comments Pre-Diabetes and Diabetes Screening 1955 DTAP/TDAP/TD VACCINES (1 - Tdap) 1976 PNEUMOCOCCAL VACCINE 50+ YEARS (1 of 2 - PCV) 06/13/19 76 COLORECTAL SCREENING 2002 Colorectal Cancer Screening 2002 FIT-DNA Q 3 years 2002 FIT/FOBT Q 1 year 2002 Flex Sig/CT Colonography Q 5 years 2002 ZOSTER VACCINE (1 of 2) 2007 RSV VACCINE (60+ or ) (1 - Risk 60-74 years 1-dose series) 2017 INFLUENZA VACCINE (#1) 2024 05/07/2018 Insurance [facility] [id number]
--- OUTSIDE RECORDS SUMMARY | 2025-01-18 02:26 | XMS_ITS | Clinical Summary ---
Author Organization [facility] Address [address] [place] [address] Care Team Providers Care Superintendent Pipelines Name Role Phone Jazmin Abel MD Primary Care Provider [phone] Source Comments [facility],non-owned Affiliates and Associated Physician Practices is amultiple site organization consisting of ambulatory clinics and hospital sitesin [place], [place], [place] and [place]. This disclosure is being madepursuant to the Care Everywhere program and may not contain all information available regarding this patient. 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 Interventions: Insurance MEDICARE MEDICARE [facility] MANAGED MEDICARE ADV SELF PAY NO INSURANCE Member Subscriber Plan / Payer (Ef fective for All Dates) Name:Tammie Walter Member ID:Not on file Relation to Subscriber:Not on file Name:WALTER HENLEY Subscriber ID:Not on file (Home) Address: [address] [place] [address] Payer ID:Not on file Group ID:Not on file Type:Self Pay Address: [place], [place] MEDICARE Care Teams Superintendent Pipelines Relationship Specialty Start Date End Date Jazmin Abel MD [address] [place] [address] PCP - General 05/14/19
--- OUTSIDE RECORDS SUMMARY | 2025-01-18 02:26 | XMS_ITS | Referral Summary ---
Author Organization [facility] Address [address] [place] [address] Care Team Providers Care Pododermatologist Name Role Phone Raya Lozoya Primary Care Provider [phone] Encounters Date Type Department Care Team Description 11/05/2024 2:27 PM CDT - 11/05/2024 11:59 PM CDT Hospital Encounter [facility] [address] [place] [address] Cigarette nicotine dependence without complication Discharge Disposition: Discharge to home or self care 11/05/2024 1:10 PM CDT - 11/05/2024 11:59 PM CDT Hospital Encounter [facility] Respiratory [address] [place] [address] ILD (interstitial lung disease) ([facility]); Chronic obstructive pulmonary disease, unspecified COPD type [...] 90 mcg/actuation inhalerIndicati ons:ILD (interstitial lung disease) ([facility]),Chronic obstructive pulmonary disease, unspecified COPD type ([facility]) Inhale 2 puffs every 6 (six) hours [...] on file Legal Sex Male 9:52 AM PROJECT MANAGEMENT CONSULTANT Gender Identity Not on file Sexual Orientation Not on file Occupation Industry Job Start Date Job End Date disabled Not on file Not on file Not on file Last Filed Vital Signs Vital Sign Reading Time Taken Comments Blood Pressure 117/66 09/07/2024 1:50 PM PROJECT MANAGEMENT CONSULTANT Pulse 54 09/07/2024 1:50 PM PROJECT MANAGEMENT CONSULTANT Temperature 36.5 C (97.7 F) 04/04/2016 3:05 PM CDT Respiratory Rate 18 09/07/2024 1:50 PM PROJECT MANAGEMENT CONSULTANT Oxygen Saturation 98% 09/07/2024 1:50 PM PROJECT MANAGEMENT CONSULTANT Inhaled Oxygen Concentration - - Weight 92.1 kg (203 lb) 09/07/2024 1:50 PM PROJECT MANAGEMENT CONSULTANT Height 185.4 cm (6' 1) 09/07/2024 1:50 PM PROJECT MANAGEMENT CONSULTANT Body Mass Index 26.78 09/07/2024 1:50 PM PROJECT MANAGEMENT CONSULTANT Plan of Treatment Not on file [...] signed by Alessio RICHARD T: Report ID: [id number] Reading Location: [place] [address] Procedure Note Alessio Vernon MD - 11/13/2024 [...] Alessio Vernon M.D. JA T: Report ID: [id number] Reading Location: [place] [address] Stacia Anthony MD IMG CT PROCEDURES Final Resul t * Pulmonary Function Test - (11/05/2024 2:32 PM CDT) FVC POST 4.41 L 11/05/2024 2:23 PM CDT [facility] FEV1 POST 3.16 L 11/05/2024 2:23 PM CDT [facility] [id number] 71.54 % 11/05/2024 2:23 PM CDT [facility] JXN80-66% POST 2.15 L/s 11/05/2024 2:23 PM CDT [facility] PEF POST 9.19 L/s 11/05/2024 2:23 PM CDT [facility] DLCOc SB 13.25 ml/(min*mm Hg) 11/05/2024 2:23 PM CDT [facility] DLCO/VA PRE 2.44 ml/(min*mm Hg*L) 11/05/2024 2:23 PM CDT [facility] VA 5.44 L 11/05/2024 2:23 PM CDT [facility] TLC PRE 6.07 L 11/05/2024 2:23 PM CDT [facility] VC PRE 4.79 L 11/05/2024 2:23 PM CDT [facility] IC PRE 4.01 L 11/05/2024 2:23 PM CDT [facility] FRC PL PRE 2.44 L 11/05/2024 2:23 PM CDT [facility] ERV PRE 1.16 L 11/05/2024 2:23 PM CDT [facility] RV PRE 1.28 L 11/05/2024 2:23 PM CDT [facility] RAW PRE 3.00 cmH2O*s/L 11/05/2024 2:23 PM CDT [facility] VTG 3.89 L 11/05/2024 2:23 PM T [facility] FVC PRE 4.41 L 11/05/2024 2:23 PM T [facility] FEV1 PRE 3.21 L 11/05/2024 2:23 PM T [facility] [id number] 72.81 % 11/05/2024 2:23 PM T [facility] JEY94-38% PRE 2.24 L/s 11/05/2024 2:23 PM T [facility] PEF PRE 9.09 L/s 11/05/2024 2:23 PM [facility] Anatomical Region Laterality Modality PFT 11/05/2024 1:24 [...] Final Result from Last 3 Months Insurance [facility] MEDICARE ADVANTAGE Care Teams Pododermatologist Relationship Specialty Start Date End Date Raya Lozoya PA [address] [place] [id number] PCP - General Physician Pulvi Mixer Operator 01/09/22
--- OUTSIDE RECORDS SUMMARY | 2025-01-18 02:26 | XMS_ITS | Encounter Summary ---
Author Organization [facility] Facility Care Team Providers Care Golf Course Mechanic Name Role Phone Jazmin Abel MD Primary Care Provider [phone] Raya Lozoya Primary Care Provider [phone] Encounter Details Date Type Department Care Team (Latest Contact Info) Description 06/26/2018 Orders Only [facility] CLINCONV ProviderCameron MD [address] [place] [id number] Social History Tobacco Use Types Packs/Day Years Used Date Smoking Tobacco: Never Assessed Sex and Gender Information Value Date Recorded Sex Assigned at Not on file Legal Sex Male 9:52 AM R&D LAB TECHNICIAN Gender Identity Not on file Sexual Orientation Not on file documented as of this encounter Plan of Treatment Not on file documented as of this encounter Procedures Procedure Name Priority Date/Time Associated Diagnosis Comments CARDIOLOGY REPORT 07/08/2018 12: 00 AM R&D LAB TECHNICIAN documented in this encounter Results * CARDIOLOGY REPORT (07/08/2018 12:00 AM R&D LAB TECHNICIAN) Anatomical Region Laterality Modality Other Narrative 07/08/2018 12:00 AM R&D LAB TECHNICIAN Ordered by an unspecified provider. Historical Provider [facility] PHIL RIZVI Final Result documented in this encounter Visit Diagnoses Not on filedocumented in this encounter Care Teams Golf Course Mechanic Relationship Specialty Start Date End Date Jazmin Abel MD PCP - General Family Medicine 06/12/18 01/08/22 Raya Lozoya PA [address] [place] [address] PCP - General Physician Special Forces Engineer Sergeant 01/09/22 documented as of this encounter
--- OUTSIDE RECORDS SUMMARY | 2025-01-18 02:26 | XMS_ITS | Clinical Summary ---
Author Organization [facility] Address [address] [place] [address] Care Team Providers Care Nursery Manager Name Role Phone Raya Lozoya Primary Care Provider [phone] Allergies No known active allergies Medications alendronate [...] 90 mcg/actuation inhalerIndicati ons:ILD (interstitial lung disease) ([facility]),Chronic obstructive pulmonary disease, unspecified COPD type ([facility]) Inhale 2 puffs every 6 (six) [...] 11:59 PM CDT Hospital Encounter [facility] [address] [place] [address] Cigarette nicotine dependence without complication Discharge Disposition: Discharge to home or self care 11/05/2024 1:10 PM CDT - 11/05/2024 11:59 PM CDT Hospital Encounter [facility] Respiratory [address] [place] [address] ILD (interstitial lung disease) ([facility]); Chronic obstructive [...] on file Legal Sex Male 9:52 AM SHIP'S ENGINEER Gender Identity Not on file Sexual Orientation Not on file Occupation Industry Job Start Date Job End Date disabled Not on file Not on file Not on file Obstetrics History Last Filed Vital Signs Vital Sign Reading Time Taken Comments Blood Pressure 117/66 09/07/2024 1:50 PM SHIP'S ENGINEER Pulse 54 09/07/2024 1:50 PM SHIP'S ENGINEER Temperature 36.5 C (97.7 F) 04/04/2016 3:05 PM CDT Respiratory Rate 18 09/07/2024 1:50 PM SHIP'S ENGINEER Oxygen Saturation 98% 09/07/2024 1:50 PM SHIP'S ENGINEER Inhaled Oxygen Concentration - - Weight 92.1 kg (203 lb) 09/07/2024 1:50 PM SHIP'S ENGINEER Height 185.4 cm (6' 1) 09/07/2024 1:50 PM SHIP'S ENGINEER Body Mass Index 26.78 09/07/2024 1:50 PM SHIP'S ENGINEER Plan of Treatment Health Maintenance Due Date [...] signed by Alessio RICHARD T: Report ID: [id number] Reading Location: [id number] Procedure Note Alessio Vernon MD - 11/13/2024 [...] Alessio Vernon M.D. JA T: Report ID: [id number] Reading Location: [place] [address] us Stacia Anthony MD IMG CT PROCEDURES Final Resul t * Pulmonary Function Test - (11/05/2024 2:32 PM CDT) FVC POST 4.41 L 11/05/2024 2:23 PM CDT [facility] FEV1 POST 3.16 L 11/05/2024 2:23 PM CDT [facility] [id number] 71.54 % 11/05/2024 2:23 PM CDT [facility] GDP15-52% POST 2.15 L/s 11/05/2024 2:23 PM CDT [facility] PEF POST 9.19 L/s 11/05/2024 2:23 PM CDT [facility] DLCOc SB 13.25 ml/(min*mm Hg) 11/05/2024 2:23 PM CDT [facility] DLCO/VA PRE 2.44 ml/(min*mm Hg*L) 11/05/2024 2:23 PM CDT [facility] VA 5.44 L 11/05/2024 2:23 PM CDT [facility] TLC PRE 6.07 L 11/05/2024 2:23 PM CDT [facility] VC PRE 4.79 L 11/05/2024 2:23 PM CDT [facility] IC PRE 4.01 L 11/05/2024 2:23 PM CDT [facility] FRC PL PRE 2.44 L 11/05/2024 2:23 PM CDT [facility] ERV PRE 1.16 L 11/05/2024 2:23 PM CDT [facility] RV PRE 1.28 L 11/05/2024 2:23 PM CDT [facility] RAW PRE 3.00 cmH2O*s/L 11/05/2024 2:23 PM CDT [facility] VTG 3.89 L 11/05/2024 2:23 PM CDT [facility] FVC PRE 4.41 L 11/05/2024 2:23 PM CDT [facility] FEV1 PRE 3.21 L 11/05/2024 2:23 PM CDT [facility] [id number] 72.81 % 11/05/2024 2:23 PM CDT [facility] VBT39-59% PRE 2.24 L/s 11/05/2024 2:23 PM CDT [facility] PEF PRE 9.09 L/s 11/05/2024 2:23 PM CDT [facility] Anatomical Region Laterality Modality PFT 11/05/2024 1:24 [...] from Last 3 Months Insurance [facility] [place] [address] Care Teams Nursery Manager Relationship Specialty Start Date End Date Raya Lozoya PA [address] [place] [address] PCP - General Physician Supervisor Instrument Repair 01/09/22
--- OUTSIDE RECORDS SUMMARY | 2025-01-18 02:26 | XMS_ITS | Encounter Summary ---
Author Organization [facility] Facility Care Team Providers Care Quality Control Assistant Name Role Phone Jazmin Abel MD Primary Care Provider [phone] Raya Lozoya Primary Care Provider [phone] Encounter Details Date Type Department Care Team (Latest Contact Info) Description 07/28/2017 Orders Only [facility] CLINCONV ProviderCameron MD [address] [place] [id number] Social History Tobacco Use Types Packs/Day Years Used Date Smoking Tobacco: Never Assessed Sex and Gender Information Value Date Recorded Sex Assigned at Not on file Legal Sex Male 9:52 AM PLACER MINER Gender Identity Not on file Sexual Orientation Not on file documented as of this encounter Plan of Treatment Not on file documented as of this encounter Procedures Procedure Name Priority Date/Time Associated Diagnosis Comments CARDIOLOGY REPORT 07/01/2018 12: 00 AM PLACER MINER documented in this encounter Results * CARDIOLOGY REPORT (07/01/2018 12:00 AM PLACER MINER) Anatomical Region Laterality Modality Other Narrative 07/01/2018 12:00 AM PLACER MINER Ordered by an unspecified provider. Historical Provider [facility] PHIL RIZVI Final Result documented in this encounter Visit Diagnoses Not on filedocumented in this encounter Care Teams Quality Control Assistant Relationship Specialty Start Date End Date Jazmin Abel MD PCP - General Family Medicine 06/12/18 01/08/22 Raya Lozoya PA [address] [place] [address] PCP - General Physician Groover And Turner 01/09/22 documented as of this encounter
--- OUTSIDE RECORDS SUMMARY | 2025-01-18 02:27 | XMS_ITS | Data Portability ---
[facility] Organization [facility] Address [address] [facility] [place] [address] Care Team Providers Care Retail Marketing Manager Name Role Phone YEVGENIY LOO Primary Care Provider [phone] Assessment Encounter Date Assessment Date Assessment LastModified by Organization Details LastModified Time 01/08/2024 01/08/2024 Pt will make nurse visit for lab results. [email or web address] Not available 01/08/2024 13:13:21 Plan of Treatment Reminders Order Date Submit Date Provider Last Modified By Organization Details Last Modified Time Details Appointments ANY 15 2024 04:15P STELLA MONROE Not available Not available Not available ANY 15 2024 01:00P STELLA MONROE Not available Not available Not available Lab urinalysi s, dipstick 2024 025 VIJAY In-Office Order, Internal Use Only DO Not Attach Compendium DO Not Attach Compendium, Do Not Delete/merge, [id number] 10/06/2024 10:45:54 urinalysi s, complete 2024 025 VIJAY [facility], [address], [place], [address], 10/09/2024 08:29:50 CMP, serum or plasma 2023 024 VIJAY [facility], [address], [place], [address], 03/04/2024 08:29:45 TSH + free T4, serum 2023 024 VIJAY [facility], [address], [place], [address], 03/04/2024 08:29:44 HbA1c (hemoglob in A1c), blood 2023 024 [facility], [address], [place], [address], 03/04/2024 08:29:45 lipid panel, serum 2023 024 [facility], [address], [place], [address], 03/04/2024 08:42:52 CBC w/ auto diff 2023 024 [facility], [address], [place], [address], 03/04/2024 08:29:46 lipid panel, serum 2023 024 [facility], [address], [place], [address], 03/04/2024 08:29:44 vitamin D, 25-hydrox y, total, serum 2023 [facility], [address], [place], [address], 03/04/2024 08:29:46 Referral physical therapist referral 2023 024 [facility] (Out[facility]), [address], [place], [address], 12/09/2023 14:28:21 Procedures None recorded. Surgeries None recorded. Imaging None recorded. Medication Orders fluticaso ne propionat e 115 mcg-salme terol 21 mcg/actua tion HFA inhaler 2024 025 [facility], [address] [facility] [address], [place], [address], 10/06/2024 10:03:14 tamsulosi n 0.4 mg capsule 2024 025 [facility], [address] [place] [address], [address], 10/06/2024 09:51:10 albuterol sulfate HFA 90 mcg/actua tion aerosol inhaler 2023 024 [facility], [address] [place] [address], [address], 01/08/2024 09:22:35 atorvasta tin 40 mg tablet 2023 024 [facility], [address] [place] [address], [address], 03/12/2024 14:19:05 Patient TargetsNo targets recorded. Patient [...] uIU/m L 0.450- 4.500 Not Available [facility] ([facility]) [address] [place], [address], 03/04/2024 08:29:44 03/03/2003/04/2024 TSH+F REE T4 T4,free(dire ct) 1.19 NG/dL 0.82-1 .77 Not Available [facility] ([facility]) [address] [place], [address], 03/04/2024 08:29:44 03/03/20 24 03/04/2024 LIPID PANEL WITH LDL/H DL RATIO cholesterol, total 164 mg/dL 100-19 9 Not Available [facility] ([facility]) [address] [place], [address], 03/04/2024 08:29:44 03/03/20 24 03/04/2024 LIPID PANEL WITH LDL/H DL RATIO triglyceride s 64 mg/dL 0-149 Not Available [facility] ([facility]) [address] [place], [address], 03/04/2024 08:29:44 03/03/20 24 03/04/2024 LIPID PANEL WITH LDL/H DL RATIO HDL cholesterol 38 mg/dL >39 below low normal Not Available [facility] ([facility]) [address] [place], [address], 03/04/2024 08:29:44 03/03/20 24 03/04/2024 LIPID PANEL WITH LDL/H DL RATIO VLDL cholesterol carla 13 mg/dL 5-40 Not Available [facility] ([facility]) [address] [place], [address], 03/04/2024 08:29:44 03/03/2003/04/2024 LIPID PANEL WITH LDL/H DL RATIO LDL chol calc ([facility]) 113 mg/dL 0-99 above high normal Not Available [facility] ([facility]) [address] [place], [address], 03/04/2024 08:29:44 03/03/20 24 03/04/2024 LIPID PANEL WITH LDL/H DL RATIO LDL/HDL ratio 3.0 ratio 0.0-3. 6 LDL/H DL Ratio Men Women 1/2 Avg.R isk 1.0 1.5 Avg.R isk 3.6 3.2 2X Avg.R isk 6.2 5.0 3X Avg.R isk 8.0 6.1 Not Available [facility] ([facility]) [address] [place], [address], 03/04/2024 08:29:44 03/03/20 24 03/04/2024 COMP. METAB OLIC PANEL (14) glucose 91 mg/dL 70-99 Not Available [facility] ([facility]) [address] [place], [address], 03/04/2024 08:29:45 03/03/20 24 03/04/2024 COMP. METAB OLIC PANEL (14) BUN 18 mg/dL 8-27 Not Available [facility] ([facility]) [address] [place], [address], 03/04/2024 08:29:45 03/03/20 24 03/04/2024 COMP. METAB OLIC PANEL (14) creatinine 1.26 mg/dL 0.76-1 .27 Not Available [facility] ([facility]) [address] [facility], [place], [address], 03/04/2024 08:29:45 03/03/20 24 03/04/2024 COMP. METAB OLIC PANEL (14) eGFR 63 mL/mi n/1.7 3 >59 Not Available [facility] ([facility]) [address] [place], [address], 03/04/2024 08:29:45 03/03/20 24 03/04/2024 COMP. METAB OLIC PANEL (14) BUN/creatini ne ratio 14 10-24 Not Available [facility] ([facility]) [address] [place], [address], 03/04/2024 08:29:45 03/03/20 24 03/04/2024 COMP. METAB OLIC PANEL (14) sodium 137 mmol/ L 134-14 4 Not Available [facility] ([facility]) [address] [place], [address], 03/04/2024 08:29:45 03/03/20 24 03/04/2024 COMP. METAB OLIC PANEL (14) potassium 4.6 mmol/ L 3.5-5. 2 Not Available [facility] ([facility]) [address] [place], [address], 03/04/2024 08:29:45 03/03/20 24 03/04/2024 COMP. METAB OLIC PANEL (14) chloride 105 mmol/ L 96-106 Not Available [facility] ([facility] [address] [facility] [place], [address], 03/04/2024 08:29:45 03/03/20 24 03/04/2024 COMP. METAB OLIC PANEL (14) carbon dioxide, total 18 mmol/ L 20-29 below low normal Not Available [facility] ([facility]) [address] [facility] [place], [address], 03/04/2024 08:29:45 03/03/20 24 03/04/2024 COMP. METAB OLIC PANEL (14) calcium 8.9 mg/dL 8.6-10 .2 Not Available [facility] ([facility]) [address] [facility] [place], [address], 03/04/2024 08:29:45 03/03/20 24 03/04/2024 COMP. METAB OLIC PANEL (14) protein, total 6.8 g/dL 6.0-8. 5 Not Available [facility] ([facility]) [address] [facility] [place], [address], 03/04/2024 08:29:45 03/03/20 24 03/04/2024 COMP. METAB OLIC PANEL (14) albumin 3.6 g/dL 3.9-4. 9 below low normal Not Available [facility] ([facility]) [address] [facility] [place], [address], 03/04/2024 08:29:45 03/03/20 24 03/04/2024 COMP. METAB OLIC PANEL (14) globulin, total 3.2 g/dL 1.5-4. 5 Not Available [facility] ([facility]) [address] [facility], [place], [address], 03/04/2024 08:29:45 03/03/20 24 03/04/2024 COMP. METAB OLIC PANEL (14) bilirubin, total 0.5 mg/dL 0.0-1. 2 Not Available [facility] ([facility]) [address] [place], [address], 03/04/2024 08:29:45 03/03/20 24 03/04/2024 COMP. METAB OLIC PANEL (14) alkaline phosphatase 105 IU/L 44-121 Not Available [facility] ([facility]) [address] [place], [address], 03/04/2024 08:29:45 03/03/20 24 03/04/2024 COMP. METAB OLIC PANEL (14) AST (SGOT) 16 IU/L 0-40 Not Available [facility] ([facility]) [address] [facility], [place], [address], 03/04/2024 08:29:45 03/03/20 24 03/04/2024 COMP. METAB OLIC PANEL (14) ALT (SGPT) 12 IU/L 0-44 Not Available [facility] ([facility]) [address] [facility], [place], [address], 03/04/2024 08:29:45 03/03/2003/04/2024 HEMOG LOBIN A1C hemoglobin A1C 5.6 % 4.8-5. 6 Predi abete s: 5.7 - 6.4 Diabe lina: >6.4 Glyce lyssa contr ol for adult s with diabe lina: <7.0 Not Available [facility] ([facility]) [address] [place], [address], 03/04/2024 08:29:45 03/03/20 24 03/04/2024 CBC WITH DIFFE RENTI AL/PL ATELE T WBC 7.1 x10e3 /uL 3.4-10 .8 Not Available [facility] ([facility]) [address] [facility], [place], [address], 03/04/2024 08:29:46 03/03/2003/04/2024 CBC WITH DIFFE RENTI AL/PL ATELE T RBC 4.40 x10e6 /uL 4.14-5 .80 Not Available [facility] ([facility]) [address] [facility], [place], [address], 03/04/2024 08:29:46 03/03/2003/04/2024 CBC WITH DIFFE RENTI AL/PL ATELE T hemoglobin 15.2 g/dL 13.0-1 7.7 Not Available [facility] ([facility]) [address] [facility], [place], [address], 03/04/2024 08:29:46 03/03/2003/04/2024 CBC WITH DIFFE RENTI AL/PL ATELE T hematocrit 45.0 % 37.5-5 1.0 Not Available [facility] ([facility]) [address] [place], [address], 03/04/2024 08:29:46 03/03/2003/04/2024 CBC WITH DIFFE RENTI AL/PL ATELE T MCV 102 fL 79-97 above high normal Not Available [facility] ([facility]) [address] [place], [address], 03/04/2024 08:29:46 03/03/2003/04/2024 CBC WITH DIFFE RENTI AL/PL ATELE T MCH 34.5 pg 26.6-3 3.0 above high normal Not Available [facility] ([facility]) [address] [place], [address], 03/04/2024 08:29:46 03/03/20 24 03/04/2024 CBC WITH DIFFE RENTI AL/PL ATELE T MCHC 33.8 g/dL 31.5-3 5.7 Not Available [facility] ([facility]) [address] [facility], [place], [address], 03/04/2024 08:29:46 03/03/20 24 03/04/2024 CBC WITH DIFFE RENTI AL/PL ATELE T RDW 12.2 % 11.6-1 5.4 Not Available [facility] ([facility]) [address] [facility], [place], [address], 03/04/2024 08:29:46 03/03/20 24 03/04/2024 CBC WITH DIFFE RENTI AL/PL ATELE T platelets 193 x10e3 /uL 150-45 0 Not Available [facility] ([facility]) [address] [facility], [place], [address], 03/04/2024 08:29:46 03/03/20 24 03/04/2024 CBC WITH DIFFE RENTI AL/PL ATELE T neutrophils 65 % notest ab. Not Available [facility] ([facility]) [address] [facility], [place], [address], 03/04/2024 08:29:46 03/03/20 24 03/04/2024 CBC WITH DIFFE RENTI AL/PL ATELE T lymphs 21 % notest ab. Not Available [facility] ([facility]) [address] [facility], [place], [address], 03/04/2024 08:29:46 03/03/20 24 03/04/2024 CBC WITH DIFFE RENTI AL/PL ATELE T monocytes 11 % notest ab. Not Available [facility] ([facility]) [address] [place], [address], 03/04/2024 08:29:46 03/03/20 24 03/04/2024 CBC WITH DIFFE RENTI AL/PL ATELE T eos 3 % notest ab. Not Available [facility] ([facility]) [address] [place], [address], 03/04/2024 08:29:46 03/03/20 24 03/04/2024 CBC WITH DIFFE RENTI AL/PL ATELE T basos 0 % notest ab. Not Available [facility] ([facility]) [address] [facility], [place], [address], 03/04/2024 08:29:46 03/03/2003/04/2024 CBC WITH DIFFE RENTI AL/PL ATELE T neutrophils (absolute) 4.5 x10e3 /uL 1.4-7. 0 Not Available [facility] ([facility]) [address] [facility], [place], [address], 03/04/2024 08:29:46 03/03/20 24 03/04/2024 CBC WITH DIFFE RENTI AL/PL ATELE T lymphs (absolute) 1.5 x10e3 /uL 0.7-3. 1 Not Available [facility] ([facility]) [address] [facility], [place], [address], 03/04/2024 08:29:46 03/03/2003/04/2024 CBC WITH DIFFE RENTI AL/PL ATELE T monocytes(ab solute) 0.8 x10e3 /uL 0.1-0. 9 Not Available [facility] ([facility]) [address] [place], [address], 03/04/2024 08:29:46 03/03/20 24 03/04/2024 CBC WITH DIFFE RENTI AL/PL ATELE T eos (absolute) 0.2 x10e3 /uL 0.0-0. 4 Not Available [facility] ([facility]) [address] [place], [address], 03/04/2024 08:29:46 03/03/20 24 03/04/2024 CBC WITH DIFFE RENTI AL/PL ATELE T baso (absolute) 0.0 x10e3 /uL 0.0-0. 2 Not Available [facility] ([facility]) [address] [facility], [place], [address], 03/04/2024 08:29:46 03/03/20 24 03/04/2024 CBC WITH DIFFE RENTI AL/PL ATELE T immature granulocytes 0 % notest ab. Not Available [facility] ([facility]) [address] [facility], [place], [address], 03/04/2024 08:29:46 03/03/20 24 03/04/2024 CBC WITH DIFFE RENTI AL/PL ATELE T immature grans (abs) 0.0 x10e3 /uL 0.0-0. 1 Not Available [facility] ([facility]) [address] [facility], [place], [address], 03/04/2024 08:29:46 03/03/2003/04/2024 VITAM IN D, 25-HY [...] Jess tompkins [place]: [facility] . 2. Dilshad fountain [place], Luis bauman [place], Verna off-F errar i CASTANEDA, et al. Evalu ation , treat ment, and preve ntion of vitam in D defic iency : an Endoc rine Socie ty clini carla pract ice guide line. JCEM. 2010; 96(7) :1911 -30. Not Available [facility] ([facility]) [address] [facility], [place], [address], 03/04/2024 08:29:46 10/06/1910/09/2024 MICRO SCOPI C EXAMI NATIO N WBC >30 /hpf 0-5 abnormal Not Available [facility] ([facility]) [address] [facility], [place], [address], 10/09/2024 08:29:50 10/06/19 25 10/09/2024 MICRO SCOPI C EXAMI NATIO N RBC None seen /hpf 0-2 Not Available [facility] ([facility]) [address] [facility], [place], [address], 10/09/2024 08:29:50 10/06/1910/09/2024 MICRO SCOPI C EXAMI NATIO N epithelial cells (non renal) 0-10 /hpf 0-10 Not Available [facility] ([facility]) [address] [facility], [place], [address], 10/09/2024 08:29:50 10/06/19 25 10/09/2024 MICRO SCOPI C EXAMI NATIO N casts None seen /lpf nonese en Not Available [facility] ([facility]) [address] [facility], [place], [address], 10/09/2024 08:29:50 10/06/1910/09/2024 MICRO SCOPI C EXAMI NATIO N mucus threads Presen t notest ab. Not Available [facility] ([facility]) [address] [facility], [place], [address], 10/09/2024 08:29:50 10/06/1910/09/2024 MICRO SCOPI C EXAMI NATIO N bacteria Many nonese en/few abnormal Not Available [facility] ([facility]) [address] [place], [address], 10/09/2024 08:29:50 10/06/1906 1010/09/2024 URINA LYSIS , COMPL ETE specific gravity 1.014 1.005- 1.030 Resul ts from sub-o ptima l speci men perfo rmed at the [facility]. Not Available [facility] ([facility]) [address] [place], [address], 10/09/2024 08:29:50 10/06/19 25 10/09/2024 URINA LYSIS , COMPL ETE pH 5.5 5.0-7. 5 Not Available [facility] ([facility]) [address] [place], [address], 10/09/2024 08:29:50 10/06/19 25 10/09/2024 URINA LYSIS , COMPL ETE urine-color YELLOW yellow Not Available [facility] ([facility]) [address] [place], [address], 10/09/2024 08:29:50 10/06/19 25 10/09/2024 URINA LYSIS , COMPL ETE appearance CLEAR clear Not Available [facility] ([facility]) [address] [place], [address], 10/09/2024 08:29:50 10/06/19 25 10/09/2024 URINA LYSIS , COMPL ETE WBC esterase 2+ negati ve abnormal Not Available [facility] ([facility]) [address] [place], [address], 10/09/2024 08:29:50 10/06/19 25 10/09/2024 URINA LYSIS , COMPL ETE protein NEGATI VE negati ve/tra ce Not Available [facility] ([facility]) [address] [place], [address], 10/09/2024 08:29:50 10/06/19 25 10/09/2024 URINA LYSIS , COMPL ETE glucose NEGATI VE negati ve Not Available [facility] ([facility]) [address] [place], [address], 10/09/2024 08:29:50 10/06/19 25 10/09/2024 URINA LYSIS , COMPL ETE ketones NEGATI VE negati ve Not Available [facility] ([facility]) [address] [place], [address], 10/09/2024 08:29:50 10/06/19 25 10/09/2024 URINA LYSIS , COMPL ETE occult blood NEGATI VE negati ve Not Available [facility] ([facility]) [address] [facility], [place], [address], 10/09/2024 08:29:50 10/06/19 25 10/09/2024 URINA LYSIS , COMPL ETE bilirubin NEGATI VE negati ve Not Available [facility] ([facility]) [address] [place], [address], 10/09/2024 08:29:50 10/06/19 25 10/09/2024 URINA LYSIS , COMPL ETE urobilinogen ,semi-qn 0.2 mg/dL 0.2-1. 0 Not Available [facility] ([facility]) [address] [place], [address], 10/09/2024 08:29:50 10/06/19 25 10/09/2024 URINA LYSIS , COMPL ETE nitrite, urine NEGATI VE negati ve Not Available [facility] ([facility]) [address] [place], [address], 10/09/2024 08:29:50 10/06/19 25 10/09/2024 URINA LYSIS , COMPL ETE microscopic examination SEE BELOW: Micro scopi c was indic ated and was perfo rmed. Not Available [facility] ([facility]) [address] [place], [address], 10/09/2024 08:29:50 10/06/19 25 10/11/2024 URINE CULTU RE, ROUTI NE urine culture, routine Final report Not Available [facility] ([facility]) [address] [facility], [place], [address], 10/11/2024 15:08:49 10/06/19 25 10/11/2024 URINE CULTU RE, ROUTI NE result 1 Commen t Mixed uroge nital jose 25,00 0-50, 000 colon y formi ng units per mL Not Available [facility] ([facility]) [address] [facility], [place], [address], 10/11/2024 15:08:49 10/06/1910/06/2024 urina lysis , dipst [...] 10/06/1910/06/2024 urina lysis , dipst ick Specific Corder 1.020 Not Available In-Off ice Order Internal [...] x10'3 /uL 12/10 1:[address] [facility] Not Available Not Available 12/11/2024 10:19:49 12/11/19 25 12/10/2024 Plate lets [#/vo lume] in Blood platelet [entitic mean volume] in blood 11.3 text: 9.3 - 12.2 fL MPV 11.3 9.3 - 12.2 FL 12/10 1:32 PM [facility]T [facility] Not Available Not Available 12/11/2024 10:19:49 12/11/1912/10/2024 aPTT in Plate let poor plasm a by Coagu latio n assay APTT in platelet poor plasma by coagulation assay 30.6 text: 25.1 - 36.5 sec PTT 30.6 25.1 - 36.5 SEC 12/10 2:05 PM CDT [facility] Not Available Not Available 12/11/2024 10:19:49 12/11/19 25 12/10/2024 Proth rombi n time (PT) prothrombin time (PT) 12.5 text: 10.2 - 12.9 sec PROTI ME 12.5 10.2 - 12.9 SEC 12/10 2:[address] [facility] Not Available Not Available 12/11/2024 10:19:49 12/11/19 25 12/10/2024 Proth rombi n time (PT) INR in platelet poor plasma by coagulation assay 1.1 INR 1.1 12/10 2:05 PM CDT [facility] Not Available Not Available 12/11/2024 10:19:49 11/11/19 24 11/10/2023 CT, brain , w/o contr ast No observ ation record ed. [facility] [address], [place], [address], 11/12/2023 08:32:46 11/14/19 24 11/10/2023 lab* No observ ation record ed. [address] [address], [place], [address], 11/14/2023 16:51:45 11/14/19 24 11/10/2023 lab* No observ ation record ed. [address] [address], [place], [address], 11/14/2023 16:51:37 11/14/19 24 11/10/2023 lab* No observ ation record ed. [address] [address], [place], [address], 11/14/2023 16:51:16 11/15/19 24 11/10/2023 CT, chest , w/o contr ast No observ ation record ed. [address] [address], [place], [address], 11/18/2023 19:03:33 12/04/19 25 12/02/2024 CT, abdom en + pelvi s, w/o contr ast No observ ation record ed. [address] [address], [place], [address], 12/03/2024 10:11:52 12/04/1912/03/2024 XR, urogr am, retro grade No observ ation record ed. [address] [address], [place], [address], 12/04/2024 08:57:18 12/05/19 25 12/03/2024 XR, chest , 2 view No observ ation record ed. [address] [address], [place], [address], 12/04/2024 12:36:09 12/05/19 25 12/04/2024 lab* No observ ation record ed. [email or web address] [address], [place], [address], 12/08/2024 16:24:59 12/08/19 25 12/07/2024 lab* No observ ation record ed. [address], [place], [address], 12/08/2024 16:24:52 12/12/19 25 12/02/2024 trans -thor acic echoc ardio gram (TTE) (PROC ) No observ ation record ed. BAR[facility] Not Available 2024 15:08:48 Result Notes None recorded. Problems Name Problem SNOMED Code Status Onset Date Resolution Date Notes Provider Name and Address Organization Details Recorded Time Pulmonary emphysema 88648186 Active 2021 STELLA CABRERA Attn: Onofre g,[address] [facility], [place], [address], [place] [facility] 3 09:39:54 Chronic atrial fibrillation 951057884 Active 2021 STELLA CABRERA Attn: Accountin g,[address] [facility], [place], [address], [place] [facility] 3 09:39:51 Osteoporosis 18305635 Active 2021 STELLA CABRERA Attn: Accountin g,[address] [facility], [place], [address], [place] [facility] 3 09:39:53 Retention of urine 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 Active 2022 STELLA CABRERA Attn: Accountin g,[address] [facility], [place], [address], [place] [facility] 3 11:26:02 Screening for malignant neoplasm of colon Active 2022 report in chart, due for repeat 2025 STELLA CABRERA Attn: Dodiein g,[address] [facility], [place], [address], [place] [facility] 3 11:02:28 Hyperlipidemi a 61758042 Active 2023 STELLA CABRERA Attn: Onofre singletary,[address] [facility], [place], [address], [facility] - [facility] 4 14:16:29 Notes:Some problems listed i n Document: #[id number] could not be added to this patient's chart. Please review this document and add these problems to the patient's chart manually as needed. Problem Notes None recorded. Medical Equipment None Reported. [...] Not Available Not Available No t Available diltiazem ER 120 mg capsule,24 hr,extended release TAKE 1 CAPSULE BY MOUTH IN THE MORNING active Not Available Not Available No t Available baclofen 10 mg tablet 11/28 completed Not Available Not Available Not Available cephalexin 500 mg capsule TAKE 1 CAPSULE BY MOUTH EVERY 8 HOURS FOR 7 DAYS active Not Available Not Available No t Available lidocaine 5 % topical patch Apply [...] 24 hr TAKE 1 TABLET BY MOUTH EVERY 12 HOURS active Not Available Not Available No t Available ergocalcife rol (vitamin D2) 1,250 mcg (50,000 unit) capsule TAKE 1 CAPSULE BY MOUTH ONCE A WEEK WITH MEALS FOR 90 DAYS active Not Available Not Available No t Available albuterol sulfate HFA 90 mcg/actuati on aerosol inhaler INHALE 2 PUFFS BY MOUTH EVERY 6 HOURS NEEDED FOR WHEEZING FOR SHORTNESS OF BREATH active Not Available Not Available No t Available amoxicillin 500 mg-potassiu m clavulanate 125 mg tablet TAKE 1 TABLET BY MOUTH EVERY 12 HOURS FOR 3 DAYS active Not Available Not Available No [...] BY MOUTH ONCE A WEEK WITH MEALS active Not Available Not Available No t Available GaviLyte-G 236 gram-22.74 gram-6.74 gram-5.86 gram oral [...] Not Available Not Available Vitals Date Recorded Systolic blood pressure Diastolic blood pressure Provider Name and Address Organization Details Last Updated DateTime 10/06/2024 110 mm[Hg] 70 mm[Hg] STELLA CABRERA Attn: Accounting,[address] [place], [address], [facility] 10/06/2024 11:57:36 Date Recorded Body height Body mass index (BMI) Body weight Oxygen saturation Oxygen saturation in Arterial blood by Pulse oximetry Heart rate Respiratory rate Systolic blood pressure Diastolic blood pressure Provider Name and Address Organization Details Last Updated DateTime 5 185.42 cm 26.6 kg/m2 74770.4 7 g 97 % 97 % 68 /min 18 /min 140 mm[Hg] 80 mm[Hg] Diana Gottlieb MA [facility] 5 09:31:59 Date Recorded Body height Body mass index (BMI) Body weight Oxygen saturation Oxygen saturation in Arterial blood by Pulse oximetry Heart rate Respiratory rate Systolic blood pressure Diastolic blood pressure Provider Name and Address Organization Details Last Updated DateTime 4 185.42 cm 27.1 kg/m2 17704.8 4 g 97 % 97 % 105 /min 20 /min 110 mm[Hg] 70 mm[Hg] Diane Mcclain MA [facility] 4 15:18:38 Date Recorded Body height Body mass index (BMI) Body weight Oxygen saturation Oxygen saturation in Arterial blood by Pulse oximetry Heart rate Respiratory rate Systolic blood pressure Diastolic blood pressure Provider Name and Address Organization Details Last Updated DateTime 4 185.42 cm 27.1 kg/m2 92211.8 4 g 97 % 97 % 75 /min 18 /min 104 mm[Hg] 68 mm[Hg] Diane Mcclain MA [facility] 4 09:15:27 Social History Question Answer Notes LastModified by Organizat ion Details LastModified Time Tobacco Smoking Status Former Smoker Grisel Arenas [place] null, [place] - [place] 05/22/2018 10:57:33 Do You Have An Advance Directive? No Information not available 05/22/2018 Are You Blind Or Do You Have Difficulty Seeing? No Information not available 12/29/2020 What Is Your Level Of Caffeine Consumption? Moderate Information not available 05/22/2018 How Much Tobacco Do You Chew? None Information not available 05/22/2018 In The 14 Days Before Symptom Onset, Have You Had Close Contact With A Laboratory-confir med COVID-19 While That Case Was Ill? No [...] You Passively Exposed To Smoke? Yes Information no t available 12/29/2020 How Much Tobacco Do You Smoke? 1 PPD Information not available 12/29/2020 Do You Use Sunscreen Routinely? Yes [email or web address] Information not available 11/28/2021 Has Tobacco Cessation Counseling Been Provided? Yes [email or web address] Information not available 02/07/2023 On What Date Was Tobacco Cessation Counseling Provided? 10/06/2024 Information not available 10/06/2024 How Many Years Have You Smoked Tobacco? 45 Quit 2018 [email or web address] Information not available 11/28/2021 Sex: Male Functional Status Question Answer Note LastModified by Organizat ion Details LastModified Time Do you use any illicit or recreational drugs? Yes marijuana occasionally Information not available 12/29/2020 What is your level of alcohol consumption? None Information not available 12/29/2020 Are you currently employed? No Information not available 12/29/2020 Are you able to care for yourself? Yes Information not available 12/29/2020 What is your exercise level? Occasional Information not available 05/22/2018 Mental Status Question Answer Note LastModified by Organization D etails LastModified Time Do you feel stressed (tense, restless, nervous, or anxious, or unable to sleep at night)? [id number] Information not available 12/29/2020 Family History Nothing Reported. Medical History Condition Response Coronary Artery Disease N Other N Atrial Fibrillation Y High Blood Pressure N Depression N COPD Y Blood Clots N Anxiety Disorder Y Muscle, Joint, or Bone Problems Y Acid Reflux (GERD) Y Cancer N Stroke N Headaches Y Kidney or Bladder Problems N Skin Problems Y Asthma N Allergies Y Hepatitis N ADHD N High Cholesterol N Liver Disease N Thyroid Problems N GI Problems N Anemia N Heart Attack (CO) N Diabetes N Seizures/Epilepsy N Osteoporosis Y Heart Failure Y Immunizations Vaccine Type Date Status Note Provider Nam e and Address Organization Details Recorded Time Influenza, split virus, quadrivalent, PF 05/07/2018 completed Not Available [employer] 0 02:35:59 Past Encounters Encounter ID Performer Location Encounter Start Date Encounter Closed Date Diagnosis/Indication Diagnosis SNOMED-CT Code Diagnosis ICD10 Code Diagnosis Note [id number] Jazmin Abel MD [facility] [address] [place] [address] 04/22/2018 11:02:50 04/22/2018 13:23:37 Moderate persistent asthma 820649706 J45.40 continue incruse ellipta and ventolin Osteoporosis 83857160 M8 1.0 poor healing after fracture of the right shoulder Pulmonary emphysema 8743 3001 J43.9 Atrial fibrillation 4943 6004 I48.91 had heart cath; no blockage of arteries; get occasional pain and palpitatio ns; takes aspirin. Arthritis 1089786 M19.90 takes baclofen for muscle spasms History of tobacco use 3038372586 103 Z87.891 discussed screening for early lung cancer. Pain of mu ltiple joints 88412784 M25.50 Standard ed adult depression screening tool completed 1691556591 21086 Z13.89 patient has mild depression . Body mass index 25-29 - overweight 433561496 Z68.25 discussed low fat, low carb diet, and encouraged exercise. It should be noted that patient has lost 2 inches of height due to his osteoporos is, so his actual BMI would be in the normal range if he had not had problems with osteoporos is. [id number] Jazmin Abel MD [facility] [address] [place] [address] 05/06/2018 14:40:41 05/06/2018 16:52:20 Atrial fibrillation 07992858 I48.91 had heart cath; no blockage of arteries; get occasional pain and palpitatio ns; takes aspirin. Osteoporosis 29318826 M8 1.0 poor healing after fracture of the right shoulder Active or passive immunization 389652799 Z23 risks and benefits of immunizati ons reviewed. History of disorder of vision 4289540993 58994 Z86.69 may have retinal detachment or ocular migraines. [id number] Jazmin Abel MD [facility] [address] [place] [address] 05/22/2018 10:36:31 05/27/2018 14:48:08 Persistent insomnia 704401193 G47.09 uses CPAP Obstructiv e sleep apnea of adult 8727889739 103 G47.33 has a machine, needs a good nasal mask--I would recommend [facility] nasal mask, extra large due to large nose. [id number] Jazmin Abel MD [facility] [address] [place] [address] 06/24/2018 13:43:02 07/02/2018 16:09:29 Bilateral carpal tunnel syndrome 8441868094 8116567 G56.03 numb and painful along ulnar nerve distributi on; weakness worse with driving. Unsteady when walking 22 878272 R26.89 likely to fall and become injured. Generalize d osteoarthritis 925245045 M15.9 hurts to sit for a prolonged period of time, trouble going up or down stairs, gets back spasms with prolonged standing. Osteoporos is makes more likely to have a fracture if he falls but he is not steady while walking. Presbyopia 53192121 H52. 4 diplopia, trouble like horizontal lines flipping across vision. [id number] Rashad Blanco MD [facility] [address] [place] [address] 07/09/2018 11:05:05 07/11/2018 15:08:29 Chronic blepharitis 90173619 H01.009 Twitching eye 275957771 H55.89 [id number] Jazmin Abel MD [facility] [address] [place] [address] 04/03/2019 11:36:01 04/06/2019 09:49:19 Angina pectoris 540861449 I20.9 Pain in left knee 994387 1578 33108 M25.562 Screening for malignant neoplasm of colon 784554033 Z12.11 Pain of bi lateral hip joints 7360020200 0259743 M25.551 M25.552 Pain of ri ght shoulder joint 1936288179 3363334 M25.511 Standardiz ed adult depression screening tool completed 5743249820 76810 Z13.89 patient has mild depression . Will be monitored. Denies suicidal or homicidal ideation, enjoys being with friends, sleeping and eating normally. [id number] Jazmin Abel MD [facility] [address] [place] [address] 06/11/2019 16:52:08 06/15/2019 10:03:16 Coronary atherosclerosis 527694477 I25.119 intermitte nt chest pain, and calcium deposits in coronary arteries. Patient has prescripti on for NTG. Lumbago with sciatica 20 0061383 M54.40 Depression screening 171 057403 Z13.31 Mild depression ; will monitor and consider adding an SSRI. Chronic ob structive pulmonary disease 56836499 J44.9 Patient uses Incruse ellipta to prevent bronchospa sm, and albuterol inhaler as needed for wheezing. [id number] Jazmin Abel MD [facility] [address] [place] [address] 07/23/2019 15:51:39 07/30/2019 03:47:29 [id number] Jazmin Abel MD [facility] [address] [place] [address] 08/27/2019 13:43:29 09/01/2019 00:09:42 [id number] Jazmin Abel MD [facility] [address] [place] [address] 12/29/2020 10:04:23 12/29/2020 17:00:49 Change in skin lesion 583848694 L98.9 non healing lesion in left side of neck under watson for 2.5 years. Vitamin D deficiency 347 72654 E55.9 Macrocytos is - no anemia 944229571 D75.89 Osteoporosis 15832902 M8 1.0 poor healing after fracture of the right shoulder Angina pectoris 23331766 0 I20.9 Pain in left arm 6067448 00 M79.602 Moderate p ersistent asthma 594545629 J45.40 continue incruse ellipta and ventolin Depression screening 171 654859 Z13.31 mild to minimal depression [id number] Petey melgar MD [facility] [address] [place] [address] 11/28/2021 13:39:49 11/29/2021 10:49:48 Pulmonary emphysema 82849552 J43.[address] scan 2019quit smoking 2019SOB with walking up inclineno SOB at restcontro lled on on ventolin and advairPEx- decreased breath sounds due to emphysemad ue for repeat low dose CT scan Osteoporosis 28967204 M8 1.0 DEXA 2018 showed osteoporos haylee alendronat edue for repeatre-c heck Vit D level Chronic at rial fibrillation 237795667 I48.20 on ASA 81 mglast saw Cardiology 2019, ddx with CAD, cardiomyop athy, and chronic A fibdue for f/u cardio Screening for malignant neoplasm of colon 770852349 Z12.11 has never had colon cancer screenno bowel changes, diarrhea, or constipati onno blood in stoolorder ed cologuard Adult heal th examination 943208246 Z00.00 routine labs Dizziness 365215900 R42 intermitte nt x1 molasts a couple seconds and then goes awayoccurs with position changessit ting to standing, laying flat on bedno concerning sxdiscusse d cardio/hailee ro/orthost atic/BPPVe ncouraged increasing fluid intakef/u if sx do not improve Depression screening 171 904479 Z13.31 PHQ 4 [id number] Petey melgar MD [facility] [address] [place] [address] 12/13/2022 09:29:48 12/13/2022 10:00:15 Chronic atrial fibrillation 201462652 I48.20 12/13/22:unk nown last time he saw cardioPEx- heart rate irregularl y irregulars tates that he has been taking his meds, chart review shows last fill 04/202211/28/21:on ASA 81 mglast saw Cardiology 2019, ddx with CAD, cardiomyop athy, and chronic A fibdue for f/u cardio Screening for malignant neoplasm of colon 150766817 Z12.11 cologuard positiveco lonoscopy 01/2022 showed adenoma, rec'd repeat in 1 yrdue for repeatwill send referral Depression screening 171 942817 Z13.31 PHQ 6 Retention of urine 86722 4002 R33.9 x1 yrfeels like he has to go and dribbles, occurs a couple times/week trial flomaxf/u in 2 wks Fracture o f multiple ribs 9237512 S22.42XA 12/06/22 CTA chest: moderate emphysema, 4 [...] 2 wks Closed fra cture of sternum 09070351 S22.20XA non-displa cedPEx- diffuse ecchymosis to mid chest/ster nal areac/w lidocaine patches and tylenol PRN [id number] Petey melgar MD [facility] [address] [place] [address] 12/28/2022 12:00:47 12/28/2022 12:52:39 Fracture of multiple ribs 7229391 S22.42XA 12/28/22:ta turner OTC pain relief 500 [...] 2 wks Closed fra cture of sternum 51149521 S22.20XA 12/28/22:pa in is improving 12/13/22:non -displaced PEx- diffuse ecchymosis to mid chest/ster nal areac/w lidocaine patches and tylenol PRN Retention of urine 43001 4002 R33.9 12/28/22:im provement with flomaxdrib chelsie has decreased 12/13/22:x1 yrfeels like he has to go and dribbles, occurs a couple times/week trial flomaxf/u in 2 wks Chronic at rial fibrillation 238480654 I48.20 12/28/22:ca rdio note 01/2022 on ASA 325refer back to Dr. Carlson 12/13/22:unk nown last time he saw cardioPEx- heart rate irregularl y irregulars tates that he has been taking his meds, chart review shows last fill 04/202211/28/21:on ASA 81 mglast saw Cardiology 2019, ddx with CAD, cardiomyop athy, and chronic A fibdue for f/u cardio Screening for malignant neoplasm of colon 817291845 Z12.11 12/28/22: Dr Burnham office aware, advised pt to contact office for appt 12/13/22:col oguard positiveco lonoscopy 01/2022 showed adenoma, rec'd repeat in 1 yrdue for repeatwill send referral Pulmonary emphysema 8743 3001 J43.9 on two inhalers, doesn't know which oneper pharmacy, was on ventolin, fluticason e- scripts have not been picked up in over 1 yrrefer to pulmf/u in 1 mo Osteoporosis 35098015 M8 1.0 DEXA 2018 showed osteoporos haylee alendronat edue for repeatre-c heck Vit D levelorder ed DEXAf/u in 1 mo Overweight 791018633 E66 .3 due for routine labs [id number] Petey melgar MD [facility] [address] [place] [address] 02/07/2023 10:44:18 02/07/2023 11:32:00 Fracture of multiple ribs 4646842 S22.42XA 02/07/23:pa in is improving 12/28/22:bernardo tompkins [...] 2 wks Closed fra cture of sternum 57479115 S22.20XA 02/07/23:ab le to take deep breaths w/o painno longer needs lidocaine patches 12/28/22:pa in is improving 12/13/22:non -displaced PEx- diffuse ecchymosis to mid chest/ster nal areac/w lidocaine patches and tylenol PRN Chronic at rial fibrillation 333598408 I48.20 02/07/23:PE x- HR irregularl y irregularp [...] yrrefer to pulmf/u in 1 mo Osteoporosis 09116326 M8 1.0 02/07/23:c/ w Vit Dwill not continue alendronat egave exercises to do at home 11/28/21DE XA 2018 showed osteoporos haylee alendronat edue for repeatre-c heck Vit D levelorder ed DEXAf/u in 1 mo Screening for malignant neoplasm of colon 985751813 Z12.11 02/07/23: colonoscop y scheduled 12/28/22: Dr Burnham office aware, advised pt to contact office for appt 12/13/22:col oguard positiveco lonoscopy 01/2022 showed adenoma, rec'd repeat in 1 yrdue for repeatwill send referral Hyperlipidemia 08816900 E78.5 refill Depression screening 171 967870 Z13.31 PHQ 3 [id number] Petey melgar MD [facility] [address] [facility] [address] 04/05/2023 10:39:19 04/08/2023 16:05:09 Chronic atrial fibrillation 759969970 I48.20 04/05/23:sa ruby Carlson on 02/22/23: afib- asymptomat ic, on ASA 325, [id number] 0, f/u in 6 mo, discussed results [...] chronic A fibdue for f/u cardio Osteoporosis 65389853 M8 1.0 04/05/23:DE XA 12/2022: osteopenia L [...] mo Pulmonary emphysema 8743 3001 J43.9 04/05/23:sa ruby Anthony on 02/27/23: c/w airduo, gave [...] mo Screening for malignant neoplasm of colon 605991786 Z12.11 04/05/23:tu bular adenomas, repeat 202502/07/23: colonoscop y scheduled 12/28/22: Dr Burnham office aware, advised pt to contact office for appt 12/13/22:col oguard positiveco lonoscopy 01/2022 showed adenoma, rec'd repeat in 1 yrdue for repeatwill send referral Depression screening 171 674718 Z13.31 PHQ 0 Closed fra cture of sternum 84403063 S22.20XA 04/05/23:st ill c/o mid sternal painworse [...] nal areac/w lidocaine patches and tylenol PRN [id number] Petey melgar MD [facility] [address] [place] [address] 10/10/2023 09:07:50 10/10/2023 09:47:19 Chronic atrial fibrillation 825237315 I48.20 10/10/23: saw Dr. Carlson 08/2023, EF 40%, stopped losartanne ed consult note 04/05/23:sa w Dr. Carlson on 02/22/23: afib- asymptomat ic, on ASA 325, [id number] 0, f/u in 6 mo, discussed results [...] 1 mo Dupuytren' s contracture of finger 391984664 M72.0 bilateral pinky fingersa/w intermitte nt numbnessre mark to hand surgery Dizziness 641097155 R42 10/10/23: x3 wksoccurs with position changes [...] sx do not improve Depression screening 171 893747 Z13.31 PHQ 8 [id number] Petey melgar MD [facility] [address] [place] [address] 11/14/2023 15:13:06 11/14/2023 15:48:53 Neck pain 67899933 M54.2 s/p fall 11/10/23wen t to ED, CT brain, CT C spine, CT chest, XR R shoulder normaltaki ng tizanidine with some improvemen tc/o pulling to R side of neck and R shoulderPE x- FROM R shoulder joint and C spinept requesting PT for neck pain, will send referral Dupuytren' s contracture of finger 654701030 M72.0 11/14/23: saw Dr. Hayes 10/31/23- dupuytren' s disease R hand, discussed surgery vs injections 10/10/23:bi lateral pinky fingersa/w intermitte nt numbnessre mark to hand surgery [id number] Petey melgar MD [facility] [address] [place] [address] 01/08/2024 09:11:55 01/08/2024 09:27:38 Neck pain 92042798 M54.2 01/08/24: improvemen t in neck pain [...] yrrefer to pulmf/u in 1 mo Hyperlipidemia 18667957 E78.5 refill Depression screening 171 236228 Z13.31 PHQ 0 Chronic at rial fibrillation 004618689 I48.20 01/08/24: HR irregularl y irregular, chronic 10/10/23: saw Dr. Carlson 08/2023, EF 40%, stopped losartanne ed consult note 04/05/23:sa ruby Carlson on 02/22/23: afib- asymptomat ic, on ASA 325, [id number] 0, f/u in 6 mo, discussed results [...] and chronic A fibdue for f/u cardio [id number] Petey melgar MD [facility] [address] [place] [address] 03/03/2024 12:20:31 03/03/2024 12:43:41 Adult health examination 872884248 Z00.00 routine labs [id number] Cyrus Lucas MD [facility] [address] [place] [address] 10/06/2024 09:19:56 10/06/2024 10:00:17 Pulmonary emphysema 68216443 J43.9 10/06/24: pt is not on air [...] in 1 mo Chronic at rial fibrillation 565921846 I48.20 10/06/24: OV with Dr. Carlson 09/02/24- discussed echo results, do not see results in consult notec/w metoprolol 50 and ASA 325 01/08/24: HR irregularl y irregular, chronic 10/10/23: saw Dr. Carlson 08/2023, EF 40%, stopped losartanne ed consult note 04/05/23:sa w Dr. Carlson on 02/22/23: afib- asymptomat ic, on ASA 325, [id number] 0, f/u in 6 mo, discussed results [...] fibdue for f/u cardio Retention of urine 22201 4002 R33.9 10/06/24 increase flomax to 0.8 mg 12/28/22:im provement with flomaxdrib chelsie has decreased 12/13/22:x1 yrfeels like he has to go and dribbles, occurs a couple times/week trial flomaxf/u in 2 wks Dysuria 39898314 R30.0 10/06/24: intermitte nt, before and during urination x3 mono hematurian o h/o kidney stonesurin e dip showed moderate leuks and moderate non-hemoly zed bloodsent for UA, did not provide enough urine, will come back to leave urine sample for culture Depression screening 171 183150 Z13.31 PHQ 0 Strain of thoracic region 41838862 S29.019A twisted the wrong way on his stairs yesterday and pulled muscle on the right side of his backrec'd heating, light stretching pt has tizanidine script [id number] Cyrus Lucas MD [facility] [address] [facility] [address] 10/08/2024 12:55:58 10/08/2024 13:06:40 Health Concerns Section Related Observation LastModified by Organization Detai ls LastModified Time None Recorded Concern Status LastModified by Organization Details LastModified Time None Recorded Advance Directives Directive N: Payers Encounter Date Sequence Insurance Name Policy Number Policy Hankins Covered Member ID Hankins Member ID Guarantor Name 11/14/2023 1 [place] Stanislav O Cho [id number] Stanislav Amish Cho 11/14/2023 1 [facility] [id number] Stanislav O Cho [id number] Stanislav Amish Cho 01/08/2024 1 [place] Stanislav O Cho [id number] Stanislav Amish Cho 01/08/2024 1 [facility] [id number] Stanislav O Cho [id number] Stanislav Amish Cho 03/03/2024 1 [place] Stanislav O Cho [id number] Stanislav Amish Cho 03/03/2024 1 [facility] [id number] Stanislav O Cho [id number] Stanislav Amish Cho 10/06/2024 1 [facility] (MEDICARE REPLACEMENT/ ADVANTAGE - HMO) [id number] Stanislav Cho [id number] Stanislav Amish Cho 10/08/2024 1 [facility] (MEDICARE REPLACEMENT/ ADVANTAGE - HMO) [id number] Stanislav Cho [id number] Stanislav Amish Cho Notes Date Note Type [...] in 2013. STELLA CABRERA Attn: Accounting,[address] [facility], [place], [address], [facility] 11/17/2023 13:19:40 01/08/2024 text/html Pt presents for f/u. Reports that his neck pain has improved with physical therapy and has his final evaluation tomorrow. States that his R shoulder has been bothering me more with exercises from PT. Declines referral or work-up for R shoulder pain. STELLA CABRERA Attn: Accounting,[address] [facility], [place], [address], [facility] 01/08/2024 13:16:36 10/06/2024 text/html Pt presents for 6 mo f/u. C/o intermittent burning sensation before and during urination x3 months. C/o urinary retention and sometimes only urinates 1-2 ounces. He has been compliant with flomax. Admits to drinking tea all day and wakes up 5-6x per night to urinate. Denies hematuria. STELLA CABRERA Attn: Accounting,[address] [facility], [place], [address], [facility] 10/06/2024 14:11:45
[2025-01-18 12:45] VITALS: BP 93/58; PULSE 80; RESP 16; TEMP 36.7; O2SAT 98
[2025-01-18 13:00] VITALS: BMI 25.0
--- NOTE | 2025-01-18 15:07 | P.PNAN_ITS ---
Anes - Initial Pre Proc Eval Procedure: Operation Date: 01/18/25 15:00 Proposed Procedures p Insertion Brenda Cath - Yusef Domingo MD Date/Time: 01/18/25 15:07 Surgeon: Yusef Domingo MD Pre Op Diagnosis: malignant neoplasm of urinary bladder Patient Data Age: 69 Gender: M Height: 1.85 m Weight: 86 kg Last Vital Signs Temp 36.7 C 01/18/25 12:45 Pulse 80 01/18/25 12:45 Resp 16 01/18/25 12:45 BP 93/58 L 01/18/25 12:45 Pulse Ox 98 01/18/25 12:45 Allergies Allergy/AdvReac Type Severity Reaction Status Date / Time No Known Allergies Allergy Verified 01/18/25 13:35 Home Medications ?Medication ?Instructions ?Recorded ?Confirmed ?Type ergocalciferol (vitamin D2) 1,250 1,250 mcg PO WEEKLY 02/09/21 01/07/25 History mcg (50,000 unit) capsule nitroglycerin 0.4 mg sublingual 0.4 mg sublingual Q5M PRN Chest 02/09/21 01/07/25 History tablet Pain vitamin B12 0.5 mg-folic acid 1 mg 1 tablet PO DAILY 02/09/21 01/18/25 History tablet aspirin 325 mg tablet,delayed 325 mg PO DAILY 12/20/21 01/18/25 History release atorvastatin 40 mg tablet 40 mg PO DAILY 12/27/21 01/18/25 History tamsulosin 0.4 mg capsule 0.8 mg PO QAM 02/18/23 01/18/25 History albuterol sulfate 90 mcg/actuation 2 puff inhalation Q6H PRN 12/02/24 01/18/25 History aerosol inhaler shortness of breath or wheezing budesonide-formoterol HFA 160 2 puff inhalation DAILY 12/02/24 01/18/25 History mcg-4.5 mcg/actuation aerosol inhaler (Symbicort) metoprolol succinate 50 mg 50 mg PO BID #60 tabs 01/05/25 01/18/25 Rx tablet,extended release 24 hr aspirin 81 mg tablet,delayed 81 mg PO DAILY 01/07/25 01/18/25 History release (Adult Low Dose Aspirin) Patient hx anesthesia problems: none Family hx anesthesia problems: none Results Review: All pre-operative results and documents have been reviewed as part of the pre- operative evaluation. [facility] Past Medical History Medical History Emphysema lung Acute arthritis Rheumatoid osteoperiostitis Afib Surgical History Surgical History History of surgery on arm History of shoulder surgery Family History Family History Sibling Heart disease Skin cancer Social History Social History Smoking packs per day: 2 Smoking cigarettes per day: 40.0 Years smoked: 50 Smoking pack-years: 100.00 Smoking status: Former smoker Tobacco type: cigarettes Second hand tobacco smoke exposure: No Smoking end date: 08/12/16 Alcohol intake: former Drinks per week: 4 Substance use: current Substance use type: marijuana Other substance usage details: daily use Last use: 11/30/24 Do You Feel Safe in your Home?: Yes Lack of Transportation: No Lack of Food: Never True Current Housing: I Have Housing Concerned About Future Housing: No Difficulty Paying Gas/Electric Bills: No Difficulty Paying for Meds: No Currently Unemployed: No Education: High School Diploma/GED Difficulty w/ Childcare or Family Care: No Living arrangements: alone Gender identity (if verbalized by the patient): Male Spiritual care concerns: No Anes - Eval Final PreProcedure Day of Procedure 01/18/25 15:07 Patient weight: normal Heart: regular rate and rhythm Lungs: clear to auscultation Airway: Mallampati scale class II Neurological: alert and oriented Last oral intake: >/= 8 hours ASA classification: III Emergent: no Anesthetic plan: proceed Anesthesia type and monitoring: general GIVS and standard monitoring Results Review: All pre-operative results and documents have been reviewed as part of the pre- operative evaluation. Informed Consent: The patient's anesthetic plan and its attendant risks and benefits were discussed with the patient/family/POA. Questions were solicited and answers provided to the satisfaction of the patient/family/POA.
--- NOTE | 2025-01-18 15:47 | PM.IMHP ---
H&P: HPI History of Present Illness Date/Time: 01/18/25 15:47 Chief Complaint: Bladder cancer Narrative: Patient is a 69-year-old gentleman was recently diagnosed with bladder cancer. He is to undergo chemotherapy treatments. He needs a rubia catheter to begin his chemotherapy treatments and presents now for placement of the rubia catheter. Review of Systems Review of Systems: The remainder of the review of systems to include constitutional, HEENT, cardiovascular, respiratory, GI, , integumentary, musculoskeletal, endocrine, immunologic, hematologic, psychiatric, and neurologic are all negative except for which is mentioned above in the HPI. [facility] Past Medical History Medical History Emphysema lung Acute arthritis Rheumatoid osteoperiostitis Afib Surgical History Surgical History History of surgery on arm History of shoulder surgery Family History Family History Sibling Heart disease Skin cancer Social History Social History Smoking packs per day: 2 Smoking cigarettes per day: 40.0 Years smoked: 50 Smoking pack-years: 100.00 Smoking status: Former smoker Tobacco type: cigarettes Second hand tobacco smoke exposure: No Smoking end date: 08/12/16 Alcohol intake: former Drinks per week: 4 Substance use: current Substance use type: marijuana Other substance usage details: daily use Last use: 11/30/24 Do You Feel Safe in your Home?: Yes Lack of Transportation: No Lack of Food: Never True Current Housing: I Have Housing Concerned About Future Housing: No Difficulty Paying Gas/Electric Bills: No Difficulty Paying for Meds: No Currently Unemployed: No Education: High School Diploma/GED Difficulty w/ Childcare or Family Care: No Living arrangements: alone Gender identity (if verbalized by the patient): Male Spiritual care concerns: No Meds Home Medications and Allergies Home Medications ?Medication ?Instructions ?Recorded ?Confirmed ?Type ergocalciferol (vitamin D2) 1,250 1,250 mcg PO WEEKLY 02/09/21 01/07/25 History mcg (50,000 unit) capsule nitroglycerin 0.4 mg sublingual 0.4 mg sublingual Q5M PRN Chest 02/09/21 01/07/25 History tablet Pain vitamin B12 0.5 mg-folic acid 1 mg 1 tablet PO DAILY 02/09/21 01/18/25 History tablet aspirin 325 mg tablet,delayed 325 mg PO DAILY 12/20/21 01/18/25 History release atorvastatin 40 mg tablet 40 mg PO DAILY 12/27/21 01/18/25 History tamsulosin 0.4 mg capsule 0.8 mg PO QAM 02/18/23 01/18/25 History albuterol sulfate 90 mcg/actuation 2 puff inhalation Q6H PRN 12/02/24 01/18/25 History aerosol inhaler shortness of breath or wheezing budesonide-formoterol HFA 160 2 puff inhalation DAILY 12/02/24 01/18/25 History mcg-4.5 mcg/actuation aerosol inhaler (Symbicort) metoprolol succinate 50 mg 50 mg PO BID #60 tabs 01/05/25 01/18/25 Rx tablet,extended release 24 hr aspirin 81 mg tablet,delayed 81 mg PO DAILY 01/07/25 01/18/25 History release (Adult Low Dose Aspirin) Allergies Allergy/AdvReac Type Severity Reaction Status Date / Time No Known Allergies Allergy Verified 01/18/25 13:35 Vital Signs Vital Signs - 24 hr 01/18/25 12:45 Temperature 36.7 C Pulse Rate 80 Respiratory Rate 16 Blood Pressure 93/58 L Pulse Oximetry 98 Exam Const: General: comfortable and no acute distress HENMT: Ears: TM's normal bilaterally Face/Nose/Sinus: Normal nares present Mouth: Yes moist mucous membranes Eyes: General: appearance normal, both eyes and all related structures Sclera: sclerae normal Pupils: Equal, round and reactive pupils present EOM: EOMs intact bilaterally Neck: Neck: supple and no JVD Chest: Other: No rashes in the upper anterior chest. No masses. Clavicle symmetric bilaterally. Resp: Effort & Inspection: normal respiratory effort Auscultation: clear to auscultation bilaterally Cardio: Rate: regular rate Rhythm: regular rhythm GI: GI Palp: Yes Soft to palpation, No Firmness to palpation present (GI), No Tenderness to palpation present (GI), No Guarding due to palpation present (GI) and No Hernia present Skin: General skin exam: normal color and no rashes or lesions noted Neuro: General: gait normal Speech: normal speech Motor exam (neuro): 5/5 motor strength present throughout Sensory Exam: normal sensation Extrem: General: normal to inspection Psych: Mental Status: mental status grossly normal Affect: normal affect Assessment and Plan Assessment and plan (1) 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 He is to start chemotherapy treatments soon and presents today for placement of rubia catheter for administration of chemotherapy. Will proceed with placement of a rubia catheter today under IV sedation and local. Risks, benefits, indications, and expected outcomes were discussed with the patient. Specifically risk for iatrogenic pneumothorax and need for chest tube placement as well as bleeding requiring blood transfusion was discussed with the patient. He understands and wishes to proceed.
--- NOTE | 2025-01-18 15:50 | WPDHPUPDATE1 ---
History and Physical Update Update Date/Time: 01/18/25 15:50 History and Physical has been reviewed, including an updated exam of the patient. There are NO changes in the patient's condition. Risks, benefits, and alternatives have been discussed and questions answered. Patient agrees to proceed with procedure.
[2025-01-18] MEDS: ceFAZolin 2 GM/D5W 50 ML 2 GM/50 ML BAG IVPB (16:00)
[2025-01-18] MEDS: LIDO 1%/EPINEPHRINE 1:100,000 50 ML VIAL 10 ML INFILTRATE (16:23)
[2025-01-18] MEDS: BUPivacaine HCL 0.5% 10 ML AMP INFILTRATE (16:23)
[2025-01-18] MEDS: HEPARIN SODIUM 5,000 UNITS/ML VIAL 5000 UNITS IRRIGATION (16:24)
[2025-01-18] MEDS: HEPARIN SODIUM 5,000 UNITS/ML VIAL 1000 UNITS IRRIGATION (16:25)
[2025-01-18 17:04] VITALS: BP 88/54; PULSE 87; RESP 18; O2SAT 100
[2025-01-18] MEDS: LACTATED RINGERS 1,000 ML 30 ML IV CONT ×2 (17:04)
--- NOTE | 2025-01-18 17:09 | P.OP_ITS ---
Procedure Note - Detailed Date of Procedure 01/18/25 Pre-op Diagnosis Malignant neoplasm of urinary bladder Post-op Diagnosis Same Procedure Performed Placement of right internal jugular vein single-lumen port a catheter with intraoperative fluoroscopy Surgeon Yusef Domingo MD Child Welfare Consultant Rehana REGALADO Anesthesia MAC Indications Patient is a 69-year-old gentleman who has been diagnosed with bladder cancer. He has been seen by Oncology and is to begin chemotherapy treatments. He presents today for placement rubia catheter to begin chemotherapy treatments. Findings None significant Description of Procedure After informed consent was obtained patient brought to the operating room placed supine position and IV sedation was administered by anesthesia. The bilateral upper anterior neck and chest was then prepped and draped usual sterile fashion. Time-out was then performed correctly identifying the patient as well as procedure to be performed. He was given perioperative IV antibiotics. Approach placement of the rubia catheter via the right internal jugular vein. The patient head-down Trendelenburg position I anesthetized the area between the 2 heads of the sternocleidomastoid muscle with 1% lidocaine mixed with 0.5% Marcaine. I then used a long 18gauge spinal needle to cannulate the right internal jugular vein on 1st pass percutaneously without any difficulty. There was prompt return of dark venous appearing blood. A guidewire was advanced through the needle into the right internal jugular vein subsequent down into the superior vena cava. Intraoperative fluoroscopy was then used to determine that the tip of the guidewire was in the proper position. I then proceeded to anesthetize the area the right upper anterior chest where the port pocket would be placed. This is done with the same local anesthetic mixture. Once this was done a transverse incision was then made this area the scalpel the dissection was carried down through the subcu tissue electrocautery. Once I reached the anterior pectoralis major fascia I then dissected in this plane inferior to the incision to create the subcutaneous port pocket. With electrocautery dissection and blunt finger dissection the port pocket was created. I then enlarged the insertion site of the guidewire with a scalpel and then tunneled the 9.6 Jordanian single-lumen silastic catheter between the chest incision and neck incision. I then advanced a dilator breakaway sheath over the guidewire. The guidewire and dilator were removed leaving the sheath in place. The catheter was then advanced through the sheath into the right internal jugular vein subsequent down into the right atrium of the heart. The sheath was then torn away leaving the catheter in place. Intraoperative fluoroscopy was then used to visualize the tip of the catheter and then with traction on the catheter externals the chest wall I pulled back into the tip of the catheter was in the distal superior vena cava. The catheter was then cut to the appropriate length at the skin level and then attached to the titanium Smart Port. The Smart port was then secured in subcutaneous port pocket on 3 sides utilizing 3-0 Prolene sutures. I irrigated out the port pocket sterile saline solution hemostasis was good. I then closed the port pocket utilizing interrupted 3-0 Vicryl sutures in subcu tissues. This was followed by interrupted 3-0 Vicryl sutures the deep dermal layer. The skin edges were then approximated utilizing a running subcuticular 4 Monocryl suture. The incision was then cleaned. I then accessed the port percutaneously with the Marshall needle. And it aspirated blood easily and was flushed with heparinized saline solution x2. I then sealed incision utilizing skin glue. The patient tolerated the procedure well no complications. All sponges, needles, and instrument counts were correct at the end procedure. EBL was _10__cc. The patient was awakened and taken to recovery in stable and satisfactory condition. Portable chest x-ray reading is pending at the time of dictation to rule out pneumothorax and to dock made proper positioning of the tip of the catheter. Implants 9.6 Jordanian silastic single-lumen catheter attached to titanium Smart Port via right internal jugular vein. Estimated Blood Loss 10 Drains No Packing No Pathology None sent Complications No immediate complications Condition Stable Disposition PACU [facility] Billing Surgery - Charge Forward: Surgery Billing
[2025-01-18 17:34] VITALS: BP 103/74; PULSE 91; RESP 18
[2025-01-18 18:01] VITALS: BP 100/67; PULSE 86; RESP 16
== END 2025-01-18 18:12 | disposition home or self-care (01) ==
PROVIDERS: PCP Physician Assistant; Visit Provider Surgery
PROC: (CPT 36561; principal; 2025-01-18 15:00)
DX: C67.9 Malignant neoplasm of bladder, unspecified (principal); F12.90 Cannabis use, unspecified, uncomplicated; Z87.891 Personal history of nicotine dependence
CPT/HCPCS: 36561; 77001; C1788; J0690; J1644; J2003; J2004; J2250; J2371; J2704; J3010; J7030; J7120

== ENCOUNTER 2025-02-25 10:09 | Outpatient (CLI) | payer MEDICARE, MEDICAID, SELFPAY ==
--- NOTE | ~2025-02-25 | PE_ITS ---
EXAMINATION: PET skull to mid thigh DATE: 02/25/2025 12:28 INDICATION: Malignant neoplasm of the bladder neck TECHNIQUE: Blood glucose level was 93 mg/dL. 11.407 mCi of 18-fluorodeoxyglucose (18-FDG) was adminis tered i.v. Low dose computed tomography (CT) images were acquired from the base of the brain to the p roximal thighs for attenuation correction and anatomic localization. Positron emission tomography (PE T) images were acquired in the same distribution beginning 55 minutes after injection. Images includi ng fused PET/CT images were reconstructed in axial, coronal, and sagittal planes. Automated exposure control technique was employed. The dose-length product was 1067.06mGy-cm. COMPARISON: CT dated 12/20/24 FINDINGS: Head/neck: There is symmetric increased activity in the nares, oral cavity, palatine tonsils, submandibular glan ds,, ocular muscles and to lesser degree posterior cervical paraspinal musculature without CT correla te, likely physiologic. No pathologically enlarged cervical lymphadenopathy or suspicious foci of inc reased FDG uptake in the visualized head or neck. Chest: Right internal jugular central venous port catheter with distal tip at the caudal superior vena cava. Moderate severity upper lung and paraseptal predominant emphysema. There are dependent and periphera l predominant groundglass opacities and irregular septal line thickening most likely related to atele ctasis and/or mild pulmonary edema versus less likely pneumonia or chronic interstitial lung disease. Small bilateral posterior layering pleural effusions. Calcified pulmonary nodules the posterior sulc us of the right lower lobe along with calcified right hilar and mediastinal lymph nodes nodes consist ent with old granulomatous disease. 7 mm noncalcified pulmonary nodule without abnormal FDG activity in the right middle lobe. There is a small focus of increased activity with maximal SUV of 4.8 cm wit hin the posterior small left pleural effusion and the left lower lung zone which without evident lester elate on the CT imaging. There are also few foci of mild increased FDG uptake at the left hilum with maximal SUV values measuring up to 4.9, 4.8 and 4.3 likely related to hilar lymph nodes which are john ble be clearly distinguish from the adjacent hilar vasculature but do not appear significantly enlarg ed. There is also increased uptake with maximal SUV of 4.7 associated with a mildly enlarged inferior right paratracheal lymph node which measures up to 1.9 x 1.4 cm. This is only minimal increase in si ze since chest CT dated 11/10/2023 at which time it measured 1.8 x 1.1 cm. Borderline cardiomegaly. No pericardial effusion. Thoracic aorta is normal in caliber. Again seen is a small hiatal hernia conta ining fat and small amount of ascites. Abdomen/pelvis/proximal thighs: Physiologic renal accumulation and excretion of FDG activity in the kidneys, bladder and along portio ns of ureters. There are bilateral internal ureteral stents with loops formed in the bilateral renal pelvises sees and in the bladder. There is a Myers catheter in the bladder. There is suggestion of so me wall thickening posteriorly in the partially decompressed bladder as seen on the prior CT. Unable to assess whether is abnormal FDG uptake associated with the bladder wall given the high degree of tr eated urinary activity in the bladder which could also be seen extending more distally along the Fole y catheter. Normal degree and heterogenous pattern of increased uptake throughout the liver without r adiologic correlate or dominant FDG avid lesion. The gallbladder, pancreas, spleen and bilateral adre nal glands are normal. Mild to moderate uptake scattered throughout the bowels without radiologic cor relate, also likely physiologic. Normal appendix. Minimal amount of ascites in the deep pelvis. No ot her abnormal foci of increased FDG uptake or pathologically enlarged lymphadenopathy in the abdomen, pelvis or proximal thighs. Musculoskeletal: T8, T11 and L2 compression fractures. Small peripherally sclerotic lesion at the right posterior emile c spine, unchanged since 12/02/2024 and without abnormal FDG uptake. No other suspicious lytic, blasti c or abnormally FDG avid bone lesions. Plate and screw fixation for an old healed fracture of the pro ximal right humerus. IMPRESSION: 1. Suggestion of some persistent wall thickening at the posterior aspect of the latter, assessment of which is limited by decompressed state and lack of intravenous contrast. Assessment for associated a bnormal FDG uptake is also limited by the presence of prominent excreted urine activity in the bladde r. This is consistent with reported bladder cancer. 2. A few mildly FDG avid left hilar lymph nodes and mildly FDG avid and mildly enlarged right paratra cheal lymph node which is only minimally increased in size since 11/10/2023 and favor reactive lymphad enopathy over metastatic disease. 3. Moderate emphysema with peripheral and dependent predominant groundglass opacities and septal line thickening and favor atelectasis and/or mild pulmonary edema over pneumonia or chronic interstitial lung disease. 4. Small bilateral posterior layering pleural effusions with indeterminate small focus of mild increa sed FDG activity projecting over the left pleural effusion. For assessment of this, the lung disease and the left hilar lymphadenopathy would recommend correlation with standard postcontrast chest CT at full inspiration. 5. No a pathologically enlarged lymphadenopathy or FDG avid lesions suspicious for Metastatic disease in the abdomen or pelvis. Reviewed, dictated and finalized at location A. IMPRESSION: 1. Suggestion of some persistent wall thickening at the posterior aspect of the latter, assessment of which is limited by decompressed state and lack of intra venous contrast. Assessment for associated abnormal FDG uptake is also limited by the presence of prominent excreted urine activity in the bladder. This is co nsistent with reported bladder cancer. 2. A few mildly FDG avid left hilar lymph nodes and mildly FDG avid and mildly enlarged right paratracheal lymph node which is only minimally increased in siz e since 11/10/2023 and favor reactive lymphadenopathy over metastatic disease. 3. Moderate emphysema with peripheral and dependent predominant groundglass opa cities and septal line thickening and favor atelectasis and/or mild pulmonary e paty over pneumonia or chronic interstitial lung disease. 4. Small bilateral posterior layering pleural effusions with indeterminate smal l focus of mild increased FDG activity projecting over the left pleural effusio n. For assessment of this, the lung disease and the left hilar lymphadenopathy would recommend correlation with standard postcontrast chest CT at full inspira tion. 5. No a pathologically enlarged lymphadenopathy or FDG avid lesions suspicious for Metastatic disease in the abdomen or pelvis.
--- OUTSIDE RECORDS SUMMARY | 2025-02-25 10:15 | XMS_ITS | Clinical Summary ---
Author Organization [facility] Address [address] [place] [address] Care Team Providers Care Grinder And Honer Operator Automatic Name Role Phone David Felix MD Unavailable Raya Lozoya PA-C Primary Care Provider [phone]- [phone] Allergies No known active allergies Medications INCRUSE ELLIPTA 62.5 MCG/INH AEROSOL POWDER, BREATH ACTIVATEDIndica tions:Pulmonary emphysema (CMS/HCC HHS/HCC) INHALE 1 PUFF BY MOUTH ONCE DAILY 30 each 6 09/04/2018 Active albuterol sulfate HFA (VENTOLIN HFA) 108 (90 Base) MCG/ACT inhalerIndicati ons:Pulmonary emphysema ([facility]/HCC HHS/HCC) Inhale 2 puffs into the lungs every 6 (six) hours as needed for Wheezing. 1 Inhaler 12/08/2018 Active aspirin 81 MG tablet Take 1 tablet (81 mg total) by mouth daily. 11/08/2014 Active vitamin D2, ergocalciferol, 98646 UNITS capsule Take 1 capsule (50,000 Units [...] AEROSOL POWDER, BREATH ACTIVATEDIndica tions:Centrilob ular emphysema ([facility]) Inhale 1 puff into the lungs 2 (two) times a day. 1 each 6 07/02/2019 Active Active Problems Problem Noted Date Diagnosed Date Cigarette nicotine dependence in remission 03/30 KELLI (obstructive sleep apnea) 10/25/2017 Pulmonary nodule 10/25/2017 Pulmonary emphysema ([facility]) 10/25/2017 Environmental and seasonal allergies 07/25/2017 Excessive daytime sleepiness 07/25/2017 GERD (gastroesophageal reflux disease) 7 SOB (shortness of breath) on exertion 07/25/2017 Paraseptal emphysema ([facility]) 7 Aortic atherosclerosis 07/19/2017 Precordial pain 07/19/2017 Syncope 07/19/2017 Former smoker 06/21/2017 Centrilobular emphysema ([facility]) 2016 Heart murmur 06/21/2017 Marijuana use 06/21/2017 [...] - 12/10/2024 5:15 PM CDT Hospital Encounter [facility] [place] [address] Tere Ybarra MD Discharge Disposition: Home or Self Care (Routine Discharge) 12/10/2024 11:25 AM CDT - 12/10/2024 11:29 AM CDT Hospital Encounter [facility] [address] Damian Duarte MD Discharge Disposition: Home or Self Care (Routine Discharge) 12/10/2024 Travel 12/09/2024 Orders Only [facility] [place] [address] Damian Duarte MD 12/09/2024 Hospital Orders Only [facility] [address] Damian Duarte MD from Last 3 Months [...] 12:30 PM CDT Height 185.4 cm (6' 1) 12/10/2024 12:30 PM CDT Body Mass Index [...] this topic Medical Devices Implanted Type Area Quill Machine Tender Device Identifier Shelf Expiration Date Model / Serial / Lot Ureteral Stent-12/11/19 25 Implanted:Qt y: 1 on 12/10/2024 by Damian Duarte MD Stent Left: Ureter Publisha RUPA 12/09/2026 [id number] / / [id number] Procedures Procedure Name Priority Date/Time Associated Diagnosis [...] remission LIPID PANEL Routine 08/07/2017 9:50 AM ORTHOPEDICALLY IMPAIRED TEACHER Chest pain SOB (shortness of breath) CT CHEST WO CON Routine 07/02/2017 10:10 AM ORTHOPEDICALLY IMPAIRED TEACHER Abnormal chest x-ray HEPATITIS A,B,& C Routine 10/08/2014 12: 10 PM ORTHOPEDICALLY IMPAIRED TEACHER from Last 3 Months or Most Recently [...] the bladder.. 3. Left internal ureteral 6 Singaporean 26 cm stent placed in satisfactory position. 4. No immediate procedure complication. Ordered By: TERE YBARRA Interpreted By: Damian Duarte MD, 12/10/2024 3:25 PM Narrative 12/10/2024 3:33 PM CDT [facility] [address] [place], [place] [address] Procedure Nephrostomy tube placement; antegrade nephrostogram; left [...] from the patient, patient's medical power of consumer attorney. The procedure was discussed including rationale, alternatives, [...] supervision of the interventional radiologist. Total intraprocedure ogzr-se-zawa time with the radiologist including sedation time [...] sheath were removed leaving the outer [address]. A stiff Amplatz wire was placed through the sheath which was removed followed by advancement of a 5 Singaporean Yueh, this was advanced over the wire into the bladder without resistance. Dilute contrast was administered confirming bladder axis The stiff Amplatz wire was replaced and the catheter was removed followed by advancement of a 6 Singaporean 26 cm ureteral stent [id number]. The distal pigtail was formed in the bladder and the proximal pigtail in the left renal collecting system appropriately. Contrast and saline was administered showing gradual opacification of a slightly distended bladder. Left renal access was terminated, compression applied and a small sterile dressing placed. The patient remained asymptomatic tolerating the procedure well. No immediate procedure complication. Claims Coordinator: Dr. Duarte Estimated blood loss: None Radiation dose Air Kerma: 39.6 mGy; . Procedure Note Damian Duarte MD - 12/10/2024 [facility] [address] [place], [place] [address] Procedure Nephrostomy tube placement; antegrade nephrostogram; left [...] obtained from thepatient, patient's medical power of consumer attorney. The procedure was discussedincluding rationale, alternatives, benefits [...] under supervision of theinterventional radiologist. Total intraprocedure fvel-za-kkbf time with the radiologist includingsedation time was [...] and sheath wereremoved leaving the outer [address]. A stiff Amplatz wirewas placed through the sheath which was removed followed by advancement ofa 5 Singaporean Yueh, this was advanced over the wire into the bladder withoutresistance. Dilute contrast was administered confirming bladder axis The stiff Amplatz wire was replaced and the catheter was removed followedby advancement of a 6 Singaporean 26 cm ureteral stent [id number]. Thedistal pigtail was formed in the bladder and the proximal pigtail in theleft renal collecting system appropriately. Contrast and saline wasadministered showing gradual opacification of a slightly distendedbladder. Left renal access was terminated, compression applied and a small steriledressing placed. The patient remained asymptomatic tolerating the procedure well. No immediate procedure complication. Claims Coordinator: Dr. Duarte Estimated blood loss: None Radiation dose Air Kerma: 39.6 mGy; . =====IMPRESSION:===== 1. Left percutaneous nephrostomy access site with ultrasound andfluoroscopy guidance. 2. Left antegrade nephrostogram showing hydronephroureter with distal leftureteral obstruction at the bladder.. 3. Left internal ureteral 6 Singaporean 26 cm stent placed in satisfactoryposition. 4. No immediate procedure complication. Ordered By: TERE YBARRA Interpreted By: Damian Duarte MD, 12/10/2024 3:25 PM us Tere Ybarra MD INTERVENTIONAL RADIOLOGY [facility] al Result * PLATELET COUNT, AUTO (12/10/2024 1:00 PM CDT) PLT 228 130 - 400 x10'3/uL 12/10/2024 1:32 PM CDT [facility] MPV 11.3 9.3 - 12.2 FL 12/10/2024 1:32 PM CDT [facility] 12/10/2024 1:00 PM CDT us Damian Duarte MD LABORATORY Final Result [facility] [address] [place] [address], [place] [phone] * PTT, PARTIAL THROMBOPLASTIN TIME (12/10/2024 1:00 PM CDT) PTT 30.6 25.1 - 36.5 SEC 12/10/2024 2:05 PM CDT [facility] 12/10/2024 1:00 PM CDT us Damian Duarte MD LABORATORY Final Result Performing Organization Address City[facility] Co de Phone Number [facility] [address] [place] [address], [place] [phone] * PROTIME/INR, VENOUS (12/10/2024 1:00 PM CDT) PROTIME 12.5 10.2 - 12.9 SEC 12/10/2024 2:05 PM CDT [facility] INR 1.1 12/10/2024 2:05 PM CDT [facility] Comment: Recommended INR Therapeutic Goals: 2.0-3.0 Routine Therapy 2.5-3.5 Mechanical Prosthetic Valves (High Risk) 12/10/2024 1:00 PM CDT us Damian Duarte MD LABORATORY Final Result Performing Organization Address [facility] Co de Phone Number [facility] [address] [place] [address], [place] [phone] * CT LUNG SCREENING (12/22/2021 12:26 PM [...] around 12/22/2022). Thank you for choosing the [facility]'s Lung Screening Program. Referred By: RAYA LOZOYA [...] or around12/22/2022). Thank you for choosing the [facility]'s Lung ScreeningProgram. Referred By: RAYA LOZOYA Interpreted By: Monty You MD, 12/28/2021 7:30 PM us Raya Lozoya PA-C CT Final Resu lt * (ABNORMAL) LIPID PANEL (08/07/2017 9:50 AM ORTHOPEDICALLY IMPAIRED TEACHER) CHOLESTEROL 185 <200 MG/DL 08/07/2017 11:00 AM [facility] TRIGLYCERIDES 66 <150 MG/DL 08/07/2017 11:00 AM [facility] HDL 47 >40.0 MG/DL 08/07/2017 11:00 AM [facility] LDL (CALCULATED) 124.8(H) <100 MG/L 08/07/20 11:00 AM [facility] NON HDL CHOLESTEROL 138(H) <130 MG/DL 08/07/2017 11:00 AM [facility] CHOL/HDL RATIO 3.9 0.0 - 4.5 08/07/2017 11:00 AM [facility] VLDL CALCULATION 13 5 - 55 MG/DL 08/07/2017 11:00 AM [facility] LIPID INTERPRETATION 08/07/2017 11:00 AM [facility] Comment: [facility] CONCENSUS REPORT RECOMMENDATIONS: ADULT CHILD LOW RISK: CHOLESTEROL <200 <170 TRIGLYCERIDE <150 --- HDL >=60 --- LDL <100 <110 BORDERLINE: CHOLESTEROL 200-239 170-199 TRIGLYCERIDE 150-199 --- HDL 40-59 --- LDL 100-159 110-129 HIGH RISK: CHOLESTEROL >=240 >=200 TRIGLYCERIDE >=200 --- HDL <40 --- LDL >=160 >=130 08/07/2017 9:50 AM ORTHOPEDICALLY IMPAIRED TEACHER us Mikel Shepard MD LABORATORY Final Result [facility] [address] [place] [address], * CT CHEST WO CON (07/02/2017 10:10 AM ORTHOPEDICALLY IMPAIRED TEACHER) Anatomical Region Laterality Modality Chest Computed Tomogra phy 07/02/2017 10:2 1 AM ORTHOPEDICALLY IMPAIRED TEACHER Impressions 07/02/2017 10:46 AM ORTHOPEDICALLY IMPAIRED TEACHER =====IMPRESSION:===== 1. Nodularity of the pleura particularly [...] of bowel involvement. Narrative 07/02/2017 10:46 AM ORTHOPEDICALLY IMPAIRED TEACHER EXAMINATION: CT Chest without contrast EXAM DATE/TIME: [...] * HEPATITIS A,B,& C (10/08/2014 12:10 PM ORTHOPEDICALLY IMPAIRED TEACHER) HAV IGM NON-REACTI VE NR [facility] TO EPIC CONVERSION HEPATITIS B SURFACE AG NON-REACTI VE NR [facility] TO EPIC CONVERSION HEP B SURFACE AB NON-REACTI VE [facility] TO EPIC CONVERSION HEP B CORE TOTAL AB NON-REACTI VE NR [facility] TO EPIC CONVERSION HEPATITIS C AB NON-REACTI VE NR [facility] TO EPIC CONVERSION Comment: Result Comment: TESTING PERFORMED AT [facility], A MEMBER OF THE [facility]. 10/08/2014 12:1 0 PM ORTHOPEDICALLY IMPAIRED TEACHER 10/08/2014 12:10 PM ORTHOPEDICALLY IMPAIRED TEACHER Narrative [facility] TO EPIC CONVERSION - 10/11/2014 5:34 PM ORTHOPEDICALLY IMPAIRED TEACHER 13Oct2014 7:23AM by Donovan Saba: Mr Cho, [...] Most Recently Relevant to Health Maintenance Insurance [facility] [address] [id number] Care Teams Grinder And Honer Operator Automatic Relationship Specialty Start Date End Date Raya Lozoya PAMarileeC [address] [place] [address] PCP - General PHYSICIAN COLLAR SEWER 12/10/24 David Felix MD [facility]. [facility] [address] [place], [place] [address] [employer] Manager INTERVENTIONAL CARDIOLOGY 06/17/19
--- OUTSIDE RECORDS SUMMARY | 2025-02-25 10:15 | XMS_ITS | Clinical Summary ---
Author Organization [facility] Address [address] [place] [address] Care Team Providers Care Corporate Travel Agent Name Role Phone Jazmin Abel MD Primary Care Provider +1- [phone] Source Comments [facility],non-owned Affiliates and Associated Physician Practices is amultiple site organization consisting of ambulatory clinics and hospital sitesin [place], [place], [place] and [place]. This disclosure is being madepursuant to the Care Everywhere program and may not contain all information available regarding this patient. 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 Interventions: Insurance MEDICARE MEDICARE [facility] MANAGED MEDICARE ADV SELF PAY NO INSURANCE Member Subscriber Plan / Payer (Ef fective for All Dates) Name:Walter Henley Member ID:Not on file Relation to Subscriber:Not on file Name:WALTER HENLEY Subscriber ID:Not on file (Home) Address: [address] [address] [place] [address] Payer ID:Not on file Group ID:Not on file Type:Self Pay Address: [facility] MANAGED MEDICARE ADV MEDICARE Care Teams Corporate Travel Agent Relationship Specialty Start Date End Date Jazmin Abel MD [address] [place] [address] PCP - General 05/14/19
--- OUTSIDE RECORDS SUMMARY | 2025-02-25 10:15 | XMS_ITS | Data Portability ---
Author Organization [facility] Address [address] [place] [address] Care Team Providers Care Panel Wirer Name Role Phone YEVGENIY LOO Primary Care Provider [phone] Assessment Encounter Date Assessment Date Assessment LastModified by Organization Details LastModified Time 01/08/2024 01/08/2024 Pt will make nurse visit for lab results. [email or web address] Not available 01/08/2024 13:13:21 Plan of Treatment Reminders Order Date Submit Date Provider Last Modified By Organization Details Last Modified Time Details Appointments ANY 15 2024 11:45A M STELLA CABRERA Not available Not available Not available Lab urinalysi s, dipstick 2024 025 VIJAY In-Office Order, Internal Use Only DO Not Attach Compendium DO Not Attach Compendium, Do Not Delete/merge, [id number] 10/06/2024 10:45:54 urinalysi s, complete 2024 025 [facility], [address], [place], [address], 10/09/2024 08:29:50 CMP, serum or plasma 2023 024 [facility], [address], [place], [address], 03/04/2024 08:29:45 TSH + free T4, serum 2023 024 [facility], [address], [place], [address], 03/04/2024 08:29:44 HbA1c (hemoglob in A1c), blood 2023 024 [facility], [address], [place], [address], 03/04/2024 08:29:45 lipid panel, serum 2023 024 [facility], [address], [place], [address], 03/04/2024 08:42:52 CBC w/ auto diff 2023 024 [facility], [address], [place], [address], 03/04/2024 08:29:46 lipid panel, serum 2023 024 [facility], [address], [place], [address], 03/04/2024 08:29:44 vitamin D, 25-hydrox y, total, serum 2023 024 [facility], [address], [place], [address], 03/04/2024 08:29:46 Referral dermatolo gist referral 2024 025 GABRIELLA Murphy MD ([facility], Dermatology), [address] [place], [address], 02/17/2025 10:18:54 Procedures None recorded. Surgeries None recorded. Imaging None recorded. Medication Orders fluticaso ne propionat e 115 mcg-salme terol 21 mcg/actua tion HFA inhaler 2024 025 [facility], [address] [facility], [place], [address], 10/06/2024 10:03:14 tamsulosi n 0.4 mg capsule 2024 025 [facility], [address] [place], [address], 10/06/2024 09:51:10 albuterol sulfate HFA 90 mcg/actua tion aerosol inhaler 2023 024 [facility], [facility] [place], [address], 01/08/2024 09:22:35 atorvasta tin 40 mg tablet 2023 024 [facility], [facility] [place], [address], 02/03/2025 17:46:43 Patient TargetsNo targets recorded. Patient InstructionsNo instructions recorded. Reason for Referral [employer] Referral for Martha barros in skin lesion Referring Physician: Raya Lozoya, Family Medicine, Encounter Date: 02/03/2025 Results Created Date Observation Date Name Description Value Unit Range Abnormal Flag Note LastModifiedBy Organization Detail LastModifiedTime 03/03/2003/04/2024 TSH+F REE T4 TSH 1.710 uIU/m L 0.450- 4.500 Not Available [facility] ([facility]) [address] [place], [address], 03/04/2024 08:29:44 03/03/2003/04/2024 TSH+F REE T4 T4,free(dire ct) 1.19 NG/dL 0.82-1 .77 Not Available [facility] ([facility]) [address] [place], [address], 03/04/2024 08:29:44 03/03/2003/04/2024 LIPID PANEL WITH LDL/H DL RATIO cholesterol, total 164 mg/dL 100-19 9 Not Available [facility] ([facility]) [address] [place], [address], 03/04/2024 08:29:44 03/03/20 24 03/04/2024 LIPID PANEL WITH LDL/H DL RATIO triglyceride s 64 mg/dL 0-149 Not Available [facility] ([facility]) [address] [place], [address], 03/04/2024 08:29:44 03/03/20 24 03/04/2024 LIPID PANEL WITH LDL/H DL RATIO HDL cholesterol 38 mg/dL >39 below low normal Not Available [facility] ([facility]) [address] [place], [address], 03/04/2024 08:29:44 03/03/2003/04/2024 LIPID PANEL WITH LDL/H DL RATIO VLDL cholesterol carla 13 mg/dL 5-40 Not Available [facility] ([facility]) [address] [place], [address], 03/04/2024 08:29:44 03/03/20 24 03/04/2024 LIPID PANEL WITH LDL/H DL RATIO LDL chol calc ([facility]) 113 mg/dL 0-99 above high normal Not Available [facility] ([facility]) [address] [place], [address], 03/04/2024 08:29:44 03/03/20 24 03/04/2024 LIPID PANEL WITH LDL/H DL RATIO LDL/HDL ratio 3.0 ratio 0.0-3. 6 LDL/H DL Ratio Men Women 1/2 Avg.R isk 1.0 1.5 Avg.R isk 3.6 3.2 2X Avg.R isk 6.2 5.0 3X Avg.R isk 8.0 6.1 Not Available [facility] ([facility]) [address] [place], [address], 03/04/2024 08:29:44 03/03/20 24 03/04/2024 COMP. METAB OLIC PANEL (14) glucose 91 mg/dL 70-99 Not Available [facility] ([facility]) [address], [place], [address], 03/04/2024 08:29:45 03/03/20 24 03/04/2024 COMP. METAB OLIC PANEL (14) BUN 18 mg/dL 8-27 Not Available [facility] ([facility]) [address] [facility] [place], [address], 03/04/2024 08:29:45 03/03/20 24 03/04/2024 COMP. METAB OLIC PANEL (14) creatinine 1.26 mg/dL 0.76-1 .27 Not Available [facility] ([facility]) [address] [facility] [place], [address], 03/04/2024 08:29:45 03/03/20 24 03/04/2024 COMP. METAB OLIC PANEL (14) eGFR 63 mL/mi n/1.7 3 >59 Not Available [facility] ([facility]) [address] [facility], [place], [address], 03/04/2024 08:29:45 03/03/20 24 03/04/2024 COMP. METAB OLIC PANEL (14) BUN/creatini ne ratio 14 10-24 Not Available [facility] ([facility]) [address] [facility] [place], [address], 03/04/2024 08:29:45 03/03/20 24 03/04/2024 COMP. METAB OLIC PANEL (14) sodium 137 mmol/ L 134-14 4 Not Available [facility] ([facility]) [address] [facility] [place], [address], 03/04/2024 08:29:45 03/03/20 24 03/04/2024 COMP. METAB OLIC PANEL (14) potassium 4.6 mmol/ L 3.5-5. 2 Not Available [facility] ([facility]) [address] [facility] [place], [address], 03/04/2024 08:29:45 03/03/20 24 03/04/2024 COMP. METAB OLIC PANEL (14) chloride 105 mmol/ L 96-106 Not Available [facility] ([facility]) [address] [place], [address], 03/04/2024 08:29:45 03/03/20 24 03/04/2024 COMP. METAB OLIC PANEL (14) carbon dioxide, total 18 mmol/ L 20-29 below low normal Not Available [facility] ([facility]) [address], [place], [address], 03/04/2024 08:29:45 03/03/2003/04/2024 COMP. METAB OLIC PANEL (14) calcium 8.9 mg/dL 8.6-10 .2 Not Available [facility] ([facility]) [address] [place], [address], 03/04/2024 08:29:45 03/03/20 24 03/04/2024 COMP. METAB OLIC PANEL (14) protein, total 6.8 g/dL 6.0-8. 5 Not Available [facility] ([facility]) [address] [facility] [place], [address], 03/04/2024 08:29:45 03/03/2003/04/2024 COMP. METAB OLIC PANEL (14) albumin 3.6 g/dL 3.9-4. 9 below low normal Not Available [facility] ([facility]) [address] [place], [address], 03/04/2024 08:29:45 03/03/2003/04/2024 COMP. METAB OLIC PANEL (14) globulin, total 3.2 g/dL 1.5-4. 5 Not Available [facility] ([facility]) [address] [facility] [place], [address], 03/04/2024 08:29:45 03/03/20 03/04/2024 COMP. METAB OLIC PANEL (14) bilirubin, total 0.5 mg/dL 0.0-1. 2 Not Available [facility] ([facility]) [address] [place], [address], 03/04/2024 08:29:45 03/03/20 24 03/04/2024 COMP. METAB OLIC PANEL (14) alkaline phosphatase 105 IU/L 44-121 Not Available [facility] ([facility]) [address] [facility], [place], [address], 03/04/2024 08:29:45 03/03/20 24 03/04/2024 COMP. METAB OLIC PANEL (14) AST (SGOT) 16 IU/L 0-40 Not Available [facility] ([facility]) [address] [place], [address], 03/04/2024 08:29:45 03/03/20 24 03/04/2024 COMP. METAB OLIC PANEL (14) ALT (SGPT) 12 IU/L 0-44 Not Available [facility] ([facility]) [address] [facility], [place], [address], 03/04/2024 08:29:45 03/03/2003/04/2024 HEMOG LOBIN A1C hemoglobin A1C 5.6 % 4.8-5. 6 Predi abete s: 5.7 - 6.4 Diabe lina: >6.4 Glyce lyssa contr ol for adult s with diabe lina: <7.0 Not Available [facility] ([facility]) [address] [place], [address], 03/04/2024 08:29:45 03/03/2003/04/2024 CBC WITH DIFFE RENTI AL/PL ATELE T WBC 7.1 x10e3 /uL 3.4-10 .8 Not Available [facility] ([facility]) [address] [facility], [place], [address], 03/04/2024 08:29:46 03/03/20 24 03/04/2024 CBC WITH DIFFE RENTI AL/PL ATELE T RBC 4.40 x10e6 /uL 4.14-5 .80 Not Available [facility] ([facility]) [address] [place], [address], 03/04/2024 08:29:46 03/03/2003/04/2024 CBC WITH DIFFE RENTI AL/PL ATELE T hemoglobin 15.2 g/dL 13.0-1 7.7 Not Available [facility] ([facility]) [address] [place], [address], 03/04/2024 08:29:46 03/03/2003/04/2024 CBC WITH DIFFE RENTI AL/PL ATELE T hematocrit 45.0 % 37.5-5 1.0 Not Available [facility] ([facility]) [address] [place], [address], 03/04/2024 08:29:46 03/03/2003/04/2024 CBC WITH DIFFE RENTI AL/PL ATELE T MCV 102 fL 79-97 above high normal Not Available [facility] ([facility]) [address] [place], [address], 03/04/2024 08:29:46 03/03/2003/04/2024 CBC WITH DIFFE RENTI AL/PL ATELE T MCH 34.5 pg 26.6-3 3.0 above high normal Not Available [facility] ([facility]) [address] [place], [address], 03/04/2024 08:29:46 03/03/2003/04/2024 CBC WITH DIFFE RENTI AL/PL ATELE T MCHC 33.8 g/dL 31.5-3 5.7 Not Available [facility] ([facility]) [address] [place], [address], 03/04/2024 08:29:46 03/03/2003/04/2024 CBC WITH DIFFE RENTI AL/PL ATELE T RDW 12.2 % 11.6-1 5.4 Not Available [facility] ([facility]) [address], [place], [address], 03/04/2024 08:29:46 03/03/2003/04/2024 CBC WITH DIFFE RENTI AL/PL ATELE T platelets 193 x10e3 /uL 150-45 0 Not Available [facility] ([facility]) [address] [facility], [place], [address], 03/04/2024 08:29:46 03/03/2003/04/2024 CBC WITH DIFFE RENTI AL/PL ATELE T neutrophils 65 % notest ab. Not Available [facility] ([facility]) [address] [facility], [place], [address], 03/04/2024 08:29:46 03/03/2003/04/2024 CBC WITH DIFFE RENTI AL/PL ATELE T lymphs 21 % notest ab. Not Available [facility] ([facility]) [address] [facility], [place], [address], 03/04/2024 08:29:46 03/03/2003/04/2024 CBC WITH DIFFE RENTI AL/PL ATELE T monocytes 11 % notest ab. Not Available [facility] ([facility]) [address] [facility], [place], [address], 03/04/2024 08:29:46 03/03/2003/04/2024 CBC WITH DIFFE RENTI AL/PL ATELE T eos 3 % notest ab. Not Available [facility] ([facility]) [address] [facility], [place], [address], 03/04/2024 08:29:46 03/03/2003/04/2024 CBC WITH DIFFE RENTI AL/PL ATELE T basos 0 % notest ab. Not Available [facility] ([facility]) [address] [facility], [place], [address], 03/04/2024 08:29:46 03/03/20 24 03/04/2024 CBC WITH DIFFE RENTI AL/PL ATELE T neutrophils (absolute) 4.5 x10e3 /uL 1.4-7. 0 Not Available [facility] ([facility]) [address] [facility], [place], [address], 03/04/2024 08:29:46 03/03/2003/04/2024 CBC WITH DIFFE RENTI AL/PL ATELE T lymphs (absolute) 1.5 x10e3 /uL 0.7-3. 1 Not Available [facility] ([facility]) [address] [facility], [place], [address], 03/04/2024 08:29:46 03/03/20 24 03/04/2024 CBC WITH DIFFE RENTI AL/PL ATELE T monocytes(ab solute) 0.8 x10e3 /uL 0.1-0. 9 Not Available [facility] ([facility]) [address] [facility], [place], [address], 03/04/2024 08:29:46 03/03/20 24 03/04/2024 CBC WITH DIFFE RENTI AL/PL ATELE T eos (absolute) 0.2 x10e3 /uL 0.0-0. 4 Not Available [facility] ([facility]) [address] [place], [address], 03/04/2024 08:29:46 03/03/20 24 03/04/2024 CBC WITH DIFFE RENTI AL/PL ATELE T baso (absolute) 0.0 x10e3 /uL 0.0-0. 2 Not Available [facility] ([facility]) [address] [place], [address], 03/04/2024 08:29:46 03/03/20 24 03/04/2024 CBC WITH DIFFE RENTI AL/PL ATELE T immature granulocytes 0 % notest ab. Not Available [facility] ([facility]) [address] [facility], [place], [address], 03/04/2024 08:29:46 03/03/20 24 03/04/2024 CBC WITH DIFFE RENTI AL/PL ATELE T immature grans (abs) 0.0 x10e3 /uL 0.0-0. 1 Not Available [facility] ([facility]) [address] [facility], [place], [address], 03/04/2024 08:29:46 03/03/20 24 03/04/2024 VITAM IN [...] Medic ine). 2009. Dieta ry refer ence intnilton es for calci um and D. Jess tompkins [place]: The Natio n[facility] . 2. Dilshad fountain [place], Luis bauman [place], Verna off-F errar i CASTANEDA, et al. Evalu ation , treat ment, and preve ntion of vitam in D defic iency : an Endoc rine Socie ty clini carla pract ice guide line. JCEM. 2010; 96(7) :1911 -30. Not Available [facility] ([facility]) [address] [facility], [place], [address], 03/04/2024 08:29:46 10/06/19 25 10/09/2024 MICRO SCOPI C EXAMI NATIO N WBC >30 /hpf 0-5 abnormal Not Available [facility] ([facility]) [address] [facility], [place], [address], 10/09/2024 08:29:50 10/06/19 25 10/09/2024 MICRO SCOPI C EXAMI NATIO N RBC None seen /hpf 0-2 Not Available [facility] ([facility]) [address] [facility], [place], [address], 10/09/2024 08:29:50 10/06/1910/09/2024 MICRO SCOPI C EXAMI NATIO N epithelial cells (non renal) 0-10 /hpf 0-10 Not Available [facility] ([facility]) [address] [facility], [place], [address], 10/09/2024 08:29:50 10/06/19 25 10/09/2024 MICRO SCOPI C EXAMI NATIO N casts None seen /lpf nonese en Not Available [facility] ([facility]) [address] [facility], [place], [address], 10/09/2024 08:29:50 10/06/19 25 10/09/2024 MICRO SCOPI C EXAMI NATIO N mucus threads Presen t notest ab. Not Available [facility] ([facility]) [address] [facility], [place], [address], 10/09/2024 08:29:50 10/06/1910/09/2024 MICRO SCOPI C EXAMI NATIO N bacteria Many nonese en/few abnormal Not Available [facility] ([facility]) [address] [place], [address], 10/09/2024 08:29:50 10/06/19 25 10/09/2024 URINA LYSIS , COMPL ETE specific gravity 1.014 1.005- 1.030 Resul ts from sub-o ptima l speci men perfo rmed at the [facility]. Not Available [facility] ([facility]) [address] [place], [address], 10/09/2024 08:29:50 10/06/19 25 10/09/2024 URINA LYSIS , COMPL ETE pH 5.5 5.0-7. 5 Not Available [facility] ([facility]) [address] [place], [address], 10/09/2024 08:29:50 10/06/19 25 10/09/2024 URINA LYSIS , COMPL ETE urine-color YELLOW yellow Not Available [facility] ([facility]) [address] [place], [address], 10/09/2024 08:29:50 10/06/19 25 10/09/2024 URINA LYSIS , COMPL ETE appearance CLEAR clear Not Available [facility] ([facility]) [address] [place], [address], 10/09/2024 08:29:50 10/06/19 25 10/09/2024 URINA LYSIS , COMPL ETE WBC esterase 2+ negati ve abnormal Not Available [facility] ([facility]) [address] [place], [address], 10/09/2024 08:29:50 10/06/19 25 10/09/2024 URINA LYSIS , COMPL ETE protein NEGATI VE negati ve/tra ce Not Available [facility] ([facility]) [address] [place], [address], 10/09/2024 08:29:50 10/06/19 25 10/09/2024 URINA LYSIS , COMPL ETE glucose NEGATI VE negati ve Not Available [facility] ([facility]) [address] [place], [address], 10/09/2024 08:29:50 10/06/19 25 10/09/2024 URINA LYSIS , COMPL ETE ketones NEGATI VE negati ve Not Available [facility] ([facility]) [address] [place], [address], 10/09/2024 08:29:50 10/06/19 25 10/09/2024 URINA LYSIS , COMPL ETE occult blood NEGATI VE negati ve Not Available [facility] ([facility]) [address] [place], [address], 10/09/2024 08:29:50 10/06/19 25 10/09/2024 URINA LYSIS , COMPL ETE bilirubin NEGATI VE negati ve Not Available [facility] ([facility]) [address] [place], [address], 10/09/2024 08:29:50 10/06/19 25 10/09/2024 URINA LYSIS , COMPL ETE urobilinogen ,semi-qn 0.2 mg/dL 0.2-1. 0 Not Available [facility] ([facility]) [address] [place], [address], 10/09/2024 08:29:50 10/06/19 25 10/09/2024 URINA LYSIS , COMPL ETE nitrite, urine NEGATI VE negati ve Not Available [facility] ([facility]) [address] [place], [address], 10/09/2024 08:29:50 10/06/19 25 10/09/2024 URINA LYSIS , COMPL ETE microscopic examination SEE BELOW: Micro scopi c was indic ated and was perfo rmed. Not Available [facility] ([facility]) [address] [place], [address], 10/09/2024 08:29:50 10/06/19 25 10/11/2024 URINE CULTU RE, ROUTI NE urine culture, routine Final report Not Available [facility] ([facility]) [address] [facility], [place], [address], 10/11/2024 15:08:49 10/06/1910/11/2024 URINE CULTU RE, ROUTI NE result 1 Commen t Mixed uroge nital jose 25,00 0-50, 000 colon y formi ng units per mL Not Available [facility] ([facility]) [address] [facility], [place], [address], 10/11/2024 15:08:49 10/06/19 25 10/06/2024 urina lysis [...] 10/06/1910/06/2024 urina lysis , dipst ick Specific [place] 1.020 Not Available In-Off ice Order Internal Use Only DO Not Attach Compendium DO Not Attach Compendium, Do Not Delete/merge, [id number] 10/06/2024 09:56:07 10/06/1910/06/2024 urina lysis , dipst ick Ketone Negati ve Not Available In-Office Order Internal Use Only DO Not Attach Compendium DO Not Attach Compendium, Do Not Delete/merge, [facility] 10/06/2024 09:56:07 10/06/1910/06/2024 urina lysis , dipst ick Bilirubin Negati ve Not Available In-Office Order Internal Use Only DO Not Attach Compendium DO Not Attach Compendium, Do Not Delete/merge, [facility] 10/06/2024 09:56:07 10/06/1910/06/2024 urina lysis , dipst ick Glucose Negati ve Not Available In-Office Order Internal Use Only DO Not Attach Compendium DO Not Attach Compendium, Do Not Delete/merge, 10/06/2024 09:56:07 10/06/1910/06/2024 urina lysis , dipst ick Appearance Clear Not Available In-Offi ce Order Internal Use Only DO Not Attach Compendium DO Not Attach Compendium, Do Not Delete/merge, [facility] 10/06/2024 09:56:07 10/06/1910/06/2024 urina lysis , dipst ick Color Pale Yellow Not Available In-Office Order Internal Use Only DO Not Attach Compendium DO Not Attach Compendium, Do Not Delete/merge, 10/06/2024 09:56:07 12/11/1912/10/2024 Plate lets [#/vo lume] in Blood platelets [#/volume] in blood 228 text: 130 - 400 x10'3/ uL PLT 228 130 - 400 x10'3 /uL 12/10 1:32 PM CDT [facility] Not Available Not Available 12/11/2024 10:19:49 12/11/19 25 12/10/2024 Plate lets [#/vo lume] in Blood platelet [entitic mean volume] in blood 11.3 text: 9.3 - 12.2 fL MPV 11.3 9.3 - 12.2 FL 12/10 1:32 PM CDT [facility] Not Available Not Available 12/11/2024 10:19:49 12/11/19 25 12/10/2024 aPTT in Plate let poor plasm a by Coagu latio n assay APTT in platelet poor plasma by coagulation assay 30.6 text: 25.1 - 36.5 sec PTT 30.6 25.1 - 36.5 SEC 12/10 2:05 PM CDT [facility] Not Available Not Available 12/11/2024 10:19:49 12/11/19 25 12/10/2024 Proth rombi n time (PT) prothrombin time (PT) 12.5 text: 10.2 - 12.9 sec PROTI ME 12.5 10.2 - 12.9 SEC 12/10 2:05 PM CDT [facility] Not Available Not Available 12/11/2024 10:19:49 12/11/19 25 12/10/2024 Proth rombi n time (PT) INR in platelet poor plasma by coagulation assay 1.1 INR 1.1 12/10 2:05 PM CDT [facility] Not Available Not Available 12/11/2024 10:19:49 12/04/19 25 12/02/2024 CT, abdom en + pelvi s, w/o contr ast No observ ation record ed. [facility] [address], [place], [address], 12/03/2024 10:11:52 12/04/19 25 12/03/2024 XR, urogr am, retro grade No observ ation record ed. [address], [place], [address], 12/04/2024 08:57:18 12/05/19 25 12/03/2024 XR, chest , 2 view No observ ation record ed. [address], [place], [address], 12/04/2024 12:36:09 12/05/1912/04/2024 lab* No observ ation record ed. [email or web address], [place], [address], 12/08/2024 16:24:59 12/08/19 25 12/07/2024 lab* No observ ation record ed. [email or web address], [place], [address], 12/08/2024 16:24:52 12/12/19 25 12/02/2024 trans -thor acic echoc ardio gram (TTE) (PROC ) No observ ation record ed. BARCODE Not Available 2024 15:08:48 01/19/20 25 01/18/2025 XR, chest , 2 view No observ ation record ed. [address], [place], [address], 01/22/2025 09:09:10 01/20/2001/18/2025 lab* No observ ation record ed. [email or web address], [place], [address], 01/22/2025 09:09:22 Result Notes None recorded. Problems Name Problem SNOMED Code Status Onset Date Resolution Date Notes Provider Name and Address Organization Details Recorded Time Pulmonary emphysema 42743096 Active 2021 STELLA CABRERA Attn: Onofre singletary,[address] [facility], [place], [address], [facility] 05/04/202 3 09:39:54 Chronic atrial fibrillation 626224505 Active 2021 STELLA CABRERA Attn: Onofre singletary[address] [facility], [place], [address], [place] [facility] 3 09:39:51 Osteoporosis 25327358 Active 2021 STELLA CABRERA Attn: Onofre singletary,[address] 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, [place], [address], [place] [facility] 3 11:26:02 Screening for malignant neoplasm of colon Active 2022 report in chart, due for repeat 2025 STELLA CABRERA Attn: Onofre singletary,[address] [facility], [place], [address], [place] [facility] 3 11:02:28 Hyperlipidemi a [id number] Active 2023 STELLA CABRERA Attn: Onofre singletary,[address] 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, [place], [address], [place] [facility] 5 10:59:21 Notes:Some problems listed i n Document: #[id number] could not be added to this patient's chart. Please review this document and add these problems to the patient's chart manually as needed. Problem Notes None recorded. Medical Equipment None Reported. Allergies No known drug allergies Medications Name Sig Start Date Stop Date Status Note LastModified by Organization Details LastModified Time atorvastati n 40 mg tablet Take 1 tablet every day by oral route at dinner for 90 days. active Not Available Not Available No t Available atorvastati n 80 mg tablet Take 1 tablet every day by oral route at bedtime for 90 days, for high cholester ol. 02/03 completed Not Available Not Available Not Available tizanidine 2 mg tablet TAKE 1 TABLET BY MOUTH EVERY 6 HOURS NEEDED FOR 14 DAYS FOR MUSCLE PAIN 02/03 completed Not Available Not Available Not Available aspirin 325 mg tablet Take 1 tablet every day by oral route in the morning for 30 days. 2022 active OTC Not Available Not Available Not Avai lable metoprolol succinate ER 50 mg tablet,exte nded release 24 hr TAKE 1 TABLET BY MOUTH TWICE DAILY active Not Available Not Available No [...] MOUTH EVERY 8 HOURS FOR 7 DAYS 02/03 completed Not Available Not Available Not Available [...] 1 TABLET BY MOUTH EVERY 12 HOURS 02/03 completed Not Available Not Available Not Available [...] MOUTH EVERY 12 HOURS FOR 3 DAYS 02/03 completed Not Available Not Available Not Available neomycin 3.5 mg/g-polymy juan B 10,000 unit/g-dexa meth 0.1 % eye oint APPLY 1 2 INCH RIBBON INTO INSIDE OF LOWER EYELIDS IN BOTH EYES AT BEDTIME FOR 2 WEEKS 11/28 completed Not Available Not Available Not Available nitrofurant oin monohydrate /macrocryst als 100 mg capsule TAKE 1 CAPSULE BY MOUTH EVERY 12 HOURS WITH MEALS FOR 5 DAYS 02/03 completed Not Available Not Available Not Available Advair HFA 115 mcg-21 mcg/actuati on [...] Available Not Available Vitals Date Recorded Systolic And Diastolic Provider Name and Address Organization Details Last Updated DateTime 10/06/2024 110/70 mm[Hg] STELLA CABRERA Attn: Accounting,[address] [place], [address], [facility] 10/06/2024 11:57:36 Date Recorded Body height Body mass index (BMI) Body weight Oxygen saturation Oxygen saturation in Arterial blood by Pulse oximetry Heart rate Respiratory rate Systolic And Diastolic Provider Name and Address Organization Details Last Updated DateTime 5 185.42 cm 26.6 kg/m2 49873.4 7 g 97 % 97 % 68 /min 18 /min 140/80 mm[Hg] Diana Gottlieb MA [facility] 5 09:31:59 Date Recorded Body height Body mass index (BMI) Body weight Oxygen saturation Oxygen saturation in Arterial blood by Pulse oximetry Heart rate Respiratory rate Systolic And Diastolic Provider Name and Address Organization Details Last Updated DateTime 4 185.42 cm 27.1 kg/m2 50172.8 4 g 97 % 97 % 75 /min 18 /min 104/68 mm[Hg] Diane Mcclain MA [facility] 4 09:15:27 Date Recorded Body height Body mass index (BMI) Body weight Oxygen saturation Oxygen saturation in Arterial blood by Pulse oximetry Heart rate Respiratory rate Systolic And Diastolic Provider Name and Address Organization Details Last Updated DateTime 5 185.42 cm 24.7 kg/m2 74860.5 7 g 98 % 98 % 90 /min 16 /min 130/76 mm[Hg] Diana Gottleib MA [facility] 5 17:25:16 Social History Question Answer Notes LastModified by Organizat ion Details LastModified Time Tobacco Smoking Status Former Smoker Grisel Arenas MA [facility], [facility] 05/22/2018 10:57:33 Do You Have An Advance [...] Date Of Your Most Recent Tobacco Screening? 02/03/2025 Information not available 02/03/2025 What Is Your Relationship Status? Information not [...] Has Tobacco Cessation Counseling Been Provided? Yes [email or web address] Information not available 02/07/2023 On What Date Was Tobacco Cessation Counseling Provided? 02/03/2025 Information not available 02/03/2025 How Many Years Have You Smoked Tobacco? 45 Quit 2019 [email or web address] Information not available 11/28/2021 Sex: Male [...] anxious, or unable to sleep at night)? [id number] Information not available 12/29/2020 Family History Nothing Reported. Medical History Condition Response Coronary Artery Disease N Other N High Blood Pressure N Atrial Fibrillation Y Kidney or Bladder Problems N Thyroid Problems N GI Problems N Depression N COPD Y Blood Clots N Skin Problems Y Anemia N Heart Attack ([place]) N Anxiety Disorder Y Diabetes N Muscle, Joint, or Bone Problems Y Seizures/Epilepsy N Acid Reflux (GERD) Y Cancer N Stroke N Asthma N Allergies Y ADHD N High Cholesterol N Hepatitis N Liver Disease N Headaches Y Heart Failure Y Osteoporosis Y Immunizations Vaccine Type Date Status Note Provider Nam e and Address Organization Details Recorded Time Influenza, split virus, quadrivalent, PF 04/12/2016 completed Not Available [facility] 5 16:58:32 COVID-19, mRNA, LNP-S, PF, 30 mcg/0.3 mL dose 06/14/2021 completed Not Available [facility] 5 16:58:32 Influenza, recombinant, quadrivalent, PF 07/05/2021 completed Not Available [facility] 5 16:58:32 COVID-19, mRNA, LNP-S, PF, 30 mcg/0.3 mL dose 07/05/2021 completed Not Available [facility] 5 16:58:32 Influenza, split virus, quadrivalent, PF 05/07/2018 completed Not Available [facility] 0 02:35:59 Past Encounters Encounter ID Performer Location Encounter Start Date Encounter Closed Date Diagnosis/Indication Diagnosis SNOMED-CT Code Diagnosis ICD10 Code Diagnosis Note [id number] Jazmin Abel MD [facility] [address] [place] [address] 04/22/2018 11:02:50 04/22/2018 13:23:37 Moderate persistent asthma 012325268 J45.40 continue incruse ellipta and ventolin Osteoporosis 11979318 M8 1.0 poor healing after fracture of the right shoulder Pulmonary emphysema 8743 3001 J43.9 Atrial fibrillation 4943 6004 I48.91 had heart cath; no blockage of arteries; get occasional pain and palpitatio ns; takes aspirin. Arthritis 2666452 M19.90 takes baclofen for muscle spasms History of tobacco use 1165493260 103 Z87.891 discussed screening for early lung cancer. Pain of mu ltiple joints 23187064 M25.50 Standard ed adult depression screening tool completed 1455241666 55821 Z13.89 patient has mild depression . Body mass index 25-29 - overweight 210350417 Z68.25 discussed low fat, low carb diet, and encouraged exercise. It should be noted that patient has lost 2 inches of height due to his osteoporos is, so his actual BMI would be in the normal range if he had not had problems with osteoporos is. [id number] Jazmin Abel MD [facility] [address] [place] [address] 05/06/2018 14:40:41 05/06/2018 16:52:20 Atrial fibrillation 03140580 I48.91 had heart cath; no blockage of arteries; get occasional pain and palpitatio ns; takes aspirin. Osteoporosis 88044507 M8 1.0 poor healing after fracture of the right shoulder Active or passive immunization 651902854 Z23 risks and benefits of immunizati ons reviewed. History of disorder of vision 5756601589 63312 Z86.69 may have retinal detachment or ocular migraines. [id number] Jazmin Abel MD [facility] [address] [place] [address] 05/22/2018 10:36:31 05/27/2018 14:48:08 Persistent insomnia 178447680 G47.09 uses CPAP Obstructiv e sleep apnea of adult 4877790978 103 G47.33 has a machine, needs a good nasal mask--I would recommend [facility] nasal mask, extra large due to large nose. [id number] Jazmin Abel MD [facility] [address] [place] [address] 06/24/2018 13:43:02 07/02/2018 16:09:29 Bilateral carpal tunnel syndrome 8773099254 2322157 G56.03 numb and painful along ulnar nerve distributi on; weakness worse with driving. Unsteady when walking 22 434261 R26.89 likely to fall and become injured. Generalize d osteoarthritis 984461092 M15.9 hurts to sit for a prolonged period of time, trouble going up or down stairs, gets back spasms with prolonged standing. Osteoporos is makes more likely to have a fracture if he falls but he is not steady while walking. Presbyopia 91121376 H52. 4 diplopia, trouble like horizontal lines flipping across vision. [id number] Rashad Blanco MD [facility] [address] [address] 07/09/2018 11:05:05 07/11/2018 15:08:29 Chronic blepharitis 77584036 H01.009 Twitching eye 370408384 H55.89 [id number] Jazmin Abel MD [facility] [address] [place] [address] 04/03/2019 11:36:01 04/06/2019 09:49:19 Angina pectoris 899257814 I20.9 Pain in left knee 566771 2951 34887 M25.562 Screening for malignant neoplasm of colon 570700495 Z12.11 Pain of bi lateral hip joints 2362448097 5195443 M25.551 M25.552 Pain of ri ght shoulder joint 6622481332 6764825 M25.511 Standardiz ed adult depression screening tool completed 6624517868 70827 Z13.89 patient has mild depression . Will be monitored. Denies suicidal or homicidal ideation, enjoys being with friends, sleeping and eating normally. [id number] Jazmin Abel MD [facility] [address] [facility] [place] [address] 06/11/2019 16:52:08 06/15/2019 10:03:16 Coronary atherosclerosis 614730954 I25.119 intermitte nt chest pain, and calcium deposits in coronary arteries. Patient has prescripti on for NTG. Lumbago with sciatica 20 9840164 M54.40 Depression screening 171 463142 Z13.31 Mild depression ; will monitor and consider adding an SSRI. Chronic ob structive pulmonary disease 60427043 J44.9 Patient uses Incruse ellipta to prevent bronchospa sm, and albuterol inhaler as needed for wheezing. [id number] Jazmin Abel MD [facility] [address] [place] [address] 07/23/2019 15:51:39 07/30/2019 03:47:29 [id number] Jazmin Abel MD [facility] [address] [place] [address] 08/27/2019 13:43:29 09/01/2019 00:09:42 [id number] Jazmin Abel MD [facility] [address] [place] [address] 12/29/2020 10:04:23 12/29/2020 17:00:49 Change in skin lesion 455534844 L98.9 non healing lesion in left side of neck under watson for 2.5 years. Vitamin D deficiency 347 68011 E55.9 Macrocytos is - no anemia 839208210 D75.89 Osteoporosis 24153924 M8 1.0 poor healing after fracture of the right shoulder Angina pectoris 92798900 0 I20.9 Pain in left arm 9969898 00 M79.602 Moderate p ersistent asthma 372935093 J45.40 continue incruse ellipta and ventolin Depression screening 171 956400 Z13.31 mild to minimal depression [id number] Petey melgar MD [facility] [address] [place] [address] 11/28/2021 13:39:49 11/29/2021 10:49:48 Pulmonary emphysema 32305912 J43.[address] scan 2019quit smoking 2019SOB with walking up inclineno SOB at restcontro lled on on ventolin and advairPEx- decreased breath sounds due to emphysemad ue for repeat low dose CT scan Osteoporosis 65376487 M8 1.0 DEXA 2018 showed osteoporos haylee alendronat edue for repeatre-c heck Vit D level Chronic at rial fibrillation 754534155 I48.20 on ASA 81 mglast saw Cardiology 2019, ddx with CAD, cardiomyop athy, and chronic A fibdue for f/u cardio Screening for malignant neoplasm of colon 044226135 Z12.11 has never had colon cancer screenno bowel changes, diarrhea, or constipati onno blood in stoolorder ed cologuard Adult heal th examination 711777321 Z00.00 routine labs Dizziness 357088420 R42 intermitte nt x1 molasts a couple seconds and then goes awayoccurs with position changessit ting to standing, laying flat on bedno concerning sxdiscusse d cardio/hailee ro/orthost atic/BPPVe ncouraged increasing fluid intakef/u if sx do not improve Depression screening 171 277988 Z13.31 PHQ 4 [id number] Petey melgar MD [facility] [address] [place] [address] 12/13/2022 09:29:48 12/13/2022 10:00:15 Chronic atrial fibrillation 085362657 I48.20 12/13/22:unk nown last time he saw cardioPEx- heart rate irregularl y irregulars tates that he has been taking his meds, chart review shows last fill 04/202211/28/21:on ASA 81 mglast saw Cardiology 2019, ddx with CAD, cardiomyop athy, and chronic A fibdue for f/u cardio Screening for malignant neoplasm of colon 704625421 Z12.11 cologuard positiveco lonoscopy 01/2022 showed adenoma, rec'd repeat in 1 yrdue for repeatwill send referral Depression screening 171 600370 Z13.31 PHQ 6 Retention of urine 04724 4002 R33.9 x1 yrfeels like he has to go and dribbles, occurs a couple times/week trial flomaxf/u in 2 wks Fracture o f multiple ribs 3854055 S22.42XA 12/06/22 CTA chest: moderate emphysema, 4 [...] 2 wks Closed fra cture of sternum 95817991 S22.20XA non-displa cedPEx- diffuse ecchymosis to mid chest/ster nal areac/w lidocaine patches and tylenol PRN [id number] Petey melgar MD [facility] [address] [place] [address] 12/28/2022 12:00:47 12/28/2022 12:52:39 Fracture of multiple ribs 5228990 S22.42XA 12/28/22:ta turner OTC pain relief 500 [...] 2 wks Closed fra cture of sternum 00638895 S22.20XA 12/28/22:pa in is improving 12/13/22:non -displaced PEx- diffuse ecchymosis to mid chest/ster nal areac/w lidocaine patches and tylenol PRN Retention of urine 83179 4002 R33.9 12/28/22:im provement with flomaxdrib chelsie has decreased 12/13/22:x1 yrfeels like he has to go and dribbles, occurs a couple times/week trial flomaxf/u in 2 wks Chronic at rial fibrillation 437918597 I48.20 12/28/22:ca rdio note 01/2022 on ASA 325refer back to Dr. Carlson 12/13/22:unk nown last time he saw cardioPEx- heart rate irregularl y irregulars tates that he has been taking his meds, chart review shows last fill 04/202211/28/21:on ASA 81 mglast saw Cardiology 2019, ddx with CAD, cardiomyop athy, and chronic A fibdue for f/u cardio Screening for malignant neoplasm of colon 674094576 Z12.11 12/28/22: Dr Burnham office aware, advised pt to contact office for appt 12/13/22:col oguard positiveco lonoscopy 01/2022 showed adenoma, rec'd repeat in 1 yrdue for repeatwill send referral Pulmonary emphysema 8743 3001 J43.9 on two inhalers, doesn't know which oneper pharmacy, was on ventolin, fluticason e- scripts have not been picked up in over 1 yrrefer to pulmf/u in 1 mo Osteoporosis 82714987 M8 1.0 DEXA 2018 showed osteoporos haylee alendronat edue for repeatre-c heck Vit D levelorder ed DEXAf/u in 1 mo Overweight 654633168 E66 .3 due for routine labs [id number] Petey melgar MD [facility] [address] [place] [address] 02/07/2023 10:44:18 02/07/2023 11:32:00 Fracture of multiple ribs 0015078 S22.42XA 02/07/23:pa in is improving 12/28/22:ta turner OTC pain relief 500 mg [...] 2 wks Closed fra cture of sternum 62955024 S22.20XA 02/07/23:ab le to take deep breaths w/o painno longer needs lidocaine patches 12/28/22:pa in is improving 12/13/22:non -displaced PEx- diffuse ecchymosis to mid chest/ster nal areac/w lidocaine patches and tylenol PRN Chronic at rial fibrillation 084607121 I48.20 02/07/23:PE x- HR irregularl y irregularp [...] yrrefer to pulmf/u in 1 mo Osteoporosis 73646765 M8 1.0 02/07/23:c/ w Vit Dwill not continue alendronat egave exercises to do at home 11/28/21DE XA 2017 showed osteoporos haylee alendronat edue for repeatre-c heck Vit D levelorder ed DEXAf/u in 1 mo Screening for malignant neoplasm of colon 726625717 Z12.11 02/07/23: colonoscop y scheduled 12/28/22: Dr Burnham office aware, advised pt to contact office for appt 12/13/22:col oguard positiveco lonoscopy 01/2022 showed adenoma, rec'd repeat in 1 yrdue for repeatwill send referral Hyperlipidemia 46445167 E78.5 refill Depression screening 171 979885 Z13.31 PHQ 3 [id number] Petey melgar MD [facility] [address] [facility] [place] [address] 04/05/2023 10:39:19 04/08/2023 16:05:09 Chronic atrial fibrillation 403247209 I48.20 04/05/23: w Dr. Carlson on 02/22/23: afib- asymptomat ic, on ASA 325, [id number] 0, f/u in 6 mo, discussed results [...] chronic A fibdue for f/u cardio Osteoporosis 61920055 M8 1.0 04/05/23:DE XA 12/2022: osteopenia L [...] mo Screening for malignant neoplasm of colon 614933810 Z12.11 04/05/23:tu bular adenomas, repeat 202502/07/23: colonoscop y scheduled 12/28/22: Dr Burnham office aware, advised pt to contact office for appt 12/13/22:col oguard positiveco lonoscopy 01/2022 showed adenoma, rec'd repeat in 1 yrdue for repeatwill send referral Depression screening 171 262525 Z13.31 PHQ 0 Closed fra cture of sternum 15405528 S22.20XA 04/05/23:st ill c/o mid sternal painworse [...] nal areac/w lidocaine patches and tylenol PRN [id number] Petey melgar MD [facility] [address] [place] [address] 10/10/2023 09:07:50 10/10/2023 09:47:19 Chronic atrial fibrillation 559574969 I48.20 10/10/23: saw Dr. Carlson 08/2023, EF 40%, stopped losartanne ed consult note 04/05/23:sa w Dr. Carlson on 02/22/23: afib- asymptomat ic, on ASA 325, [id number] 0, f/u in 6 mo, discussed results [...] 1 mo Dupuytren' s contracture of finger 555360591 M72.0 bilateral pinky fingersa/w intermitte nt numbnessre mark to hand surgery Dizziness 854002266 R42 10/10/23: x3 wksoccurs with position changes [...] sx do not improve Depression screening 171 689453 Z13.31 PHQ 8 [id number] Petey melgar MD [facility] [address] [place] [address] 11/14/2023 15:13:06 11/14/2023 15:48:53 Neck pain 94465197 M54.2 s/p fall 11/10/23wen t to ED, CT brain, CT C spine, CT chest, XR R shoulder normaltaki ng tizanidine with some improvemen tc/o pulling to R side of neck and R shoulderPE x- FROM R shoulder joint and C spinept requesting PT for neck pain, will send referral Dupuytren' s contracture of finger 858316857 M72.0 11/14/23: saw Dr. Hayes 10/31/23- dupuytren' s disease R hand, discussed surgery vs injections 10/10/23:bi lateral pinky fingersa/w intermitte nt numbnessre mark to hand surgery [id number] Petey melgar MD [facility] [address] [place] [address] 01/08/2024 09:11:55 01/08/2024 09:27:38 Neck pain 26009156 M54.2 01/08/24: improvemen t in neck pain [...] yrrefer to pulmf/u in 1 mo Hyperlipidemia 88348152 E78.5 refill Depression screening 171 396287 Z13.31 PHQ 0 Chronic at rial fibrillation 229336789 I48.20 01/08/24: HR irregularl y irregular, chronic 10/10/23: saw Dr. Carlson 08/2023, EF 40%, stopped losartanne ed consult note 04/05/23:sa ruby Carlson on 02/22/23: afib- asymptomat ic, on ASA 325, [id number] 0, f/u in 6 mo, discussed results [...] and chronic A fibdue for f/u cardio [id number] Petey melgar MD [facility] [address] [place] [address] 03/03/2024 12:20:31 03/03/2024 12:43:41 Adult health examination 699978448 Z00.00 routine labs [id number] Cyrus Lucas MD [facility] [address] [place] [address] 10/06/2024 09:19:56 10/06/2024 10:00:17 Pulmonary emphysema 49106068 J43.9 10/06/24: pt is not on air duo/advair , sent to pharmacy OV with Pulm 09/07/24-CO PD/emphyse maContinue albuterol. Seems to be on air duo also.Repea t PFT ILD-pulmon jesusita fibrosisMa ybe CPFE vs work related pneumonoco niosisvs HP vs other. CT from outside hospital with reportedly some upper lobe fibrosis honeycombi ng.Never got labs doneRepeat ct Tobacco abuse50 pack year history, quit 2017Lung cancer screening ct 01/08/24: has appt 01/13/24as [...] in 1 mo Chronic at rial fibrillation 785462759 I48.20 10/06/24: OV with Dr. Carlson 09/02/24- discussed echo results, do not see results in consult notec/w metoprolol 50 and ASA 325 01/08/24: HR irregularl y irregular, chronic 10/10/23: saw Dr. Carlson 08/2023, EF 40%, stopped losartanne ed consult note 04/05/23:sa w Dr. Carlson on 02/22/23: afib- asymptomat ic, on ASA 325, [id number] 0, f/u in 6 mo, discussed results [...] fibdue for f/u cardio Retention of urine 31554 4002 R33.9 10/06/24 increase flomax to 0.8 mg 12/28/22:im provement with flomaxdrib chelsie has decreased 12/13/22:x1 yrfeels like he has to go and dribbles, occurs a couple times/week trial flomaxf/u in 2 wks Dysuria 64883433 R30.0 10/06/24: intermitte nt, before and during urination x3 mono hematurian o h/o kidney stonesurin e dip showed moderate leuks and moderate non-hemoly zed bloodsent for UA, did not provide enough urine, will come back to leave urine sample for culture Depression screening 171 402224 Z13.31 PHQ 0 Strain of thoracic region 76583040 S29.019A twisted the wrong way on his stairs yesterday and pulled muscle on the right side of his backrec'd heating, light stretching pt has tizanidine script [id number] Cyrus Lucas MD [facility] [address] [place] [address] 10/08/2024 12:55:58 10/08/2024 13:06:40 [id number] Cyrus Lucas MD [facility] [address] [place] [address] 02/03/2025 16:57:15 02/03/2025 17:51:35 Change in skin lesion 040187747 L81.9 to L chinreques ting Derm referral Neoplasm o f urinary bladder 837916387 D49.[address] Friedman 01/01/25-T 2 N0 M0 stage II high-grade muscle invasive invasive urothelial carcinoma status post TURBT done on December 17, 2024. Patient was originally diagnosed on December 03, 2024 when underwent cystoscopy for hydrourete ronephrosi s and biopsy was performed from the large bladder mass showed invasive urothelial carcinoma with muscularis propria invasion. Patient underwent stent placement in the right ureter. CT scan abdomen and pelvis done on December 20 showed no evidence of lymphadeno alok. There was abnormal thickening of the bladder wall more prominent posteriorl y and left lateral margins of the bladder. I would recommend concurrent chemoradia tion therapy in an adjuvant setting with cisplatin him if his kidney function improves otherwise 5-FU plus mitomycin on low-dose gemcitabin e. I will refer him for chemothera py teaching as well as Mediport placement. I will refer for radiation oncology consultati on. Ureteric s tent present 7868803703 Z96.0 Left percutaneo us nephrostom y and ureteral stent placement 12/10/24 Depression screening 171 807424 Z13.31 PHQ 4 Health Concerns Section Related Observation LastModified by Organization Detai ls LastModified Time None Recorded Concern Status LastModified by Organization Details LastModified Time None Recorded Advance Directives Directive N: Payers Insurance Date Sequence Insurance Name Policy Number Policy Hankins Covered Member ID Hankins Member ID Guarantor Name 02/09/2025 [place] [facility] Stanislav Cho [id number] Stanislav Cho 02/03/2025 1 [place] Stanislav Cho [id number] Stanislav Cho 02/03/2025 1 [facility] (MEDICAID HMO) Stanislav Cho [id number] Stanislav Cho 02/09/2025 1 [facility] (MEDICARE REPLACEMENT/A DVANTAGE - HMO) [id number] Stanislav Cho [id number] Stanislav Cho 02/03/2025 1 [facility] - DOS PRIOR TO 2021 (MEDICAID REPLACEMENT - HMO) Stanislav Cho [id number] Stanislav Cho 02/03/2025 1 [facility] [id number] Stanislav Cho [id number] Stanislav Cho Notes Date Note Type Note Provider Name and Address Organization Details Recorded Time 01/08/2024 text/html Pt presents for f/u. Reports that his neck pain has improved with physical therapy and has his final evaluation tomorrow. States that his R shoulder has been bothering me more with exercises from PT. Declines referral or work-up for R shoulder pain. STELLA CABRERA Attn: Accounting[address] [place], [address], [facility] 01/08/2024 13:16:36 10/06/2024 text/html Pt presents for 6 mo f/u. C/o intermittent burning sensation before and during urination x3 months. C/o urinary retention and sometimes only urinates 1-2 ounces. He has been compliant with flomax. Admits to drinking tea all day and wakes up 5-6x per night to urinate. Denies hematuria. STELLA CABRERA Attn: Accounting,[address] [place], [address], [facility] 10/06/2024 14:11:45 02/03/2025 text/html Patient presents for hospital follow-up. States that 2 months ago he was diagnosed with stage II bladder cancer. He also has a stent in each of his kidneys and we will get a catheter next week. He has port placed to the right side of his chest. Patient reports that he will get another CT next week and then we will discuss chemo after that. Admits to feeling sad and scared, but has support from his brother. STELLA CABRERA Attn: Accounting[address] [place], [address], [facility] 02/04/2025 11:00:18
--- OUTSIDE RECORDS SUMMARY | 2025-02-25 10:15 | XMS_ITS | Clinical Summary ---
Author Organization [facility] Laila sharma Jw Address [address] [address] Care Team Providers Care Food Specialist Name Role Phone Unavailable Primary Care Provider Unavailabl e Allergies No known active allergies Medications metoprolol succinate (TOPROL XL) 50 mg Extended Release 24 hour tablet Take 50 mg by mouth daily. 07/30/20 24 Active atorvastatin (LIPITOR) 40 mg tablet Take 40 mg by mouth daily. Active dilTIAZem (TIAZAC) 120 mg Extended Release capsule Take 120 mg by mouth daily. 12/10/19 25 Active cyanocobalamin 1,000 mcg Tablet Take 1,000 mcg by mouth daily. Active cholecalciferol 1,250 mcg (50,000 unit) Capsule 50,000 Units by See Admin Instructions route every 7 days. 09/06/19 24 Active tamsulosin (FLOMAX) 0.4 mg capsule Take 0.4 mg by mouth daily. Active aspirin (LUISA) 325 mg tablet Take 325 mg by mouth daily. 12/29/19 23 Active nitroglycerin (NITROSTAT) 0.4 mg Tablet, Sublingual Place 0.4 mg under tongue every 5 minutes as needed for Chest Pain. Active albuterol sulfate HFA 90 mcg/actuation aerosol inhaler 2 Puffs by See Admin Instructions route see administration instructions. 09/07/19 25 Active budesonide-form oteroL (SYMBICORT) 160-4.5 mcg/actuation HFA Aerosol Inhaler 2 Puffs by See Admin Instructions route see administration instructions. Active lidocaine-prilo roxie (EMLA) 2.5-2.5 % CreamIndication s:Malignant neoplasm of urinary bladder, unspecified site (CMS/HCC) Apply a quarter size amount to port site 30 minutes before access. 30 Gram 1 02/23/20 25 Active ondansetron (ZOFRAN ODT) 8 mg Tablet, Rapid Dissolve Dissolve 1 tablet on top of tongue then swallow with saliva every 8 hours as needed for nausea or vomiting 30 Tablet 1 02/23/20 25 Active Active Problems No known active problems Encounters Date Type Department Care Team Description 02/23/2025 Orders Only [facility] Oncology and Hematology [facility] [address] [place] [address] Dyllan Friedman MD Malignant neoplasm of urinary bladder, unspecified site (CMS/HCC) (Primary Dx) 02/22/2025 Refill [facility] Oncology and Hematology [facility] [address] [place] [address] Dyllan Friedman MD Malignant neoplasm of urinary bladder, unspecified site (CMS/HCC) (Primary Dx) 02/02/2025 External Device Data STL ABSTRACTION Provider, Abstract 01/05/2025 External Device Data ST[facility] ABSTRACTION Provider, Abstract 01/05/2025 External Device Data [facility] ABSTRACTION Provider, Abstract 01/05/2025 External Device Data ST[facility] ABSTRACTION Provider, Abstract 01/01/2025 11:00 AM CDT Office Visit [facility] Oncology [facility] Hematology [facility] [address] [place] [address] Dyllan Friedman MD Malignant neoplasm of urinary [...] 01/01/2025 10:43 AM CDT Plan of Treatment Upcoming Encounters Date Type Department Care Team (Late st Contact Info) Description 03/02/2025 8:45 AM CDT Office Visit [facility] Oncology and Hematology - [place] [address] [facility] [address] [place] [address] Dyllan Friedman MD [address] [facility] [address] [place] [address] Health Maintenance Due Date Last [...] - Risk 60-74 years 1-dose series) 2017 Medicare Ad[place]age ([place]) Prev entative Visit/Annual Wellness Visit 08/12/2024 INFLUENZA VACCINE (#1) 2025 05/07/2018 Insurance [facility] H[facility] [id number]
--- OUTSIDE RECORDS SUMMARY | 2025-02-25 10:15 | XMS_ITS | Encounter Summary ---
Author Organization [facility] Address [address] [place] [address] Care Team Providers Care Advertising Operations Coordinator Name Role Phone Mikel Shepard MD Unavailable [phone] Jazmin Abel MD Primary Care Provider David Felix MD Unavailable Raya Lozoya PA-C Primary Care Provider [phone] Encounter Details Date Type Department Care Team (Late st Contact Info) Description 07/19/2017 Abstract [facility] at [address] [address] Mallory Jackson MA Social History [...] on filedocumented in this encounter Care Teams Advertising Operations Coordinator Relationship Specialty Start Date End Date Jazmin Abel MD [facility] Formerly [facility] [place] [address] PCP - General FAMILY PRACTICE 03/30/19 12/09/24 Raya Lozoya PAMarileeC [address] [place] [id number] PCP - General PHYSICIAN NUT SORTER 12/10/24 Mikel Shepard MD [place] [employer] Specialty Worker CARDIOVASCULAR DISEASE 06/18/17 04/01/18 David Felix MD [facility] [address] [place] [address] [place] [employer] Specialty Worker INTERVENTIONAL CARDIOLOGY 06/17/19 documented as of this encounter
--- OUTSIDE RECORDS SUMMARY | 2025-02-25 10:16 | XMS_ITS | Encounter Summary ---
Author Organization [facility] Care Team Providers Care Pile Driving Superintendent Name Role Phone Jazmin Abel MD Primary Care Provider [phone] Raya Lozoya Primary Care Provider [phone] Encounter Details Date Type Department Care Team (Latest Contact Info) Description 04/04/2016 Orders Only [facility] ProviderCameron MD [address] [place] [address] Social History Tobacco Use Types Packs/Day Years Used Date Smoking Tobacco: Never Assessed Sex and Gender Information Value Date Recorded Sex Assigned at Not on file Legal Sex Male 9:52 AM JOB BOSS Gender Identity Not on file Sexual Orientation [...] on filedocumented in this encounter Care Teams Pile Driving Superintendent Relationship Specialty Start Date End Date Jazmin Abel MD PCP - General Family Medicine 06/12/18 01/08/22 Raya Lozoya PA [address] [place] [address] PCP - General Physician Returns Clerk 01/09/22 documented as of this encounter
--- OUTSIDE RECORDS SUMMARY | 2025-02-25 10:16 | XMS_ITS | Encounter Summary ---
Author Organization [facility] Facility Care Team Providers Care Wool Grower Name Role Phone Jazmin Abel MD Primary Care Provider [phone] Raya Lozoya Primary Care Provider [phone] Encounter Details Date Type Department Care Team (Latest Contact Info) Description 06/26/2018 Orders Only [facility] CLINCONV ProviderCameron MD [address] [place] [address] Social History Tobacco Use Types Packs/Day Years Used Date Smoking Tobacco: Never Assessed Sex and Gender Information Value Date Recorded Sex Assigned at Not on file Legal Sex Male 9:52 AM SKIN DIVER Gender Identity Not on file Sexual Orientation Not on file documented as of this encounter Plan of Treatment Not on file documented as of this encounter Procedures Procedure Name Priority Date/Time Associated Diagnosis Comments CARDIOLOGY REPORT 07/08/2018 12: 00 AM SKIN DIVER documented in this encounter Results * CARDIOLOGY REPORT (07/08/2018 12:00 AM SKIN DIVER) Anatomical Region Laterality Modality Other Narrative 07/08/2018 12:00 AM SKIN DIVER Ordered by an unspecified provider. Historical Provider [facility] PHIL RIZVI Final Result documented in this encounter Visit Diagnoses Not on filedocumented in this encounter Care Teams Wool Grower Relationship Specialty Start Date End Date Jazmin Abel MD PCP - General Family Medicine 06/12/18 01/08/22 Raya Lozoya PA [facility] [place] [address] PCP - General Physician Technical Staff Assistant 01/09/22 documented as of this encounter
--- OUTSIDE RECORDS SUMMARY | 2025-02-25 10:16 | XMS_ITS | Encounter Summary ---
Author Organization [facility] Facility Care Team Providers Care Human Capital Consultant Name Role Phone Jazmin Abel MD Primary Care Provider [phone] Raya Lozoya Primary Care Provider [phone] Encounter Details Date Type Department Care Team (Latest Contact Info) Description 07/28/2017 Orders Only [facility] CLINCON[facility] ProviderCameron MD [address] [place] [address] Social History Tobacco Use Types Packs/Day Years Used Date Smoking Tobacco: Never Assessed Sex and Gender Information Value Date Recorded Sex Assigned at Not on file Legal Sex Male 9:52 AM CRAB PICKER Gender Identity Not on file Sexual Orientation Not on file documented as of this encounter Plan of Treatment Not on file documented as of this encounter Procedures Procedure Name Priority Date/Time Associated Diagnosis Comments CARDIOLOGY REPORT 07/01/2018 12: 00 AM CRAB PICKER documented in this encounter Results * CARDIOLOGY REPORT (07/01/2018 12:00 AM CRAB PICKER) Anatomical Region Laterality Modality Other Narrative 07/01/2018 12:00 AM CRAB PICKER Ordered by an unspecified provider. Historical Provider [facility] PHIL RIZVI Final Result documented in this encounter Visit Diagnoses Not on filedocumented in this encounter Care Teams Human Capital Consultant Relationship Specialty Start Date End Date Jazmin Abel MD PCP - General Family Medicine 06/12/18 01/08/22 Raya Lozoya PA [address] [place] [address] PCP - General Physician Chief Lock Operator 01/09/22 documented as of this encounter
--- OUTSIDE RECORDS SUMMARY | 2025-02-25 10:16 | XMS_ITS | Referral Summary ---
Author Organization [facility] Address [address] [place] [address] Care Team Providers Care Flame Degreaser Name Role Phone Raya Lozoya Primary Care Provider [phone] Allergies No known active allergies Medications alendronate [...] inhalerIndicati ons:ILD (interstitial lung disease) ([facility]),Chronic obstructive pulmonary disease, unspecified COPD type ([facility]) Inhale 2 puffs every 6 (six) hours [...] Former Cigarettes 1 50 1 968 - 2018 Smokeless Tobacco: Never Sex and Gender Information Value Date Recorded Sex Assigned at Not on file Legal Sex Male 9:52 AM DIRECTOR BIOLOGY Gender Identity Not on file Sexual Orientation Not on file Occupation Industry Job Start Date Job End Date disabled Not on file Not on file Not on file Last Filed Vital Signs Vital Sign Reading Time Taken Comments Blood Pressure 117/66 09/07/2024 1:50 PM DIRECTOR BIOLOGY Pulse 54 09/07/2024 1:50 PM DIRECTOR BIOLOGY Temperature 36.5 C (97.7 F) 04/04/2016 3:05 PM CDT Respiratory Rate 18 09/07/2024 1:50 PM DIRECTOR BIOLOGY Oxygen Saturation 98% 09/07/2024 1:50 PM DIRECTOR BIOLOGY Inhaled Oxygen Concentration - - Weight 92.1 kg (203 lb) 09/07/2024 1:50 PM DIRECTOR BIOLOGY Height 185.4 cm (6' 1) 09/07/2024 1:50 PM DIRECTOR BIOLOGY Body Mass Index 26.78 09/07/2024 1:50 PM DIRECTOR BIOLOGY Plan of Treatment Not on file Procedures Procedure Name Priority Date/Time Associated Diagnosis Comments CT LUNG CANCER SCREENING Schedule Routine, Read Routine (OP Routine) 11/05/2024 2:44 PM CDT Cigarette nicotine dependence without complication from Last 3 Months or Most Recently Relevant to Health Maintenance Results * CT Lung Cancer Screening (11/05/2024 [...] signed by Alessio RICHARD T: Report ID: [id number] Reading Location: [id number] Procedure Note Alessio Vernon MD - 11/13/2024 [...] signed by Alessio RICHARD T: Report ID: [id number] Reading Location: [place] [address] Stacia Anthony MD IMG CT PROCEDURES Final Resul t from Last 3 Months or Most Recently Relevant to Health Maintenance Insurance [facility] , [address] [place] [address] Care Teams Flame Degreaser Relationship Specialty Start Date End Date Raya Lozoya PA [address] [place] [address] PCP - General Physician Carpet Or Rug Layer Helper 01/09/22
--- OUTSIDE RECORDS SUMMARY | 2025-02-25 10:16 | XMS_ITS | Clinical Summary ---
Author Organization [facility] Address [address] [place] [address] Care Team Providers Care Inside Sales Director Name Role Phone Raya Lozoya Primary Care Provider [phone] Allergies No known active allergies Medications alendronate [...] inhalerIndicati ons:ILD (interstitial lung disease) ([facility]),Chronic obstructive pulmonary disease, unspecified COPD type ([facility]) Inhale 2 puffs every 6 (six) hours [...] upper arm 10/14/2013 Fracture of humerus 10/14/2013 Surgical History Surgery Date Site/Laterality Comments ARM [...] on file Legal Sex Male 9:52 AM REFRIGERATOR ASSEMBLER Gender Identity Not on file Sexual Orientation Not on file Occupation Industry Job Start Date Job End Date disabled Not on file Not on file Not on file Obstetrics History Last Filed Vital Signs Vital Sign Reading Time Taken Comments Blood Pressure 117/66 09/07/2024 1:50 PM REFRIGERATOR ASSEMBLER Pulse 54 09/07/2024 1:50 PM REFRIGERATOR ASSEMBLER Temperature 36.5 C (97.7 F) 04/04/2016 3:05 PM CDT Respiratory Rate 18 09/07/2024 1:50 PM REFRIGERATOR ASSEMBLER Oxygen Saturation 98% 09/07/2024 1:50 PM REFRIGERATOR ASSEMBLER Inhaled Oxygen Concentration - - Weight 92.1 kg (203 lb) 09/07/2024 1:50 PM REFRIGERATOR ASSEMBLER Height 185.4 cm (6' 1) 09/07/2024 1:50 PM REFRIGERATOR ASSEMBLER Body Mass Index 26.78 09/07/2024 1:50 PM REFRIGERATOR ASSEMBLER Plan of Treatment Health Maintenance Due Date [...] signed by Alessio RICHARD T: Report ID: [id number] Reading Location: [place] [address] Procedure Note Alessio Vernon MD - 11/13/2024 [...] signed by Alessio RICHARD T: Report ID: [id number] Reading Location: [place] [address] Stacia Anthony MD IM CT PROCEDURES Final Resul t from Last 3 Months or Most Recently Relevant to Health Maintenance Insurance [facility] MEDIC[facility] Care Teams Inside Sales Director Relationship Specialty Start Date End Date Raya Lozoya PA [facility] [place] [address] PCP - General Physician Board Member 01/09/22
== END 2025-02-25 10:10 | disposition home or self-care (01) ==
PROVIDERS: PCP Physician Assistant; Visit Provider Radiology Radiation Oncology
DX: R93.89 Abnormal findings on diagnostic imaging of other specified body structures (principal); C67.5 Malignant neoplasm of bladder neck
CPT/HCPCS: 78815; A9552

== ENCOUNTER → 2025-03-25 02:11 | Day surgery (SDC) | payer MEDICARE, MEDICAID, SELFPAY ==
--- NOTE | 2025-03-15 07:58 | P.HP_ITS ---
History of Present Illness History of Present Illness Consent: Risks, benefits, and alternatives have been discussed and questions answered. Patient agrees to proceed with procedure. Chief complaint: bladder CA Narrative: Remarkable presentation in the 69-year-old thin white male came to the ?ER at [facility] when Saturday evening with difficulty voiding. ?CT scan showed not only a distended bladder with bilateral hydronephrosis but a large mass in his bladder base. ?His serum creatinine at presentation was 12.46. ?Next morning his creatinine improved essentially none despite catheter drainage. ?I took him to the OR where resection of a portion of his bladder mesh shows muscle invasive bladder cancer. ?I was, somewhat miraculously, able to find his right ureteral orifice and placed a stent. ?With that his creatinine improved over several days to 1.82. He was seen by medical oncology and they feel chemoradiation may be his best option. ?I will arrange left nephrostomy tube with Nephro stent placement followed by aggressive debulking / bladder tumor resection. ?He will obviously need staging evaluation. Addendum Note?(Lon Foster MD; 12/14/2024 8:12 AM) 12/11/24: ?Successful left nephrostent placement Addendum Note?(Lon Foster MD; 12/17/2024 4:47 PM) Aggressive debulking of MICB. ?Was able to do a fairly effective job with the exception of tissue that was unreachable in the left anterior bladder wall near the bladder neck. Dr. Friedman managing MIBC with chem/rad. Ureteral stents origianally placed 12/17/24. Review of Systems Review of Systems: All systems reviewed & are unremarkable except as noted in HPI and below PMFSH Past Medical History Medical History Emphysema lung Acute arthritis Rheumatoid osteoperiostitis Afib Surgical History Surgical History History of surgery on arm History of shoulder surgery Family History Family History Sibling Heart disease Skin cancer Social History Social History Smoking packs per day: 1 Smoking cigarettes per day: 20.0 Years smoked: 45 Smoking pack-years: 45.00 Smoking status: Former smoker Tobacco type: cigarettes Second hand tobacco smoke exposure: No Smoking end date: 02/26/25 Alcohol intake: former Drinks per week: 4 Substance use: current Substance use type: marijuana Other substance usage details: daily use Last use: 11/30/24 Do You Feel Safe in your Home?: Yes Lack of Transportation: No Lack of Food: Never True Current Housing: I Have Housing Concerned About Future Housing: No Difficulty Paying Gas/Electric Bills: No Difficulty Paying for Meds: No Currently Unemployed: No Education: High School Diploma/GED Difficulty w/ Childcare or Family Care: No Living arrangements: alone Gender identity (if verbalized by the patient): Male Spiritual care concerns: No Meds Home Medications and Allergies Home Medications ?Medication ?Instructions ?Recorded ?Confirmed ?Type ergocalciferol (vitamin D2) 1,250 1,250 mcg PO WEEKLY 02/09/21 02/26/25 History mcg (50,000 unit) capsule nitroglycerin 0.4 mg sublingual 0.4 mg sublingual Q5M PRN Chest 02/09/21 02/26/25 History tablet Pain vitamin B12 0.5 mg-folic acid 1 mg 1 tablet PO DAILY 02/09/21 02/26/25 History tablet aspirin 325 mg tablet,delayed 325 mg PO DAILY 12/20/21 02/26/25 History release atorvastatin 40 mg tablet 40 mg PO DAILY 12/27/21 02/26/25 History tamsulosin 0.4 mg capsule 0.8 mg PO QAM 02/18/23 02/26/25 History albuterol sulfate 90 mcg/actuation 2 puff inhalation Q6H PRN 12/02/24 02/26/25 History aerosol inhaler shortness of breath or wheezing budesonide-formoterol HFA 160 2 puff inhalation DAILY 12/02/24 02/26/25 History mcg-4.5 mcg/actuation aerosol inhaler (Symbicort) metoprolol succinate 50 mg 50 mg PO BID #60 tabs 01/05/25 02/26/25 Rx tablet,extended release 24 hr Allergies Allergy/AdvReac Type Severity Reaction Status Date / Time No Known Allergies Allergy Verified 03/05/25 12:05 Exam Const: General: no acute distress Resp: Effort & Inspection: normal respiratory effort GI: Inspection: non-distended GI Palp: No abdominal tenderness and No Guarding due to palpation present (GI) Auscultation: normal bowel sounds Assessment and Plan Assessment and plan (1) Hydroureteronephrosis: Code(s): N13.30 - Unspecified hydronephrosis Status: Acute (2) Bladder cancer: Code(s): C67.9 - Malignant neoplasm of bladder, unspecified Status: Acute Assessment and Plan: * Cystoscopy, bilateral ureteral stent exchange
--- NOTE | 2025-03-15 15:23 | PC.NURSE ---
Report to the Outpatient Waiting Room, entrance under the green pavilion located off [facility], at time __6 AM on date __03/25/25 . Planned Procedure Time: __7 :30 AM .? Time changes happen often and if your time is changed the preop area will call you the afternoon before. - You and your visitor will be asked to self-screen and do not enter if you have any COVID symptoms. Please call surgeon if you need to reschedule. - A mask is optional within the hospital at this time. Patients may have clear liquids (water, carbonated beverages, clear teas, apple juice) until 3 hours prior to surgery ( 4:30 AM) with a maximum of 20 ounces. - No food from midnight until time of surgery and no smoking, or chewing tobacco (or any form of nicotine). No chewing gum, candy or mints. Take only the following medications with a SIP of water on the morning of surgery: __SYMBICORT INHALER, METOPROLOL DO NOT STOP ANY OF YOUR OTHER PRESCRIPTION MEDICATIONS PRIOR TO SURGERY EXCEPT THE FOLLOWING Hold all vitamins and supplements for 3 days per anesthesiologist.LAST DOSE 03/21/25 Medications to discontinue per physician ASPIRIN PER DR YBARRA Please no make-up, nail setswana, hairspray, perfume, deodorant, or body powder the day of surgery.? No jewelry (including any body piercings) or valuables the day of surgery, leave them at home.? Please take a shower or bath the night before, or the morning of, surgery with an antibacterial soap.? Wear comfortable, loose fitting clothing.? Children are encouraged to wear pajamas. - Jewelry must be removed prior to entering the operating room.? Rings and piercings that are not removed may be cut off. - The hospital will not accept responsibility for valuables.? - Please leave all valuables, including medications, at home the day of surgery. If you are going home after surgery, a licensed dinkey driver must drive you home.? - NO public transportation without another adult if you receive anesthesia. - We recommend that an adult stay with you for 24 hours following discharge. - We also recommend that you do not drive, make important decision, drink alcoholic beverages, or take any drugs that were not prescribed by your health care provider for at least 24 hours after your discharge time. For Pediatric surgeries, we recommend two adults accompany the child home. Follow any additional instructions given to you from your surgeon. Telephone instructions given to _PATIENT and asked if any additional questions and then verbalized understanding. Patient advised to call surgeon office or pre surgery nurse liaison [phone] if any additional questions.
[2025-03-15 15:37] VITALS: BMI 24.4
--- OUTSIDE RECORDS SUMMARY | 2025-03-25 02:14 | XMS_ITS | Encounter Summary ---
Author Organization [facility] Care Team Providers Care Building Operator Name Role Phone Jazmin Abel MD Primary Care Provider [phone] Raya Lozoya Primary Care Provider [phone] Encounter Details Date Type Department Care Team (Latest Contact Info) Description 07/28/2017 Orders Only [facility] ProviderCameron MD [address] [place] [id number] Social History Tobacco Use Types Packs/Day Years Used Date Smoking Tobacco: Never Assessed Sex and Gender Information Value Date Recorded Sex Assigned at Not on file Legal Sex Male 9:52 AM AIRPORT RAMP SUPERVISOR Gender Identity Not on file Sexual Orientation Not on file documented as of this encounter Plan of Treatment Not on file documented as of this encounter Procedures Procedure Name Priority Date/Time Associated Diagnosis Comments CARDIOLOGY REPORT 07/01/2018 12: 00 AM AIRPORT RAMP SUPERVISOR documented in this encounter Results * CARDIOLOGY REPORT (07/01/2018 12:00 AM AIRPORT RAMP SUPERVISOR) Anatomical Region Laterality Modality Other Narrative 07/01/2018 12:00 AM AIRPORT RAMP SUPERVISOR Ordered by an unspecified provider. Historical Provider [facility] PHIL RIZVI Final Result documented in this encounter Visit Diagnoses Not on filedocumented in this encounter Care Teams Building Operator Relationship Specialty Start Date End Date Jazmin Abel MD PCP - General Family Medicine 06/12/18 01/08/22 Raya Lozoya PA [address] [place] [address] PCP - General Physician Crt 01/09/22 documented as of this encounter
--- OUTSIDE RECORDS SUMMARY | 2025-03-25 02:14 | XMS_ITS | Clinical Summary ---
Author Organization [facility] Laila sharma Jw Address [address] [place] [address] Care Team Providers Care Junior Qa Analyst Name Role Phone Unavailable Primary Care Provider [...] Encounters Date Type Department Care Team Description 03/23/2025 Orders Only [facility] Oncology and Hematology [facility] [address] [place] [id number] Dyllan Friedman MD 03/22/2025 10:15 AM CDT Office Visit [facility] Oncology and Hematology - [place] [address] [place] [phone] Dyllan Friedman MD Malignant neoplasm of urinary bladder, unspecified site (CMS/HCC) (Primary Dx) 03/15/2025 Orders Only [facility] Oncology and Hematology [facility] [address] [place] [phone] Dyllan Friedman MD Malignant neoplasm of urinary bladder, unspecified site (CMS/HCC) 03/05/2025 Abstract [facility] Oncology [facility] Hematology [facility] [address] [place] [phone] Dyllan Friedman MD 03/04/2025 Orders Only [facility] Oncology and Hematology [facility] [address] [place] [phone] Dyllan Friedman MD 03/02/2025 8:45 AM CDT Office Visit [facility] Oncology and Hematology - [place] [address] [place] [phone] Dyllan Friedman MD Malignant neoplasm of urinary bladder, unspecified site (CMS/HCC) (Primary Dx) 03/02/2025 External Device Data STL ABSTRACTION Provider, Abstract 03/01/2025 Orders Only [facility] Oncology and Hematology [facility] [address] [place] [phone] Dyllan Friedman MD Malignant neoplasm of urinary bladder, unspecified site (CMS/HCC) (Primary Dx) 02/23/2025 Orders Only [facility] Oncology [facility] Hematology [facility] [address] [place] [address] Dyllan Friedman MD Malignant neoplasm of urinary bladder, unspecified site (CMS/HCC) (Primary Dx) 02/22/2025 Refill [facility] Oncology [facility] Hematology [facility] [address] [place] [address] Dyllan Friedman MD Malignant neoplasm of urinary bladder, unspecified site (CMS/HCC) (Primary Dx) 02/02/2025 External Device Data ST[facility] ABSTRACTION Provider, Abstract 01/05/2025 External Device Data ST[facility] ABSTRACTION Provider, Abstract 01/05/2025 External Device Data ST[facility] ABSTRACTION Provider, Abstract 01/05/2025 External Device Data ST[facility] ABSTRACTION Provider, Abstract 01/01/2025 11:00 AM CDT Office Visit [facility] Oncology [facility] [address] [place] [address] Dyllan Friedman MD Malignant neoplasm of urinary [...] Sign Reading Time Taken Comments Blood Pressure 118/68 03/22/2025 9:57 AM CDT Pulse 81 03/22/2025 9:57 AM CDT Temperature 36.3 C (97.4 F) 03/22/2025 9:57 AM CDT Respiratory Rate 16 03/02/2025 8:28 AM CDT Oxygen Saturation 96% 03/22/2025 9:57 AM CDT Inhaled Oxygen Concentration - - Weight 81.6 kg (180 lb) 03/22/2025 9:57 AM CDT Height 185.4 cm (6' 1) 03/22/2025 9:57 AM CDT Body Mass Index 23.75 03/22/2025 9:57 AM CDT Plan of Treatment Upcoming Encounters Date Type Department Care Team (Late st Contact Info) Description 03/29/2025 9:00 AM CDT Office Visit [facility] Oncology and Hematology - [place] [address] [facility] [address] [place] [address] Dyllan Friedman MD [address] [facility] [address] [place] [address] Health Maintenance Due Date Last Done Comments DTAP/TDAP/TD VACCINES (1 - Tdap) 1976 PNEUMOCOCCAL VACCINE 50+ YEA RS (1 of 2 - PCV) 1976 COLORECTAL SCREENING 2002 Colorectal Cancer Screening 2002 FIT-DNA Q 3 years 2002 FIT/FOBT Q 1 year 2002 Flex Sig/CT Colonography Q 5 years 2002 ZOSTER VACCINE (1 of 2) 2007 RSV VACCINE (60+ or ) (1 - Risk 60-74 years 1-dose series) 2017 COVID-19 Vaccine ( - season) 2024, 06/14/2021 INFLUENZA VACCINE (#1) 2025 , 05/07/2018, 04/12/2016 Procedures Procedure Name Priority Date/Time Associated Diagnosis Comments BASIC METABOLIC PANEL Routine 03/22/2025 12:16 PM CDT COMPREHENSIVE METABOLIC PANEL Routine 03/22/2025 11:37 AM CDT BASIC METABOLIC PANEL Routine 03/01/2025 1:48 PM CDT COMPREHENSIVE METABOLIC PANEL Routine 03/01/2025 1:43 PM CDT from Last 3 Months Results * BASIC METABOLIC PANEL (03/22/2025 12:16 PM CDT) Only the most recent of2 resultswithin the time period is included. Blood Dyllan Friedman MD CHEMISTRY ORDERABLES Final Resu lt * COMPREHENSIVE METABOLIC PANEL (03/22/2025 11:37 AM CDT) Only the most recent of2 resultswithin the time period is included. Blood Dyllan Friedman MD CHEMISTRY ORDERABLES Final Resu lt from Last 3 Months Insurance [facility] [id number]
--- OUTSIDE RECORDS SUMMARY | 2025-03-25 02:14 | XMS_ITS | Encounter Summary ---
Author Organization [facility] ANITRA Potter [facility] Address [address] [place] [address] Care Team Providers Care Senior Maintenance Machinist Name Role Phone Unavailable Primary Care Provider Unavailabl e Encounter Details Date Type Department Care Team ([facility] Contact Info) Description 03/23/[address] [facility] Oncology and Hematology [facility] [address] [place] [address] Dyllan Friedman MD [address] [place] [address] Social History Tobacco Use Types Packs/Day Years Used Date Smoking Tobacco: Never Smokeless Tobacco: Never Alcohol Use Standard Drinks/Week Comments Never 0 (1 standard drink = 0.6 oz pur e alcohol) Sex and Gender Information Value Date Recorded Sex Assigned at Not on file Legal Sex Male 2:23 PM CDT Gender Identity Not on file Sexual Orientation Not on file documented as of this encounter Plan of Treatment Upcoming Encounters Date Type Department Care Team ([facility] Contact Info) Description 03/29/2025 9:00 AM CDT Office Visit [facility] Oncology and Hematology - [place] [address] [place] [address] Dyllan Friedman MD [address] [place] [phone] documented as of this encounter Procedures Procedure Name Priority Date/Time Associated Diagnosis Comments BASIC METABOLIC PANEL Routine 03/22/2025 12:16 PM CDT COMPREHENSIVE METABOLIC PANEL Routine 03/22/2025 11:37 AM CDT documented in this encounter Results * BASIC METABOLIC PANEL (03/22/2025 12:16 PM CDT) Blood us Dyllan Friedman MD CHEMISTRY ORDERABLES Final Resu lt * COMPREHENSIVE METABOLIC PANEL (03/22/2025 11:37 AM CDT) Blood us Dyllan Friedman MD CHEMISTRY ORDERABLES Final Resu lt documented in this encounter Visit Diagnoses Not on filedocumented in this encounter
--- OUTSIDE RECORDS SUMMARY | 2025-03-25 02:14 | XMS_ITS | Clinical Summary ---
Author Organization [facility] Address [address] [place] [address] Care Team Providers Care Senior Electrical Estimator Name Role Phone Raya Lozoya Primary Care Provider [phone] Allergies No known active allergies Medications alendronate [...] 90 mcg/actuation inhalerIndicati ons:ILD (interstitial lung disease) ([facility]),Chronic obstructive pulmonary disease, unspecified COPD type ([facility]) Inhale 2 puffs every 6 [...] Ringing in ear Arthritis Emphysema of lung Osteoarthritis Osteoporosis Anemia Family History Medical History [...] on file Legal Sex Male 9:52 AM HAND TACKER Gender Identity Not on file Sexual Orientation Not on file Occupation Industry Job Start Date Job End Date disabled Not on file Not on file Not on file Obstetrics History Last Filed Vital Signs Vital Sign Reading Time Taken Comments Blood Pressure 117/66 09/07/2024 1:50 PM HAND TACKER Pulse 54 09/07/2024 1:50 PM HAND TACKER Temperature 36.5 C (97.7 F) 04/04/2016 3:05 PM CDT Respiratory Rate 18 09/07/2024 1:50 PM HAND TACKER Oxygen Saturation 98% 09/07/2024 1:50 PM HAND TACKER Inhaled Oxygen Concentration - - Weight 92.1 kg (203 lb) 09/07/2024 1:50 PM HAND TACKER Height 185.4 cm (6' 1) 09/07/2024 1:50 PM HAND TACKER Body Mass Index 26.78 09/07/2024 1:50 PM HAND TACKER Plan of Treatment Health Maintenance Due Date [...] 2022 Well Visit 65+ 2022 Covid-19 Vaccine (3 - 2023- season) 2024, 06/14/2021 Influenza Vaccine (#1) 2025 , 05/07/2018, 04/12/2016 Lung Cancer Screening 11/06/2025 11/05/2024, [...] signed by Alessio RICHARD T: Report ID: [id number] Reading Location: [place] [address] Procedure Note Alessio Vernon MD - 11/13/2024 [...] signed by Alessio RICHARD T: Report ID: [id number] Reading Location: [place] [address] Stacia Anthony MD IM CT PROCEDURES Final Resul t from Last 3 Months or Most Recently Relevant to Health Maintenance Insurance [facility] [employer] [place] [address] Care Teams Senior Electrical Estimator Relationship Specialty Start Date End Date Raya Lozoya PA [facility] [place] [address] PCP - General Physician Sleeping Car Porter 01/09/22
--- OUTSIDE RECORDS SUMMARY | 2025-03-25 02:14 | XMS_ITS | Clinical Summary ---
Author Organization [facility] Address [address] [place] [address] Care Team Providers Care Cigar Head Piercer Name Role Phone David Felix MD Unavailable Raya Lozoya PA-C Primary Care Provider [phone] Allergies No known active allergies Medications INCRUSE ELLIPTA 62.5 MCG/INH AEROSOL POWDER, BREATH ACTIVATEDIndica tions:Pulmonary emphysema (CMS/HCC HHS/HCC) INHALE 1 PUFF BY MOUTH ONCE DAILY 30 each 6 09/04/2018 Active albuterol sulfate HFA (VENTOLIN HFA) 108 (90 Base) MCG/ACT inhalerIndicati ons:Pulmonary emphysema ([facility]/HCC HHS/HCC) Inhale 2 puffs into the lungs every 6 (six) hours as needed for Wheezing. 1 Inhaler 12/08/2018 Active aspirin 81 MG tablet Take 1 tablet (81 mg total) by mouth daily. 11/08/2014 Active vitamin D2, ergocalciferol, 76013 UNITS capsule Take 1 capsule (50,000 Units [...] AEROSOL POWDER, BREATH ACTIVATEDIndica tions:Centrilob ular emphysema ([facility]) Inhale 1 puff into the lungs 2 (two) times a day. 1 each 6 07/02/2019 Active Active Problems Problem Noted Date Diagnosed Date Cigarette nicotine dependence in remission 03/30 KELLI (obstructive sleep apnea) 10/25/2017 Pulmonary nodule 10/25/2017 Pulmonary emphysema ([facility]) 10/25/2017 Environmental and seasonal allergies 07/25/2017 Excessive daytime sleepiness 07/25/2017 GERD (gastroesophageal reflux disease) 7 SOB (shortness of breath) on exertion 07/25/2017 Paraseptal emphysema ([facility]) 7 Aortic atherosclerosis 07/19/2017 Precordial pain 07/19/2017 Syncope 07/19/2017 Former smoker 06/21/2017 Centrilobular emphysema ([facility]) 2016 Heart murmur 06/21/2017 Marijuana use 06/21/2017 [...] this topic Medical Devices Implanted Type Area Consumer Marketing Specialist Device Identifier Shelf Expiration Date Model / Serial / Lot Ureteral Stent-12/11/19 25 Implanted:Qt y: 1 on 12/10/2024 by Damian Duarte MD Stent Left: Ureter [employer] 12/09/2026 [id number] / / [id number] Procedures Procedure Name Priority Date/Time Associated Diagnosis Comments CT LUNG SCREENING Routine 12/22/2021 12: 26 PM CDT Nicotine dependence, cigarettes, in remission LIPID PANEL Routine 08/07/2017 9:50 AM MECHANICAL MAINTENANCE TECHNICIAN Chest pain SOB (shortness of breath) CT CHEST WO CON Routine 07/02/2017 10:10 AM MECHANICAL MAINTENANCE TECHNICIAN Abnormal chest x-ray HEPATITIS A,B,& C Routine 10/08/2014 12: 10 PM MECHANICAL MAINTENANCE TECHNICIAN from Last 3 Months or Most Recently Relevant to Health Maintenance Results * CT LUNG SCREENING (12/22/2021 12:26 PM [...] around 12/22/2022). Thank you for choosing the [facility]'s Lung Screening Program. Referred By: RAYA [...] or around12/22/2022). Thank you for choosing the [facility] Lung ScreeningProgram. Referred By: RAYA LOZOYA Interpreted By: Monty You MD, 12/28/2021 7:30 PM us Raya Lozoya PA-C CT Final Resu lt * (ABNORMAL) LIPID PANEL (08/07/2017 9:50 AM MECHANICAL MAINTENANCE TECHNICIAN) CHOLESTEROL 185 <200 MG/DL 08/07/2017 11:00 AM MECHANICAL MAINTENANCE TECHNICIAN [facility] TRIGLYCERIDES 66 <150 MG/DL 08/07/2017 11:[address] [facility] HDL 47 >40.0 MG/DL 08/07/2017 11:[address] [facility] LDL (CALCULATED) 124.8(H) <100 MG/L 08/07/20 17 11:[address] [facility] NON HDL CHOLESTEROL 138(H) <130 MG/DL 08/07/2017 11:[address] [facility] CHOL/HDL RATIO 3.9 0.0 - 4.5 08/07/2017 11:[address] [facility] VLDL CALCULATION 13 5 - 55 MG/DL 08/07/2017 11:[address] [facility] LIPID INTERPRETATION 08/07/2017 11:[address] [facility] Comment: [facility] CONCENSUS REPORT RECOMMENDATIONS: ADULT CHILD LOW RISK: CHOLESTEROL <200 <170 TRIGLYCERIDE <150 --- HDL >=60 --- LDL <100 <110 BORDERLINE: CHOLESTEROL 200-239 170-199 TRIGLYCERIDE 150-199 --- HDL 40-59 --- LDL 100-159 110-129 HIGH RISK: CHOLESTEROL >=240 >=200 TRIGLYCERIDE >=200 --- HDL <40 --- LDL >=160 >=130 08/07/2017 9:50 AM MECHANICAL MAINTENANCE TECHNICIAN Mikel Shepard MD LABORATORY Final Result [facility] [address] [place] [address], * CT CHEST WO CON (07/02/2017 10:10 AM MECHANICAL MAINTENANCE TECHNICIAN) Anatomical Region Laterality Modality Chest Computed Tomogra phy 07/02/2017 10:2 1 AM MECHANICAL MAINTENANCE TECHNICIAN Impressions 07/02/2017 10:46 AM MECHANICAL MAINTENANCE TECHNICIAN =====IMPRESSION:===== 1. Nodularity of the pleura particularly [...] of bowel involvement. Narrative 07/02/2017 10:46 AM MECHANICAL MAINTENANCE TECHNICIAN EXAMINATION: CT Chest without contrast EXAM DATE/TIME: [...] hiatus hernia without evidence of bowel involvement. us Missael Gray MD CT Final Res ult * HEPATITIS A,B,& C (10/08/2014 12:10 PM MECHANICAL MAINTENANCE TECHNICIAN) HAV IGM NON-REACTI VE NR [facility] TO [...] [facility]. 10/08/2014 12:1 0 PM MECHANICAL MAINTENANCE TECHNICIAN 10/08/2014 12:10 PM MECHANICAL MAINTENANCE TECHNICIAN Narrative [facility] TO EPIC CONVERSION - 10/11/2014 5:34 PM MECHANICAL MAINTENANCE TECHNICIAN 13Oct2014 7:23AM by Donovan Saba: Mr Tammie, Attached are your recent lab reports. They [...] Recently Relevant to Health Maintenance Insurance [facility] Care Teams Cigar Head Piercer Relationship Specialty Start Date End Date Raya Lozoya PAMarileeC [address] [place] [address] PCP - General PHYSICIAN DIRECTOR OF BILLING 12/10/24 David Felix MD [facility] [address] [place], [place] [id number] [place] Professor Of Biblical Studies INTERVENTIONAL CARDIOLOGY 06/17/19
--- OUTSIDE RECORDS SUMMARY | 2025-03-25 02:14 | XMS_ITS | Encounter Summary ---
Author Organization [facility] Facility Care Team Providers Care Hogshead Roller Name Role Phone Jazmin Abel MD Primary Care Provider [phone] Raya Lozoya Primary Care Provider [phone] Encounter Details Date Type Department Care Team (Latest Contact Info) Description 06/26/2018 Orders Only [facility] CLINCONV ProviderCameron MD [address] [place] [address] Social History Tobacco Use Types Packs/Day Years Used Date Smoking Tobacco: Never Assessed Sex and Gender Information Value Date Recorded Sex Assigned at Not on file Legal Sex Male 9:52 AM SECURITY PATROL DRIVER Gender Identity Not on file Sexual Orientation Not on file documented as of this encounter Plan of Treatment Not on file documented as of this encounter Procedures Procedure Name Priority Date/Time Associated Diagnosis Comments CARDIOLOGY REPORT 07/08/2018 12: 00 AM SECURITY PATROL DRIVER documented in this encounter Results * CARDIOLOGY REPORT (07/08/2018 12:00 AM SECURITY PATROL DRIVER) Anatomical Region Laterality Modality Other Narrative 07/08/2018 12:00 AM SECURITY PATROL DRIVER Ordered by an unspecified provider. Historical Provider [facility] Final Result documented in this encounter Visit Diagnoses Not on filedocumented in this encounter Care Teams Hogshead Roller Relationship Specialty Start Date End Date Jazmin Abel MD PCP - General Family Medicine 06/12/18 01/08/22 Raya Lozoya PA [facility] [place] [address] PCP - General Physician Rn Visiting 01/09/22 documented as of this encounter
--- OUTSIDE RECORDS SUMMARY | 2025-03-25 02:14 | XMS_ITS | Encounter Summary ---
Author Organization [facility] Address [address] [place] [address] Care Team Providers Care Partridge Farmer Name Role Phone Mikel Shepard MD Unavailable [phone] Jazmin Abel MD Primary Care Provider [phone] David Felix MD Unavailable Raya Lozoya PA-C Primary Care Provider [phone]- [phone] Encounter Details Date Type Department Care Team (Late st Contact Info) Description 07/19/2017 Abstract [facility] at [address] [address] Mallory Jackson MA Social History [...] on filedocumented in this encounter Care Teams Partridge Farmer Relationship Specialty Start Date End Date Jazmin Abel MD [facility] [place] [address] PCP - General FAMILY PRACTICE 03/30/19 12/09/24 Raya Lozoya PAMarileeC [address] [place] [phone] PCP - General PHYSICIAN TILE INSTALLER 12/10/24 Mikel Shepard MD [place] Chain Saw Operator CARDIOVASCULAR DISEASE 06/18/17 04/01/18 David Felix MD [facility]. [facility] [address] [place] [address] [place] Chain Saw Operator INTERVENTIONAL CARDIOLOGY 06/17/19 documented as of this encounter
--- OUTSIDE RECORDS SUMMARY | 2025-03-25 02:14 | XMS_ITS | Clinical Summary ---
Author Organization [facility] Address [address] [facility] [place] [address] Care Team Providers Care Director Risk Name Role Phone Jazmin Abel MD Primary Care Provider [phone] Source Comments [facility],non-owned Affiliates and Associated Physician Practices is amultiple site organization consisting of ambulatory clinics and hospital sitesin [place], [place], [place] and [place]. This disclosure is being madepursuant to the Care Everywhere program and may not contain all information available regarding this patient. Last updated 18.[facility] Allergies No known active allergies Medications * [...] on file Legal Sex Male 2:43 PM MANHOLE STRIPPER Gender Identity Not on file Sexual Orientation [...] you. Interventions: Insurance MEDICARE MEDICARE [facility] MANAGED MEDICARE ADV SELF PAY NO INSURANCE Member Subscriber Plan / Payer (Ef fective for All Dates) Name:Walter Henley Member ID:Not on file Relation to Subscriber:Not on file Name:WALTER HENLEY Subscriber ID:Not on file (Home) Address[address] [facility] [place] [address] Payer ID:Not on file Group ID:Not on file Type:Self Pay Address: [facility] MANAGED MEDICARE ADV MEDICARE Care Teams Director Risk Relationship Specialty Start Date End Date Jazmin Abel MD [address] [place] [address] PCP - General 05/14/19
--- OUTSIDE RECORDS SUMMARY | 2025-03-25 02:14 | XMS_ITS | Encounter Summary ---
Author Organization [facility] Facility Care Team Providers Care Vp Respiratory Name Role Phone Jazmin Abel MD Primary Care Provider [phone] Raya Lozoya Primary Care Provider [phone] Encounter Details Date Type Department Care Team (Latest Contact Info) Description 04/04/2016 Orders Only [facility] CLINCONV ProviderCameron MD [address] [place] [address] Social History Tobacco Use Types Packs/Day Years Used Date Smoking Tobacco: Never Assessed Sex and Gender Information Value Date Recorded Sex Assigned at Not on file Legal Sex Male 9:52 AM COTTON CLASSER Gender Identity Not on file Sexual Orientation [...] on filedocumented in this encounter Care Teams Vp Respiratory Relationship Specialty Start Date End Date Jazmin Abel MD PCP - General Family Medicine 06/12/18 01/08/22 Raya Lozoya PA [address] [place] [address] PCP - General Physician Mat Cutter 01/09/22 documented as of this encounter
--- NOTE | 2025-03-25 06:22 | WPDHPUPDATE1 ---
History and Physical Update Update Date/Time: 03/25/25 06:22 History and Physical has been reviewed, including an updated exam of the patient. There are NO changes in the patient's condition. Risks, benefits, and alternatives have been discussed and questions answered. Patient agrees to proceed with procedure.
[2025-03-25 06:30] VITALS: BP 90/55; PULSE 151; RESP 16; TEMP 36.7; O2SAT 100
[2025-03-25] MEDS: LACTATED RINGERS 1,000 ML 30 ML IV CONT (06:30)
--- NOTE | 2025-03-25 06:35 | ECG_ITS ---
Test Date: 2025-03-25 07:06:58 Measurements Intervals [place] Rate: 147 P: 0 PA: 0 QRS: -10 QRSD: 80 T: 32 QT: 279 QTc: 437 Interpretive Statements ATRIAL FIBRILLATION WITH RAPID VENTRICULAR RESPONSE LOW QRS VOLTAGE IN LIMB LEADS ABNORMAL ECG Compared to ECG 12/03/2024 14:21:36 HEART RATE HAS INCREASED Low QRS voltage now present Electronically Signed On 03-25-2025 07:55:00 CDT by Jorge Alberto Carlson D.O.
--- NOTE | 2025-03-25 07:19 | SUR.PREOP ---
PT CAME TO PREOP AT 0609, TRIED TO OBTAIN A SET OF VITALS, PT WAS FOUND TO BE TACHYCARDIC AND AN EKG WAS ORDERED. PT FOUND TO BE IN AFIB WITH RVR. PT WAS SENT TO ED WITH AN IV FOR FURTHER WORK UP.
== END ==
PROVIDERS: PCP Physician Assistant; Visit Provider Urology
PROC: (CPT 52352; principal; 2025-03-25 07:30)
DX: C67.9 Malignant neoplasm of bladder, unspecified (principal); Z53.8 Procedure and treatment not carried out for other reasons; I48.20 Chronic atrial fibrillation, unspecified; N32.89 Other specified disorders of bladder; J43.9 Emphysema, unspecified; N17.9 Acute kidney failure, unspecified; F12.90 Cannabis use, unspecified, uncomplicated; Z79.82 Long term (current) use of aspirin; Z79.51 Long term (current) use of inhaled steroids; Z98.890 Other specified postprocedural states; Z87.891 Personal history of nicotine dependence; Z84.0 Family history of diseases of the skin and subcutaneous tissue; Z82.49 Family history of ischemic heart disease and other diseases of the circulatory system
CPT/HCPCS: 93005; 99212; G0463; J7120

== ENCOUNTER 2025-03-25 07:11 | Inpatient (IN) | payer MEDICARE, MEDICAID, SELFPAY ==
[2025-03-25] VITALS (43 sets, daily range): BP systolic 78–105; BP diastolic 55–79; PULSE 94–154; RESP 13–23; TEMP 36.4–36.9; O2SAT 94–100; BMI 22.1
--- NOTE | ~2025-03-25 | CT_ITS ---
EXAMINATION: CTA chest PE protocol DATE: 03/25/2025 9:15 CDT INDICATION: Chest pain. Shortness of breath. Bladder cancer. TECHNIQUE: Computed tomographic angiography (CTA) of the chest was performed with 100 mL Omnipaque-35 0 intravenous contrast. The dose-length product was 292.88 mGy-cm. Maximum intensity projection 3D-re constructions of the aorta and other arteries were constructed by the technologist on a separate work station. COMPARISON: None Correlation: PET/CT 02/25/2025; CT abdomen pelvis 12/20/2024 FINDINGS: There is a 1.5 cm subcarinal lymph node. There is a mildly enlarged 1.1 cm right paratracheal lymph n ode. There are a few nonenlarged mediastinal and bilateral hilar lymph nodes. Heart is enlarged. Mild to moderate left-sided hydronephrosis. Partially visualized stent in the left renal pelvis. Mild right-sided hydronephrosis. Thoracic aorta is not aneurysmal. Mild atherosclerotic disease in the aortic arch. No pulmonary embolus identified. Small to moderate-sized left-sided pleural effusion. Small right-sided pleural effusion. Moderate centrilobular and paraseptal emphysema. There are a few reticular and ground glass opacities scattered throughout both lungs. No pulmonary ma ss. Multilevel mild degenerative change in the thoracic spine. Probable old compression fractures of the T8, T11 and L2 vertebral bodies. IMPRESSION: 1. No pulmonary embolism identified. 2. Small to moderate size left-sided pleural effusion. 3. Small right-sided pleural effusion 4.There are a few reticular and ground glass opacities scattered throughout both lungs. 5.There is a enlarged 1.5 cm subcarinal lymph node. There is a mildly enlarged 1.1 cm right paratrach eal lymph node. A follow up chest CT in 3 months is recommended. 6. Mild to moderate left-sided hydronephrosis. Partially visualized stent in the left renal pelvis. 7. Mild right-sided hydronephrosis. 8. Moderate centrilobular and paraseptal emphysema. 9. Probable old compression fractures of the T8, T11 and L2 vertebral bodies. Reviewed, dictated and finalized at location A. IMPRESSION: 1. No pulmonary embolism identified. 2. Small to moderate size left-sided pleural effusion. 3. Small right-sided pleural effusion 4.There are a few reticular and ground glass opacities scattered throughout bot h lungs. 5.There is a enlarged 1.5 cm subcarinal lymph node. There is a mildly enlarged 1.1 cm right paratracheal lymph node. A follow up chest CT in 3 months is recom mended. 6. Mild to moderate left-sided hydronephrosis. Partially visualized stent in th e left renal pelvis. 7. Mild right-sided hydronephrosis. 8. Moderate centrilobular and paraseptal emphysema. 9. Probable old compression fractures of the T8, T11 and L2 vertebral bodies.
--- NOTE | ~2025-03-25 | XR_ITS ---
CHEST RADIOGRAPH, PA AND LATERAL CLINICAL HISTORY: afib . COMPARISON: 01/18/2025 TECHNIQUE: PA and lateral views of the chest. FINDINGS Right internal jugular central venous port catheter identified with its tip projecting over the cavoa trial junction. The remainder of the cardiomediastinal silhouette is otherwise unremarkable. Hazy opacification of the left hemithorax, in comparison to the right for which a left-sided pleural effusion is suspected. Trace right-sided pleural effusion is also noted. Considerable pleural thickening is present, with additional findings suggesting interstitial lung dis ease (peripheral honeycombing and biapical bleb disease). Panlobular emphysematous change is also present. Elevation of the left hemidiaphragm is noted with adjacent compressive atelectasis. Pleural thickening with scar formation within the lateral margin of the right upper lobe, largely unc hanged from previous examination. The remainder of the lungs are clear. IMPRESSION: Interstitial lung disease with bilateral pleural effusions (left greater than right). Focal pleural thickening within the lateral margin of the right upper lobe, largely unchanged from pr evious radiograph dated 01/18/2025. The remainder of the lungs are clear. Reviewed, dictated and finalized at location A. IMPRESSION: Interstitial lung disease with bilateral pleural effusions (left greater than r ight). Focal pleural thickening within the lateral margin of the right upper lobe, lar av unchanged from previous radiograph dated 01/18/2025. The remainder of the lungs are clear.
--- NOTE | 2025-03-25 07:15 | ECG_ITS ---
Test Date: 2025-03-25 07:21:41 Measurements Intervals [place] Rate: 168 P: 0 VA: 0 QRS: -10 QRSD: 76 T: 43 QT: 224 QTc: 375 Interpretive Statements ATRIAL FIBRILLATION WITH RAPID VENTRICULAR RESPONSE LOW QRS VOLTAGE IN LIMB LEADS NONSPECIFIC ST & T-WAVE ABNORMALITY- HIGH LATERAL LEADS BASELINE ARTIFACT- I, II, AVR, AVL, V1 ABNORMAL ECG Compared to ECG 03/25/2025 07:06:58 HEART RATE HAS INCREASED Electronically Signed On 03-25-2025 07:54:33 CDT by Jorge Alberto Carlson D.O.
--- OUTSIDE RECORDS SUMMARY | 2025-03-25 07:33 | XMS_ITS | Clinical Summary ---
Author Organization [facility] Address [address] [place] [address] Care Team Providers Care Vineyard Supervisor Name Role Phone Jazmin Abel MD Primary Care Provider [phone] Source Comments [facility],non-owned Affiliates and Associated Physician Practices is amultiple site organization consisting of ambulatory clinics and hospital sitesin [place], [place], [place] and [place]. This disclosure is being madepursuant to the Care Everywhere program and may not contain all information available regarding this patient. Last updated 18.[facility] Allergies No known active allergies Medications * [...] on file Legal Sex Male 2:43 PM NEUROLOGY SPECIALIST Gender Identity Not on file Sexual Orientation [...] for you. Interventions: Insurance MEDICARE MEDICARE [facility] MANAGED MEDICARE ADV SELF PAY NO INSURANCE Member Subscriber Plan / Payer (Ef fective for All Dates) Name:Walter Henley Member ID:Not on file Relation to Subscriber:Not on file Name:WALTER HENLEY Subscriber ID:Not on file (Home) Address[address] [place] [address] Payer ID:Not on file Group ID:Not on file Type:Self Pay Address: [facility] MANAGED MEDICARE ADV MEDICARE Care Teams Vineyard Supervisor Relationship Specialty Start Date End Date Jazmin Abel MD [address] [place] [address] PCP - General 05/14/19
--- OUTSIDE RECORDS SUMMARY | 2025-03-25 07:33 | XMS_ITS | Encounter Summary ---
Author Organization [facility] ANITRA Potter [facility] Address [address] [place] [address] Care Team Providers Care Pigment Supplier Name Role Phone Unavailable Primary Care Provider Unavailabl e Encounter Details Date Type Department Care Team ([facility] Contact Info) Description 03/23/2025 Orders Only [facility] Oncology and Hematology [facility] [address] [place] [address] Dyllan Friedman MD [address] [place] [address] Social History Tobacco Use Types Packs/Day [...] Upcoming Encounters Date Type Department Care Team ([facility] Contact Info) Description 03/29/2025 9:00 AM CDT Office Visit [facility] Oncology and Hematology - [place] [address] [place] [address] Dyllan Friedman MD [address] [place] [phone] documented as of this encounter Procedures [...]
--- OUTSIDE RECORDS SUMMARY | 2025-03-25 07:33 | XMS_ITS | Clinical Summary ---
Author Organization [facility] Laila sharma [facility]w Address [address] [place] [address] Care Team Providers Care Fiscal Agent Name Role Phone Unavailable Primary Care Provider [...] Department Care Team Description 03/23/2025 Orders Only [facility] Oncology and Hematology [facility] [address] [place] [phone] Dyllan Friedman MD 03/22/2025 10:15 AM CDT Office Visit [facility] Oncology and Hematology - [place] [address] [place] [phone] Dyllan Friedman MD Malignant neoplasm of urinary bladder, unspecified site (CMS/HCC) (Primary Dx) 03/15/2025 Orders Only [facility] Oncology and Hematology [facility] [address] [place] [phone] Dyllan Friedman MD Malignant neoplasm of urinary bladder, unspecified site (CMS/HCC) 03/05/2025 Abstract [facility] Oncology [facility] Hematology [facility] [address] [place] [phone] Dyllan Friedman MD 03/04/2025 Orders Only [facility] Oncology and Hematology [facility] [address] [place] [phone] Dyllan Friedman MD 03/02/2025 8:45 AM CDT Office Visit [facility] Oncology and Hematology - [place] [address] [place] [phone] Dyllan Friedman MD Malignant neoplasm of urinary bladder, unspecified site (CMS/HCC) (Primary Dx) 03/02/2025 External Device Data STL ABSTRACTION Provider, Abstract 03/01/2025 Orders Only [facility] Oncology and Hematology [facility] [address] [place] [phone] Dyllan Friedman MD Malignant neoplasm of urinary bladder, unspecified site (CMS/HCC) (Primary Dx) 02/23/2025 Orders Only [facility] Oncology [facility] Hematology [facility] [address] [place] [address] Dyllan Friedman MD Malignant neoplasm of urinary bladder, unspecified site (CMS/HCC) (Primary Dx) 02/22/2025 Refill [facility] Oncology [facility] Hematology [facility] [address] [place] [address] Dyllan Friedman MD Malignant neoplasm of urinary bladder, unspecified site (CMS/HCC) (Primary Dx) 02/02/2025 External Device Data STL ABSTRACTION Provider, Abstract 01/05/2025 External Device Data ST[place] ABSTRACTION Provider, Abstract 01/05/2025 External Device Data [place] ABSTRACTION Provider, Abstract 01/05/2025 External Device Data ST[place] ABSTRACTION Provider, Abstract 01/01/2025 11:00 AM CDT Office Visit [facility] Oncology [facility] [address] [place] [address] Dyllan Friedman MD Malignant neoplasm of urinary [...] Description 03/29/2025 9:00 AM CDT Office Visit [facility] Oncology and Hematology - [place] [address] [facility] [address] [place] [address] Dyllan Friedman MD [address] [facility] [address] [place] [address] Health Maintenance Due Date Last [...] Resu lt from Last 3 Months Insurance [facility] [id number]
--- OUTSIDE RECORDS SUMMARY | 2025-03-25 07:33 | XMS_ITS | Encounter Summary ---
Author Organization [facility] Address [address] [place] [address] Care Team Providers Care Advocacy Director Name Role Phone Mikel Shepard MD Unavailable [phone] Jazmin Abel MD Primary Care Provider [phone] David Felix MD Unavailable Raya Lozoya PA-C Primary Care Provider [phone] Encounter Details Date Type Department Care Team (Late st Contact Info) Description 07/19/2017 Abstract [facility] at [address] [address] Mallory Jackson MA Social History [...] on filedocumented in this encounter Care Teams Advocacy Director Relationship Specialty Start Date End Date Jazmin Abel MD [facility] [place] [address] PCP - General FAMILY PRACTICE 03/30/19 12/09/24 Raya Lozoya PAMarileeC [address] [place] [phone] PCP - General PHYSICIAN CHANNELER OUTSOLE 12/10/24 Mikel Shepard MD [place] Juvenile Justice Officer CARDIOVASCULAR DISEASE 06/18/17 04/01/18 David Felix MD Three [facility]. [facility] [address] [place] [address] [place] Juvenile Justice Officer INTERVENTIONAL CARDIOLOGY 06/17/19 documented as of this encounter
--- OUTSIDE RECORDS SUMMARY | 2025-03-25 07:33 | XMS_ITS | Clinical Summary ---
Author Organization [facility] Address [address] [place] [address] Care Team Providers Care Plug Cutting Machine Operator Name Role Phone David Felix MD Unavailable Raya Lozoya PA-C Primary Care Provider [phone] Allergies No known active allergies Medications INCRUSE ELLIPTA 62.5 MCG/INH AEROSOL POWDER, BREATH ACTIVATEDIndica tions:Pulmonary emphysema (CMS/HCC HHS/HCC) INHALE 1 PUFF BY MOUTH ONCE DAILY 30 each 6 09/04/2018 Active albuterol sulfate HFA (VENTOLIN HFA) 108 (90 Base) MCG/ACT inhalerIndicati ons:Pulmonary emphysema ([facility]/HCC HHS/HCC) Inhale 2 puffs into the lungs every 6 (six) hours as needed for Wheezing. 1 Inhaler 12/08/2018 Active aspirin 81 MG tablet Take 1 tablet (81 mg total) by mouth daily. 11/08/2014 Active vitamin D2, ergocalciferol, 81532 UNITS capsule Take 1 capsule (50,000 Units [...] AEROSOL POWDER, BREATH ACTIVATEDIndica tions:Centrilob ular emphysema ([facility]) Inhale 1 puff into the lungs 2 (two) times a day. 1 each 6 07/02/2019 Active Active Problems Problem Noted Date Diagnosed Date Cigarette nicotine dependence in remission 03/30 KELLI (obstructive sleep apnea) 10/25/2017 Pulmonary nodule 10/25/2017 Pulmonary emphysema ([facility]) 10/25/2017 Environmental and seasonal allergies 07/25/2017 Excessive daytime sleepiness 07/25/2017 GERD (gastroesophageal reflux disease) 7 SOB (shortness of breath) on exertion 07/25/2017 Paraseptal emphysema ([facility]) 7 Aortic atherosclerosis 07/19/2017 Precordial pain 07/19/2017 Syncope 07/19/2017 Former smoker 06/21/2017 Centrilobular emphysema ([facility]) 2016 Heart murmur 06/21/2017 Marijuana use 06/21/2017 [...] this topic Medical Devices Implanted Type Area Religious Healer Device Identifier Shelf Expiration Date Model / Serial / Lot Ureteral Stent-12/11/19 25 Implanted:Qt y: 1 on 12/10/2024 by Damian Duarte MD Stent Left: Ureter moneymeets RUPA 12/09/2026 [id number] / / [id number] Procedures Procedure Name Priority Date/Time Associated Diagnosis Comments CT LUNG SCREENING Routine 12/22/2021 12: 26 PM CDT Nicotine dependence, cigarettes, in remission LIPID PANEL Routine 08/07/2017 9:50 AM CONSTRUCTION SUPERVISOR Chest pain SOB (shortness of breath) CT CHEST WO CON Routine 07/02/2017 10:10 AM CONSTRUCTION SUPERVISOR Abnormal chest x-ray HEPATITIS A,B,& C Routine 10/08/2014 12: 10 PM CONSTRUCTION SUPERVISOR from Last 3 Months or Most Recently [...] around 12/22/2022). Thank you for choosing the [facility]'s Lung Screening Program. Referred By: [...] or around12/22/2022). Thank you for choosing the [facility]'s Lung ScreeningProgram. Referred By: RAYA LOZOYA Interpreted By: Monty You MD, 12/28/2021 7:30 PM us Raya Lozoya PA-C CT Final Resu lt * (ABNORMAL) LIPID PANEL (08/07/2017 9:50 AM CONSTRUCTION SUPERVISOR) CHOLESTEROL 185 <200 MG/DL 08/07/2017 11:00 AM CONSTRUCTION SUPERVISOR [facility] TRIGLYCERIDES 66 <150 MG/DL 08/07/2017 11:00 AM [facility] HDL 47 >40.0 MG/DL 08/07/2017 11:00 AM [facility] LDL (CALCULATED) 124.8(H) <100 MG/L 08/07/20 17 11:00 AM [facility] NON HDL CHOLESTEROL 138(H) <130 MG/DL 08/07/2017 11:00 AM [facility] CHOL/HDL RATIO 3.9 0.0 - 4.5 08/07/2017 11:00 AM [facility] VLDL CALCULATION 13 5 - 55 MG/DL 08/07/2017 11:00 AM [facility] LIPID INTERPRETATION 08/07/2017 11:00 AM [facility] Comment: [facility] CONCENSUS REPORT RECOMMENDATIONS: ADULT CHILD LOW RISK: CHOLESTEROL <200 <170 TRIGLYCERIDE <150 --- HDL >=60 --- LDL <100 <110 BORDERLINE: CHOLESTEROL 200-239 170-199 TRIGLYCERIDE 150-199 --- HDL 40-59 --- LDL 100-159 110-129 HIGH RISK: CHOLESTEROL >=240 >=200 TRIGLYCERIDE >=200 --- HDL <40 --- LDL >=160 >=130 08/07/2017 9:50 AM CONSTRUCTION SUPERVISOR Mikel Shepard MD LABORATORY Final Result [facility] [address] [place] [address], * CT CHEST WO CON (07/02/2017 10:10 AM CONSTRUCTION SUPERVISOR) Anatomical Region Laterality Modality Chest Computed Tomogra phy 07/02/2017 10:2 1 AM CONSTRUCTION SUPERVISOR Impressions 07/02/2017 10:46 AM CONSTRUCTION SUPERVISOR =====IMPRESSION:===== 1. Nodularity of the pleura particularly [...] of bowel involvement. Narrative 07/02/2017 10:46 AM CONSTRUCTION SUPERVISOR EXAMINATION: CT Chest without contrast EXAM DATE/TIME: [...] * HEPATITIS A,B,& C (10/08/2014 12:10 PM CONSTRUCTION SUPERVISOR) HAV IGM NON-REACTI VE NR [facility] TO EPIC CONVERSION HEPATITIS B SURFACE AG NON-REACTI VE NR [facility] TO EPIC CONVERSION HEP B SURFACE AB NON-REACTI VE [facility] TO EPIC CONVERSION HEP B CORE TOTAL AB NON-REACTI VE NR [facility] TO EPIC CONVERSION HEPATITIS C AB NON-REACTI VE NR [facility] TO EPIC CONVERSION Comment: Result Comment: TESTING PERFORMED AT [facility], A MEMBER OF THE [facility]. 10/08/2014 12:1 0 PM CONSTRUCTION SUPERVISOR 10/08/2014 12:10 PM CONSTRUCTION SUPERVISOR Narrative [facility] TO EPIC CONVERSION - 10/11/2014 5:34 PM CONSTRUCTION SUPERVISOR 13Oct2014 7:23AM by Donovan Saba: Mr Tammie, [...] Most Recently Relevant to Health Maintenance Insurance [facility] Care Teams Plug Cutting Machine Operator Relationship Specialty Start Date End Date Raya Lozoya PAMarileeC [address] [place] [address] PCP - General PHYSICIAN LONG HAUL TRUCK DRIVER 12/10/24 David Felix MD [facility] [address] [place], [place] [id number] [place] Phone Circuit Operator INTERVENTIONAL CARDIOLOGY 06/17/19
--- OUTSIDE RECORDS SUMMARY | 2025-03-25 07:34 | XMS_ITS | Clinical Summary ---
Author Organization [facility] Address [address] [place] [address] Care Team Providers Care Texturing Machine Fixer Name Role Phone Raya Lozoya Primary Care Provider [phone] Allergies No known active allergies Medications alendronate [...] mcg/actuation inhalerIndicati ons:ILD (interstitial lung disease) ([facility]),Chronic obstructive pulmonary disease, unspecified COPD type ([facility]) Inhale 2 puffs every 6 (six) [...] on file Legal Sex Male 9:52 AM LABORER CHEESEMAKING Gender Identity Not on file Sexual Orientation Not on file Occupation Industry Job Start Date Job End Date disabled Not on file Not on file Not on file Obstetrics History Last Filed Vital Signs Vital Sign Reading Time Taken Comments Blood Pressure 117/66 09/07/2024 1:50 PM LABORER CHEESEMAKING Pulse 54 09/07/2024 1:50 PM LABORER CHEESEMAKING Temperature 36.5 C (97.7 F) 04/04/2016 3:05 PM CDT Respiratory Rate 18 09/07/2024 1:50 PM LABORER CHEESEMAKING Oxygen Saturation 98% 09/07/2024 1:50 PM LABORER CHEESEMAKING Inhaled Oxygen Concentration - - Weight 92.1 kg (203 lb) 09/07/2024 1:50 PM LABORER CHEESEMAKING Height 185.4 cm (6' 1) 09/07/2024 1:50 PM LABORER CHEESEMAKING Body Mass Index 26.78 09/07/2024 1:50 PM LABORER CHEESEMAKING Plan of Treatment Health Maintenance Due Date [...] signed by Alessio RICHARD T: Report ID: [id number] Reading Location: [place] [address] Procedure Note Alessio Vernon MD - 11/13/2024 [...] signed by Alessio RICHARD T: Report ID: [id number] Reading Location: [place] [address] Stacia Anthony MD IM CT PROCEDURES Final Resul t from Last 3 Months or Most Recently Relevant to Health Maintenance Insurance [facility] MEDICARE ADVANTAGE Care Teams Texturing Machine Fixer Relationship Specialty Start Date End Date Raya Lozoya PA [facility] [place] [address] PCP - General Physician Ergonomics Technician 01/09/22
--- OUTSIDE RECORDS SUMMARY | 2025-03-25 07:34 | XMS_ITS | Encounter Summary ---
Author Organization [facility] Facility Care Team Providers Care Betting Clerks Name Role Phone Jazmin Abel MD Primary Care Provider [phone] Raya Lozoya Primary Care Provider [phone] Encounter Details Date Type Department Care Team (Latest Contact Info) Description 06/26/2018 Orders Only [facility] CLINCONV ProviderCameron MD [address] [place] [id number] Social History Tobacco Use Types Packs/Day Years Used Date Smoking Tobacco: Never Assessed Sex and Gender Information Value Date Recorded Sex Assigned at Not on file Legal Sex Male 9:52 AM SCREW MACHINE OPERATOR SINGLE SPINDLE Gender Identity Not on file Sexual Orientation Not on file documented as of this encounter Plan of Treatment Not on file documented as of this encounter Procedures Procedure Name Priority Date/Time Associated Diagnosis Comments CARDIOLOGY REPORT 07/08/2018 12: 00 AM SCREW MACHINE OPERATOR SINGLE SPINDLE documented in this encounter Results * CARDIOLOGY REPORT (07/08/2018 12:00 AM SCREW MACHINE OPERATOR SINGLE SPINDLE) Anatomical Region Laterality Modality Other Narrative 07/08/2018 12:00 AM SCREW MACHINE OPERATOR SINGLE SPINDLE Ordered by an unspecified provider. Historical Provider [facility] Final Result documented in this encounter Visit Diagnoses Not on filedocumented in this encounter Care Teams Betting Clerks Relationship Specialty Start Date End Date Jazmin Abel MD PCP - General Family Medicine 06/12/18 01/08/22 Raya Lozoya PA [facility] [place] [address] PCP - General Physician Door Liner 01/09/22 documented as of this encounter
--- OUTSIDE RECORDS SUMMARY | 2025-03-25 07:34 | XMS_ITS | Encounter Summary ---
Author Organization [facility] Facility Care Team Providers Care Supervisor Burling And Joining Name Role Phone Jazmin Abel MD Primary Care Provider [phone] Raya Lozoya Primary Care Provider [phone] Encounter Details Date Type Department Care Team (Latest Contact Info) Description 04/04/2016 Orders Only [facility] CLINCONV ProviderCameron MD [address] [place] [address] Social History Tobacco Use Types Packs/Day Years Used Date Smoking Tobacco: Never Assessed Sex and Gender Information Value Date Recorded Sex Assigned at Not on file Legal Sex Male 9:52 AM CONSTRUCTION MANAGER Gender Identity Not on file Sexual [...] on filedocumented in this encounter Care Teams Supervisor Burling And Joining Relationship Specialty Start Date End Date Jazmin Abel MD PCP - General Family Medicine 06/12/18 01/08/22 Raya Lozoya PA [address] [place] [id number] PCP - General Physician Acoustical Tile Drill Press Operator 01/09/22 documented as of this encounter
--- OUTSIDE RECORDS SUMMARY | 2025-03-25 07:34 | XMS_ITS | Encounter Summary ---
Author Organization [facility] Facility Care Team Providers Care Nuclear Monitoring Technician Name Role Phone Jazmin Abel MD Primary Care Provider [phone] Raya Lozoya Primary Care Provider [phone] Encounter Details Date Type Department Care Team (Latest Contact Info) Description 07/28/2017 Orders Only [facility] CLINCONV ProviderCameron MD [address] [place] [address] Social History Tobacco Use Types Packs/Day Years Used Date Smoking Tobacco: Never Assessed Sex and Gender Information Value Date Recorded Sex Assigned at Not on file Legal Sex Male 9:52 AM IDENTITY ACCESS MANAGEMENT ARCHITECT Gender Identity Not on file Sexual Orientation Not on file documented as of this encounter Plan of Treatment Not on file documented as of this encounter Procedures Procedure Name Priority Date/Time Associated Diagnosis Comments CARDIOLOGY REPORT 07/01/2018 12: 00 AM IDENTITY ACCESS MANAGEMENT ARCHITECT documented in this encounter Results * CARDIOLOGY REPORT (07/01/2018 12:00 AM IDENTITY ACCESS MANAGEMENT ARCHITECT) Anatomical Region Laterality Modality Other Narrative 07/01/2018 12:00 AM IDENTITY ACCESS MANAGEMENT ARCHITECT Ordered by an unspecified provider. Historical Provider [facility] PHIL R[facility]VI Final Result documented in this encounter Visit Diagnoses Not on filedocumented in this encounter Care Teams Nuclear Monitoring Technician Relationship Specialty Start Date End Date Jazmin Abel MD PCP - General Family Medicine 06/12/18 01/08/22 Raya Lozoya PA [address] [place] [address] PCP - General Physician Dry Room Operator 01/09/22 documented as of this encounter
[2025-03-25] MEDS: LACTATED RINGERS 1,000 ML 999 ML IV CONT (07:54)
[2025-03-25 07:59] LABS: Hematocrit 34.1 % (42.0-52.0); Hemoglobin 11.1 g/dL (14.0-18.0); Immature Granulocyte Percent A 1.0 % (0-0.5); Lymphocytes Absolute Auto 0.32 K/mm3 (0.9-3.2); Mean Corpuscular HGB Conc 32.6 g/dl (32-36); Mean Corpuscular Hemoglobin 34.4 pg (26-34); Mean Corpuscular Volume 105.6 fl (80-100); Nucleated Red Blood Cells Absolute Auto 0.000 K/mm3 (0.0-0.012); Nucleated Red Blood Cells Perc 0.0 % (0.0-0.2); Platelet Count Result 237 k/mm3 (150-375); Red Blood Count 3.23 M/mm3 (4.6-6.20); White Blood Count 6.2 K/mm3 (4.5-10.0)
--- NOTE | 2025-03-25 08:00 | ED_ITS ---
HPI - General Adult General Chief complaint: Arrhythmia/Palpitations Stated complaint: afib rvr Time Seen by Provider: 03/25/25 07:15 History of Present Illness HPI narrative: This is a 69-year-old male history of AFib presenting for AFib with RVR. Patient is undergoing treatment for bladder cancer. He was scheduled for urologic procedure this morning. While in preop he developed AFib RVR with chest pain. Patient says he is having left-sided chest pressure in his axilla since yesterday. He also notes dyspnea on exertion although that is chronic. Patient states he has not been eating and drinking very well since he has been undergoing radiation. He is not on anticoagulation for his AFib due to a low chads Vasc score. Related Data Home Medications ?Medication ?Instructions ?Recorded ?Confirmed ?Last Taken ?Type ergocalciferol (vitamin D2) 1,250 1,250 mcg PO WEEKLY 02/09/21 03/15/25 11/28/24 History mcg (50,000 unit) capsule nitroglycerin 0.4 mg sublingual 0.4 mg sublingual Q5M PRN Chest 02/09/21 03/15/25 Unknown History tablet Pain vitamin B12 0.5 mg-folic acid 1 mg 1 tablet PO DAILY 02/09/21 03/15/25 01/14/25 History tablet aspirin 325 mg tablet,delayed 325 mg PO DAILY 12/20/21 03/15/25 01/10/25 History release atorvastatin 40 mg tablet 40 mg PO DAILY 12/27/21 03/15/25 01/17/25 History tamsulosin 0.4 mg capsule 0.8 mg PO QAM 02/18/23 03/15/25 01/17/25 History albuterol sulfate 90 mcg/actuation 2 puff inhalation Q6H PRN 12/02/24 03/15/25 01/18/25 History aerosol inhaler shortness of breath or wheezing budesonide-formoterol HFA 160 2 puff inhalation DAILY 12/02/24 03/15/25 01/18/25 History mcg-4.5 mcg/actuation aerosol inhaler (Symbicort) cholecalciferol (vitamin D3) 50 50 mcg PO DAILY 03/15/25 03/22/25 Unknown History mcg (2,000 unit) capsule Allergies Allergy/AdvReac Type Severity Reaction Status Date / Time No Known Allergies Allergy Verified 03/25/25 07:17 [facility] Past Medical History Medical History Emphysema lung Acute arthritis Rheumatoid osteoperiostitis Afib Surgical History Surgical History History of surgery on arm History of shoulder surgery Family History Family History Sibling Heart disease Skin cancer Social History Social History Smoking packs per day: 1 Smoking cigarettes per day: 20.0 Years smoked: 45 Smoking pack-years: 45.00 Smoking status: Former smoker Tobacco type: cigarettes Second hand tobacco smoke exposure: No Smoking end date: 02/26/25 Alcohol intake: former Drinks per week: 4 Alcohol use details: QUIT 2021 4-5 BEERS DAILY Substance use: current Substance use type: marijuana Other substance usage details: daily use Last use: 11/30/24 Do You Feel Safe in your Home?: Yes Lack of Transportation: No Lack of Food: Never True Current Housing: I Have Housing Concerned About Future Housing: No Difficulty Paying Gas/Electric Bills: No Difficulty Paying for Meds: No Currently Unemployed: No Education: High School Diploma/GED Difficulty w/ Childcare or Family Care: No Living arrangements: alone Gender identity (if verbalized by the patient): Male Spiritual care concerns: No Exam 2 Narrative: APPEARANCE: No apparent distress. Head: atraumatic. EYES: EOMI, NOSE: Atraumatic NECK: Trachea midline RESPIRATORY: No increased rate of breathing clear to auscultation CARDIOVASCULAR: Tachycardic, regular, no peripheral edema ABDOMINAL: Non-distended soft nontender MUSCULOSKELETAl: No obvious deformities NEURO: Alert. Moving 4/4 extremities SKIN:: Warm, dry. Normal color PSYCHIATRIC: Normal affect Course Vital Signs Vital signs: Vital Signs Temperature 97.6 F 03/25/25 07:17 Pulse Rate 154 H 03/25/25 07:17 Respiratory Rate 20 03/25/25 07:17 Blood Pressure 105/65 03/25/25 07:17 Pulse Oximetry 100 03/25/25 07:17 Oxygen Delivery Room Air 03/25/25 07:17 Temperature 97.6 F 03/25/25 07:17 Pulse Rate 104 H 03/25/25 10:39 Respiratory Rate 21 H 03/25/25 10:24 Blood Pressure 97/66 L 03/25/25 10:39 Pulse Oximetry 98 03/25/25 10:24 Oxygen Delivery Room Air 03/25/25 07:17 Medical Decision Making MDM Narrative Medical decision making narrative: -Course: 69-year-old male presenting with AFib with RVR. Received a dose of diltiazem with improvement in heart rate, however his blood pressures then became soft. Patient given 1 L normal saline. Patient remained in AFib with RVR was started on amiodarone infusion w/ rate control Patient's blood pressures remain soft although review of the EMR shows that patient's blood pressure typically runs in the 90s-100s. Chads Vasc is 1. No AC at this time. CT PE negative for PE. It shoed some small cell ground-glass opacities. However Patient does not have any symptoms of pneumonia such as fevers, elevated white count, shortness of breath. Continue to monitor. Patient will be placed in the IMU for further management of his AFib with RVR. Dr. Carlson was consulted. Consult placed in the EMR for Dr. Foster. -DDX includes but is not limited to: AFib with RVR, PE, pneumonia, dehydration -Co-morbidities complicating care: Bladder cancer, AFib Vital Signs Vital Signs: Vital Signs Temperature 97.6 F 03/25/25 07:17 Pulse Rate 154 H 03/25/25 07:17 Respiratory Rate 20 03/25/25 07:17 Blood Pressure 105/65 03/25/25 07:17 Pulse Oximetry 100 03/25/25 07:17 Oxygen Delivery Room Air 03/25/25 07:17 Temperature 97.6 F 03/25/25 07:17 Pulse Rate 104 H 03/25/25 10:39 Respiratory Rate 21 H 03/25/25 10:24 Blood Pressure 97/66 L 03/25/25 10:39 Pulse Oximetry 98 03/25/25 10:24 Oxygen Delivery Room Air 03/25/25 07:17 Lab Data 03/25/25 07:50 03/25/25 07:50 Labs: Lab Results 08/14/25 Range/Units 07:50 WBC 6.2 (4.5-10.0) K/mm3 RBC 3.23 L (4.6-6.20) M/mm3 Hgb 11.1 L (14.0-18.0) g/dL Hct 34.1 L (42.0-52.0) % MCV 105.6 H (80-100) fl MCH 34.4 H (26-34) pg MCHC 32.6 (32-36) g/dl RDW 14.4 (11.5-14.5) % Plt Count 237 (150-375) k/mm3 MPV 10.5 H (7.4-10.4) fl Immature Gran % (Auto) 1.0 H (0-0.5) % Neut % (Auto) 76.6 H (45.5-73.1) % Lymph % (Auto) 5.2 L (18.3-44.2) % Stephens % (Auto) 16.5 H (2.6-8.5) % Eos % (Auto) 0.2 (0-4.4) % Baso % (Auto) 0.5 (0.2-1.2) % Lymph # (Auto) 0.32 L (0.9-3.2) K/mm3 Stephens # (Auto) 1.0 H (0.1-0.6) K/mm3 Eos # (Auto) 0.0 (0-0.3) K/mm3 Baso # (Auto) 0.0 (0.0-0.1) K/mm3 Abs Immat Gran (auto) 0.06 H (0.00-0.031) K/mm3 Absolute Neuts (auto) 4.7 (1.3-6.7) K/mm3 Absolute Nucleated RBC 0.000 (0.0-0.012) K/mm3 Band Neutrophils % Not Reportable Nucleated RBC % 0.0 (0.0-0.2) % Platelet Estimate Adequate (Adequate) Macrocytosis 1+ (NORMAL) Schistocytes None seen PT 14.8 H (11.1-14.7) Seconds INR 1.1 APTT 32.9 (22.3-36.8) Seconds Sodium 132 L (137-145) mmol/L Potassium 4.3 (3.4-5.0) mmol/L Chloride 108 H (98-107) mmol/L Carbon Dioxide 20 L (22-30) mmol/L Anion Gap 4 (4-12) mmol/L BUN 23 H (9-20) mg/dL Creatinine 2.25 H (0.7-1.3) mg/dL Estim Creat Clear Calc 31 ml/min Estimated GFR 29 L (59 - ) Glucose 107 (65-110) mg/dL Calcium 8.8 (8.4-10.2) mg/dL Total Bilirubin 0.4 (0.2-1.3) mg/dL AST 36 (17-59) U/L ALT 25 (6-50) U/L Alkaline Phosphatase 105 (38-126) U/L Troponin I < 0.012 (0.000-0.034) ng/mL NT-Pro-B Natriuret Pep 3030 H (19.9-100) pg/mL Total Protein 6.5 (6.3-8.2) g/dL Albumin 2.7 L (3.5-5.1) g/dL Critical Care Time Critical Care Time Critical Care Time: Yes Total Critical Care Time: 35 Discharge Plan Discharge Clinical Impression: Afib Patient Disposition: Still a Patient Condition: Stable Patient Language: Latvian Prescriptions: No Action metoprolol succinate 50 mg tablet extended release 24 hr 50 mg PO BID Qty: 60 5RF nitroglycerin 0.4 mg tablet, sublingual 0.4 mg sublingual Q5M PRN (Reason: Chest Pain) Rx Instructions: do not exceed 3 doses per episode vitamin [id number] acid 0.5-1 mg tablet 1 tablet PO DAILY Patient Comments: . ergocalciferol (vitamin D2) 1,250 mcg (50,000 unit) capsule 1,250 mcg PO WEEKLY Patient Comments: TAKES ON SATURDAYS aspirin 325 mg tablet,delayed release (DR/EC) 325 mg PO DAILY Patient Comments: HOLD 7 DAYS PRE-OP , TAKE 81MG DAILY WHILE 325MG IS ON HOLD atorvastatin 40 mg tablet 40 mg PO DAILY tamsulosin 0.4 mg capsule 0.8 mg PO QAM albuterol sulfate 90 mcg/actuation HFA aerosol inhaler 2 puff INHALATION Q6H PRN (Reason: shortness of breath or wheezing) Patient Comments: .. budesonide-formoterol [Symbicort] 160-4.5 mcg/actuation HFA aerosol inhaler 2 puff INHALATION DAILY cholecalciferol (vitamin D3) 50 mcg (2,000 unit) capsule 50 mcg PO DAILY Follow-up/Referrals: Devora,STELLA Dos Santos [Primary Care Provider] -
[2025-03-25 08:22] LABS: INR 1.1; Prothrombin Time 14.8 Seconds (11.1-14.7)
[2025-03-25 08:23] LABS: Partial Thromboplastin Time 32.9 Seconds (22.3-36.8)
[2025-03-25 08:30] LABS: Alanine Aminotransferase 25 U/L (6-50); Albumin Level 2.7 g/dL (3.5-5.1); Alkaline Phosphatase 105 U/L (38-126); Anion Gap 4 mmol/L (4-12); Aspartate Amino Transferase 36 U/L (17-59); Bilirubin,Total 0.4 mg/dL (0.2-1.3); Blood Urea Nitrogen 23 mg/dL (9-20); Calcium 8.8 mg/dL (8.4-10.2); Carbon Dioxide 20 mmol/L (22-30); Chloride 108 mmol/L (98-107); Estimated CRCL calculation 31 ml/min; Estimated Glomerular Filt Rate 29; Glucose 107 mg/dL (65-110); Potassium 4.3 mmol/L (3.4-5.0); Sodium 132 mmol/L (137-145); Total Protein 6.5 g/dL (6.3-8.2)
[2025-03-25 08:37] LABS: Macrocytosis 1+ (NORMAL); Schistocytes None Seen
[2025-03-25 08:41] LABS: NT Pro B Type Natriuretic Pept 3030 pg/mL (19.9-100); Troponin I < 0.012 ng/mL (0.000-0.034)
--- NOTE | 2025-03-25 12:19 | P.CONCA_ITS ---
Assessment and Plan Assessment and plan (1) Afib: Code(s): I48.91 - Unspecified atrial fibrillation Status: Acute Assessment and Plan: Chronic. [id number] 1. On aspirin. Rate control with Metoprolol but it got fast this morning. Start Digoxin 125 mcg BID. On Amiodarone drip due to low normal BP. Will stop Amiodarone drip and go with Metoprolol Tartate 25 mg PO every 6 hours. Monitor HR. (2) Dyslipidemia: Code(s): E78.5 - Hyperlipidemia, unspecified Status: Acute Assessment and Plan: On Atorvastatin. History of Present Illness History of Present Illness Consult date/time: 03/25/25 12:19 Reason For Visit: Atrial Fibrillation Narrative: 69 yr old man who is a patient of Dr. Abel presents for a follow up visit regarding his cardiovascular status. He has a history of atrial fibrillation since 1981, COPD, remote smoking, bladder cancer. He was scheduled to have a urologic procedure with replacing stents to his bladder when it was noted his HR was fast at 160's bpm in atrial fibrillation. States when he moves around his HR does increase such as going from one bed to the next this morning. He had left chest pain but it was with movement of his left arm. He is receiving chemo and radiation therapy. States he can walk with his cane up to 1/2 block due to RAMSEY. Denies orthopnea, PND, edema, dizziness, palpitations. Cardiovascular Procedures Process Engineering Technician:: 08/24/17 [facility] cardiac cath: Minimal plaque in LCx otherwise normal coronaries. Echo/MUGA:: 12/03/24 Echo: EF 55-60%, severe biatrial enlargement, mild MR, RVSP 42 mmHg. 09/10/23 Echo: EF 40-45%, severe LAE, RV mod reduced with TAPSE 1.1 cm, mod HIMANSHU, trace AI, mild-mod MR, mild TR, 01/22/22 Echo: EF 40-45%, mild RVE, mod HIMANSHU, severe LAE, mild AI/MR/TR. Electrophysiology:: 12/20/21 EKG: Atrial fib at 108 bpm. 07/02/17 ETT at [facility]: Negative for ischemia; exercised for 3 min, 14 seconds. EKG with atrial fibrillation. Stress Tests:: 01/22/22 Lexiscan myoview: Negative. Review of Systems 2 Review of Systems: All systems reviewed & are unremarkable except as noted in HPI and below Constitutional: Constitutional: Reports as per HPI, Denies chills and Denies fever(s) Cardiovascular: Cardiovascular: Reports as per HPI, Reports chest pain and Denies irregular heart rhythm Respiratory: Respiratory: Reports as per HPI and Denies dyspnea Gastrointestinal: Gastrointestinal: Reports as per HPI and Denies abdominal pain Genitourinary: Genitourinary: Reports as per HPI Musculoskeletal: Musculoskeletal: Reports as per HPI Neurologic: Reports as per HPI, Denies dizziness and Denies syncope [facility] Past Medical History Medical History Emphysema lung Acute arthritis Rheumatoid osteoperiostitis Afib Surgical History Surgical History History of surgery on arm History of shoulder surgery Family History Family History Sibling Heart disease Skin cancer Social History Social History Smoking packs per day: 1 Smoking cigarettes per day: 20.0 Years smoked: 45 Smoking pack-years: 45.00 Smoking status: Former smoker Tobacco type: cigarettes Second hand tobacco smoke exposure: No Smoking end date: 02/26/25 Alcohol intake: former Drinks per week: 4 Alcohol use details: QUIT 2021 4-5 BEERS DAILY Substance use: current Substance use type: marijuana Other substance usage details: daily use Last use: 11/30/24 Do You Feel Safe in your Home?: Yes Lack of Transportation: No Lack of Food: Never True Current Housing: I Have Housing Concerned About Future Housing: No Difficulty Paying Gas/Electric Bills: No Difficulty Paying for Meds: No Currently Unemployed: No Education: High School Diploma/GED Difficulty w/ Childcare or Family Care: No Living arrangements: alone Gender identity (if verbalized by the patient): Male Spiritual care concerns: No Meds Home Medications and Allergies Home Medications ?Medication ?Instructions ?Recorded ?Confirmed ?Type ergocalciferol (vitamin D2) 1,250 1,250 mcg PO WEEKLY 02/09/21 03/15/25 History mcg (50,000 unit) capsule nitroglycerin 0.4 mg sublingual 0.4 mg sublingual Q5M PRN Chest 02/09/21 03/15/25 History tablet Pain vitamin B12 0.5 mg-folic acid 1 mg 1 tablet PO DAILY 02/09/21 03/15/25 History tablet aspirin 325 mg tablet,delayed 325 mg PO DAILY 12/20/21 03/15/25 History release atorvastatin 40 mg tablet 40 mg PO DAILY 12/27/21 03/15/25 History tamsulosin 0.4 mg capsule 0.8 mg PO QAM 02/18/23 03/15/25 History albuterol sulfate 90 mcg/actuation 2 puff inhalation Q6H PRN 12/02/24 03/15/25 History aerosol inhaler shortness of breath or wheezing budesonide-formoterol HFA 160 2 puff inhalation DAILY 12/02/24 03/15/25 History mcg-4.5 mcg/actuation aerosol inhaler (Symbicort) metoprolol succinate 50 mg 50 mg PO BID #60 tabs 01/05/25 03/25/25 Rx tablet,extended release 24 hr cholecalciferol (vitamin D3) 50 50 mcg PO DAILY 03/15/25 03/22/25 History mcg (2,000 unit) capsule Allergies Allergy/AdvReac Type Severity Reaction Status Date / Time No Known Allergies Allergy Verified 03/25/25 07:17 Vital Signs Vital Signs - 24 hr 03/25/25 07:17 03/25/25 07:30 03/25/25 07:42 Temperature 97.6 F Pulse Rate 154 H 113 H 115 H Respiratory Rate 20 13 18 Blood Pressure 105/65 90/68 L Pulse Oximetry 100 96 99 Oxygen Delivery Room Air 03/25/25 08:11 03/25/25 08:31 03/25/25 08:32 Temperature Pulse Rate 105 H 105 H 122 H Respiratory Rate 13 15 14 Blood Pressure 89/65 L 96/70 L Pulse Oximetry 97 99 98 Oxygen Delivery 03/25/25 08:46 03/25/25 08:47 03/25/25 09:01 Temperature Pulse Rate 101 H 114 H 105 H Respiratory Rate 21 H 18 21 H Blood Pressure 91/61 L 91/64 L Pulse Oximetry 95 99 Oxygen Delivery 03/25/25 09:27 03/25/25 09:31 03/25/25 09:36 Temperature Pulse Rate 115 H 118 H 120 H Respiratory Rate 20 13 22 H Blood Pressure 100/62 91/67 L Pulse Oximetry 97 100 99 Oxygen Delivery 03/25/25 09:45 03/25/25 10:00 03/25/25 10:01 Temperature Pulse Rate 120 H 121 H 117 H Respiratory Rate 15 15 23 H Blood Pressure 90/68 L Pulse Oximetry 95 95 Oxygen Delivery 03/25/25 10:21 03/25/25 10:22 03/25/25 10:24 Temperature Pulse Rate 108 H 123 H 111 H Respiratory Rate 14 21 H Blood Pressure 90/68 L 92/69 L Pulse Oximetry 97 98 Oxygen Delivery 03/25/25 10:38 03/25/25 10:39 03/25/25 11:01 Temperature Pulse Rate 98 104 H 101 H Respiratory Rate 13 Blood Pressure 97/66 L 97/66 L 81/65 L Pulse Oximetry 99 Oxygen Delivery 03/25/25 11:15 03/25/25 11:20 Temperature Pulse Rate 97 97 Respiratory Rate 20 Blood Pressure 89/71 L Pulse Oximetry 98 Oxygen Delivery Exam 2 Const: General: cooperative, healthy appearing and comfortable Resp: Auscultation: clear to auscultation bilaterally, no crackles, no rales, no rhonchi and no wheezes Cardio: Rate: tachycardic Rhythm: abnormal rhythm Heart sounds: no murmurs Peripheral pulses: dorsalis pedis present GI: GI Palp: No abdominal tenderness and Yes Soft to palpation Neuro: General: oriented to person, oriented to place and oriented to time Extrem: Right lower extremity: no edema Left lower extremity: no edema Results Labs and Meds 03/25/25 07:50 03/25/25 07:50 Lab results: Cardiac Enzymes 03/25/25 Range/Units 07:50 AST 36 (17-59) U/L Troponin I < 0.012 (0.000-0.034) ng/mL Coagulation 03/25/25 Range/Units 07:50 PT 14.8 H (11.1-14.7) Seconds APTT 32.9 (22.3-36.8) Seconds CBC 03/25/25 Range/Units 07:50 WBC 6.2 (4.5-10.0) K/mm3 RBC 3.23 L (4.6-6.20) M/mm3 Hgb 11.1 L (14.0-18.0) g/dL Hct 34.1 L (42.0-52.0) % Plt Count 237 (150-375) k/mm3 Lymph # (Auto) 0.32 L (0.9-3.2) K/mm3 Andrews # (Auto) 1.0 H (0.1-0.6) K/mm3 Eos # (Auto) 0.0 (0-0.3) K/mm3 Baso # (Auto) 0.0 (0.0-0.1) K/mm3 Comprehensive Metabolic Panel 03/25/25 Range/Units 07:50 Sodium 132 L (137-145) mmol/L Potassium 4.3 (3.4-5.0) mmol/L Chloride 108 H (98-107) mmol/L Carbon Dioxide 20 L (22-30) mmol/L BUN 23 H (9-20) mg/dL Creatinine 2.25 H (0.7-1.3) mg/dL Glucose 107 (65-110) mg/dL Calcium 8.8 (8.4-10.2) mg/dL AST 36 (17-59) U/L ALT 25 (6-50) U/L Alkaline Phosphatase 105 (38-126) U/L Total Protein 6.5 (6.3-8.2) g/dL Albumin 2.7 L (3.5-5.1) g/dL Intake and Output 03/24/25 03/25/25 03/25/25 23:59 07:59 15:59 Intake Total 1100 Balance 1100 Intake: IV 1100 Amiodarone 150 mg/D5w 100 ml 100 150 mg In 100 ml @ 15 MG/MIN 600 mls/hr IV CONT .Q10M ONE Rx #:[id number] Lactated Ringers 1,000 ml @ 999 1000 mls/hr IV CONT .Q1H1M STA Rx#: [id number] Patient Weight 03/25/25 23:59 Weight 76.2 kg
--- OUTSIDE RECORDS SUMMARY | 2025-03-25 13:04 | XMS_ITS | Clinical Summary ---
Author Organization [facility] Address [address] [place] [address] Care Team Providers Care Silverware Supervisor Name Role Phone David Felix MD Unavailable Raya Lozoya PA-C Primary Care Provider [phone] Allergies No known active allergies Medications INCRUSE ELLIPTA 62.5 MCG/INH AEROSOL POWDER, BREATH ACTIVATEDIndica tions:Pulmonary emphysema (CMS/HCC HHS/HCC) INHALE 1 PUFF BY MOUTH ONCE DAILY 30 each 6 09/04/2018 Active albuterol sulfate HFA (VENTOLIN HFA) 108 (90 Base) MCG/ACT inhalerIndicati ons:Pulmonary emphysema ([facility]/HCC HHS/HCC) Inhale 2 puffs into the lungs every 6 (six) hours as needed for Wheezing. 1 Inhaler 12/08/2018 Active aspirin 81 MG tablet Take 1 tablet (81 mg total) by mouth daily. 11/08/2014 Active vitamin D2, ergocalciferol, 76985 UNITS capsule Take 1 capsule (50,000 Units [...] MINUTES IF PAIN PERSIS 3 06/03/2019 Active Fluticasone-Guilehrme meterol (AIRDUO RESPICLICK 113/14) 113-14 MCG/ACT AEROSOL POWDER, BREATH ACTIVATEDIndica tions:Centrilob ular emphysema ([facility]) Inhale 1 puff into the lungs 2 (two) times a day. 1 each 6 07/02/2019 Active Active Problems Problem Noted Date Diagnosed Date Cigarette nicotine dependence in remission 03/30 KELLI (obstructive sleep apnea) 10/25/2017 Pulmonary nodule 10/25/2017 Pulmonary emphysema ([facility]) 10/25/2017 Environmental and seasonal allergies 07/25/2017 Excessive daytime sleepiness 07/25/2017 GERD (gastroesophageal reflux disease) 7 SOB (shortness of breath) on exertion 07/25/2017 Paraseptal emphysema ([facility]) 7 Aortic atherosclerosis 07/19/2017 Precordial pain 07/19/2017 Syncope 07/19/2017 Former smoker 06/21/2017 Centrilobular emphysema ([facility]) 2016 Heart murmur 06/21/2017 Marijuana use [...] this topic Medical Devices Implanted Type Area Sampler Radioactive Waste Device Identifier Shelf Expiration Date Model / Serial / Lot Ureteral Stent-12/11/19 25 Implanted:Qt y: 1 on 12/10/2024 by Damian Duarte MD Stent Left: Ureter Cubby RUPA 12/09/2026 [id number] / / [id number] Procedures Procedure Name Priority Date/Time Associated Diagnosis Comments CT LUNG SCREENING Routine 12/22/2021 12: 26 PM CDT Nicotine dependence, cigarettes, in remission LIPID PANEL Routine 08/07/2017 9:50 AM COLLECTION SYSTEMS CONSULTANT Chest pain SOB (shortness of breath) CT CHEST WO CON Routine 07/02/2017 10:10 AM COLLECTION SYSTEMS CONSULTANT Abnormal chest x-ray HEPATITIS A,B,& C Routine 10/08/2014 12: 10 PM COLLECTION SYSTEMS CONSULTANT from Last 3 Months or Most Recently [...] around 12/22/2022). Thank you for choosing the [facility]'s Lung Screening Program. Referred By: [...] or around12/22/2022). Thank you for choosing the [facility]'s Lung ScreeningProgram. Referred By: RAYA LOZOYA Interpreted By: Monty You MD, 12/28/2021 7:30 PM us Raya Lozoya PA-C CT Final Resu lt * (ABNORMAL) LIPID PANEL (08/07/2017 9:50 AM COLLECTION SYSTEMS CONSULTANT) CHOLESTEROL 185 <200 MG/DL 08/07/2017 11:00 AM COLLECTION SYSTEMS CONSULTANT [facility] TRIGLYCERIDES 66 <150 MG/DL 08/07/2017 11:00 AM [facility] HDL 47 >40.0 MG/DL 08/07/2017 11:00 AM [facility] LDL (CALCULATED) 124.8(H) <100 MG/L 08/07/20 17 11:00 AM [facility] NON HDL CHOLESTEROL 138(H) <130 MG/DL 08/07/2017 11:00 AM [facility] CHOL/HDL RATIO 3.9 0.0 - 4.5 08/07/2017 11:00 AM [facility] VLDL CALCULATION 13 5 - 55 MG/DL 08/07/2017 11:00 AM [facility] LIPID INTERPRETATION 08/07/2017 11:00 AM [facility] Comment: [facility] CONCENSUS REPORT RECOMMENDATIONS: ADULT CHILD LOW RISK: CHOLESTEROL <200 <170 TRIGLYCERIDE <150 --- HDL >=60 --- LDL <100 <110 BORDERLINE: CHOLESTEROL 200-239 170-199 TRIGLYCERIDE 150-199 --- HDL 40-59 --- LDL 100-159 110-129 HIGH RISK: CHOLESTEROL >=240 >=200 TRIGLYCERIDE >=200 --- HDL <40 --- LDL >=160 >=130 08/07/2017 9:50 AM COLLECTION SYSTEMS CONSULTANT Mikel Shepard MD LABORATORY Final Result [facility] [address] [place] [address], * CT CHEST WO CON (07/02/2017 10:10 AM COLLECTION SYSTEMS CONSULTANT) Anatomical Region Laterality Modality Chest Computed Tomogra phy 07/02/2017 10:2 1 AM COLLECTION SYSTEMS CONSULTANT Impressions 07/02/2017 10:46 AM COLLECTION SYSTEMS CONSULTANT =====IMPRESSION:===== 1. Nodularity of the pleura particularly [...] of bowel involvement. Narrative 07/02/2017 10:46 AM COLLECTION SYSTEMS CONSULTANT EXAMINATION: CT Chest without contrast EXAM DATE/TIME: [...] * HEPATITIS A,B,& C (10/08/2014 12:10 PM COLLECTION SYSTEMS CONSULTANT) HAV IGM NON-REACTI VE NR [facility] TO EPIC CONVERSION HEPATITIS B SURFACE AG NON-REACTI VE NR [facility] TO EPIC CONVERSION HEP B SURFACE AB NON-REACTI VE [facility] TO EPIC CONVERSION HEP B CORE TOTAL AB NON-REACTI VE NR [facility] TO EPIC CONVERSION HEPATITIS C AB NON-REACTI VE NR [facility] TO EPIC CONVERSION Comment: Result Comment: TESTING PERFORMED AT [facility], A MEMBER OF THE [facility]. 10/08/2014 12:1 0 PM COLLECTION SYSTEMS CONSULTANT 10/08/2014 12:10 PM COLLECTION SYSTEMS CONSULTANT Narrative [facility] TO EPIC CONVERSION - 10/11/2014 5:34 PM COLLECTION SYSTEMS CONSULTANT 13Oct2014 7:23AM by Donovan Saba: Mr Tammie, [...] Most Recently Relevant to Health Maintenance Insurance [facility] Care Teams Silverware Supervisor Relationship Specialty Start Date End Date Raya Lozoya PAMarileeC [address] [place] [address] PCP - General PHYSICIAN UM NURSE 12/10/24 David Felix MD [facility] [address] [place], [place] [id number] Hannah Inspector Dials INTERVENTIONAL CARDIOLOGY 06/17/19
--- OUTSIDE RECORDS SUMMARY | 2025-03-25 13:04 | XMS_ITS | Encounter Summary ---
Author Organization [facility] Facility Care Team Providers Care Almond Blancher Hand Name Role Phone Jazmin Abel MD Primary Care Provider [phone] Raya Lozoya Primary Care Provider [phone] Encounter Details Date Type Department Care Team (Latest Contact Info) Description 07/28/2017 Orders Only [facility] CLINCONV ProviderCameron MD [address] [place] [address] Social History Tobacco Use Types Packs/Day Years Used Date Smoking Tobacco: Never Assessed Sex and Gender Information Value Date Recorded Sex Assigned at Not on file Legal Sex Male 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 Historical Provider [facility] PHIL RIZVI Final Result documented in this encounter Visit Diagnoses Not on filedocumented in this encounter Care Teams Almond Blancher Hand Relationship Specialty Start Date End Date Jazmin Abel MD PCP - General Family Medicine 06/12/18 01/08/22 Raya Lozoya PA [address] [place] [address] PCP - General Physician Housekeeping Attendant 01/09/22 documented as of this encounter
--- OUTSIDE RECORDS SUMMARY | 2025-03-25 13:04 | XMS_ITS | Clinical Summary ---
Author Organization [facility] Address [address] [facility] [place] [address] Care Team Providers Care Card Processing Clerk Name Role Phone Jazmin Abel MD Primary Care Provider [phone] Source Comments [facility],non-owned Affiliates and Associated Physician Practices is amultiple site organization consisting of ambulatory clinics and hospital sitesin [place], [place], [place] and [place]. This disclosure is being madepursuant to the Care Everywhere program and may not contain all information available regarding this patient. Last updated 18.[facility] Allergies No known active allergies Medications * [...] on file Legal Sex Male 2:43 PM PUBLIC WELFARE WORKER Gender Identity Not on file Sexual Orientation [...] level for you. Interventions: Insurance MEDICARE MEDICARE [facility] MANAGED MEDICARE ADV SELF PAY NO INSURANCE Member Subscriber Plan / Payer (Ef fective for All Dates) Name:Walter Henley Member ID:Not on file Relation to Subscriber:Not on file Name:WALTER HENLEY Subscriber ID:Not on file (Home) Address[address] [facility] [address] [place] [address] Payer ID:Not on file Group ID:Not on file Type:Self Pay Address: [facility] [place] [address] MEDICARE Care Teams Card Processing Clerk Relationship Specialty Start Date End Date Jazmin Abel MD [address] [place] [address] PCP - General 05/14/19
--- OUTSIDE RECORDS SUMMARY | 2025-03-25 13:04 | XMS_ITS | Encounter Summary ---
Author Organization [facility] Address [address] [place] [address] Care Team Providers Care Card Placer Name Role Phone Mikel Shepard MD Unavailable [phone] Jazmin Abel MD Primary Care Provider [phone] David Felix MD Unavailable Raya Lozoya PA-C Primary Care Provider [phone] Encounter Details Date Type Department Care Team (Late st Contact Info) Description 07/19/2017 Abstract [facility] at [address] [address] Mallory Jackson MA Social History [...] filedocumented in this encounter Care Teams Card Placer Relationship Specialty Start Date End Date Jazmin Abel MD [facility] [place] [address] PCP - General FAMILY PRACTICE 03/30/19 12/09/24 Raya Lozoya PAMarileeC [address] [id number] PCP - General PHYSICIAN ENGRAVER HAND SOFT METALS 12/10/24 Mikel Shepard MD [employer] Manager [employer]p CARDIOVASCULAR DISEASE 06/18/17 04/01/18 David Felix MD [facility] [address] [place] [address] Matthews Manager [employer]p INTERVENTIONAL CARDIOLOGY 06/17/19 documented as of this encounter
--- OUTSIDE RECORDS SUMMARY | 2025-03-25 13:04 | XMS_ITS | Encounter Summary ---
Author Organization [facility] Facility Care Team Providers Care Floor Worker Well Service Name Role Phone Jazmin Abel MD Primary Care Provider [phone] Raya Lozoya Primary Care Provider [phone] Encounter Details Date Type Department Care Team (Latest Contact Info) Description 06/26/2018 Orders Only [facility] CLINCONV ProviderCameron MD [address] [place] [address] Social History Tobacco Use Types Packs/Day Years Used Date Smoking Tobacco: Never Assessed Sex and Gender Information Value Date Recorded Sex Assigned at Not on file Legal Sex Male 9:52 AM SOIL BIOLOGY TEACHER Gender Identity Not on file Sexual Orientation Not on file documented as of this encounter Plan of Treatment Not on file documented as of this encounter Procedures Procedure Name Priority Date/Time Associated Diagnosis Comments CARDIOLOGY REPORT 07/08/2018 12: 00 AM SOIL BIOLOGY TEACHER documented in this encounter Results * CARDIOLOGY REPORT (07/08/2018 12:00 AM SOIL BIOLOGY TEACHER) Anatomical Region Laterality Modality Other Narrative 07/08/2018 12:00 AM SOIL BIOLOGY TEACHER Ordered by an unspecified provider. Historical Provider [facility] PHIL RIZVI Final Result documented in this encounter Visit Diagnoses Not on filedocumented in this encounter Care Teams Floor Worker Well Service Relationship Specialty Start Date End Date Jazmin Abel MD PCP - General Family Medicine 06/12/18 01/08/22 Raya Lozoya PA [facility] [place] [address] PCP - General Physician Medical Record Librarians Teacher 01/09/22 documented as of this encounter
--- OUTSIDE RECORDS SUMMARY | 2025-03-25 13:04 | XMS_ITS | Encounter Summary ---
Author Organization 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
--- OUTSIDE RECORDS SUMMARY | 2025-03-25 13:04 | XMS_ITS | Clinical Summary ---
Author Organization [facility] Laila sharma Jw Address [address] [place] [address] Care Team Providers Care Roll Tester Name Role Phone Unavailable Primary Care Provider [...] Department Care Team Description 03/23/2025 Orders Only [facility] On[facility] and Hematology [facility] [address] [place] [id number] Dyllan Friedman MD 03/22/2025 10:15 AM CDT Office Visit [facility] On[facility] and Hematology - [place] [address] [place] [id number] Dyllan Friedman MD Malignant neoplasm of urinary bladder, unspecified site (CMS/HCC) (Primary Dx) 03/15/2025 Orders Only [facility] Hematology [facility] [address] [place] [phone] Dyllan Friedman MD Malignant neoplasm of urinary bladder, unspecified site (CMS/HCC) 03/05/2025 Abstract [facility] Oncology pending sale to [facility] Hematology [facility] [address] [place] [phone] Dyllan Friedman MD 03/04/2025 Orders Only [facility] Hematology [facility] [address] [place] [phone] Dyllan Friedman MD 03/02/2025 8:45 AM CDT Office Visit [facility] Hematology - [place] [address] [place] [phone] Dyllan Friedman MD Malignant neoplasm of urinary bladder, unspecified site (CMS/HCC) (Primary Dx) 03/02/2025 External Device Data STL ABSTRACTION Provider, Abstract 03/01/2025 Orders Only [facility] Hematology [facility] [address] [place] [phone] Dyllan Friedman MD Malignant neoplasm of urinary bladder, unspecified site (CMS/HCC) (Primary Dx) 02/23/2025 Orders Only [facility] Oncology pending sale to [facility] Hematology [facility] [address] [place] [address] Dyllan Friedman MD Malignant neoplasm of urinary bladder, unspecified site (CMS/HCC) (Primary Dx) 02/22/2025 Refill [facility] Oncology pending sale to [facility] Hematology [facility] [address] [place] [address] Dyllan Friedman MD Malignant neoplasm of urinary bladder, unspecified site (CMS/HCC) (Primary Dx) 02/02/2025 External Device Data ST[facility] ABSTRACTION Provider, Abstract 01/05/2025 External Device Data [facility] ABSTRACTION Provider, Abstract 01/05/2025 External Device Data [facility] ABSTRACTION Provider, Abstract 01/05/2025 External Device Data ST[facility] ABSTRACTION Provider, Abstract 01/01/2025 11:00 AM CDT Office Visit [facility] Oncology [facility] [address] [place] [address] Dyllan Friedman MD Malignant neoplasm of urinary [...] Description 03/29/2025 9:00 AM CDT Office Visit [facility] On[facility] and Hematology - [place] [address] [facility] [address] [place] [address] Dyllan Friedman MD [address] [facility] [address] [place] [address] Health Maintenance Due Date Last [...] Resu lt from Last 3 Months Insurance [employer] [id number]
--- OUTSIDE RECORDS SUMMARY | 2025-03-25 13:04 | XMS_ITS | Encounter Summary ---
Author Organization [facility] ANITRA Potter [facility] Address [address] [place] [address] Care Team Providers Care Psychometrician Name Role Phone Unavailable Primary Care Provider Unavailabl e Encounter Details Date Type Department Care Team ([facility] Contact Info) Description 03/23/2025 Orders Only [facility] Oncology and Hematology [facility] [address] [place] [address] Dyllan Friedman MD [address] [place] [phone] Social History Tobacco Use Types Packs/Day [...] Upcoming Encounters Date Type Department Care Team ([facility] Contact Info) Description 03/29/2025 9:00 AM CDT Office Visit [facility] Oncology and Hematology - [place] [address] [place] [address] Dyllan Friedman MD [address] [place] [phone] documented as of this encounter Procedures [...]
--- OUTSIDE RECORDS SUMMARY | 2025-03-25 13:04 | XMS_ITS | Clinical Summary ---
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 Gender Identity Not on file Sexual Orientation Not on file Occupation Industry Job Start Date Job End Date disabled Not on file Not on file Not on file Obstetrics History Last Filed Vital Signs Vital Sign Reading Time Taken Comments Blood Pressure 117/66 09/07/2024 1:50 PM EMERGENCY DEPARTMENT DIRECTOR Pulse 54 09/07/2024 1:50 PM EMERGENCY DEPARTMENT DIRECTOR Temperature 36.5 C (97.7 F) 04/04/2016 3:05 PM CDT Respiratory Rate 18 09/07/2024 1:50 PM EMERGENCY DEPARTMENT DIRECTOR Oxygen Saturation 98% 09/07/2024 1:50 PM EMERGENCY DEPARTMENT DIRECTOR Inhaled Oxygen Concentration - - Weight 92.1 kg (203 lb) 09/07/2024 1:50 PM EMERGENCY DEPARTMENT DIRECTOR Height 185.4 cm (6' 1) 09/07/2024 1:50 PM EMERGENCY DEPARTMENT DIRECTOR Body Mass Index 26.78 09/07/2024 1:50 PM EMERGENCY DEPARTMENT DIRECTOR Plan of Treatment Health Maintenance Due Date [...] signed by Alessio RICHARD T: Report ID: [id number] Reading Location: [place] [address] Procedure Note Alessio Vernon MD - 11/13/2024 [...] signed by Alessio RICHARD T: Report ID: [id number] Reading Location: [place] [address] Stacia Anthony MD IM CT PROCEDURES Final Resul t from Last 3 Months or Most Recently Relevant to Health Maintenance Insurance [facility] MEDICARE ADVANTAGE Care Teams Snack Bar Cashier Relationship Specialty Start Date End Date Raya Lozoya PA [facility] [place] [address] PCP - General Physician Travel Registered Nurse Pacu 01/09/22
--- NOTE | 2025-03-25 15:14 | ADMGEN ---
This patient, Stanislav Cho, was admitted to IMU Room 207-01. Patient/family oriented to hospital policies and general routines including ID bracelet, bed and alarms, visiting hours, pain management, procedures, bathroom and other care routines, personal items, smoking policy, room service/diet, and visiting hours. Information on how to activate the Rapid Response Team has been discussed. Patient/Family are encouraged to report perceived risks to care and to ask questions if they do not understand what they are told or what they should do.
[2025-03-25] MEDS: DIGOXIN TAB 125 MCG TABLET PO (16:30)
--- NOTE | 2025-03-25 16:55 | PM.IMHP ---
H&P: HPI History of Present Illness Date/Time: 03/25/25 16:55 Chief Complaint: A. Fib RVR Narrative: HPI narrative: This is a 69-year-old male history of AFib presenting for AFib with RVR. Patient is undergoing treatment for bladder cancer. He was scheduled for urologic procedure this morning. While in preop he developed AFib RVR with chest pain. Patient says he is having left-sided chest pressure in his axilla since yesterday. He also notes dyspnea on exertion although that is chronic. Patient states he has not been eating and drinking very well since he has been undergoing radiation. He is not on anticoagulation for his AFib due to a low chads Vasc score. patient was found to have A. Fib RVR however patient BP was on soft side, and was started on Amiodarone drip, patient was seen by plant quality manager and transition him to digoxin 125mcg BID and Metoprolol tartrate tab 25mg q6hr, will wean patient of amiodarone drip, will monitor, patient stats he has A. Fib for a longtime under stress as he was in for urologic procedure resulted RVR, patient is not on any anticoagulation due to low CHADES score is low, will monitor and plan. Review of Systems Review of Systems: All systems reviewed & are unremarkable except as noted in HPI and below PMFSH Past Medical History Medical History Emphysema lung Acute arthritis Rheumatoid osteoperiostitis Afib Surgical History Surgical History History of surgery on arm History of shoulder surgery Family History Family History Sibling Heart disease Skin cancer Social History Social History Smoking packs per day: 1 Smoking cigarettes per day: 20.0 Years smoked: 45 Smoking pack-years: 45.00 Smoking status: Former smoker Tobacco type: cigarettes Second hand tobacco smoke exposure: No Smoking end date: 02/26/25 Alcohol intake: former Drinks per week: 4 Alcohol use details: QUIT 2021 4-5 BEERS DAILY Substance use: current Substance use type: marijuana Other substance usage details: daily use Last use: 11/30/24 Do You Feel Safe in your Home?: Yes Lack of Transportation: No Lack of Food: Never True Current Housing: I Have Housing Concerned About Future Housing: No Difficulty Paying Gas/Electric Bills: No Difficulty Paying for Meds: No Currently Unemployed: No Education: High School Diploma/GED Difficulty w/ Childcare or Family Care: No Living arrangements: alone Gender identity (if verbalized by the patient): Male Spiritual care concerns: No Meds Home Medications and Allergies Home Medications ?Medication ?Instructions ?Recorded ?Confirmed ?Type nitroglycerin 0.4 mg sublingual 0.4 mg sublingual Q5M PRN Chest 02/09/21 03/25/25 History tablet Pain vitamin B12 0.5 mg-folic acid 1 mg 1 tablet PO DAILY 02/09/21 03/25/25 History tablet aspirin 325 mg tablet,delayed 325 mg PO DAILY 12/20/21 03/25/25 History release atorvastatin 40 mg tablet 40 mg PO DAILY 12/27/21 03/25/25 History tamsulosin 0.4 mg capsule 0.8 mg PO QAM 02/18/23 03/25/25 History albuterol sulfate 90 mcg/actuation 2 puff inhalation Q6H PRN 12/02/24 03/25/25 History aerosol inhaler shortness of breath or wheezing budesonide-formoterol HFA 160 2 puff inhalation DAILY 12/02/24 03/25/25 History mcg-4.5 mcg/actuation aerosol inhaler (Symbicort) metoprolol succinate 50 mg 50 mg PO BID #60 tabs 01/05/25 03/25/25 Rx tablet,extended release 24 hr cholecalciferol (vitamin D3) 50 50 mcg PO DAILY 03/15/25 03/25/25 History mcg (2,000 unit) capsule Allergies Allergy/AdvReac Type Severity Reaction Status Date / Time No Known Allergies Allergy Verified 03/25/25 07:17 Vital Signs Vital Signs - 24 hr 03/25/25 07:17 03/25/25 07:30 03/25/25 07:42 Temperature 36.4 C Pulse Rate 154 H 113 H 115 H Respiratory Rate 20 13 18 Blood Pressure 105/65 90/68 L Pulse Oximetry 100 96 99 Oxygen Delivery Room Air 03/25/25 08:11 03/25/25 08:31 03/25/25 08:32 Temperature Pulse Rate 105 H 105 H 122 H Respiratory Rate 13 15 14 Blood Pressure 89/65 L 96/70 L Pulse Oximetry 97 99 98 Oxygen Delivery 03/25/25 08:46 03/25/25 08:47 03/25/25 09:01 Temperature Pulse Rate 101 H 114 H 105 H Respiratory Rate 21 H 18 21 H Blood Pressure 91/61 L 91/64 L Pulse Oximetry 95 99 Oxygen Delivery 03/25/25 09:27 03/25/25 09:31 03/25/25 09:36 Temperature Pulse Rate 115 H 118 H 120 H Respiratory Rate 20 13 22 H Blood Pressure 100/62 91/67 L Pulse Oximetry 97 100 99 Oxygen Delivery 03/25/25 09:45 03/25/25 10:00 03/25/25 10:01 Temperature Pulse Rate 120 H 121 H 117 H Respiratory Rate 15 15 23 H Blood Pressure 90/68 L Pulse Oximetry 95 95 Oxygen Delivery 03/25/25 10:21 03/25/25 10:22 03/25/25 10:24 Temperature Pulse Rate 108 H 123 H 111 H Respiratory Rate 14 21 H Blood Pressure 90/68 L 92/69 L Pulse Oximetry 97 98 Oxygen Delivery 03/25/25 10:38 03/25/25 10:39 03/25/25 11:01 Temperature Pulse Rate 98 104 H 101 H Respiratory Rate 13 Blood Pressure 97/66 L 97/66 L 81/65 L Pulse Oximetry 99 Oxygen Delivery 03/25/25 11:15 03/25/25 11:20 03/25/25 11:31 Temperature Pulse Rate 97 97 101 H Respiratory Rate 20 18 Blood Pressure 89/71 L 94/63 L Pulse Oximetry 98 98 Oxygen Delivery 03/25/25 11:46 03/25/25 12:00 03/25/25 12:15 Temperature Pulse Rate 94 95 97 Respiratory Rate 22 H 20 20 Blood Pressure 87/64 L 91/69 L 96/79 L Pulse Oximetry 99 97 100 Oxygen Delivery 03/25/25 12:30 03/25/25 12:45 03/25/25 12:53 Temperature Pulse Rate 98 98 99 Respiratory Rate 20 22 H 19 Blood Pressure 93/72 L 89/65 L 90/65 L Pulse Oximetry 100 100 99 Oxygen Delivery 03/25/25 13:03 03/25/25 13:15 03/25/25 13:30 Temperature Pulse Rate 94 98 95 Respiratory Rate 18 16 16 Blood Pressure 90/62 L 97/66 L 94/71 L Pulse Oximetry 98 98 98 Oxygen Delivery 03/25/25 13:45 03/25/25 14:30 03/25/25 15:34 Temperature 36.4 C L Pulse Rate 98 97 Respiratory Rate 22 H 20 Blood Pressure 101/71 105/71 Pulse Oximetry 100 100 Oxygen Delivery Room Air 03/25/25 16:00 03/25/25 16:00 03/25/25 16:30 Temperature 36.4 C Pulse Rate 140 H 126 H 115 H Respiratory Rate 18 Blood Pressure 82/55 L Pulse Oximetry 99 Oxygen Delivery Exam Narrative: Appears chronically ill Patient is comfortable, NAD HEENT: eyes are clear and none icteric LUNGS:CTA HEART: Irregularly irregular ABD: BS+, Soft and nontender Lower extremities: no edema SKIN: nonjaundiced Neuro: grossly intact. H&P: Results Labs Labs: Short CBC 03/25/25 Range/Units 07:50 WBC 6.2 (4.5-10.0) K/mm3 Hgb 11.1 L (14.0-18.0) g/dL Hct 34.1 L (42.0-52.0) % Plt Count 237 (150-375) k/mm3 BMP 03/25/25 07:50 Sodium 132 L Potassium 4.3 Chloride 108 H Carbon Dioxide 20 L BUN 23 H Creatinine 2.25 H Glucose 107 Calcium 8.8 Cardiac Enzymes 03/25/25 Range/Units 07:50 Troponin I < 0.012 (0.000-0.034) ng/mL Liver Function 03/25/25 Range/Units 07:50 Total Bilirubin 0.4 (0.2-1.3) mg/dL AST 36 (17-59) U/L ALT 25 (6-50) U/L Alkaline Phosphatase 105 (38-126) U/L Albumin 2.7 L (3.5-5.1) g/dL Assessment and Plan Assessment and plan (1) Afib: Code(s): I48.91 - Unspecified atrial fibrillation Status: Acute (2) Atrial fibrillation with RVR: Code(s): I48.91 - Unspecified atrial fibrillation Status: Acute (3) New onset atrial fibrillation: Code(s): I48.91 - Unspecified atrial fibrillation Status: Acute (4) Acute renal failure: Qualifiers: Acute renal failure type: unspecified Qualified Code(s): N17.9 - Acute kidney failure, unspecified Code(s): N17.9 - Acute kidney failure, unspecified Status: Acute (5) Bladder wall thickening: Code(s): N32.89 - Other specified disorders of bladder Status: Acute (6) Mass of bladder: Code(s): N32.89 - Other specified disorders of bladder Status: Acute Plan patient was found to have A. Fib RVR however patient BP was on soft side, and was started on Amiodarone drip, patient was seen by plant quality manager and transition him to digoxin 125mcg BID and Metoprolol tartrate tab 25mg q6hr, will wean patient of amiodarone drip, will monitor, patient stats he has A. Fib for a longtime under stress as he was in for urologic procedure resulted RVR, patient is not on any anticoagulation due to low CHADES score is low, will monitor and plan. Quality VTE Prophylaxis VTE prophylaxis: mechanical ordered Hospitalist MIPS Advance Care Plan I have confirmed that the patient's Advanced Care Plan is present, code status is documented, or surrogate decision maker is listed in patient medical record.: Yes Medication Reconciliation The patient is not eligible for med reconciliation; the patient is in a emergent medical situation where delaying treatment would jeopardize the patients health.: Yes
[2025-03-25] MEDS: METOPROLOL TARTRATE 25 MG TABLET PO (18:03)
--- NOTE | 2025-03-25 18:05 | PC.NURSE ---
Pt's blood pressure was 91/60. Dr Carlson called and notified about patients patients blood pressure due to metoprolol parameters. Dr Carlson ordered for the parameters to be changed and for the metoprolol to be administered. Telephone order put in and medication administered.
[2025-03-25 18:40] LABS: Add Urine Microscopic? YES; Appearance Urine Cloudy (Clear); Glucose Urine UA Negative (Negative); Leukocyte Esterase Ur 2+ LEU/UL (Negative); Need Manual Microscopic Reviewed; Nitrate Urine Negative (Negative); Non Pathogenic Casts 0-2; Specific Grav Ur > 1.045 (1.001-1.035)
[2025-03-25] MEDS: FLUTICASONE/SALMETEROL 115-21 MCG INHALER 1 PUFF 2 PUFF INHALATION (20:52)
[2025-03-25] MEDS: SODIUM CHLORIDE 0.9% IV 1,000 ML 125 ML IV CONT (23:17)
[2025-03-26] VITALS (28 sets, daily range): BP systolic 82–101; BP diastolic 43–65; PULSE 90–144; RESP 10–24; TEMP 36.6–36.9; O2SAT 93–96
[2025-03-26] MEDS: METOPROLOL TARTRATE 25 MG TABLET PO ×2 (05:48→12:06)
--- NOTE | 2025-03-26 07:51 | PM.PNCARD ---
Progress Note: A&P Assessment and Plan (1) Afib: Code(s): I48.91 - Unspecified atrial fibrillation Status: Acute Assessment and Plan: Chronic. [id number] 1. On aspirin. Rate control with Metoprolol but it got fast. Started 03/25/25 evening Digoxin 125 mcg BID. On Amiodarone drip due to low normal BP. Start Metoprolol Tartate 25 mg PO every 6 hours. Start Amiodarone 200 mg PO BID to improve HR control given low BP. Monitor HR. If HR <100 bpm may d/c home from cardiology standpoint. (2) Dyslipidemia: Code(s): E78.5 - Hyperlipidemia, unspecified Status: Acute Assessment and Plan: On Atorvastatin. Subjective Date/time seen: 03/26/25 07:51 Interval history: He feels great. Denies chest pain, sob, dizziness, palpitations. Exam Const: General: cooperative, healthy appearing and comfortable Orientation/consciousness: oriented to person, oriented to place and oriented to time Resp: Auscultation: clear to auscultation bilaterally, no crackles, no rales, no rhonchi and no wheezes Cardio: Rate: tachycardic Rhythm: abnormal rhythm Heart sounds: no murmurs Peripheral pulses: dorsalis pedis present Neuro: General: oriented to person, oriented to place and oriented to time Extrem: Right lower extremity: no edema Left lower extremity: no edema Objective Data Vital Signs Vital Signs: Vital Signs - 24 hr 03/25/25 08:11 03/25/25 08:31 03/25/25 08:32 Temperature Pulse Rate 105 H 105 H 122 H Respiratory Rate 13 15 14 Blood Pressure 89/65 L 96/70 L Pulse Oximetry 97 99 98 Oxygen Delivery 03/25/25 08:46 03/25/25 08:47 03/25/25 09:01 Temperature Pulse Rate 101 H 114 H 105 H Respiratory Rate 21 H 18 21 H Blood Pressure 91/61 L 91/64 L Pulse Oximetry 95 99 Oxygen Delivery 03/25/25 09:27 03/25/25 09:31 03/25/25 09:36 Temperature Pulse Rate 115 H 118 H 120 H Respiratory Rate 20 13 22 H Blood Pressure 100/62 91/67 L Pulse Oximetry 97 100 99 Oxygen Delivery 03/25/25 09:45 03/25/25 10:00 03/25/25 10:01 Temperature Pulse Rate 120 H 121 H 117 H Respiratory Rate 15 15 23 H Blood Pressure 90/68 L Pulse Oximetry 95 95 Oxygen Delivery 03/25/25 10:21 03/25/25 10:22 03/25/25 10:24 Temperature Pulse Rate 108 H 123 H 111 H Respiratory Rate 14 21 H Blood Pressure 90/68 L 92/69 L Pulse Oximetry 97 98 Oxygen Delivery 03/25/25 10:38 03/25/25 10:39 03/25/25 11:01 Temperature Pulse Rate 98 104 H 101 H Respiratory Rate 13 Blood Pressure 97/66 L 97/66 L 81/65 L Pulse Oximetry 99 Oxygen Delivery 03/25/25 11:15 03/25/25 11:20 03/25/25 11:31 Temperature Pulse Rate 97 97 101 H Respiratory Rate 20 18 Blood Pressure 89/71 L 94/63 L Pulse Oximetry 98 98 Oxygen Delivery 03/25/25 11:46 03/25/25 12:00 03/25/25 12:15 Temperature Pulse Rate 94 95 97 Respiratory Rate 22 H 20 20 Blood Pressure 87/64 L 91/69 L 96/79 L Pulse Oximetry 99 97 100 Oxygen Delivery 03/25/25 12:30 03/25/25 12:45 03/25/25 12:53 Temperature Pulse Rate 98 98 99 Respiratory Rate 20 22 H 19 Blood Pressure 93/72 L 89/65 L 90/65 L Pulse Oximetry 100 100 99 Oxygen Delivery 03/25/25 13:03 03/25/25 13:15 03/25/25 13:30 Temperature Pulse Rate 94 98 95 Respiratory Rate 18 16 16 Blood Pressure 90/62 L 97/66 L 94/71 L Pulse Oximetry 98 98 98 Oxygen Delivery 03/25/25 13:45 03/25/25 14:30 03/25/25 15:34 Temperature 97.5 F L Pulse Rate 98 97 Respiratory Rate 22 H 20 Blood Pressure 101/71 105/71 Pulse Oximetry 100 100 Oxygen Delivery Room Air 03/25/25 16:00 03/25/25 16:00 03/25/25 16:30 Temperature 97.6 F Pulse Rate 140 H 126 H 115 H Respiratory Rate 18 Blood Pressure 82/55 L Pulse Oximetry 99 Oxygen Delivery 03/25/25 17:23 03/25/25 18:00 03/25/25 20:00 Temperature 97.9 F Pulse Rate 113 H 115 H Respiratory Rate 16 Blood Pressure 91/60 L 92/55 L Pulse Oximetry 96 Oxygen Delivery 03/25/25 20:00 03/25/25 20:52 03/25/25 20:52 Temperature Pulse Rate 113 H 98 98 Respiratory Rate 18 18 Blood Pressure Pulse Oximetry 94 Oxygen Delivery Room Air 03/25/25 22:00 03/25/25 23:08 03/26/25 00:00 Temperature 98.4 F Pulse Rate 109 H 138 H 103 H Respiratory Rate 20 15 Blood Pressure 78/61 L Pulse Oximetry 94 93 Oxygen Delivery Autopap 03/26/25 00:00 03/26/25 01:08 03/26/25 02:00 Temperature Pulse Rate 125 H 112 H Respiratory Rate Blood Pressure 84/60 L Pulse Oximetry Oxygen Delivery 03/26/25 02:05 03/26/25 04:00 03/26/25 04:00 Temperature 97.9 F Pulse Rate 109 H 119 H Respiratory Rate 16 20 Blood Pressure 90/50 L Pulse Oximetry 96 Oxygen Delivery Autopap 03/26/25 05:47 03/26/25 05:48 03/26/25 06:00 Temperature Pulse Rate 123 H 125 H Respiratory Rate Blood Pressure 97/62 L Pulse Oximetry Oxygen Delivery 03/26/25 07:42 Temperature 98.4 F Pulse Rate 119 H Respiratory Rate 22 H Blood Pressure 87/50 L Pulse Oximetry 96 Oxygen Delivery Intake/Output Intake/Output: Intake & Output 03/23/25 03/24/25 03/25/25 03/26/25 23:59 23:59 23:59 23:59 Intake Total 1340 400 Output Total 225 700 Balance 1115 -300 Meds/Results Medications: Active Medications Generic Name Dose Route Start Last Admin Trade Name Freq PRN Reason Stop Dose Admin Albuterol 2 puff 03/25/25 17:07 Albuterol Sulfate (*Sp) Aerosol 1 Puff INHALATION Q6HRT PRN shortness of breath or wheezing Amiodarone HCl 200 mg 03/26/25 09:00 Amiodarone Hcl 200 Mg Tablet PO BID [facility] Aspirin 325 mg 03/26/25 09:00 Aspirin 325 Mg Enteric Tablet PO DAILY [facility] Atorvastatin Calcium 40 mg 03/26/25 09:00 Atorvastatin 40 Mg Tablet PO DAILY [facility] Cyanocobalamin 500 mcg 03/26/25 09:00 Cyanocobalamin 500 Mcg Tablet PO QAM [facility] Digoxin 125 mcg 03/25/25 17:00 03/25/25 16:30 Digoxin Tab 125 Mcg Tablet PO 125 mcg BID BANG Administration Folic Acid 1 mg 03/26/25 09:00 Folic Acid 1 Mg Tablet PO QAM [facility] Metoprolol Tartrate 25 mg 03/25/25 18:00 03/26/25 05:48 Metoprolol Tartrate 25 Mg Tablet PO 25 mg Q6HR [facility] Administration Nitroglycerin 0.4 mg 03/25/25 17:07 Nitroglycerin Sl 0.4 Mg Tablet SUBLINGUAL Q5M PRN Chest Pain Fluticasone/Salmeterol 2 puff 03/25/25 20:00 03/25/25 20:52 Fluticasone/Salmeterol 115-21 Mcg Inhaler 1 Puff INHALATION 2 puff Q12HRT [facility] Administration Tamsulosin HCl 0.8 mg 03/26/25 09:00 Tamsulosin Hcl 0.4 Mg Capsule PO QAM [facility] Vitamin D 50 mcg 03/26/25 09:00 Cholecalciferol (Vitamin D3) 25 Mcg (1,000 Units) Tablet PO DAILY [facility] Radiology Results: ITS Impressions Chest CTA 03/25/25 09:15 IMPRESSION: 1. No pulmonary embolism identified. 2. Small to moderate size left-sided pleural effusion. 3. Small right-sided pleural effusion 4.There are a few reticular and ground glass opacities scattered throughout both lungs. 5.There is a enlarged 1.5 cm subcarinal lymph node. There is a mildly enlarged 1.1 cm right paratracheal lymph node. A follow up chest CT in 3 months is recommended. 6. Mild to moderate left-sided hydronephrosis. Partially visualized stent in the left renal pelvis. 7. Mild right-sided hydronephrosis. 8. Moderate centrilobular and paraseptal emphysema. 9. Probable old compression fractures of the T8, T11 and L2 vertebral bodies. Chest X-Ray 03/25/25 09:32 IMPRESSION: Interstitial lung disease with bilateral pleural effusions (left greater than right). Focal pleural thickening within the lateral margin of the right upper lobe, largely unchanged from previous radiograph dated 01/18/2025. The remainder of the lungs are clear. Labs Labs: Laboratory Results - last 24 hr 03/25/25 03/25/25 07:50 18:10 WBC 6.2 RBC 3.23 L Hgb 11.1 L Hct 34.1 L MCV 105.6 H MCH 34.4 H MCHC 32.6 RDW 14.4 Plt Count 237 MPV 10.5 H Immature Gran % (Auto) 1.0 H Neut % (Auto) 76.6 H Lymph % (Auto) 5.2 L [place] % (Auto) 16.5 H Eos % (Auto) 0.2 Baso % (Auto) 0.5 Lymph # (Auto) 0.32 L [place] # (Auto) 1.0 H Eos # (Auto) 0.0 Baso # (Auto) 0.0 Abs Immat Gran (auto) 0.06 H Absolute Neuts (auto) 4.7 Absolute Nucleated RBC 0.000 Band Neutrophils % Not Reportable Nucleated RBC % 0.0 Platelet Estimate Adequate Macrocytosis 1+ Schistocytes None seen PT 14.8 H INR 1.1 APTT 32.9 Sodium 132 L Potassium 4.3 Chloride 108 H Carbon Dioxide 20 L Anion Gap 4 BUN 23 H Creatinine 2.25 H Estim Creat Clear Calc 31 Estimated GFR 29 L Glucose 107 Calcium 8.8 Total Bilirubin 0.4 AST 36 ALT 25 Alkaline Phosphatase 105 Troponin I < 0.012 NT-Pro-B Natriuret Pep 3030 H Total Protein 6.5 Albumin 2.7 L Urine Color Yellow Urine Appearance Cloudy H Urine pH 5.5 Ur Specific [place] > 1.045 H Urine Protein 3+ H Urine Glucose (UA) Negative Urine Ketones Negative Ur Blood (Man) 3+ H Urine Nitrate Negative Urine Bilirubin Negative Urine Urobilinogen 1.0 Add Ur Microanalysis Reviewed Leukocyte Esterase Rfl 2+ H Urine RBC >100 H Urine WBC >100 H Ur Squamous Epith Cells None seen Urine Bacteria None seen Urine Casts 0-2
[2025-03-26] MEDS: TAMSULOSIN HCL 0.4 MG CAPSULE 0.8 MG PO (08:37)
[2025-03-26] MEDS: DIGOXIN TAB 125 MCG TABLET PO ×2 (08:37→16:43)
[2025-03-26] MEDS: FOLIC ACID 1 MG TABLET PO (08:37)
[2025-03-26] MEDS: CHOLECALCIFEROL (VITAMIN D3) 25 MCG (1,000 UNITS) TABLET 50 MCG PO (08:38)
[2025-03-26] MEDS: ASPIRIN 325 MG ENTERIC TABLET PO (08:38)
[2025-03-26] MEDS: AMIODARONE HCL 200 MG TABLET PO ×2 (08:38→16:43)
[2025-03-26] MEDS: CYANOCOBALAMIN 500 MCG TABLET PO (08:38)
[2025-03-26] MEDS: ATORVASTATIN 40 MG TABLET PO (08:38)
[2025-03-26] MEDS: MIDODRINE HCL 2.5 MG TABLET PO ×3 (08:42→16:43)
[2025-03-26] MEDS: FLUTICASONE/SALMETEROL 115-21 MCG INHALER 1 PUFF 2 PUFF INHALATION ×2 (08:44→20:06)
--- NOTE | 2025-03-26 18:31 | PM.IMPN ---
Progress Note: A&P Assessment and Plan (1) Afib: Code(s): I48.91 - Unspecified atrial fibrillation Status: Acute (2) Atrial fibrillation with RVR: Code(s): I48.91 - Unspecified atrial fibrillation Status: Acute (3) New onset atrial fibrillation: Code(s): I48.91 - Unspecified atrial fibrillation Status: Acute (4) Acute renal failure: Qualifiers: Acute renal failure type: unspecified Qualified Code(s): N17.9 - Acute kidney failure, unspecified Code(s): N17.9 - Acute kidney failure, unspecified Status: Acute (5) Bladder wall thickening: Code(s): N32.89 - Other specified disorders of bladder Status: Acute (6) Mass of bladder: Code(s): N32.89 - Other specified disorders of bladder Status: Acute Plan patient was found to have A. Fib RVR however patient BP was on soft side, and was started on Amiodarone drip, patient was seen by solar mechanical engineer and transition him to digoxin 125mcg BID and Metoprolol tartrate tab 25mg q6hr, will wean patient of amiodarone drip, will monitor, patient stats he has A. Fib for a longtime under stress as he was in for urologic procedure resulted RVR, patient is not on any anticoagulation due to low CHADES score is low, will monitor and plan. Patient remains clinically stable, his BP is still soft and BP and HR is elevated, will monitor Subjective Date/time seen: 03/26/25 18:31 Interval history: patient was found to have A. Fib RVR however patient BP was on soft side, and was started on Amiodarone drip, patient was seen by solar mechanical engineer and transition him to digoxin 125mcg BID and Metoprolol tartrate tab 25mg q6hr, will wean patient of amiodarone drip, will monitor, patient stats he has A. Fib for a longtime under stress as he was in for urologic procedure resulted RVR, patient is not on any anticoagulation due to low CHADES score is low, will monitor and plan. Patient remains clinically stable, his BP is still soft and BP and HR is elevated, will monitor Review of Systems Review of Systems: All systems reviewed & are unremarkable except as noted in HPI and below Exam Narrative: Appears chronically ill Patient is comfortable, NAD HEENT: eyes are clear and none icteric LUNGS:CTA HEART: Irregularly irregular ABD: BS+, Soft and nontender Lower extremities: no edema SKIN: nonjaundiced Neuro: grossly intact. Objective Data Vital Signs Vital Signs: Vital Signs - 24 hr 03/25/25 20:00 03/25/25 20:00 03/25/25 20:52 Temperature 36.6 C Pulse Rate 115 H 113 H 98 Respiratory Rate 16 18 Blood Pressure 92/55 L Pulse Oximetry 96 94 Oxygen Delivery Room Air 03/25/25 20:52 03/25/25 22:00 03/25/25 23:08 Temperature 36.9 C Pulse Rate 98 109 H 138 H Respiratory Rate 18 20 Blood Pressure 78/61 L Pulse Oximetry 94 Oxygen Delivery 03/26/25 00:00 03/26/25 00:00 03/26/25 01:08 Temperature Pulse Rate 103 H 125 H Respiratory Rate 15 Blood Pressure 84/60 L Pulse Oximetry 93 Oxygen Delivery Autopap 03/26/25 02:00 03/26/25 02:05 03/26/25 04:00 Temperature Pulse Rate 112 H 109 H Respiratory Rate 16 Blood Pressure Pulse Oximetry Oxygen Delivery Autopap 03/26/25 04:00 03/26/25 05:47 03/26/25 05:48 Temperature 36.6 C Pulse Rate 119 H 123 H Respiratory Rate 20 Blood Pressure 90/50 L 97/62 L Pulse Oximetry 96 Oxygen Delivery 03/26/25 06:00 03/26/25 07:42 03/26/25 08:00 Temperature 36.9 C Pulse Rate 125 H 119 H Respiratory Rate 22 H Blood Pressure 87/50 L Pulse Oximetry 96 Oxygen Delivery Room Air 03/26/25 08:00 03/26/25 08:37 03/26/25 08:38 Temperature Pulse Rate 111 H 98 98 Respiratory Rate Blood Pressure Pulse Oximetry Oxygen Delivery 03/26/25 08:46 03/26/25 10:00 03/26/25 10:52 Temperature Pulse Rate 90 105 H Respiratory Rate 18 Blood Pressure 82/43 L Pulse Oximetry Oxygen Delivery 03/26/25 11:43 03/26/25 12:00 03/26/25 12:00 Temperature 36.6 C Pulse Rate 110 H 140 H Respiratory Rate 18 Blood Pressure 95/53 L Pulse Oximetry 93 Oxygen Delivery Room Air 03/26/25 12:06 03/26/25 14:00 03/26/25 16:00 Temperature 36.8 C Pulse Rate 126 H 99 101 H Respiratory Rate 24 H Blood Pressure 88/65 L Pulse Oximetry 95 Oxygen Delivery 03/26/25 16:00 03/26/25 16:00 03/26/25 16:43 Temperature Pulse Rate 121 H 144 H Respiratory Rate Blood Pressure Pulse Oximetry Oxygen Delivery Room Air 03/26/25 16:43 03/26/25 18:00 Temperature Pulse Rate 144 H 103 H Respiratory Rate Blood Pressure Pulse Oximetry Oxygen Delivery Intake/Output Intake/Output: Intake & Output 03/23/25 03/24/25 03/25/25 03/26/25 23:59 23:59 23:59 23:59 Intake Total 1340 1960 Output Total 225 1400 Balance 1115 560 Meds/Results Medications: Active Medications Generic Name Dose Route Start Last Admin Trade Name Freq PRN Reason Stop Dose Admin Albuterol 2 puff 03/25/25 17:07 Albuterol Sulfate (*Sp) Aerosol 1 Puff INHALATION Q6HRT PRN shortness of breath or wheezing Amiodarone HCl 200 mg 03/26/25 09:00 03/26/25 16:43 Amiodarone Hcl 200 Mg Tablet PO 200 mg BID BANG Administration Aspirin 325 mg 03/26/25 09:00 03/26/25 08:38 Aspirin 325 Mg Enteric Tablet PO 325 mg DAILY [facility] Administration Atorvastatin Calcium 40 mg 03/26/25 09:00 03/26/25 08:38 Atorvastatin 40 Mg Tablet PO 40 mg DAILY [facility] Administration Cyanocobalamin 500 mcg 03/26/25 09:00 03/26/25 08:38 Cyanocobalamin 500 Mcg Tablet PO 500 mcg QAM [facility] Administration Digoxin 125 mcg 03/25/25 17:00 03/26/25 16:43 Digoxin Tab 125 Mcg Tablet PO 125 mcg BID [facility] Administration Folic Acid 1 mg 03/26/25 09:00 03/26/25 08:37 Folic Acid 1 Mg Tablet PO 1 mg QAM [facility] Administration Metoprolol Tartrate 25 mg 03/25/25 18:00 03/26/25 16:43 Metoprolol Tartrate 25 Mg Tablet PO Not Given Q6HR [facility]ANG Midodrine 2.5 mg 03/26/25 09:00 03/26/25 16:43 Midodrine Hcl 2.5 Mg Tablet PO 2.5 mg TID BANG Administration Nitroglycerin 0.4 mg 03/25/25 17:07 Nitroglycerin Sl 0.4 Mg Tablet SUBLINGUAL Q5M PRN Chest Pain Fluticasone/Salmeterol 2 puff 03/25/25 20:00 03/26/25 08:44 Fluticasone/Salmeterol 115-21 Mcg Inhaler 1 Puff INHALATION 2 puff Q12HRT [facility] Administration Tamsulosin HCl 0.8 mg 03/26/25 09:00 03/26/25 08:37 Tamsulosin Hcl 0.4 Mg Capsule PO 0.8 mg QAM [facility] Administration Vitamin D 50 mcg 03/26/25 09:00 03/26/25 08:38 Cholecalciferol (Vitamin D3) 25 Mcg (1,000 Units) Tablet PO 50 mcg DAILY [facility] Administration Radiology Results: ITS Impressions Chest CTA 03/25/25 09:15 IMPRESSION: 1. No pulmonary embolism identified. 2. Small to moderate size left-sided pleural effusion. 3. Small right-sided pleural effusion 4.There are a few reticular and ground glass opacities scattered throughout both lungs. 5.There is a enlarged 1.5 cm subcarinal lymph node. There is a mildly enlarged 1.1 cm right paratracheal lymph node. A follow up chest CT in 3 months is recommended. 6. Mild to moderate left-sided hydronephrosis. Partially visualized stent in the left renal pelvis. 7. Mild right-sided hydronephrosis. 8. Moderate centrilobular and paraseptal emphysema. 9. Probable old compression fractures of the T8, T11 and L2 vertebral bodies. Chest X-Ray 03/25/25 09:32 IMPRESSION: Interstitial lung disease with bilateral pleural effusions (left greater than right). Focal pleural thickening within the lateral margin of the right upper lobe, largely unchanged from previous radiograph dated 01/18/2025. The remainder of the lungs are clear. Labs Labs: Laboratory Results - last 24 hr 03/25/25 18:10 Urine Color Yellow Urine Appearance Cloudy H Urine pH 5.5 Ur Specific [place] > 1.045 H Urine Protein 3+ H Urine Glucose (UA) Negative Urine Ketones Negative Ur Blood (Man) 3+ H Urine Nitrate Negative Urine Bilirubin Negative Urine Urobilinogen 1.0 Add Ur Microanalysis Reviewed Leukocyte Esterase Rfl 2+ H Urine RBC >100 H Urine WBC >100 H Ur Squamous Epith Cells None seen Urine Bacteria None seen Urine Casts 0-2 Quality VTE Prophylaxis VTE prophylaxis: mechanical ordered
[2025-03-27] VITALS (29 sets, daily range): BP systolic 86–124; BP diastolic 48–95; PULSE 78–146; RESP 10–20; TEMP 36.4–36.9; O2SAT 92–97
[2025-03-27] MEDS: METOPROLOL TARTRATE 25 MG TABLET PO ×2 (00:04→05:43)
--- NOTE | 2025-03-27 06:52 | ECG_ITS ---
Test Date: 2025-03-27 07:57:19 Measurements Intervals [place] Rate: 108 P: 0 OR: 0 QRS: 16 QRSD: 78 T: 24 QT: 324 QTc: 436 Interpretive Statements ATRIAL FIBRILLATION WITH RAPID VENTRICULAR RESPONSE LOW QRS VOLTAGE IN LIMB LEADS BORDERLINE T WAVE ABNORMALITY- INFERIOR LEADS ABNORMAL ECG Compared to ECG 03/25/2025 07:21:41 HEART RATE HAS DECREASED Electronically Signed On 03-27-2025 08:40:27 CDT by Jorge Alberto Carlson D.O.
--- NOTE | 2025-03-27 08:24 | P.PNCA_ITS ---
Progress Note: A&P Assessment and Plan (1) Afib: Code(s): I48.91 - Unspecified atrial fibrillation Status: Acute Assessment and Plan: Chronic. [id number] 1. On aspirin. Rate control with Metoprolol but it got fast. Stop Amiodarone. Change Metoprolol Succinate 25 mg BID, continue Digoxin 125 mcg BID. Started Midodrine 2.5 mg BID to support BP. If HR around 100 bpm or less may d/c home from cardiology standpoint. F/U with me in 2 weeks. (2) Dyslipidemia: Code(s): E78.5 - Hyperlipidemia, unspecified Status: Acute Assessment and Plan: On Atorvastatin. Subjective Date/time seen: 03/27/25 08:24 Interval history: He feels great. Denies chest pain, sob, dizziness, palpitations. Exam Const: General: cooperative, healthy appearing and comfortable Orientation/consciousness: oriented to person, oriented to place and oriented to time Resp: Auscultation: clear to auscultation bilaterally, no crackles, no rales, no rhonchi and no wheezes Cardio: Rate: tachycardic Rhythm: abnormal rhythm Heart sounds: no murmurs Peripheral pulses: dorsalis pedis present Neuro: General: oriented to person, oriented to place and oriented to time Extrem: Right lower extremity: no edema Left lower extremity: no edema Objective Data Vital Signs Vital Signs: Vital Signs - 24 hr 03/26/25 08:37 03/26/25 08:38 03/26/25 08:46 Temperature Pulse Rate 98 98 90 Respiratory Rate 18 Blood Pressure Pulse Oximetry Oxygen Delivery 03/26/25 10:00 03/26/25 10:52 03/26/25 11:43 Temperature 97.9 F Pulse Rate 105 H 110 H Respiratory Rate 18 Blood Pressure 82/43 L 95/53 L Pulse Oximetry 93 Oxygen Delivery 03/26/25 12:00 03/26/25 12:00 03/26/25 12:06 Temperature Pulse Rate 140 H 126 H Respiratory Rate Blood Pressure Pulse Oximetry Oxygen Delivery Room Air 03/26/25 14:00 03/26/25 16:00 03/26/25 16:00 Temperature 98.2 F Pulse Rate 99 101 H 121 H Respiratory Rate 24 H Blood Pressure 88/65 L Pulse Oximetry 95 Oxygen Delivery 03/26/25 16:00 03/26/25 16:43 03/26/25 16:43 Temperature Pulse Rate 144 H 144 H Respiratory Rate Blood Pressure Pulse Oximetry Oxygen Delivery Room Air 03/26/25 18:00 03/26/25 19:57 03/26/25 20:00 Temperature 98.2 F Pulse Rate 103 H 125 H Respiratory Rate 16 Blood Pressure 101/65 Pulse Oximetry 94 Oxygen Delivery Room Air 03/26/25 20:00 03/26/25 20:09 03/26/25 22:00 Temperature Pulse Rate 106 H 120 H 106 H Respiratory Rate 18 Blood Pressure Pulse Oximetry Oxygen Delivery 03/26/25 23:22 03/26/25 23:24 03/27/25 00:00 Temperature 98.2 F Pulse Rate 108 H Respiratory Rate 10 L 20 Blood Pressure 96/55 L Pulse Oximetry 95 97 Oxygen Delivery Autopap Room Air 03/27/25 00:00 03/27/25 00:00 03/27/25 00:04 Temperature Pulse Rate 94 99 Respiratory Rate Blood Pressure Pulse Oximetry Oxygen Delivery CPAP 03/27/25 01:47 03/27/25 02:00 03/27/25 04:00 Temperature Pulse Rate 90 Respiratory Rate 10 L Blood Pressure Pulse Oximetry Oxygen Delivery Autopap CPAP 03/27/25 04:00 03/27/25 04:00 03/27/25 05:42 Temperature 98.4 F Pulse Rate 86 88 Respiratory Rate 20 Blood Pressure 86/60 L 97/66 L Pulse Oximetry 95 Oxygen Delivery 03/27/25 05:43 03/27/25 06:00 Temperature Pulse Rate 113 H 91 Respiratory Rate Blood Pressure Pulse Oximetry Oxygen Delivery Intake/Output Intake/Output: Intake & Output 03/24/25 03/25/25 03/26/25 03/27/25 23:59 23:59 23:59 23:59 Intake Total 1340 1960 300 Output Total 225 1400 725 Balance 1115 560 -243 Meds/Results Medications: Active Medications Generic Name Dose Route Start Last Admin Trade Name Freq PRN Reason Stop Dose Admin Albuterol 2 puff 03/25/25 17:07 Albuterol Sulfate (*Sp) Aerosol 1 Puff INHALATION Q6HRT PRN shortness of breath or wheezing Aspirin 325 mg 03/26/25 09:00 03/26/25 08:38 Aspirin 325 Mg Enteric Tablet PO 325 mg DAILY [facility] Administration Atorvastatin Calcium 40 mg 03/26/25 09:00 03/26/25 08:38 Atorvastatin 40 Mg Tablet PO 40 mg DAILY [facility] Administration Cyanocobalamin 500 mcg 03/26/25 09:00 03/26/25 08:38 Cyanocobalamin 500 Mcg Tablet PO 500 mcg QAM [facility] Administration Digoxin 125 mcg 03/25/25 17:00 03/26/25 16:43 Digoxin Tab 125 Mcg Tablet PO 125 mcg BID [facility] Administration Folic Acid 1 mg 03/26/25 09:00 03/26/25 08:37 Folic Acid 1 Mg Tablet PO 1 mg QAM [facility] Administration Metoprolol Succinate 25 mg 03/27/25 09:00 Metoprolol Succinate Ext Rel 25 Mg Tabcr PO Q12HR [facility]ANG Midodrine 2.5 mg 03/26/25 09:00 03/26/25 16:43 Midodrine Hcl 2.5 Mg Tablet PO 2.5 mg TID [facility] Administration Nitroglycerin 0.4 mg 03/25/25 17:07 Nitroglycerin Sl 0.4 Mg Tablet SUBLINGUAL Q5M PRN Chest Pain Fluticasone/Salmeterol 2 puff 03/25/25 20:00 03/26/25 20:06 Fluticasone/Salmeterol 115-21 Mcg Inhaler 1 Puff INHALATION 2 puff Q12HRT [facility] Administration Tamsulosin HCl 0.8 mg 03/26/25 09:00 03/26/25 08:37 Tamsulosin Hcl 0.4 Mg Capsule PO 0.8 mg QAM [facility] Administration Vitamin D 50 mcg 03/26/25 09:00 03/26/25 08:38 Cholecalciferol (Vitamin D3) 25 Mcg (1,000 Units) Tablet PO 50 mcg DAILY BANG Administration Radiology Results: ITS Impressions Chest CTA 03/25/25 09:15 IMPRESSION: 1. No pulmonary embolism identified. 2. Small to moderate size left-sided pleural effusion. 3. Small right-sided pleural effusion 4.There are a few reticular and ground glass opacities scattered throughout both lungs. 5.There is a enlarged 1.5 cm subcarinal lymph node. There is a mildly enlarged 1.1 cm right paratracheal lymph node. A follow up chest CT in 3 months is recommended. 6. Mild to moderate left-sided hydronephrosis. Partially visualized stent in the left renal pelvis. 7. Mild right-sided hydronephrosis. 8. Moderate centrilobular and paraseptal emphysema. 9. Probable old compression fractures of the T8, T11 and L2 vertebral bodies. Chest X-Ray 03/25/25 09:32 IMPRESSION: Interstitial lung disease with bilateral pleural effusions (left greater than right). Focal pleural thickening within the lateral margin of the right upper lobe, largely unchanged from previous radiograph dated 01/18/2025. The remainder of the lungs are clear.
[2025-03-27] MEDS: CHOLECALCIFEROL (VITAMIN D3) 25 MCG (1,000 UNITS) TABLET 50 MCG PO (08:32)
[2025-03-27] MEDS: MIDODRINE HCL 2.5 MG TABLET PO ×2 (08:32→12:15)
[2025-03-27] MEDS: ATORVASTATIN 40 MG TABLET PO (08:32)
[2025-03-27] MEDS: DIGOXIN TAB 125 MCG TABLET PO ×2 (08:32→16:17)
[2025-03-27] MEDS: FOLIC ACID 1 MG TABLET PO (08:32)
[2025-03-27] MEDS: CYANOCOBALAMIN 500 MCG TABLET PO (08:32)
[2025-03-27] MEDS: TAMSULOSIN HCL 0.4 MG CAPSULE 0.8 MG PO (08:32)
[2025-03-27] MEDS: ASPIRIN 325 MG ENTERIC TABLET PO (08:33)
[2025-03-27] MEDS: FLUTICASONE/SALMETEROL 115-21 MCG INHALER 1 PUFF 2 PUFF INHALATION ×2 (08:38→21:46)
[2025-03-27 10:08] LABS: Hematocrit 31.0 % (42.0-52.0); Hemoglobin 10.0 g/dL (14.0-18.0); Mean Corpuscular HGB Conc 32.3 g/dl (32-36); Mean Corpuscular Hemoglobin 33.8 pg (26-34); Mean Corpuscular Volume 104.7 fl (80-100); Platelet Count Result 228 k/mm3 (150-375); Red Blood Count 2.96 M/mm3 (4.6-6.20); White Blood Count 6.0 K/mm3 (4.5-10.0)
[2025-03-27 10:28] LABS: Anion Gap 1 mmol/L (4-12); Blood Urea Nitrogen 20 mg/dL (9-20); Calcium 8.4 mg/dL (8.4-10.2); Carbon Dioxide 23 mmol/L (22-30); Chloride 105 mmol/L (98-107); Estimated CRCL calculation 47 ml/min; Estimated Glomerular Filt Rate 45; Glucose 94 mg/dL (65-110); Magnesium 2.1 mg/dL (1.6-2.3); Potassium 4.5 mmol/L (3.4-5.0); Sodium 129 mmol/L (137-145)
--- NOTE | 2025-03-27 15:46 | PM.IMPN ---
Progress Note: A&P Assessment and Plan (1) Afib: Code(s): I48.91 - Unspecified atrial fibrillation Status: Acute (2) Atrial fibrillation with RVR: Code(s): I48.91 - Unspecified atrial fibrillation Status: Acute (3) New onset atrial fibrillation: Code(s): I48.91 - Unspecified atrial fibrillation Status: Acute (4) Acute renal failure: Qualifiers: Acute renal failure type: unspecified Qualified Code(s): N17.9 - Acute kidney failure, unspecified Code(s): N17.9 - Acute kidney failure, unspecified Status: Acute (5) Bladder wall thickening: Code(s): N32.89 - Other specified disorders of bladder Status: Acute (6) Mass of bladder: Code(s): N32.89 - Other specified disorders of bladder Status: Acute Plan patient was found to have A. Fib RVR however patient BP was on soft side, and was started on Amiodarone drip, patient was seen by account advisor and transition him to digoxin 125mcg BID and Metoprolol tartrate tab 25mg q6hr, will wean patient of amiodarone drip, will monitor, patient stats he has A. Fib for a longtime under stress as he was in for urologic procedure resulted RVR, patient is not on any anticoagulation due to low CHADES score is low, will monitor and plan. Patient remains clinically stable, his BP is still soft and and HR is elevated, seen by account advisor and added midodrine 2.5mg BID, stop amiodarone drip and switched of amiodarone 200mg PO BID, still his BP is soft today and HR is high, will monitor and plan. Subjective Date/time seen: 03/27/25 15:46 Interval history: patient was found to have A. Fib RVR however patient BP was on soft side, and was started on Amiodarone drip, patient was seen by account advisor and transition him to digoxin 125mcg BID and Metoprolol tartrate tab 25mg q6hr, will wean patient of amiodarone drip, will monitor, patient stats he has A. Fib for a longtime under stress as he was in for urologic procedure resulted RVR, patient is not on any anticoagulation due to low CHADES score is low, will monitor and plan. Patient remains clinically stable, his BP is still soft and and HR is elevated, seen by account advisor and added midodrine 2.5mg BID, stop amiodarone drip and switched of amiodarone 200mg PO BID, still his BP is soft today and HR is high, will monitor and plan. Review of Systems Review of Systems: All systems reviewed & are unremarkable except as noted in HPI and below Exam Narrative: Appears chronically ill Patient is comfortable, NAD HEENT: eyes are clear and none icteric LUNGS:CTA HEART: Irregularly irregular ABD: BS+, Soft and nontender Lower extremities: no edema SKIN: nonjaundiced Neuro: grossly intact. Objective Data Vital Signs Vital Signs: Vital Signs - 24 hr 03/26/25 16:00 03/26/25 16:00 03/26/25 16:00 Temperature 36.8 C Pulse Rate 101 H 121 H Respiratory Rate 24 H Blood Pressure 88/65 L Pulse Oximetry 95 Oxygen Delivery Room Air 03/26/25 16:43 03/26/25 16:43 03/26/25 18:00 Temperature Pulse Rate 144 H 144 H 103 H Respiratory Rate Blood Pressure Pulse Oximetry Oxygen Delivery 03/26/25 19:57 03/26/25 20:00 03/26/25 20:00 Temperature 36.8 C Pulse Rate 125 H 106 H Respiratory Rate 16 Blood Pressure 101/65 Pulse Oximetry 94 Oxygen Delivery Room Air 03/26/25 20:09 03/26/25 22:00 03/26/25 23:22 Temperature Pulse Rate 120 H 106 H Respiratory Rate 18 10 L Blood Pressure Pulse Oximetry Oxygen Delivery Autopap 03/26/25 23:24 03/27/25 00:00 03/27/25 00:00 Temperature 36.8 C Pulse Rate 108 H Respiratory Rate 20 Blood Pressure 96/55 L Pulse Oximetry 95 97 Oxygen Delivery Room Air CPAP 03/27/25 00:00 03/27/25 00:04 03/27/25 01:47 Temperature Pulse Rate 94 99 Respiratory Rate 10 L Blood Pressure Pulse Oximetry Oxygen Delivery Autopap 03/27/25 02:00 03/27/25 04:00 03/27/25 04:00 Temperature Pulse Rate 90 86 Respiratory Rate Blood Pressure Pulse Oximetry Oxygen Delivery CPAP 03/27/25 04:00 03/27/25 05:42 03/27/25 05:43 Temperature 36.9 C Pulse Rate 88 113 H Respiratory Rate 20 Blood Pressure 86/60 L 97/66 L Pulse Oximetry 95 Oxygen Delivery 03/27/25 06:00 03/27/25 07:45 03/27/25 08:00 Temperature 36.6 C Pulse Rate 91 105 H 86 Respiratory Rate 16 Blood Pressure 124/95 H Pulse Oximetry 96 Oxygen Delivery 03/27/25 08:00 03/27/25 08:32 03/27/25 08:39 Temperature Pulse Rate 93 93 Respiratory Rate 18 Blood Pressure Pulse Oximetry Oxygen Delivery Room Air 03/27/25 08:41 03/27/25 10:00 03/27/25 11:41 Temperature 36.4 C Pulse Rate 93 98 90 Respiratory Rate 18 14 Blood Pressure 86/56 L Pulse Oximetry 95 94 Oxygen Delivery Room Air 03/27/25 12:00 03/27/25 12:00 03/27/25 14:00 Temperature Pulse Rate 86 100 Respiratory Rate Blood Pressure Pulse Oximetry Oxygen Delivery Room Air 03/27/25 14:10 Temperature Pulse Rate Respiratory Rate Blood Pressure 88/56 L Pulse Oximetry Oxygen Delivery Intake/Output Intake/Output: Intake & Output 03/24/25 03/25/25 03/26/25 03/27/25 23:59 23:59 23:59 23:59 Intake Total 1340 2960 1570 Output Total 225 1400 1475 Balance 1115 1560 95 Meds/Results Medications: Active Medications Generic Name Dose Route Start Last Admin Trade Name Freq PRN Reason Stop Dose Admin Albuterol 2 puff 03/25/25 17:07 Albuterol Sulfate (*Sp) Aerosol 1 Puff INHALATION Q6HRT PRN shortness of breath or wheezing Aspirin 325 mg 03/26/25 09:00 03/27/25 08:33 Aspirin 325 Mg Enteric Tablet PO 325 mg DAILY BANG Administration Atorvastatin Calcium 40 mg 03/26/25 09:00 03/27/25 08:32 Atorvastatin 40 Mg Tablet PO 40 mg DAILY BANG Administration Cyanocobalamin 500 mcg 03/26/25 09:00 03/27/25 08:32 Cyanocobalamin 500 Mcg Tablet PO 500 mcg QAM BANG Administration Digoxin 125 mcg 03/25/25 17:00 03/27/25 08:32 Digoxin Tab 125 Mcg Tablet PO 125 mcg BID BANG Administration Folic Acid 1 mg 03/26/25 09:00 03/27/25 08:32 Folic Acid 1 Mg Tablet PO 1 mg QAM BANG Administration Metoprolol Succinate 25 mg 03/27/25 09:00 03/27/25 14:35 Metoprolol Succinate Ext Rel 25 Mg Tabcr PO Not Given Q12HR BANG Midodrine 5 mg 03/27/25 17:00 Midodrine Hcl 2.5 Mg Tablet PO TID BANG Nitroglycerin 0.4 mg 03/25/25 17:07 Nitroglycerin Sl 0.4 Mg Tablet SUBLINGUAL Q5M PRN Chest Pain Fluticasone/Salmeterol 2 puff 03/25/25 20:00 03/27/25 08:38 Fluticasone/Salmeterol 115-21 Mcg Inhaler 1 Puff INHALATION 2 puff Q12HRT BANG Administration Tamsulosin HCl 0.8 mg 03/26/25 09:00 03/27/25 08:32 Tamsulosin Hcl 0.4 Mg Capsule PO 0.8 mg QAM BANG Administration Vitamin D 50 mcg 03/26/25 09:00 03/27/25 08:32 Cholecalciferol (Vitamin D3) 25 Mcg (1,000 Units) Tablet PO 50 mcg DAILY BANG Administration Radiology Results: ITS Impressions Chest CTA 03/25/25 09:15 IMPRESSION: 1. No pulmonary embolism identified. 2. Small to moderate size left-sided pleural effusion. 3. Small right-sided pleural effusion 4.There are a few reticular and ground glass opacities scattered throughout both lungs. 5.There is a enlarged 1.5 cm subcarinal lymph node. There is a mildly enlarged 1.1 cm right paratracheal lymph node. A follow up chest CT in 3 months is recommended. 6. Mild to moderate left-sided hydronephrosis. Partially visualized stent in the left renal pelvis. 7. Mild right-sided hydronephrosis. 8. Moderate centrilobular and paraseptal emphysema. 9. Probable old compression fractures of the T8, T11 and L2 vertebral bodies. Chest X-Ray 03/25/25 09:32 IMPRESSION: Interstitial lung disease with bilateral pleural effusions (left greater than right). Focal pleural thickening within the lateral margin of the right upper lobe, largely unchanged from previous radiograph dated 01/18/2025. The remainder of the lungs are clear. Labs Labs: Laboratory Results - last 24 hr 03/27/25 10:00 WBC 6.0 RBC 2.96 L Hgb 10.0 L Hct 31.0 L MCV 104.7 H MCH 33.8 MCHC 32.3 RDW 14.9 H Plt Count 228 MPV 9.9 Sodium 129 L Potassium 4.5 Chloride 105 Carbon Dioxide 23 Anion Gap 1 L BUN 20 Creatinine 1.54 H Estim Creat Clear Calc 47 Estimated GFR 45 L Glucose 94 Calcium 8.4 Magnesium 2.1 Quality VTE Prophylaxis VTE prophylaxis: mechanical ordered
[2025-03-27] MEDS: MIDODRINE HCL 2.5 MG TABLET 5 MG PO (16:17)
[2025-03-27] MEDS: METOPROLOL SUCCINATE EXT REL 25 MG TABCR PO (17:05)
[2025-03-27] MEDS: METOPROLOL SUCCINATE EXT REL 50 MG TABCR PO (20:03)
[2025-03-28] VITALS (23 sets, daily range): BP systolic 82–98; BP diastolic 42–67; PULSE 82–135; RESP 17–21; TEMP 36.4–36.8; O2SAT 94–96
[2025-03-28 04:09] LABS: Hematocrit 30.3 % (42.0-52.0); Hemoglobin 9.6 g/dL (14.0-18.0); Mean Corpuscular HGB Conc 31.7 g/dl (32-36); Mean Corpuscular Hemoglobin 33.3 pg (26-34); Mean Corpuscular Volume 105.2 fl (80-100); Platelet Count Result 225 k/mm3 (150-375); Red Blood Count 2.88 M/mm3 (4.6-6.20); White Blood Count 5.9 K/mm3 (4.5-10.0)
[2025-03-28 04:28] LABS: Anion Gap 4 mmol/L (4-12); Blood Urea Nitrogen 19 mg/dL (9-20); Calcium 8.2 mg/dL (8.4-10.2); Carbon Dioxide 19 mmol/L (22-30); Chloride 108 mmol/L (98-107); Estimated CRCL calculation 47 ml/min; Estimated Glomerular Filt Rate 45; Glucose 97 mg/dL (65-110); Magnesium 2.0 mg/dL (1.6-2.3); Potassium 4.0 mmol/L (3.4-5.0); Sodium 131 mmol/L (137-145)
[2025-03-28] MEDS: TAMSULOSIN HCL 0.4 MG CAPSULE 0.8 MG PO (08:06)
[2025-03-28] MEDS: FOLIC ACID 1 MG TABLET PO (08:06)
[2025-03-28] MEDS: CYANOCOBALAMIN 500 MCG TABLET PO (08:06)
[2025-03-28] MEDS: ATORVASTATIN 40 MG TABLET PO (08:06)
[2025-03-28] MEDS: ASPIRIN 325 MG ENTERIC TABLET PO (08:06)
[2025-03-28] MEDS: MIDODRINE HCL 2.5 MG TABLET 5 MG PO ×3 (08:07→17:20)
[2025-03-28] MEDS: CHOLECALCIFEROL (VITAMIN D3) 25 MCG (1,000 UNITS) TABLET 50 MCG PO (08:07)
[2025-03-28] MEDS: DIGOXIN TAB 125 MCG TABLET PO ×2 (08:07→17:20)
[2025-03-28] MEDS: METOPROLOL SUCCINATE EXT REL 50 MG TABCR PO ×2 (08:11→21:04)
--- NOTE | 2025-03-28 08:31 | P.PNCA_ITS ---
Progress Note: A&P Assessment and Plan (1) Afib: Code(s): I48.91 - Unspecified atrial fibrillation Status: Acute Assessment and Plan: Chronic. [id number] 1. On aspirin. Rate control with Metoprolol but it got fast. Change Metoprolol Succinate 50 mg BID, continue Digoxin 125 mcg BID. Started Midodrine 5 mg TID to support BP. If HR around 100 bpm or less may d/c home from cardiology standpoint. F/U with me in 2 weeks. (2) Dyslipidemia: Code(s): E78.5 - Hyperlipidemia, unspecified Status: Acute Assessment and Plan: On Atorvastatin. Subjective Date/time seen: 03/28/25 08:31 Interval history: He feels great. Denies chest pain, sob, dizziness, palpitations. Exam Const: General: cooperative, healthy appearing and comfortable Orientation/consciousness: oriented to person, oriented to place and oriented to time Resp: Auscultation: clear to auscultation bilaterally, no crackles, no rales, no rhonchi and no wheezes Cardio: Rate: tachycardic Rhythm: abnormal rhythm Heart sounds: no murmurs Peripheral pulses: dorsalis pedis present Neuro: General: oriented to person, oriented to place and oriented to time Extrem: Right lower extremity: no edema Left lower extremity: no edema Objective Data Vital Signs Vital Signs: Vital Signs - 24 hr 03/27/25 08:32 03/27/25 08:39 03/27/25 08:41 Temperature Pulse Rate 93 93 93 Respiratory Rate 18 18 Blood Pressure Pulse Oximetry 95 Oxygen Delivery Room Air 03/27/25 10:00 03/27/25 11:41 03/27/25 12:00 Temperature 97.6 F Pulse Rate 98 90 Respiratory Rate 14 Blood Pressure 86/56 L Pulse Oximetry 94 Oxygen Delivery Room Air 03/27/25 12:00 03/27/25 14:00 03/27/25 14:10 Temperature Pulse Rate 86 100 Respiratory Rate Blood Pressure 88/56 L Pulse Oximetry Oxygen Delivery 03/27/25 16:00 03/27/25 16:00 03/27/25 16:00 Temperature 97.9 F Pulse Rate 127 H 146 H Respiratory Rate 16 Blood Pressure 95/48 L Pulse Oximetry 94 Oxygen Delivery Room Air 03/27/25 16:17 03/27/25 17:00 03/27/25 17:05 Temperature Pulse Rate 123 H 139 H Respiratory Rate Blood Pressure 100/66 Pulse Oximetry Oxygen Delivery 03/27/25 18:00 03/27/25 19:45 03/27/25 20:00 Temperature 98.5 F Pulse Rate 125 H 78 Respiratory Rate 16 Blood Pressure 95/66 L Pulse Oximetry 92 Oxygen Delivery Room Air 03/27/25 20:00 03/27/25 20:03 03/27/25 21:49 Temperature Pulse Rate 112 H 130 H Respiratory Rate Blood Pressure Pulse Oximetry 95 Oxygen Delivery Room Air 03/27/25 22:00 03/27/25 23:06 03/27/25 23:42 Temperature Pulse Rate 116 H 111 H Respiratory Rate 14 Blood Pressure Pulse Oximetry 95 Oxygen Delivery Autopap CPAP 03/28/25 00:00 03/28/25 00:08 03/28/25 02:00 Temperature 97.6 F Pulse Rate 101 H 107 H 104 H Respiratory Rate 20 Blood Pressure 98/55 L Pulse Oximetry 94 Oxygen Delivery 03/28/25 02:38 03/28/25 04:00 03/28/25 04:00 Temperature Pulse Rate 96 Respiratory Rate Blood Pressure Pulse Oximetry Oxygen Delivery Autopap CPAP 03/28/25 04:00 03/28/25 05:58 03/28/25 07:49 Temperature 98.1 F 97.5 F L Pulse Rate 88 82 116 H Respiratory Rate 17 20 Blood Pressure 82/58 L 95/61 L Pulse Oximetry 94 95 Oxygen Delivery 03/28/25 08:00 03/28/25 08:07 03/28/25 08:11 Temperature Pulse Rate 110 H 110 H Respiratory Rate Blood Pressure Pulse Oximetry 95 Oxygen Delivery Room Air Intake/Output Intake/Output: Intake & Output 03/25/25 03/26/25 03/27/25 03/28/25 23:59 23:59 23:59 23:59 Intake Total 1340 2960 1810 250 Output Total 225 1400 1750 700 Balance 1115 1560 60 -450 Meds/Results Medications: Active Medications Generic Name Dose Route Start Last Admin Trade Name Freq PRN Reason Stop Dose Admin Albuterol 2 puff 03/25/25 17:07 Albuterol Sulfate (*Sp) Aerosol 1 Puff INHALATION Q6HRT PRN shortness of breath or wheezing Aspirin 325 mg 03/26/25 09:00 08/17/25 08:06 Aspirin 325 Mg Enteric Tablet PO 325 mg DAILY BANG Administration Atorvastatin Calcium 40 mg 03/26/25 09:00 03/28/25 08:06 Atorvastatin 40 Mg Tablet PO 40 mg DAILY BANG Administration Cyanocobalamin 500 mcg 03/26/25 09:00 03/28/25 08:06 Cyanocobalamin 500 Mcg Tablet PO 500 mcg QAM BANG Administration Digoxin 125 mcg 03/25/25 17:00 03/28/25 08:07 Digoxin Tab 125 Mcg Tablet PO 125 mcg BID BANG Administration Folic Acid 1 mg 03/26/25 09:00 03/28/25 08:06 Folic Acid 1 Mg Tablet PO 1 mg QAM [facility] Administration Metoprolol Succinate 50 mg 03/27/25 21:00 03/28/25 08:11 Metoprolol Succinate Ext Rel 50 Mg Tabcr PO 50 mg Q12HR BANG Administration Midodrine 5 mg 03/27/25 17:00 03/28/25 08:07 Midodrine Hcl 2.5 Mg Tablet PO 5 mg TID [facility] Administration Nitroglycerin 0.4 mg 03/25/25 17:07 Nitroglycerin Sl 0.4 Mg Tablet SUBLINGUAL Q5M PRN Chest Pain Fluticasone/Salmeterol 2 puff 03/25/25 20:00 03/27/25 21:46 Fluticasone/Salmeterol 115-21 Mcg Inhaler 1 Puff INHALATION 2 puff Q12HRT BANG Administration Tamsulosin HCl 0.8 mg 03/26/25 09:00 03/28/25 08:06 Tamsulosin Hcl 0.4 Mg Capsule PO 0.8 mg QAM [facility] Administration Vitamin D 50 mcg 03/26/25 09:00 03/28/25 08:07 Cholecalciferol (Vitamin D3) 25 Mcg (1,000 Units) Tablet PO 50 mcg DAILY BANG Administration Radiology Results: ITS Impressions Chest CTA 03/25/25 09:15 IMPRESSION: 1. No pulmonary embolism identified. 2. Small to moderate size left-sided pleural effusion. 3. Small right-sided pleural effusion 4.There are a few reticular and ground glass opacities scattered throughout both lungs. 5.There is a enlarged 1.5 cm subcarinal lymph node. There is a mildly enlarged 1.1 cm right paratracheal lymph node. A follow up chest CT in 3 months is recommended. 6. Mild to moderate left-sided hydronephrosis. Partially visualized stent in the left renal pelvis. 7. Mild right-sided hydronephrosis. 8. Moderate centrilobular and paraseptal emphysema. 9. Probable old compression fractures of the T8, T11 and L2 vertebral bodies. Chest X-Ray 03/25/25 09:32 IMPRESSION: Interstitial lung disease with bilateral pleural effusions (left greater than right). Focal pleural thickening within the lateral margin of the right upper lobe, largely unchanged from previous radiograph dated 01/18/2025. The remainder of the lungs are clear. Labs Labs: Laboratory Results - last 24 hr 03/27/25 03/28/25 10:00 03:53 WBC 6.0 5.9 RBC 2.96 L 2.88 L Hgb 10.0 L 9.6 L Hct 31.0 L 30.3 L MCV 104.7 H 105.2 H MCH 33.8 33.3 MCHC 32.3 31.7 L RDW 14.9 H 14.7 H Plt Count 228 225 MPV 9.9 10.2 Sodium 129 L 131 L Potassium 4.5 4.0 Chloride 105 108 H Carbon Dioxide 23 19 L Anion Gap 1 L 4 BUN 20 19 Creatinine 1.54 H 1.56 H Estim Creat Clear Calc 47 47 Estimated GFR 45 L 45 L Glucose 94 97 Calcium 8.4 8.2 L Magnesium 2.1 2.0
--- NOTE | 2025-03-28 09:08 | PC.NURSE ---
To patient's room with morning medications. Patient's B/P 95/[address] Carlson at bedside and results given. Dr. Carlson OK with patient having morning dose Metoperol XL 25mg. Dose given per order. Patient remains in bed and denies dizziness and lightheadedness. Call light and personal items in reach. Will continue to monitor. Nicolasa Mercedes RN
[2025-03-28] MEDS: FLUTICASONE/SALMETEROL 115-21 MCG INHALER 1 PUFF 2 PUFF INHALATION ×2 (10:06→20:01)
--- NOTE | 2025-03-28 14:53 | PM.IMPN ---
Progress Note: A&P Assessment and Plan (1) Afib: Code(s): I48.91 - Unspecified atrial fibrillation Status: Acute (2) Atrial fibrillation with RVR: Code(s): I48.91 - Unspecified atrial fibrillation Status: Acute (3) New onset atrial fibrillation: Code(s): I48.91 - Unspecified atrial fibrillation Status: Acute (4) Acute renal failure: Qualifiers: Acute renal failure type: unspecified Qualified Code(s): N17.9 - Acute kidney failure, unspecified Code(s): N17.9 - Acute kidney failure, unspecified Status: Acute (5) Bladder wall thickening: Code(s): N32.89 - Other specified disorders of bladder Status: Acute (6) Mass of bladder: Code(s): N32.89 - Other specified disorders of bladder Status: Acute Plan patient was found to have A. Fib RVR however patient BP was on soft side, and was started on Amiodarone drip, patient was seen by lithograph press operator tinware and transition him to digoxin 125mcg BID and Metoprolol tartrate tab 25mg q6hr, will wean patient of amiodarone drip, will monitor, patient stats he has A. Fib for a longtime under stress as he was in for urologic procedure resulted RVR, patient is not on any anticoagulation due to low CHADES score is low, will monitor and plan. Patient remains clinically stable, his BP is still soft and and HR is fluctuating, seen by lithograph press operator tinware and increased midodrine 5mg TID from 2.5mg BID, and increased Metoprolol succinate to 50mg BID stopped amiodarone 200mg PO BID, still his BP is soft today and HR is high, will monitor and plan. Subjective Date/time seen: 03/28/25 14:53 Interval history: patient was found to have A. Fib RVR however patient BP was on soft side, and was started on Amiodarone drip, patient was seen by lithograph press operator tinware and transition him to digoxin 125mcg BID and Metoprolol tartrate tab 25mg q6hr, will wean patient of amiodarone drip, will monitor, patient stats he has A. Fib for a longtime under stress as he was in for urologic procedure resulted RVR, patient is not on any anticoagulation due to low CHADES score is low, will monitor and plan. Patient remains clinically stable, his BP is still soft and and HR is fluctuating, seen by lithograph press operator tinware and increased midodrine 5mg TID from 2.5mg BID, and increased Metoprolol succinate to 50mg BID stopped amiodarone 200mg PO BID, still his BP is soft today and HR is high, will monitor and plan. Review of Systems Review of Systems: All systems reviewed & are unremarkable except as noted in HPI and below Exam Narrative: Appears chronically ill Patient is comfortable, NAD HEENT: eyes are clear and none icteric LUNGS:CTA HEART: Irregularly irregular ABD: BS+, Soft and nontender Lower extremities: no edema SKIN: nonjaundiced Neuro: grossly intact. Objective Data Vital Signs Vital Signs: Vital Signs - 24 hr 03/27/25 16:00 03/27/25 16:00 03/27/25 16:00 Temperature 36.6 C Pulse Rate 127 H 146 H Respiratory Rate 16 Blood Pressure 95/48 L Pulse Oximetry 94 Oxygen Delivery Room Air 03/27/25 16:17 03/27/25 17:00 03/27/25 17:05 Temperature Pulse Rate 123 H 139 H Respiratory Rate Blood Pressure 100/66 Pulse Oximetry Oxygen Delivery 03/27/25 18:00 03/27/25 19:45 03/27/25 20:00 Temperature 36.9 C Pulse Rate 125 H 78 Respiratory Rate 16 Blood Pressure 95/66 L Pulse Oximetry 92 Oxygen Delivery Room Air 03/27/25 20:00 03/27/25 20:03 03/27/25 21:49 Temperature Pulse Rate 112 H 130 H Respiratory Rate Blood Pressure Pulse Oximetry 95 Oxygen Delivery Room Air 03/27/25 22:00 03/27/25 23:06 03/27/25 23:42 Temperature Pulse Rate 116 H 111 H Respiratory Rate 14 Blood Pressure Pulse Oximetry 95 Oxygen Delivery Autopap CPAP 03/28/25 00:00 03/28/25 00:08 03/28/25 02:00 Temperature 36.4 C Pulse Rate 101 H 107 H 104 H Respiratory Rate 20 Blood Pressure 98/55 L Pulse Oximetry 94 Oxygen Delivery 03/28/25 02:38 03/28/25 04:00 03/28/25 04:00 Temperature Pulse Rate 96 Respiratory Rate Blood Pressure Pulse Oximetry Oxygen Delivery Autopap CPAP 03/28/25 04:00 03/28/25 05:58 03/28/25 07:49 Temperature 36.7 C 36.4 C L Pulse Rate 88 82 116 H Respiratory Rate 17 20 Blood Pressure 82/58 L 95/61 L Pulse Oximetry 94 95 Oxygen Delivery 03/28/25 08:00 03/28/25 08:00 03/28/25 08:07 Temperature Pulse Rate 102 H 110 H Respiratory Rate Blood Pressure Pulse Oximetry 95 Oxygen Delivery Room Air 03/28/25 08:11 03/28/25 10:00 03/28/25 10:06 Temperature Pulse Rate 110 H 90 Respiratory Rate Blood Pressure Pulse Oximetry 94 Oxygen Delivery 03/28/25 12:00 03/28/25 12:00 03/28/25 12:00 Temperature 36.6 C Pulse Rate 113 H 108 H Respiratory Rate 21 H Blood Pressure 87/67 L Pulse Oximetry 94 94 Oxygen Delivery Room Air 03/28/25 14:00 Temperature Pulse Rate 86 Respiratory Rate Blood Pressure Pulse Oximetry Oxygen Delivery Intake/Output Intake/Output: Intake & Output 03/25/25 03/26/25 03/27/25 03/28/25 23:59 23:59 23:59 23:59 Intake Total 1340 2960 1810 850 Output Total 225 1400 1750 700 Balance 1115 1560 60 150 Meds/Results Medications: Active Medications Generic Name Dose Route Start Last Admin Trade Name Freq PRN Reason Stop Dose Admin Albuterol 2 puff 03/25/25 17:07 Albuterol Sulfate (*Sp) Aerosol 1 Puff INHALATION Q6HRT PRN shortness of breath or wheezing Aspirin 325 mg 03/26/25 09:00 03/28/25 08:06 Aspirin 325 Mg Enteric Tablet PO 325 mg DAILY BANG Administration Atorvastatin Calcium 40 mg 03/26/25 09:00 03/28/25 08:06 Atorvastatin 40 Mg Tablet PO 40 mg DAILY BANG Administration Cyanocobalamin 500 mcg 03/26/25 09:00 03/28/25 08:06 Cyanocobalamin 500 Mcg Tablet PO 500 mcg QAM BANG Administration Digoxin 125 mcg 03/25/25 17:00 03/28/25 08:07 Digoxin Tab 125 Mcg Tablet PO 125 mcg BID BANG Administration Folic Acid 1 mg 03/26/25 09:00 03/28/25 08:06 Folic Acid 1 Mg Tablet PO 1 mg QAM BANG Administration Metoprolol Succinate 50 mg 03/27/25 21:00 03/28/25 08:11 Metoprolol Succinate Ext Rel 50 Mg Tabcr PO 50 mg Q12HR BANG Administration Midodrine 5 mg 03/27/25 17:00 03/28/25 13:05 Midodrine Hcl 2.5 Mg Tablet PO 5 mg TID BANG Administration Nitroglycerin 0.4 mg 03/25/25 17:07 Nitroglycerin Sl 0.4 Mg Tablet SUBLINGUAL Q5M PRN Chest Pain Fluticasone/Salmeterol 2 puff 03/25/25 20:00 03/28/25 10:06 Fluticasone/Salmeterol 115-21 Mcg Inhaler 1 Puff INHALATION 2 puff Q12HRT BANG Administration Tamsulosin HCl 0.8 mg 03/26/25 09:00 03/28/25 08:06 Tamsulosin Hcl 0.4 Mg Capsule PO 0.8 mg QAM BANG Administration Vitamin D 50 mcg 03/26/25 09:00 03/28/25 08:07 Cholecalciferol (Vitamin D3) 25 Mcg (1,000 Units) Tablet PO 50 mcg DAILY BANG Administration Radiology Results: ITS Impressions Chest CTA 03/25/25 09:15 IMPRESSION: 1. No pulmonary embolism identified. 2. Small to moderate size left-sided pleural effusion. 3. Small right-sided pleural effusion 4.There are a few reticular and ground glass opacities scattered throughout both lungs. 5.There is a enlarged 1.5 cm subcarinal lymph node. There is a mildly enlarged 1.1 cm right paratracheal lymph node. A follow up chest CT in 3 months is recommended. 6. Mild to moderate left-sided hydronephrosis. Partially visualized stent in the left renal pelvis. 7. Mild right-sided hydronephrosis. 8. Moderate centrilobular and paraseptal emphysema. 9. Probable old compression fractures of the T8, T11 and L2 vertebral bodies. Chest X-Ray 03/25/25 09:32 IMPRESSION: Interstitial lung disease with bilateral pleural effusions (left greater than right). Focal pleural thickening within the lateral margin of the right upper lobe, largely unchanged from previous radiograph dated 01/18/2025. The remainder of the lungs are clear. Labs Labs: Laboratory Results - last 24 hr 03/28/25 03:53 WBC 5.9 RBC 2.88 L Hgb 9.6 L Hct 30.3 L MCV 105.2 H MCH 33.3 MCHC 31.7 L RDW 14.7 H Plt Count 225 MPV 10.2 Sodium 131 L Potassium 4.0 Chloride 108 H Carbon Dioxide 19 L Anion Gap 4 BUN 19 Creatinine 1.56 H Estim Creat Clear Calc 47 Estimated GFR 45 L Glucose 97 Calcium 8.2 L Magnesium 2.0 Quality VTE Prophylaxis VTE prophylaxis: mechanical ordered
--- NOTE | 2025-03-28 18:40 | PC.NURSE ---
Patient resting in bed and requested to go to the bathroom. Patients HR at rest 120-150s. Patient up walking and HR ranged from 150-190s. Patient sitting and resting and HR ramained 150-200s. Phoned Dr. Carlson and informed of patients HR and B/p 96/58. Order given to give Cardizem 15mg TID first dose now. Order placed and medication given per order. Nicolasa Mercedes RN
[2025-03-29] VITALS (27 sets, daily range): BP systolic 76–105; BP diastolic 50–63; PULSE 74–120; RESP 13–20; TEMP 36.6–36.8; O2SAT 90–100
[2025-03-29 03:59] LABS: Hematocrit 31.5 % (42.0-52.0); Hemoglobin 10.1 g/dL (14.0-18.0); Mean Corpuscular HGB Conc 32.1 g/dl (32-36); Mean Corpuscular Hemoglobin 33.7 pg (26-34); Mean Corpuscular Volume 105.0 fl (80-100); Platelet Count Result 247 k/mm3 (150-375); Red Blood Count 3.00 M/mm3 (4.6-6.20); White Blood Count 6.6 K/mm3 (4.5-10.0)
[2025-03-29 04:21] LABS: Anion Gap 4 mmol/L (4-12); Blood Urea Nitrogen 22 mg/dL (9-20); Calcium 8.4 mg/dL (8.4-10.2); Carbon Dioxide 20 mmol/L (22-30); Chloride 106 mmol/L (98-107); Estimated CRCL calculation 48 ml/min; Estimated Glomerular Filt Rate 46; Glucose 102 mg/dL (65-110); Magnesium 1.9 mg/dL (1.6-2.3); Potassium 4.1 mmol/L (3.4-5.0); Sodium 130 mmol/L (137-145)
--- NOTE | 2025-03-29 06:57 | P.PNCA_ITS ---
Progress Note: A&P Assessment and Plan (1) Afib: Code(s): I48.91 - Unspecified atrial fibrillation Status: Acute Assessment and Plan: Chronic. [id number] 1. On aspirin. Rate control with Metoprolol but it got fast. On Metoprolol Succinate 50 mg BID, continue Digoxin 125 mcg BID. On Midodrine 5 mg TID to support BP. Started Diltiazem 15 mg BID. If HR around 100 bpm or less may d/c home from cardiology standpoint. F/U with me in 2 weeks. (2) Dyslipidemia: Code(s): E78.5 - Hyperlipidemia, unspecified Status: Acute Assessment and Plan: On Atorvastatin. Subjective Date/time seen: 03/29/25 06:57 Interval history: He feels great. Denies chest pain, sob, dizziness, palpitations. Exam Const: General: cooperative, healthy appearing and comfortable Orientation/consciousness: oriented to person, oriented to place and oriented to time Resp: Auscultation: clear to auscultation bilaterally, no crackles, no rales, no rhonchi and no wheezes Cardio: Rate: regular rate Rhythm: abnormal rhythm Heart sounds: no murmurs Peripheral pulses: dorsalis pedis present Neuro: General: oriented to person, oriented to place and oriented to time Extrem: Right lower extremity: no edema Left lower extremity: no edema Objective Data Vital Signs Vital Signs: Vital Signs - 24 hr 03/28/25 07:49 03/28/25 08:00 03/28/25 08:00 Temperature 97.5 F L Pulse Rate 116 H 102 H Respiratory Rate 20 Blood Pressure 95/61 L Pulse Oximetry 95 95 Oxygen Delivery Room Air 03/28/25 08:07 03/28/25 08:11 03/28/25 10:00 Temperature Pulse Rate 110 H 110 H 90 Respiratory Rate Blood Pressure Pulse Oximetry Oxygen Delivery 03/28/25 10:06 03/28/25 12:00 03/28/25 12:00 Temperature 97.8 F Pulse Rate 113 H Respiratory Rate 21 H Blood Pressure 87/67 L Pulse Oximetry 94 94 94 Oxygen Delivery Room Air 03/28/25 12:00 03/28/25 14:00 03/28/25 15:49 Temperature 98.0 F Pulse Rate 108 H 86 98 Respiratory Rate 18 Blood Pressure 96/66 L Pulse Oximetry 95 Oxygen Delivery 03/28/25 16:00 03/28/25 16:00 03/28/25 17:20 Temperature Pulse Rate 91 121 H Respiratory Rate Blood Pressure Pulse Oximetry 95 Oxygen Delivery Room Air 03/28/25 18:00 03/28/25 20:00 03/28/25 20:00 Temperature 98.2 F Pulse Rate 108 H 118 H Respiratory Rate 20 Blood Pressure 89/42 L Pulse Oximetry 96 Oxygen Delivery Room Air 03/28/25 20:00 03/28/25 20:02 03/28/25 20:03 Temperature Pulse Rate 130 H 135 H Respiratory Rate Blood Pressure Pulse Oximetry 95 Oxygen Delivery Room Air 03/28/25 20:11 03/28/25 21:04 03/28/25 22:00 Temperature Pulse Rate 119 H 109 H Respiratory Rate Blood Pressure 96/63 L Pulse Oximetry Oxygen Delivery 03/29/25 00:00 03/29/25 00:00 03/29/25 00:00 Temperature 98.2 F Pulse Rate 111 H 104 H Respiratory Rate 20 Blood Pressure 87/61 L Pulse Oximetry 94 Oxygen Delivery Room Air 03/29/25 00:20 03/29/25 02:00 03/29/25 03:49 Temperature 98 F Pulse Rate 110 H 86 79 Respiratory Rate 20 16 Blood Pressure 89/50 L Pulse Oximetry 94 94 Oxygen Delivery Autopap 03/29/25 04:00 03/29/25 04:00 03/29/25 06:00 Temperature Pulse Rate 87 96 Respiratory Rate Blood Pressure Pulse Oximetry Oxygen Delivery Room Air Intake/Output Intake/Output: Intake & Output 03/26/25 03/27/25 03/28/25 03/29/25 23:59 23:59 23:59 23:59 Intake Total 2960 1810 1920 Output Total 1400 1750 1500 750 Balance 1560 60 420 -750 Meds/Results Medications: Active Medications Generic Name Dose Route Start Last Admin Trade Name Freq PRN Reason Stop Dose Admin Albuterol 2 puff 03/25/25 17:07 Albuterol Sulfate (*Sp) Aerosol 1 Puff INHALATION Q6HRT PRN shortness of breath or wheezing Aspirin 325 mg 03/26/25 09:00 03/28/25 08:06 Aspirin 325 Mg Enteric Tablet PO 325 mg DAILY BANG Administration Atorvastatin Calcium 40 mg 03/26/25 09:00 03/28/25 08:06 Atorvastatin 40 Mg Tablet PO 40 mg DAILY BANG Administration Cyanocobalamin 500 mcg 03/26/25 09:00 03/28/25 08:06 Cyanocobalamin 500 Mcg Tablet PO 500 mcg QAM BANG Administration Digoxin 125 mcg 03/25/25 17:00 03/28/25 17:20 Digoxin Tab 125 Mcg Tablet PO 125 mcg BID BANG Administration Diltiazem HCl 15 mg 03/29/25 09:00 Diltiazem Hcl 30 Mg Tablet PO BID BANG Folic Acid 1 mg 03/26/25 09:00 03/28/25 08:06 Folic Acid 1 Mg Tablet PO 1 mg QAM [facility] Administration Metoprolol Succinate 50 mg 03/27/25 21:00 03/28/25 21:04 Metoprolol Succinate Ext Rel 50 Mg Tabcr PO 50 mg Q12HR BANG Administration Midodrine 5 mg 03/27/25 17:00 03/28/25 17:20 Midodrine Hcl 2.5 Mg Tablet PO 5 mg TID [facility] Administration Nitroglycerin 0.4 mg 03/25/25 17:07 Nitroglycerin Sl 0.4 Mg Tablet SUBLINGUAL Q5M PRN Chest Pain Fluticasone/Salmeterol 2 puff 03/25/25 20:00 03/28/25 20:01 Fluticasone/Salmeterol 115-21 Mcg Inhaler 1 Puff INHALATION 2 puff Q12HRT BANG Administration Tamsulosin HCl 0.8 mg 03/26/25 09:00 03/28/25 08:06 Tamsulosin Hcl 0.4 Mg Capsule PO 0.8 mg QAM [facility] Administration Vitamin D 50 mcg 03/26/25 09:00 03/28/25 08:07 Cholecalciferol (Vitamin D3) 25 Mcg (1,000 Units) Tablet PO 50 mcg DAILY BANG Administration Radiology Results: ITS Impressions Chest CTA 03/25/25 09:15 IMPRESSION: 1. No pulmonary embolism identified. 2. Small to moderate size left-sided pleural effusion. 3. Small right-sided pleural effusion 4.There are a few reticular and ground glass opacities scattered throughout both lungs. 5.There is a enlarged 1.5 cm subcarinal lymph node. There is a mildly enlarged 1.1 cm right paratracheal lymph node. A follow up chest CT in 3 months is recommended. 6. Mild to moderate left-sided hydronephrosis. Partially visualized stent in the left renal pelvis. 7. Mild right-sided hydronephrosis. 8. Moderate centrilobular and paraseptal emphysema. 9. Probable old compression fractures of the T8, T11 and L2 vertebral bodies. Chest X-Ray 03/25/25 09:32 IMPRESSION: Interstitial lung disease with bilateral pleural effusions (left greater than right). Focal pleural thickening within the lateral margin of the right upper lobe, largely unchanged from previous radiograph dated 01/18/2025. The remainder of the lungs are clear. Labs Labs: Laboratory Results - last 24 hr 03/29/25 03:46 WBC 6.6 RBC 3.00 L Hgb 10.1 L Hct 31.5 L MCV 105.0 H MCH 33.7 MCHC 32.1 RDW 14.9 H Plt Count 247 MPV 10.2 Sodium 130 L Potassium 4.1 Chloride 106 Carbon Dioxide 20 L Anion Gap 4 BUN 22 H Creatinine 1.53 H Estim Creat Clear Calc 48 Estimated GFR 46 L Glucose 102 Calcium 8.4 Magnesium 1.9
[2025-03-29] MEDS: FLUTICASONE/SALMETEROL 115-21 MCG INHALER 1 PUFF 2 PUFF INHALATION ×2 (08:17→21:48)
[2025-03-29] MEDS: FOLIC ACID 1 MG TABLET PO (08:27)
[2025-03-29] MEDS: MIDODRINE HCL 2.5 MG TABLET 5 MG PO ×3 (08:27→17:04)
[2025-03-29] MEDS: TAMSULOSIN HCL 0.4 MG CAPSULE 0.8 MG PO (08:27)
[2025-03-29] MEDS: CHOLECALCIFEROL (VITAMIN D3) 25 MCG (1,000 UNITS) TABLET 50 MCG PO (08:27)
[2025-03-29] MEDS: ATORVASTATIN 40 MG TABLET PO (08:27)
[2025-03-29] MEDS: DIGOXIN TAB 125 MCG TABLET PO ×2 (08:28→17:04)
[2025-03-29] MEDS: CYANOCOBALAMIN 500 MCG TABLET PO (08:28)
[2025-03-29] MEDS: ASPIRIN 325 MG ENTERIC TABLET PO (08:28)
--- NOTE | 2025-03-29 16:16 | P.PNIM_ITS ---
Progress Note: A&P Assessment and Plan (1) Afib: Code(s): I48.91 - Unspecified atrial fibrillation Status: Acute (2) Atrial fibrillation with RVR: Code(s): I48.91 - Unspecified atrial fibrillation Status: Acute (3) New onset atrial fibrillation: Code(s): I48.91 - Unspecified atrial fibrillation Status: Acute (4) Acute renal failure: Qualifiers: Acute renal failure type: unspecified Qualified Code(s): N17.9 - Acute kidney failure, unspecified Code(s): N17.9 - Acute kidney failure, unspecified Status: Acute (5) Bladder wall thickening: Code(s): N32.89 - Other specified disorders of bladder Status: Acute (6) Mass of bladder: Code(s): N32.89 - Other specified disorders of bladder Status: Acute Plan patient was found to have A. Fib RVR however patient BP was on soft side, and was started on Amiodarone drip, patient was seen by medicaid eligibility specialist and transition him to digoxin 125mcg BID and Metoprolol tartrate tab 25mg q6hr, will wean patient of amiodarone drip, will monitor, patient stats he has A. Fib for a longtime under stress as he was in for urologic procedure resulted RVR, patient is not on any anticoagulation due to low CHADES score is low, will monitor and plan. Patient remains clinically stable, his BP is still soft and and HR is fluctuating, seen by medicaid eligibility specialist and increased midodrine 5mg TID from 2.5mg BID, and increased Metoprolol succinate to 50mg BID stopped amiodarone 200mg PO BID, added diltiazem 15 BID, while at rest patient HR is close 110 however with exertion it climbs to over 150, still his BP is soft today, will monitor and plan. Subjective Date/time seen: 03/29/25 16:16 Interval history: patient was found to have A. Fib RVR however patient BP was on soft side, and was started on Amiodarone drip, patient was seen by medicaid eligibility specialist and transition him to digoxin 125mcg BID and Metoprolol tartrate tab 25mg q6hr, will wean patient of amiodarone drip, will monitor, patient stats he has A. Fib for a longtime under stress as he was in for urologic procedure resulted RVR, patient is not on any anticoagulation due to low CHADES score is low, will monitor and plan. Patient remains clinically stable, his BP is still soft and and HR is fluctuating, seen by medicaid eligibility specialist and increased midodrine 5mg TID from 2.5mg BID, and increased Metoprolol succinate to 50mg BID stopped amiodarone 200mg PO BID, added diltiazem 15 BID, while at rest patient HR is close 110 however with exertion it climbs to over 150, still his BP is soft today, will monitor and plan. Review of Systems Review of Systems: All systems reviewed & are unremarkable except as noted in HPI and below Exam Narrative: Appears chronically ill Patient is comfortable, NAD HEENT: eyes are clear and none icteric LUNGS:CTA HEART: Irregularly irregular ABD: BS+, Soft and nontender Lower extremities: no edema SKIN: nonjaundiced Neuro: grossly intact. Objective Data Vital Signs Vital Signs: Vital Signs - 24 hr 03/28/25 17:20 03/28/25 18:00 03/28/25 20:00 Temperature 36.8 C Pulse Rate 121 H 108 H 118 H Respiratory Rate 20 Blood Pressure 89/42 L Pulse Oximetry 96 Oxygen Delivery 03/28/25 20:00 03/28/25 20:00 03/28/25 20:02 Temperature Pulse Rate 130 H Respiratory Rate Blood Pressure Pulse Oximetry 95 Oxygen Delivery Room Air Room Air 03/28/25 20:03 03/28/25 20:11 03/28/25 21:04 Temperature Pulse Rate 135 H 119 H Respiratory Rate Blood Pressure 96/63 L Pulse Oximetry Oxygen Delivery 03/28/25 22:00 03/29/25 00:00 03/29/25 00:00 Temperature 36.8 C Pulse Rate 109 H 111 H Respiratory Rate 20 Blood Pressure 87/61 L Pulse Oximetry 94 Oxygen Delivery Room Air 03/29/25 00:00 03/29/25 00:20 03/29/25 02:00 Temperature Pulse Rate 104 H 110 H 86 Respiratory Rate 20 Blood Pressure Pulse Oximetry 94 Oxygen Delivery Autopap 03/29/25 03:49 03/29/25 04:00 03/29/25 04:00 Temperature 36.6 C Pulse Rate 79 87 Respiratory Rate 16 Blood Pressure 89/50 L Pulse Oximetry 94 Oxygen Delivery Room Air 03/29/25 06:00 03/29/25 08:00 03/29/25 08:00 Temperature 36.8 C Pulse Rate 96 100 101 H Respiratory Rate 20 Blood Pressure 82/57 L Pulse Oximetry 97 Oxygen Delivery 03/29/25 08:00 03/29/25 08:12 03/29/25 08:19 Temperature Pulse Rate 120 H Respiratory Rate 18 Blood Pressure 88/55 L Pulse Oximetry 97 Oxygen Delivery Room Air 03/29/25 09:56 03/29/25 10:00 03/29/25 10:25 Temperature Pulse Rate 74 93 Respiratory Rate Blood Pressure 76/51 L 85/59 L Pulse Oximetry 100 Oxygen Delivery 03/29/25 10:40 03/29/25 11:41 03/29/25 12:00 Temperature 36.6 C Pulse Rate 104 H 103 H Respiratory Rate 20 Blood Pressure 86/52 L 98/62 L Pulse Oximetry 94 93 Oxygen Delivery Room Air 03/29/25 12:15 Temperature 36.6 C Pulse Rate 112 H Respiratory Rate 20 Blood Pressure 105/61 Pulse Oximetry 94 Oxygen Delivery Intake/Output Intake/Output: Intake & Output 03/26/25 03/27/25 03/28/25 03/29/25 23:59 23:59 23:59 23:59 Intake Total 2960 1810 1920 480 Output Total 1400 1750 1500 750 Balance 1560 60 420 -270 Meds/Results Medications: Active Medications Generic Name Dose Route Start Last Admin Trade Name Freq PRN Reason Stop Dose Admin Albuterol 2 puff 03/25/25 17:07 Albuterol Sulfate (*Sp) Aerosol 1 Puff INHALATION Q6HRT PRN shortness of breath or wheezing Aspirin 325 mg 03/26/25 09:00 03/29/25 08:28 Aspirin 325 Mg Enteric Tablet PO 325 mg DAILY BANG Administration Atorvastatin Calcium 40 mg 03/26/25 09:00 03/29/25 08:27 Atorvastatin 40 Mg Tablet PO 40 mg DAILY BANG Administration Cyanocobalamin 500 mcg 03/26/25 09:00 03/29/25 08:28 Cyanocobalamin 500 Mcg Tablet PO 500 mcg QAM BANG Administration Digoxin 125 mcg 03/25/25 17:00 03/29/25 08:28 Digoxin Tab 125 Mcg Tablet PO 125 mcg BID BANG Administration Diltiazem HCl 15 mg 03/29/25 09:00 03/29/25 12:12 Diltiazem Hcl 30 Mg Tablet PO 15 mg BID BANG Administration Folic Acid 1 mg 03/26/25 09:00 03/29/25 08:27 Folic Acid 1 Mg Tablet PO 1 mg QAM BANG Administration Metoprolol Succinate 50 mg 03/27/25 21:00 03/29/25 16:05 Metoprolol Succinate Ext Rel 50 Mg Tabcr PO Not Given Q12HR BANG Midodrine 5 mg 03/27/25 17:00 03/29/25 12:12 Midodrine Hcl 2.5 Mg Tablet PO 5 mg TID BANG Administration Nitroglycerin 0.4 mg 03/25/25 17:07 Nitroglycerin Sl 0.4 Mg Tablet SUBLINGUAL Q5M PRN Chest Pain Fluticasone/Salmeterol 2 puff 03/25/25 20:00 03/29/25 08:17 Fluticasone/Salmeterol 115-21 Mcg Inhaler 1 Puff INHALATION 2 puff Q12HRT BANG Administration Tamsulosin HCl 0.8 mg 03/26/25 09:00 03/29/25 08:27 Tamsulosin Hcl 0.4 Mg Capsule PO 0.8 mg QAM [facility] Administration Vitamin D 50 mcg 03/26/25 09:00 03/29/25 08:27 Cholecalciferol (Vitamin D3) 25 Mcg (1,000 Units) Tablet PO 50 mcg DAILY BANG Administration Radiology Results: ITS Impressions Chest CTA 03/25/25 09:15 IMPRESSION: 1. No pulmonary embolism identified. 2. Small to moderate size left-sided pleural effusion. 3. Small right-sided pleural effusion 4.There are a few reticular and ground glass opacities scattered throughout both lungs. 5.There is a enlarged 1.5 cm subcarinal lymph node. There is a mildly enlarged 1.1 cm right paratracheal lymph node. A follow up chest CT in 3 months is recommended. 6. Mild to moderate left-sided hydronephrosis. Partially visualized stent in the left renal pelvis. 7. Mild right-sided hydronephrosis. 8. Moderate centrilobular and paraseptal emphysema. 9. Probable old compression fractures of the T8, T11 and L2 vertebral bodies. Chest X-Ray 03/25/25 09:32 IMPRESSION: Interstitial lung disease with bilateral pleural effusions (left greater than right). Focal pleural thickening within the lateral margin of the right upper lobe, largely unchanged from previous radiograph dated 01/18/2025. The remainder of the lungs are clear. Labs Labs: Laboratory Results - last 24 hr 03/29/25 03:46 WBC 6.6 RBC 3.00 L Hgb 10.1 L Hct 31.5 L MCV 105.0 H MCH 33.7 MCHC 32.1 RDW 14.9 H Plt Count 247 MPV 10.2 Sodium 130 L Potassium 4.1 Chloride 106 Carbon Dioxide 20 L Anion Gap 4 BUN 22 H Creatinine 1.53 H Estim Creat Clear Calc 48 Estimated GFR 46 L Glucose 102 Calcium 8.4 Magnesium 1.9 Quality VTE Prophylaxis VTE prophylaxis: mechanical ordered
[2025-03-29] MEDS: METOPROLOL SUCCINATE EXT REL 50 MG TABCR PO (20:15)
[2025-03-30] VITALS (23 sets, daily range): BP systolic 78–107; BP diastolic 43–70; PULSE 89–125; RESP 14–20; TEMP 36.3–36.9; O2SAT 93–99
[2025-03-30 05:22] LABS: Anion Gap 5 mmol/L (4-12); Blood Urea Nitrogen 22 mg/dL (9-20); Calcium 8.5 mg/dL (8.4-10.2); Carbon Dioxide 19 mmol/L (22-30); Chloride 106 mmol/L (98-107); Estimated CRCL calculation 53 ml/min; Estimated Glomerular Filt Rate 51; Glucose 95 mg/dL (65-110); Magnesium 1.9 mg/dL (1.6-2.3); Potassium 4.4 mmol/L (3.4-5.0); Sodium 130 mmol/L (137-145)
[2025-03-30 05:25] LABS: Hematocrit 31.8 % (42.0-52.0); Hemoglobin 10.3 g/dL (14.0-18.0); Mean Corpuscular HGB Conc 32.4 g/dl (32-36); Mean Corpuscular Hemoglobin 34.2 pg (26-34); Mean Corpuscular Volume 105.6 fl (80-100); Platelet Count Result 262 k/mm3 (150-375); Red Blood Count 3.01 M/mm3 (4.6-6.20); White Blood Count 6.2 K/mm3 (4.5-10.0)
--- NOTE | 2025-03-30 07:42 | P.PNCA_ITS ---
Progress Note: A&P Assessment and Plan (1) Afib: Code(s): I48.91 - Unspecified atrial fibrillation Status: Acute Assessment and Plan: Chronic. [id number] 1. On aspirin. Rate control with Metoprolol but it got fast. On Metoprolol Succinate 50 mg BID, Diltiazem 15 mg BID, Digoxin 125 mcg BID. On Midodrine 5 mg TID to support BP. If HR around 100 bpm or less may d/c home from cardiology standpoint. F/U with me in 2 weeks. (2) Dyslipidemia: Code(s): E78.5 - Hyperlipidemia, unspecified Status: Acute Assessment and Plan: On Atorvastatin. Subjective Date/time seen: 03/30/25 07:42 Interval history: He feels great. Denies chest pain, sob, dizziness, palpitations. Exam Const: General: cooperative, healthy appearing and comfortable Orientation/consciousness: oriented to person, oriented to place and oriented to time Resp: Auscultation: clear to auscultation bilaterally, no crackles, no rales, no rhonchi and no wheezes Cardio: Rate: tachycardic Rhythm: abnormal rhythm Heart sounds: no murmurs Peripheral pulses: dorsalis pedis present Neuro: General: oriented to person, oriented to place and oriented to time Extrem: Right lower extremity: no edema Left lower extremity: no edema Objective Data Vital Signs Vital Signs: Vital Signs - 24 hr 03/29/25 08:00 03/29/25 08:00 03/29/25 08:00 Temperature 98.2 F Pulse Rate 100 101 H Respiratory Rate 20 Blood Pressure 82/57 L Pulse Oximetry 97 97 Oxygen Delivery Room Air Fraction of Inspired Oxygen 03/29/25 08:12 03/29/25 08:19 03/29/25 09:56 Temperature Pulse Rate 120 H 74 Respiratory Rate 18 Blood Pressure 88/55 L 76/51 L Pulse Oximetry 100 Oxygen Delivery Fraction of Inspired Oxygen 03/29/25 10:00 03/29/25 10:25 03/29/25 10:40 Temperature Pulse Rate 93 104 H Respiratory Rate Blood Pressure 85/59 L 86/52 L Pulse Oximetry 94 Oxygen Delivery Fraction of Inspired Oxygen 03/29/25 11:41 03/29/25 12:00 03/29/25 12:00 Temperature 97.8 F Pulse Rate 103 H 117 H Respiratory Rate 20 Blood Pressure 98/62 L Pulse Oximetry 93 Oxygen Delivery Room Air Fraction of Inspired Oxygen 03/29/25 12:15 03/29/25 14:00 03/29/25 16:00 Temperature 97.8 F Pulse Rate 112 H 110 H Respiratory Rate 20 Blood Pressure 105/61 Pulse Oximetry 94 Oxygen Delivery Room Air Fraction of Inspired Oxygen 03/29/25 16:00 03/29/25 16:26 03/29/25 18:00 Temperature 97.9 F Pulse Rate 118 H 102 H 103 H Respiratory Rate 20 Blood Pressure 95/55 L Pulse Oximetry 94 Oxygen Delivery Fraction of Inspired Oxygen 03/29/25 20:00 03/29/25 20:00 03/29/25 20:00 Temperature 98.0 F Pulse Rate 96 95 Respiratory Rate 16 Blood Pressure 98/61 L Pulse Oximetry 90 Oxygen Delivery Room Air Fraction of Inspired Oxygen 03/29/25 20:15 03/29/25 21:00 03/29/25 21:49 Temperature Pulse Rate 109 H 99 Respiratory Rate 20 Blood Pressure 94/63 L Pulse Oximetry Oxygen Delivery Fraction of Inspired Oxygen 03/29/25 21:51 03/29/25 21:53 03/29/25 22:00 Temperature Pulse Rate 99 105 H 102 H Respiratory Rate 20 13 Blood Pressure Pulse Oximetry 99 95 Oxygen Delivery Room Air Autopap Fraction of Inspired Oxygen 21 03/30/25 00:00 03/30/25 00:00 03/30/25 00:00 Temperature 97.9 F Pulse Rate 109 H 95 Respiratory Rate 16 Blood Pressure 88/57 L Pulse Oximetry 94 Oxygen Delivery Room Air Fraction of Inspired Oxygen 03/30/25 02:00 03/30/25 04:00 03/30/25 04:00 Temperature Pulse Rate 111 H 101 H Respiratory Rate Blood Pressure Pulse Oximetry Oxygen Delivery Room Air Fraction of Inspired Oxygen 03/30/25 04:00 03/30/25 05:39 03/30/25 06:00 Temperature 97.9 F Pulse Rate 96 102 H 96 Respiratory Rate 14 Blood Pressure 87/54 L Pulse Oximetry 97 95 Oxygen Delivery Room Air Fraction of Inspired Oxygen Intake/Output Intake/Output: Intake & Output 03/27/25 03/28/25 03/29/25 03/30/25 23:59 23:59 23:59 23:59 Intake Total 1810 1920 1020 200 Output Total 1750 1500 1450 700 Balance 60 420 430 -500 Meds/Results Medications: Active Medications Generic Name Dose Route Start Last Admin Trade Name Freq PRN Reason Stop Dose Admin Albuterol 2 puff 03/25/25 17:07 Albuterol Sulfate (*Sp) Aerosol 1 Puff INHALATION Q6HRT PRN shortness of breath or wheezing Aspirin 325 mg 03/26/25 09:00 03/29/25 08:28 Aspirin 325 Mg Enteric Tablet PO 325 mg DAILY BANG Administration Atorvastatin Calcium 40 mg 03/26/25 09:00 03/29/25 08:27 Atorvastatin 40 Mg Tablet PO 40 mg DAILY BANG Administration Cyanocobalamin 500 mcg 03/26/25 09:00 03/29/25 08:28 Cyanocobalamin 500 Mcg Tablet PO 500 mcg QAM [facility] Administration Digoxin 125 mcg 03/25/25 17:00 03/29/25 17:04 Digoxin Tab 125 Mcg Tablet PO 125 mcg BID [facility] Administration Diltiazem HCl 15 mg 03/29/25 09:00 03/29/25 17:04 Diltiazem Hcl 30 Mg Tablet PO 15 mg BID [facility] Administration Folic Acid 1 mg 03/26/25 09:00 03/29/25 08:27 Folic Acid 1 Mg Tablet PO 1 mg QAM [facility] Administration Metoprolol Succinate 50 mg 03/27/25 21:00 03/29/25 20:15 Metoprolol Succinate Ext Rel 50 Mg Tabcr PO 50 mg Q12HR [facility] Administration Midodrine 5 mg 03/27/25 17:00 03/29/25 17:04 Midodrine Hcl 2.5 Mg Tablet PO 5 mg TID [facility] Administration Nitroglycerin 0.4 mg 03/25/25 17:07 Nitroglycerin Sl 0.4 Mg Tablet SUBLINGUAL Q5M PRN Chest Pain Fluticasone/Salmeterol 2 puff 03/25/25 20:00 03/29/25 21:48 Fluticasone/Salmeterol 115-21 Mcg Inhaler 1 Puff INHALATION 2 puff Q12HRT [facility] Administration Tamsulosin HCl 0.8 mg 03/26/25 09:00 03/29/25 08:27 Tamsulosin Hcl 0.4 Mg Capsule PO 0.8 mg QAM [facility] Administration Vitamin D 50 mcg 03/26/25 09:00 03/29/25 08:27 Cholecalciferol (Vitamin D3) 25 Mcg (1,000 Units) Tablet PO 50 mcg DAILY BANG Administration Radiology Results: ITS Impressions Chest CTA 03/25/25 09:15 IMPRESSION: 1. No pulmonary embolism identified. 2. Small to moderate size left-sided pleural effusion. 3. Small right-sided pleural effusion 4.There are a few reticular and ground glass opacities scattered throughout both lungs. 5.There is a enlarged 1.5 cm subcarinal lymph node. There is a mildly enlarged 1.1 cm right paratracheal lymph node. A follow up chest CT in 3 months is darya mmended. 6. Mild to moderate left-sided hydronephrosis. Partially visualized stent in the left renal pelvis. 7. Mild right-sided hydronephrosis. 8. Moderate centrilobular and paraseptal emphysema. 9. Probable old compression fractures of the T8, T11 and L2 vertebral bodies. Chest X-Ray 03/25/25 09:32 IMPRESSION: Interstitial lung disease with bilateral pleural effusions (left greater than right). Focal pleural thickening within the lateral margin of the right upper lobe, largely unchanged from previous radiograph dated 01/18/2025. The remainder of the lungs are clear. Labs Labs: Laboratory Results - last 24 hr 03/30/25 04:05 WBC 6.2 RBC 3.01 L Hgb 10.3 L Hct 31.8 L MCV 105.6 H MCH 34.2 H MCHC 32.4 RDW 14.9 H Plt Count 262 MPV 10.5 H Sodium 130 L Potassium 4.4 Chloride 106 Carbon Dioxide 19 L Anion Gap 5 BUN 22 H Creatinine 1.38 H Estim Creat Clear Calc 53 Estimated GFR 51 L Glucose 95 Calcium 8.5 Magnesium 1.9
[2025-03-30] MEDS: ASPIRIN 325 MG ENTERIC TABLET PO (08:46)
[2025-03-30] MEDS: CHOLECALCIFEROL (VITAMIN D3) 25 MCG (1,000 UNITS) TABLET 50 MCG PO (08:46)
[2025-03-30] MEDS: METOPROLOL SUCCINATE EXT REL 50 MG TABCR PO ×2 (08:46→20:10)
[2025-03-30] MEDS: TAMSULOSIN HCL 0.4 MG CAPSULE 0.8 MG PO (08:47)
[2025-03-30] MEDS: MIDODRINE HCL 2.5 MG TABLET 5 MG PO (08:47)
[2025-03-30] MEDS: FOLIC ACID 1 MG TABLET PO (08:47)
[2025-03-30] MEDS: CYANOCOBALAMIN 500 MCG TABLET PO (08:47)
[2025-03-30] MEDS: DIGOXIN TAB 125 MCG TABLET PO ×2 (08:47→18:15)
[2025-03-30] MEDS: ATORVASTATIN 40 MG TABLET PO (08:47)
[2025-03-30] MEDS: MIDODRINE HCL 10 MG TABLET PO ×2 (11:51→16:27)
--- NOTE | 2025-03-30 15:17 | P.PNIM_ITS ---
Progress Note: A&P Assessment and Plan (1) Afib: Code(s): I48.91 - Unspecified atrial fibrillation Status: Acute (2) Atrial fibrillation with RVR: Code(s): I48.91 - Unspecified atrial fibrillation Status: Acute (3) New onset atrial fibrillation: Code(s): I48.91 - Unspecified atrial fibrillation Status: Acute (4) Acute renal failure: Qualifiers: Acute renal failure type: unspecified Qualified Code(s): N17.9 - Acute kidney failure, unspecified Code(s): N17.9 - Acute kidney failure, unspecified Status: Acute (5) Bladder wall thickening: Code(s): N32.89 - Other specified disorders of bladder Status: Acute (6) Mass of bladder: Code(s): N32.89 - Other specified disorders of bladder Status: Acute Plan patient was found to have A. Fib RVR however patient BP was on soft side, and was started on Amiodarone drip, patient was seen by assistant track and field coach and transition him to digoxin 125mcg BID and Metoprolol tartrate tab 25mg q6hr, will wean patient of amiodarone drip, will monitor, patient stats he has A. Fib for a longtime under stress as he was in for urologic procedure resulted RVR, patient is not on any anticoagulation due to low CHADES score is low, will monitor and plan. Patient remains clinically stable, his BP is still soft and and HR is fluctuating, seen by assistant track and field coach and increased midodrine 5mg TID from 2.5mg BID, and increased Metoprolol succinate to 50mg BID stopped amiodarone 200mg PO BID, added diltiazem 15 BID, while at rest patient HR is close 110 however with exertion it climbs to over 150, still his BP is soft today, will monitor and plan. Today assistant track and field coach increased diltiazem to 30mg BID, will monitor, if there is no improvement, patient may need to consult EP and further recommendation to follow. Subjective Date/time seen: 03/30/25 15:17 Interval history: patient was found to have A. Fib RVR however patient BP was on soft side, and was started on Amiodarone drip, patient was seen by assistant track and field coach and transition him to digoxin 125mcg BID and Metoprolol tartrate tab 25mg q6hr, will wean patient of amiodarone drip, will monitor, patient stats he has A. Fib for a longtime under stress as he was in for urologic procedure resulted RVR, patient is not on any anticoagulation due to low CHADES score is low, will monitor and plan. Patient remains clinically stable, his BP is still soft and and HR is fluctuating, seen by assistant track and field coach and increased midodrine 5mg TID from 2.5mg BID, and increased Metoprolol succinate to 50mg BID stopped amiodarone 200mg PO BID, added diltiazem 15 BID, while at rest patient HR is close 110 however with exertion it climbs to over 150, still his BP is soft today, will monitor and plan. Today assistant track and field coach increased diltiazem to 30mg BID, will monitor, if there is no improvement, patient may need to consult EP and further recommendation to follow. Review of Systems Review of Systems: All systems reviewed & are unremarkable except as noted in HPI and below Exam Narrative: Appears chronically ill Patient is comfortable, NAD HEENT: eyes are clear and none icteric LUNGS:CTA HEART: Irregularly irregular ABD: BS+, Soft and nontender Lower extremities: no edema SKIN: nonjaundiced Neuro: grossly intact. Objective Data Vital Signs Vital Signs: Vital Signs - 24 hr 03/29/25 16:00 03/29/25 16:00 03/29/25 16:26 Temperature 36.6 C Pulse Rate 118 H 102 H Respiratory Rate 20 Blood Pressure 95/55 L Pulse Oximetry 94 Oxygen Delivery Room Air Fraction of Inspired Oxygen 03/29/25 18:00 03/29/25 20:00 03/29/25 20:00 Temperature 36.7 C Pulse Rate 103 H 96 Respiratory Rate 16 Blood Pressure 98/61 L Pulse Oximetry 90 Oxygen Delivery Room Air Fraction of Inspired Oxygen 03/29/25 20:00 03/29/25 20:15 03/29/25 21:00 Temperature Pulse Rate 95 109 H Respiratory Rate Blood Pressure 94/63 L Pulse Oximetry Oxygen Delivery Fraction of Inspired Oxygen 03/29/25 21:49 03/29/25 21:51 03/29/25 21:53 Temperature Pulse Rate 99 99 105 H Respiratory Rate 20 20 13 Blood Pressure Pulse Oximetry 99 95 Oxygen Delivery Room Air Autopap Fraction of Inspired Oxygen 21 03/29/25 22:00 03/30/25 00:00 03/30/25 00:00 Temperature 36.6 C Pulse Rate 102 H 109 H Respiratory Rate 16 Blood Pressure 88/57 L Pulse Oximetry 94 Oxygen Delivery Room Air Fraction of Inspired Oxygen 03/30/25 00:00 03/30/25 02:00 03/30/25 04:00 Temperature Pulse Rate 95 111 H 101 H Respiratory Rate Blood Pressure Pulse Oximetry Oxygen Delivery Fraction of Inspired Oxygen 03/30/25 04:00 03/30/25 04:00 03/30/25 05:39 Temperature 36.6 C Pulse Rate 96 102 H Respiratory Rate 14 Blood Pressure 87/54 L Pulse Oximetry 97 95 Oxygen Delivery Room Air Room Air Fraction of Inspired Oxygen 03/30/25 06:00 03/30/25 07:49 03/30/25 07:50 Temperature Pulse Rate 96 92 92 Respiratory Rate 20 20 Blood Pressure Pulse Oximetry 94 Oxygen Delivery Room Air Fraction of Inspired Oxygen 21 03/30/25 08:00 03/30/25 08:00 03/30/25 08:00 Temperature 36.4 C Pulse Rate 109 H 125 H Respiratory Rate 20 Blood Pressure 102/57 L Pulse Oximetry 96 Oxygen Delivery Room Air Fraction of Inspired Oxygen 03/30/25 08:46 03/30/25 08:47 03/30/25 10:00 Temperature Pulse Rate 118 H 118 H 122 H Respiratory Rate Blood Pressure Pulse Oximetry Oxygen Delivery Fraction of Inspired Oxygen 03/30/25 11:13 03/30/25 11:14 03/30/25 12:00 Temperature 36.3 C L Pulse Rate 101 H Respiratory Rate 20 Blood Pressure 78/52 L 80/52 L 107/70 Pulse Oximetry 99 Oxygen Delivery Fraction of Inspired Oxygen 03/30/25 12:00 03/30/25 12:00 03/30/25 14:00 Temperature Pulse Rate 117 H 96 Respiratory Rate Blood Pressure Pulse Oximetry Oxygen Delivery Room Air Fraction of Inspired Oxygen Intake/Output Intake/Output: Intake & Output 03/27/25 03/28/25 03/29/25 03/30/25 23:59 23:59 23:59 23:59 Intake Total 1810 1920 1020 680 Output Total 1750 1500 1450 700 Balance 60 420 -430 -20 Meds/Results Medications: Active Medications Generic Name Dose Route Start Last Admin Trade Name Freq PRN Reason Stop Dose Admin Albuterol 2 puff 03/25/25 17:07 Albuterol Sulfate (*Sp) Aerosol 1 Puff INHALATION Q6HRT PRN shortness of breath or wheezing Aspirin 325 mg 03/26/25 09:00 03/30/25 08:46 Aspirin 325 Mg Enteric Tablet PO 325 mg DAILY [facility]ANG Administration Atorvastatin Calcium 40 mg 03/26/25 09:00 03/30/25 08:47 Atorvastatin 40 Mg Tablet PO 40 mg DAILY [facility] Administration Cyanocobalamin 500 mcg 03/26/25 09:00 03/30/25 08:47 Cyanocobalamin 500 Mcg Tablet PO 500 mcg QAM [facility] Administration Digoxin 125 mcg 03/25/25 17:00 03/30/25 08:47 Digoxin Tab 125 Mcg Tablet PO 125 mcg BID [facility] Administration Diltiazem HCl 30 mg 03/30/25 17:00 Diltiazem Hcl 30 Mg Tablet PO BID [facility] Folic Acid 1 mg 03/26/25 09:00 03/30/25 08:47 Folic Acid 1 Mg Tablet PO 1 mg QAM [facility] Administration Metoprolol Succinate 50 mg 03/27/25 21:00 03/30/25 08:46 Metoprolol Succinate Ext Rel 50 Mg Tabcr PO 50 mg Q12HR [facility] Administration Midodrine 10 mg 03/30/25 11:30 03/30/25 11:51 Midodrine Hcl 10 Mg Tablet PO 10 mg TID [facility] Administration Nitroglycerin 0.4 mg 03/25/25 17:07 Nitroglycerin Sl 0.4 Mg Tablet SUBLINGUAL Q5M PRN Chest Pain Fluticasone/Salmeterol 2 puff 03/25/25 20:00 03/30/25 13:10 Fluticasone/Salmeterol 115-21 Mcg Inhaler 1 Puff INHALATION Not Given Q12HRT [facility] Tamsulosin HCl 0.8 mg 03/26/25 09:00 03/30/25 08:47 Tamsulosin Hcl 0.4 Mg Capsule PO 0.8 mg QAM [facility] Administration Vitamin D 50 mcg 03/26/25 09:00 03/30/25 08:46 Cholecalciferol (Vitamin D3) 25 Mcg (1,000 Units) Tablet PO 50 mcg DAILY [facility] Administration Radiology Results: ITS Impressions Chest CTA 03/25/25 09:15 IMPRESSION: 1. No pulmonary embolism identified. 2. Small to moderate size left-sided pleural effusion. 3. Small right-sided pleural effusion 4.There are a few reticular and ground glass opacities scattered throughout both lungs. 5.There is a enlarged 1.5 cm subcarinal lymph node. There is a mildly enlarged 1.1 cm right paratracheal lymph node. A follow up chest CT in 3 months is recommended. 6. Mild to moderate left-sided hydronephrosis. Partially visualized stent in the left renal pelvis. 7. Mild right-sided hydronephrosis. 8. Moderate centrilobular and paraseptal emphysema. 9. Probable old compression fractures of the T8, T11 and L2 vertebral bodies. Chest X-Ray 03/25/25 09:32 IMPRESSION: Interstitial lung disease with bilateral pleural effusions (left greater than right). Focal pleural thickening within the lateral margin of the right upper lobe, largely unchanged from previous radiograph dated 01/18/2025. The remainder of the lungs are clear. Labs Labs: Laboratory Results - last 24 hr 03/30/25 04:05 WBC 6.2 RBC 3.01 L Hgb 10.3 L Hct 31.8 L MCV 105.6 H MCH 34.2 H MCHC 32.4 RDW 14.9 H Plt Count 262 MPV 10.5 H Sodium 130 L Potassium 4.4 Chloride 106 Carbon Dioxide 19 L Anion Gap 5 BUN 22 H Creatinine 1.38 H Estim Creat Clear Calc 53 Estimated GFR 51 L Glucose 95 Calcium 8.5 Magnesium 1.9 Quality VTE Prophylaxis VTE prophylaxis: mechanical ordered
[2025-03-30] MEDS: ACETAMINOPHEN 325 MG TABLET 650 MG PO (15:46)
[2025-03-30] MEDS: FLUTICASONE/SALMETEROL 115-21 MCG INHALER 1 PUFF 2 PUFF INHALATION (20:23)
[2025-03-31] VITALS (26 sets, daily range): BP systolic 92–130; BP diastolic 51–101; PULSE 70–140; RESP 14–20; TEMP 36.4–36.9; O2SAT 91–99
[2025-03-31 03:55] LABS: Hematocrit 32.2 % (42.0-52.0); Hemoglobin 10.3 g/dL (14.0-18.0); Mean Corpuscular HGB Conc 32.0 g/dl (32-36); Mean Corpuscular Hemoglobin 33.4 pg (26-34); Mean Corpuscular Volume 104.5 fl (80-100); Platelet Count Result 267 k/mm3 (150-375); Red Blood Count 3.08 M/mm3 (4.6-6.20); White Blood Count 6.5 K/mm3 (4.5-10.0)
[2025-03-31 04:08] LABS: Anion Gap 7 mmol/L (4-12); Blood Urea Nitrogen 22 mg/dL (9-20); Calcium 8.4 mg/dL (8.4-10.2); Carbon Dioxide 20 mmol/L (22-30); Chloride 106 mmol/L (98-107); Estimated CRCL calculation 50 ml/min; Estimated Glomerular Filt Rate 49; Glucose 102 mg/dL (65-110); Magnesium 1.9 mg/dL (1.6-2.3); Potassium 4.2 mmol/L (3.4-5.0); Sodium 133 mmol/L (137-145)
--- NOTE | 2025-03-31 07:44 | PM.PNCARD ---
Progress Note: A&P Assessment and Plan (1) Afib: Code(s): I48.91 - Unspecified atrial fibrillation Status: Acute Assessment and Plan: Chronic. [id number] 1. On aspirin. Rate control with Metoprolol but it got fast. On Metoprolol Succinate 50 mg BID, Diltiazem 30 mg BID, Digoxin 125 mcg BID. On Midodrine 10 mg TID to support BP. If HR around 100 bpm or less may d/c home from cardiology standpoint. F/U with me in 2 weeks. (2) Dyslipidemia: Code(s): E78.5 - Hyperlipidemia, unspecified Status: Acute Assessment and Plan: On Atorvastatin. Subjective Date/time seen: 03/31/25 07:44 Interval history: He feels great. Denies chest pain, sob, dizziness, palpitations. Exam Const: General: cooperative, healthy appearing and comfortable Orientation/consciousness: oriented to person, oriented to place and oriented to time Resp: Auscultation: clear to auscultation bilaterally, no crackles, no rales, no rhonchi and no wheezes Cardio: Rate: tachycardic Rhythm: abnormal rhythm Heart sounds: no murmurs Peripheral pulses: dorsalis pedis present Neuro: General: oriented to person, oriented to place and oriented to time Extrem: Right lower extremity: no edema Left lower extremity: no edema Objective Data Vital Signs Vital Signs: Vital Signs - 24 hr 03/30/25 07:49 03/30/25 07:50 03/30/25 08:00 Temperature 97.6 F Pulse Rate 92 92 109 H Respiratory Rate 20 20 20 Blood Pressure 102/57 L Pulse Oximetry 94 96 Oxygen Delivery Room Air Fraction of Inspired Oxygen 21 03/30/25 08:00 03/30/25 08:00 03/30/25 08:46 Temperature Pulse Rate 125 H 118 H Respiratory Rate Blood Pressure Pulse Oximetry Oxygen Delivery Room Air Fraction of Inspired Oxygen 03/30/25 08:47 03/30/25 10:00 03/30/25 11:13 Temperature Pulse Rate 118 H 122 H Respiratory Rate Blood Pressure 78/52 L Pulse Oximetry Oxygen Delivery Fraction of Inspired Oxygen 03/30/25 11:14 03/30/25 12:00 03/30/25 12:00 Temperature 97.4 F L Pulse Rate 101 H 117 H Respiratory Rate 20 Blood Pressure 80/52 L 107/70 Pulse Oximetry 99 Oxygen Delivery Fraction of Inspired Oxygen 03/30/25 12:00 03/30/25 14:00 03/30/25 16:00 Temperature Pulse Rate 96 94 Respiratory Rate Blood Pressure Pulse Oximetry Oxygen Delivery Room Air Fraction of Inspired Oxygen 03/30/25 16:00 03/30/25 16:00 03/30/25 18:00 Temperature 97.8 F Pulse Rate 112 H 106 H Respiratory Rate 20 Blood Pressure 80/43 L Pulse Oximetry 96 Oxygen Delivery Room Air Fraction of Inspired Oxygen 03/30/25 18:14 03/30/25 18:15 03/30/25 20:00 Temperature 98.4 F Pulse Rate 113 H 97 Respiratory Rate 18 Blood Pressure 96/58 L 96/56 L Pulse Oximetry 94 Oxygen Delivery Fraction of Inspired Oxygen 03/30/25 20:00 03/30/25 20:00 03/30/25 20:10 Temperature Pulse Rate 89 99 Respiratory Rate Blood Pressure Pulse Oximetry Oxygen Delivery Room Air Fraction of Inspired Oxygen 03/30/25 20:23 03/30/25 22:00 03/31/25 00:00 Temperature 97.7 F Pulse Rate 101 H 99 Respiratory Rate 18 Blood Pressure 101/61 Pulse Oximetry 93 93 Oxygen Delivery Room Air Fraction of Inspired Oxygen 03/31/25 00:00 03/31/25 00:00 03/31/25 02:00 Temperature Pulse Rate 95 96 Respiratory Rate Blood Pressure Pulse Oximetry Oxygen Delivery Room Air Fraction of Inspired Oxygen 03/31/25 04:00 03/31/25 04:00 03/31/25 04:00 Temperature 97.5 F L Pulse Rate 94 84 Respiratory Rate 16 Blood Pressure 95/58 L Pulse Oximetry 97 Oxygen Delivery Room Air Fraction of Inspired Oxygen 03/31/25 06:00 Temperature Pulse Rate 92 Respiratory Rate Blood Pressure Pulse Oximetry Oxygen Delivery Fraction of Inspired Oxygen Intake/Output Intake/Output: Intake & Output 03/28/25 03/29/25 03/30/25 03/31/25 23:59 23:59 23:59 23:59 Intake Total 1920 1020 1270 300 Output Total 1500 1450 1450 550 Balance 187 -928 -578 -527 Meds/Results Medications: Active Medications Generic Name Dose Route Start Last Admin Trade Name Freq PRN Reason Stop Dose Admin Acetaminophen 650 mg 03/30/25 15:18 03/30/25 15:46 Acetaminophen 325 Mg Tablet PO 650 mg Q6H PRN Administration Mild Pain (1-3) or Fever Albuterol 2 puff 03/25/25 17:07 Albuterol Sulfate (*Sp) Aerosol 1 Puff INHALATION Q6HRT PRN shortness of breath or wheezing Aspirin 325 mg 03/26/25 09:00 03/30/25 08:46 Aspirin 325 Mg Enteric Tablet PO 325 mg DAILY [facility] Administration Atorvastatin Calcium 40 mg 03/26/25 09:00 03/30/25 08:47 Atorvastatin 40 Mg Tablet PO 40 mg DAILY [facility] Administration Cyanocobalamin 500 mcg 03/26/25 09:00 03/30/25 08:47 Cyanocobalamin 500 Mcg Tablet PO 500 mcg QAM [facility] Administration Digoxin 125 mcg 03/25/25 17:00 03/30/25 18:15 Digoxin Tab 125 Mcg Tablet PO 125 mcg BID [facility] Administration Diltiazem HCl 30 mg 03/30/25 17:00 03/30/25 18:14 Diltiazem Hcl 30 Mg Tablet PO 30 mg BID [facility] Administration Folic Acid 1 mg 03/26/25 09:00 03/30/25 08:47 Folic Acid 1 Mg Tablet PO 1 mg QAM [facility] Administration Metoprolol Succinate 50 mg 03/27/25 21:00 03/30/25 20:10 Metoprolol Succinate Ext Rel 50 Mg Tabcr PO 50 mg Q12HR [facility] Administration Midodrine 10 mg 03/30/25 11:30 03/30/25 16:27 Midodrine Hcl 10 Mg Tablet PO 10 mg TID [facility] Administration Nitroglycerin 0.4 mg 03/25/25 17:07 Nitroglycerin Sl 0.4 Mg Tablet SUBLINGUAL Q5M PRN Chest Pain Fluticasone/Salmeterol 2 puff 03/25/25 20:00 03/30/25 20:23 Fluticasone/Salmeterol 115-21 Mcg Inhaler 1 Puff INHALATION 2 puff Q12HRT [facility] Administration Tamsulosin HCl 0.8 mg 03/26/25 09:00 03/30/25 08:47 Tamsulosin Hcl 0.4 Mg Capsule PO 0.8 mg QAM [facility] Administration Vitamin D 50 mcg 03/26/25 09:00 03/30/25 08:46 Cholecalciferol (Vitamin D3) 25 Mcg (1,000 Units) Tablet PO 50 mcg DAILY [facility] Administration Radiology Results: ITS Impressions Chest CTA 03/25/25 09:15 IMPRESSION: 1. No pulmonary embolism identified. 2. Small to moderate size left-sided pleural effusion. 3. Small right-sided pleural effusion 4.There are a few reticular and ground glass opacities scattered throughout both lungs. 5.There is a enlarged 1.5 cm subcarinal lymph node. There is a mildly enlarged 1.1 cm right paratracheal lymph node. A follow up chest CT in 3 months is recommended. 6. Mild to moderate left-sided hydronephrosis. Partially visualized stent in the left renal pelvis. 7. Mild right-sided hydronephrosis. 8. Moderate centrilobular and paraseptal emphysema. 9. Probable old compression fractures of the T8, T11 and L2 vertebral bodies. Chest X-Ray 03/25/25 09:32 IMPRESSION: Interstitial lung disease with bilateral pleural effusions (left greater than right). Focal pleural thickening within the lateral margin of the right upper lobe, largely unchanged from previous radiograph dated 01/18/2025. The remainder of the lungs are clear. Labs Labs: Laboratory Results - last 24 hr 03/31/25 03:37 WBC 6.5 RBC 3.08 L Hgb 10.3 L Hct 32.2 L MCV 104.5 H MCH 33.4 MCHC 32.0 RDW 15.2 H Plt Count 267 MPV 10.1 Sodium 133 L Potassium 4.2 Chloride 106 Carbon Dioxide 20 L Anion Gap 7 BUN 22 H Creatinine 1.43 H Estim Creat Clear Calc 50 Estimated GFR 49 L Glucose 102 Calcium 8.4 Magnesium 1.9
[2025-03-31] MEDS: FLUTICASONE/SALMETEROL 115-21 MCG INHALER 1 PUFF 2 PUFF INHALATION ×2 (08:25→20:09)
[2025-03-31] MEDS: ASPIRIN 325 MG ENTERIC TABLET PO (08:47)
[2025-03-31] MEDS: TAMSULOSIN HCL 0.4 MG CAPSULE 0.8 MG PO (08:47)
[2025-03-31] MEDS: DIGOXIN TAB 125 MCG TABLET PO ×2 (08:47→17:00)
[2025-03-31] MEDS: CHOLECALCIFEROL (VITAMIN D3) 25 MCG (1,000 UNITS) TABLET 50 MCG PO (08:47)
[2025-03-31] MEDS: CYANOCOBALAMIN 500 MCG TABLET PO (08:47)
[2025-03-31] MEDS: ATORVASTATIN 40 MG TABLET PO (08:47)
[2025-03-31] MEDS: MIDODRINE HCL 10 MG TABLET PO ×3 (08:47→17:00)
[2025-03-31] MEDS: FOLIC ACID 1 MG TABLET PO (08:48)
[2025-03-31] MEDS: METOPROLOL SUCCINATE EXT REL 50 MG TABCR PO ×2 (08:48→20:15)
[2025-03-31] MEDS: ACETAMINOPHEN 325 MG TABLET 650 MG PO (14:39)
[2025-03-31] MEDS: LINEZOLID 600 MG TABLET PO (17:00)
[2025-04-01] VITALS (25 sets, daily range): BP systolic 89–100; BP diastolic 50–62; PULSE 60–103; RESP 15–20; TEMP 36.4–36.7; O2SAT 92–98
[2025-04-01 04:46] LABS: Hematocrit 31.0 % (42.0-52.0); Hemoglobin 10.1 g/dL (14.0-18.0); Mean Corpuscular HGB Conc 32.6 g/dl (32-36); Mean Corpuscular Hemoglobin 33.8 pg (26-34); Mean Corpuscular Volume 103.7 fl (80-100); Platelet Count Result 271 k/mm3 (150-375); Red Blood Count 2.99 M/mm3 (4.6-6.20); White Blood Count 6.4 K/mm3 (4.5-10.0)
[2025-04-01 05:16] LABS: Anion Gap 6 mmol/L (4-12); Blood Urea Nitrogen 22 mg/dL (9-20); Calcium 8.5 mg/dL (8.4-10.2); Carbon Dioxide 18 mmol/L (22-30); Chloride 108 mmol/L (98-107); Estimated CRCL calculation 51 ml/min; Estimated Glomerular Filt Rate 50; Glucose 95 mg/dL (65-110); Magnesium 1.9 mg/dL (1.6-2.3); Potassium 4.2 mmol/L (3.4-5.0); Sodium 132 mmol/L (137-145)
[2025-04-01] MEDS: FLUTICASONE/SALMETEROL 115-21 MCG INHALER 1 PUFF 2 PUFF INHALATION ×2 (08:10→20:25)
--- NOTE | 2025-04-01 08:12 | P.PNCA_ITS ---
Progress Note: A&P Assessment and Plan (1) Afib: Code(s): I48.91 - Unspecified atrial fibrillation Status: Acute Assessment and Plan: Chronic. [id number] 1. On aspirin. Rate control with Metoprolol but it got fast. On Metoprolol Succinate 50 mg BID, Diltiazem 30 mg BID, Digoxin 125 mcg BID. On Midodrine 10 mg TID to support BP. Heart rate controlled with stable BP. Will sign off, please call with any questions. F/U with me in 2 weeks. (2) Dyslipidemia: Code(s): E78.5 - Hyperlipidemia, unspecified Status: Acute Assessment and Plan: On Atorvastatin. Subjective Date/time seen: 04/01/25 08:12 Interval history: He feels great. Denies chest pain, sob, dizziness, palpitations. Exam Const: General: cooperative, healthy appearing and comfortable Orientation/consciousness: oriented to person, oriented to place and oriented to time Resp: Auscultation: clear to auscultation bilaterally, no crackles, no rales, no rhonchi and no wheezes Cardio: Rate: regular rate Rhythm: abnormal rhythm Heart sounds: no murmurs Peripheral pulses: dorsalis pedis present Neuro: General: oriented to person, oriented to place and oriented to time Extrem: Right lower extremity: no edema Left lower extremity: no edema Objective Data Vital Signs Vital Signs: Vital Signs - 24 hr 03/31/25 08:27 03/31/25 08:47 03/31/25 08:48 Temperature Pulse Rate 122 H 122 H Respiratory Rate Blood Pressure Pulse Oximetry 92 Oxygen Delivery Room Air Fraction of Inspired Oxygen 03/31/25 10:00 03/31/25 10:50 03/31/25 11:48 Temperature Pulse Rate 96 91 119 H Respiratory Rate Blood Pressure 92/51 L 99/63 L Pulse Oximetry Oxygen Delivery Fraction of Inspired Oxygen 03/31/25 11:49 03/31/25 11:49 03/31/25 12:00 Temperature 97.5 F L Pulse Rate 110 H 140 H 96 Respiratory Rate 20 Blood Pressure 130/99 H 124/101 H Pulse Oximetry 95 Oxygen Delivery Fraction of Inspired Oxygen 03/31/25 13:56 03/31/25 15:47 03/31/25 16:00 Temperature 97.9 F Pulse Rate 81 98 82 Respiratory Rate 18 Blood Pressure 92/59 L Pulse Oximetry 91 Oxygen Delivery Fraction of Inspired Oxygen 03/31/25 17:00 03/31/25 18:00 03/31/25 19:28 Temperature 98.3 F Pulse Rate 107 H 78 74 Respiratory Rate 16 Blood Pressure 113/54 L Pulse Oximetry 99 Oxygen Delivery Fraction of Inspired Oxygen 03/31/25 20:00 03/31/25 20:09 03/31/25 20:11 Temperature Pulse Rate 100 120 H 70 Respiratory Rate 20 20 Blood Pressure Pulse Oximetry 93 Oxygen Delivery Room Air Fraction of Inspired Oxygen 21 03/31/25 20:15 03/31/25 22:04 03/31/25 22:32 Temperature Pulse Rate 108 H 102 H 99 Respiratory Rate 14 Blood Pressure Pulse Oximetry 92 Oxygen Delivery Autopap Fraction of Inspired Oxygen 03/31/25 23:44 04/01/25 00:00 04/01/25 02:38 Temperature 98.4 F Pulse Rate 88 88 75 Respiratory Rate 20 Blood Pressure 102/62 Pulse Oximetry 96 Oxygen Delivery Fraction of Inspired Oxygen 04/01/25 03:48 04/01/25 04:00 04/01/25 04:00 Temperature 97.9 F Pulse Rate 86 75 71 Respiratory Rate 16 Blood Pressure 91/58 L Pulse Oximetry 94 98 Oxygen Delivery Room Air Fraction of Inspired Oxygen 04/01/25 06:27 04/01/25 08:05 04/01/25 08:09 Temperature 97.8 F Pulse Rate 75 98 98 Respiratory Rate 18 20 Blood Pressure 96/62 L Pulse Oximetry 94 Oxygen Delivery Fraction of Inspired Oxygen Intake/Output Intake/Output: Intake & Output 03/29/25 03/30/25 03/31/25 04/01/25 23:59 23:59 23:59 23:59 Intake Total 1020 1270 1270 Output Total 1450 1450 1200 Balance -430 -180 70 Meds/Results Medications: Active Medications Generic Name Dose Route Start Last Admin Trade Name Freq PRN Reason Stop Dose Admin Acetaminophen 650 mg 03/30/25 15:18 03/31/25 14:39 Acetaminophen 325 Mg Tablet PO 650 mg Q6H PRN Administration Mild Pain (1-3) or Fever Albuterol 2 puff 03/25/25 17:07 Albuterol Sulfate (*Sp) Aerosol 1 Puff INHALATION Q6HRT PRN shortness of breath or wheezing Aspirin 325 mg 03/26/25 09:00 03/31/25 08:47 Aspirin 325 Mg Enteric Tablet PO 325 mg DAILY [facility] Administration Atorvastatin Calcium 40 mg 03/26/25 09:00 03/31/25 08:47 Atorvastatin 40 Mg Tablet PO 40 mg DAILY [facility] Administration Cyanocobalamin 500 mcg 03/26/25 09:00 03/31/25 08:47 Cyanocobalamin 500 Mcg Tablet PO 500 mcg QAM [facility] Administration Digoxin 125 mcg 03/25/25 17:00 03/31/25 17:00 Digoxin Tab 125 Mcg Tablet PO 125 mcg BID [facility] Administration Diltiazem HCl 30 mg 03/30/25 17:00 03/31/25 17:00 Diltiazem Hcl 30 Mg Tablet PO 30 mg BID [facility] Administration Folic Acid 1 mg 03/26/25 09:00 03/31/25 08:48 Folic Acid 1 Mg Tablet PO 1 mg QAM [facility] Administration Linezolid 600 mg 03/31/25 18:00 03/31/25 17:00 Linezolid 600 Mg Tablet PO 04/07/25 09:01 600 mg Q12HR [facility] Administration Metoprolol Succinate 50 mg 03/27/25 21:00 03/31/25 20:15 Metoprolol Succinate Ext Rel 50 Mg Tabcr PO 50 mg Q12HR [facility] Administration Midodrine 10 mg 03/30/25 11:30 03/31/25 17:00 Midodrine Hcl 10 Mg Tablet PO 10 mg TID [facility] Administration Nitroglycerin 0.4 mg 03/25/25 17:07 Nitroglycerin Sl 0.4 Mg Tablet SUBLINGUAL Q5M PRN Chest Pain Fluticasone/Salmeterol 2 puff 03/25/25 20:00 04/01/25 08:10 Fluticasone/Salmeterol 115-21 Mcg Inhaler 1 Puff INHALATION 2 puff Q12HRT [facility] Administration Tamsulosin HCl 0.8 mg 03/26/25 09:00 03/31/25 08:47 Tamsulosin Hcl 0.4 Mg Capsule PO 0.8 mg QAM [facility] Administration Vitamin D 50 mcg 03/26/25 09:00 03/31/25 08:47 Cholecalciferol (Vitamin D3) 25 Mcg (1,000 Units) Tablet PO 50 mcg DAILY [facility] Administration Radiology Results: ITS Impressions Chest CTA 03/25/25 09:15 IMPRESSION: 1. No pulmonary embolism identified. 2. Small to moderate size left-sided pleural effusion. 3. Small right-sided pleural effusion 4.There are a few reticular and ground glass opacities scattered throughout both lungs. 5.There is a enlarged 1.5 cm subcarinal lymph node. There is a mildly enlarged 1.1 cm right paratracheal lymph node. A follow up chest CT in 3 months is recommended. 6. Mild to moderate left-sided hydronephrosis. Partially visualized stent in the left renal pelvis. 7. Mild right-sided hydronephrosis. 8. Moderate centrilobular and paraseptal emphysema. 9. Probable old compression fractures of the T8, T11 and L2 vertebral bodies. Chest X-Ray 03/25/25 09:32 IMPRESSION: Interstitial lung disease with bilateral pleural effusions (left greater than right). Focal pleural thickening within the lateral margin of the right upper lobe, larg colette unchanged from previous radiograph dated 01/18/2025. The remainder of the lungs are clear. Labs Labs: Laboratory Results - last 24 hr 04/01/25 03:56 WBC 6.4 RBC 2.99 L Hgb 10.1 L Hct 31.0 L MCV 103.7 H MCH 33.8 MCHC 32.6 RDW 14.9 H Plt Count 271 MPV 10.3 Sodium 132 L Potassium 4.2 Chloride 108 H Carbon Dioxide 18 L Anion Gap 6 BUN 22 H Creatinine 1.42 H Estim Creat Clear Calc 51 Estimated GFR 50 L Glucose 95 Calcium 8.5 Magnesium 1.9
--- NOTE | 2025-04-01 08:17 | P.PNIM_ITS ---
Progress Note: A&P Assessment and Plan (1) Afib: Code(s): I48.91 - Unspecified atrial fibrillation Status: Acute (2) Atrial fibrillation with RVR: Code(s): I48.91 - Unspecified atrial fibrillation Status: Acute (3) New onset atrial fibrillation: Code(s): I48.91 - Unspecified atrial fibrillation Status: Acute (4) Acute renal failure: Qualifiers: Acute renal failure type: unspecified Qualified Code(s): N17.9 - Acute kidney failure, unspecified Code(s): N17.9 - Acute kidney failure, unspecified Status: Acute (5) Bladder wall thickening: Code(s): N32.89 - Other specified disorders of bladder Status: Acute (6) Mass of bladder: Code(s): N32.89 - Other specified disorders of bladder Status: Acute Plan patient was found to have A. Fib RVR however patient BP was on soft side, and was started on Amiodarone drip, patient was seen by supervisor word processing and transition him to digoxin 125mcg BID and Metoprolol tartrate tab 25mg q6hr, will wean patient of amiodarone drip, will monitor, patient stats he has A. Fib for a longtime under stress as he was in for urologic procedure resulted RVR, patient is not on any anticoagulation due to low CHADES score is low, will monitor and plan. Patient remains clinically stable, his BP is still soft and and HR is fluctuating, seen by supervisor word processing and increased midodrine 5mg TID from 2.5mg BID, and increased Metoprolol succinate to 50mg BID stopped amiodarone 200mg PO BID, added diltiazem 15 BID, while at rest patient HR is close 110 however with exertion it climbs to over 150, still his BP is soft today, will monitor and plan. supervisor word processing increased diltiazem to 30mg BID, will monitor, if there is no improvement, patient may need to consult EP and further recommendation to follow. patient urine is growing Vanco Res Enterococcus faecium, discuss with clinical pharmacist started the patient on linezolid. will monitor Subjective Date/time seen: 03/31/25 08:17 Interval history: patient was found to have A. Fib RVR however patient BP was on soft side, and was started on Amiodarone drip, patient was seen by supervisor word processing and transition him to digoxin 125mcg BID and Metoprolol tartrate tab 25mg q6hr, will wean patient of amiodarone drip, will monitor, patient stats he has A. Fib for a longtime under stress as he was in for urologic procedure resulted RVR, patient is not on any anticoagulation due to low CHADES score is low, will monitor and plan. Patient remains clinically stable, his BP is still soft and and HR is fluctuating, seen by supervisor word processing and increased midodrine 5mg TID from 2.5mg BID, and increased Metoprolol succinate to 50mg BID stopped amiodarone 200mg PO BID, added diltiazem 15 BID, while at rest patient HR is close 110 however with exertion it climbs to over 150, still his BP is soft today, will monitor and plan. supervisor word processing increased diltiazem to 30mg BID, will monitor, if there is no improvement, patient may need to consult EP and further recommendation to follow. patient urine is growing Vanco Res Enterococcus faecium, discuss with clinical pharmacist started the patient on linezolid. will monitor Review of Systems Review of Systems: All systems reviewed & are unremarkable except as noted in HPI and below Exam Narrative: Appears chronically ill Patient is comfortable, NAD HEENT: eyes are clear and none icteric LUNGS:CTA HEART: Irregularly irregular ABD: BS+, Soft and nontender Lower extremities: no edema SKIN: nonjaundiced Neuro: grossly intact. Objective Data Vital Signs Vital Signs: Vital Signs - 24 hr 03/31/25 08:27 03/31/25 08:47 03/31/25 08:48 Temperature Pulse Rate 122 H 122 H Respiratory Rate Blood Pressure Pulse Oximetry 92 Oxygen Delivery Room Air Fraction of Inspired Oxygen 03/31/25 10:00 03/31/25 10:50 03/31/25 11:48 Temperature Pulse Rate 96 91 119 H Respiratory Rate Blood Pressure 92/51 L 99/63 L Pulse Oximetry Oxygen Delivery Fraction of Inspired Oxygen 03/31/25 11:49 03/31/25 11:49 03/31/25 12:00 Temperature 36.4 C L Pulse Rate 110 H 140 H 96 Respiratory Rate 20 Blood Pressure 130/99 H 124/101 H Pulse Oximetry 95 Oxygen Delivery Fraction of Inspired Oxygen 03/31/25 13:56 03/31/25 15:47 03/31/25 16:00 Temperature 36.6 C Pulse Rate 81 98 82 Respiratory Rate 18 Blood Pressure 92/59 L Pulse Oximetry 91 Oxygen Delivery Fraction of Inspired Oxygen 03/31/25 17:00 03/31/25 18:00 03/31/25 19:28 Temperature 36.8 C Pulse Rate 107 H 78 74 Respiratory Rate 16 Blood Pressure 113/54 L Pulse Oximetry 99 Oxygen Delivery Fraction of Inspired Oxygen 03/31/25 20:00 03/31/25 20:09 03/31/25 20:11 Temperature Pulse Rate 100 120 H 70 Respiratory Rate 20 20 Blood Pressure Pulse Oximetry 93 Oxygen Delivery Room Air Fraction of Inspired Oxygen 03/31/25 20:15 03/31/25 22:04 03/31/25 22:32 Temperature Pulse Rate 108 H 102 H 99 Respiratory Rate 14 Blood Pressure Pulse Oximetry 92 Oxygen Delivery Autopap Fraction of Inspired Oxygen 03/31/25 23:44 04/01/25 00:00 04/01/25 02:38 Temperature 36.9 C Pulse Rate 88 88 75 Respiratory Rate 20 Blood Pressure 102/62 Pulse Oximetry 96 Oxygen Delivery Fraction of Inspired Oxygen 04/01/25 03:48 04/01/25 04:00 04/01/25 04:00 Temperature 36.6 C Pulse Rate 86 75 71 Respiratory Rate 16 Blood Pressure 91/58 L Pulse Oximetry 94 98 Oxygen Delivery Room Air Fraction of Inspired Oxygen 04/01/25 06:27 04/01/25 08:02 04/01/25 08:05 Temperature Pulse Rate 75 101 H 98 Respiratory Rate 18 18 Blood Pressure Pulse Oximetry Oxygen Delivery Fraction of Inspired Oxygen 04/01/25 08:09 04/01/25 08:13 Temperature 36.6 C Pulse Rate 98 Respiratory Rate 20 Blood Pressure 96/62 L Pulse Oximetry 94 96 Oxygen Delivery Room Air Fraction of Inspired Oxygen Intake/Output Intake/Output: Intake & Output 03/29/25 03/30/25 03/31/25 04/01/25 23:59 23:59 23:59 23:59 Intake Total 1020 1270 1270 Output Total 1450 1450 1200 Balance -430 -180 70 Meds/Results Medications: Active Medications Generic Name Dose Route Start Last Admin Trade Name Freq PRN Reason Stop Dose Admin Acetaminophen 650 mg 03/30/25 15:18 03/31/25 14:39 Acetaminophen 325 Mg Tablet PO 650 mg Q6H PRN Administration Mild Pain (1-3) or Fever Albuterol 2 puff 03/25/25 17:07 Albuterol Sulfate (*Sp) Aerosol 1 Puff INHALATION Q6HRT PRN shortness of breath or wheezing Aspirin 325 mg 03/26/25 09:00 03/31/25 08:47 Aspirin 325 Mg Enteric Tablet PO 325 mg DAILY BANG Administration Atorvastatin Calcium 40 mg 03/26/25 09:00 03/31/25 08:47 Atorvastatin 40 Mg Tablet PO 40 mg DAILY BANG Administration Cyanocobalamin 500 mcg 03/26/25 09:00 03/31/25 08:47 Cyanocobalamin 500 Mcg Tablet PO 500 mcg QAM BANG Administration Digoxin 125 mcg 03/25/25 17:00 03/31/25 17:00 Digoxin Tab 125 Mcg Tablet PO 125 mcg BID BANG Administration Diltiazem HCl 30 mg 03/30/25 17:00 03/31/25 17:00 Diltiazem Hcl 30 Mg Tablet PO 30 mg BID BANG Administration Folic Acid 1 mg 03/26/25 09:00 03/31/25 08:48 Folic Acid 1 Mg Tablet PO 1 mg QAM BANG Administration Linezolid 600 mg 03/31/25 18:00 03/31/25 17:00 Linezolid 600 Mg Tablet PO 04/07/25 09:01 600 mg Q12HR BANG Administration Metoprolol Succinate 50 mg 03/27/25 21:00 03/31/25 20:15 Metoprolol Succinate Ext Rel 50 Mg Tabcr PO 50 mg Q12HR BANG Administration Midodrine 10 mg 03/30/25 11:30 03/31/25 17:00 Midodrine Hcl 10 Mg Tablet PO 10 mg TID BANG Administration Nitroglycerin 0.4 mg 03/25/25 17:07 Nitroglycerin Sl 0.4 Mg Tablet SUBLINGUAL Q5M PRN Chest Pain Fluticasone/Salmeterol 2 puff 03/25/25 20:00 04/01/25 08:10 Fluticasone/Salmeterol 115-21 Mcg Inhaler 1 Puff INHALATION 2 puff Q12HRT BANG Administration Tamsulosin HCl 0.8 mg 03/26/25 09:00 03/31/25 08:47 Tamsulosin Hcl 0.4 Mg Capsule PO 0.8 mg QAM BANG Administration Vitamin D 50 mcg 03/26/25 09:00 03/31/25 08:47 Cholecalciferol (Vitamin D3) 25 Mcg (1,000 Units) Tablet PO 50 mcg DAILY BANG Administration Radiology Results: ITS Impressions Chest CTA 03/25/25 09:15 IMPRESSION: 1. No pulmonary embolism identified. 2. Small to moderate size left-sided pleural effusion. 3. Small right-sided pleural effusion 4.There are a few reticular and ground glass opacities scattered throughout both lungs. 5.There is a enlarged 1.5 cm subcarinal lymph node. There is a mildly enlarged 1.1 cm right paratracheal lymph node. A follow up chest CT in 3 months is recommended. 6. Mild to moderate left-sided hydronephrosis. Partially visualized stent in the left renal pelvis. 7. Mild right-sided hydronephrosis. 8. Moderate centrilobular and paraseptal emphysema. 9. Probable old compression fractures of the T8, T11 and L2 vertebral bodies. Chest X-Ray 03/25/25 09:32 IMPRESSION: Interstitial lung disease with bilateral pleural effusions (left greater than right). Focal pleural thickening within the lateral margin of the right upper lobe, largely unchanged from previous radiograph dated 01/18/2025. The remainder of the lungs are clear. Labs Labs: Laboratory Results - last 24 hr 04/01/25 03:56 WBC 6.4 RBC 2.99 L Hgb 10.1 L Hct 31.0 L MCV 103.7 H MCH 33.8 MCHC 32.6 RDW 14.9 H Plt Count 271 MPV 10.3 Sodium 132 L Potassium 4.2 Chloride 108 H Carbon Dioxide 18 L Anion Gap 6 BUN 22 H Creatinine 1.42 H Estim Creat Clear Calc 51 Estimated GFR 50 L Glucose 95 Calcium 8.5 Magnesium 1.9 Quality VTE Prophylaxis VTE prophylaxis: mechanical ordered
[2025-04-01] MEDS: TAMSULOSIN HCL 0.4 MG CAPSULE 0.8 MG PO (08:48)
[2025-04-01] MEDS: FOLIC ACID 1 MG TABLET PO (08:48)
[2025-04-01] MEDS: DIGOXIN TAB 125 MCG TABLET PO ×2 (08:48→16:20)
[2025-04-01] MEDS: CHOLECALCIFEROL (VITAMIN D3) 25 MCG (1,000 UNITS) TABLET 50 MCG PO (08:48)
[2025-04-01] MEDS: METOPROLOL SUCCINATE EXT REL 50 MG TABCR PO ×2 (08:48→20:19)
[2025-04-01] MEDS: ATORVASTATIN 40 MG TABLET PO (08:48)
[2025-04-01] MEDS: LINEZOLID 600 MG TABLET PO ×2 (08:48→20:20)
[2025-04-01] MEDS: MIDODRINE HCL 10 MG TABLET PO ×3 (08:48→16:20)
[2025-04-01] MEDS: CYANOCOBALAMIN 500 MCG TABLET PO (08:48)
[2025-04-01] MEDS: ASPIRIN 325 MG ENTERIC TABLET PO (08:48)
--- NOTE | 2025-04-01 09:40 | PCNWS ---
Weekly nutritional screen. Patient is tolerating current Heart healthy diet with adequate intake, 100% all meals. No weight loss reported. No nutritional needs at this time.
--- NOTE | 2025-04-01 16:47 | PM.DS ---
DS: Admitting Diagnosis Discharge Date 04/01/25 Admitting Diagnosis A. Fib RVR DS: Discharge Diagnosis Discharge Diagnosis (1) Afib: Code(s): I48.91 - Unspecified atrial fibrillation Status: Acute (2) Atrial fibrillation with RVR: Code(s): I48.91 - Unspecified atrial fibrillation Status: Acute (3) New onset atrial fibrillation: Code(s): I48.91 - Unspecified atrial fibrillation Status: Acute (4) Acute renal failure: Qualifiers: Acute renal failure type: unspecified Qualified Code(s): N17.9 - Acute kidney failure, unspecified Code(s): N17.9 - Acute kidney failure, unspecified Status: Acute (5) Bladder wall thickening: Code(s): N32.89 - Other specified disorders of bladder Status: Acute (6) Mass of bladder: Code(s): N32.89 - Other specified disorders of bladder Status: Acute Plan patient was found to have A. Fib RVR however patient BP was on soft side, and was started on Amiodarone drip, patient was seen by dispatcher street department and transition him to digoxin 125mcg BID and Metoprolol tartrate tab 25mg q6hr, will wean patient of amiodarone drip, will monitor, patient stats he has A. Fib for a longtime under stress as he was in for urologic procedure resulted RVR, patient is not on any anticoagulation due to low CHADES score is low, will monitor and plan. Patient remains clinically stable, his BP is still soft and and HR is fluctuating, seen by dispatcher street department and increased midodrine 5mg TID from 2.5mg BID, and increased Metoprolol succinate to 50mg BID stopped amiodarone 200mg PO BID, added diltiazem 15 BID, while at rest patient HR is close 110 however with exertion it climbs to over 150, still his BP is soft today, will monitor and plan. dispatcher street department increased diltiazem to 30mg BID, will monitor, if there is no improvement, patient may need to consult EP and further recommendation to follow. patient urine is growing Vanco Res Enterococcus faecium, discuss with clinical pharmacist started the patient on linezolid. patient remains clinically stable his HR is stable, was seen by his dispatcher street department, will discharge patient today. DS: Summary Hospital Course Hospital Course: Patient remains clinically stable, his BP is still soft and and HR is fluctuating, seen by dispatcher street department and increased midodrine 5mg TID from 2.5mg BID, and increased Metoprolol succinate to 50mg BID stopped amiodarone 200mg PO BID, added diltiazem 15 BID, while at rest patient HR is close 110 however with exertion it climbs to over 150, still his BP is soft today, will monitor and plan. dispatcher street department increased diltiazem to 30mg BID, will monitor, if there is no improvement, patient may need to consult EP and further recommendation to follow. patient urine is growing Vanco Res Enterococcus faecium, discuss with clinical pharmacist started the patient on linezolid. patient remains clinically stable his HR is stable, was seen by his dispatcher street department, will discharge patient today. Patient was seen by his dispatcher street department and patient can be discharged, patient is not sure, will recheck patient this evening, if he feels comfortable going home will discharge the home, patient to follow up with his dispatcher street department, urologist and primary care provider as scheduled, patient is instructed if any symptoms redevelop to go to nearest ER. Time Spent with Patient Time attestation: Total time spent providing and/or coordinating discharge services: Exam Narrative: Appears chronically ill Patient is comfortable, NAD HEENT: eyes are clear and none icteric LUNGS:CTA HEART: Irregularly irregular ABD: BS+, Soft and nontender Lower extremities: no edema SKIN: nonjaundiced Neuro: grossly intact. DS: Data Data Completed and Pending Labs on day of discharge: Labs from last 24 hours 04/01/25 03:56 WBC 6.4 RBC 2.99 L Hgb 10.1 L Hct 31.0 L MCV 103.7 H MCH 33.8 MCHC 32.6 RDW 14.9 H Plt Count 271 MPV 10.3 Sodium 132 L Potassium 4.2 Chloride 108 H Carbon Dioxide 18 L Anion Gap 6 BUN 22 H Creatinine 1.42 H Estim Creat Clear Calc 51 Estimated GFR 50 L Glucose 95 Calcium 8.5 Magnesium 1.9 Discharge Plan Discharge Attending physician on discharge: Trent Landry Consulting providers: Jorge Alberto Carlson; Lon Foster; Rupesh Robledo; Karen José; Kahlil Oropeza Discharging Clinician: Trent Landry Patient Disposition: Home Activity: as tolerated Diet: heart healthy Discharge Instructions: Patient was seen by his dispatcher street department and patient can be discharged, patient is not sure, will recheck patient this evening, if he feels comfortable going home will discharge the home, patient to follow up with his cardilogist, urologist and primary care provider as scheduled, patient is instructed if any symptoms redevelop to go to nearest ER. Patient Instructions: Antibiotic Form Patient Language: Persian Stand Alone Forms: General Discharge Information Follow-up/Referrals: Evgeny*,STELLA Dos Santos [Primary Care Provider, Unknown] Jorge Alberto Carlson DO [Physician, Cardiology] Discharge Medications: New linezolid 600 mg Tablet 600 mg PO Q12HR Qty: 12 0RF digoxin 125 mcg (0.125 mg) Tablet 125 mcg PO BID Qty: 60 0RF diltiazem HCl 30 mg Tablet 30 mg PO BID Qty: 60 0RF metoprolol succinate 50 mg tablet extended release 24 hr 50 mg PO BID Qty: 60 0RF Continued nitroglycerin 0.4 mg tablet, sublingual 0.4 mg sublingual Q5M PRN (Reason: Chest Pain) Rx Instructions: do not exceed 3 doses per episode vitamin [id number] acid 0.5-1 mg tablet 1 tablet PO DAILY Patient Comments: . aspirin 325 mg tablet,delayed release (DR/EC) 325 mg PO DAILY Patient Comments: HOLD 7 DAYS PRE-OP , TAKE 81MG DAILY WHILE 325MG IS ON HOLD atorvastatin 40 mg tablet 40 mg PO DAILY tamsulosin 0.4 mg capsule 0.8 mg PO QAM albuterol sulfate 90 mcg/actuation HFA aerosol inhaler 2 puff INHALATION Q6H PRN (Reason: shortness of breath or wheezing) Patient Comments: .. budesonide-formoterol [Symbicort] 160-4.5 mcg/actuation HFA aerosol inhaler 2 puff INHALATION DAILY cholecalciferol (vitamin D3) 50 mcg (2,000 unit) capsule 50 mcg PO DAILY Discontinued metoprolol succinate 50 mg tablet extended release 24 hr 50 mg PO BID Qty: 60 5RF Date of admission: 03/26/25 15:01 Primary Care Provider: Raya Arndt Admitting Provider: Trent Landry Attending physician on admission: Trent Landry Condition: Stable
[2025-04-02] VITALS (14 sets, daily range): BP systolic 90–115; BP diastolic 54–98; PULSE 75–181; RESP 16–26; TEMP 36.5–36.6; O2SAT 94–97
--- NOTE | 2025-04-02 02:51 | PCRCNOTE ---
RT observed Bruno Xiong breathing at this check; RN informed
[2025-04-02 04:13] LABS: Hematocrit 32.3 % (42.0-52.0); Hemoglobin 10.4 g/dL (14.0-18.0); Mean Corpuscular HGB Conc 32.2 g/dl (32-36); Mean Corpuscular Hemoglobin 33.3 pg (26-34); Mean Corpuscular Volume 103.5 fl (80-100); Platelet Count Result 282 k/mm3 (150-375); Red Blood Count 3.12 M/mm3 (4.6-6.20); White Blood Count 5.6 K/mm3 (4.5-10.0)
[2025-04-02 04:25] LABS: Anion Gap 3 mmol/L (4-12); Blood Urea Nitrogen 22 mg/dL (9-20); Calcium 8.5 mg/dL (8.4-10.2); Carbon Dioxide 22 mmol/L (22-30); Chloride 106 mmol/L (98-107); Estimated CRCL calculation 48 ml/min; Estimated Glomerular Filt Rate 46; Glucose 96 mg/dL (65-110); Magnesium 1.9 mg/dL (1.6-2.3); Potassium 4.3 mmol/L (3.4-5.0); Sodium 131 mmol/L (137-145)
[2025-04-02] MEDS: FLUTICASONE/SALMETEROL 115-21 MCG INHALER 1 PUFF 2 PUFF INHALATION (07:34)
[2025-04-02] MEDS: MIDODRINE HCL 10 MG TABLET PO ×2 (08:35→12:59)
[2025-04-02] MEDS: TAMSULOSIN HCL 0.4 MG CAPSULE 0.8 MG PO (08:35)
[2025-04-02] MEDS: METOPROLOL SUCCINATE EXT REL 50 MG TABCR PO (08:35)
[2025-04-02] MEDS: LINEZOLID 600 MG TABLET PO (08:35)
[2025-04-02] MEDS: CYANOCOBALAMIN 500 MCG TABLET PO (08:35)
[2025-04-02] MEDS: ATORVASTATIN 40 MG TABLET PO (08:36)
[2025-04-02] MEDS: CHOLECALCIFEROL (VITAMIN D3) 25 MCG (1,000 UNITS) TABLET 50 MCG PO (08:36)
[2025-04-02] MEDS: FOLIC ACID 1 MG TABLET PO (08:36)
[2025-04-02] MEDS: DIGOXIN TAB 125 MCG TABLET PO (08:36)
[2025-04-02] MEDS: ASPIRIN 325 MG ENTERIC TABLET PO (08:36)
--- NOTE | 2025-04-02 14:03 | PM.IMPN ---
Subjective Date/time seen: 04/02/25 14:03 Interval history: Patient was discharged yesterday however he spent one more night and discharged this morning Objective Data Vital Signs Vital Signs: Vital Signs - 24 hr 04/01/25 16:00 04/01/25 16:17 04/01/25 16:20 Temperature 98.0 F Pulse Rate 101 H 99 99 Pulse Rate [With Activity During Therapy Session] Respiratory Rate 18 Blood Pressure 100/60 Pulse Oximetry 93 Oxygen Delivery 04/01/25 18:00 04/01/25 20:00 04/01/25 20:00 Temperature 97.9 F Pulse Rate 69 74 Pulse Rate [With Activity During Therapy Session] Respiratory Rate 16 Blood Pressure 90/50 L Pulse Oximetry 97 Oxygen Delivery Room Air 04/01/25 20:00 04/01/25 20:19 04/01/25 20:25 Temperature Pulse Rate 60 97 71 Pulse Rate [With Activity During Therapy Session] Respiratory Rate 16 Blood Pressure Pulse Oximetry Oxygen Delivery 04/01/25 20:35 04/01/25 22:00 04/01/25 23:45 Temperature Pulse Rate 71 86 Pulse Rate [With Activity During Therapy Session] Respiratory Rate 16 15 Blood Pressure Pulse Oximetry 92 Oxygen Delivery Room Air Autopap 04/02/25 00:00 04/02/25 00:00 04/02/25 00:00 Temperature 98 F Pulse Rate 81 78 Pulse Rate [With Activity During Therapy Session] Respiratory Rate 16 Blood Pressure 97/54 L Pulse Oximetry 95 Oxygen Delivery CPAP 04/02/25 02:00 04/02/25 02:33 04/02/25 04:00 Temperature Pulse Rate 81 Pulse Rate [With Activity During Therapy Session] Respiratory Rate 26 H Blood Pressure Pulse Oximetry Oxygen Delivery Autopap CPAP 04/02/25 04:00 04/02/25 04:00 04/02/25 06:00 Temperature 98 F Pulse Rate 93 88 82 Pulse Rate [With Activity During Therapy Session] Respiratory Rate 20 Blood Pressure 90/56 L Pulse Oximetry 94 Oxygen Delivery 04/02/25 07:38 04/02/25 07:38 04/02/25 08:00 Temperature 97.7 F Pulse Rate 75 75 103 H Pulse Rate [With Activity During Therapy Session] Respiratory Rate 16 18 Blood Pressure 115/98 H Pulse Oximetry 95 97 Oxygen Delivery Room Air 04/02/25 08:00 04/02/25 08:00 04/02/25 08:10 Temperature Pulse Rate 93 Pulse Rate [With Activity During Therapy Session] Respiratory Rate Blood Pressure Pulse Oximetry Oxygen Delivery Room Air Room Air 04/02/25 08:35 04/02/25 08:36 04/02/25 08:54 Temperature Pulse Rate 125 H 125 H Pulse Rate [With Activity During Therapy Session] 181 H Respiratory Rate Blood Pressure Pulse Oximetry Oxygen Delivery Room Air 04/02/25 10:00 04/02/25 11:57 04/02/25 12:00 Temperature 97.7 F Pulse Rate 105 H 88 Pulse Rate [With Activity During Therapy Session] Respiratory Rate 18 Blood Pressure 98/65 L Pulse Oximetry 97 Oxygen Delivery Room Air 04/02/25 12:00 Temperature Pulse Rate 92 Pulse Rate [With Activity During Therapy Session] Respiratory Rate Blood Pressure Pulse Oximetry Oxygen Delivery Intake/Output Intake/Output: Intake & Output 03/30/25 03/31/25 04/01/25 04/02/25 23:59 23:59 23:59 23:59 Intake Total 1270 1270 1480 780 Output Total 1450 1200 1275 450 Balance -180 70 205 330 Meds/Results Medications: Active Medications Generic Name Dose Route Start Last Admin Trade Name Freq PRN Reason Stop Dose Admin Acetaminophen 650 mg 03/30/25 15:18 03/31/25 14:39 Acetaminophen 325 Mg Tablet PO 650 mg Q6H PRN Administration Mild Pain (1-3) or Fever Albuterol 2 puff 03/25/25 17:07 Albuterol Sulfate (*Sp) Aerosol 1 Puff INHALATION Q6HRT PRN shortness of breath or wheezing Aspirin 325 mg 03/26/25 09:00 04/02/25 08:36 Aspirin 325 Mg Enteric Tablet PO 325 mg DAILY BANG Administration Atorvastatin Calcium 40 mg 03/26/25 09:00 04/02/25 08:36 Atorvastatin 40 Mg Tablet PO 40 mg DAILY BANG Administration Cyanocobalamin 500 mcg 03/26/25 09:00 04/02/25 08:35 Cyanocobalamin 500 Mcg Tablet PO 500 mcg QAM BANG Administration Digoxin 125 mcg 03/25/25 17:00 04/02/25 08:36 Digoxin Tab 125 Mcg Tablet PO 125 mcg BID BANG Administration Diltiazem HCl 30 mg 03/30/25 17:00 04/02/25 08:35 Diltiazem Hcl 30 Mg Tablet PO 30 mg BID BANG Administration Folic Acid 1 mg 03/26/25 09:00 04/02/25 08:36 Folic Acid 1 Mg Tablet PO 1 mg QAM BANG Administration Linezolid 600 mg 03/31/25 18:00 04/02/25 08:35 Linezolid 600 Mg Tablet PO 04/07/25 09:01 600 mg Q12HR BANG Administration Metoprolol Succinate 50 mg 03/27/25 21:00 04/02/25 08:35 Metoprolol Succinate Ext Rel 50 Mg Tabcr PO 50 mg Q12HR BANG Administration Midodrine 10 mg 03/30/25 11:30 04/02/25 12:59 Midodrine Hcl 10 Mg Tablet PO 10 mg TID BANG Administration Nitroglycerin 0.4 mg 03/25/25 17:07 Nitroglycerin Sl 0.4 Mg Tablet SUBLINGUAL Q5M PRN Chest Pain Fluticasone/Salmeterol 2 puff 03/25/25 20:00 04/02/25 07:34 Fluticasone/Salmeterol 115-21 Mcg Inhaler 1 Puff INHALATION 2 puff Q12HRT BANG Administration Tamsulosin HCl 0.8 mg 03/26/25 09:00 04/02/25 08:35 Tamsulosin Hcl 0.4 Mg Capsule PO 0.8 mg QAM BNAG Administration Vitamin D 50 mcg 03/26/25 09:00 04/02/25 08:36 Cholecalciferol (Vitamin D3) 25 Mcg (1,000 Units) Tablet PO 50 mcg DAILY BANG Administration Radiology Results: ITS Impressions Chest CTA 03/25/25 09:15 IMPRESSION: 1. No pulmonary embolism identified. 2. Small to moderate size left-sided pleural effusion. 3. Small right-sided pleural effusion 4.There are a few reticular and ground glass opacities scattered throughout both lungs. 5.There is a enlarged 1.5 cm subcarinal lymph node. There is a mildly enlarged 1.1 cm right paratracheal lymph node. A follow up chest CT in 3 months is recommended. 6. Mild to moderate left-sided hydronephrosis. Partially visualized stent in the left renal pelvis. 7. Mild right-sided hydronephrosis. 8. Moderate centrilobular and paraseptal emphysema. 9. Probable old compression fractures of the T8, T11 and L2 vertebral bodies. Chest X-Ray 03/25/25 09:32 IMPRESSION: Interstitial lung disease with bilateral pleural effusions (left greater than right). Focal pleural thickening within the lateral margin of the right upper lobe, largely unchanged from previous radiograph dated 01/18/2025. The remainder of the lungs are clear. Labs Labs: Laboratory Results - last 24 hr 04/02/25 03:49 WBC 5.6 RBC 3.12 L Hgb 10.4 L Hct 32.3 L MCV 103.5 H MCH 33.3 MCHC 32.2 RDW 15.1 H Plt Count 282 MPV 10.2 Sodium 131 L Potassium 4.3 Chloride 106 Carbon Dioxide 22 Anion Gap 3 L BUN 22 H Creatinine 1.51 H Estim Creat Clear Calc 48 Estimated GFR 46 L Glucose 96 Calcium 8.5 Magnesium 1.9
--- NOTE | 2025-04-06 06:06 | WPDURCON ---
Assessment and Plan Assessment and plan (1) Hydroureteronephrosis: Code(s): N13.30 - Unspecified hydronephrosis Status: Acute Assessment and Plan: Will reschedule cysto./bilateral stent exchange once cardiac issues addressed. Urology Consult Note HPI Date Seen: 04/06/25 Requesting Physician: Trent Landry MD Primary Care Provider: Raya Lozoya, PA Consult Narrative Narrative: Stanislav Cho is a 69 year old male was scheduled for cystoscopy, bilateral stent exchange on 03/25/25. During preoperative preparation it was noted patient had a rapid ventricular response to chronic atrial fibrillation. His case was canceled and he was sent to the emergency department for further evaluation. Review of Systems Review of Systems: All systems reviewed & are unremarkable except as noted in HPI and below PMFSH Past Medical History Medical History Emphysema lung Acute arthritis Rheumatoid osteoperiostitis Afib Surgical History Surgical History History of surgery on arm History of shoulder surgery Family History Family History Sibling Heart disease Skin cancer Social History Social History Smoking packs per day: 1 Smoking cigarettes per day: 20.0 Years smoked: 45 Smoking pack-years: 45.00 Smoking status: Former smoker Tobacco type: cigarettes Second hand tobacco smoke exposure: No Smoking end date: 02/26/25 Alcohol intake: former Drinks per week: 4 Alcohol use details: QUIT 2021 4-5 BEERS DAILY Substance use: current Substance use type: marijuana Other substance usage details: daily use Last use: 11/30/24 Do You Feel Safe in your Home?: Yes Lack of Transportation: No Lack of Food: Never True Current Housing: I Have Housing Concerned About Future Housing: No Difficulty Paying Gas/Electric Bills: No Difficulty Paying for Meds: No Currently Unemployed: No Education: High School Diploma/GED Difficulty w/ Childcare or Family Care: No Living arrangements: alone Gender identity (if verbalized by the patient): Male Spiritual care concerns: No Meds Home Medications and Allergies Home Medications ?Medication ?Instructions ?Recorded ?Confirmed ?Type nitroglycerin 0.4 mg sublingual 0.4 mg sublingual Q5M PRN Chest 02/09/21 03/25/25 History tablet Pain vitamin B12 0.5 mg-folic acid 1 mg 1 tablet PO DAILY 02/09/21 03/25/25 History tablet aspirin 325 mg tablet,delayed 325 mg PO DAILY 12/20/21 03/25/25 History release atorvastatin 40 mg tablet 40 mg PO DAILY 12/27/21 03/25/25 History tamsulosin 0.4 mg capsule 0.8 mg PO QAM 02/18/23 03/25/25 History albuterol sulfate 90 mcg/actuation 2 puff inhalation Q6H PRN 12/02/24 03/25/25 History aerosol inhaler shortness of breath or wheezing budesonide-formoterol HFA 160 2 puff inhalation DAILY 12/02/24 03/25/25 History mcg-4.5 mcg/actuation aerosol inhaler (Symbicort) cholecalciferol (vitamin D3) 50 50 mcg PO DAILY 03/15/25 03/25/25 History mcg (2,000 unit) capsule digoxin 125 mcg (0.125 mg) tablet 125 mcg PO BID #60 tabs 04/01/25 04/05/25 Rx diltiazem HCl 30 mg tablet 30 mg PO BID #60 tabs 04/01/25 04/05/25 Rx linezolid 600 mg tablet 600 mg PO Q12HR #12 tabs 04/01/25 04/05/25 Rx metoprolol succinate 50 mg 50 mg PO BID #60 tabs 04/01/25 04/05/25 Rx tablet,extended release 24 hr Allergies Allergy/AdvReac Type Severity Reaction Status Date / Time No Known Allergies Allergy Verified 04/05/25 11:36 Results Labs 04/02/25 03:49 04/02/25 03:49
== END 2025-04-02 15:28 | disposition home or self-care (01) | DRG 309 ==
LOC: ANHED 11:16 → ANHIMU 12:54
PROVIDERS: Urology; Admitting Provider Family Medicine; Emergency Provider Emergency Medicine; PCP Physician Assistant; Visit Provider Family Medicine
DX: I48.91 Unspecified atrial fibrillation (principal); N13.30 Unspecified hydronephrosis; N17.9 Acute kidney failure, unspecified; Z16.21 Resistance to vancomycin; C67.9 Malignant neoplasm of bladder, unspecified; J43.9 Emphysema, unspecified; E78.5 Hyperlipidemia, unspecified; B95.2 Enterococcus as the cause of diseases classified elsewhere; Z79.82 Long term (current) use of aspirin; Z87.891 Personal history of nicotine dependence
CPT/HCPCS: 36415; 71046; 71275; 77386; 80048; 80053; 81001; 83735; 83880; 84484; 85025; 85027; 85610; 85730; 87040; 87086; 93005; 94002; 94640; 96361; 96374; 97162; 97165; 99212; 99285; A9270; G0463; J0282; J1163; J7030; J7120; Q9967

== ENCOUNTER 2025-04-09 14:59 | Inpatient (IN) | payer MEDICARE, MEDICAID, SELFPAY ==
[2025-04-06 14:51] VITALS: BMI 23.6
--- NOTE | 2025-04-06 15:07 | PC.NURSE ---
Report to the Outpatient Waiting Room, entrance under the green pavilion located off [facility], at time __10:45am on date _04/15/25 . Planned Procedure Time: _12:45pm .? Time changes happen often and if your time is changed the preop area will call you the afternoon before. - You and your visitor will be asked to self-screen and do not enter if you have any COVID symptoms. Please call surgeon if you need to reschedule. - A mask is optional within the hospital at this time. Patients may have clear liquids (water, carbonated beverages, clear teas, apple juice) until 3 hours prior to surgery with a maximum of 20 ounces. - No food from midnight until time of surgery and no smoking, or chewing tobacco (or any form of nicotine). No chewing gum, candy or mints. (0945am) Take only the following medications with a SIP of water on the morning of surgery: ____Metoprolol, Diltiazem, Albuteral, Symbicort,Tylenol & NTG if needed DO NOT STOP ANY OF YOUR OTHER PRESCRIPTION MEDICATIONS PRIOR TO SURGERY EXCEPT THE FOLLOWING Hold all vitamins and supplements for 3 days per anesthesiologist. Medications to discontinue per physician Baby aspirin to be taken daily in place of Full Strength Aspirin per Dr Foster as of today 04/06/25. Date to take last dose____NONE (pt wont take it am of surgery) Please no make-up, nail azeri, hairspray, perfume, deodorant, or body powder the day of surgery.? No jewelry (including any body piercings) or valuables the day of surgery, leave them at home.? Please take a shower or bath the night before, or the morning of, surgery with an antibacterial soap.? Wear comfortable, loose fitting clothing.? . - Jewelry must be removed prior to entering the operating room.? Rings and piercings that are not removed may be cut off. - The hospital will not accept responsibility for valuables.? - Please leave all valuables, including medications, at home the day of surgery. If you are going home after surgery, a licensed race car driver must drive you home.? - NO public transportation without another adult if you receive anesthesia. - We recommend that an adult stay with you for 24 hours following discharge. - We also recommend that you do not drive, make important decision, drink alcoholic beverages, or take any drugs that were not prescribed by your health care provider for at least 24 hours after your discharge time. Follow any additional instructions given to you from your surgeon. Telephone instructions given to ____Patient and asked if any additional questions and then verbalized understanding. Patient advised to call surgeon office or pre surgery nurse liaison [phone] if any additional questions.
[2025-04-09] VITALS (12 sets, daily range): BP systolic 89–113; BP diastolic 57–80; PULSE 70–100; RESP 15–24; TEMP 36.7; O2SAT 92–100; BMI 23.6
--- NOTE | ~2025-04-09 | XR_ITS ---
EXAMINATION: XR chest 1V portable DATE: 04/17/2025 09:37 INDICATION: Pleural effusion TECHNIQUE: frontal view of the chest was obtained. COMPARISON: Chest radiograph dated 04/16/2025 FINDINGS: Emphysema with increased lucency and architectural distortion is evident at the apices of lungs and prior CT. Again seen is a diffuse and basilar predominant increased indistinct initial pattern throughout both lungs. More dense opacities at the left lower lung zone consistent with small left pleural effusion and associated atelectasis and/or pneumonia. The cardiomediastinal silhouette is normal. Right internal jugular central venous port catheter with distal tip in the midsuperior vena cava. Old healed fracture of the right humeral neck with lateral plate and screw fixation. IMPRESSION: 1. No significant change in a small left pleural effusion with associated left basilar atelectasis and/or pneumonia. 2. Emphysema with persistent diffuse increased interstitial pattern which represent mild pulmonary edema and/or chronic interstitial lung disease. Reviewed, dictated and finalized at location A. IMPRESSION: 1. No significant change in a small left pleural effusion with associated left basilar atelectasis and/or pneumonia. 2. Emphysema with persistent diffuse increased interstitial pattern which repre sent mild pulmonary edema and/or chronic interstitial lung disease.
--- NOTE | ~2025-04-09 | US_ITS ---
EXAMINATION: US thoracentesis DATE: 04/15/2025 10:01 INDICATION: Large left pleural effusion with hypoxia TECHNIQUE: The procedure and its risks and benefits were discussed with the patient. Potential risks discussed included bleeding, infection, and pneumothorax. The patient understood the risks and agreed to proceed. The skin was prepped and draped in sterile fashion. 1% lidocaine was used for local anes thesia. Under ultrasound guidance, a 5 Fr catheter with trochar was advanced into the left pleural effusion. Fluid was aspirated. The catheter was removed, and a dressing was applied. There were no immediate complications. FINDINGS: Ultrasound images demonstrate a large left pleural effusion and the catheter within the fluid. Effusion is complex with the few subtle thin internal septations within the effusion. IMPRESSION: 1. Successful ultrasound-guided thoracentesis yielding 1000 mL of light reddish/cranberry colored fluid. Reviewed, dictated and finalized at location A. IMPRESSION: 1. Successful ultrasound-guided thoracentesis yielding 1000 mL of light reddis h/cranberry colored fluid.
--- NOTE | ~2025-04-09 | CT_ITS ---
EXAMINATION: CT abdomen pelvis w con DATE: 04/09/2025 19:07 INDICATION: Flank pain. Hematuria. Bladder cancer. TECHNIQUE: Computed tomography (CT) of the abdomen and pelvis was performed with 100 mL Omnipaque-350 intravenous contrast. Automated exposure control and iterative reconstruction technique were employed. The dose-length product was 312.33 mGy-cm. COMPARISON: PET/CT dated 02/25/[address] dated 12/10/2024 FINDINGS: Moderate-sized left and small right posterior layering pleural effusions. There is smooth septal line thickening and groundglass opacities superimposed over moderate paraseptal predominant emphysema in the lower lungs. Bronchial wall thickening which could be due to pulmonary edema or bronchitis. Several calcified lymph nodes at the right hilum and along the right major fissure consistent with old granulomatous disease. Heart size is normal but with left atrial enlargement. No pericardial effusion. Small hiatal hernia containing fat with stranding. Fat-containing eventration along the posterior medial aspect of the left and right leaves of the diaphragm. Liver, gallbladder, spleen, pancreas and bilateral adrenal glands are normal. Myers catheter in the decompressed bladder. Bilateral internal ureteral stents with distal loops formed in the decompressed bladder. The proximal loops are formed in the bilateral renal pelvises sees. There is mild right hydronephrosis with urothelial enhancement at the right renal pelvis which can be seen with ascending urinary tract infection. There are a few diverticula along the sigmoid colon without adjacent inflammatory stranding to suggest diverticular colitis. Small bowel and appendix are normal. There is calcified atherosclerosis of the aorta and bilateral iliac arteries. No free intraperitoneal gas or fluid. No pathologically enlarged abdominal or pelvic lymphadenopathy. Chronic superior endplate compression fractures at T11 and L2. IMPRESSION: 1. Moderate emphysema with bronchial wall thickening and superimposed smooth septal line thickening and groundglass opacities in the bilateral lower lungs most likely pulmonary edema although differential would include pneumonia. 2. Moderate-sized left and small right pleural effusions. 3. Mild right hydronephrosis with bilateral intraureteral stents in expected position and Myers catheter in the decompressed bladder. There is some urothelial enhancement at the right renal pelvis which raises concern for ascending urinary tract infection and would correlate with urinalysis. Reviewed, dictated and finalized at location A. IMPRESSION: 1. Moderate emphysema with bronchial wall thickening and superimposed smooth se ptal line thickening and groundglass opacities in the bilateral lower lungs mos t likely pulmonary edema although differential would include pneumonia. 2. Moderate-sized left and small right pleural effusions. 3. Mild right hydronephrosis with bilateral intraureteral stents in expected po sition and Myers catheter in the decompressed bladder. There is some urothelial enhancement at the right renal pelvis which raises concern for ascending urina ry tract infection and would correlate with urinalysis.
--- NOTE | ~2025-04-09 | XR_ITS ---
EXAMINATION: XR stent kub - surgery DATE: 04/15/2025 13:24 INDICATION: Bilateral stent exchange TECHNIQUE: Fluoroscopic images from a bilateral stent exchange are submitted for review. 27 seconds of fluoroscopy time. FINDINGS: There is bilateral double J internal ureteral stent projecting in expected position, with proximal [place] loop at the level of the renal pelvis and distal loop in the pelvis within the bladder lumen. IMPRESSION: 1. Bilateral internal ureteral stent exchange. Please refer to real-time procedural findings for details. Reviewed, dictated and finalized at location O. IMPRESSION: 1. Bilateral internal ureteral stent exchange. Please refer to real-time proc edural findings for details.
--- NOTE | ~2025-04-09 | XR_ITS ---
EXAMINATION: [id number] DATE: 04/15/2025 09:49 INDICATION: Status post left thoracentesis TECHNIQUE: frontal view of the chest was obtained. COMPARISON: Chest radiograph dated 03/25/[address] dated 04/14/2025 FINDINGS: Emphysema with moderate biapical pleural-parenchymal scarring. Again seen are diffuse increased interstitial opacities throughout both lungs with basilar predominance with a few peripheral Sree B-lines consistent with mild pulmonary edema. There is a residual small to moderate-sized left pleural effusion with associated atelectasis and/or pneumonia in the left lower lung zone. Mild discoid atelectasis in the lateral left midlung zone. No pneumothorax. Heart size within normal limits for AP technique. Right internal jugular central venous port catheter with distal tip at the midsuperior vena cava. Old right humeral fracture with partially visualized plate and screw fixation. IMPRESSION: 1. Emphysema with minimal diffuse mild pulmonary edema. 2. No pneumothorax post left thoracentesis with residual small to moderate-sized left pleural effusion and associated atelectasis and/or pneumonia in the left lower lung zone. Reviewed, dictated and finalized at location A. IMPRESSION: 1. Emphysema with minimal diffuse mild pulmonary edema. 2. No pneumothorax post left thoracentesis with residual small to moderate-size d left pleural effusion and associated atelectasis and/or pneumonia in the left lower lung zone.
--- NOTE | ~2025-04-09 | XR_ITS ---
EXAMINATION: XR chest 1V portable DATE: 04/16/2025 06:48 INDICATION: Shortness of breath TECHNIQUE: frontal view of the chest was obtained. COMPARISON: Chest radiograph dated 04/15/[address] dated 04/14/2025 FINDINGS: Right internal jugular central venous port catheter with distal tip at the midsuperior vena cava. Emphysema with increased lucency and architectural distortion is evident at the apices and better appreciated on prior CT. No significant change in diffuse increased interstitial opacities throughout both lungs. Interval decrease in opacities in the left lower lung zone consistent with decreasing small left pleural effusion and associated basilar atelectasis and/or pneumonia. No pneumothorax or right-sided pleural effusion. Heart size is normal. Healing proximal right humeral fracture with lateral plate and screw fixation. IMPRESSION: 1. Decreasing small left pleural effusion with improving atelectasis and/or pneumonia at the left lung base. 2. Emphysema with persistent diffuse increased interstitial pattern which could represent mild pulmonary edema and/or chronic interstitial lung disease. Reviewed, dictated and finalized at location A. IMPRESSION: 1. Decreasing small left pleural effusion with improving atelectasis and/or pne umonia at the left lung base. 2. Emphysema with persistent diffuse increased interstitial pattern which could represent mild pulmonary edema and/or chronic interstitial lung disease.
--- NOTE | ~2025-04-09 | CT_ITS ---
EXAMINATION: CTA chest PE protocol DATE: 04/14/2025 11:18 INDICATION: Atrial fibrillation. Assess for pulmonary embolism. TECHNIQUE: Computed tomography (CT) pulmonary angiogram of the chest was performed with 100 mL Omnipaque-350 intravenous contrast. Additional 3D reconstructions utilizing coronal maximum intensity projection (MIP) were performed. Automated exposure control and iterative reconstruction technique were employed. The dose-length product was 326.75 mGy-cm. COMPARISON: 03/25/2025 FINDINGS: No pulmonary embolism. Moderate emphysema. Mild biapical pleural-parenchymal scarring. Small right and left pleural effusions. There is partial collapse of the left lower lobe. Additional mild dependent atelectasis in the right lower and bilateral upper lobes. There is some superimposed smooth septal line thickening in both lungs most prominent at the lung bases where there are some peripheral Sree B-lines consistent with mild pulmonary edema. Heart size is normal. No pericardial effusion. Thoracic aorta is normal in caliber with no dissection. Right internal jugular central venous port catheter with distal tip at the midsuperior vena cava. Calcified right hilar lymph nodes consistent with old granulomatous disease. No pathologically enlarged thoracic lymphadenopathy. There is reflux of contrast into the inferior vena cava and right hepatic vein consistent with tricuspid regurgitation. Hepatic calcific lesions consistent with old granulomatous disease. Persistent mild right hydronephrosis. A right internal ureteral stent was positioned in the renal pelvis on recent CT the abdomen performed 4 days prior but which remains below the inferior margin of the current field of imaging. The proximal tip of the contralateral left internal ureteral stent is seen at the left renal pelvis. Chronic compression fractures at T8, T11 and L2. IMPRESSION: 1. No pulmonary embolism. 2. Small right and moderate to large left pleural effusions with likely secondary partial collapse of the left lower lobe. 3. Moderate emphysema superimposed mild pulmonary edema. 4. Likely tricuspid regurgitation with reflux of contrast into the inferior vena cava and right hepatic vein. 5. Unchanged mild right hydronephrosis. Reviewed, dictated and finalized at location A. IMPRESSION: 1. No pulmonary embolism. 2. Small right and moderate to large left pleural effusions with likely seconda ry partial collapse of the left lower lobe. 3. Moderate emphysema superimposed mild pulmonary edema. 4. Likely tricuspid regurgitation with reflux of contrast into the inferior jc a cava and right hepatic vein. 5. Unchanged mild right hydronephrosis.
--- OUTSIDE RECORDS SUMMARY | 2025-04-09 15:02 | XMS_ITS | Encounter Summary ---
Author Organization [facility] Address [address] [place] [address] Care Team Providers Care Mule Spinner Name Role Phone Mikel Shepard MD Unavailable [phone] Jazmin Abel MD Primary Care Provider [phone] David Felix MD Unavailable Raya Lozoya PA-C Primary Care Provider [phone] Encounter Details Date Type Department Care Team (Late st Contact Info) Description 07/19/2017 Abstract [facility] at [address] [address] Mallory Jackson MA Social History [...] on filedocumented in this encounter Care Teams Mule Spinner Relationship Specialty Start Date End Date Jazmin Abel MD [facility] [place] [address] PCP - General FAMILY PRACTICE 03/30/19 12/09/24 Raya Lozoya PAMarileeC [address] [place] [id number] PCP - General PHYSICIAN MUSIC TEACHER 12/10/24 Mikel Shepard MD Tappen Validation Leader CARDIOVASCULAR DISEASE 06/18/17 04/01/18 David Felix MD [facility]. [facility] [address] [place] [address] Tappen Validation Leader INTERVENTIONAL CARDIOLOGY 06/17/19 documented as of this encounter
--- OUTSIDE RECORDS SUMMARY | 2025-04-09 15:02 | XMS_ITS | Encounter Summary ---
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
--- OUTSIDE RECORDS SUMMARY | 2025-04-09 15:02 | XMS_ITS | Clinical Summary ---
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 Gender Identity Not on file Sexual Orientation Not on file Occupation Industry Job Start Date Job End Date disabled Not on file Not on file Not on file Obstetrics History Last Filed Vital Signs Vital Sign Reading Time Taken Comments Blood Pressure 117/66 09/07/2024 1:50 PM WELDING MACHINE OPERATOR ARC Pulse 54 09/07/2024 1:50 PM WELDING MACHINE OPERATOR ARC Temperature 36.5 C (97.7 F) 04/04/2016 3:05 PM CDT Respiratory Rate 18 09/07/2024 1:50 PM WELDING MACHINE OPERATOR ARC Oxygen Saturation 98% 09/07/2024 1:50 PM WELDING MACHINE OPERATOR ARC Inhaled Oxygen Concentration - - Weight 92.1 kg (203 lb) 09/07/2024 1:50 PM WELDING MACHINE OPERATOR ARC Height 185.4 cm (6' 1) 09/07/2024 1:50 PM WELDING MACHINE OPERATOR ARC Body Mass Index 26.78 09/07/2024 1:50 PM WELDING MACHINE OPERATOR ARC Plan of Treatment Health Maintenance Due Date [...] signed by Alessio RICHARD T: Report ID: [id number] Reading Location: [place] [address] Procedure Note Alessio Vernon MD - 11/13/2024 [...] signed by Alessio RICHARD T: Report ID: [id number] Reading Location: [place] [address] Stacia Anthony MD IM CT PROCEDURES Final Resul t from Last 3 Months or Most Recently Relevant to Health Maintenance Insurance [facility] MEDICARE ADVANTAGE Care Teams Patient Services Rep Relationship Specialty Start Date End Date Raya Lozoya PA [facility] [place] [address] PCP - General Physician Dewer 01/09/22
--- OUTSIDE RECORDS SUMMARY | 2025-04-09 15:02 | XMS_ITS | Clinical Summary ---
Author Organization [facility] Address [address] [place] [address] Care Team Providers Care Guest Specialist Name Role Phone David Felix MD Unavailable Raya Lozoya PA-C Primary Care Provider [phone] Allergies No known active allergies Medications INCRUSE ELLIPTA 62.5 MCG/INH AEROSOL POWDER, BREATH ACTIVATEDIndica tions:Pulmonary emphysema (CMS/HCC HHS/HCC) INHALE 1 PUFF BY MOUTH ONCE DAILY 30 each 6 09/04/2018 Active albuterol sulfate HFA (VENTOLIN HFA) 108 (90 Base) MCG/ACT inhalerIndicati ons:Pulmonary emphysema ([facility]/HCC HHS/HCC) Inhale 2 puffs into the lungs every 6 (six) hours as needed for Wheezing. 1 Inhaler 12/08/2018 Active aspirin 81 MG tablet Take 1 tablet (81 mg total) by mouth daily. 11/08/2014 Active vitamin D2, ergocalciferol, 01213 UNITS capsule Take 1 capsule (50,000 Units [...] AEROSOL POWDER, BREATH ACTIVATEDIndica tions:Centrilob ular emphysema ([facility]) Inhale 1 puff into the lungs 2 (two) times a day. 1 each 6 07/02/2019 Active Active Problems Problem Noted Date Diagnosed Date Cigarette nicotine dependence in remission 03/30 KELLI (obstructive sleep apnea) 10/25/2017 Pulmonary nodule 10/25/2017 Pulmonary emphysema ([facility]) 10/25/2017 Environmental and seasonal allergies 07/25/2017 Excessive daytime sleepiness 07/25/2017 GERD (gastroesophageal reflux disease) 7 SOB (shortness of breath) on exertion 07/25/2017 Paraseptal emphysema ([facility]) 7 Aortic atherosclerosis 07/19/2017 Precordial pain 07/19/2017 Syncope 07/19/2017 Former smoker 06/21/2017 Centrilobular emphysema ([facility]) 2016 Heart murmur 06/21/2017 Marijuana [...] this topic Medical Devices Implanted Type Area Tire Mechanic Device Identifier Shelf Expiration Date Model / Serial / Lot Ureteral Stent-12/11/19 25 Implanted:Qt y: 1 on 12/10/2024 by Damian Duarte MD Stent Left: Ureter [employer] RUPA 12/09/2026 [id number] / / [id number] Procedures Procedure Name Priority Date/Time Associated Diagnosis Comments CT LUNG SCREENING Routine 12/22/2021 12: 26 PM CDT Nicotine dependence, cigarettes, in remission LIPID PANEL Routine 08/07/2017 9:50 AM HABILITATION TRAINING SPECIALIST Chest pain SOB (shortness of breath) CT CHEST WO CON Routine 07/02/2017 10:10 AM HABILITATION TRAINING SPECIALIST Abnormal chest x-ray HEPATITIS A,B,& C Routine 10/08/2014 12: 10 PM HABILITATION TRAINING SPECIALIST from Last 3 Months or Most Recently [...] around 12/22/2022). Thank you for choosing the [facility]'s Lung Screening Program. Referred By: RAYA [...] or around12/22/2022). Thank you for choosing the [facility]'s Lung ScreeningProgram. Referred By: RAYA LOZOYA Interpreted By: Monty You MD, 12/28/2021 7:30 PM us Raya Lozoya PA-C CT Final Resu lt * (ABNORMAL) LIPID PANEL (08/07/2017 9:50 AM HABILITATION TRAINING SPECIALIST) CHOLESTEROL 185 <200 MG/DL 08/07/2017 11:00 AM HABILITATION TRAINING SPECIALIST [facility] TRIGLYCERIDES 66 <150 MG/DL 08/07/2017 11:00 AM [facility] HDL 47 >40.0 MG/DL 08/07/2017 11:00 AM [facility] LDL (CALCULATED) 124.8(H) <100 MG/L 08/07/20 17 11:00 AM [facility] NON HDL CHOLESTEROL 138(H) <130 MG/DL 08/07/2017 11:00 AM [facility] CHOL/HDL RATIO 3.9 0.0 - 4.5 08/07/2017 11:00 AM [facility] VLDL CALCULATION 13 5 - 55 MG/DL 08/07/2017 11:00 AM [facility] LIPID INTERPRETATION 08/07/2017 11:00 AM [facility] Comment: [facility] CONCENSUS REPORT RECOMMENDATIONS: ADULT CHILD LOW RISK: CHOLESTEROL <200 <170 TRIGLYCERIDE <150 --- HDL >=60 --- LDL <100 <110 BORDERLINE: CHOLESTEROL 200-239 170-199 TRIGLYCERIDE 150-199 --- HDL 40-59 --- LDL 100-159 110-129 HIGH RISK: CHOLESTEROL >=240 >=200 TRIGLYCERIDE >=200 --- HDL <40 --- LDL >=160 >=130 08/07/2017 9:50 AM HABILITATION TRAINING SPECIALIST Mikel Shepard MD LABORATORY Final Result [facility] [address] [place] [address], * CT CHEST WO CON (07/02/2017 10:10 AM HABILITATION TRAINING SPECIALIST) Anatomical Region Laterality Modality Chest Computed Tomogra phy 07/02/2017 10:2 1 AM HABILITATION TRAINING SPECIALIST Impressions 07/02/2017 10:46 AM HABILITATION TRAINING SPECIALIST =====IMPRESSION:===== 1. Nodularity of the pleura particularly [...] of bowel involvement. Narrative 07/02/2017 10:46 AM HABILITATION TRAINING SPECIALIST EXAMINATION: CT Chest without contrast EXAM DATE/TIME: [...] * HEPATITIS A,B,& C (10/08/2014 12:10 PM HABILITATION TRAINING SPECIALIST) HAV IGM NON-REACTI VE NR [facility] TO EPIC CONVERSION HEPATITIS B SURFACE AG NON-REACTI VE NR [facility] TO EPIC CONVERSION HEP B SURFACE AB NON-REACTI VE [facility] TO EPIC CONVERSION HEP B CORE TOTAL AB NON-REACTI VE NR [facility] TO EPIC CONVERSION HEPATITIS C AB NON-REACTI VE NR [facility] TO EPIC CONVERSION Comment: Result Comment: TESTING PERFORMED AT [facility], A MEMBER OF THE [facility]. 10/08/2014 12:1 0 PM HABILITATION TRAINING SPECIALIST 10/08/2014 12:10 PM HABILITATION TRAINING SPECIALIST Narrative [facility] TO EPIC CONVERSION - 10/11/2014 5:34 PM HABILITATION TRAINING SPECIALIST 13Oct2014 7:23AM by Donovan Saba: Mr Tammie, [...] Most Recently Relevant to Health Maintenance Insurance [facility] Care Teams Guest Specialist Relationship Specialty Start Date End Date Raya Lozoya PAMarileeC [address] [place] [address] PCP - General PHYSICIAN JAZZ MUSICIAN 12/10/24 David Felix MD [facility] [address] [place], [place] [id number] Mena Munitions Worker INTERVENTIONAL CARDIOLOGY 06/17/19
--- OUTSIDE RECORDS SUMMARY | 2025-04-09 15:02 | XMS_ITS | Clinical Summary ---
Author Organization [facility] [employer] Address [address] [place] [address] Care Team Providers Care Material Control Specialist Name Role Phone Jazmin Abel MD Primary Care Provider [phone] Source Comments [employer],non-owned Affiliates and Associated Physician Practices is amultiple site organization consisting of ambulatory clinics and hospital sitesin [place], [place], [place] and [place]. This disclosure is being madepursuant to the Care Everywhere program and may not contain all information available regarding this patient. Last updated 18.[employer] Allergies No known active allergies Medications * [...] on file Legal Sex Male 2:43 PM BIT TAPPER Gender Identity Not on file Sexual Orientation [...] Interventions: Insurance MEDICARE MEDICARE [facility] MANAGED MEDICARE ADV SELF PAY NO INSURANCE Member Subscriber Plan / Payer (Ef fective for All Dates) Name:Walter Henley Member ID:Not on file Relation to Subscriber:Not on file Name:WALTER HENLEY Subscriber ID:Not on file (Home) Address: [address] [place] [address] Payer ID:Not on file Group ID:Not on file Type:Self Pay Address: [facility] MANAGED MEDICARE ADV MEDICARE Care Teams Material Control Specialist Relationship Specialty Start Date End Date Jazmin Abel MD [address] [place] [address] PCP - General 05/14/19
--- OUTSIDE RECORDS SUMMARY | 2025-04-09 15:02 | XMS_ITS | Encounter Summary ---
Author Organization [facility] ANITRA Potter [facility] Address [address] [place] [address] Care Team Providers Care Secondary School Registrar Name Role Phone Unavailable Primary Care Provider Unavailabl e Encounter Details Date Type Department Care Team ([facility] Contact Info) Description 04/06/2025 Orders Only [facility] Oncology and Hematology [facility] [address] [place] [address] Dyllan Friedman MD [address] [place] [address] Social History Tobacco Use Types Packs/Day [...] Upcoming Encounters Date Type Department Care Team ([facility] Contact Info) Description 05/03/2025 9:15 AM CDT Office Visit [facility] Oncology and Hematology - [place] [address] [place] [address] Dyllan Friedman MD [address] [place] [address] documented as of this encounter Procedures Procedure Name Priority Date/Time Associated Diagnosis Comments COMPREHENSIVE METABOLIC PANEL Routine 04/05/2025 10:36 AM CDT BASIC METABOLIC PANEL Routine 04/05/2025 10:29 AM CDT CBC WITH AUTODIFFERENTIAL Routine 2024 10:25 AM CDT documented in this encounter Results * COMPREHENSIVE METABOLIC PANEL (04/05/2025 10:36 AM CDT) Blood us Dyllan Friedman MD CHEMISTRY ORDERABLES Final Resu lt * BASIC METABOLIC PANEL (04/05/2025 10:29 AM CDT) Blood us Dyllan Friedman MD CHEMISTRY ORDERABLES Final Resu lt * CBC WITH AUTODIFFERENTIAL (04/05/2025 10:25 AM CDT) Blood us Dyllan Friedman MD HEMATOLOGY ORDERABLES Final Res ult documented in this encounter Visit Diagnoses Not on filedocumented in this encounter
--- OUTSIDE RECORDS SUMMARY | 2025-04-09 15:02 | XMS_ITS | Encounter Summary ---
Author Organization [facility] Facility Care Team Providers Care Gristmiller Name Role Phone Jazmin Abel MD Primary Care Provider [phone] Raya Lozoya Primary Care Provider [phone] Encounter Details Date Type Department Care Team (Latest Contact Info) Description 07/28/2017 Orders Only [facility] CLINCONV ProviderCameron MD [address] [place] [address] Social History Tobacco Use Types Packs/Day Years Used Date Smoking Tobacco: Never Assessed Sex and Gender Information Value Date Recorded Sex Assigned at Not on file Legal Sex Male 9:52 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 Historical Provider [facility] PHIL RIZVI Final Result documented in this encounter Visit Diagnoses Not on filedocumented in this encounter Care Teams Gristmiller Relationship Specialty Start Date End Date Jazmin Abel MD PCP - General Family Medicine 06/12/18 01/08/22 Raya Lozoya PA [facility] [place] [address] PCP - General Physician Bullet Assembly Press Setter Operator 01/09/22 documented as of this encounter
--- OUTSIDE RECORDS SUMMARY | 2025-04-09 15:02 | XMS_ITS | Encounter Summary ---
Author Organization [facility] Facility Care Team Providers Care Filtration Operator Name Role Phone Jazmin Abel MD Primary Care Provider [phone] Raya Lozoya Primary Care Provider [phone] Encounter Details Date Type Department Care Team (Latest Contact Info) Description 06/26/2018 Orders Only [facility] CLINCONV ProviderCameron MD [address] [place] [address] Social History Tobacco Use Types Packs/Day Years Used Date Smoking Tobacco: Never Assessed Sex and Gender Information Value Date Recorded Sex Assigned at Not on file Legal Sex Male 9:52 AM PROGRAM DIRECTOR/MORNING SHOW HOST Gender Identity Not on file Sexual Orientation Not on file documented as of this encounter Plan of Treatment Not on file documented as of this encounter Procedures Procedure Name Priority Date/Time Associated Diagnosis Comments CARDIOLOGY REPORT 07/08/2018 12: 00 AM PROGRAM DIRECTOR/MORNING SHOW HOST documented in this encounter Results * CARDIOLOGY REPORT (07/08/2018 12:00 AM PROGRAM DIRECTOR/MORNING SHOW HOST) Anatomical Region Laterality Modality Other Narrative 07/08/2018 12:00 AM PROGRAM DIRECTOR/MORNING SHOW HOST Ordered by an unspecified provider. Historical Provider [facility] PHIL RIZVI Final Result documented in this encounter Visit Diagnoses Not on filedocumented in this encounter Care Teams Filtration Operator Relationship Specialty Start Date End Date Jazmin Abel MD PCP - General Family Medicine 06/12/18 01/08/22 Raya Lozoya PA [facility] [place] [address] PCP - General Physician Consumer Electronics Merchandiser 01/09/22 documented as of this encounter
--- OUTSIDE RECORDS SUMMARY | 2025-04-09 15:02 | XMS_ITS | Clinical Summary ---
Author Organization [facility] Laila sharma Jw Address [address] [place] [address] Care Team Providers Care Internal Grinder Name Role Phone Unavailable Primary Care Provider [...] Encounters Date Type Department Care Team Description 04/06/2025 Orders Only [facility] On[facility] and Hematology - [id number] Dyllan Friedman MD 04/05/2025 10:15 AM CDT Office Visit [facility] - [place] [address] [place] [id number] Dyllan Friedman MD Malignant neoplasm of urinary bladder, unspecified site (CMS/HCC) (Primary Dx) 03/23/2025 Orders Only [facility] Hematology - [place] [address] [place] [id number] Dyllan Friedman MD 03/22/2025 10:15 AM CDT Office Visit [facility] Hematology - [place] [address] [place] [id number] Dyllan Friedman MD Malignant neoplasm of urinary bladder, unspecified site (CMS/HCC) (Primary Dx) 03/15/2025 Orders Only [facility] Hematology - [place] [address] [place] [id number] Dyllan Friedman MD Malignant neoplasm of urinary bladder, unspecified site (CMS/HCC) 03/05/2025 Abstract [facility]ematology - [place] [address] [place] [address] Dyllan Friedman MD 03/04/2025 Orders Only [facility]ematology - [place] [address] [place] [address] Dyllan Friedman MD 03/02/2025 8:45 AM CDT Office Visit [facility]ematology - [place] [address] [place] [address] Dyllan Friedman MD Malignant neoplasm of urinary bladder, unspecified site (CMS/HCC) (Primary Dx) 03/02/2025 External Device Data STL ABSTRACTION Provider, Abstract 03/01/2025 Orders Only [facility] [address] [place] [address] Dyllan Friedman MD Malignant neoplasm of urinary bladder, unspecified site (CMS/HCC) (Primary Dx) 02/23/2025 Orders Only [facility] On[facility] Hematology - [place] [address] [place] [phone] Dyllan Friedman MD Malignant neoplasm of urinary bladder, unspecified site (CMS/HCC) (Primary Dx) 02/22/2025 Refill [facility] H[facility] [address] [place] [phone] Dyllan Friedman MD Malignant neoplasm of urinary bladder, unspecified site (CMS/HCC) (Primary Dx) 02/02/2025 External Device Data STL ABSTRACTION Provider, Abstract from Last 3 Months Family History Medical [...] Sign Reading Time Taken Comments Blood Pressure 124/81 04/05/2025 10:04 AM CDT Pulse 63 04/05/2025 10:04 AM CDT Temperature 36.2 C (97.1 F) 04/05/2025 10:04 AM CDT Respiratory Rate 16 04/05/2025 10:04 AM CDT Oxygen Saturation 92% 04/05/2025 10:04 AM CDT Inhaled Oxygen Concentration - - Weight 81.9 kg (180 lb 9.6 oz) 04/05/2025 10:04 AM CDT Height 185.4 cm (6' 1) 03/22/2025 9:57 AM CDT Body Mass Index 23.83 03/22/2025 9:57 AM CDT Plan of Treatment Upcoming Encounters Date Type Department Care Team (Late st Contact Info) Description 05/03/2025 9:15 AM CDT Office Visit [facility] H[facility] [address] [facility] [address] [place] [address] Dyllan Friedman MD [address] [facility] [address] [place] [address] Health Maintenance Due Date Last [...] years 1-dose series) 2017 COVID-19 Vaccine ( season) 2024, 06/14/2021 INFLUENZA VACCINE (#1) 2025 , 05/07/2018, 04/12/2016 Procedures Procedure Name Priority Date/Time Associated Diagnosis Comments COMPREHENSIVE METABOLIC PANEL Routine 04/05/2025 10:36 AM CDT BASIC METABOLIC PANEL Routine 04/05/2025 10:29 AM CDT CBC WITH AUTODIFFERENTIAL Routine 2024 10:25 AM CDT BASIC METABOLIC PANEL Routine 03/22/2025 12:16 PM CDT COMPREHENSIVE METABOLIC PANEL Routine 03/22/2025 11:37 AM CDT BASIC METABOLIC PANEL Routine 03/01/2025 1:48 PM CDT COMPREHENSIVE METABOLIC PANEL Routine 03/01/2025 1:43 PM CDT from Last 3 Months Results * COMPREHENSIVE METABOLIC PANEL (04/05/2025 10:36 AM CDT) Only the most recent of3 resultswithin the time period is included. Blood us Dyllan Friedman MD CHEMISTRY ORDERABLES Final Resu lt * BASIC METABOLIC PANEL (04/05/2025 10:29 AM CDT) Only the most recent of3 resultswithin the time period is included. Blood us Dyllan Friedman MD CHEMISTRY ORDERABLES Final Resu lt * CBC WITH AUTODIFFERENTIAL (04/05/2025 10:25 AM CDT) Blood us Dyllan Friedman MD HEMATOLOGY ORDERABLES Final Res ult from Last 3 Months Insurance [facility] [id number]
--- NOTE | 2025-04-09 17:17 | ED.RECABL ---
HPI - Recheck/Abnormal Lab/Rx General Chief Complaint: Recheck/Abnormal Lab/Rx Stated Complaint: low BP Time Seen by Provider: 04/09/25 17:04 Source: patient Mode of arrival: ambulatory Limitations: no limitations History of Present Illness HPI narrative: This is a 69 year old male that presents to the ER for low blood pressure reading. Reports he is currently receiving chemo and radiation for bladder cancer. Reports today when he went to the cancer center his blood pressure was low so they sent him to the ER. Reports he has had bladder pain, flank pain, hematuria for the last week. Reports some nausea and vomiting. Denies fevers or diarrhea. Related Data Home Medications ?Medication ?Instructions ?Recorded ?Confirmed ?Last Taken ?Type nitroglycerin 0.4 mg sublingual 0.4 mg sublingual Q5M PRN Chest 02/09/21 04/09/25 Unknown History tablet Pain vitamin B12 0.5 mg-folic acid 1 mg 1 tablet PO DAILY 02/09/21 04/09/25 04/09/25 09:00 History tablet 1 tablet aspirin 325 mg tablet,delayed 325 mg PO DAILY 12/20/21 04/09/25 04/09/25 09:00 History release 325 mg atorvastatin 40 mg tablet 40 mg PO DAILY 12/27/21 04/09/25 04/08/25 17:00 History 40 mg tamsulosin 0.4 mg capsule 0.8 mg PO QAM 02/18/23 04/09/25 04/09/25 09:00 History 0.8 mg albuterol sulfate 90 mcg/actuation 2 puff inhalation Q6H PRN 12/02/24 04/09/25 01/18/25 History aerosol inhaler shortness of breath or wheezing budesonide-formoterol HFA 160 2 puff inhalation DAILY 12/02/24 04/09/25 03/25/25 09:00 History mcg-4.5 mcg/actuation aerosol inhaler (Symbicort) cholecalciferol (vitamin D3) 50 50 mcg PO DAILY 03/15/25 04/09/25 04/09/25 09:00 History mcg (2,000 unit) capsule 50 mcg acetaminophen 500 mg capsule 1,000 mg PO Q6H PRN pain 04/09/25 04/09/25 04/09/25 09:00 History 1,000 mg lidocaine-prilocaine 2.5 %-2.5 % 04/09/25 Unknown History topical cream Allergies Allergy/AdvReac Type Severity Reaction Status Date / Time No Known Allergies Allergy Verified 04/09/25 23:07 Review of Systems Review of Systems: All systems reviewed & are unremarkable except as noted in HPI and below PMFSH Past Medical History Medical History Emphysema lung Acute arthritis Rheumatoid osteoperiostitis Afib Surgical History Surgical History History of surgery on arm History of shoulder surgery Family History Family History Sibling Heart disease Skin cancer Social History Social History Smoking packs per day: 1.5 Smoking cigarettes per day: 30.0 Years smoked: 45 Smoking pack-years: 67.50 Smoking status: Former smoker Tobacco type: cigarettes Second hand tobacco smoke exposure: No Smoking end date: 08/12/16 Alcohol intake: never Drinks per week: 4 Alcohol use details: QUIT 2021 4-5 BEERS DAILY Substance use: current Substance use type: marijuana Other substance usage details: Smoke it 2-3 times a week Last use: 11/30/24 Do You Feel Safe in your Home?: Yes Lack of Transportation: No Lack of Food: Never True Current Housing: I Have Housing Concerned About Future Housing: No Difficulty Paying Gas/Electric Bills: No Difficulty Paying for Meds: No Currently Unemployed: No Education: High School Diploma/GED Difficulty w/ Childcare or Family Care: No Living arrangements: alone Gender identity (if verbalized by the patient): Male Spiritual care concerns: No Exam Narrative: GENERAL: Chronically ill-appearing, well-nourished, and in no acute distress. HEAD: Normocephalic, atraumatic. EYES: EOMI. ENT: Nares clear, no rhinorrhea or epistaxis. Mucous membranes moist. Oropharynx without tonsillar hypertrophy exudate or other lesions. CHEST: Clear to auscultation. No respiratory distress. No wheezes rales or rhonchi HEART: Regular rate and rhythm. No murmur heard. Normal peripheral pulses. ABDOMEN: Soft, nontender, nondistended, normal active bowel sounds. EXTREMITIES: Normal range of motion. No edema. SKIN: Warm, dry, no rash. NEURO: No focal deficits. Alert and oriented x3. PSYCH: Normal mood and affect Course Course Emergency Course: Patient and family updated on workup and need for admission Consultations Consultation #1: Patient and family updated on workup and need for admission. Date: 04/09/25 Consultation #2: Spoke with hospitalist about patient and workup accepts admission Date: 04/09/25 Vital Signs Vital signs: Vital Signs Pulse Rate 72 04/09/25 15:00 Respiratory Rate 17 04/09/25 15:00 Blood Pressure 109/71 04/09/25 15:00 Pulse Oximetry 95 04/09/25 15:00 Temperature 98.0 F 04/09/25 23:12 Pulse Rate 122 H 04/10/25 00:36 Respiratory Rate 16 04/09/25 23:12 Blood Pressure 105/71 04/09/25 23:12 Pulse Oximetry 92 04/09/25 23:12 Oxygen Delivery Room Air 04/09/25 15:14 MDM - Recheck/Abnormal Lab/Rx MDM Narrative Medical decision making narrative: Patient presents the emergency department for low blood pressures, reporting bladder discomfort, flank pain. History of bladder cancer. Currently receiving chemotherapy and radiation. He is afebrile and nontoxic appearing. His vitals are stable. Cbc without leukocytosis. Metabolic panel with kidney function appears to be around his baseline. Urine with evidence of infection. This was sent for culture. Patient given 1st dose of antibiotics IV in the ER. CT abdomen and pelvis shows moderate emphysema. Moderate left and small right pleural effusions. Mild right hydronephrosis with bilateral intraureteral stents. There is urothelial enhancement of the right renal pelvis which raises concern for ascending urinary tract infection. Patient and family updated on workup and need for admission. Spoke with hospitalist about patient and workup accepts admission Differential Diagnosis Differential diagnosis: Likely other (Cystitis, pyelonephritis) Lab Data Attestation: I reviewed the patient's lab results. 04/09/25 17:46 04/09/25 17:46 Labs: Lab Results 04/09/25 Range/Units 17:46 WBC 6.3 (4.5-10.0) K/mm3 RBC 2.92 L (4.6-6.20) M/mm3 Hgb 9.9 L (14.0-18.0) g/dL Hct 30.1 L (42.0-52.0) % MCV 103.1 H (80-100) fl MCH 33.9 (26-34) pg MCHC 32.9 (32-36) g/dl RDW 15.1 H (11.5-14.5) % Plt Count 197 (150-375) k/mm3 MPV 10.2 (7.4-10.4) fl Immature Gran % (Auto) 1.0 H (0-0.5) % Neut % (Auto) 79.0 H (45.5-73.1) % Lymph % (Auto) 6.5 L (18.3-44.2) % [place] % (Auto) 11.1 H (2.6-8.5) % Eos % (Auto) 2.1 (0-4.4) % Baso % (Auto) 0.3 (0.2-1.2) % Lymph # (Auto) 0.41 L (0.9-3.2) K/mm3 [place] # (Auto) 0.7 H (0.1-0.6) K/mm3 Eos # (Auto) 0.1 (0-0.3) K/mm3 Baso # (Auto) 0.0 (0.0-0.1) K/mm3 Abs Immat Gran (auto) 0.06 H (0.00-0.031) K/mm3 Absolute Neuts (auto) 5.0 (1.3-6.7) K/mm3 Absolute Nucleated RBC 0.000 (0.0-0.012) K/mm3 Nucleated RBC % 0.0 (0.0-0.2) % Sodium 133 L (137-145) mmol/L Potassium 3.9 (3.4-5.0) mmol/L Chloride 107 (98-107) mmol/L Carbon Dioxide 20 L (22-30) mmol/L Anion Gap 6 (4-12) mmol/L BUN 26 H (9-20) mg/dL Creatinine 1.41 H (0.7-1.3) mg/dL Estim Creat Clear Calc Not Reportable Estimated GFR 50 L (59 - ) Glucose 108 (65-110) mg/dL Calcium 8.1 L (8.4-10.2) mg/dL Total Bilirubin 0.7 (0.2-1.3) mg/dL AST 29 (17-59) U/L ALT 24 (6-50) U/L Alkaline Phosphatase 76 (38-126) U/L Total Protein 6.4 (6.3-8.2) g/dL Albumin 2.6 L (3.5-5.1) g/dL Lipase 29 (23-300) U/L Urine Color Red H (Yellow) Urine Appearance Other (Clear) Urine pH 6.0 (5.0-9.0) Ur Specific [place] 1.030 (1.001-1.035) Urine Protein 3+ H (Negative) mg/dL Urine Glucose (UA) Negative (Negative) mg/dL Urine Ketones Trace H (Negative) mg/dL Ur Blood (Man) 3+ H (Negative) Urine Nitrate Negative (Negative) Urine Bilirubin 1+ H (Negative) Urine Urobilinogen 0.2 (<2.0) mg/dL Leukocyte Esterase Rfl 1+ H (Negative) MANUEL/UL Urine RBC >100 H (0-2) /hpf Urine WBC 21-30 H (0-3) /hpf Imaging Data Radiologist's impression: ITS Impressions Abdomen/Pelvis CT 04/09/25 19:36 IMPRESSION: 1. Moderate emphysema with bronchial wall thickening and superimposed smooth septal line thickening and groundglass opacities in the bilateral lower lungs most likely pulmonary edema although differential would include pneumonia. 2. Moderate-sized left and small right pleural effusions. 3. Mild right hydronephrosis with bilateral intraureteral stents in expected position and Myers catheter in the decompressed bladder. There is some urothelial enhancement at the right renal pelvis which raises concern for ascending urinary tract infection and would correlate with urinalysis. Critical Care Time Critical Care Time Critical Care Time: No Discharge Plan Discharge Clinical Impression: Pyelonephritis Patient Disposition: Still a Patient Condition: Stable
[2025-04-09] MEDS: SODIUM CHLORIDE 0.9% IV 1,000 ML 999 ML IV CONT (17:46)
[2025-04-09 18:01] LABS: Hematocrit 30.1 % (42.0-52.0); Hemoglobin 9.9 g/dL (14.0-18.0); Immature Granulocyte Percent A 1.0 % (0-0.5); Lymphocytes Absolute Auto 0.41 K/mm3 (0.9-3.2); Mean Corpuscular HGB Conc 32.9 g/dl (32-36); Mean Corpuscular Hemoglobin 33.9 pg (26-34); Mean Corpuscular Volume 103.1 fl (80-100); Nucleated Red Blood Cells Absolute Auto 0.000 K/mm3 (0.0-0.012); Nucleated Red Blood Cells Perc 0.0 % (0.0-0.2); Platelet Count Result 197 k/mm3 (150-375); Red Blood Count 2.92 M/mm3 (4.6-6.20); White Blood Count 6.3 K/mm3 (4.5-10.0)
[2025-04-09 18:06] LABS: Add Urine Microscopic? YES; Appearance Urine Other (Clear); Glucose Urine UA Negative (Negative); Specific Grav Ur 1.030 (1.001-1.035)
[2025-04-09 18:07] LABS: Leukocyte Esterase Ur 1+ LEU/UL (Negative); Nitrate Urine Negative (Negative)
[2025-04-09 18:10] LABS: Alanine Aminotransferase 24 U/L (6-50); Albumin Level 2.6 g/dL (3.5-5.1); Alkaline Phosphatase 76 U/L (38-126); Anion Gap 6 mmol/L (4-12); Aspartate Amino Transferase 29 U/L (17-59); Bilirubin,Total 0.7 mg/dL (0.2-1.3); Blood Urea Nitrogen 26 mg/dL (9-20); Calcium 8.1 mg/dL (8.4-10.2); Carbon Dioxide 20 mmol/L (22-30); Chloride 107 mmol/L (98-107); Estimated Glomerular Filt Rate 50; Glucose 108 mg/dL (65-110); Lipase 29 U/L (23-300); Potassium 3.9 mmol/L (3.4-5.0); Sodium 133 mmol/L (137-145); Total Protein 6.4 g/dL (6.3-8.2)
[2025-04-09] MEDS: cefTRIAXone 1 GM in SODIUM CHLORIDE 0.9% IV 50 ML 100 ML IVPB (19:18)
--- NOTE | 2025-04-09 20:16 | ECG_ITS ---
Test Date: 2025-04-09 20:21:42 Measurements Intervals [place] Rate: 98 P: 0 UT: 0 QRS: -11 QRSD: 81 T: 23 QT: 342 QTc: 437 Interpretive Statements ATRIAL FIBRILLATION LOW QRS VOLTAGE IN LIMB LEADS BORDERLINE ST-T WAVE ABNORMALITY- ANTEROLAT/INF LEADS BASELINE WANDER- V1-V3 ABNORMAL ECG Compared to ECG 03/27/2025 07:57:19 HEART RATE HAS DECREASED Electronically Signed On 04-10-2025 08:17:31 CDT by Jorge Alberto Carlson D.O.
[2025-04-09] MEDS: LINEZOLID 600 MG TABLET PO (20:45)
[2025-04-09] MEDS: MIDODRINE HCL 10 MG TABLET PO (20:45)
--- NOTE | 2025-04-09 23:03 | ADMGEN ---
This patient, Stanislav Cho, was admitted to Medical Room 241-. Patient/family oriented to hospital policies and general routines including ID bracelet, bed and alarms, visiting hours, pain management, procedures, bathroom and other care routines, personal items, smoking policy, room service/diet, and visiting hours. Information on how to activate the Rapid Response Team has been discussed. Patient/Family are encouraged to report perceived risks to care and to ask questions if they do not understand what they are told or what they should do.
[2025-04-10] VITALS (17 sets, daily range): BP systolic 79–98; BP diastolic 55–60; PULSE 77–122; RESP 14–20; TEMP 36.4–36.8; O2SAT 91–95; BMI 23.6
[2025-04-10] MEDS: METOPROLOL SUCCINATE EXT REL 50 MG TABCR PO ×2 (00:36→10:23)
[2025-04-10] MEDS: DIGOXIN TAB 125 MCG TABLET PO ×3 (00:36→17:25)
[2025-04-10] MEDS: SODIUM CHLORIDE 0.9% IV 1,000 ML 100 ML IV CONT (00:40)
[2025-04-10] MEDS: ACETAMINOPHEN 500 MG TABLET 1000 MG PO ×2 (01:44→10:24)
--- NOTE | 2025-04-10 02:11 | PM.IMHP ---
H&P: HPI History of Present Illness Date/Time: 04/10/25 02:11 Chief Complaint: Low blood pressure Narrative: 69-year-old unfortunate male with a past medical history of emphysema, rheumatoid arthritis, relatively recent diagnosis within the year of atrial fibrillation, chronic kidney disease stage 3, BPH, and recent diagnosis stage II high-grade invasive urothelial carcinoma status post TURBT 12/2024 who presented to the ER from [facility] due to low blood pressures. The patient reports that he was went to the [facility] to receive his chemotherapy. According to the Oncology notes it looks like the patient is receiving adjunctive chemotherapy with cisplatin and Gemzar. He is also receiving radiation therapy. He reports that he has been having some lightheadedness with position changes. He denies any recent syncope or falls. He denies any fevers but has been feeling chilled. He denies any diarrhea or changes in bowel habits. He has a chronic low appetite and has lost about 10 kg since his cancer diagnosis in November. He reports that his urine is a light [place] colored red. He has not noticed any increased sediment or purulence. He did develop acute worsening right flank pain prior to coming to the ER. He has been having some mild nausea but no vomiting. He was in AFib in the ER initially but was not in AFib RVR. However bedtime arrived to the medical floor he had went into AFib RVR but he had missed his evening doses of his cardiac meds due to his low blood pressure. Review of Systems Review of Systems: 12 systems were reviewed with pertinent positives and negatives per HPI. Except as documented in the HPI, all other systems were reviewed and are negative. [facility], [facility] Past Medical History Medical History (Updated 04/10/25 @ 07:06 by Carmen Gautam DO) CKD (chronic kidney disease) stage 3, GFR 30-59 ml/min Basal cell carcinoma of jawline Prostate CA Systolic dysfunction Noted on echo in 2018 with EF of 40-45% with mild right ventricular enlargement moderate right atrial enlargement severe left atrial enlargement with mild AI/MR and TR but most recent echocardiogram 12/03/2024 demonstrated normal ejection fraction with EF of 55-60% with severe biatrial enlargement and mild pulmonary hypertension. The patient follows with Dr. Carlson Biatrial enlargement Severe Pulmonary hypertension Mild pulmonary hypertension noted on echo 11/2024 Dyslipidemia Emphysema lung Rheumatoid osteoperiostitis Afib (~1981) Surgical History Surgical History (Updated 04/10/25 @ 07:03 by Carmen Gautam DO) Port-A-Cath in place (01/18/25) Right chest History of transurethral resection of bladder tumor (TURBT) (12/17/24) History of colonoscopy with polypectomy History of surgery on arm History of shoulder surgery Family History Family History (Updated 04/10/25 @ 05:45 by Carmen Gautam DO) Sibling Heart disease Skin cancer Father , Age 63 Lymphoma Mother , Age 46 Lung cancer Social History Social History (Updated 04/10/25 @ 05:42 by Carmen Gautam DO) Social History: The patient reports he has been for over 30 years. He does not have any children. He used to smoke drink 4-5 beers a day but quit drinking alcohol altogether in 2021. He smoked up to 1.5 packs of cigarettes per day for about 45 years but quit in 2016. He smokes marijuana daily. Code status: Full code Surrogate decision maker: Gary (brother) Smoking packs per day: 1.5 Smoking cigarettes per day: 30.0 Years smoked: 45 Smoking pack-years: 67.50 Smoking status: Former smoker Tobacco type: cigarettes Second hand tobacco smoke exposure: No Smoking end date: 08/12/16 Alcohol intake: former Drinks per week: 35 Alcohol use details: QUIT 2021 4-5 BEERS DAILY Substance use: current Substance use type: marijuana Other substance usage details: Smoke it 2-3 times a week Last use: 11/30/24 Do You Feel Safe in your Home?: Yes Lack of Transportation: No Lack of Food: Never True Current Housing: I Have Housing Concerned About Future Housing: No Difficulty Paying Gas/Electric Bills: No Difficulty Paying for Meds: No Currently Unemployed: No Education: High School Diploma/GED Difficulty w/ Childcare or Family Care: No Living arrangements: alone Gender identity (if verbalized by the patient): Male Spiritual care concerns: No Meds Home Medications and Allergies Home Medications ?Medication ?Instructions ?Recorded ?Confirmed ?Type nitroglycerin 0.4 mg sublingual 0.4 mg sublingual Q5M PRN Chest 02/09/21 04/09/25 History tablet Pain vitamin B12 0.5 mg-folic acid 1 mg 1 tablet PO DAILY 02/09/21 04/09/25 History tablet aspirin 325 mg tablet,delayed 325 mg PO DAILY 12/20/21 04/09/25 History release atorvastatin 40 mg tablet 40 mg PO DAILY 12/27/21 04/09/25 History tamsulosin 0.4 mg capsule 0.8 mg PO QAM 02/18/23 04/09/25 History albuterol sulfate 90 mcg/actuation 2 puff inhalation Q6H PRN 12/02/24 04/09/25 History aerosol inhaler shortness of breath or wheezing budesonide-formoterol HFA 160 2 puff inhalation DAILY 12/02/24 04/09/25 History mcg-4.5 mcg/actuation aerosol inhaler (Symbicort) cholecalciferol (vitamin D3) 50 50 mcg PO DAILY 03/15/25 04/09/25 History mcg (2,000 unit) capsule digoxin 125 mcg (0.125 mg) tablet 125 mcg PO BID #60 tabs 04/01/25 04/09/25 Rx diltiazem HCl 30 mg tablet 30 mg PO BID #60 tabs 04/01/25 04/09/25 Rx linezolid 600 mg tablet 600 mg PO Q12HR #12 tabs 04/01/25 04/09/25 Rx metoprolol succinate 50 mg 50 mg PO BID #60 tabs 04/01/25 04/09/25 Rx tablet,extended release 24 hr acetaminophen 500 mg capsule 1,000 mg PO Q6H PRN pain 04/09/25 04/09/25 History lidocaine-prilocaine 2.5 %-2.5 % 04/09/25 History topical cream Allergies Allergy/AdvReac Type Severity Reaction Status Date / Time No Known Allergies Allergy Verified 04/09/25 23:07 Vital Signs Vital Signs - 24 hr 04/09/25 15:00 04/09/25 15:14 04/09/25 15:30 Temperature 98.0 F Pulse Rate 72 96 85 Respiratory Rate 17 18 16 Blood Pressure 109/71 89/75 L 95/69 L Pulse Oximetry 95 98 98 Oxygen Delivery Room Air 04/09/25 16:00 04/09/25 18:15 04/09/25 18:45 Temperature Pulse Rate 88 84 81 Respiratory Rate 19 18 24 H Blood Pressure 92/68 L 95/57 L 92/65 L Pulse Oximetry 96 92 93 Oxygen Delivery 04/09/25 19:30 04/09/25 19:45 04/09/25 20:15 Temperature Pulse Rate 98 96 98 Respiratory Rate 17 15 17 Blood Pressure 101/69 94/68 L 92/75 L Pulse Oximetry 100 99 97 Oxygen Delivery 04/09/25 20:45 04/09/25 22:48 04/09/25 23:12 Temperature 98.0 F Pulse Rate 91 70 100 Respiratory Rate 20 18 16 Blood Pressure 104/69 113/80 105/71 Pulse Oximetry 95 95 92 Oxygen Delivery 04/10/25 00:36 04/10/25 00:36 Temperature Pulse Rate 122 H 122 H Respiratory Rate Blood Pressure Pulse Oximetry Oxygen Delivery Exam Narrative: Weight 81.2 kg BMI 23.6 Const: Other: Chronically ill-appearing, cachectic, appears older than stated age HENMT: Other: Mucous membranes are tacky, no oral pharyngeal erythema, edentulous in upper and lower drawl, temporal wasting Eyes: Other: No scleral icterus, no conjunctival pallor, pupils are equal and reactive Neck: Other: No JVD, no lymphadenopathy Resp: Other: Clear to auscultation bilaterally, no increased work of breathing Cardio: Other: Irregularly irregular, mildly tachycardic, no murmur GI: Other: Soft, nontender, nondistended, positive bowel sounds : Other: [place] colored urine in Myers catheter bag urine is cloudy Skin: Other: Generalized pallor, non jaundice Neuro: Other: Alert orient x4, speech is clear, no facial asymmetry Extrem: Other: No clubbing, no cyanosis, trace edema bilateral lower extremities Psych: Other: Appropriate mood and affect, pleasant and cooperative, judgment and insight intact H&P: Results Labs Labs: Laboratory Tests 04/09/25 17:46 04/09/25 17:46 04/09/25 17:46 WBC 6.3 RBC 2.92 L Hgb 9.9 L Hct 30.1 L MCV 103.1 H MCH 33.9 MCHC 32.9 RDW 15.1 H Plt Count 197 MPV 10.2 Immature Gran % (Auto) 1.0 H Neut % (Auto) 79.0 H Lymph % (Auto) 6.5 L [place] % (Auto) 11.1 H Eos % (Auto) 2.1 Baso % (Auto) 0.3 Lymph # (Auto) 0.41 L [place] # (Auto) 0.7 H Eos # (Auto) 0.1 Baso # (Auto) 0.0 Abs Immat Gran (auto) 0.06 H Absolute Neuts (auto) 5.0 Absolute Nucleated RBC 0.000 Nucleated RBC % 0.0 Sodium 133 L Potassium 3.9 Chloride 107 Carbon Dioxide 20 L Anion Gap 6 BUN 26 H Creatinine 1.41 H Estim Creat Clear Calc Not Reportable Estimated GFR 50 L Glucose 108 Calcium 8.1 L Total Bilirubin 0.7 AST 29 ALT 24 Alkaline Phosphatase 76 Total Protein 6.4 Albumin 2.6 L Lipase 29 Urine Color Red H Urine Appearance Other Urine pH 6.0 Ur Specific [place] 1.030 Urine Protein 3+ H Urine Glucose (UA) Negative Urine Ketones Trace H Ur Blood (Man) 3+ H Urine Nitrate Negative Urine Bilirubin 1+ H Urine Urobilinogen 0.2 Leukocyte Esterase Rfl 1+ H Urine RBC >100 H Urine WBC 21-30 H Impressions Abdomen/Pelvis CT 04/09/25 19:36 IMPRESSION: 1. Moderate emphysema with bronchial wall thickening and superimposed smooth septal line thickening and groundglass opacities in the bilateral lower lungs most likely pulmonary edema although differential would include pneumonia. 2. Moderate-sized left and small right pleural effusions. 3. Mild right hydronephrosis with bilateral intraureteral stents in expected position and Myers catheter in the decompressed bladder. There is some urothelial enhancement at the right renal pelvis which raises concern for ascending urinary tract infection and would correlate with urinalysis. EKG: Atrial fibrillation rate 98 normal QT C4 37 low-voltage QRS extremity leads moderate ST depression in limb leads. Cardiology interpretation All imaging and EKGs personally reviewed and interpreted. And unless stated otherwise agree with radiologic and cardiology interpretation. 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 In the ER he received 1 L fluid bolus and 1 dose of midodrine with improvement in his blood pressures. His blood pressures have remained stable for the rest the night with systolics in the low 100s. He states he is supposed to follow-up with Dr. Carlson as outpatient in a couple of days. Will consult Dr. Carlson for further recommendations and continuity care. The patient's blood pressures also did respond to IV fluids I gave an additional 1 L of IV fluids at 100 mL an hour besides the bolus the patient her a received in the ER. Given his improved blood pressure I did order his evening medications including beta-mary ann, digoxin and Cardizem. His heart rate did improve and his blood pressures did remain stable. He does have bilateral pleural effusions but does appear intervascular volume depleted with tacky mucous membranes no evidence of JVD and only trace pedal edema. Will monitor fluid status closely and continue cardiac medication. Patient is not on chronic anticoagulation due to chads Vasc score of 0 will continue monitor on telemetry. The patient's blood pressures could also be effective by possible underlying UTI given patient has developed recurrent hematuria and acute recurrence of flank pain with CT evidence of possible pyelonephritis of the right kidney. Unfortunately patient's most recent urine culture grew out VRE that is resistant to everything except for nitrofurantoin. The patient's case had been discussed with the Infectious Disease wine sales representative during his last hospitalization who recommended that the patient be discharged on linezolid. Will continue linezolid at this point and await repeat culture results. The patient's culture from the last hospitalization was only [phone]. Will consult Urology for further recommendations. The patient states that he is post ago for follow-up with Urology in the next week or so after a a had followed up with Cardiology. Will request assistance of infectious disease provider regarding further antibiotic management. The patient's kidney function is actually stable compared to prior. Will continue monitor urine output closely. Avoid nephrotoxic medications. Will consult dietitian for nutritional supplement recommendations. Patient has been admitted as observation status. MEDICAL DECISION MAKING NARRATIVE -Spoke with the ED provider in detail regarding patient's evaluation, workup and management -Patient seen and examined at bedside -Collaborated with patient's nurse at the bedside in detail and addressed all concerns -Labs, electrolytes, radiology, investigations and test results personally reviewed and interpreted unless otherwise specified -ED/Consult/Nursing/Ancilliary notes on the chart reviewed and appreciated -Spoke with patient at bedside and diagnosis and plan of care was discussed. All questions answered. Quality VTE Prophylaxis VTE prophylaxis: mechanical ordered (SCDs) Hospitalist MIPS Advance Care Plan I have confirmed that the patient's Advanced Care Plan is present, code status is documented, or surrogate decision maker is listed in patient medical record.: Yes Medication Reconciliation I have utilized all available resources to obtain, update and review the patients current medications (includes all prescriptions, OTC, herbals, cannabis, and nutritional supplements).: Yes
[2025-04-10] MEDS: ONDANSETRON INJ 4 MG/2 ML VIAL IV PUSH (03:06)
[2025-04-10] MEDS: FLUTICASONE/SALMETEROL 115-21 MCG INHALER 1 PUFF 2 PUFF INHALATION ×2 (08:00→20:24)
--- NOTE | 2025-04-10 08:06 | P.PNIM_ITS ---
Progress Note: A&P Assessment and Plan (1) Atrial fibrillation with RVR: Code(s): I48.91 - Unspecified atrial fibrillation Status: Acute Assessment and Plan: Patient presents with AFib RVR and low blood pressures from outpatient Oncology Services EKG: Atrial fibrillation rate 98 normal QT C4 37 low-voltage QRS extremity leads moderate ST depression in limb leads. Patient is not on chronic anticoagulation due to chads Vasc score of 0 -continue telemetry. - cardiology was consulted: Chronic. [id number] 1. On aspirin. Rate controlled with Digoxin, Metoprolol and Diltiazem. Rate is OK right now at 90 bpm, BP is at 85 SBP. Nurse just gave Midodrine, apparently he was not discharged on this medication. Will start Midodrine 10 mg PO TID to support BP. Rate control to be continued with Digoxin 125 mcg BID, Metoprolol Succinate 50 mg BID, Diltiazem 30 mg BID. No further cardiac workup, please call with any questions. (2) Pyelonephritis: Code(s): N12 - Tubulo-interstitial nephritis, not specified as acute or chronic Status: Acute Assessment and Plan: Abdomen/Pelvis CT 04/09/25 19:36 IMPRESSION: 1. Moderate emphysema with bronchial wall thickening and superimposed smooth septal line thickening and groundglass opacities in the bilateral lower lungs most likely pulmonary edema although differential would include pneumonia. 2. Moderate-sized left and small right pleural effusions. 3. Mild right hydronephrosis with bilateral intraureteral stents in expected position and Myers catheter in the decompressed bladder. There is some urothelial enhancement at the right renal pelvis which raises concern for ascending urinary tract infection and would correlate with urinalysis. -urology consulted - of note- pt's most recent urine culture grew out VRE that is resistant to everything except for nitrofurantoin. The Infectious Disease online advertising manager during his last hospitalization recommended that the patient be discharged on linezolid. Will continue linezolid at this point and await repeat culture results. ID consulted for further recommendations urology was consulted: 04/10: * High-grade non metastatic muscle invasive bladder cancer being managed with chemoradiation. Ureteral obstruction managed with chronic indwelling ureteral stents which were due to be changed. * Patient admitted with, what appears to be, right pyelonephritis. ID consult id and currently treating with linezolid pending culture results * Patient is scheduled for another attempt ureteral stent exchange next , 04/15/25. Will keep those plans an as is currently. 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: Code(s): Z86.19 - Personal history of other infectious and parasitic diseases Status: Acute Assessment and Plan: ID consulted continue linezolid for now-culture pending (5) CKD (chronic kidney disease) stage 3, GFR 30-59 ml/min: Qualifiers: Chronic kidney disease stage 3 subtype: stage 3a (GFR 45-59) Qualified Code(s): N18.31 - Chronic kidney disease, stage 3a Code(s): N18.30 - Chronic kidney disease, stage 3 unspecified Status: Acute (6) Severe protein-calorie malnutrition: Code(s): E43 - Unspecified severe protein-calorie malnutrition Status: Acute Assessment and Plan: dietitian consult ordered prior for nutritional supplement recommendations. Plan In the ER he received 1 L fluid bolus and 1 dose of midodrine with improvement in his blood pressures. The patient's blood pressures also did respond to IV fluids I gave an additional 1 L of IV fluids at 100 mL an hour besides the bolus the patient her a received in the ER. Since bp improved- his cardiac meds were reordered per admitting provider including beta-mary ann, digoxin and Cardizem. His heart rate did improve and his blood pressures did remain stable. - He does have bilateral pleural effusions but does appear intervascular volume depleted with tacky mucous membranes no evidence of JVD and only trace pedal edema. -monitor fluid status closely and continue cardiac medication. Time Spent With Patient Time with patient: Greater than 35 minutes Subjective Date/time seen: 04/10/25 08:06 Interval history: Retrieved from H/P: 69-year-old unfortunate male with a past medical history of emphysema, rheumatoid arthritis, relatively recent diagnosis within the year of atrial fibrillation, chronic kidney disease stage 3, BPH, and recent diagnosis stage II high-grade invasive urothelial carcinoma status post TURBT 12/2024 who presented to the ER from cancer center due to low blood pressures. The patient reports that he was went to the Cancer Center to receive his chemotherapy. According to the Oncology notes it looks like the patient is receiving adjunctive chemotherapy with cisplatin and Gemzar. He is also receiving radiation therapy. He reports that he has been having some lightheadedness with position changes. He denies any recent syncope or falls. He denies any fevers but has been feeling chilled. He denies any diarrhea or changes in bowel habits. He has a chronic low appetite and has lost about 10 kg since his cancer diagnosis in November. He reports that his urine is a light [place] colored red. He has not noticed any increased sediment or purulence. He did develop acute worsening right flank pain prior to coming to the ER. He has been having some mild nausea but no vomiting. He was in AFib in the ER initially but was not in AFib RVR. However bedtime arrived to the medical floor he had went into AFib RVR but he had missed his evening doses of his cardiac meds due to his low blood pressure. Pt is seen and examined. He is resting in bed, reports chronic pain but nothing is acute now. Denies nausea/v/d. NO chest pain, no sob. Review of Systems Review of Systems: 12 systems were reviewed with pertinent positives and negatives per HPI. Except as documented in the HPI, all other systems were reviewed and are negative. Exam Narrative: Weight 81.2 kg BMI 23.6 Const: Other: Chronically ill-appearing, cachectic, appears older than stated age HENMT: Other: Mucous membranes are tacky, no oral pharyngeal erythema, edentulous in upper and lower drawl, temporal wasting Eyes: Other: No scleral icterus, no conjunctival pallor, pupils are equal and reactive Neck: Other: No JVD, no lymphadenopathy Resp: Other: Clear to auscultation bilaterally, no increased work of breathing Cardio: Other: Irregularly irregular, mildly tachycardic, no murmur GI: Other: Soft, nontender, nondistended, positive bowel sounds : Other: [place] colored urine in Myers catheter bag urine is cloudy Skin: Other: Generalized pallor, non jaundice Neuro: Other: Alert orient x4, speech is clear, no facial asymmetry Extrem: Other: No clubbing, no cyanosis, trace edema bilateral lower extremities Psych: Other: Appropriate mood and affect, pleasant and cooperative, judgment and insight intact Objective Data Vital Signs Vital Signs: Vital Signs - 24 hr 04/09/25 15:00 04/09/25 15:14 04/09/25 15:30 Temperature 98.0 F Pulse Rate 72 96 85 Respiratory Rate 17 18 16 Blood Pressure 109/71 89/75 L 95/69 L Pulse Oximetry 95 98 98 Oxygen Delivery Room Air 04/09/25 16:00 04/09/25 18:15 04/09/25 18:45 Temperature Pulse Rate 88 84 81 Respiratory Rate 19 18 24 H Blood Pressure 92/68 L 95/57 L 92/65 L Pulse Oximetry 96 92 93 Oxygen Delivery 04/09/25 19:30 04/09/25 19:45 04/09/25 20:15 Temperature Pulse Rate 98 96 98 Respiratory Rate 17 15 17 Blood Pressure 101/69 94/68 L 92/75 L Pulse Oximetry 100 99 97 Oxygen Delivery 04/09/25 20:45 04/09/25 22:48 04/09/25 23:12 Temperature 98.0 F Pulse Rate 91 70 100 Respiratory Rate 20 18 16 Blood Pressure 104/69 113/80 105/71 Pulse Oximetry 95 95 92 Oxygen Delivery 04/09/25 23:51 04/10/25 00:36 04/10/25 00:36 Temperature Pulse Rate 122 H 122 H Respiratory Rate Blood Pressure Pulse Oximetry Oxygen Delivery Room Air 04/10/25 04:00 04/10/25 04:47 04/10/25 08:02 Temperature 97.6 F Pulse Rate 99 116 H 97 Respiratory Rate 14 20 Blood Pressure 94/55 L Pulse Oximetry 92 95 Oxygen Delivery Room Air 04/10/25 08:02 Temperature Pulse Rate 97 Respiratory Rate 20 Blood Pressure Pulse Oximetry Oxygen Delivery Intake/Output Intake/Output: Intake & Output 04/07/25 04/08/25 04/09/25 04/10/25 23:59 23:59 23:59 23:59 Intake Total 1050 250 Output Total 350 Balance 1050 -100 Meds/Results Medications: Active Medications Generic Name Dose Route Start Last Admin Trade Name Freq PRN Reason Stop Dose Admin Acetaminophen 1,000 mg 04/09/25 23:47 04/10/25 01:44 Acetaminophen 500 Mg Tablet PO 1,000 mg Q6H PRN Administration pain 1-3 or fever Aspirin 325 mg 04/10/25 09:00 Aspirin 325 Mg Enteric Tablet PO DAILY BAGN Atorvastatin Calcium 40 mg 04/10/25 09:00 Atorvastatin 40 Mg Tablet PO DAILY [facility] Digoxin 125 mcg 04/09/25 23:50 04/10/25 00:36 Digoxin Tab 125 Mcg Tablet PO 125 mcg BID [facility] Administration Diltiazem HCl 30 mg 04/09/25 23:50 04/10/25 00:36 Diltiazem Hcl 30 Mg Tablet PO 30 mg BID BANG Administration Sodium Chloride 1,000 mls @ 100 mls/hr 04/09/25 23:55 04/10/25 00:40 Normal Saline Iv IV CONT 04/10/25 09:54 100 mls/hr .Q10H BANG Administration Linezolid 600 mg 04/10/25 09:00 Linezolid 600 Mg Tablet PO Q12HR [facility] Metoprolol Succinate 50 mg 04/09/25 23:50 04/10/25 00:36 Metoprolol Succinate Ext Rel 50 Mg Tabcr PO 50 mg BID [facility] Administration Nonformulary 1 each 04/10/25 09:00 Nutritional XX 04/11/25 08:59 Supplement - Vitamin DAILY [facility] [id number] Acid 0.5- 1 Mg Tablet Ondansetron HCl 4 mg 04/09/25 23:50 04/10/25 03:06 Ondansetron Inj 4 Mg/2 Ml Vial IV PUSH 4 mg Q6H PRN Administration Nausea And Vomiting Fluticasone/Salmeterol 2 puff 04/10/25 08:00 04/10/25 08:00 Fluticasone/Salmeterol 115-21 Mcg Inhaler 1 Puff INHALATION 2 puff Q12HRT [facility] Administration Tamsulosin HCl 0.8 mg 04/10/25 09:00 Tamsulosin Hcl 0.4 Mg Capsule PO QAM [facility] Vitamin D 50 mcg 04/10/25 09:00 Cholecalciferol (Vitamin D3) 25 Mcg (1,000 Units) Tablet PO DAILY [facility] Radiology Results: ITS Impressions Abdomen/Pelvis CT 04/09/25 19:36 IMPRESSION: 1. Moderate emphysema with bronchial wall thickening and superimposed smooth septal line thickening and groundglass opacities in the bilateral lower lungs most likely pulmonary edema although differential would include pneumonia. 2. Moderate-sized left and small right pleural effusions. 3. Mild right hydronephrosis with bilateral intraureteral stents in expected position and Myers catheter in the decompressed bladder. There is some urothelial enhancement at the right renal pelvis which raises concern for ascending urinary tract infection and would correlate with urinalysis. Labs Labs: Laboratory Results - last 24 hr 04/09/25 17:46 WBC 6.3 RBC 2.92 L Hgb 9.9 L Hct 30.1 L MCV 103.1 H MCH 33.9 MCHC 32.9 RDW 15.1 H Plt Count 197 MPV 10.2 Immature Gran % (Auto) 1.0 H Neut % (Auto) 79.0 H Lymph % (Auto) 6.5 L Barry % (Auto) 11.1 H Eos % (Auto) 2.1 Baso % (Auto) 0.3 Lymph # (Auto) 0.41 L Barry # (Auto) 0.7 H Eos # (Auto) 0.1 Baso # (Auto) 0.0 Abs Immat Gran (auto) 0.06 H Absolute Neuts (auto) 5.0 Absolute Nucleated RBC 0.000 Nucleated RBC % 0.0 Sodium 133 L Potassium 3.9 Chloride 107 Carbon Dioxide 20 L Anion Gap 6 BUN 26 H Creatinine 1.41 H Estim Creat Clear Calc Not Reportable Estimated GFR 50 L Glucose 108 Calcium 8.1 L Total Bilirubin 0.7 AST 29 ALT 24 Alkaline Phosphatase 76 Total Protein 6.4 Albumin 2.6 L Lipase 29 Urine Color Red H Urine Appearance Other Urine pH 6.0 Ur Specific [place] 1.030 Urine Protein 3+ H Urine Glucose (UA) Negative Urine Ketones Trace H Ur Blood (Man) 3+ H Urine Nitrate Negative Urine Bilirubin 1+ H Urine Urobilinogen 0.2 Leukocyte Esterase Rfl 1+ H Urine RBC >100 H Urine WBC 21-30 H Quality VTE Prophylaxis VTE prophylaxis: mechanical ordered (SCDs)
[2025-04-10] MEDS: ASPIRIN 325 MG ENTERIC TABLET PO (08:48)
[2025-04-10] MEDS: ATORVASTATIN 40 MG TABLET PO (08:48)
[2025-04-10] MEDS: CHOLECALCIFEROL (VITAMIN D3) 25 MCG (1,000 UNITS) TABLET 50 MCG PO (08:48)
[2025-04-10] MEDS: TAMSULOSIN HCL 0.4 MG CAPSULE 0.8 MG PO (08:48)
[2025-04-10] MEDS: LINEZOLID 600 MG TABLET PO ×2 (08:48→20:30)
--- NOTE | 2025-04-10 08:55 | WPDURCON ---
Assessment and Plan Assessment and plan (1) Obstructive uropathy: Code(s): N13.9 - Obstructive and reflux uropathy, unspecified Status: Acute (2) Urothelial carcinoma of bladder with invasion of muscle: Code(s): C67.9 - Malignant neoplasm of bladder, unspecified Status: Acute Assessment and Plan: High-grade non metastatic muscle invasive bladder cancer being managed with chemoradiation. Ureteral obstruction managed with chronic indwelling ureteral stents which were due to be changed. Patient admitted with, what appears to be, right pyelonephritis. ID consult id and currently treating with linezolid pending culture results Patient is scheduled for another attempt ureteral stent exchange next , 04/15/25. Will keep those plans an as is currently. Urology Consult Note HPI Date Seen: 04/10/25 Requesting Physician: Carmen Gautam DO Primary Care Provider: Raya Lozoya, PA Consult Narrative Narrative: Stanislav Cho is a 69 year old male very well known to me he with high-grade muscle invasive bladder cancer undergoing chemo radiation. He has indwelling ureteral stents due to obstruction of each distal ureter from his bladder cancer. Couple weeks ago he was scheduled for stent exchange but it was canceled on the morning of the procedure because of a tachy arrhythmia. He scheduled again for next [id number] got admitted last night with some hypotension and right flank pain. Imaging suggest he may have a right pyelonephritis. Review of Systems Review of Systems: All systems reviewed & are unremarkable except as noted in HPI and below PMFSH Past Medical History Medical History (Updated 04/10/25 @ 07:06 by Carmen Gautam DO) CKD (chronic kidney disease) stage 3, GFR 30-59 ml/min Basal cell carcinoma of jawline Prostate CA Systolic dysfunction Noted on echo in 2018 with EF of 40-45% with mild right ventricular enlargement moderate right atrial enlargement severe left atrial enlargement with mild AI/MR and TR but most recent echocardiogram 12/03/2024 demonstrated normal ejection fraction with EF of 55-60% with severe biatrial enlargement and mild pulmonary hypertension. The patient follows with Dr. Carlson Biatrial enlargement Severe Pulmonary hypertension Mild pulmonary hypertension noted on echo 11/2024 Dyslipidemia Emphysema lung Rheumatoid osteoperiostitis Afib (~1981) Surgical History Surgical History (Updated 04/10/25 @ 07:03 by Carmen Gautam DO) Port-A-Cath in place (01/18/25) Right chest History of transurethral resection of bladder tumor (TURBT) (12/17/24) History of colonoscopy with polypectomy History of surgery on arm History of shoulder surgery Family History Family History (Updated 04/10/25 @ 05:45 by Carmen Gautam DO) Sibling Heart disease Skin cancer Father , Age 63 Lymphoma Mother , Age 46 Lung cancer Social History Social History (Updated 04/10/25 @ 05:42 by Carmen Gautam DO) Social History: The patient reports he has been for over 30 years. He does not have any children. He used to smoke drink 4-5 beers a day but quit drinking alcohol altogether in 2021. He smoked up to 1.5 packs of cigarettes per day for about 45 years but quit in 2016. He smokes marijuana daily. Code status: Full code Surrogate decision maker: Gary (brother) Smoking packs per day: 1.5 Smoking cigarettes per day: 30.0 Years smoked: 45 Smoking pack-years: 67.50 Smoking status: Former smoker Tobacco type: cigarettes Second hand tobacco smoke exposure: No Smoking end date: 08/12/16 Alcohol intake: former Drinks per week: 35 Alcohol use details: QUIT 2021 4-5 BEERS DAILY Substance use: current Substance use type: marijuana Other substance usage details: Smoke it 2-3 times a week Last use: 11/30/24 Do You Feel Safe in your Home?: Yes Lack of Transportation: No Lack of Food: Never True Current Housing: I Have Housing Concerned About Future Housing: No Difficulty Paying Gas/Electric Bills: No Difficulty Paying for Meds: No Currently Unemployed: No Education: High School Diploma/GED Difficulty w/ Childcare or Family Care: No Living arrangements: alone Gender identity (if verbalized by the patient): Male Spiritual care concerns: No Meds Home Medications and Allergies Home Medications ?Medication ?Instructions ?Recorded ?Confirmed ?Type nitroglycerin 0.4 mg sublingual 0.4 mg sublingual Q5M PRN Chest 02/09/21 04/09/25 History tablet Pain vitamin B12 0.5 mg-folic acid 1 mg 1 tablet PO DAILY 02/09/21 04/09/25 History tablet aspirin 325 mg tablet,delayed 325 mg PO DAILY 12/20/21 04/09/25 History release atorvastatin 40 mg tablet 40 mg PO DAILY 12/27/21 04/09/25 History tamsulosin 0.4 mg capsule 0.8 mg PO QAM 02/18/23 04/09/25 History albuterol sulfate 90 mcg/actuation 2 puff inhalation Q6H PRN 12/02/24 04/09/25 History aerosol inhaler shortness of breath or wheezing budesonide-formoterol HFA 160 2 puff inhalation DAILY 12/02/24 04/09/25 History mcg-4.5 mcg/actuation aerosol inhaler (Symbicort) cholecalciferol (vitamin D3) 50 50 mcg PO DAILY 03/15/25 04/09/25 History mcg (2,000 unit) capsule digoxin 125 mcg (0.125 mg) tablet 125 mcg PO BID #60 tabs 04/01/25 04/09/25 Rx diltiazem HCl 30 mg tablet 30 mg PO BID #60 tabs 04/01/25 04/09/25 Rx linezolid 600 mg tablet 600 mg PO Q12HR #12 tabs 04/01/25 04/09/25 Rx metoprolol succinate 50 mg 50 mg PO BID #60 tabs 04/01/25 04/09/25 Rx tablet,extended release 24 hr acetaminophen 500 mg capsule 1,000 mg PO Q6H PRN pain 04/09/25 04/09/25 History lidocaine-prilocaine 2.5 %-2.5 % 04/09/25 History topical cream Allergies Allergy/AdvReac Type Severity Reaction Status Date / Time No Known Allergies Allergy Verified 04/09/25 23:07 Vital Signs Vital Signs - 24 hr 04/09/25 15:00 04/09/25 15:14 04/09/25 15:30 Temperature 98.0 F Pulse Rate 72 96 85 Respiratory Rate 17 18 16 Blood Pressure 109/71 89/75 L 95/69 L Pulse Oximetry 95 98 98 Oxygen Delivery Room Air 04/09/25 16:00 04/09/25 18:15 04/09/25 18:45 Temperature Pulse Rate 88 84 81 Respiratory Rate 19 18 24 H Blood Pressure 92/68 L 95/57 L 92/65 L Pulse Oximetry 96 92 93 Oxygen Delivery 04/09/25 19:30 04/09/25 19:45 04/09/25 20:15 Temperature Pulse Rate 98 96 98 Respiratory Rate 17 15 17 Blood Pressure 101/69 94/68 L 92/75 L Pulse Oximetry 100 99 97 Oxygen Delivery 04/09/25 20:45 04/09/25 22:48 04/09/25 23:12 Temperature 98.0 F Pulse Rate 91 70 100 Respiratory Rate 20 18 16 Blood Pressure 104/69 113/80 105/71 Pulse Oximetry 95 95 92 Oxygen Delivery 04/09/25 23:51 04/10/25 00:36 04/10/25 00:36 Temperature Pulse Rate 122 H 122 H Respiratory Rate Blood Pressure Pulse Oximetry Oxygen Delivery Room Air 04/10/25 04:00 04/10/25 04:47 04/10/25 08:02 Temperature 97.6 F Pulse Rate 99 116 H 97 Respiratory Rate 14 20 Blood Pressure 94/55 L Pulse Oximetry 92 95 Oxygen Delivery Room Air 04/10/25 08:02 04/10/25 08:48 Temperature Pulse Rate 97 91 Respiratory Rate 20 Blood Pressure Pulse Oximetry Oxygen Delivery Exam Const: General: no acute distress Resp: Effort & Inspection: normal respiratory effort GI: Inspection: non-distended GI Palp: No abdominal tenderness and No Guarding due to palpation present (GI) Auscultation: normal bowel sounds Urinary Catheter: Urinary Catheter: patent and draining and urine pink Results Labs 04/09/25 17:46 04/09/25 17:46 Labs: Short CBC 04/09/25 Range/Units 17:46 WBC 6.3 (4.5-10.0) K/mm3 Hgb 9.9 L (14.0-18.0) g/dL Hct 30.1 L (42.0-52.0) % Plt Count 197 (150-375) k/mm3 BMP 04/09/25 17:46 Sodium 133 L Potassium 3.9 Chloride 107 Carbon Dioxide 20 L BUN 26 H Creatinine 1.41 H Glucose 108 Calcium 8.1 L Liver Function 04/09/25 Range/Units 17:46 Total Bilirubin 0.7 (0.2-1.3) mg/dL AST 29 (17-59) U/L ALT 24 (6-50) U/L Alkaline Phosphatase 76 (38-126) U/L Albumin 2.6 L (3.5-5.1) g/dL Urine 04/09/25 Range/Units 17:46 Urine Color Red H (Yellow) Urine Appearance Other (Clear) Urine pH 6.0 (5.0-9.0) Ur Specific [place] 1.030 (1.001-1.035) Urine Protein 3+ H (Negative) mg/dL Urine Glucose (UA) Negative (Negative) mg/dL
[2025-04-10] MEDS: MIDODRINE HCL 10 MG TABLET PO ×3 (09:14→17:25)
--- NOTE | 2025-04-10 09:29 | PM.CNCAR ---
Assessment and Plan Assessment and plan (1) Afib: Onset Date: ~1981 Code(s): I48.91 - Unspecified atrial fibrillation Status: Acute Assessment and Plan: Chronic. [id number] 1. On aspirin. Rate controlled with Digoxin, Metoprolol and Diltiazem. Rate is OK right now at 90 bpm, BP is at 85 SBP. Nurse just gave Midodrine, apparently he was not discharged on this medication. Will start Midodrine 10 mg PO TID to support BP. Rate control to be continued with Digoxin 125 mcg BID, Metoprolol Succinate 50 mg BID, Diltiazem 30 mg BID. No further cardiac workup, please call with any questions. (2) Bladder cancer: Code(s): C67.9 - Malignant neoplasm of bladder, unspecified Status: Acute Assessment and Plan: Followed by oncology and urology. History of Present Illness History of Present Illness Consult date/time: 04/10/25 09:29 Reason For Visit: Pyelonephritis Narrative: 69 yr old man who is my regular cardiology patient presents to ER with low BP. He has a history of atrial fibrillation since 1981, COPD, remote smoking, bladder cancer. States he was receiving treatment by his oncologist when they noted a low BP and sent him in to ER. He has feeling of heat in his bladder and right flank. In ER it was noted his BP was in 90's SBP and HR low 100's. States when he moves around his HR does increase such as going from one bed to the next this morning. He is receiving chemo and radiation therapy for bladder cancer and will need to change ureteral stents. States he can walk with his cane up to 1/2 block due to RAMSEY. Denies orthopnea, PND, edema, dizziness, palpitations. Cardiovascular Procedures Journeyman Level Acoustic Analyst:: 08/24/17 [facility] cardiac cath: Minimal plaque in LCx otherwise normal coronaries. Echo/MUGA:: 12/03/24 Echo: EF 55-60%, severe biatrial enlargement, mild MR, RVSP 42 mmHg. 09/10/23 Echo: EF 40-45%, severe LAE, RV mod reduced with TAPSE 1.1 cm, mod HIMANSHU, trace AI, mild-mod MR, mild TR, 01/22/22 Echo: EF 40-45%, mild RVE, mod HIMANSHU, severe LAE, mild AI/MR/TR. Electrophysiology:: 12/20/21 EKG: Atrial fib at 108 bpm. 07/02/17 ETT at [facility]: Negative for ischemia; exercised for 3 min, 14 seconds. EKG with atrial fibrillation. Stress Tests:: 01/22/22 Lexiscan myoview: Negative. Review of Systems Review of Systems: All systems reviewed & are unremarkable except as noted in HPI and below Constitutional: Constitutional: Reports as per HPI, Denies chills and Denies fever(s) Cardiovascular: Cardiovascular: Reports as per HPI, Denies chest pain and Denies irregular heart rhythm Respiratory: Respiratory: Reports as per HPI and Denies dyspnea Gastrointestinal: Gastrointestinal: Reports as per HPI and Denies abdominal pain Genitourinary: Genitourinary: Reports as per HPI Musculoskeletal: Musculoskeletal: Reports as per HPI Neurologic: Reports as per HPI, Denies dizziness and Denies syncope [facility] Past Medical History Medical History (Updated 04/10/25 @ 07:06 by Carmen Gautam DO) CKD (chronic kidney disease) stage 3, GFR 30-59 ml/min Basal cell carcinoma of jawline Prostate CA Systolic dysfunction Noted on echo in 2018 with EF of 40-45% with mild right ventricular enlargement moderate right atrial enlargement severe left atrial enlargement with mild AI/MR and TR but most recent echocardiogram 12/03/2024 demonstrated normal ejection fraction with EF of 55-60% with severe biatrial enlargement and mild pulmonary hypertension. The patient follows with Dr. Carlson Biatrial enlargement Severe Pulmonary hypertension Mild pulmonary hypertension noted on echo 11/2024 Dyslipidemia Emphysema lung Rheumatoid osteoperiostitis Afib (~1981) Surgical History Surgical History (Updated 04/10/25 @ 07:03 by Carmen Gautam DO) Port-A-Cath in place (01/18/25) Right chest History of transurethral resection of bladder tumor (TURBT) (12/17/24) History of colonoscopy with polypectomy History of surgery on arm History of shoulder surgery Family History Family History (Updated 04/10/25 @ 05:45 by Carmen Gautam DO) Sibling Heart disease Skin cancer Father , Age 63 Lymphoma Mother , Age 46 Lung cancer Social History Social History (Updated 04/10/25 @ 05:42 by Carmen Gautam DO) Social History: The patient reports he has been for over 30 years. He does not have any children. He used to smoke drink 4-5 beers a day but quit drinking alcohol altogether in 2021. He smoked up to 1.5 packs of cigarettes per day for about 45 years but quit in 2016. He smokes marijuana daily. Code status: Full code Surrogate decision maker: Gary (brother) Smoking packs per day: 1.5 Smoking cigarettes per day: 30.0 Years smoked: 45 Smoking pack-years: 67.50 Smoking status: Former smoker Tobacco type: cigarettes Second hand tobacco smoke exposure: No Smoking end date: 08/12/16 Alcohol intake: former Drinks per week: 35 Alcohol use details: QUIT 2021 4-5 BEERS DAILY Substance use: current Substance use type: marijuana Other substance usage details: Smoke it 2-3 times a week Last use: 11/30/24 Do You Feel Safe in your Home?: Yes Lack of Transportation: No Lack of Food: Never True Current Housing: I Have Housing Concerned About Future Housing: No Difficulty Paying Gas/Electric Bills: No Difficulty Paying for Meds: No Currently Unemployed: No Education: High School Diploma/GED Difficulty w/ Childcare or Family Care: No Living arrangements: alone Gender identity (if verbalized by the patient): Male Spiritual care concerns: No Meds Home Medications and Allergies Home Medications ?Medication ?Instructions ?Recorded ?Confirmed ?Type nitroglycerin 0.4 mg sublingual 0.4 mg sublingual Q5M PRN Chest 02/09/21 04/09/25 History tablet Pain vitamin B12 0.5 mg-folic acid 1 mg 1 tablet PO DAILY 02/09/21 04/09/25 History tablet aspirin 325 mg tablet,delayed 325 mg PO DAILY 12/20/21 04/09/25 History release atorvastatin 40 mg tablet 40 mg PO DAILY 12/27/21 04/09/25 History tamsulosin 0.4 mg capsule 0.8 mg PO QAM 02/18/23 04/09/25 History albuterol sulfate 90 mcg/actuation 2 puff inhalation Q6H PRN 12/02/24 04/09/25 History aerosol inhaler shortness of breath or wheezing budesonide-formoterol HFA 160 2 puff inhalation DAILY 12/02/24 04/09/25 History mcg-4.5 mcg/actuation aerosol inhaler (Symbicort) cholecalciferol (vitamin D3) 50 50 mcg PO DAILY 03/15/25 04/09/25 History mcg (2,000 unit) capsule digoxin 125 mcg (0.125 mg) tablet 125 mcg PO BID #60 tabs 04/01/25 04/09/25 Rx diltiazem HCl 30 mg tablet 30 mg PO BID #60 tabs 04/01/25 04/09/25 Rx linezolid 600 mg tablet 600 mg PO Q12HR #12 tabs 04/01/25 04/09/25 Rx metoprolol succinate 50 mg 50 mg PO BID #60 tabs 04/01/25 04/09/25 Rx tablet,extended release 24 hr acetaminophen 500 mg capsule 1,000 mg PO Q6H PRN pain 04/09/25 04/09/25 History lidocaine-prilocaine 2.5 %-2.5 % 04/09/25 History topical cream Allergies Allergy/AdvReac Type Severity Reaction Status Date / Time No Known Allergies Allergy Verified 04/09/25 23:07 Vital Signs Vital Signs - 24 hr 04/09/25 15:00 04/09/25 15:14 04/09/25 15:30 Temperature 98.0 F Pulse Rate 72 96 85 Respiratory Rate 17 18 16 Blood Pressure 109/71 89/75 L 95/69 L Pulse Oximetry 95 98 98 Oxygen Delivery Room Air 04/09/25 16:00 04/09/25 18:15 04/09/25 18:45 Temperature Pulse Rate 88 84 81 Respiratory Rate 19 18 24 H Blood Pressure 92/68 L 95/57 L 92/65 L Pulse Oximetry 96 92 93 Oxygen Delivery 04/09/25 19:30 04/09/25 19:45 04/09/25 20:15 Temperature Pulse Rate 98 96 98 Respiratory Rate 17 15 17 Blood Pressure 101/69 94/68 L 92/75 L Pulse Oximetry 100 99 97 Oxygen Delivery 04/09/25 20:45 04/09/25 22:48 04/09/25 23:12 Temperature 98.0 F Pulse Rate 91 70 100 Respiratory Rate 20 18 16 Blood Pressure 104/69 113/80 105/71 Pulse Oximetry 95 95 92 Oxygen Delivery 04/09/25 23:51 04/10/25 00:36 04/10/25 00:36 Temperature Pulse Rate 122 H 122 H Respiratory Rate Blood Pressure Pulse Oximetry Oxygen Delivery Room Air 04/10/25 04:00 04/10/25 04:47 04/10/25 08:02 Temperature 97.6 F Pulse Rate 99 116 H 97 Respiratory Rate 14 20 Blood Pressure 94/55 L Pulse Oximetry 92 95 Oxygen Delivery Room Air 04/10/25 08:02 04/10/25 08:48 Temperature Pulse Rate 97 91 Respiratory Rate 20 Blood Pressure Pulse Oximetry Oxygen Delivery Exam Const: General: cooperative, healthy appearing and comfortable Resp: Auscultation: clear to auscultation bilaterally, no crackles, no rales, no rhonchi and no wheezes Cardio: Rate: regular rate Rhythm: abnormal rhythm Heart sounds: no murmurs Peripheral pulses: dorsalis pedis present GI: GI Palp: No abdominal tenderness and Yes Soft to palpation Neuro: General: oriented to person, oriented to place and oriented to time Extrem: Right lower extremity: no edema Left lower extremity: no edema Results Labs and Meds 04/09/25 17:46 04/09/25 17:46 Lab results: Cardiac Enzymes 04/09/25 Range/Units 17:46 AST 29 (17-59) U/L CBC 04/09/25 Range/Units 17:46 WBC 6.3 (4.5-10.0) K/mm3 RBC 2.92 L (4.6-6.20) M/mm3 Hgb 9.9 L (14.0-18.0) g/dL Hct 30.1 L (42.0-52.0) % Plt Count 197 (150-375) k/mm3 Lymph # (Auto) 0.41 L (0.9-3.2) K/mm3 [place] # (Auto) 0.7 H (0.1-0.6) K/mm3 Eos # (Auto) 0.1 (0-0.3) K/mm3 Baso # (Auto) 0.0 (0.0-0.1) K/mm3 Comprehensive Metabolic Panel 04/09/25 Range/Units 17:46 Sodium 133 L (137-145) mmol/L Potassium 3.9 (3.4-5.0) mmol/L Chloride 107 (98-107) mmol/L Carbon Dioxide 20 L (22-30) mmol/L BUN 26 H (9-20) mg/dL Creatinine 1.41 H (0.7-1.3) mg/dL Glucose 108 (65-110) mg/dL Calcium 8.1 L (8.4-10.2) mg/dL AST 29 (17-59) U/L ALT 24 (6-50) U/L Alkaline Phosphatase 76 (38-126) U/L Total Protein 6.4 (6.3-8.2) g/dL Albumin 2.6 L (3.5-5.1) g/dL Intake and Output 04/09/25 04/10/25 04/10/25 23:59 07:59 15:59 Intake Total 1050 250 360 Output Total 350 Balance 1050 -100 360 Intake: IV 1050 Sodium Chloride 0.9% IV 1,000 1000 ml @ 999 mls/hr IV CONT .Q1H1M STA Rx#:[id number] [id number] 1 gm In Sodium 50 Chloride 0.9% IV 50 ml @ 100 mls/hr IVPB ONCE STA Rx#: [id number] Oral 250 360 Output: Catheter Urine 350 Urethral Catheter 350 Patient Weight 04/10/25 23:59 Weight 81.2 kg
--- NOTE | 2025-04-10 23:56 | PC.NURSE ---
Addendum entered by Lizzy Hutton RN 04/11/25 02:43: This nurse spoke with the Hospitalist and they agreed to hold the Metoprolol and Cardizem. Original Note: Day shift held pt cardizem and metoprolol at 1700 today D/T pts BP being 82/58. This Nurse rechecked pt BP at 2330 and it was still low, 88/60. I will continue to hold these meds and follow the patients BP closely. Cardiology is aware of his low BP.
[2025-04-11] VITALS (16 sets, daily range): BP systolic 80–92; BP diastolic 48–54; PULSE 66–110; RESP 16–20; TEMP 36.4–36.7; O2SAT 90–93
--- NOTE | 2025-04-11 07:20 | PM.IMPN ---
Progress Note: A&P Assessment and Plan (1) Atrial fibrillation with RVR: Code(s): I48.91 - Unspecified atrial fibrillation Status: Acute Assessment and Plan: Patient presents with AFib RVR and low blood pressures from outpatient Oncology Services EKG: Atrial fibrillation rate 98 normal QT C4 37 low-voltage QRS extremity leads moderate ST depression in limb leads. Patient is not on chronic anticoagulation due to chads Vasc score of 0 -continue telemetry. - cardiology was consulted: Chronic. [id number] 1. On aspirin. Rate controlled with Digoxin, Metoprolol and Diltiazem. Rate is OK right now at 90 bpm, BP is at 85 SBP. Nurse just gave Midodrine, apparently he was not discharged on this medication. Will start Midodrine 10 mg PO TID to support BP. Rate control to be continued with Digoxin 125 mcg BID, Metoprolol Succinate 50 mg BID, Diltiazem 30 mg BID 8/31 hr stable pt still hypotensive-weak but denies dizziness or any other symptoms-cardiology following continue midodrine (2) Pyelonephritis: Code(s): N12 - Tubulo-interstitial nephritis, not specified as acute or chronic Status: Acute Assessment and Plan: Abdomen/Pelvis CT 04/09/25 19:36 IMPRESSION: 1. Moderate emphysema with bronchial wall thickening and superimposed smooth septal line thickening and groundglass opacities in the bilateral lower lungs most likely pulmonary edema although differential would include pneumonia. 2. Moderate-sized left and small right pleural effusions. 3. Mild right hydronephrosis with bilateral intraureteral stents in expected position and Myers catheter in the decompressed bladder. There is some urothelial enhancement at the right renal pelvis which raises concern for ascending urinary tract infection and would correlate with urinalysis. -urology consulted - of note- pt's most recent urine culture grew out VRE that is resistant to everything except for nitrofurantoin. The Infectious Disease licensing director during his last hospitalization recommended that the patient be discharged on linezolid. Will continue linezolid at this point and await repeat culture results. ID consulted for further recommendations urology was consulted: 04/10: High-grade non metastatic muscle invasive bladder cancer being managed with chemoradiation. Ureteral obstruction managed with chronic indwelling ureteral stents which were due to be changed. Patient admitted with, what appears to be, right pyelonephritis. ID consult id and currently treating with linezolid pending culture results Patient is scheduled for another attempt ureteral stent exchange next , 04/15/25. Will keep those plans an as is currently. 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: Code(s): Z86.19 - Personal history of other infectious and parasitic diseases Status: Acute Assessment and Plan: ID consulted continue linezolid for now-culture pending (5) CKD (chronic kidney disease) stage 3, GFR 30-59 ml/min: Qualifiers: Chronic kidney disease stage 3 subtype: stage 3a (GFR 45-59) Qualified Code(s): N18.31 - Chronic kidney disease, stage 3a Code(s): N18.30 - Chronic kidney disease, stage 3 unspecified Status: Acute (6) Severe protein-calorie malnutrition: Code(s): E43 - Unspecified severe protein-calorie malnutrition Status: Acute Assessment and Plan: dietitian consult ordered prior for nutritional supplement recommendations. Plan In the ER he received 1 L fluid bolus and 1 dose of midodrine with improvement in his blood pressures. The patient's blood pressures also did respond to IV fluids I gave an additional 1 L of IV fluids at 100 mL an hour besides the bolus the patient her a received in the ER. Since bp improved- his cardiac meds were reordered per admitting provider including beta-mary ann, digoxin and Cardizem. His heart rate did improve and his blood pressures did remain stable. - He does have bilateral pleural effusions but does appear intervascular volume depleted with tacky mucous membranes no evidence of JVD and only trace pedal edema. -monitor fluid status closely and continue cardiac medication. Time Spent With Patient Time with patient: 25 - 35 minutes Subjective Date/time seen: 04/11/25 07:20 Interval history: Retrieved from H/P: 69-year-old unfortunate male with a past medical history of emphysema, rheumatoid arthritis, relatively recent diagnosis within the year of atrial fibrillation, chronic kidney disease stage 3, BPH, and recent diagnosis stage II high-grade invasive urothelial carcinoma status post TURBT 12/2024 who presented to the ER from [facility] due to low blood pressures. The patient reports that he was went to the [facility] to receive his chemotherapy. According to the Oncology notes it looks like the patient is receiving adjunctive chemotherapy with cisplatin and Gemzar. He is also receiving radiation therapy. He reports that he has been having some lightheadedness with position changes. He denies any recent syncope or falls. He denies any fevers but has been feeling chilled. He denies any diarrhea or changes in bowel habits. He has a chronic low appetite and has lost about 10 kg since his cancer diagnosis in November. He reports that his urine is a light James-Aid colored red. He has not noticed any increased sediment or purulence. He did develop acute worsening right flank pain prior to coming to the ER. He has been having some mild nausea but no vomiting. He was in AFib in the ER initially but was not in AFib RVR. However bedtime arrived to the medical floor he had went into AFib RVR but he had missed his evening doses of his cardiac meds due to his low blood pressure. Pt is seen and examined. He is resting in bed, reports chronic pain but nothing is acute now. Denies nausea/v/d. NO chest pain, no sob. 04/11- noted lower BP-card following. Pt is weak but alert and denies chest pain, palpitation, dizziness. Pt is taking midodrine. denies nausea.vomiting, no diarrhea. hypotensive, with elevated HR this morning- cardiology was notified and aware. Review of Systems Review of Systems: 12 systems were reviewed with pertinent positives and negatives per HPI. Except as documented in the HPI, all other systems were reviewed and are negative. Exam Narrative: Weight 81.2 kg BMI 23.6 Const: Other: Chronically ill-appearing, cachectic, appears older than stated age HENMT: Other: Mucous membranes are tacky, no oral pharyngeal erythema, edentulous in upper and lower drawl, temporal wasting Eyes: Other: No scleral icterus, no conjunctival pallor, pupils are equal and reactive Neck: Other: No JVD, no lymphadenopathy Resp: Other: Clear to auscultation bilaterally, no increased work of breathing Cardio: Other: Irregularly irregular, mildly tachycardic, no murmur GI: Other: Soft, nontender, nondistended, positive bowel sounds : Other: [place] colored urine in Myers catheter bag urine is cloudy Skin: Other: Generalized pallor, non jaundice Neuro: Other: Alert orient x4, speech is clear, no facial asymmetry Extrem: Other: No clubbing, no cyanosis, trace edema bilateral lower extremities Psych: Other: Appropriate mood and affect, pleasant and cooperative, judgment and insight intact Objective Data Vital Signs Vital Signs: Vital Signs - 24 hr 04/10/25 08:00 04/10/25 08:02 04/10/25 08:02 Temperature Pulse Rate 103 H 97 97 Respiratory Rate 20 20 Blood Pressure Pulse Oximetry 95 Oxygen Delivery Room Air Fraction of Inspired Oxygen 04/10/25 08:48 04/10/25 08:50 04/10/25 10:23 Temperature Pulse Rate 91 91 Respiratory Rate Blood Pressure Pulse Oximetry Oxygen Delivery Room Air Fraction of Inspired Oxygen 04/10/25 12:00 04/10/25 14:00 04/10/25 16:00 Temperature 97.6 F Pulse Rate 97 93 77 Respiratory Rate 19 Blood Pressure 82/58 L Pulse Oximetry 93 Oxygen Delivery Fraction of Inspired Oxygen 04/10/25 17:25 04/10/25 20:00 04/10/25 20:00 Temperature Pulse Rate 91 83 Respiratory Rate Blood Pressure Pulse Oximetry Oxygen Delivery Room Air Fraction of Inspired Oxygen 04/10/25 20:25 04/10/25 20:29 04/10/25 20:34 Temperature 98.3 F Pulse Rate 92 92 87 Respiratory Rate 16 16 16 Blood Pressure 98/60 L Pulse Oximetry 93 91 Oxygen Delivery Room Air Fraction of Inspired Oxygen 21 04/10/25 23:26 04/10/25 23:55 04/11/25 00:00 Temperature Pulse Rate 90 Respiratory Rate Blood Pressure 79/56 L 88/60 L Pulse Oximetry Oxygen Delivery Fraction of Inspired Oxygen 04/11/25 03:53 04/11/25 04:00 04/11/25 05:15 Temperature 98.1 F Pulse Rate 88 97 90 Respiratory Rate 16 Blood Pressure 80/54 L Pulse Oximetry 92 Oxygen Delivery Fraction of Inspired Oxygen Intake/Output Intake/Output: Intake & Output 04/08/25 04/09/25 04/10/25 04/11/25 23:59 23:59 23:59 23:59 Intake Total 1050 1090 250 Output Total 1050 650 Balance 1050 40 -400 Meds/Results Medications: Active Medications Generic Name Dose Route Start Last Admin Trade Name Freq PRN Reason Stop Dose Admin Acetaminophen 1,000 mg 04/09/25 23:47 04/10/25 10:24 Acetaminophen 500 Mg Tablet PO 1,000 mg Q6H PRN Administration pain 1-3 or fever Aspirin 325 mg 04/10/25 09:00 04/10/25 08:48 Aspirin 325 Mg Enteric Tablet PO 325 mg DAILY BANG Administration Atorvastatin Calcium 40 mg 04/10/25 09:00 04/10/25 08:48 Atorvastatin 40 Mg Tablet PO 40 mg DAILY BANG Administration Digoxin 125 mcg 04/09/25 23:50 04/10/25 17:25 Digoxin Tab 125 Mcg Tablet PO 125 mcg BID [facility] Administration Diltiazem HCl 30 mg 04/09/25 23:50 04/11/25 03:53 Diltiazem Hcl 30 Mg Tablet PO Not Given BID [facility] Linezolid 600 mg 04/10/25 09:00 04/10/25 20:30 Linezolid 600 Mg Tablet PO 600 mg Q12HR [facility] Administration Metoprolol Succinate 50 mg 04/09/25 23:50 04/11/25 03:53 Metoprolol Succinate Ext Rel 50 Mg Tabcr PO Not Given BID [facility] Midodrine 10 mg 04/10/25 09:00 04/10/25 17:25 Midodrine Hcl 10 Mg Tablet PO 10 mg TID [facility] Administration Nonformulary 1 each 04/10/25 09:00 04/10/25 08:49 Nutritional XX 04/11/25 08:59 Not Given Supplement - Vitamin DAILY [facility] [id number] Acid 0.5- 1 Mg Tablet Ondansetron HCl 4 mg 04/09/25 23:50 04/10/25 03:06 Ondansetron Inj 4 Mg/2 Ml Vial IV PUSH 4 mg Q6H PRN Administration Nausea And Vomiting Fluticasone/Salmeterol 2 puff 04/10/25 08:00 04/10/25 20:24 Fluticasone/Salmeterol 115-21 Mcg Inhaler 1 Puff INHALATION 2 puff Q12HRT BANG Administration Tamsulosin HCl 0.8 mg 04/10/25 09:00 04/10/25 08:48 Tamsulosin Hcl 0.4 Mg Capsule PO 0.8 mg QAM BANG Administration Vitamin D 50 mcg 04/10/25 09:00 04/10/25 08:48 Cholecalciferol (Vitamin D3) 25 Mcg (1,000 Units) Tablet PO 50 mcg DAILY BANG Administration Radiology Results: ITS Impressions Abdomen/Pelvis CT 04/09/25 19:36 IMPRESSION: 1. Moderate emphysema with bronchial wall thickening and superimposed smooth septal line thickening and groundglass opacities in the bilateral lower lungs most likely pulmonary edema although differential would include pneumonia. 2. Moderate-sized left and small right pleural effusions. 3. Mild right hydronephrosis with bilateral intraureteral stents in expected position and Myers catheter in the decompressed bladder. There is some urothelial enhancement at the right renal pelvis which raises concern for ascending urinary tract infection and would correlate with urinalysis. Quality VTE Prophylaxis VTE prophylaxis: mechanical ordered (SCDs)
[2025-04-11] MEDS: ONDANSETRON INJ 4 MG/2 ML VIAL IV PUSH (08:16)
[2025-04-11] MEDS: FLUTICASONE/SALMETEROL 115-21 MCG INHALER 1 PUFF 2 PUFF INHALATION ×2 (08:41→20:16)
[2025-04-11 09:00] LABS: Digoxin 1.2 ng/mL (0.8-2.0)
[2025-04-11] MEDS: CHOLECALCIFEROL (VITAMIN D3) 25 MCG (1,000 UNITS) TABLET 50 MCG PO (09:04)
[2025-04-11] MEDS: ASPIRIN 325 MG ENTERIC TABLET PO (09:04)
[2025-04-11] MEDS: TAMSULOSIN HCL 0.4 MG CAPSULE 0.8 MG PO (09:04)
[2025-04-11] MEDS: METOPROLOL SUCCINATE EXT REL 50 MG TABCR PO ×2 (09:04→17:22)
[2025-04-11] MEDS: LINEZOLID 600 MG TABLET PO ×2 (09:05→20:20)
[2025-04-11] MEDS: MIDODRINE HCL 10 MG TABLET PO ×3 (09:05→17:22)
[2025-04-11] MEDS: ATORVASTATIN 40 MG TABLET PO (09:05)
[2025-04-11] MEDS: DIGOXIN TAB 125 MCG TABLET PO ×2 (09:05→17:22)
[2025-04-11 09:07] LABS: Hematocrit 31.5 % (42.0-52.0); Hemoglobin 10.2 g/dL (14.0-18.0); Mean Corpuscular HGB Conc 32.4 g/dl (32-36); Mean Corpuscular Hemoglobin 33.9 pg (26-34); Mean Corpuscular Volume 104.7 fl (80-100); Platelet Count Result 162 k/mm3 (150-375); Red Blood Count 3.01 M/mm3 (4.6-6.20); White Blood Count 6.2 K/mm3 (4.5-10.0)
[2025-04-11 09:16] LABS: Alanine Aminotransferase 23 U/L (6-50); Albumin Level 2.5 g/dL (3.5-5.1); Alkaline Phosphatase 89 U/L (38-126); Anion Gap 6 mmol/L (4-12); Aspartate Amino Transferase 26 U/L (17-59); Bilirubin,Total 0.4 mg/dL (0.2-1.3); Blood Urea Nitrogen 23 mg/dL (9-20); Calcium 8.2 mg/dL (8.4-10.2); Carbon Dioxide 21 mmol/L (22-30); Chloride 108 mmol/L (98-107); Estimated CRCL calculation 47 ml/min; Estimated Glomerular Filt Rate 44; Glucose 119 mg/dL (65-110); Potassium 3.9 mmol/L (3.4-5.0); Sodium 135 mmol/L (137-145); Total Protein 6.3 g/dL (6.3-8.2)
[2025-04-12] VITALS (17 sets, daily range): BP systolic 97–105; BP diastolic 48–86; PULSE 77–112; RESP 16–20; TEMP 36.4–36.8; O2SAT 90–92
[2025-04-12 05:18] LABS: Hematocrit 28.6 % (42.0-52.0); Hemoglobin 9.2 g/dL (14.0-18.0); Mean Corpuscular HGB Conc 32.2 g/dl (32-36); Mean Corpuscular Hemoglobin 33.7 pg (26-34); Mean Corpuscular Volume 104.8 fl (80-100); Platelet Count Result 152 k/mm3 (150-375); Red Blood Count 2.73 M/mm3 (4.6-6.20); White Blood Count 5.6 K/mm3 (4.5-10.0)
[2025-04-12 05:35] LABS: Alanine Aminotransferase 17 U/L (6-50); Albumin Level 2.2 g/dL (3.5-5.1); Alkaline Phosphatase 84 U/L (38-126); Anion Gap 3 mmol/L (4-12); Aspartate Amino Transferase 22 U/L (17-59); Bilirubin,Total 0.4 mg/dL (0.2-1.3); Blood Urea Nitrogen 23 mg/dL (9-20); Calcium 7.8 mg/dL (8.4-10.2); Carbon Dioxide 23 mmol/L (22-30); Chloride 107 mmol/L (98-107); Estimated CRCL calculation 50 ml/min; Estimated Glomerular Filt Rate 49; Glucose 98 mg/dL (65-110); Potassium 4.1 mmol/L (3.4-5.0); Sodium 133 mmol/L (137-145); Total Protein 5.3 g/dL (6.3-8.2)
[2025-04-12] MEDS: FLUTICASONE/SALMETEROL 115-21 MCG INHALER 1 PUFF 2 PUFF INHALATION ×2 (07:48→20:05)
--- NOTE | 2025-04-12 08:15 | PM.IMPN ---
Progress Note: A&P Assessment and Plan (1) Atrial fibrillation with RVR: Code(s): I48.91 - Unspecified atrial fibrillation Status: Acute Assessment and Plan: Patient presents with AFib RVR and low blood pressures from outpatient Oncology Services EKG: Atrial fibrillation rate 98 normal QT C4 37 low-voltage QRS extremity leads moderate ST depression in limb leads. Patient is not on chronic anticoagulation due to chads Vasc score of 0 -continue telemetry. - cardiology was consulted: Chronic. [id number] 1. On aspirin. Rate controlled with Digoxin, Metoprolol and Diltiazem. Rate is OK right now at 90 bpm, BP is at 85 SBP. Nurse just gave Midodrine, apparently he was not discharged on this medication. Will start Midodrine 10 mg PO TID to support BP. Rate control to be continued with Digoxin 125 mcg BID, Metoprolol Succinate 50 mg BID, Diltiazem 30 mg BID 04/11 hr stable pt still hypotensive-weak but denies dizziness or any other symptoms-cardiology following continue midodrine 04/12- bp slightly better pt is high fall risk continue regimen recommended per cardiology (2) Pyelonephritis: Code(s): N12 - Tubulo-interstitial nephritis, not specified as acute or chronic Status: Acute Assessment and Plan: Abdomen/Pelvis CT 04/09/25 19:36 IMPRESSION: 1. Moderate emphysema with bronchial wall thickening and superimposed smooth septal line thickening and groundglass opacities in the bilateral lower lungs most likely pulmonary edema although differential would include pneumonia. 2. Moderate-sized left and small right pleural effusions. 3. Mild right hydronephrosis with bilateral intraureteral stents in expected position and Myers catheter in the decompressed bladder. There is some urothelial enhancement at the right renal pelvis which raises concern for ascending urinary tract infection and would correlate with urinalysis. -urology consulted - of note- pt's most recent urine culture grew out VRE that is resistant to everything except for nitrofurantoin. The Infectious Disease precision instrument maker during his last hospitalization recommended that the patient be discharged on linezolid. Will continue linezolid at this point and await repeat culture results. ID consulted for further recommendations urology was consulted: 04/10: High-grade non metastatic muscle invasive bladder cancer being managed with chemoradiation. Ureteral obstruction managed with chronic indwelling ureteral stents which were due to be changed. Patient admitted with, what appears to be, right pyelonephritis. ID consult id and currently treating with linezolid pending culture results Patient is scheduled for another attempt ureteral stent exchange next , 04/15/25. Will keep those plans an as is currently. 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: Code(s): Z86.19 - Personal history of other infectious and parasitic diseases Status: Acute Assessment and Plan: ID consulted continue linezolid for now-culture pending (5) CKD (chronic kidney disease) stage 3, GFR 30-59 ml/min: Qualifiers: Chronic kidney disease stage 3 subtype: stage 3a (GFR 45-59) Qualified Code(s): N18.31 - Chronic kidney disease, stage 3a Code(s): N18.30 - Chronic kidney disease, stage 3 unspecified Status: Acute (6) Severe protein-calorie malnutrition: Code(s): E43 - Unspecified severe protein-calorie malnutrition Status: Acute Assessment and Plan: dietitian consult ordered prior for nutritional supplement recommendations. Plan In the ER he received 1 L fluid bolus and 1 dose of midodrine with improvement in his blood pressures. The patient's blood pressures also did respond to IV fluids I gave an additional 1 L of IV fluids at 100 mL an hour besides the bolus the patient her a received in the ER. Since bp improved- his cardiac meds were reordered per admitting provider including beta-mary ann, digoxin and Cardizem. His heart rate did improve and his blood pressures did remain stable. - He does have bilateral pleural effusions but does appear intervascular volume depleted with tacky mucous membranes no evidence of JVD and only trace pedal edema. -monitor fluid status closely and continue cardiac medication. - PT/OT ordered 04/12 low appetite, decreased oral intake will add IV gentle hydration x 1 bag monitor closely Time Spent With Patient Time with patient: Greater than 35 minutes Subjective Date/time seen: 04/12/25 08:15 Interval history: Retrieved from H/P: 69-year-old unfortunate male with a past medical history of emphysema, rheumatoid arthritis, relatively recent diagnosis within the year of atrial fibrillation, chronic kidney disease stage 3, BPH, and recent diagnosis stage II high-grade invasive urothelial carcinoma status post TURBT 12/2024 who presented to the ER from [facility] due to low blood pressures. The patient reports that he was went to the [facility] to receive his chemotherapy. According to the Oncology notes it looks like the patient is receiving adjunctive chemotherapy with cisplatin and Gemzar. He is also receiving radiation therapy. He reports that he has been having some lightheadedness with position changes. He denies any recent syncope or falls. He denies any fevers but has been feeling chilled. He denies any diarrhea or changes in bowel habits. He has a chronic low appetite and has lost about 10 kg since his cancer diagnosis in November. He reports that his urine is a light [place] colored red. He has not noticed any increased sediment or purulence. He did develop acute worsening right flank pain prior to coming to the ER. He has been having some mild nausea but no vomiting. He was in AFib in the ER initially but was not in AFib RVR. However bedtime arrived to the medical floor he had went into AFib RVR but he had missed his evening doses of his cardiac meds due to his low blood pressure. Pt is seen and examined. He is resting in bed, reports chronic pain but nothing is acute now. Denies nausea/v/d. NO chest pain, no sob. 04/11- noted lower BP-card following. Pt is weak but alert and denies chest pain, palpitation, dizziness. Pt is taking midodrine. denies nausea.vomiting, no diarrhea. hypotensive, with elevated HR this morning- cardiology was notified and aware. 04/12 - URINE culture still pending. pt is very weak and gets sob with any exertions. Once he settles- it gets better - denies chest pain. Review of Systems Review of Systems: 12 systems were reviewed with pertinent positives and negatives per HPI. Except as documented in the HPI, all other systems were reviewed and are negative. Exam Narrative: Weight 81.2 kg BMI 23.6 Const: Other: Chronically ill-appearing, cachectic, appears older than stated age HENMT: Other: Mucous membranes are tacky, no oral pharyngeal erythema, edentulous in upper and lower drawl, temporal wasting Eyes: Other: No scleral icterus, no conjunctival pallor, pupils are equal and reactive Neck: Other: No JVD, no lymphadenopathy Resp: Other: Clear to auscultation bilaterally, no increased work of breathing Cardio: Other: Irregularly irregular, mildly tachycardic, no murmur GI: Other: Soft, nontender, nondistended, positive bowel sounds : Other: [place] colored urine in Myers catheter bag urine is cloudy Skin: Other: Generalized pallor, non jaundice Neuro: Other: Alert orient x4, speech is clear, no facial asymmetry Extrem: Other: No clubbing, no cyanosis, trace edema bilateral lower extremities Psych: Other: Appropriate mood and affect, pleasant and cooperative, judgment and insight intact Objective Data Vital Signs Vital Signs: Vital Signs - 24 hr 04/11/25 08:41 04/11/25 08:41 04/11/25 09:04 Temperature Pulse Rate 97 97 101 H Respiratory Rate 20 20 Blood Pressure Pulse Oximetry 93 Oxygen Delivery Room Air Fraction of Inspired Oxygen 04/11/25 09:05 04/11/25 09:05 04/11/25 12:00 Temperature Pulse Rate 101 H 107 H Respiratory Rate Blood Pressure Pulse Oximetry Oxygen Delivery Room Air Fraction of Inspired Oxygen 04/11/25 14:00 04/11/25 16:00 04/11/25 17:22 Temperature 97.6 F Pulse Rate 95 75 96 Respiratory Rate 17 Blood Pressure 80/51 L Pulse Oximetry 90 Oxygen Delivery Fraction of Inspired Oxygen 04/11/25 17:22 04/11/25 19:29 04/11/25 20:00 Temperature 97.8 F Pulse Rate 96 66 88 Respiratory Rate 16 20 Blood Pressure 92/48 L Pulse Oximetry 91 92 Oxygen Delivery Room Air Fraction of Inspired Oxygen 21 04/11/25 20:00 04/11/25 20:18 04/11/25 20:19 Temperature Pulse Rate 78 88 88 Respiratory Rate 20 20 Blood Pressure Pulse Oximetry 92 Oxygen Delivery Room Air Fraction of Inspired Oxygen 04/12/25 00:00 04/12/25 04:00 04/12/25 04:56 Temperature 98.3 F Pulse Rate 83 91 85 Respiratory Rate 18 Blood Pressure 97/52 L Pulse Oximetry 90 Oxygen Delivery Fraction of Inspired Oxygen 04/12/25 07:48 04/12/25 07:52 Temperature Pulse Rate 94 94 Respiratory Rate 16 16 Blood Pressure Pulse Oximetry 91 Oxygen Delivery Room Air Fraction of Inspired Oxygen Intake/Output Intake/Output: Intake & Output 04/09/25 04/10/25 04/11/25 04/12/25 23:59 23:59 23:59 23:59 Intake Total 1050 1090 1484 250 Output Total 1050 1200 450 Balance 1050 40 284 -200 Meds/Results Medications: Active Medications Generic Name Dose Route Start Last Admin Trade Name Freq PRN Reason Stop Dose Admin Acetaminophen 1,000 mg 04/09/25 23:47 04/10/25 10:24 Acetaminophen 500 Mg Tablet PO 1,000 mg Q6H PRN Administration pain 1-3 or fever Aspirin 325 mg 04/10/25 09:00 04/11/25 09:04 Aspirin 325 Mg Enteric Tablet PO 325 mg DAILY BANG Administration Atorvastatin Calcium 40 mg 04/10/25 09:00 04/11/25 09:05 Atorvastatin 40 Mg Tablet PO 40 mg DAILY BANG Administration Digoxin 125 mcg 04/09/25 23:50 04/11/25 17:22 Digoxin Tab 125 Mcg Tablet PO 125 mcg BID BANG Administration Diltiazem HCl 30 mg 04/09/25 23:50 04/11/25 17:22 Diltiazem Hcl 30 Mg Tablet PO 30 mg BID BANG Administration Linezolid 600 mg 04/10/25 09:00 04/11/25 20:20 Linezolid 600 Mg Tablet PO 600 mg Q12HR BANG Administration Metoprolol Succinate 50 mg 04/09/25 23:50 04/11/25 17:22 Metoprolol Succinate Ext Rel 50 Mg Tabcr PO 50 mg BID BANG Administration Midodrine 10 mg 04/10/25 09:00 04/11/25 17:22 Midodrine Hcl 10 Mg Tablet PO 10 mg TID BANG Administration Ondansetron HCl 4 mg 04/09/25 23:50 04/11/25 08:16 Ondansetron Inj 4 Mg/2 Ml Vial IV PUSH 4 mg Q6H PRN Administration Nausea And Vomiting Fluticasone/Salmeterol 2 puff 04/10/25 08:00 04/12/25 07:48 Fluticasone/Salmeterol 115-21 Mcg Inhaler 1 Puff INHALATION 2 puff Q12HRT BANG Administration Tamsulosin HCl 0.8 mg 04/10/25 09:00 04/11/25 09:04 Tamsulosin Hcl 0.4 Mg Capsule PO 0.8 mg QAM BANG Administration Vitamin D 50 mcg 04/10/25 09:00 04/11/25 09:04 Cholecalciferol (Vitamin D3) 25 Mcg (1,000 Units) Tablet PO 50 mcg DAILY BANG Administration Radiology Results: ITS Impressions Abdomen/Pelvis CT 04/09/25 19:36 IMPRESSION: 1. Moderate emphysema with bronchial wall thickening and superimposed smooth septal line thickening and groundglass opacities in the bilateral lower lungs most likely pulmonary edema although differential would include pneumonia. 2. Moderate-sized left and small right pleural effusions. 3. Mild right hydronephrosis with bilateral intraureteral stents in expected position and Myers catheter in the decompressed bladder. There is some urothelial enhancement at the right renal pelvis which raises concern for ascending urinary tract infection and would correlate with urinalysis. Labs Labs: Laboratory Results - last 24 hr 04/11/25 04/12/25 08:41 04:49 WBC 6.2 5.6 RBC 3.01 L 2.73 L Hgb 10.2 L 9.2 L Hct 31.5 L 28.6 L MCV 104.7 H 104.8 H MCH 33.9 33.7 MCHC 32.4 32.2 RDW 15.3 H 15.2 H Plt Count 162 152 MPV 10.1 10.5 H Sodium 135 L 133 L Potassium 3.9 4.1 Chloride 108 H 107 Carbon Dioxide 21 L 23 Anion Gap 6 3 L BUN 23 H 23 H Creatinine 1.57 H 1.45 H Estim Creat Clear Calc 47 50 Estimated GFR 44 L 49 L Glucose 119 H 98 Calcium 8.2 L 7.8 L Total Bilirubin 0.4 0.4 AST 26 22 ALT 23 17 Alkaline Phosphatase 89 84 Total Protein 6.3 5.3 L Albumin 2.5 L 2.2 L Digoxin 1.2 Quality VTE Prophylaxis VTE prophylaxis: mechanical ordered (SCDs)
[2025-04-12] MEDS: ASPIRIN 325 MG ENTERIC TABLET PO (08:38)
[2025-04-12] MEDS: METOPROLOL SUCCINATE EXT REL 50 MG TABCR PO ×2 (08:38→16:31)
[2025-04-12] MEDS: CHOLECALCIFEROL (VITAMIN D3) 25 MCG (1,000 UNITS) TABLET 50 MCG PO (08:38)
[2025-04-12] MEDS: MIDODRINE HCL 10 MG TABLET PO ×3 (08:39→16:31)
[2025-04-12] MEDS: DIGOXIN TAB 125 MCG TABLET PO ×2 (08:39→16:32)
[2025-04-12] MEDS: LINEZOLID 600 MG TABLET PO ×2 (08:39→20:31)
[2025-04-12] MEDS: ATORVASTATIN 40 MG TABLET PO (08:39)
[2025-04-12] MEDS: TAMSULOSIN HCL 0.4 MG CAPSULE 0.8 MG PO (08:39)
--- NOTE | 2025-04-12 10:21 | PCOTNOTE ---
Attempted OT evaluation. Pt. refusing to get out of bed at this time. Pt.'s heart rate increased to 180 while working with PT so pt. just wants to rest. Will continue to follow as able.
[2025-04-12] MEDS: CENTRAL LINE FLUSH 10 ML IV PUSH ×2 (13:06→20:31)
[2025-04-12] MEDS: SODIUM CHLORIDE 0.9% IV 1,000 ML 100 ML IV CONT (16:32)
[2025-04-13] VITALS (16 sets, daily range): BP systolic 95–100; BP diastolic 50–67; PULSE 85–104; RESP 16–22; TEMP 36.3–37.1; O2SAT 86–95
[2025-04-13] MEDS: ACETAMINOPHEN 500 MG TABLET 1000 MG PO (05:17)
[2025-04-13] MEDS: CENTRAL LINE FLUSH 10 ML IV PUSH ×3 (05:18→20:21)
[2025-04-13 05:28] LABS: Hematocrit 26.4 % (42.0-52.0); Hemoglobin 8.5 g/dL (14.0-18.0); Mean Corpuscular HGB Conc 32.2 g/dl (32-36); Mean Corpuscular Hemoglobin 33.6 pg (26-34); Mean Corpuscular Volume 104.3 fl (80-100); Platelet Count Result 128 k/mm3 (150-375); Red Blood Count 2.53 M/mm3 (4.6-6.20); White Blood Count 5.7 K/mm3 (4.5-10.0)
[2025-04-13 05:57] LABS: Alanine Aminotransferase 11 U/L (6-50); Albumin Level 1.4 g/dL (3.5-5.1); Alkaline Phosphatase 60 U/L (38-126); Anion Gap 2 mmol/L (4-12); Aspartate Amino Transferase 14 U/L (17-59); Bilirubin,Total < 0.1 mg/dL (0.2-1.3); Blood Urea Nitrogen 19 mg/dL (9-20); Calcium 5.5 mg/dL (8.4-10.2); Carbon Dioxide 16 mmol/L (22-30); Chloride 117 mmol/L (98-107); Estimated CRCL calculation 74 ml/min; Estimated Glomerular Filt Rate > 60; Glucose 67 mg/dL (65-110); Potassium 3.1 mmol/L (3.4-5.0); Sodium 135 mmol/L (137-145); Total Protein 3.9 g/dL (6.3-8.2)
--- NOTE | 2025-04-13 06:46 | P.CDI_ITS ---
CDI Query Clarification Request BMI: 24.5 Nutritional Diagnostic Statement: Please refer to the comprehensive nutrition assessment for further information. If you agree with diagnosis of Moderate protein calorie malnutrition related to inadequate energy intake as evidenced by a significant weight loss of -10% x 4 months, decreased po intake for greater than 1 month, and NFPE findings for severe subcutaneous fat loss and severe muscle wasting. Please specify severity if known: * Mild * Moderate * Severe * Other/Unknown <Zahira Meade RN - Last Filed: 04/13/25 06:46> Provider Comments moderate <Claudia Laguna APRN - Last Filed: 04/13/25 07:06>
[2025-04-13 07:02] LABS: Alanine Aminotransferase 16 U/L (6-50); Albumin Level 2.1 g/dL (3.5-5.1); Alkaline Phosphatase 78 U/L (38-126); Anion Gap 3 mmol/L (4-12); Aspartate Amino Transferase 19 U/L (17-59); Bilirubin,Total 0.3 mg/dL (0.2-1.3); Blood Urea Nitrogen 24 mg/dL (9-20); Calcium 7.6 mg/dL (8.4-10.2); Carbon Dioxide 21 mmol/L (22-30); Chloride 107 mmol/L (98-107); Estimated CRCL calculation 52 ml/min; Estimated Glomerular Filt Rate 51; Glucose 90 mg/dL (65-110); Potassium 4.2 mmol/L (3.4-5.0); Sodium 131 mmol/L (137-145); Total Protein 5.2 g/dL (6.3-8.2)
[2025-04-13] MEDS: FLUTICASONE/SALMETEROL 115-21 MCG INHALER 1 PUFF 2 PUFF INHALATION ×2 (07:41→20:03)
--- NOTE | 2025-04-13 07:55 | P.PNUR_ITS ---
Progress Note: A&P Assessment and Plan (1) Obstructive uropathy: Code(s): N13.9 - Obstructive and reflux uropathy, unspecified Status: Acute (2) Bladder cancer: Code(s): C67.9 - Malignant neoplasm of bladder, unspecified Status: Acute Assessment and Plan: * Patient currently scheduled for cystoscopy with bilateral ureteral stent exchange on 04/15/2025. We have had to cancel this on occasion in the past due to complicating medical issues. * It may be best to keep him admitted until we can get that procedure done on Subjective Subjective Date/Time Seen: 04/13/25 07:55 Interval history: Progress noted, no complaints Review of Systems Review of Systems: All systems reviewed & are unremarkable except as noted in HPI and below Exam Const: General: no acute distress Resp: Effort & Inspection: normal respiratory effort GI: Inspection: non-distended GI Palp: No abdominal tenderness and No Guarding due to palpation present (GI) Auscultation: normal bowel sounds Objective Data Vital Signs Vital Signs: Vital Signs - 24 hr 04/12/25 08:00 04/12/25 08:38 04/12/25 08:39 Temperature Pulse Rate 91 86 86 Respiratory Rate Blood Pressure Pulse Oximetry Oxygen Delivery Oxygen Flow Rate Fraction of Inspired Oxygen 04/12/25 12:00 04/12/25 14:00 04/12/25 16:00 Temperature 97.5 F L Pulse Rate 103 H 82 77 Respiratory Rate 18 Blood Pressure 105/86 Pulse Oximetry 91 Oxygen Delivery Oxygen Flow Rate Fraction of Inspired Oxygen 04/12/25 16:31 04/12/25 16:32 04/12/25 19:40 Temperature 97.8 F Pulse Rate 82 82 112 H Respiratory Rate 20 Blood Pressure 100/48 L Pulse Oximetry 91 Oxygen Delivery Oxygen Flow Rate Fraction of Inspired Oxygen 04/12/25 20:00 04/12/25 20:06 04/12/25 20:09 Temperature Pulse Rate 83 92 92 Respiratory Rate Blood Pressure Pulse Oximetry 92 Oxygen Delivery Room Air Oxygen Flow Rate Fraction of Inspired Oxygen 04/12/25 20:15 04/13/25 00:00 04/13/25 03:32 Temperature 97.6 F Pulse Rate 86 104 H Respiratory Rate 18 Blood Pressure 100/58 L Pulse Oximetry 91 Oxygen Delivery Room Air Oxygen Flow Rate Fraction of Inspired Oxygen 04/13/25 04:00 04/13/25 07:42 04/13/25 07:45 Temperature Pulse Rate 89 100 Respiratory Rate 18 Blood Pressure Pulse Oximetry 86 L Oxygen Delivery Room Air Oxygen Flow Rate Fraction of Inspired Oxygen 04/13/25 07:51 Temperature Pulse Rate Respiratory Rate Blood Pressure Pulse Oximetry 91 Oxygen Delivery Nasal Cannula Oxygen Flow Rate 1 Fraction of Inspired Oxygen 24 Intake/Output Intake/Output: Intake & Output 04/10/25 04/11/25 04/12/25 04/13/25 23:59 23:59 23:59 23:59 Intake Total 1090 8859 950 2092 Output Total 1050 2365 876 8793 Balance 40 284 -300 690 Meds/Results Medications: Active Medications Generic Name Dose Route Start Last Admin Trade Name Freq PRN Reason Stop Dose Admin Acetaminophen 1,000 mg 04/09/25 23:47 04/13/25 05:17 Acetaminophen 500 Mg Tablet PO 1,000 mg Q6H PRN Administration pain 1-3 or fever Aspirin 325 mg 04/10/25 09:00 04/12/25 08:38 Aspirin 325 Mg Enteric Tablet PO 325 mg DAILY BANG Administration Atorvastatin Calcium 40 mg 04/10/25 09:00 04/12/25 08:39 Atorvastatin 40 Mg Tablet PO 40 mg DAILY BANG Administration Digoxin 125 mcg 04/09/25 23:50 04/12/25 16:32 Digoxin Tab 125 Mcg Tablet PO 125 mcg BID BANG Administration Diltiazem HCl 30 mg 04/09/25 23:50 04/12/25 16:31 Diltiazem Hcl 30 Mg Tablet PO 30 mg BID BANG Administration Heparin Sodium (Beef Lung) 50 units 04/12/25 09:00 04/12/25 08:49 Heparin Flush 50 Units/5 Ml Syringe IV PUSH 50 units QAM BANG Administration Heparin Sodium (Beef Lung) 50 units 04/12/25 08:44 Heparin Flush 50 Units/5 Ml Syringe IV PUSH PRN PRN after intermittent infusion Heparin Sodium (Beef Lung) 50 units 04/12/25 08:44 04/13/25 06:28 Heparin Flush 50 Units/5 Ml Syringe IV PUSH 50 units PRN PRN Administration after blood draws Heparin Sodium (Porcine) 500 units 04/12/25 08:44 Heparin Sodium Lock Flush 500 Units/5 Ml Syringe IV PUSH PRN PRN see comments below Linezolid 600 mg 04/10/25 09:00 04/12/25 20:31 Linezolid 600 Mg Tablet PO 600 mg Q12HR BANG Administration Metoprolol Succinate 50 mg 04/09/25 23:50 04/12/25 16:31 Metoprolol Succinate Ext Rel 50 Mg Tabcr PO 50 mg BID BANG Administration Midodrine 10 mg 04/10/25 09:00 04/12/25 16:31 Midodrine Hcl 10 Mg Tablet PO 10 mg TID BANG Administration Ondansetron HCl 4 mg 04/09/25 23:50 04/11/25 08:16 Ondansetron Inj 4 Mg/2 Ml Vial IV PUSH 4 mg Q6H PRN Administration Nausea And Vomiting Fluticasone/Salmeterol 2 puff 04/10/25 08:00 04/13/25 07:41 Fluticasone/Salmeterol 115-21 Mcg Inhaler 1 Puff INHALATION 2 puff Q12HRT BANG Administration Sodium Chloride 10 ml 04/12/25 14:00 04/13/25 05:18 Central Line Flush IV PUSH 10 ml Q8HR BANG Administration Tamsulosin HCl 0.8 mg 04/10/25 09:00 04/12/25 08:39 Tamsulosin Hcl 0.4 Mg Capsule PO 0.8 mg QAM BANG Administration Vitamin D 50 mcg 04/10/25 09:00 04/12/25 08:38 Cholecalciferol (Vitamin D3) 25 Mcg (1,000 Units) Tablet PO 50 mcg DAILY BANG Administration Radiology Results: ITS Impressions Abdomen/Pelvis CT 04/09/25 19:36 IMPRESSION: 1. Moderate emphysema with bronchial wall thickening and superimposed smooth septal line thickening and groundglass opacities in the bilateral lower lungs most likely pulmonary edema although differential would include pneumonia. 2. Moderate-sized left and small right pleural effusions. 3. Mild right hydronephrosis with bilateral intraureteral stents in expected position and Myers catheter in the decompressed bladder. There is some urothelial enhancement at the right renal pelvis which raises concern for ascending urinary tract infection and would correlate with urinalysis. Labs Labs: Laboratory Results - last 24 hr 04/13/25 04/13/25 05:10 06:26 WBC 5.7 RBC 2.53 L Hgb 8.5 L Hct 26.4 L MCV 104.3 H MCH 33.6 MCHC 32.2 RDW 15.1 H Plt Count 128 L MPV 10.5 H Sodium 135 L 131 L Potassium 3.1 L 4.2 Chloride 117 H 107 Carbon Dioxide 16 L 21 L Anion Gap 2 L 3 L BUN 19 24 H Creatinine 0.97 1.39 H Estim Creat Clear Calc 74 52 Estimated GFR > 60 51 L Glucose 67 90 Calcium 5.5 L* 7.6 L Total Bilirubin < 0.1 L 0.3 AST 14 L 19 ALT 11 16 Alkaline Phosphatase 60 78 Total Protein 3.9 L 5.2 L Albumin 1.4 L 2.1 L
[2025-04-13] MEDS: ATORVASTATIN 40 MG TABLET PO (08:03)
[2025-04-13] MEDS: CHOLECALCIFEROL (VITAMIN D3) 25 MCG (1,000 UNITS) TABLET 50 MCG PO (08:03)
[2025-04-13] MEDS: ASPIRIN 325 MG ENTERIC TABLET PO (08:03)
[2025-04-13] MEDS: MIDODRINE HCL 10 MG TABLET PO ×3 (08:04→16:15)
[2025-04-13] MEDS: DIGOXIN TAB 125 MCG TABLET PO ×2 (08:04→16:16)
[2025-04-13] MEDS: TAMSULOSIN HCL 0.4 MG CAPSULE 0.8 MG PO (08:04)
[2025-04-13] MEDS: METOPROLOL SUCCINATE EXT REL 50 MG TABCR PO ×2 (08:04→16:15)
[2025-04-13] MEDS: LINEZOLID 600 MG TABLET PO ×2 (08:04→20:17)
--- NOTE | 2025-04-13 12:28 | P.PNIM_ITS ---
Progress Note: A&P Assessment and Plan (1) Atrial fibrillation with RVR: Code(s): I48.91 - Unspecified atrial fibrillation Status: Acute Assessment and Plan: Patient presents with AFib RVR and low blood pressures from outpatient Oncology Services EKG: Atrial fibrillation rate 98 normal QT C4 37 low-voltage QRS extremity leads moderate ST depression in limb leads. Patient is not on chronic anticoagulation due to chads Vasc score of 0 -continue telemetry. - cardiology was consulted: Chronic. [id number] 1. On aspirin. Rate controlled with Digoxin, Metoprolol and Diltiazem. Rate is OK right now at 90 bpm, BP is at 85 SBP. Nurse just gave Midodrine, apparently he was not discharged on this medication. Will start Midodrine 10 mg PO TID to support BP. Rate control to be continued with Digoxin 125 mcg BID, Metoprolol Succinate 50 mg BID, Diltiazem 30 mg BID ------- 04/11 hr stable pt still hypotensive-weak but denies dizziness or any other symptoms-cardiology following continue midodrine 04/12- bp slightly better pt is high fall risk continue regimen recommended per cardiology 04/13 remains stable- no hr elevation (2) Pyelonephritis: Code(s): N12 - Tubulo-interstitial nephritis, not specified as acute or chronic Status: Acute Assessment and Plan: Abdomen/Pelvis CT 04/09/25 19:36 IMPRESSION: 1. Moderate emphysema with bronchial wall thickening and superimposed smooth septal line thickening and groundglass opacities in the bilateral lower lungs most likely pulmonary edema although differential would include pneumonia. 2. Moderate-sized left and small right pleural effusions. 3. Mild right hydronephrosis with bilateral intraureteral stents in expected position and Myers catheter in the decompressed bladder. There is some urothelial enhancement at the right renal pelvis which raises concern for ascending urinary tract infection and would correlate with urinalysis. -urology consulted - of note- pt's most recent urine culture grew out VRE that is resistant to everything except for nitrofurantoin. The Infectious Disease instructional technology coordinator during his last hospitalization recommended that the patient be discharged on linezolid. Will continue linezolid at this point and await repeat culture results. ID consulted for further recommendations urology was consulted: 04/10: * High-grade non metastatic muscle invasive bladder cancer being managed with chemoradiation. Ureteral obstruction managed with chronic indwelling ureteral stents which were due to be changed. * Patient admitted with, what appears to be, right pyelonephritis. ID consult id and currently treating with linezolid pending culture results * Patient is scheduled for another attempt ureteral stent exchange next , 04/15/25. Will keep those plans an as is currently. 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: Code(s): Z86.19 - Personal history of other infectious and parasitic diseases Status: Acute Assessment and Plan: ID consulted continue linezolid for now-urine culture pending (5) CKD (chronic kidney disease) stage 3, GFR 30-59 ml/min: Qualifiers: Chronic kidney disease stage 3 subtype: stage 3a (GFR 45-59) Qualified Code(s): N18.31 - Chronic kidney disease, stage 3a Code(s): N18.30 - Chronic kidney disease, stage 3 unspecified Status: Acute (6) Severe protein-calorie malnutrition: Code(s): E43 - Unspecified severe protein-calorie malnutrition Status: Acute Assessment and Plan: dietitian consult ordered prior for nutritional supplement recommendations. Plan In the ER he received 1 L fluid bolus and 1 dose of midodrine with improvement in his blood pressures. The patient's blood pressures also did respond to IV fluids I gave an additional 1 L of IV fluids at 100 mL an hour besides the bolus the patient her a received in the ER. Since bp improved- his cardiac meds were reordered per admitting provider including beta-mary ann, digoxin and Cardizem. His heart rate did improve and his blood pressures did remain stable. - He does have bilateral pleural effusions but does appear intervascular volume depleted with tacky mucous membranes no evidence of JVD and only trace pedal edema. -monitor fluid status closely and continue cardiac medication. - PT/OT ordered 04/12 low appetite, decreased oral intake will add IV gentle hydration x 1 bag monitor closely 04/13- noted drop in hg but received fluids yesterday so could be hemodilution monitor closely Time Spent With Patient Time with patient: 25 - 35 minutes Subjective Date/time seen: 04/13/25 12:28 Interval history: still very weak. Was placed on 1l oxygen overnight for sob but feeling a lot better today, will try to wean. [place] fro cystoscopy on - very likely will be remain admitted here still as still waiting for urine culture and he is too weak to be discharged. Still hypotensive at time, cardiology following. Review of Systems Review of Systems: 12 systems were reviewed with pertinent positives and negatives per HPI. Except as documented in the HPI, all other systems were reviewed and are negative. Exam Narrative: Weight 81.2 kg BMI 23.6 Const: Other: Chronically ill-appearing, cachectic, appears older than stated age HENMT: Other: Mucous membranes are tacky, no oral pharyngeal erythema, edentulous in upper and lower drawl, temporal wasting Eyes: Other: No scleral icterus, no conjunctival pallor, pupils are equal and reactive Neck: Other: No JVD, no lymphadenopathy Resp: Other: Clear to auscultation bilaterally, no increased work of breathing Cardio: Other: Irregularly irregular, mildly tachycardic, no murmur GI: Other: Soft, nontender, nondistended, positive bowel sounds : Other: Willard colored urine in Myers catheter bag urine is cloudy Skin: Other: Generalized pallor, non jaundice Neuro: Other: Alert orient x4, speech is clear, no facial asymmetry Extrem: Other: No clubbing, no cyanosis, trace edema bilateral lower extremities Psych: Other: Appropriate mood and affect, pleasant and cooperative, judgment and insight intact Objective Data Vital Signs Vital Signs: Vital Signs - 24 hr 04/12/25 14:00 04/12/25 16:00 04/12/25 16:31 Temperature 97.5 F L Pulse Rate 82 77 82 Respiratory Rate 18 Blood Pressure 105/86 Pulse Oximetry 91 Oxygen Delivery Oxygen Flow Rate Fraction of Inspired Oxygen 04/12/25 16:32 04/12/25 19:40 04/12/25 20:00 Temperature 97.8 F Pulse Rate 82 112 H 83 Respiratory Rate 20 Blood Pressure 100/48 L Pulse Oximetry 91 Oxygen Delivery Oxygen Flow Rate Fraction of Inspired Oxygen 04/12/25 20:06 04/12/25 20:09 04/12/25 20:15 Temperature Pulse Rate 92 92 Respiratory Rate Blood Pressure Pulse Oximetry 92 Oxygen Delivery Room Air Room Air Oxygen Flow Rate Fraction of Inspired Oxygen 04/13/25 00:00 04/13/25 03:32 04/13/25 04:00 Temperature 97.6 F Pulse Rate 86 104 H 89 Respiratory Rate 18 Blood Pressure 100/58 L Pulse Oximetry 91 Oxygen Delivery Oxygen Flow Rate Fraction of Inspired Oxygen 04/13/25 07:42 04/13/25 07:45 04/13/25 07:51 Temperature Pulse Rate 100 Respiratory Rate 18 Blood Pressure Pulse Oximetry 86 L 91 Oxygen Delivery Room Air Nasal Cannula Oxygen Flow Rate 1 Fraction of Inspired Oxygen 24 04/13/25 08:01 04/13/25 08:04 04/13/25 08:04 Temperature 97.4 F L Pulse Rate 95 95 95 Respiratory Rate 16 Blood Pressure 98/67 L Pulse Oximetry 94 Oxygen Delivery Oxygen Flow Rate Fraction of Inspired Oxygen 04/13/25 08:04 04/13/25 08:04 Temperature Pulse Rate 95 88 Respiratory Rate 16 Blood Pressure Pulse Oximetry 94 Oxygen Delivery Nasal Cannula Oxygen Flow Rate 1 Fraction of Inspired Oxygen 24 Intake/Output Intake/Output: Intake & Output 04/10/25 04/11/25 04/12/25 04/13/25 23:59 23:59 23:59 23:59 Intake Total 1090 8634 881 1916 Output Total 1050 1726 156 5458 Balance 40 284 -300 930 Meds/Results Medications: Active Medications Generic Name Dose Route Start Last Admin Trade Name Freq PRN Reason Stop Dose Admin Acetaminophen 1,000 mg 04/09/25 23:47 04/13/25 05:17 Acetaminophen 500 Mg Tablet PO 1,000 mg Q6H PRN Administration pain 1-3 or fever Aspirin 325 mg 04/10/25 09:00 04/13/25 08:03 Aspirin 325 Mg Enteric Tablet PO 325 mg DAILY BANG Administration Atorvastatin Calcium 40 mg 04/10/25 09:00 04/13/25 08:03 Atorvastatin 40 Mg Tablet PO 40 mg DAILY BANG Administration Digoxin 125 mcg 04/09/25 23:50 04/13/25 08:04 Digoxin Tab 125 Mcg Tablet PO 125 mcg BID BANG Administration Diltiazem HCl 30 mg 04/09/25 23:50 04/13/25 08:04 Diltiazem Hcl 30 Mg Tablet PO 30 mg BID BANG Administration Heparin Sodium (Beef Lung) 50 units 04/12/25 09:00 04/13/25 08:05 Heparin Flush 50 Units/5 Ml Syringe IV PUSH 50 units QAM BANG Administration Heparin Sodium (Beef Lung) 50 units 04/12/25 08:44 Heparin Flush 50 Units/5 Ml Syringe IV PUSH PRN PRN after intermittent infusion Heparin Sodium (Beef Lung) 50 units 04/12/25 08:44 04/13/25 06:28 Heparin Flush 50 Units/5 Ml Syringe IV PUSH 50 units PRN PRN Administration after blood draws Heparin Sodium (Porcine) 500 units 04/12/25 08:44 Heparin Sodium Lock Flush 500 Units/5 Ml Syringe IV PUSH PRN PRN see comments below Linezolid 600 mg 04/10/25 09:00 04/13/25 08:04 Linezolid 600 Mg Tablet PO 600 mg Q12HR BANG Administration Metoprolol Succinate 50 mg 04/09/25 23:50 04/13/25 08:04 Metoprolol Succinate Ext Rel 50 Mg Tabcr PO 50 mg BID BANG Administration Midodrine 10 mg 04/10/25 09:00 04/13/25 12:04 Midodrine Hcl 10 Mg Tablet PO 10 mg TID BANG Administration Ondansetron HCl 4 mg 04/09/25 23:50 04/11/25 08:16 Ondansetron Inj 4 Mg/2 Ml Vial IV PUSH 4 mg Q6H PRN Administration Nausea And Vomiting Fluticasone/Salmeterol 2 puff 04/10/25 08:00 04/13/25 07:41 Fluticasone/Salmeterol 115-21 Mcg Inhaler 1 Puff INHALATION 2 puff Q12HRT BANG Administration Sodium Chloride 10 ml 04/12/25 14:00 04/13/25 05:18 Central Line Flush IV PUSH 10 ml Q8HR BANG Administration Tamsulosin HCl 0.8 mg 04/10/25 09:00 04/13/25 08:04 Tamsulosin Hcl 0.4 Mg Capsule PO 0.8 mg QAM BANG Administration Vitamin D 50 mcg 04/10/25 09:00 04/13/25 08:03 Cholecalciferol (Vitamin D3) 25 Mcg (1,000 Units) Tablet PO 50 mcg DAILY BANG Administration Radiology Results: ITS Impressions Abdomen/Pelvis CT 04/09/25 19:36 IMPRESSION: 1. Moderate emphysema with bronchial wall thickening and superimposed smooth septal line thickening and groundglass opacities in the bilateral lower lungs most likely pulmonary edema although differential would include pneumonia. 2. Moderate-sized left and small right pleural effusions. 3. Mild right hydronephrosis with bilateral intraureteral stents in expected position and Myers catheter in the decompressed bladder. There is some urothelial enhancement at the right renal pelvis which raises concern for ascending urinary tract infection and would correlate with urinalysis. Labs Labs: Laboratory Results - last 24 hr 04/13/25 04/13/25 05:10 06:26 WBC 5.7 RBC 2.53 L Hgb 8.5 L Hct 26.4 L MCV 104.3 H MCH 33.6 MCHC 32.2 RDW 15.1 H Plt Count 128 L MPV 10.5 H Sodium 135 L 131 L Potassium 3.1 L 4.2 Chloride 117 H 107 Carbon Dioxide 16 L 21 L Anion Gap 2 L 3 L BUN 19 24 H Creatinine 0.97 1.39 H Estim Creat Clear Calc 74 52 Estimated GFR > 60 51 L Glucose 67 90 Calcium 5.5 L* 7.6 L Total Bilirubin < 0.1 L 0.3 AST 14 L 19 ALT 11 16 Alkaline Phosphatase 60 78 Total Protein 3.9 L 5.2 L Albumin 1.4 L 2.1 L Quality VTE Prophylaxis VTE prophylaxis: mechanical ordered (SCDs)
[2025-04-13] MEDS: ONDANSETRON INJ 4 MG/2 ML VIAL IV PUSH (16:17)
[2025-04-14] VITALS (18 sets, daily range): BP systolic 82–112; BP diastolic 44–66; PULSE 67–102; RESP 16–18; TEMP 36.4–36.7; O2SAT 90–95
[2025-04-14] MEDS: ACETAMINOPHEN 500 MG TABLET 1000 MG PO (05:05)
[2025-04-14] MEDS: CENTRAL LINE FLUSH 10 ML IV PUSH ×3 (05:06→21:04)
[2025-04-14 06:06] LABS: Hematocrit 26.8 % (42.0-52.0); Hemoglobin 8.7 g/dL (14.0-18.0); Mean Corpuscular HGB Conc 32.5 g/dl (32-36); Mean Corpuscular Hemoglobin 33.6 pg (26-34); Mean Corpuscular Volume 103.5 fl (80-100); Platelet Count Result 134 k/mm3 (150-375); Red Blood Count 2.59 M/mm3 (4.6-6.20); White Blood Count 6.4 K/mm3 (4.5-10.0)
[2025-04-14 06:35] LABS: Alanine Aminotransferase 16 U/L (6-50); Albumin Level 2.2 g/dL (3.5-5.1); Alkaline Phosphatase 87 U/L (38-126); Anion Gap 3 mmol/L (4-12); Aspartate Amino Transferase 21 U/L (17-59); Bilirubin,Total 0.4 mg/dL (0.2-1.3); Blood Urea Nitrogen 25 mg/dL (9-20); Calcium 8.0 mg/dL (8.4-10.2); Carbon Dioxide 21 mmol/L (22-30); Chloride 107 mmol/L (98-107); Estimated CRCL calculation 50 ml/min; Estimated Glomerular Filt Rate 48; Glucose 93 mg/dL (65-110); Potassium 4.3 mmol/L (3.4-5.0); Sodium 131 mmol/L (137-145); Total Protein 5.4 g/dL (6.3-8.2)
--- NOTE | 2025-04-14 07:08 | P.PNIM_ITS ---
Progress Note: A&P Assessment and Plan (1) Acute respiratory failure with hypoxia: Code(s): J96.01 - Acute respiratory failure with hypoxia Status: Acute Assessment and Plan: - Chest CTA: No pulmonary embolism. Small right and moderate to large left pleural effusions with likely secondary partial collapse of the left lower lobe. Moderate emphysema superimposed mild pulmonary edema. Enlarged from prior CTA from 03/25 - Oxygen supplementation: 1L NC, wean as tolerated to maintain spo2 > 90 - Suspected cause: pleural effusion - see plan below #2 (2) Pleural effusion: Code(s): J90 - Pleural effusion, not elsewhere classified Status: Acute Assessment and Plan: - Symptoms: hypoxia requiring 1L NC with noted tachycardia - Chest CTA: No pulmonary embolism. Small right and moderate to large left pleural effusions with likely secondary partial collapse of the left lower lobe. Moderate emphysema superimposed mild pulmonary edema. Enlarged from prior CTA from 03/25 - Echo ordered Echo from 12/03/24 showed normal EF with severely enlarged bilateral atria with mild pulmonary htn - thoracentesis ordered Afebrile, WBC WNL and denies a cough, will continue to hold antibiotics pending thoracentesis Patient has history of cancer, possible metastasis although no nodules or masses noted on imaging Will obtain echo to also evaluate for cardiac involvement of the effusion - Monitor vital signs, I&Os, BUN/creatinine, daily weights, neuro status and patient is a fall risk - Monitor serum electrolytes, Keep serum Potassium>4 and serum Magnesium>2 and CBC (3) Atrial fibrillation with RVR: Code(s): I48.91 - Unspecified atrial fibrillation Status: Acute Assessment and Plan: - Likely cause for RVR is acute infection of pyelonephritis - EKG: Atrial fibrillation rate 98 normal QT C4 37 low-voltage QRS extremity leads moderate ST depression in limb leads. - Chadsvasc Score: 1 per cardiology Anticoagulation: Aspirin - Echo 12/03/24: LVEF 55-60% with severely enlarged bilateral atria and mild pulmonary hypertension - Telemetry - Cardiology consulted Rate is OK right now at 90 bpm, BP is at 85 SBP. Will start Midodrine 10 mg PO TID to support BP. Rate control to be continued with Digoxin 125 mcg BID, Metoprolol Succinate 50 mg BID, Diltiazem 30 mg BID No further cardiac workup, please call with any questions. (4) Pyelonephritis: Code(s): N12 - Tubulo-interstitial nephritis, not specified as acute or chronic Status: Acute Assessment and Plan: Abdomen/Pelvis CT 04/09/25 19:36 Mild right hydronephrosis with bilateral intraureteral stents in expected position and Myers catheter in the decompressed bladder. There is some urothelial enhancement at the right renal pelvis which raises concern for ascending urinary tract infection and would correlate with urinalysis. - UA: red with 3+ protein, trace ketones, 3+ blood, negative nitrates, 1+ bili, 1+ leukocytes, > 100 RBC, 21-30 WBC - blood culture obtained on 04/09: NGTD - UC obtained on 04/09: final - negative - previous micro reviewed 03/25/25: VRE - started on linezolid given prior VRE on 03/25/25 Per chart review: most recent urine culture grew out VRE that is resistant to everything except for nitrofurantoin. The Infectious Disease head sulfide operator during his last hospitalization recommended that the patient be discharged on linezolid. -urology consulted * High-grade non metastatic muscle invasive bladder cancer being managed with chemoradiation. Ureteral obstruction managed with chronic indwelling ureteral stents which were due to be changed. * Patient admitted with, what appears to be, right pyelonephritis. * Patient is scheduled for another attempt ureteral stent exchange next , 04/15/25. Will keep those plans an as is currently. (5) Chronic indwelling Myers catheter: Code(s): Z97.8 - Presence of other specified devices Status: Acute (6) CKD (chronic kidney disease) stage 3, GFR 30-59 ml/min: Qualifiers: Chronic kidney disease stage 3 subtype: stage 3a (GFR 45-59) Qualified Code(s): N18.31 - Chronic kidney disease, stage 3a Code(s): N18.30 - Chronic kidney disease, stage 3 unspecified Status: Acute Assessment and Plan: Chronic, renal function appears at baseline - avoid nephrotoxic medications - renally dose medications - monitor I/O - continue to monitor renal function (7) Severe protein-calorie malnutrition: Code(s): E43 - Unspecified severe protein-calorie malnutrition Status: Acute Assessment and Plan: dietitian consult ordered prior for nutritional supplement recommendations. Time Spent With Patient Time with patient: 25 - 35 minutes Subjective Date/time seen: 04/14/25 07:08 Interval history: 69-year-old male with a past medical history of emphysema, rheumatoid arthritis, relatively recent diagnosis within the year of atrial fibrillation, chronic kidney disease stage 3, BPH, and recent diagnosis stage II high-grade invasive urothelial carcinoma status post TURBT 12/2024 who presented to the hospital from cancer center due to low blood pressures. Patient is pleasant lying comfortably in bed. He states that he was placed on 1 L nasal cannula yesterday after becoming tachycardic when working with therapy. Attempted to wean patient off of the 1 L however when he sat up in bed for me to listen to his lungs he became more short of breath with hypoxia into the upper 80s and tachycardic into the 120s. After lying back down the tachycardia quick ly resolved as well as the hypoxia however patient remains on the 1 L at this time. Patient denies any shortness of breath when lying down as well as any associated cough. Patient also denies any chest pain, palpitations, nausea/vomiting, abdominal pain. Patient does continue to have dark red urine to his full with occasional bladder spasms. He states that these have been ongoing since his diagnosis bladder cancer. Review of Systems Review of Systems: All systems reviewed & are unremarkable except as noted in HPI and below Exam Narrative: AF HR 83 RR 18 Spo2 95 1L NC BP 112/44 General: male in no acute respiratory distress who is nontoxic appearing, lying semi recumbent in bed. HEENT: Normocephalic. Atraumatic. Extraocular movement intact. Sclera clear and anicteric. No facial asymmetry. Chest: Lungs are coarse to auscultation bilaterally with poor lung sounds heard to the bases L>R. CV: Heart was irregularly irregular rate and rhythm. Abd: Abdomen was soft. Nontender. Nondistended. Positive bowel sounds. Ext: No clubbing, cyanosis, or edema. DP pulses bilaterally. Neuro: Patient is alert and oriented x4. Speech is clear. Objective Data Vital Signs Vital Signs: Vital Signs - 24 hr 04/13/25 07:42 04/13/25 07:45 04/13/25 07:51 Temperature Pulse Rate 100 Respiratory Rate 18 Blood Pressure Pulse Oximetry 86 L 91 Oxygen Delivery Room Air Nasal Cannula Oxygen Flow Rate 1 Fraction of Inspired Oxygen 24 04/13/25 08:01 04/13/25 08:04 04/13/25 08:04 Temperature 97.4 F L Pulse Rate 95 95 95 Respiratory Rate 16 Blood Pressure 98/67 L Pulse Oximetry 94 Oxygen Delivery Oxygen Flow Rate Fraction of Inspired Oxygen 04/13/25 08:04 04/13/25 08:04 04/13/25 12:00 Temperature Pulse Rate 95 88 100 Respiratory Rate 16 Blood Pressure Pulse Oximetry 94 Oxygen Delivery Nasal Cannula Oxygen Flow Rate 1 Fraction of Inspired Oxygen 04/13/25 14:00 04/13/25 16:00 04/13/25 16:15 Temperature 98.8 F Pulse Rate 90 89 85 Respiratory Rate 22 H Blood Pressure 95/50 L Pulse Oximetry 95 Oxygen Delivery Oxygen Flow Rate Fraction of Inspired Oxygen 04/13/25 16:16 04/13/25 19:43 04/13/25 20:00 Temperature 97.7 F Pulse Rate 85 85 102 H Respiratory Rate 22 H 18 Blood Pressure 100/67 Pulse Oximetry 95 93 Oxygen Delivery Nasal Cannula Oxygen Flow Rate 1 Fraction of Inspired Oxygen 04/13/25 20:00 04/13/25 20:03 04/13/25 20:03 Temperature Pulse Rate 99 103 H Respiratory Rate 19 Blood Pressure Pulse Oximetry 91 Oxygen Delivery Nasal Cannula Oxygen Flow Rate 1 Fraction of Inspired Oxygen 04/14/25 00:00 04/14/25 03:20 04/14/25 04:00 Temperature 97.6 F Pulse Rate 90 97 67 Respiratory Rate 18 Blood Pressure 100/59 L Pulse Oximetry 91 Oxygen Delivery Oxygen Flow Rate Fraction of Inspired Oxygen Intake/Output Intake/Output: Intake & Output 04/11/25 04/12/25 04/13/25 04/14/25 23:59 23:59 23:59 23:59 Intake Total 5246 429 9144 780 Output Total 2154 437 5637 1000 Balance 284 -300 130 -220 Meds/Results Medications: Active Medications Generic Name Dose Route Start Last Admin Trade Name Freq PRN Reason Stop Dose Admin Acetaminophen 1,000 mg 04/09/25 23:47 04/14/25 05:05 Acetaminophen 500 Mg Tablet PO 1,000 mg Q6H PRN Administration pain 1-3 or fever Aspirin 325 mg 04/10/25 09:00 04/13/25 08:03 Aspirin 325 Mg Enteric Tablet PO 325 mg DAILY BANG Administration Atorvastatin Calcium 40 mg 04/10/25 09:00 04/13/25 08:03 Atorvastatin 40 Mg Tablet PO 40 mg DAILY BANG Administration Digoxin 125 mcg 04/09/25 23:50 04/13/25 16:16 Digoxin Tab 125 Mcg Tablet PO 125 mcg BID BANG Administration Diltiazem HCl 30 mg 04/09/25 23:50 04/13/25 16:16 Diltiazem Hcl 30 Mg Tablet PO 30 mg BID BANG Administration Heparin Sodium (Beef Lung) 50 units 04/12/25 09:00 04/13/25 08:05 Heparin Flush 50 Units/5 Ml Syringe IV PUSH 50 units QAM BANG Administration Heparin Sodium (Beef Lung) 50 units 04/12/25 08:44 Heparin Flush 50 Units/5 Ml Syringe IV PUSH PRN PRN after intermittent infusion Heparin Sodium (Beef Lung) 50 units 04/12/25 08:44 04/13/25 06:28 Heparin Flush 50 Units/5 Ml Syringe IV PUSH 50 units PRN PRN Administration after blood draws Heparin Sodium (Porcine) 500 units 04/12/25 08:44 Heparin Sodium Lock Flush 500 Units/5 Ml Syringe IV PUSH PRN PRN see comments below Linezolid 600 mg 04/10/25 09:00 04/13/25 20:17 Linezolid 600 Mg Tablet PO 600 mg Q12HR BANG Administration Metoprolol Succinate 50 mg 04/09/25 23:50 04/13/25 16:15 Metoprolol Succinate Ext Rel 50 Mg Tabcr PO 50 mg BID BANG Administration Midodrine 10 mg 04/10/25 09:00 04/13/25 16:15 Midodrine Hcl 10 Mg Tablet PO 10 mg TID BANG Administration Ondansetron HCl 4 mg 04/09/25 23:50 04/13/25 16:17 Ondansetron Inj 4 Mg/2 Ml Vial IV PUSH 4 mg Q6H PRN Administration Nausea And Vomiting Fluticasone/Salmeterol 2 puff 04/10/25 08:00 04/13/25 20:03 Fluticasone/Salmeterol 115-21 Mcg Inhaler 1 Puff INHALATION 2 puff Q12HRT BANG Administration Sodium Chloride 10 ml 04/12/25 14:00 04/14/25 05:06 Central Line Flush IV PUSH 10 ml Q8HR BANG Administration Tamsulosin HCl 0.8 mg 04/10/25 09:00 04/13/25 08:04 Tamsulosin Hcl 0.4 Mg Capsule PO 0.8 mg QAM BANG Administration Vitamin D 50 mcg 04/10/25 09:00 04/13/25 08:03 Cholecalciferol (Vitamin D3) 25 Mcg (1,000 Units) Tablet PO 50 mcg DAILY BANG Administration Radiology Results: ITS Impressions Abdomen/Pelvis CT 04/09/25 19:36 IMPRESSION: 1. Moderate emphysema with bronchial wall thickening and superimposed smooth septal line thickening and groundglass opacities in the bilateral lower lungs most likely pulmonary edema although differential would include pneumonia. 2. Moderate-sized left and small right pleural effusions. 3. Mild right hydronephrosis with bilateral intraureteral stents in expected position and Myers catheter in the decompressed bladder. There is some urothelial enhancement at the right renal pelvis which raises concern for ascending urinary tract infection and would correlate with urinalysis. Labs Labs: Laboratory Results - last 24 hr 04/14/25 05:09 WBC 6.4 RBC 2.59 L Hgb 8.7 L Hct 26.8 L MCV 103.5 H MCH 33.6 MCHC 32.5 RDW 15.0 H Plt Count 134 L MPV 10.8 H Sodium 131 L Potassium 4.3 Chloride 107 Carbon Dioxide 21 L Anion Gap 3 L BUN 25 H Creatinine 1.46 H Estim Creat Clear Calc 50 Estimated GFR 48 L Glucose 93 Calcium 8.0 L Total Bilirubin 0.4 AST 21 ALT 16 Alkaline Phosphatase 87 Total Protein 5.4 L Albumin 2.2 L Quality VTE Prophylaxis VTE prophylaxis: mechanical ordered (SCDs)
[2025-04-14] MEDS: FLUTICASONE/SALMETEROL 115-21 MCG INHALER 1 PUFF 2 PUFF INHALATION ×2 (08:29→19:40)
[2025-04-14] MEDS: CHOLECALCIFEROL (VITAMIN D3) 25 MCG (1,000 UNITS) TABLET 50 MCG PO (08:59)
[2025-04-14] MEDS: TAMSULOSIN HCL 0.4 MG CAPSULE 0.8 MG PO (09:00)
[2025-04-14] MEDS: ASPIRIN 325 MG ENTERIC TABLET PO (09:00)
[2025-04-14] MEDS: METOPROLOL SUCCINATE EXT REL 50 MG TABCR PO ×2 (09:00→17:06)
[2025-04-14] MEDS: MIDODRINE HCL 10 MG TABLET PO ×3 (09:00→17:06)
[2025-04-14] MEDS: ATORVASTATIN 40 MG TABLET PO (09:01)
[2025-04-14] MEDS: DIGOXIN TAB 125 MCG TABLET PO ×2 (09:01→17:07)
[2025-04-14] MEDS: LINEZOLID 600 MG TABLET PO ×2 (09:01→21:04)
--- NOTE | 2025-04-14 09:10 | PC.NURSE ---
Patient working with therapy and developed symptomatic tachycardia. Patient heart rate while working with therapy between 140-170 BPM. Patient returned to bed and heart rate lowered and sustained between 95-115 BPM. Provider notified.
--- NOTE | 2025-04-14 15:03 | PCPTNOTE ---
The patient treatment was not able to be completed due to increased SOB and HR at rest. Will plan to continue treatment per plan of care.
[2025-04-14 15:51] LABS: INR 1.2; Prothrombin Time 15.2 Seconds (11.1-14.7)
[2025-04-14 17:20] LABS: Albumin Level 2.1 g/dL (3.5-5.1); Amylase 45 U/L (30-110); Bilirubin,Total 0.2 mg/dL (0.2-1.3); Cholesterol 73 mg/dL (0-200); Glucose 104 mg/dL (65-110); Total Protein 5.2 g/dL (6.3-8.2); Triglycerides 69 mg/dL (<150)
[2025-04-15] VITALS (23 sets, daily range): BP systolic 83–110; BP diastolic 45–70; PULSE 71–104; RESP 12–24; TEMP 36.2–37; O2SAT 91–100
--- OUTSIDE RECORDS SUMMARY | 2025-04-15 01:49 | XMS_ITS | Clinical Summary ---
Author Organization [facility] Address [address] [place] [address] Care Team Providers Care Law Reporter Name Role Phone David Felix MD Unavailable Raya Lozoya PA-C Primary Care Provider [phone] Allergies No known active allergies Medications INCRUSE ELLIPTA 62.5 MCG/INH AEROSOL POWDER, BREATH ACTIVATEDIndica tions:Pulmonary emphysema (CMS/HCC HHS/HCC) INHALE 1 PUFF BY MOUTH ONCE DAILY 30 each 6 09/04/2018 Active albuterol sulfate HFA (VENTOLIN HFA) 108 (90 Base) MCG/ACT inhalerIndicati ons:Pulmonary emphysema ([facility]/HCC HHS/HCC) Inhale 2 puffs into the lungs every 6 (six) hours as needed for Wheezing. 1 Inhaler 12/08/2018 Active aspirin 81 MG tablet Take 1 tablet (81 mg total) by mouth daily. 11/08/2014 Active vitamin D2, ergocalciferol, 52691 UNITS capsule Take 1 capsule (50,000 Units [...] AEROSOL POWDER, BREATH ACTIVATEDIndica tions:Centrilob ular emphysema ([facility]) Inhale 1 puff into the lungs 2 (two) times a day. 1 each 6 07/02/2019 Active Active Problems Problem Noted Date Diagnosed Date Cigarette nicotine dependence in remission 03/30 KELLI (obstructive sleep apnea) 10/25/2017 Pulmonary nodule 10/25/2017 Pulmonary emphysema ([facility]) 10/25/2017 Environmental and seasonal allergies 07/25/2017 Excessive daytime sleepiness 07/25/2017 GERD (gastroesophageal reflux disease) 7 SOB (shortness of breath) on exertion 07/25/2017 Paraseptal emphysema ([facility]) 7 Aortic atherosclerosis 07/19/2017 Precordial pain 07/19/2017 Syncope 07/19/2017 Former smoker 06/21/2017 Centrilobular emphysema ([facility]) 2016 Heart murmur 06/21/2017 Marijuana use [...] history exists Annual Medicare Wellness Visit 2022 DTaP, Tdap and Td Vaccines (2 - Td or Tdap) 10/08/2024 10/08/2014 Lung Cancer Screening 01/12/2025 01/13/2024 , 12/22/2021, 04/01/2019, Additional history exists COVID-19 Vaccine ( season) 2025 07/05/2021, 06/14/2021 Hepatitis C Completed 10/08/2014 AAA SCREENING Completed [...] this topic Medical Devices Implanted Type Area Wafer Slicer Device Identifier Shelf Expiration Date Model / Serial / Lot Ureteral Stent-12/11/19 25 Implanted:Qt y: 1 on 12/10/2024 by Damian Duarte MD Stent Left: Ureter eBuilder RUPA 12/09/2026 [id number] / / [id number] Procedures Procedure Name Priority Date/Time Associated Diagnosis Comments CT LUNG SCREENING Routine 12/22/2021 12: 26 PM CDT Nicotine dependence, cigarettes, in remission LIPID PANEL Routine 08/07/2017 9:50 AM REGULATORY AFFAIRS CONSULTANT Chest pain SOB (shortness of breath) CT CHEST WO CON Routine 07/02/2017 10:10 AM REGULATORY AFFAIRS CONSULTANT Abnormal chest x-ray HEPATITIS A,B,& C Routine 10/08/2014 12: 10 PM REGULATORY AFFAIRS CONSULTANT from Last 3 Months or Most [...] * (ABNORMAL) LIPID PANEL (08/07/2017 9:50 AM REGULATORY AFFAIRS CONSULTANT) CHOLESTEROL 185 <200 MG/DL 08/07/2017 11:00 AM REGULATORY AFFAIRS CONSULTANT [facility] TRIGLYCERIDES 66 <150 MG/DL 08/07/2017 11:00 AM [facility] HDL 47 >40.0 MG/DL 08/07/2017 11:00 AM [facility] LDL (CALCULATED) 124.8(H) <100 MG/L 08/07/20 17 11:00 AM [facility] NON HDL CHOLESTEROL 138(H) <130 MG/DL 08/07/2017 11:00 AM [facility] CHOL/HDL RATIO 3.9 0.0 - 4.5 08/07/2017 11:00 AM [facility] VLDL CALCULATION 13 5 - 55 MG/DL 08/07/2017 11:00 AM [facility] LIPID INTERPRETATION 08/07/2017 11:00 AM [facility] Comment: [facility] CONCENSUS REPORT RECOMMENDATIONS: ADULT CHILD LOW RISK: CHOLESTEROL <200 <170 TRIGLYCERIDE <150 --- HDL >=60 --- LDL <100 <110 BORDERLINE: CHOLESTEROL 200-239 170-199 TRIGLYCERIDE 150-199 --- HDL 40-59 --- LDL 100-159 110-129 HIGH RISK: CHOLESTEROL >=240 >=200 TRIGLYCERIDE >=200 --- HDL <40 --- LDL >=160 >=130 08/07/2017 9:50 AM REGULATORY AFFAIRS CONSULTANT Mikel Shepard MD LABORATORY Final Result [facility] [address] [place] [address], * CT CHEST WO CON (07/02/2017 10:10 AM REGULATORY AFFAIRS CONSULTANT) Anatomical Region Laterality Modality Chest Computed Tomogra phy 07/02/2017 10:2 1 AM REGULATORY AFFAIRS CONSULTANT Impressions 07/02/2017 10:46 AM REGULATORY AFFAIRS CONSULTANT =====IMPRESSION:===== 1. Nodularity of the pleura [...] of bowel involvement. Narrative 07/02/2017 10:46 AM REGULATORY AFFAIRS CONSULTANT EXAMINATION: CT Chest without contrast EXAM [...] * HEPATITIS A,B,& C (10/08/2014 12:10 PM REGULATORY AFFAIRS CONSULTANT) HAV IGM NON-REACTI VE NR [facility] TO EPIC CONVERSION HEPATITIS B SURFACE AG NON-REACTI VE NR [facility] TO EPIC CONVERSION HEP B SURFACE AB NON-REACTI VE [facility] TO EPIC CONVERSION HEP B CORE TOTAL AB NON-REACTI VE NR [facility] TO EPIC CONVERSION HEPATITIS C AB NON-REACTI VE NR [facility] TO EPIC CONVERSION Comment: Result Comment: TESTING PERFORMED AT [facility], A MEMBER OF THE [facility]. 10/08/2014 12:1 0 PM REGULATORY AFFAIRS CONSULTANT 10/08/2014 12:10 PM REGULATORY AFFAIRS CONSULTANT Narrative [facility] TO EPIC CONVERSION - 10/11/2014 5:34 PM REGULATORY AFFAIRS CONSULTANT 13Oct2014 7:23AM by Donovan Saba: Mr [...] Most Recently Relevant to Health Maintenance Insurance [facility] Care Teams Law Reporter Relationship Specialty Start Date End Date Raya Lozoya PAMarileeC [address] [place] [address] PCP - General PHYSICIAN BUSINESS SERVICES CLERK 12/10/24 David Felix MD [facility] [address] [place], [place] [id number] [place] Chlorination Operator INTERVENTIONAL CARDIOLOGY 06/17/19
--- OUTSIDE RECORDS SUMMARY | 2025-04-15 01:49 | XMS_ITS | Clinical Summary ---
Author Organization [facility] Address [address] [place] [address] Care Team Providers Care Regional Marketing Manager Name Role Phone Jazmin Abel MD Primary Care Provider [phone] Source Comments [facility],non-owned Affiliates and Associated Physician Practices is amultiple site organization consisting of ambulatory clinics and hospital sitesin [place], [place], [place] and [place]. This disclosure is being madepursuant to the Care Everywhere program and may not contain all information available regarding this patient. 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 Interventions: Insurance MEDICARE MEDICARE [facility] MANAGED MEDICARE ADV SELF PAY NO INSURANCE Member Subscriber Plan / Payer (Ef fective for All Dates) Name:Walter Henley Member ID:Not on file Relation to Subscriber:Not on file Name:WALTER HENLEY Subscriber ID:Not on file (Home) Address[address] [place] [address] Payer ID:Not on file Group ID:Not on file Type:Self Pay Address: [facility] MANAGED MEDICARE ADV MEDICARE Care Teams Regional Marketing Manager Relationship Specialty Start Date End Date Jazmin Abel MD [address] [place] [address] PCP - General 05/14/19
--- OUTSIDE RECORDS SUMMARY | 2025-04-15 01:49 | XMS_ITS | Clinical Summary ---
Author Organization [facility] Address [address] [place] [address] Care Team Providers Care Crowning Hammer Operator Name Role Phone Raya Lozoya Primary Care Provider [phone] Allergies No known active allergies Medications alendronate [...] inhalerIndicati ons:ILD (interstitial lung disease) ([facility]),Chronic obstructive pulmonary disease, unspecified COPD type ([facility]) Inhale 2 puffs every 6 [...] on file Legal Sex Male 9:52 AM LICENSED SALES ASSISTANT Gender Identity Not on file Sexual Orientation Not on file Occupation Industry Job Start Date Job End Date disabled Not on file Not on file Not on file Obstetrics History Last Filed Vital Signs Vital Sign Reading Time Taken Comments Blood Pressure 117/66 09/07/2024 1:50 PM LICENSED SALES ASSISTANT Pulse 54 09/07/2024 1:50 PM LICENSED SALES ASSISTANT Temperature 36.5 C (97.7 F) 04/04/2016 3:05 PM CDT Respiratory Rate 18 09/07/2024 1:50 PM LICENSED SALES ASSISTANT Oxygen Saturation 98% 09/07/2024 1:50 PM LICENSED SALES ASSISTANT Inhaled Oxygen Concentration - - Weight 92.1 kg (203 lb) 09/07/2024 1:50 PM LICENSED SALES ASSISTANT Height 185.4 cm (6' 1) 09/07/2024 1:50 PM LICENSED SALES ASSISTANT Body Mass Index 26.78 09/07/2024 1:50 PM LICENSED SALES ASSISTANT Plan of Treatment Health Maintenance Due Date [...] signed by Alessio RICHARD T: Report ID: [id number] Reading Location: [place] [address] Procedure Note Alessio Vernon MD - 11/13/2024 [...] signed by Alessio RICHARD T: Report ID: [id number] Reading Location: [place] [address] Stacia Anthony MD IM CT PROCEDURES Final Resul t from Last 3 Months or Most Recently Relevant to Health Maintenance Insurance [facility] MEDICARE ADVANTAGE [facility]IC[facility] Address: [facility] [address] [place] [address] Care Teams Crowning Hammer Operator Relationship Specialty Start Date End Date Raya Lozoya PA [facility] [place] [address] PCP - General Physician Journeyman Power Plant Operator 01/09/22
--- OUTSIDE RECORDS SUMMARY | 2025-04-15 01:49 | XMS_ITS | Encounter Summary ---
Demographics Address [address] [facility] [address] [place] [address] Mobile Phone Preferred Language Unknown Marital Status Bahai Affiliation Unknown Race White Ethnic Group Unknown Author Organization [facility] ANITRA Potter [facility] Address [address] [place] [address] Care Team Providers Care Home Security Alarm Installer Name Role Phone Unavailable Primary Care Provider Unavailabl e Encounter Details Date Type Department Care Team (Late Contact Info) Description 04/12/2025 Orders Only [facility] Oncology and Hematology [facility] Diann R[address] [place] [address] Dyllan Friedman MD [address] [place] [address] [employer] [address] [place] [phone] Malignant neoplasm of urinary bladder, unspecified site (CMS/HCC) Social History Tobacco Use Types Packs/Day Years [...] Encounters Date Type Department Care Team (Late Contact Info) Description 05/03/2025 9:15 AM CDT Office Visit [facility] Oncology and Hematology - Darin Rissa [address] [place] [address] Dyllan Friedman MD [address] [place] [address] documented as of this encounter Visit Diagnoses Diagnosis Malignant neoplasm of urinary bladder, unspecified site (CMS/HCC) documented in this encounter
--- OUTSIDE RECORDS SUMMARY | 2025-04-15 01:49 | XMS_ITS | Encounter Summary ---
Author Organization [facility] Facility Care Team Providers Care Aluminum Fabrication Supervisor Name Role Phone Jazmin Abel MD Primary Care Provider [phone] Raya Lozoya Primary Care Provider [phone] Encounter Details Date Type Department Care Team (Latest Contact Info) Description 07/28/2017 Orders Only [facility] ProviderCameron MD [address] [place] [address] Social History Tobacco Use Types Packs/Day Years Used Date Smoking Tobacco: Never Assessed Sex and Gender Information Value Date Recorded Sex Assigned at Not on file Legal Sex Male 9:52 AM SUPPLY CHAIN COORDINATOR Gender Identity Not on file Sexual Orientation Not on file documented as of this encounter Plan of Treatment Not on file documented as of this encounter Procedures Procedure Name Priority Date/Time Associated Diagnosis Comments CARDIOLOGY REPORT 07/01/2018 12: 00 AM SUPPLY CHAIN COORDINATOR documented in this encounter Results * CARDIOLOGY REPORT (07/01/2018 12:00 AM SUPPLY CHAIN COORDINATOR) Anatomical Region Laterality Modality Other Narrative 07/01/2018 12:00 AM SUPPLY CHAIN COORDINATOR Ordered by an unspecified provider. Historical Provider [facility] PHIL RIZVI Final Result documented in this encounter Visit Diagnoses Not on filedocumented in this encounter Care Teams Aluminum Fabrication Supervisor Relationship Specialty Start Date End Date Jazmin Abel MD PCP - General Family Medicine 06/12/18 01/08/22 Raya Lozoya PA [address] [place] [address] PCP - General Physician Icu Registered Nurse 01/09/22 documented as of this encounter
--- OUTSIDE RECORDS SUMMARY | 2025-04-15 01:49 | XMS_ITS | Encounter Summary ---
Author Organization [facility] Facility Care Team Providers Care Mail Processing Associate Name Role Phone Jazmin Abel MD Primary Care Provider [phone] Raya Lozoya Primary Care Provider [phone] Encounter Details Date Type Department Care Team (Latest Contact Info) Description 04/04/2016 Orders Only [facility] ProviderCameron MD [address] [place] [address] Social History Tobacco Use Types Packs/Day Years Used Date Smoking Tobacco: Never Assessed Sex and Gender Information Value Date Recorded Sex Assigned at Not on file Legal Sex Male 9:52 AM BUFFING WHEEL 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
--- OUTSIDE RECORDS SUMMARY | 2025-04-15 01:49 | XMS_ITS | Encounter Summary ---
Author Organization [facility] Address [address] [place] [address] Care Team Providers Care Life Insurance Sales Agent Name Role Phone Mikel Shepard MD Unavailable [phone] Jazmin Abel MD Primary Care Provider [phone] David Felix MD Unavailable Raya Lozoya PA-C Primary Care Provider [phone] Encounter Details Date Type Department Care Team (Late st Contact Info) Description 07/19/2017 Abstract [facility] at [address] [address] Mallory Jackson [place] Social History [...] on filedocumented in this encounter Care Teams Life Insurance Sales Agent Relationship Specialty Start Date End Date Jazmin Abel MD [facility] [place] [address] PCP - General FAMILY PRACTICE 03/30/19 12/09/24 Raya Lozoya PAMarileeC [address] [place] [id number] PCP - General PHYSICIAN DIRECTOR [employer] 12/10/24 Mikel Shepard MD [place] Flag Football Coach CARDIOVASCULAR DISEASE 06/18/17 04/01/18 David Felix MD [facility]. [facility] [address] [place] [address] [place] Flag Football Coach INTERVENTIONAL CARDIOLOGY 06/17/19 documented as of this encounter
--- OUTSIDE RECORDS SUMMARY | 2025-04-15 01:49 | XMS_ITS | Encounter Summary ---
Author Organization [facility] Facility Care Team Providers Care Thermal Cutter Hand Name Role Phone Jazmin Abel MD Primary Care Provider [phone] Raya Lozoya Primary Care Provider [phone] Encounter Details Date Type Department Care Team (Latest Contact Info) Description 06/26/2018 Orders Only [facility] ProviderCameron MD [address] [place] [address] Social History Tobacco Use Types Packs/Day Years Used Date Smoking Tobacco: Never Assessed Sex and Gender Information Value Date Recorded Sex Assigned at Not on file Legal Sex Male 9:52 AM AIR DEFENSE SPECIALIST Gender Identity Not on file Sexual Orientation Not on file documented as of this encounter Plan of Treatment Not on file documented as of this encounter Procedures Procedure Name Priority Date/Time Associated Diagnosis Comments CARDIOLOGY REPORT 07/08/2018 12: 00 AM AIR DEFENSE SPECIALIST documented in this encounter Results * CARDIOLOGY REPORT (07/08/2018 12:00 AM AIR DEFENSE SPECIALIST) Anatomical Region Laterality Modality Other Narrative 07/08/2018 12:00 AM AIR DEFENSE SPECIALIST Ordered by an unspecified provider. Historical Provider [facility] PHIL RIZVI Final Result documented in this encounter Visit Diagnoses Not on filedocumented in this encounter Care Teams Thermal Cutter Hand Relationship Specialty Start Date End Date Jazmin Abel MD PCP - General Family Medicine 06/12/18 01/08/22 Raya Lozoya PA [address] [place] [address] PCP - General Physician Car Sweeper 01/09/22 documented as of this encounter
[2025-04-15 05:26] LABS: Hematocrit 26.4 % (42.0-52.0); Hemoglobin 8.4 g/dL (14.0-18.0); Mean Corpuscular HGB Conc 31.8 g/dl (32-36); Mean Corpuscular Hemoglobin 33.1 pg (26-34); Mean Corpuscular Volume 103.9 fl (80-100); Platelet Count Result 127 k/mm3 (150-375); Red Blood Count 2.54 M/mm3 (4.6-6.20); White Blood Count 5.7 K/mm3 (4.5-10.0)
[2025-04-15 05:48] LABS: Alanine Aminotransferase 19 U/L (6-50); Albumin Level 2.1 g/dL (3.5-5.1); Alkaline Phosphatase 85 U/L (38-126); Anion Gap 3 mmol/L (4-12); Aspartate Amino Transferase 22 U/L (17-59); Bilirubin,Total 0.3 mg/dL (0.2-1.3); Blood Urea Nitrogen 24 mg/dL (9-20); Calcium 8.0 mg/dL (8.4-10.2); Carbon Dioxide 21 mmol/L (22-30); Chloride 106 mmol/L (98-107); Estimated CRCL calculation 48 ml/min; Estimated Glomerular Filt Rate 46; Glucose 100 mg/dL (65-110); Potassium 4.4 mmol/L (3.4-5.0); Sodium 130 mmol/L (137-145); Total Protein 5.5 g/dL (6.3-8.2)
--- NOTE | 2025-04-15 06:01 | WPDHPUPDATE1 ---
History and Physical Update Update Date/Time: 04/15/25 06:01 History and Physical has been reviewed, including an updated exam of the patient. There are NO changes in the patient's condition. Risks, benefits, and alternatives have been discussed and questions answered. Patient agrees to proceed with procedure.
[2025-04-15] MEDS: FLUTICASONE/SALMETEROL 115-21 MCG INHALER 1 PUFF 2 PUFF INHALATION ×2 (07:37→20:02)
--- NOTE | 2025-04-15 07:46 | P.PNIM_ITS ---
Progress Note: A&P Assessment and Plan (1) Acute respiratory failure with hypoxia: Code(s): J96.01 - Acute respiratory failure with hypoxia Status: Acute Assessment and Plan: - Chest CTA: No pulmonary embolism. Small right and moderate to large left pleural effusions with likely secondary partial collapse of the left lower lobe. Moderate emphysema superimposed mild pulmonary edema. Enlarged from prior CTA from 03/25 - Oxygen supplementation: weaned back to room air, maintain spo2 > 90 - Suspected cause: pleural effusion - see plan below #2 (2) Pleural effusion: Code(s): J90 - Pleural effusion, not elsewhere classified Status: Acute Assessment and Plan: - Symptoms: hypoxia requiring 1L NC with noted tachycardia - Chest CTA: No pulmonary embolism. Small right and moderate to large left pleural effusions with likely secondary partial collapse of the left lower lobe. Moderate emphysema superimposed mild pulmonary edema. Enlarged from prior CTA from 03/25 - Echo ordered Echo from 12/03/24 showed normal EF with severely enlarged bilateral atria with mild pulmonary htn - thoracentesis performed on 04/15 with 1L removed, postthora cxr showed small to mod left pleural effusion Afebrile, WBC WNL and denies a cough, will continue to hold antibiotics pending thoracentesis Patient has history of cancer, possible metastasis although no nodules or masses noted on imaging Will obtain echo to also evaluate for cardiac involvement of the effusion - Monitor vital signs, I&Os, BUN/creatinine, daily weights, neuro status and patient is a fall risk - Monitor serum electrolytes, Keep serum Potassium>4 and serum Magnesium>2 and CBC Patient states breathing has significantly improved since thoracentesis. Awaiting pleural fluid results. (3) Atrial fibrillation with RVR: Code(s): I48.91 - Unspecified atrial fibrillation Status: Acute Assessment and Plan: - Likely cause for RVR is acute infection of pyelonephritis - EKG: Atrial fibrillation rate 98 normal QT C4 37 low-voltage QRS extremity leads moderate ST depression in limb leads. - Chadsvasc Score: 1 per cardiology Anticoagulation: Aspirin - Echo 12/03/24: LVEF 55-60% with severely enlarged bilateral atria and mild pulmonary hypertension - Telemetry - Cardiology consulted Rate is OK right now at 90 bpm, BP is at 85 SBP. Will start Midodrine 10 mg PO TID to support BP. Rate control to be continued with Digoxin 125 mcg BID, Metoprolol Succinate 50 mg BID, Diltiazem 30 mg BID No further cardiac workup, please call with any questions. Rate remains well controlled. (4) Pyelonephritis: Code(s): N12 - Tubulo-interstitial nephritis, not specified as acute or chronic Status: Acute Assessment and Plan: Abdomen/Pelvis CT 04/09/25 19:36 Mild right hydronephrosis with bilateral intraureteral stents in expected position and Goodwin catheter in the decompressed bladder. There is some urothelial enhancement at the right renal pelvis which raises concern for ascending urinary tract infection and would correlate with urinalysis. - UA: red with 3+ protein, trace ketones, 3+ blood, negative nitrates, 1+ bili, 1+ leukocytes, > 100 RBC, 21-30 WBC - blood culture obtained on 04/09: NGTD - UC obtained on 04/09: final - negative - previous micro reviewed 03/25/25: VRE - started on linezolid given prior VRE on 03/25/25 Per chart review: most recent urine culture grew out VRE that is resistant to everything except for nitrofurantoin. The Infectious Disease hotel assistant general manager during his last hospitalization recommended that the patient be discharged on l inezolid. -urology consulted * High-grade non metastatic muscle invasive bladder cancer being managed with chemoradiation. Ureteral obstruction managed with chronic indwelling ureteral stents which were due to be changed. * s/p cystoscopy with bilateral ureteral stent exchange, bilateral retrograde pyelogram on 04/[address] Foster (5) Chronic indwelling Goodwin catheter: Code(s): Z97.8 - Presence of other specified devices Status: Acute (6) CKD (chronic kidney disease) stage 3, GFR 30-59 ml/min: Qualifiers: Chronic kidney disease stage 3 subtype: stage 3a (GFR 45-59) Qualified Code(s): N18.31 - Chronic kidney disease, stage 3a Code(s): N18.30 - Chronic kidney disease, stage 3 unspecified Status: Acute Assessment and Plan: Chronic, renal function appears at baseline - avoid nephrotoxic medications - renally dose medications - monitor I/O - continue to monitor renal function (7) Severe protein-calorie malnutrition: Code(s): E43 - Unspecified severe protein-calorie malnutrition Status: Acute Assessment and Plan: dietitian consult ordered prior for nutritional supplement recommendations. Time Spent With Patient Time with patient: 25 - 35 minutes Subjective Date/time seen: 04/15/25 07:46 Interval history: 69-year-old male with a past medical history of emphysema, rheumatoid arthritis, relatively recent diagnosis within the year of atrial fibrillation, chronic kidney disease stage 3, BPH, and recent diagnosis stage II high-grade invasive urothelial carcinoma status post TURBT 12/2024 who presented to the hospital from cancer center due to low blood pressures. Patient is pleasant lying comfortably in bed. Patient states that following his thoracentesis he feels significantly better denying any shortness of breath this time. Patient's view weaned to room air with stable saturations. Patient also underwent a cystoscopy with stent replacement with Urology today. He endorses slight abdominal pain but otherwise has no complaints. Goodwin catheter with bloody urine. Patient has no other complaints denying chest pain, palpitations, nausea/vomiting, abdominal pain. Review of Systems Review of Systems: All systems reviewed & are unremarkable except as noted in HPI and below Exam Narrative: AF HR 93 RR 18 SpO2 92 RA BP 98/56 General: male in no acute respiratory distress who is nontoxic appearing, lying semi recumbent in bed. HEENT: Normocephalic. Atraumatic. Extraocular movement intact. Sclera clear and anicteric. No facial asymmetry. Chest: Lungs are clear to the uppers with slight coarseness to the bases and diminishment to auscultation bilaterally L>R. CV: Heart was irregularly irregular rate and rhythm. Abd: Abdomen was soft. Nontender. Nondistended. Positive bowel sounds. : goodwin with bloody urine, no clots Ext: No clubbing, cyanosis, or edema. DP pulses bilaterally. Neuro: Patient is alert and oriented x4. Speech is clear. Objective Data Vital Signs Vital Signs: Vital Signs - 24 hr 04/14/25 08:25 04/14/25 08:34 04/14/25 08:55 Temperature Pulse Rate 97 Respiratory Rate 18 Blood Pressure 112/44 L Pulse Oximetry 91 95 Oxygen Delivery Nasal Cannula Nasal Cannula Oxygen Flow Rate 1 1 Fraction of Inspired Oxygen 04/14/25 09:00 04/14/25 09:01 04/14/25 09:01 Temperature Pulse Rate 95 95 95 Respiratory Rate 18 Blood Pressure Pulse Oximetry 95 Oxygen Delivery Nasal Cannula Oxygen Flow Rate 1 Fraction of Inspired Oxygen 04/14/25 09:01 04/14/25 12:00 04/14/25 14:00 Temperature Pulse Rate 92 83 102 H Respiratory Rate 18 Blood Pressure 86/66 L Pulse Oximetry 93 Oxygen Delivery Oxygen Flow Rate Fraction of Inspired Oxygen 04/14/25 16:00 04/14/25 16:00 04/14/25 17:05 Temperature Pulse Rate 94 74 76 Respiratory Rate 18 18 Blood Pressure 82/54 L 100/63 Pulse Oximetry 93 93 Oxygen Delivery Oxygen Flow Rate Fraction of Inspired Oxygen 04/14/25 17:06 04/14/25 17:07 04/14/25 19:40 Temperature Pulse Rate 76 76 Respiratory Rate Blood Pressure Pulse Oximetry 91 Oxygen Delivery Nasal Cannula Oxygen Flow Rate 1 Fraction of Inspired Oxygen 04/14/25 19:40 04/14/25 19:41 04/14/25 20:00 Temperature Pulse Rate 93 76 91 Respiratory Rate 18 18 Blood Pressure Pulse Oximetry 93 Oxygen Delivery Nasal Cannula Oxygen Flow Rate 2 Fraction of Inspired Oxygen 04/14/25 20:01 04/14/25 23:36 04/15/25 00:00 Temperature 98.1 F 98.0 F Pulse Rate 80 100 103 H Respiratory Rate 18 16 Blood Pressure 90/51 L 95/52 L Pulse Oximetry 91 90 Oxygen Delivery Oxygen Flow Rate Fraction of Inspired Oxygen 04/15/25 03:42 04/15/25 04:00 04/15/25 07:38 Temperature 98.6 F Pulse Rate 98 87 95 Respiratory Rate 16 20 Blood Pressure 96/54 L Pulse Oximetry 95 Oxygen Delivery Oxygen Flow Rate Fraction of Inspired Oxygen 04/15/25 07:40 Temperature Pulse Rate 95 Respiratory Rate 20 Blood Pressure Pulse Oximetry 91 Oxygen Delivery Room Air Oxygen Flow Rate Fraction of Inspired Oxygen Intake/Output Intake/Output: Intake & Output 04/12/25 04/13/25 04/14/25 04/15/25 23:59 23:59 23:59 23:59 Intake Total 650 1930 2300 Output Total 950 1800 1775 600 Balance -300 130 525 -600 Meds/Results Medications: Active Medications Generic Name Dose Route Start Last Admin Trade Name Freq PRN Reason Stop Dose Admin Acetaminophen 1,000 mg 04/09/25 23:47 04/14/25 05:05 Acetaminophen 500 Mg Tablet PO 1,000 mg Q6H PRN Administration pain 1-3 or fever Aspirin 325 mg 04/10/25 09:00 04/14/25 09:00 Aspirin 325 Mg Enteric Tablet PO 325 mg DAILY BANG Administration Atorvastatin Calcium 40 mg 04/10/25 09:00 04/14/25 09:01 Atorvastatin 40 Mg Tablet PO 40 mg DAILY BANG Administration Digoxin 125 mcg 04/09/25 23:50 04/14/25 17:07 Digoxin Tab 125 Mcg Tablet PO 125 mcg BID BANG Administration Diltiazem HCl 30 mg 04/09/25 23:50 04/14/25 17:06 Diltiazem Hcl 30 Mg Tablet PO 30 mg BID BANG Administration Heparin Sodium (Beef Lung) 50 units 04/12/25 09:00 04/14/25 09:01 Heparin Flush 50 Units/5 Ml Syringe IV PUSH 50 units QAM BANG Administration Heparin Sodium (Beef Lung) 50 units 04/12/25 08:44 Heparin Flush 50 Units/5 Ml Syringe IV PUSH PRN PRN after intermittent infusion Heparin Sodium (Beef Lung) 50 units 04/12/25 08:44 04/13/25 06:28 Heparin Flush 50 Units/5 Ml Syringe IV PUSH 50 units PRN PRN Administration after blood draws Heparin Sodium (Porcine) 500 units 04/12/25 08:44 Heparin Sodium Lock Flush 500 Units/5 Ml Syringe IV PUSH PRN PRN see comments below Linezolid 600 mg 04/10/25 09:00 04/14/25 21:04 Linezolid 600 Mg Tablet PO 600 mg Q12HR BANG Administration Metoprolol Succinate 50 mg 04/09/25 23:50 04/14/25 17:06 Metoprolol Succinate Ext Rel 50 Mg Tabcr PO 50 mg BID BANG Administration Midodrine 10 mg 04/10/25 09:00 04/14/25 17:06 Midodrine Hcl 10 Mg Tablet PO 10 mg TID BANG Administration Ondansetron HCl 4 mg 04/09/25 23:50 04/13/25 16:17 Ondansetron Inj 4 Mg/2 Ml Vial IV PUSH 4 mg Q6H PRN Administration Nausea And Vomiting Fluticasone/Salmeterol 2 puff 04/10/25 08:00 04/15/25 07:37 Fluticasone/Salmeterol 115-21 Mcg Inhaler 1 Puff INHALATION 2 puff Q12HRT BANG Administration Sodium Chloride 10 ml 04/12/25 14:00 04/14/25 21:04 Central Line Flush IV PUSH 10 ml Q8HR BANG Administration Tamsulosin HCl 0.8 mg 04/10/25 09:00 04/14/25 09:00 Tamsulosin Hcl 0.4 Mg Capsule PO 0.8 mg QAM BANG Administration Vitamin D 50 mcg 04/10/25 09:00 04/14/25 08:59 Cholecalciferol (Vitamin D3) 25 Mcg (1,000 Units) Tablet PO 50 mcg DAILY BANG Administration Radiology Results: ITS Impressions Abdomen/Pelvis CT 04/09/25 19:36 IMPRESSION: 1. Moderate emphysema with bronchial wall thickening and superimposed smooth septal line thickening and groundglass opacities in the bilateral lower lungs most likely pulmonary edema although differential would include pneumonia. 2. Moderate-sized left and small right pleural effusions. 3. Mild right hydronephrosis with bilateral intraureteral stents in expected position and Goodwin catheter in the decompressed bladder. There is some urothelial enhancement at the right renal pelvis which raises concern for ascending urinary tract infection and would correlate with urinalysis. Chest CTA 04/14/25 11:33 IMPRESSION: 1. No pulmonary embolism. 2. Small right and moderate to large left pleural effusions with likely secondary partial collapse of the left lower lobe. 3. Moderate emphysema superimposed mild pulmonary edema. 4. Likely tricuspid regurgitation with reflux of contrast into the inferior vena cava and right hepatic vein. 5. Unchanged mild right hydronephrosis. Labs Labs: Laboratory Results - last 24 hr 04/14/25 04/15/25 15:07 05:14 WBC 5.7 RBC 2.54 L Hgb 8.4 L Hct 26.4 L MCV 103.9 H MCH 33.1 MCHC 31.8 L RDW 14.9 H Plt Count 127 L MPV 10.1 PT 15.2 H INR 1.2 Sodium 130 L Potassium 4.4 Chloride 106 Carbon Dioxide 21 L Anion Gap 3 L BUN 24 H Creatinine 1.51 H Estim Creat Clear Calc 48 Estimated GFR 46 L Glucose 104 100 Calcium 8.0 L Total Bilirubin 0.2 0.3 AST 22 ALT 19 Alkaline Phosphatase 85 Lactate Dehydrogenase 128 Total Protein 5.2 L 5.5 L Albumin 2.1 L 2.1 L Triglycerides 69 Cholesterol 73 Amylase 45 Quality VTE Prophylaxis VTE prophylaxis: mechanical ordered (SCDs)
[2025-04-15] MEDS: CENTRAL LINE FLUSH 10 ML IV PUSH ×3 (08:19→20:52)
[2025-04-15] MEDS: TAMSULOSIN HCL 0.4 MG CAPSULE 0.8 MG PO (08:26)
[2025-04-15] MEDS: MIDODRINE HCL 10 MG TABLET PO ×2 (08:26→16:52)
[2025-04-15] MEDS: CHOLECALCIFEROL (VITAMIN D3) 25 MCG (1,000 UNITS) TABLET 50 MCG PO (08:30)
[2025-04-15] MEDS: ATORVASTATIN 40 MG TABLET PO (08:31)
[2025-04-15] MEDS: LINEZOLID 600 MG TABLET PO ×2 (08:31→20:52)
[2025-04-15] MEDS: DIGOXIN TAB 125 MCG TABLET PO ×2 (08:31→16:51)
[2025-04-15] MEDS: METOPROLOL SUCCINATE EXT REL 50 MG TABCR PO ×2 (08:31→16:52)
--- NOTE | 2025-04-15 09:40 | CY_PTH ---
PATIENT: Stanislav Cho LOC: [id number] U#:[id number] AGE/SX: 69/M ROOM: 241 RE04/11/[address]: Jessica Taylor PA-C : 1955 BED: 01 DIS: 04/17/2025 SPEC #: [id number] RECD: 04/15/25 10:41 STATUS: ELVIS REJeannette #: [id number] INGRID: 04/15/25 09:[address]: Jessica Taylor DEPT: [facility] Cytology RECD BY: Juanita Arthur ENTERED: 04/15/25 10:42 SP TYPE: Cytology OT DR: Raya Lozoya, DO Carmen Garcia DO Jeffrey A. Parres, MD Tissues: A - Pleural Fluid Procedures: Hematoxylin and Eosin Stain Cell Block [id number] Calretinin Cytopathology Cytospin [id number]
--- NOTE | 2025-04-15 10:01 | PCOTNOTE ---
The patient treatment was not able to be completed patient just got back from thoracentesis. Patient reports he needs to rest. RN reports he has another procedure later as well. Will plan to continue treatment per plan of care.
--- NOTE | 2025-04-15 10:38 | PCNFU ---
Nutrition Follow-Up Complete: Moderate protein calorie malnutrition related to inadequate energy intake as evidenced by a significant weight loss of -10% x 4 months, decreased po intake for greater than 1 month, and NFPE findings for severe subcutaneous fat loss and severe muscle wasting. goal: PO intake greater than 50% Patient is progressing towards goal. We will continue current goal. Pt current nutrition is NPO. Nutrition recommendation: Heart Healthy with Ensure Plus High Protein. Last recorded weight is 94 kg, up from 81 kg on admit Bowel Motility: Last reported BM 04/15 Labs Reviewed: Cr 1.5, Na 130, BUN 24, Hgb 8.4, Hct 26.4 Meds Noted: Vit D Skin: WNL Additional Notes:Patient NPO for thoracentesis today. Patient has been tolerating heart health diet with intake > 75% of meals. Diet supplements are providing an additional 350 kcal and 20 gm protein. Agree with diet orders. Monitor intake, wt, labs. Follow up in 5 days.
[2025-04-15 11:03] LABS: Appearance Pleural Fluid Cloudy (Clear); Color Pleural Fluid Red (Colorless); Nucleated Cell Pleural Fluid 650 /uL (0-1000)
[2025-04-15 11:04] LABS: Lymphocytes Pleural Fluid 88 %; Macrophages Pleural Fluid 10 %; Mesothelial Cells Pleural Flui 1 %; Monocytes Pleural Fluid 1 %
--- NOTE | 2025-04-15 12:15 | WPDANESEPPF ---
Anes - Initial Pre Proc Eval Procedure: Operation Date: 04/15/25 08:15 Proposed Procedures p Cystoscopy with Bilateral Stent Exchange - Lon Foster MD Date/Time: 04/15/25 12:15 Surgeon: Carmen Gautam DO Pre Op Diagnosis: Pyelonephritis Patient Data Age: 69 Gender: M Height: 1.85 m Weight: 94 kg Last Vital Signs Temp 37.0 C 04/15/25 11:40 Pulse 88 04/15/25 11:40 Resp 18 04/15/25 11:40 BP 83/59 L 04/15/25 11:40 Pulse Ox 97 04/15/25 11:40 O2 Del Method Nasal Cannula 04/15/25 08:00 O2 Flow Rate 1.5 04/15/25 08:00 FiO2 24 04/14/25 19:41 Allergies Allergy/AdvReac Type Severity Reaction Status Date / Time No Known Allergies Allergy Verified 04/09/25 23:07 Home Medications ?Medication ?Instructions ?Recorded ?Confirmed ?Type nitroglycerin 0.4 mg sublingual 0.4 mg sublingual Q5M PRN Chest 02/09/21 04/09/25 History tablet Pain vitamin B12 0.5 mg-folic acid 1 mg 1 tablet PO DAILY 02/09/21 04/09/25 History tablet aspirin 325 mg tablet,delayed 325 mg PO DAILY 12/20/21 04/09/25 History release atorvastatin 40 mg tablet 40 mg PO DAILY 12/27/21 04/09/25 History tamsulosin 0.4 mg capsule 0.8 mg PO QAM 02/18/23 04/09/25 History albuterol sulfate 90 mcg/actuation 2 puff inhalation Q6H PRN 12/02/24 04/09/25 History aerosol inhaler shortness of breath or wheezing budesonide-formoterol HFA 160 2 puff inhalation DAILY 12/02/24 04/09/25 History mcg-4.5 mcg/actuation aerosol inhaler (Symbicort) cholecalciferol (vitamin D3) 50 50 mcg PO DAILY 03/15/25 04/09/25 History mcg (2,000 unit) capsule digoxin 125 mcg (0.125 mg) tablet 125 mcg PO BID #60 tabs 04/01/25 04/09/25 Rx diltiazem HCl 30 mg tablet 30 mg PO BID #60 tabs 04/01/25 04/09/25 Rx linezolid 600 mg tablet 600 mg PO Q12HR #12 tabs 04/01/25 04/09/25 Rx metoprolol succinate 50 mg 50 mg PO BID #60 tabs 04/01/25 04/09/25 Rx tablet,extended release 24 hr acetaminophen 500 mg capsule 1,000 mg PO Q6H PRN pain 04/09/25 04/09/25 History lidocaine-prilocaine 2.5 %-2.5 % 04/09/25 History topical cream Laboratory Tests 04/14/25 04/14/25 04/15/25 15:07 15:08 05:14 WBC 5.7 K/mm3 (4.5-10.0) RBC 2.54 L M/mm3 (4.6-6.20) Hgb 8.4 L g/dL (14.0-18.0) Hct 26.4 L % (42.0-52.0) MCV 103.9 H fl (80-100) MCH 33.1 pg (26-34) MCHC 31.8 L g/dl (32-36) RDW 14.9 H % (11.5-14.5) Plt Count 127 L k/mm3 (150-375) MPV 10.1 fl (7.4-10.4) PT 15.2 H Seconds (11.1-14.7) INR 1.2 Sodium 130 L mmol/L (137-145) Potassium 4.4 mmol/L (3.4-5.0) Chloride 106 mmol/L (98-107) Carbon Dioxide 21 L mmol/L (22-30) Anion Gap 3 L mmol/L (4-12) BUN 24 H mg/dL (9-20) Creatinine 1.51 H mg/dL (0.7-1.3) Estim Creat Clear Calc 48 ml/min Estimated GFR 46 L (59 - ) Glucose 104 mg/dL 100 mg/dL (65-110) (65-110) Calcium 8.0 L mg/dL (8.4-10.2) Total Bilirubin 0.2 mg/dL 0.3 mg/dL (0.2-1.3) (0.2-1.3) AST 22 U/L (17-59) ALT 19 U/L (6-50) Alkaline Phosphatase 85 U/L (38-126) Lactate Dehydrogenase 128 U/L (120-246) Total Protein 5.2 L g/dL 5.5 L g/dL (6.3-8.2) (6.3-8.2) Albumin 2.1 L g/dL 2.1 L g/dL (3.5-5.1) (3.5-5.1) Triglycerides 69 mg/dL (<150) Cholesterol 73 mg/dL (0-200) Amylase 45 U/L (30-110) RBC Adenosine Deaminase Pending Fluid Glucose Fluid Total Protein Fluid Albumin Fluid LDH Fluid Amylase Fluid Cholesterol Fluid Triglycerides Pleural Fluid Source Pleural Color Pleural Appearance Pleural pH Pleural RBC Pleural Nuc Cells Pleural Lymphocytes Pleural Monocytes Pleural Macrophages Pleural Mesothelial Pleural Total Protein 04/15/25 04/15/25 09:14 09:40 WBC RBC Hgb Hct MCV MCH MCHC RDW Plt Count MPV PT INR Sodium Potassium Chloride Carbon Dioxide Anion Gap BUN Creatinine Estim Creat Clear Calc Estimated GFR Glucose Calcium Total Bilirubin AST ALT Alkaline Phosphatase Lactate Dehydrogenase Total Protein Albumin Triglycerides Cholesterol Amylase RBC Adenosine Deaminase Fluid Glucose Pending Fluid Total Protein Pending Fluid Albumin Pending Fluid LDH Pending Fluid Amylase Pending Fluid Cholesterol Pending Fluid Triglycerides Pending Pleural Fluid Source Pleural fluid Pleural Color Red (Colorless) Pleural Appearance Cloudy (Clear) Pleural pH 7.470 (7.210-7.500) Pleural RBC < 2000 /uL (0-01404) Pleural Nuc Cells 650 /uL (0-1000) Pleural Lymphocytes 88 % Pleural Monocytes 1 % Pleural Macrophages 10 % Pleural Mesothelial 1 % Pleural Total Protein Cancelled Patient hx anesthesia problems: none Family hx anesthesia problems: none Results Review: All pre-operative results and documents have been reviewed as part of the pre-operative evaluation. [facility] Past Medical History Medical History CKD (chronic kidney disease) stage 3, GFR 30-59 ml/min Basal cell carcinoma of jawline Prostate CA Systolic dysfunction Noted on echo in 2018 with EF of 40-45% with mild right ventricular enlargement moderate right atrial enlargement severe left atrial enlargement with mild AI/MR and TR but most recent echocardiogram 12/03/2024 demonstrated normal ejection fraction with EF of 55-60% with severe biatrial enlargement and mild pulmonary hypertension. The patient follows with Dr. Carlson Biatrial enlargement Severe Pulmonary hypertension Mild pulmonary hypertension noted on echo 11/2024 Dyslipidemia Emphysema lung Rheumatoid osteoperiostitis Afib (~1981) Surgical History Surgical History Port-A-Cath in place (01/18/25) Right chest History of transurethral resection of bladder tumor (TURBT) (12/17/24) History of colonoscopy with polypectomy History of surgery on arm History of shoulder surgery Family History Family History Sibling Heart disease Skin cancer Father , Age 63 Lymphoma Mother , Age 46 Lung cancer Social History Social History Social History: The patient reports he has been for over 30 years. He does not have any children. He used to smoke drink 4-5 beers a day but quit drinking alcohol altogether in 2021. He smoked up to 1.5 packs of cigarettes per day for about 45 years but quit in 2016. He smokes marijuana daily. Code status: Full code Surrogate decision maker: aGry (brother) Smoking packs per day: 1.5 Smoking cigarettes per day: 30.0 Years smoked: 45 Smoking pack-years: 67.50 Smoking status: Former smoker Tobacco type: cigarettes Second hand tobacco smoke exposure: No Smoking end date: 08/12/16 Alcohol intake: former Drinks per week: 35 Alcohol use details: QUIT 2021 4-5 BEERS DAILY Substance use: current Substance use type: marijuana Other substance usage details: Smoke it 2-3 times a week Last use: 11/30/24 Do You Feel Safe in your Home?: Yes Lack of Transportation: No Lack of Food: Never True Current Housing: I Have Housing Concerned About Future Housing: No Difficulty Paying Gas/Electric Bills: No Difficulty Paying for Meds: No Currently Unemployed: No Education: High School Diploma/GED Difficulty w/ Childcare or Family Care: No Living arrangements: alone Gender identity (if verbalized by the patient): Male Spiritual care concerns: No Anes - Eval Final PreProcedure Day of Procedure 04/15/25 12:15 Patient weight: overweight Heart: irregular rhythm Lungs: decreased breath sounds Airway: Mallampati scale class II Neurological: alert and oriented Last oral intake: >/= 8 hours ASA classification: IV Emergent: no Anesthetic plan: proceed Anesthesia type and monitoring: general LMA and standard monitoring Results Review: All pre-operative results and documents have been reviewed as part of the pre-operative evaluation. Informed Consent: The patient's anesthetic plan and its attendant risks and benefits were discussed with the patient/family/POA. Questions were solicited and answers provided to the satisfaction of the patient/family/POA.
[2025-04-15] MEDS: ceFAZolin 2 GM in SODIUM CHLORIDE 0.9% IV 50 ML 100 ML IVPB (12:48)
[2025-04-15] MEDS: LIDOCAINE 2% GEL UROJET 10 ML PKG MUCOUS MEM (13:19)
[2025-04-15] MEDS: LACTATED RINGERS 1,000 ML 30 ML IV CONT (13:28)
--- NOTE | 2025-04-15 13:32 | W.PM.PROC2 ---
Procedure Note - Detailed Date of Procedure 04/15/25 Pre-op Diagnosis Muscle invasive bladder cancer, bilateral hydronephrosis Post-op Diagnosis Same Procedure Performed Cystoscopy with bilateral ureteral stent exchange, bilateral retrograde pyelogram Surgeon Lon Foster MD Anesthesia General Description of Procedure Patient is brought to the operative suite was prepped draped in routine sterile fashion while in dorsal lithotomy position after the uneventful induction of a general LMA anesthetic. Cystoscopy was undertaken with a 19 F rigid cystoscope. He has no urethral stricture and moderate lateral lobe hyperplasia of the prostate. Bladder shows diffuse hyperemia consistent most likely with stent irritation. There was no obvious nicolasa regrowth of neoplasm. Each ureteral stent is grasped and brought to the external urethral meatus. 0.035 in glidewire end-stage renal pelvis. Retrograde pyelography is undertaken a Harshaw catheter and bilateral 6 F variable length ureteral stents were appropriately positioned with proximal coil in renal pelvis and distal coil in the bladder. Scopes wires removed and was taken recovery room in good condition Pathology None sent Complications No immediate complications
[2025-04-15] MEDS: ACETAMINOPHEN 500 MG TABLET 1000 MG PO (14:54)
--- NOTE | 2025-04-15 15:19 | PCPTNOTE ---
The patient treatment was not able to be completed today due to patient out of the room for procedure in the morning and afternoon. Will plan to continue treatment per plan of care.
[2025-04-16] VITALS (19 sets, daily range): BP systolic 90–94; BP diastolic 44–60; PULSE 93–115; RESP 16–22; TEMP 36.5–36.9; O2SAT 90–94
--- NOTE | 2025-04-16 | ECHO_ITS ---
Patient Info Name: Stanislav Cho Age: 69 years : 1955 Gender: Male Ht: 73 in Wt: 207 lbs BSA: 2.21 m2 HR: 104 bpm BP: 92 / 54 mmHg Technical Quality: Fair Exam Date: 04/16/2025 4:04 PM Patient Status: I Admit Date: 04/11/2025 Exam Type: CA echo doppler color flow Complete two-dimensional, color flow and Doppler transthoracic echocardiogram is performed. Staff Referring Physician: Jessica Taylor Gear Shaper: Amber Isaac Attending Provider: Carmen Gautam DO Summary 1. Complete two-dimensional, color flow and Doppler transthoracic echocardiogram is performed. 2. Left ventricular chamber dimension is normal. 3. Left ventricular systolic function is preserved, estimated at 50-55. 4. The left ventricular diastolic function is normal. 5. E/e' 5 is not elevated. 6. Left atrial chamber dimension is mildly enlarged. 7. There is mild mitral valve regurgitation. 8. There is mild to moderate tricuspid valve regurgitation. 9. No pulmonary hypertension, estimated pulmonary arterial systolic pressure is 34 mmHg. Left Ventricle E/e' 5 is not elevated. Left ventricular chamber dimension is normal. Left ventricular systolic function is preserved, estimated at 50-55. The left ventricular diastolic function is normal. Right Ventricle Right ventricular chamber dimension is normal. Right ventricular systolic function is normal. Left Atria Left atrial chamber dimension is mildly enlarged. Right Atria Right atrial chamber dimension is normal. Aortic Valve The aortic valve is trileaflet. There is no aortic valve stenosis. There is no aortic valve regurgitation. Pulmonic Valve There is no pulmonic regurgitation. Mitral Valve There is no mitral valve stenosis. There is mild mitral valve regurgitation. Tricuspid Valve There is mild to moderate tricuspid valve regurgitation. No pulmonary hypertension, estimated pulmonary arterial systolic pressure is 34 mmHg. Pericardium/Pleural There is no pericardial effusion. Inferior Vena Cava Normal inferior vena cava with >50% collapse upon inspiration consistent with normal right atrial pressure, 5 mmHg. Aorta The aortic root size at the sinus of Valsalva is normal. Left Ventricular Outflow Tract Name Value Normal LVOT 2D LVOT Diameter 2.2 cm LVOT Doppler LVOT Peak Velocity 97 cm/s LVOT Peak Gradient 4 mmHg LVOT Mean Gradient 2 mmHg LVOT VTI 13 cm LVOT VTI/AV VTI Ratio 0.8 LVOT Stroke Volume 51 ml LVOT CO 16.6 l/min LVOT CI 7.5 l/min/m2 Pulmonic Valve Name Value Normal PV Doppler PV Peak Velocity 91 cm/s PV Peak Gradient 3 mmHg Mitral Valve Name Value Normal MV Diastolic Function MV E Peak Velocity 59 cm/s MV A Peak Velocity 3 cm/s MV E/A 23.5 MV Decel Time (PW) 247 ms MV Annular TDI MV E/e' (Septal) 4.7 MV E/e' (Lateral) 6.5 MV E/e' (Average) 5.6 Tricuspid Valve Name Value Normal TV Regurgitation Doppler TR Peak Velocity 271 cm/s TR Peak Gradient 29 mmHg Estimated PAP/RSVP RA Pressure 5 mmHg <=5 PA Systolic Pressure 34 mmHg <36 RV Systolic Pressure 34 mmHg <36 TV Annular TDI TV Lateral Nedra s' Velocity 9.0 cm/s >=9.5 Aorta Name Value Normal Ascending Aorta Ao Root Diameter (MM) 3.8 cm Ao Root Diam Index (MM) 1.7 cm/m2 Aortic Valve Name Value Normal AV Doppler AV Peak Velocity 122 cm/s AV Peak Gradient 6 mmHg AV Mean Gradient 4 mmHg AV VTI 17 cm AV Area (Cont Eq VTI) 3.0 cm2 >=3.0 AV Area (Cont Eq Sergei) 3.0 cm2 AV DI (Sergei) 0.79 AV Regurgitation 2D LVOT Area 3.8 cm2 Ventricles Name Value Normal LV Dimensions 2D/MM IVS Diastolic Thickness (2D) 1.0 cm 0.6-1.0 LVID Diastole (2D) 4.8 cm 4.2-5.8 LVIW Diastolic Thickness (2D) 0.9 cm 0.6-1.0 LVID Systole (2D) 3.6 cm 2.5-4.0 LVOT Diameter 2.2 cm LV Mass (2D Cubed) 156.09 g 88.00-224.00 LV Mass Index (2D Cubed) 71 g/m2 49-115 Relative Wall Thickness (2D) 0.37 <=0.42 LV Fractional Shortening/Ejection Fraction 2D/MM LV Fractional Shortening (2D) 26 % 25-43 LV EF (2D Teichholz) 51 % LV Diastolic Volume (4C MOD) 55 ml LV EF (4C MOD) 46 % LV Diastolic Volume (2C MOD) 118 ml LV EF (2C MOD) 42 % LV Diastolic Volume (BP MOD) 86 ml 62-150 LV Diastolic Volume Index (BP MOD) 39 ml/m2 34-74 LV Systolic Volume (BP MOD) 46 ml 21-61 LV Systolic Volume Index (BP MOD) 21 ml/m2 11-31 LV EF (BP MOD) 46 % 52-72 LV Diastolic Length (4C) 7.1 cm LV Systolic Length (4C) 6.3 cm LV Stroke Volume (4C MOD) 25 ml RV Dimensions 2D/MM RVID Diastole (2D) 3.4 cm 2.1-3.5 Atria Name Value Normal LA Dimensions LA Volume (4C A-L) 66 ml LA Volume (BP A-L) 77 ml RA Dimensions RA Systolic Major [place] Length (4C) 4.9 cm 2.1-2.7 RA Area (4C) 16.6 cm2 <=18.0 Report Signatures
[2025-04-16] MEDS: CENTRAL LINE FLUSH 10 ML IV PUSH ×3 (05:16→21:19)
[2025-04-16 06:10] LABS: Hematocrit 24.3 % (42.0-52.0); Hemoglobin 8.0 g/dL (14.0-18.0); Mean Corpuscular HGB Conc 32.9 g/dl (32-36); Mean Corpuscular Hemoglobin 33.9 pg (26-34); Mean Corpuscular Volume 103.0 fl (80-100); Platelet Count Result 121 k/mm3 (150-375); Red Blood Count 2.36 M/mm3 (4.6-6.20); White Blood Count 6.0 K/mm3 (4.5-10.0)
[2025-04-16 06:31] LABS: Alanine Aminotransferase 18 U/L (6-50); Albumin Level 2.1 g/dL (3.5-5.1); Alkaline Phosphatase 85 U/L (38-126); Anion Gap 6 mmol/L (4-12); Aspartate Amino Transferase 26 U/L (17-59); Bilirubin,Total 0.4 mg/dL (0.2-1.3); Blood Urea Nitrogen 22 mg/dL (9-20); Calcium 7.7 mg/dL (8.4-10.2); Carbon Dioxide 19 mmol/L (22-30); Chloride 107 mmol/L (98-107); Estimated CRCL calculation 51 ml/min; Estimated Glomerular Filt Rate 50; Glucose 103 mg/dL (65-110); Potassium 4.2 mmol/L (3.4-5.0); Sodium 132 mmol/L (137-145); Total Protein 5.3 g/dL (6.3-8.2)
--- NOTE | 2025-04-16 06:52 | P.PNIM_ITS ---
Progress Note: A&P Assessment and Plan (1) Acute respiratory failure with hypoxia: Code(s): J96.01 - Acute respiratory failure with hypoxia Status: Acute Assessment and Plan: - Chest CTA: No pulmonary embolism. Small right and moderate to large left pleural effusions with likely secondary partial collapse of the left lower lobe. Moderate emphysema superimposed mild pulmonary edema. Enlarged from prior CTA from 03/25 - Oxygen supplementation: weaned back to room air, maintain spo2 > 90 - Suspected cause: pleural effusion - see plan below #2 Resolved. (2) Pleural effusion: Code(s): J90 - Pleural effusion, not elsewhere classified Status: Acute Assessment and Plan: - Symptoms: hypoxia requiring 1L NC with noted tachycardia - Chest CTA: No pulmonary embolism. Small right and moderate to large left pleural effusions with likely secondary partial collapse of the left lower lobe. Moderate emphysema superimposed mild pulmonary edema. Enlarged from prior CTA from 03/25 - Echo ordered Echo from 12/03/24 showed normal EF with severely enlarged bilateral atria with mild pulmonary htn - thoracentesis performed on 04/15 with 1L removed, postthora cxr showed small to mod left pleural effusion Although patient remains afebrile, WBC WNL and denies a cough will start on cefepime and Flagyl given ongoing effusion Patient has history of cancer, possible metastasis although no nodules or masses noted on recent imaging. Patient does state history of lung nodules, seen on PET scan. Will obtain echo to also evaluate for cardiac involvement of the effusion - Monitor vital signs, I&Os, BUN/creatinine, daily weights, neuro status and patient is a fall risk - Monitor serum electrolytes, Keep serum Potassium>4 and serum Magnesium>2 and CBC Patient endorsing shortness of breath. Repeat CXR this am showed decreasing small left pleural effusion. Will obtain a repeat CXR in the morning to assess for pleural effusion reaccumulation. If reaccumulation occurs will require a pulmonology consult and possible transfer for VATS procedure vs Pleurx. (3) Atrial fibrillation with RVR: Code(s): I48.91 - Unspecified atrial fibrillation Status: Acute Assessment and Plan: - Likely cause for RVR is acute infection of pyelonephritis - EKG: Atrial fibrillation rate 98 normal QT C4 37 low-voltage QRS extremity leads moderate ST depression in limb leads. - Chadsvasc Score: 1 per cardiology Anticoagulation: Aspirin - Echo 12/03/24: LVEF 55-60% with severely enlarged bilateral atria and mild pu lmonary hypertension Repeat echo ordered - Telemetry - Cardiology consulted Rate is OK right now at 90 bpm, BP is at 95 SBP. On Midodrine 10 mg PO TID to support BP. Rate control to be continued with Digoxin 125 mcg BID, Metoprolol Succinate 50 mg BID, Diltiazem 30 mg BID. Patient that he can either continue current medical therapy or we can transfer to another hospital with EP to control HR or consider AV node ablation/pacemaker implant for his rapid atrial fib. He wants to think about it and discuss with family first. (4) Pyelonephritis: Code(s): N12 - Tubulo-interstitial nephritis, not specified as acute or chronic Status: Acute Assessment and Plan: Abdomen/Pelvis CT 04/09/25 19:36 Mild right hydronephrosis with bilateral intraureteral stents in expected position and Goodwin catheter in the decompressed bladder. There is some urothelial enhancement at the right renal pelvis which raises concern for ascending urinary tract infection and would correlate with urinalysis. 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 The Infectious Disease police radio dispatcher during his last hospitalization recommended that the patient be discharged on linezolid. -urology consulted * High-grade non metastatic muscle invasive bladder cancer being managed with chemoradiation. Ureteral obstruction managed with chronic indwelling ureteral stents which were due to be changed. * s/p cystoscopy with bilateral ureteral stent exchange, bilateral retrograde pyelogram on 04/[address] Foster Goodwin catheter with slight blood tinged urine. (5) Chronic indwelling Goodwin catheter: Code(s): Z97.8 - Presence of other specified devices Status: Acute (6) CKD (chronic kidney disease) stage 3, GFR 30-59 ml/min: Qualifiers: Chronic kidney disease stage 3 subtype: stage 3a (GFR 45-59) Qualified Code(s): N18.31 - Chronic kidney disease, stage 3a Code(s): N18.30 - Chronic kidney disease, stage 3 unspecified Status: Acute Assessment and Plan: Chronic, renal function appears at baseline - avoid nephrotoxic medications - renally dose medications - monitor I/O - continue to monitor renal function (7) Severe protein-calorie malnutrition: Code(s): E43 - Unspecified severe protein-calorie malnutrition Status: Acute Assessment and Plan: dietitian consult ordered prior for nutritional supplement recommendations. Time Spent With Patient Time with patient: 25 - 35 minutes Subjective Date/time seen: 04/16/25 06:52 Interval history: 69-year-old male with a past medical history of emphysema, rheumatoid arthritis, relatively recent diagnosis within the year of atrial fibrillation, chronic kidney disease stage 3, BPH, and recent diagnosis stage II high-grade invasive urothelial carcinoma status post TURBT 12/2024 who presented to the hospital from cancer center due to low blood pressures. Patient is pleasant lying comfortably in bed. He endorses increased shortness of breath at this time but denies any associated cough. Repeat chest x-ray this morning showed a small left pleural effusion following the thoracentesis. Plan to repeat chest x-ray in the morning to assess for possible reaccumulation. Patient continues to be tachycardic despite his cardiac meds. He denies any associated chest pain or palpitations. Cardiology evaluated and no medication changes needed at this time however can consider possible transfer for an ablation with pacemaker placement. Patient wishing to speak with family prior to making this decision. Patient has no other complaints denying nausea/vomiting and abdominal pain. Review of Systems Review of Systems: All systems reviewed & are unremarkable except as noted in HPI and below Exam Narrative: AF HR 96 RR 20 SpO2 94 BP 92/54 General: male in no acute respiratory distress who is nontoxic appearing, lying semi recumbent in bed. HEENT: Normocephalic. Atraumatic. Extraocular movement intact. Sclera clear and anicteric. No facial asymmetry. Chest: Lungs diminishment to auscultation bilaterally L>R. CV: Heart was irregularly irregular rate and rhythm. Abd: Abdomen was soft. Nontender. Nondistended. Positive bowel sounds. : goodwin with bloody urine, no clots Ext: No clubbing, cyanosis, or edema. DP pulses bilaterally. Neuro: Patient is alert and oriented x4. Speech is clear. Objective Data Vital Signs Vital Signs: Vital Signs - 24 hr 04/15/25 07:38 04/15/25 07:40 04/15/25 08:00 Temperature Pulse Rate 95 95 90 Respiratory Rate 20 20 Blood Pressure Pulse Oximetry 91 Oxygen Delivery Room Air Oxygen Flow Rate 04/15/25 08:00 04/15/25 08:31 04/15/25 08:31 Temperature Pulse Rate 95 95 Respiratory Rate Blood Pressure Pulse Oximetry 96 Oxygen Delivery Nasal Cannula Oxygen Flow Rate 1.5 04/15/25 10:22 04/15/25 10:23 04/15/25 11:40 Temperature 97.2 F L 97.4 F L 98.6 F Pulse Rate 104 H 97 88 Respiratory Rate 18 22 H 18 Blood Pressure 96/54 L 90/53 L 83/59 L Pulse Oximetry 91 96 97 Oxygen Delivery Oxygen Flow Rate 04/15/25 13:28 04/15/25 13:40 04/15/25 13:56 Temperature 97.3 F L Pulse Rate 98 84 77 Respiratory Rate 24 H 18 12 Blood Pressure 91/64 L 98/66 L 96/70 L Pulse Oximetry 97 100 98 Oxygen Delivery Simple Face Mask Nasal Cannula Nasal Cannula Oxygen Flow Rate 8 3 3 04/15/25 14:10 04/15/25 14:25 04/15/25 15:00 Temperature 97.2 F L Pulse Rate 72 83 Respiratory Rate 14 18 Blood Pressure 94/60 L 100/60 Pulse Oximetry 97 94 95 Oxygen Delivery Nasal Cannula Room Air Oxygen Flow Rate 3 04/15/25 15:10 04/15/25 16:00 04/15/25 16:51 Temperature 97.1 F L Pulse Rate 93 95 97 Respiratory Rate 18 Blood Pressure 98/56 L Pulse Oximetry 92 Oxygen Delivery Oxygen Flow Rate 04/15/25 16:52 04/15/25 17:40 04/15/25 19:49 Temperature 97.8 F 97.7 F Pulse Rate 97 71 75 Respiratory Rate 18 16 Blood Pressure 110/56 L 95/45 L Pulse Oximetry 98 93 Oxygen Delivery Oxygen Flow Rate 04/15/25 20:00 04/15/25 20:05 04/16/25 00:00 Temperature Pulse Rate 94 103 H Respiratory Rate 20 Blood Pressure Pulse Oximetry Oxygen Delivery Room Air Oxygen Flow Rate 04/16/25 01:38 04/16/25 04:00 04/16/25 04:31 Temperature 98.2 F 98.1 F Pulse Rate 94 93 101 H Respiratory Rate 17 16 Blood Pressure 94/56 L 90/45 L Pulse Oximetry 90 91 Oxygen Delivery Oxygen Flow Rate Intake/Output Intake/Output: Intake & Output 04/13/25 04/14/25 04/15/25 04/16/25 23:59 23:59 23:59 23:59 Intake Total 1930 2300 390 250 Output Total 1800 1775 1900 500 Balance 130 525 -1510 -250 Meds/Results Medications: Active Medications Generic Name Dose Route Start Last Admin Trade Name Freq PRN Reason Stop Dose Admin Acetaminophen 1,000 mg 04/09/25 23:47 04/15/25 14:54 Acetaminophen 500 Mg Tablet PO 1,000 mg Q6H PRN Administration pain 1-3 or fever Aspirin 325 mg 04/10/25 09:00 04/14/25 09:00 Aspirin 325 Mg Enteric Tablet PO 325 mg On Hold: 04/15/25 09:00 DAILY BANG Administration Resume: 04/16/25 09:00 Comment: Hold for thoracentesis Atorvastatin Calcium 40 mg 04/10/25 09:00 04/15/25 08:31 Atorvastatin 40 Mg Tablet PO 40 mg DAILY BANG Administration Digoxin 125 mcg 04/09/25 23:50 04/15/25 16:51 Digoxin Tab 125 Mcg Tablet PO 125 mcg BID BANG Administration Diltiazem HCl 30 mg 04/09/25 23:50 04/15/25 16:52 Diltiazem Hcl 30 Mg Tablet PO 30 mg BID BANG Administration Heparin Sodium (Beef Lung) 50 units 04/12/25 09:00 04/14/25 09:01 Heparin Flush 50 Units/5 Ml Syringe IV PUSH 50 units On Hold: 04/15/25 09:00 QAM BANG Administration Heparin Sodium (Beef Lung) 50 units 04/12/25 08:44 Heparin Flush 50 Units/5 Ml Syringe IV PUSH PRN PRN after intermittent infusion Heparin Sodium (Beef Lung) 50 units 04/12/25 08:44 04/13/25 06:28 Heparin Flush 50 Units/5 Ml Syringe IV PUSH 50 units PRN PRN Administration after blood draws Heparin Sodium (Porcine) 500 units 04/12/25 08:44 Heparin Sodium Lock Flush 500 Units/5 Ml Syringe IV PUSH PRN PRN see comments below Hydromorphone HCl 0.25 mg 04/15/25 12:16 Hydromorphone Hcl Inj (*Crx) 1 Mg/Ml Syr IV PUSH Q5M PRN Pain Lactated Ringer's 1,000 mls @ 30 mls/hr 04/15/25 12:20 04/15/25 14:11 Lr - Lactated Ringers Iv IV CONT Infused .Q24H BANG Infusion Lactated Ringer's 1,000 mls @ 30 mls/hr 04/15/25 12:20 04/15/25 16:50 Lr - Lactated Ringers Iv IV CONT Not Given .Q24H BANG Linezolid 600 mg 04/10/25 09:00 04/15/25 20:52 Linezolid 600 Mg Tablet PO 600 mg Q12HR BANG Administration Metoprolol Succinate 50 mg 04/09/25 23:50 04/15/25 16:52 Metoprolol Succinate Ext Rel 50 Mg Tabcr PO 50 mg BID BANG Administration Midodrine 10 mg 04/10/25 09:00 04/15/25 16:52 Midodrine Hcl 10 Mg Tablet PO 10 mg TID BANG Administration Ondansetron HCl 4 mg 04/09/25 23:50 04/13/25 16:17 Ondansetron Inj 4 Mg/2 Ml Vial IV PUSH 4 mg Q6H PRN Administration Nausea And Vomiting Ondansetron HCl 4 mg 04/15/25 12:16 Ondansetron Inj 4 Mg/2 Ml Vial IV PUSH ONCE PRN Nausea Fluticasone/Salmeterol 2 puff 04/10/25 08:00 04/15/25 20:02 Fluticasone/Salmeterol 115-21 Mcg Inhaler 1 Puff INHALATION 2 puff Q12HRT BANG Administration Sodium Chloride 10 ml 04/12/25 14:00 04/16/25 05:16 Central Line Flush IV PUSH 10 ml Q8HR BANG Administration Tamsulosin HCl 0.8 mg 04/10/25 09:00 04/15/25 08:26 Tamsulosin Hcl 0.4 Mg Capsule PO 0.8 mg QAM BANG Administration Vitamin D 50 mcg 04/10/25 09:00 04/15/25 08:30 Cholecalciferol (Vitamin D3) 25 Mcg (1,000 Units) Tablet PO 50 mcg DAILY BANG Administration Radiology Results: ITS Impressions Abdomen/Pelvis CT 04/09/25 19:36 IMPRESSION: 1. Moderate emphysema with bronchial wall thickening and superimposed smooth septal line thickening and groundglass opacities in the bilateral lower lungs most likely pulmonary edema although differential would include pneumonia. 2. Moderate-sized left and small right pleural effusions. 3. Mild right hydronephrosis with bilateral intraureteral stents in expected pos ition and Goodwin catheter in the decompressed bladder. There is some urothelial enhancement at the right renal pelvis which raises concern for ascending urinary tract infection and would correlate with urinalysis. Chest CTA 04/14/25 11:33 IMPRESSION: 1. No pulmonary embolism. 2. Small right and moderate to large left pleural effusions with likely secondary partial collapse of the left lower lobe. 3. Moderate emphysema superimposed mild pulmonary edema. 4. Likely tricuspid regurgitation with reflux of contrast into the inferior vena cava and right hepatic vein. 5. Unchanged mild right hydronephrosis. Thoracentesis Ultrasound 04/15/25 12:03 IMPRESSION: 1. Successful ultrasound-guided thoracentesis yielding 1000 mL of light reddish/cranberry colored fluid. Ureter Stent X-Ray 04/15/25 14:02 IMPRESSION: 1. Bilateral internal ureteral stent exchange. Please refer to real-time procedural findings for details. Labs Labs: Laboratory Results - last 24 hr 04/15/25 04/15/25 04/16/25 09:14 09:40 05:58 WBC 6.0 RBC 2.36 L Hgb 8.0 L Hct 24.3 L MCV 103.0 H MCH 33.9 MCHC 32.9 RDW 15.1 H Plt Count 121 L MPV 10.5 H Sodium 132 L Potassium 4.2 Chloride 107 Carbon Dioxide 19 L Anion Gap 6 BUN 22 H Creatinine 1.42 H Estim Creat Clear Calc 51 Estimated GFR 50 L Glucose 103 Calcium 7.7 L Total Bilirubin 0.4 AST 26 ALT 18 Alkaline Phosphatase 85 Total Protein 5.3 L Albumin 2.1 L Pleural Fluid Source Pleural fluid Pleural Color Red Pleural Appearance Cloudy Pleural pH 7.470 Pleural RBC < 2000 Pleural Nuc Cells 650 Pleural Lymphocytes 88 Pleural Monocytes 1 Pleural Macrophages 10 Pleural Mesothelial 1 Pleural Total Protein Cancelled Quality VTE Prophylaxis VTE prophylaxis: mechanical ordered (SCDs)
[2025-04-16] MEDS: FLUTICASONE/SALMETEROL 115-21 MCG INHALER 1 PUFF 2 PUFF INHALATION ×2 (07:56→19:38)
[2025-04-16] MEDS: CHOLECALCIFEROL (VITAMIN D3) 25 MCG (1,000 UNITS) TABLET 50 MCG PO (08:34)
[2025-04-16] MEDS: METOPROLOL SUCCINATE EXT REL 50 MG TABCR PO ×2 (08:34→16:23)
[2025-04-16] MEDS: MIDODRINE HCL 10 MG TABLET PO ×3 (08:34→16:22)
[2025-04-16] MEDS: TAMSULOSIN HCL 0.4 MG CAPSULE 0.8 MG PO (08:35)
[2025-04-16] MEDS: DIGOXIN TAB 125 MCG TABLET PO ×2 (08:35→16:22)
[2025-04-16] MEDS: ATORVASTATIN 40 MG TABLET PO (08:35)
[2025-04-16] MEDS: LINEZOLID 600 MG TABLET PO (08:35)
--- NOTE | 2025-04-16 08:56 | ECG_ITS ---
Test Date: 2025-04-16 09:24:00 Measurements Intervals [place] Rate: 110 P: 0 VT: 0 QRS: -10 QRSD: 84 T: -75 QT: 268 QTc: 363 Interpretive Statements ATRIAL FIBRILLATION WITH RAPID VENTRICULAR RESPONSE LOW QRS VOLTAGE IN EXTREMITY LEADS [QRS DEFLECTION < 0.5 mV IN LIMB LEADS] NONSPECIFIC ST & T-WAVE ABNORMALITY Compared to ECG 04/09/2025 20:21:42 NO SIGNIFICANT CHANGES Electronically Signed On 04-16-2025 12:39:37 CDT by Joaquin Solo M.D.
[2025-04-16] MEDS: ASPIRIN 325 MG ENTERIC TABLET PO (10:17)
[2025-04-16] MEDS: CEFEPIME 2 GM in SODIUM CHLORIDE 0.9% IV 50 ML 100 ML IVPB ×2 (10:17→20:31)
--- NOTE | 2025-04-16 11:11 | ECG_ITS ---
Test Date: 2025-04-16 11:28:05 Measurements Intervals [place] Rate: 104 P: 0 ND: 0 QRS: 19 QRSD: 88 T: 240 QT: 278 QTc: 366 Interpretive Statements ATRIAL FIBRILLATION WITH RAPID VENTRICULAR RESPONSE LOW QRS VOLTAGE IN EXTREMITY LEADS [QRS DEFLECTION < 0.5 mV IN LIMB LEADS] ST DEVIATION AND MODERATE T-WAVE ABNORMALITY, CONSIDER ANTERIOR ISCHEMIA [-0.1+ mV T-WAVE IN V3/V4] Compared to ECG 04/16/2025 09:24:00 Possible ischemia now present T-wave abnormality still present Electronically Signed On 04-16-2025 12:44:19 CDT by Joaquin Solo M.D.
--- NOTE | 2025-04-16 12:12 | PCPTNOTE ---
The patient treatment was not able to be completed today. STELLA Tran advised to hold PT today due to patient having SOB and increased HR with minimal activity. Will plan to continue treatment per plan of care.
--- NOTE | 2025-04-16 12:34 | P.PNCA_ITS ---
Progress Note: A&P Assessment and Plan (1) Afib: Onset Date: ~1981 Code(s): I48.91 - Unspecified atrial fibrillation Status: Acute Assessment and Plan: Chronic. [id number] 1. On aspirin. Rate controlled with Digoxin, Metoprolol and Diltiazem. Rate is OK right now at 90 bpm, BP is at 95 SBP. On Midodrine 10 mg PO TID to support BP. Rate control to be continued with Digoxin 125 mcg BID, Metoprolol Succinate 50 mg BID, Diltiazem 30 mg BID. Discuss with hospitalist and with patient that he can either continue current medical therapy or we can transfer to another hospital with EP to control HR or consider AV node ablation/pacemaker implant for his rapid atrial fib. He wants to think about it and discuss with family first. No further cardiac workup, please call with any questions. (2) Bladder cancer: Code(s): C67.9 - Malignant neoplasm of bladder, unspecified Status: Acute Assessment and Plan: Followed by oncology and urology. Subjective Date/time seen: 04/16/25 12:34 Interval history: States he noted HR spiking when he gets up to use restroom to 190 bpm. Denies chest pain or sob. Exam Const: General: cooperative, healthy appearing and comfortable Orienta tion/consciousness: oriented to person, oriented to place and oriented to time Resp: Auscultation: clear to auscultation bilaterally, no crackles, no rales, no rhonchi and no wheezes Cardio: Rate: regular rate Rhythm: abnormal rhythm Heart sounds: no murmurs Peripheral pulses: dorsalis pedis present Neuro: General: oriented to person, oriented to place and oriented to time Extrem: Right lower extremity: no edema Left lower extremity: no edema Objective Data Vital Signs Vital Signs: Vital Signs - 24 hr 04/15/25 13:28 04/15/25 13:40 04/15/25 13:56 Temperature 97.3 F L Pulse Rate 98 84 77 Respiratory Rate 24 H 18 12 Blood Pressure 91/64 L 98/66 L 96/70 L Pulse Oximetry 97 100 98 Oxygen Delivery Simple Face Mask Nasal Cannula Nasal Cannula Oxygen Flow Rate 8 3 3 04/15/25 14:10 04/15/25 14:25 04/15/25 15:00 Temperature 97.2 F L Pulse Rate 72 83 Respiratory Rate 14 18 Blood Pressure 94/60 L 100/60 Pulse Oximetry 97 94 95 Oxygen Delivery Nasal Cannula Room Air Oxygen Flow Rate 3 04/15/25 15:10 04/15/25 16:00 04/15/25 16:51 Temperature 97.1 F L Pulse Rate 93 95 97 Respiratory Rate 18 Blood Pressure 98/56 L Pulse Oximetry 92 Oxygen Delivery Oxygen Flow Rate 04/15/25 16:52 04/15/25 17:40 04/15/25 19:49 Temperature 97.8 F 97.7 F Pulse Rate 97 71 75 Respiratory Rate 18 16 Blood Pressure 110/56 L 95/45 L Pulse Oximetry 98 93 Oxygen Delivery Oxygen Flow Rate 04/15/25 20:00 04/15/25 20:05 04/16/25 00:00 Temperature Pulse Rate 94 103 H Respiratory Rate 20 Blood Pressure Pulse Oximetry Oxygen Delivery Room Air Oxygen Flow Rate 04/16/25 01:38 04/16/25 04:00 04/16/25 04:31 Temperature 98.2 F 98.1 F Pulse Rate 94 93 101 H Respiratory Rate 17 16 Blood Pressure 94/56 L 90/45 L Pulse Oximetry 90 91 Oxygen Delivery Oxygen Flow Rate 04/16/25 07:56 04/16/25 08:00 04/16/25 08:34 Temperature Pulse Rate 97 115 H Respiratory Rate 20 Blood Pressure Pulse Oximetry Oxygen Delivery Oxygen Flow Rate 04/16/25 08:35 04/16/25 08:37 04/16/25 10:00 Temperature 98.3 F Pulse Rate 115 H 96 Respiratory Rate 20 Blood Pressure 92/54 L Pulse Oximetry 94 Oxygen Delivery Room Air Oxygen Flow Rate 04/16/25 12:00 Temperature Pulse Rate 103 H Respiratory Rate Blood Pressure Pulse Oximetry Oxygen Delivery Oxygen Flow Rate Intake/Output Intake/Output: Intake & Output 04/13/25 04/14/25 04/15/25 04/16/25 23:59 23:59 23:59 23:59 Intake Total 1930 2300 390 730 Output Total 1800 1775 1900 500 Balance 130 525 -1510 230 Meds/Results Medications: Active Medications Generic Name Dose Route Start Last Admin Trade Name Freq PRN Reason Stop Dose Admin Acetaminophen 1,000 mg 04/09/25 23:47 04/15/25 14:54 Acetaminophen 500 Mg Tablet PO 1,000 mg Q6H PRN Administration pain 1-3 or fever Aspirin 325 mg 04/10/25 09:00 04/16/25 10:17 Aspirin 325 Mg Enteric Tablet PO 325 mg DAILY BANG Administration Atorvastatin Calcium 40 mg 04/10/25 09:00 04/16/25 08:35 Atorvastatin 40 Mg Tablet PO 40 mg DAILY BANG Administration Digoxin 125 mcg 04/09/25 23:50 04/16/25 08:35 Digoxin Tab 125 Mcg Tablet PO 125 mcg BID BANG Administration Diltiazem HCl 30 mg 04/09/25 23:50 04/16/25 08:34 Diltiazem Hcl 30 Mg Tablet PO 30 mg BID BANG Administration Heparin Sodium (Beef Lung) 50 units 04/12/25 09:00 04/14/25 09:01 Heparin Flush 50 Units/5 Ml Syringe IV PUSH 50 units On Hold: 04/15/25 09:00 QAM BANG Administration Heparin Sodium (Beef Lung) 50 units 04/12/25 08:44 Heparin Flush 50 Units/5 Ml Syringe IV PUSH PRN PRN after intermittent infusion Heparin Sodium (Beef Lung) 50 units 04/12/25 08:44 04/13/25 06:28 Heparin Flush 50 Units/5 Ml Syringe IV PUSH 50 units PRN PRN Administration after blood draws Heparin Sodium (Porcine) 500 units 04/12/25 08:44 Heparin Sodium Lock Flush 500 Units/5 Ml Syringe IV PUSH PRN PRN see comments below Hydromorphone HCl 0.25 mg 04/15/25 12:16 Hydromorphone Hcl Inj (*Crx) 1 Mg/Ml Syr IV PUSH Q5M PRN Pain Lactated Ringer's 1,000 mls @ 30 mls/hr 04/15/25 12:20 04/16/25 11:13 Lr - Lactated Ringers Iv IV CONT Not Given .Q24H BANG Lactated Ringer's 1,000 mls @ 30 mls/hr 04/15/25 12:20 04/16/25 11:13 Lr - Lactated Ringers Iv IV CONT Not Given .Q24H BANG Cefepime HCl 2 gm/ Sodium 50 mls @ 100 mls/hr 04/16/25 09:45 04/16/25 10:17 Chloride IVPB 100 mls/hr Q12HR BANG Administration Metoprolol Succinate 50 mg 04/09/25 23:50 04/16/25 08:34 Metoprolol Succinate Ext Rel 50 Mg Tabcr PO 50 mg BID BANG Administration Metronidazole 500 mg 04/16/25 10:00 04/16/25 10:17 Metronidazole 500 Mg Tablet PO 500 mg Q8HR BANG Administration Midodrine 10 mg 04/10/25 09:00 04/16/25 12:28 Midodrine Hcl 10 Mg Tablet PO 10 mg TID BANG Administration Ondansetron HCl 4 mg 04/09/25 23:50 04/13/25 16:17 Ondansetron Inj 4 Mg/2 Ml Vial IV PUSH 4 mg Q6H PRN Administration Nausea And Vomiting Ondansetron HCl 4 mg 04/15/25 12:16 Ondansetron Inj 4 Mg/2 Ml Vial IV PUSH ONCE PRN Nausea Fluticasone/Salmeterol 2 puff 04/10/25 08:00 04/16/25 07:56 Fluticasone/Salmeterol 115-21 Mcg Inhaler 1 Puff INHALATION 2 puff Q12HRT BANG Administration Sodium Chloride 10 ml 04/12/25 14:00 04/16/25 12:29 Central Line Flush IV PUSH 10 ml Q8HR BANG Administration Tamsulosin HCl 0.8 mg 04/10/25 09:00 04/16/25 08:35 Tamsulosin Hcl 0.4 Mg Capsule PO 0.8 mg QAM BANG Administration Vitamin D 50 mcg 04/10/25 09:00 04/16/25 08:34 Cholecalciferol (Vitamin D3) 25 Mcg (1,000 Units) Tablet PO 50 mcg DAILY BANG Administration Radiology Results: ITS Impressions Abdomen/Pelvis CT 04/09/25 19:36 IMPRESSION: 1. Moderate emphysema with bronchial wall thickening and superimposed smooth septal line thickening and groundglass opacities in the bilateral lower lungs most likely pulmonary edema although differential would include pneumonia. 2. Moderate-sized left and small right pleural effusions. 3. Mild right hydronephrosis with bilateral intraureteral stents in expected position and Myers catheter in the decompressed bladder. There is some urothelial enhancement at the right renal pelvis which raises concern for ascending urinary tract infection and would correlate with urinalysis. Chest CTA 04/14/25 11:33 IMPRESSION: 1. No pulmonary embolism. 2. Small right and moderate to large left pleural effusions with likely secondary partial collapse of the left lower lobe. 3. Moderate emphysema superimposed mild pulmonary edema. 4. Likely tricuspid regurgitation with reflux of contrast into the inferior vena cava and right hepatic vein. 5. Unchanged mild right hydronephrosis. Thoracentesis Ultrasound 04/15/25 12:03 IMPRESSION: 1. Successful ultrasound-guided thoracentesis yielding 1000 mL of light reddish/cranberry colored fluid. Ureter Stent X-Ray 04/15/25 14:02 IMPRESSION: 1. Bilateral internal ureteral stent exchange. Please refer to real-time procedural findings for details. Chest X-Ray 04/16/25 08:46 IMPRESSION: 1. Decreasing small left pleural effusion with improving atelectasis and/or pn eumonia at the left lung base. 2. Emphysema with persistent diffuse increased interstitial pattern which could represent mild pulmonary edema and/or chronic interstitial lung disease. Labs Labs: Laboratory Results - last 24 hr 04/16/25 05:58 WBC 6.0 RBC 2.36 L Hgb 8.0 L Hct 24.3 L MCV 103.0 H MCH 33.9 MCHC 32.9 RDW 15.1 H Plt Count 121 L MPV 10.5 H Sodium 132 L Potassium 4.2 Chloride 107 Carbon Dioxide 19 L Anion Gap 6 BUN 22 H Creatinine 1.42 H Estim Creat Clear Calc 51 Estimated GFR 50 L Glucose 103 Calcium 7.7 L Total Bilirubin 0.4 AST 26 ALT 18 Alkaline Phosphatase 85 Total Protein 5.3 L Albumin 2.1 L
--- NOTE | 2025-04-16 12:43 | PC.NURSE ---
RN called lab to check on the uncollected gram stain from thoracentesis.
--- NOTE | 2025-04-16 13:09 | WPDANESPN ---
Anes - Prog Note Post-Op Date/Time: 04/16/25 13:09 Vital Signs: Last Vital Signs Temp 98.3 F 04/16/25 10:00 Pulse 103 H 04/16/25 12:00 Resp 20 04/16/25 10:00 BP 92/54 L 04/16/25 10:00 Pulse Ox 94 04/16/25 10:00 O2 Del Method Room Air 04/16/25 08:37 O2 Flow Rate 3 04/15/25 14:10 FiO2 24 04/14/25 19:41 Pain Score (VAS): 0/10 I/O: Intake & Output 04/15/25 04/16/25 04/16/25 23:59 07:59 15:59 Intake Total 240 250 480 Output Total 300 500 Balance -60 -250 480 Laboratory Tests 04/16/25 05:58 04/16/25 05:58 04/16/25 05:58 WBC 6.0 RBC 2.36 L Hgb 8.0 L Hct 24.3 L MCV 103.0 H MCH 33.9 MCHC 32.9 RDW 15.1 H Plt Count 121 L MPV 10.5 H Sodium 132 L Potassium 4.2 Chloride 107 Carbon Dioxide 19 L Anion Gap 6 BUN 22 H Creatinine 1.42 H Estim Creat Clear Calc 51 Estimated GFR 50 L Glucose 103 Calcium 7.7 L Total Bilirubin 0.4 AST 26 ALT 18 Alkaline Phosphatase 85 Total Protein 5.3 L Albumin 2.1 L Microbiology 04/09/25 19:22 Blood Blood Culture - Final 04/09/25 19:20 Blood Blood Culture - Final Patient Feedback: Patient satisfied with anesthetic care.
[2025-04-16 16:08] LABS: Albumin, Body Fluid 1.4 g/dL (Not Estab.); Glucose, Body Fluid 83 mg/dL (.); LD, Body Fluid 203 IU/L (.); Triglycerides, Body Fluid 20 mg/dL (Not Estab.)
[2025-04-16] MEDS: ACETAMINOPHEN 500 MG TABLET 1000 MG PO (20:29)
[2025-04-17] VITALS (16 sets, daily range): BP systolic 90–110; BP diastolic 50–60; PULSE 53–105; RESP 18–22; TEMP 36.4–37.2; O2SAT 90–94
[2025-04-17] MEDS: CENTRAL LINE FLUSH 10 ML IV PUSH ×3 (06:06→21:32)
[2025-04-17 06:25] LABS: Hematocrit 24.2 % (42.0-52.0); Hemoglobin 7.9 g/dL (14.0-18.0); Mean Corpuscular HGB Conc 32.6 g/dl (32-36); Mean Corpuscular Hemoglobin 33.9 pg (26-34); Mean Corpuscular Volume 103.9 fl (80-100); Platelet Count Result 104 k/mm3 (150-375); Red Blood Count 2.33 M/mm3 (4.6-6.20); White Blood Count 5.4 K/mm3 (4.5-10.0)
[2025-04-17 06:39] LABS: Alanine Aminotransferase 14 U/L (6-50); Albumin Level 2.1 g/dL (3.5-5.1); Alkaline Phosphatase 81 U/L (38-126); Anion Gap 3 mmol/L (4-12); Aspartate Amino Transferase 21 U/L (17-59); Bilirubin,Total 0.2 mg/dL (0.2-1.3); Blood Urea Nitrogen 27 mg/dL (9-20); Calcium 7.6 mg/dL (8.4-10.2); Carbon Dioxide 22 mmol/L (22-30); Chloride 107 mmol/L (98-107); Estimated CRCL calculation 52 ml/min; Estimated Glomerular Filt Rate 51; Glucose 90 mg/dL (65-110); Potassium 4.2 mmol/L (3.4-5.0); Sodium 132 mmol/L (137-145); Total Protein 5.2 g/dL (6.3-8.2)
[2025-04-17] MEDS: FLUTICASONE/SALMETEROL 115-21 MCG INHALER 1 PUFF 2 PUFF INHALATION ×2 (07:53→20:51)
--- NOTE | 2025-04-17 07:56 | PM.IMPN ---
Progress Note: A&P Assessment and Plan (1) Acute respiratory failure with hypoxia: Code(s): J96.01 - Acute respiratory failure with hypoxia Status: Acute Assessment and Plan: - Chest CTA: No pulmonary embolism. Small right and moderate to large left pleural effusions with likely secondary partial collapse of the left lower lobe. Moderate emphysema superimposed mild pulmonary edema. Enlarged from prior CTA from 03/25 - Oxygen supplementation: weaned back to room air, maintain spo2 > 90 - Suspected cause: pleural effusion - see plan below #2 Resolved. (2) Pleural effusion: Code(s): J90 - Pleural effusion, not elsewhere classified Status: Acute Assessment and Plan: - Symptoms: hypoxia requiring 1L NC with noted tachycardia - Chest CTA: No pulmonary embolism. Small right and moderate to large left pleural effusions with likely secondary partial collapse of the left lower lobe. Moderate emphysema superimposed mild pulmonary edema. Enlarged from prior CTA from 03/25 - Echo ordered Echo from 12/03/24 showed normal EF with severely enlarged bilateral atria with mild pulmonary htn - thoracentesis performed on 04/15 with 1L removed, postthora cxr showed small to mod left pleural effusion Although patient remains afebrile, WBC WNL and denies a cough will start on cefepime and Flagyl given ongoing effusion Patient has history of cancer, possible metastasis although no nodules or masses noted on recent imaging. Patient does state history of lung nodules, seen on PET scan. Will obtain echo to also evaluate for cardiac involvement of the effusion - Monitor vital signs, I&Os, BUN/creatinine, daily weights, neuro status and patient is a fall risk - Monitor serum electrolytes, Keep serum Potassium>4 and serum Magnesium>2 and CBC Patient endorsing shortness of breath. Repeat CXR this am showed decreasing small left pleural effusion. Will obtain a repeat CXR in the morning to assess for pleural effusion reaccumulation. No reaccumulation noted. Per lights criteria the effusion is likely exudative, increase concern for metastatic. Awaiting gram stain and culture results. Discussed patient with pulmonology Dr. Miner in regards to patients pleural effusion care. She states that there is increased concern that this is likely metastatic given the cell counts and that the fluid appearance being red. She is in agreement with transfer, though transfer is to [place] [facility] the technician helper instrument is aware of the pleural effusion. (3) Atrial fibrillation with RVR: Code(s): I48.91 - Unspecified atrial fibrillation Status: Acute Assessment and Plan: - Likely cause for RVR is acute infection of pyelonephritis - EKG: Atrial fibrillation rate 98 normal QT C4 37 low-voltage QRS extremity leads moderate ST depression in limb leads. - Chadsvasc Score: 1 per cardiology Anticoagulation: Aspirin - Echo 12/03/24: LVEF 55-60% with severely enlarged bilateral atria and mild pulmonary hypertension Repeat echo ordered - Telemetry - Cardiology consulted Rate is OK right now at 90 bpm, BP is at 95 SBP. On Midodrine 10 mg PO TID to support BP. Rate control to be continued with Digoxin 125 mcg BID, Metoprolol Succinate 50 mg BID, Diltiazem 30 mg BID. Patient that he can either continue current medical therapy or we can transfer to another hospital with EP to control HR or consider AV node ablation/pacemaker implant for his rapid atrial fib. He wants to think about it and discuss with family first. Patient has acceptance at [facility], accepting physician is Dr. Ashford Cardiology. Awaiting bed. (4) Pyelonephritis: Code(s): N12 - Tubulo-interstitial nephritis, not specified as acute or chronic Status: Acute Assessment and Plan: Abdomen/Pelvis CT 04/09/25 19:36 Mild right hydronephrosis with bilateral intraureteral stents in expected position and Goodwin catheter in the decompressed bladder. There is some urothelial enhancement at the right renal pelvis which raises concern for ascending urinary tract infection and would correlate with urinalysis. 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 The Infectious Disease fire loss prevention engineer during his last hospitalization recommended that the patient be discharged on linezolid. -urology consulted High-grade non metastatic muscle invasive bladder cancer being managed with chemoradiation. Ureteral obstruction managed with chronic indwelling ureteral stents which were due to be changed. s/p cystoscopy with bilateral ureteral stent exchange, bilateral retrograde pyelogram on 04/[address] Foster Goodwin catheter with slight blood tinged urine. (5) Chronic indwelling Goodwin catheter: Code(s): Z97.8 - Presence of other specified devices Status: Acute (6) CKD (chronic kidney disease) stage 3, GFR 30-59 ml/min: Qualifiers: Chronic kidney disease stage 3 subtype: stage 3a (GFR 45-59) Qualified Code(s): N18.31 - Chronic kidney disease, stage 3a Code(s): N18.30 - Chronic kidney disease, stage 3 unspecified Status: Acute Assessment and Plan: Chronic, renal function appears at baseline - avoid nephrotoxic medications - renally dose medications - monitor I/O - continue to monitor renal function (7) Severe protein-calorie malnutrition: Code(s): E43 - Unspecified severe protein-calorie malnutrition Status: Acute Assessment and Plan: dietitian consult ordered prior for nutritional supplement recommendations. Time Spent With Patient Time with patient: 25 - 35 minutes Subjective Date/time seen: 04/17/25 07:56 Interval history: 69-year-old male with a past medical history of emphysema, rheumatoid arthritis, relatively recent diagnosis within the year of atrial fibrillation, chronic kidney disease stage 3, BPH, and recent diagnosis stage II high-grade invasive urothelial carcinoma status post TURBT 12/2024 who presented to the hospital from cancer center due to low blood pressures. Patient is sitting up comfortably in bed. He continues to endorse intermittent shortness of breath worse with position changes in the bed. He continues to be tachycardic into the 110s to 120s while lying in bed despite being on his cardiac meds. He denies any chest pain or palpitations. Patient does note intermittent dizziness with position changes in bed however blood pressures remain stable at this time. Patient has no other complaints denying nausea/vomiting and abdominal pain. Patient is agreeable to transfer for a possible AV node ablation/pacemaker insertion. Call made to [facility] and [facility] transfer centers. Patient has acceptance at [facility], accepting physician is Dr. Ashford Card[facility]. Discussed patient with pulmonology Dr. Miner in regards to patients pleural effusion care. She states that there is increased concern that this is likely metastatic given the cell counts and that the fluid appearance being red. She is in agreement with transfer, though transfer is to [place] [facility] the technician helper instrument is aware of the pleural effusion. Review of Systems Review of Systems: All systems reviewed & are unremarkable except as noted in HPI and below Exam Narrative: AF HR 105 RR 21 SpO2 93 BP 92/59 General: male in no acute respiratory distress who is nontoxic appearing, sitting up in bed. HEENT: Normocephalic. Atraumatic. Extraocular movement intact. Sclera clear and anicteric. No facial asymmetry. Chest: Lungs diminishment to auscultation bilaterally L>R. CV: Heart was irregularly irregular rate and rhythm. Abd: Abdomen was soft. Nontender. Nondistended. Positive bowel sounds. : goodwin with bloody urine, no clots Ext: No clubbing, cyanosis, or edema. DP pulses bilaterally. Neuro: Patient is alert and oriented x4. Speech is clear. Objective Data Vital Signs Vital Signs: Vital Signs - 24 hr 04/16/25 08:00 04/16/25 08:34 04/16/25 08:35 Temperature Pulse Rate 97 115 H 115 H Respiratory Rate Blood Pressure Pulse Oximetry Oxygen Delivery 04/16/25 08:37 04/16/25 10:00 04/16/25 12:00 Temperature 98.3 F Pulse Rate 96 103 H Respiratory Rate 20 Blood Pressure 92/54 L Pulse Oximetry 94 Oxygen Delivery Room Air 04/16/25 14:00 04/16/25 16:03 04/16/25 16:22 Temperature 97.7 F Pulse Rate 105 H 94 98 Respiratory Rate 22 H Blood Pressure 90/44 L Pulse Oximetry 92 Oxygen Delivery 04/16/25 16:23 04/16/25 18:00 04/16/25 19:42 Temperature 98.2 F Pulse Rate 98 99 Respiratory Rate 20 Blood Pressure 91/48 L Pulse Oximetry 94 93 Oxygen Delivery Room Air 04/16/25 19:50 04/16/25 20:20 04/16/25 20:20 Temperature 98.5 F Pulse Rate 97 109 H Respiratory Rate 20 Blood Pressure 90/60 L Pulse Oximetry 94 Oxygen Delivery Room Air 04/16/25 23:24 04/17/25 00:00 04/17/25 03:00 Temperature 98.4 F 97.6 F Pulse Rate 95 87 99 Respiratory Rate 20 20 Blood Pressure 90/60 L 90/60 L Pulse Oximetry 91 93 Oxygen Delivery 04/17/25 04:00 Temperature Pulse Rate 81 Respiratory Rate Blood Pressure Pulse Oximetry Oxygen Delivery Intake/Output Intake/Output: Intake & Output 04/14/25 04/15/25 04/16/25 04/17/25 23:59 23:59 23:59 23:59 Intake Total 2300 390 1810 500 Output Total 1775 1900 500 850 Balance 525 -1510 1310 -350 Meds/Results Medications: Active Medications Generic Name Dose Route Start Last Admin Trade Name Freq PRN Reason Stop Dose Admin Acetaminophen 1,000 mg 04/09/25 23:47 04/16/25 20:29 Acetaminophen 500 Mg Tablet PO 1,000 mg Q6H PRN Administration pain 1-3 or fever Aspirin 325 mg 04/10/25 09:00 04/16/25 10:17 Aspirin 325 Mg Enteric Tablet PO 325 mg DAILY BANG Administration Atorvastatin Calcium 40 mg 04/10/25 09:00 04/16/25 08:35 Atorvastatin 40 Mg Tablet PO 40 mg DAILY BANG Administration Digoxin 125 mcg 04/09/25 23:50 04/16/25 16:22 Digoxin Tab 125 Mcg Tablet PO 125 mcg BID BANG Administration Diltiazem HCl 30 mg 04/09/25 23:50 04/16/25 16:22 Diltiazem Hcl 30 Mg Tablet PO 30 mg BID BANG Administration Heparin Sodium (Beef Lung) 50 units 04/12/25 09:00 04/14/25 09:01 Heparin Flush 50 Units/5 Ml Syringe IV PUSH 50 units On Hold: 04/15/25 09:00 QAM BANG Administration Heparin Sodium (Beef Lung) 50 units 04/12/25 08:44 Heparin Flush 50 Units/5 Ml Syringe IV PUSH PRN PRN after intermittent infusion Heparin Sodium (Beef Lung) 50 units 04/12/25 08:44 04/17/25 06:05 Heparin Flush 50 Units/5 Ml Syringe IV PUSH 50 units PRN PRN Administration after blood draws Heparin Sodium (Porcine) 500 units 04/12/25 08:44 Heparin Sodium Lock Flush 500 Units/5 Ml Syringe IV PUSH PRN PRN see comments below Hydromorphone HCl 0.25 mg 04/15/25 12:16 Hydromorphone Hcl Inj (*Crx) 1 Mg/Ml Syr IV PUSH Q5M PRN Pain Lactated Ringer's 1,000 mls @ 30 mls/hr 04/15/25 12:20 04/16/25 11:13 Lr - Lactated Ringers Iv IV CONT Not Given .Q24H BANG Lactated Ringer's 1,000 mls @ 30 mls/hr 04/15/25 12:20 04/16/25 11:13 Lr - Lactated Ringers Iv IV CONT Not Given .Q24H BANG Cefepime HCl 2 gm/ Sodium 50 mls @ 100 mls/hr 04/16/25 09:45 04/16/25 21:01 Chloride IVPB Infused Q12HR BANG Infusion Metoprolol Succinate 50 mg 04/09/25 23:50 04/16/25 16:23 Metoprolol Succinate Ext Rel 50 Mg Tabcr PO 50 mg BID BANG Administration Metronidazole 500 mg 04/16/25 10:00 04/17/25 06:05 Metronidazole 500 Mg Tablet PO 500 mg Q8HR BANG Administration Midodrine 10 mg 04/10/25 09:00 04/16/25 16:22 Midodrine Hcl 10 Mg Tablet PO 10 mg TID BANG Administration Ondansetron HCl 4 mg 04/09/25 23:50 04/13/25 16:17 Ondansetron Inj 4 Mg/2 Ml Vial IV PUSH 4 mg Q6H PRN Administration Nausea And Vomiting Ondansetron HCl 4 mg 04/15/25 12:16 Ondansetron Inj 4 Mg/2 Ml Vial IV PUSH ONCE PRN Nausea Perflutren Lipid Microsphere 0 ml 04/16/25 15:19 Perflutren Lipid Microspheres 1.5 Ml Vial Diluted To 10 Ml Total Volume IV PUSH 04/19/25 15:19 ONCE PRN adequate visualization Protocol Fluticasone/Salmeterol 2 puff 04/10/25 08:00 04/16/25 19:38 Fluticasone/Salmeterol 115-21 Mcg Inhaler 1 Puff INHALATION 2 puff Q12HRT BANG Administration Sodium Chloride 10 ml 04/12/25 14:00 04/17/25 06:06 Central Line Flush IV PUSH 10 ml Q8HR BANG Administration Tamsulosin HCl 0.8 mg 04/10/25 09:00 04/16/25 08:35 Tamsulosin Hcl 0.4 Mg Capsule PO 0.8 mg QAM BANG Administration Vitamin D 50 mcg 04/10/25 09:00 04/16/25 08:34 Cholecalciferol (Vitamin D3) 25 Mcg (1,000 Units) Tablet PO 50 mcg DAILY BANG Administration Radiology Results: ITS Impressions Abdomen/Pelvis CT 04/09/25 19:36 IMPRESSION: 1. Moderate emphysema with bronchial wall thickening and superimposed smooth septal line thickening and groundglass opacities in the bilateral lower lungs most likely pulmonary edema although differential would include pneumonia. 2. Moderate-sized left and small right pleural effusions. 3. Mild right hydronephrosis with bilateral intraureteral stents in expected position and Goodwin catheter in the decompressed bladder. There is some urothelial enhancement at the right renal pelvis which raises concern for ascending urinary tract infection and would correlate with urinalysis. Chest CTA 04/14/25 11:33 IMPRESSION: 1. No pulmonary embolism. 2. Small right and moderate to large left pleural effusions with likely secondary partial collapse of the left lower lobe. 3. Moderate emphysema superimposed mild pulmonary edema. 4. Likely tricuspid regurgitation with reflux of contrast into the inferior vena cava and right hepatic vein. 5. Unchanged mild right hydronephrosis. Thoracentesis Ultrasound 04/15/25 12:03 IMPRESSION: 1. Successful ultrasound-guided thoracentesis yielding 1000 mL of light reddish/cranberry colored fluid. Ureter Stent X-Ray 04/15/25 14:02 IMPRESSION: 1. Bilateral internal ureteral stent exchange. Please refer to real-time procedural findings for details. Chest X-Ray 04/16/25 08:46 IMPRESSION: 1. Decreasing small left pleural effusion with improving atelectasis and/or pneumonia at the left lung base. 2. Emphysema with persistent diffuse increased interstitial pattern which could represent mild pulmonary edema and/or chronic interstitial lung disease. Labs Labs: Laboratory Results - last 24 hr 04/15/25 04/17/25 09:14 06:04 WBC 5.4 RBC 2.33 L Hgb 7.9 L Hct 24.2 L MCV 103.9 H MCH 33.9 MCHC 32.6 RDW 15.2 H Plt Count 104 L MPV 11.1 H Sodium 132 L Potassium 4.2 Chloride 107 Carbon Dioxide 22 Anion Gap 3 L BUN 27 H Creatinine 1.39 H Estim Creat Clear Calc 52 Estimated GFR 51 L Glucose 90 Calcium 7.6 L Total Bilirubin 0.2 AST 21 ALT 14 Alkaline Phosphatase 81 Total Protein 5.2 L Albumin 2.1 L Fluid Glucose 83 Fluid Total Protein 3.3 Fluid Albumin 1.4 Fluid LDH 203 Fluid Amylase 20 Fluid Triglycerides 20 Quality VTE Prophylaxis VTE prophylaxis: mechanical ordered (SCDs)
[2025-04-17] MEDS: METOPROLOL SUCCINATE EXT REL 50 MG TABCR PO ×2 (09:19→17:09)
[2025-04-17] MEDS: CHOLECALCIFEROL (VITAMIN D3) 25 MCG (1,000 UNITS) TABLET 50 MCG PO (09:20)
[2025-04-17] MEDS: DIGOXIN TAB 125 MCG TABLET PO ×2 (09:20→17:09)
[2025-04-17] MEDS: MIDODRINE HCL 10 MG TABLET PO ×3 (09:20→17:09)
[2025-04-17] MEDS: TAMSULOSIN HCL 0.4 MG CAPSULE 0.8 MG PO (09:20)
[2025-04-17] MEDS: ASPIRIN 325 MG ENTERIC TABLET PO (09:20)
[2025-04-17] MEDS: ATORVASTATIN 40 MG TABLET PO (09:20)
[2025-04-17] MEDS: CEFEPIME 2 GM in SODIUM CHLORIDE 0.9% IV 50 ML 100 ML IVPB ×2 (09:21→21:31)
[2025-04-17] MEDS: ACETAMINOPHEN 500 MG TABLET 1000 MG PO (11:14)
--- NOTE | 2025-04-17 22:35 | PC.NURSE ---
Ann gave bed. Report called to Blake Juarez RN @[phone].
[2025-04-18 21:06] LABS: Adenosine Deaminase RBC 464 mU/g Hb (400-900)
--- NOTE | 2025-04-19 14:42 | PM.TDS ---
Transfer Discharge Sum: Prov Provider Date of admission: 04/11/25 14:30 Primary care physician: Raya Lozoya, PA Admitting clinician: Carmen Gautam DO Consults: 04/10/25 Consult to Dietitian Routine Reason for Consult:: Protein calorie malnutrition Consult to Physician Routine Comment: Spoke to Dr Nava @ 08:51am (-US) Consulting Provider: Jorge Alberto Carlson security test engineer/MD group to consult: Dr. Carlson Reason for consultation: AFib RVR Has provider been notified: Yes Consult to Physician Routine Comment: Spoke to Dr Garcia on the floor @ 08:30am (-US) Consulting Provider: Lon Foster security test engineer/MD group to consult: Urology Reason for consultation: Pyelonephritis ureteral stent, bladder cancer Has provider been notified: Yes Attending physician on discharge: Troy Gabriel Discharging clinician: Jessica Taylor Anticipated date of transfer: 04/17/25 Receiving physician/facility: [facility], accepting physician is Dr. Ash[facility] DS: Admitting Diagnosis Discharge Date 04/17/25 Admitting Diagnosis acute respiratory failure with hypoxia pleural effusion afib rvr pyelonephritis chronic goodwin ckd severe protein calorie malnutrition DS: Discharge Diagnosis Discharge Diagnosis (1) Acute respiratory failure with hypoxia: Code(s): J96.01 - Acute respiratory failure with hypoxia Status: Acute (2) Pleural effusion: Code(s): J90 - Pleural effusion, not elsewhere classified Status: Acute (3) Atrial fibrillation with RVR: Code(s): I48.91 - Unspecified atrial fibrillation Status: Acute (4) Pyelonephritis: Code(s): N12 - Tubulo-interstitial nephritis, not specified as acute or chronic Status: Acute (5) Chronic indwelling Goodwin catheter: Code(s): Z97.8 - Presence of other specified devices Status: Acute (6) CKD (chronic kidney disease) stage 3, GFR 30-59 ml/min: Qualifiers: Chronic kidney disease stage 3 subtype: stage 3a (GFR 45-59) Qualified Code(s): N18.31 - Chronic kidney disease, stage 3a Code(s): N18.30 - Chronic kidney disease, stage 3 unspecified Status: Acute (7) Severe protein-calorie malnutrition: Code(s): E43 - Unspecified severe protein-calorie malnutrition Status: Acute Transfer Discharge Sum: Med Medications Active and Home Medications: Home Medications nitroglycerin 0.4 mg sublingual tablet 0.4 mg sublingual Q5M PRN Chest Pain 02/09/21 [History Confirmed 04/09/25] vitamin B12 0.5 mg-folic acid 1 mg tablet 1 tablet PO DAILY 02/09/21 [History Confirmed 04/09/25] aspirin 325 mg tablet,delayed release 325 mg PO DAILY 12/20/21 [History Confirmed 04/09/25] atorvastatin 40 mg tablet 40 mg PO DAILY 12/27/21 [History Confirmed 04/09/25] tamsulosin 0.4 mg capsule 0.8 mg PO QAM 02/18/23 [History Confirmed 04/09/25] albuterol sulfate 90 mcg/actuation aerosol inhaler 2 puff inhalation Q6H PRN shortness of breath or wheezing 12/02/24 [History Confirmed 04/09/25] budesonide-formoterol HFA 160 mcg-4.5 mcg/actuation aerosol inhaler (Symbicort) 2 puff inhalation DAILY 12/02/24 [History Confirmed 04/09/25] cholecalciferol (vitamin D3) 50 mcg (2,000 unit) capsule 50 mcg PO DAILY 03/15/25 [History Confirmed 04/09/25] digoxin 125 mcg (0.125 mg) tablet 125 mcg PO BID #60 tabs 04/01/25 [Rx Confirmed 04/09/25] diltiazem HCl 30 mg tablet 30 mg PO BID #60 tabs 04/01/25 [Rx Confirmed 04/09/25] linezolid 600 mg tablet 600 mg PO Q12HR #12 tabs 04/01/25 [Rx Confirmed 04/09/25] metoprolol succinate 50 mg tablet,extended release 24 hr 50 mg PO BID #60 tabs 04/01/25 [Rx Confirmed 04/09/25] acetaminophen 500 mg capsule 1,000 mg PO Q6H PRN pain 04/09/25 [History Confirmed 04/09/25] lidocaine-prilocaine 2.5 %-2.5 % topical cream 04/09/25 [History] Transfer Discharge Sum: Hosp Hospital Course Hospital course: Stanislav Cho is a 69 year old male with a past medical history of emphysema, rheumatoid arthritis, relatively recent diagnosis within the year of atrial fibrillation, chronic kidney disease stage 3, BPH, and recent diagnosis stage II high-grade invasive urothelial carcinoma status post TURBT 12/2024 who presented to the hospital from cancer center due to low blood pressures. During admission patient hypoxic requiring oxygen supplementation. Given hypoxia and cocurrent tachycardia a chest CTA was obtained. CTA chest showed no PE but a small right and moderate to large left pleural effusions with likely secondary partial collapse of the left lower lobe. Moderate emphysema superimposed mild pulmonary edema. This pleural effusion was noted to be enlarged from prior CTA in 03/25. Thoracentesis performed on 04/15 with 1L removed, postthora cxr showed small to mod left pleural effusion. Although patient remained afebrile, WBC WNL and denies a cough patient was start on antibiotics given ongoing effusion, pending cultures. Patient has history of cancer, possible metastasis although no nodules or masses noted on recent imaging. Patient does state history of lung nodules, seen on PET scan. An echo was obtained to assess cardiac involvement of the effusion and showed LVEF 50-55% with normal diastolic function, mild to mod tricuspid valve regurgitation. Following thoracentesis patient was able to wean back to room air. A repeat CXR to assess for pleural effusion reaccumulation was negative. Per lights criteria the effusion is likely exudative, increase concern for metastatic etiology. Awaiting gram stain and culture results. Discussed patient with pulmonology Dr. Miner in regards to patients pleural effusion care. She states that there is increased concern that this is likely metastatic given the cell counts and that the fluid appearance being red. During transfer discussion with [facility] cardiology they were updated about the pleural effusion and concern for metastatic disease. During admission patient noted to be in AFib RVR. Cardiology consulted and patient remained on Digoxin 125 mcg BID, Metoprolol Succinate 50 mg BID, Diltiazem 30 mg BID. His blood pressures remained low requiring midodrine for support. Despite being on these medications patients blood pressures remained consistently in the 90s systolic and patient would intermittently develop dizziness with slight position changes in the bed. He would also remain in afib RVR. Cardiology reevaluated and recommended transfer to another hospital with EP to control HR or consider AV node ablation/pacemaker implant for his rapid atrial fib. Patient agreeable to transfer. Acceptance obtained from [facility] Cardiology Dr. Rawnsley. On admission patients UA concerning for infection. Started on antibiotics at that time. Abdomen/pelvis CT showed mild right hydronephrosis with bilateral intraureteral stents in expected position and Goodwin catheter in the decompressed bladder. There is some urothelial enhancement at the right renal pelvis which raises concern for ascending urinary tract infection and would correlate with urinalysis. Urine culture negative. Chronic CKD, renal function remained at baseline throughout admission. Patient completed antibiotic course during admission for UTI. During admission patient evaluated by Urology for stent exchange. Patient underwent a cystoscopy with bilateral ureteral stent exchange, bilateral retrograde pyelogram on 04/[address] Foster. Patient transferred to [facility] in a stable condition. Patient Condition: Stable Time Spent with Patient Time attestation: Total time spent providing and/or coordinating transfer services: Total time spent: Greater than 30 minutes Exam Narrative: AF HR 105 RR 21 SpO2 93 BP 92/59 General: male in no acute respiratory distress who is nontoxic appearing, sitting up in bed. HEENT: Normocephalic. Atraumatic. Extraocular movement intact. Sclera clear and anicteric. No facial asymmetry. Chest: Lungs diminishment to auscultation bilaterally L>R. CV: Heart was irregularly irregular rate and rhythm. Abd: Abdomen was soft. Nontender. Nondistended. Positive bowel sounds. : goodwin with bloody urine, no clots Ext: No clubbing, cyanosis, or edema. DP pulses bilaterally. Neuro: Patient is alert and oriented x4. Speech is clear. DS: Data Data Completed and Pending Completed studies during hospitalization: Chest x-ray Chest x-ray Ureter stent x-ray Thoracentesis ultrasound Chest x-ray Chest CTA Abdomen pelvis CT Pending studies at discharge: Pending at discharge 04/14/25 13:03 Cytology [PTH] Routine Labs on day of discharge: Labs from last 24 hours 04/15/25 04/14/25 09:14 15:08 RBC Adenosine Deaminase 464 Pleural RBC 15616 H Preliminary micro results at discharge 04/15/25 09:14 Anaerobic Culture Extend Incubation - Preliminary Thoracentesis Fluid Sterile Body Fluid Culture - Preliminary 04/15/25 09:14 Acid Fast Bacilli Culture - Preliminary Pleural Fluid
== END 2025-04-17 23:45 | disposition short-term general hospital (02) | DRG 659 ==
LOC: ANHED 18:10 → ANH3MEDSUR 21:54 → ANH2MED 22:16
PROVIDERS: Internal Medicine Cardiovascular Disease; Nurse Practitioner; Urology; Admitting Provider Internal Medicine; Emergency Provider Physician Assistant; PCP Physician Assistant; Visit Provider Student in an Organized Health Care Education/Training Program
PROC: 0T788DZ Dilation of Bilateral Ureters with Intraluminal Device, Via Natural or Artificial Opening Endoscopic (ICD-10-PCS; CPT 52352; principal; 2025-04-15 08:15)
DX: N10 Acute pyelonephritis (principal); E43 Unspecified severe protein-calorie malnutrition; J96.01 Acute respiratory failure with hypoxia; E44.0 Moderate protein-calorie malnutrition; M86.8X8 Other osteomyelitis, other site; J98.19 Other pulmonary collapse; J91.8 Pleural effusion in other conditions classified elsewhere; I48.91 Unspecified atrial fibrillation; N18.31 Chronic kidney disease, stage 3a; N13.30 Unspecified hydronephrosis; N13.9 Obstructive and reflux uropathy, unspecified; C67.9 Malignant neoplasm of bladder, unspecified; M06.9 Rheumatoid arthritis, unspecified; J43.9 Emphysema, unspecified; E78.5 Hyperlipidemia, unspecified; N40.0 Benign prostatic hyperplasia without lower urinary tract symptoms; Z85.51 Personal history of malignant neoplasm of bladder; Z85.46 Personal history of malignant neoplasm of prostate; Z85.828 Personal history of other malignant neoplasm of skin; Z87.891 Personal history of nicotine dependence; Z68.27 Body mass index [BMI] 27.0-27.9, adult
CPT/HCPCS: 32555; 36415; 71045; 71275; 74177; 77386; 80053; 80162; 81001; 82040; 82042; 82150; 82247; 82465; 82945; 82947; 83615; 83690; 83986; 84155; 84157; 84311; 84478; 85025; 85027; 85610; 87040; 87086; 87206; 88108; 88305; 88342; 89051; 93005; 93306; 94640; 96361; 96365; 97110; 97116; 97161; 97165; 99285; J0690; A9270; C1758; C1769; C2617; G0378; J0692; J0696; J1642; J2003; J2250; J2371; J2405; J2704; J7030; J7120; Q9966; Q9967